=== PATIENT | male | born 1970 | race Caucasian/White ===

== ENCOUNTER → 2019-12-30 | Outpatient (CLI) | payer SELFPAY ==
[2019-12-31 01:21] LABS: African American GFR (CKD) 49.8 (60.0-200.0); Anion Gap 12.9 mmol/L (4.00-12.00); BUN/Creat Ratio 12.78 Ratio (12.00-20.00); Calcium 7.8 mg/dL (8.7-10.3); Carbon Dioxide 26.1 mmol/L (21.6-31.8); Magnesium 1.6 mg/dL (1.5-2.4); Potassium 2.9 mmol/L (3.5-5.5)
[2019-12-31 02:49] LABS: Non-African American GFR(CKD) 42.9 (60.0-200.0)
== END | disposition home or self-care (01) ==
LOC: LABWHC1 14:58
PROVIDERS: ATTEND Internal Medicine
DX: N18.6 End stage renal disease (principal)
CPT/HCPCS: 36415; 80048; 83735

== ENCOUNTER → 2020-01-19 | Outpatient (CLI) | payer OTHER ==
[2020-01-20 03:12] LABS: Anion Gap 16.9 mmol/L (4.00-12.00); Calcium 7.9 mg/dL (8.7-10.3); Carbon Dioxide 19.1 mmol/L (21.6-31.8); Magnesium 1.6 mg/dL (1.5-2.4); Potassium 4.3 mmol/L (3.5-5.5)
[2020-01-20 03:30] LABS: Non-African American GFR(CKD) 53.5 (60.0-200.0)
== END | disposition home or self-care (01) ==
LOC: LABWHC1 14:47
PROVIDERS: ATTEND Internal Medicine Nephrology
DX: E87.6 Hypokalemia (principal)
CPT/HCPCS: 36415; 80048; 83735

== ENCOUNTER 2020-01-24 15:13 | Inpatient (IN) | payer OTHER ==
[2020-01-24] MEDS ORDERED: cefTRIAXone IN SWFI 1,000 MG/10 ML SYRINGE IVP STA (15:31)
[2020-01-24] MEDS ORDERED: VANCOMYCIN IV PER PHARMACY 1 EACH MISC MISCELLANE PRN (15:31)
[2020-01-24] MEDS ORDERED: VANCOMYCIN 2,000 MG in SODIUM CHLORIDE 0.9% 500 ML 500 ML IVPB STA (15:35)
--- NOTE | 2020-01-24 15:44 | ED ---
General Adult HPI - General Chief complaint: Wound/Laceration Stated complaint: diabetic wound rt heel Time Seen by Provider: 01/24/20 15:23 Source: patient, RN notes reviewed, old records reviewed Mode of arrival: ambulatory Limitations: no limitations - History of Present Illness Initial comments: 49-year-old male history of type 2 diabetes presenting with left heel infection. Patient has history of chronic venous stasis, peripheral vascular disease, chronic kidney disease with a period of end-stage renal disease requiring hemodialysis. He has a right chest wall permacath. He is not currently on hemodialysis. He states he has not been monitoring his blood sugar at home. He was recently discharged from a group home and has been staying at home by himself. He denies significant pain. Denies fever or chills. - Related Data Home Medications Medication Instructions Recorded Confirmed Aspirin [[place] Aspirin EC] 81 mg PO DAILY 01/24/20 01/24/20 Multivitamins, Thera [Multivitamin 1 tab PO DAILY 01/24/20 01/24/20 (formulary)] Potassium Chloride ER [K-Dur 20] See Taper PO DAILY 01/24/20 01/24/20 Allergies Allergy/AdvReac Type Severity Reaction Status Date / Time Penicillins Allergy Swelling Verified 01/24/20 17:03 Sulfa (Sulfonamide Allergy Unknown Verified 01/24/20 17:03 Antibiotics) Review of Systems ROS Statement: Those systems with pertinent positive or pertinent negative responses have been documented in the HPI. ROS Other: All systems not noted in ROS Statement are negative. Past Medical History Past Medical History: Diabetes Mellitus History of Any Multi-Drug Resistant Organisms: MRSA Date of last positivie culture/infection: 2004 MDRO Source:: Rt shoulder Past Psychological History: No Psychological Hx Reported Smoking Status: Never smoker Past Alcohol Use History: None Reported, Unable to Obtain General Exam Limitations: no limitations General appearance: alert, in no apparent distress Head exam: Present: atraumatic, normocephalic Eye exam: Present: normal appearance, PERRL ENT exam: Present: normal exam Neck exam: Present: normal inspection. Absent: tenderness Respiratory exam: Present: normal lung sounds bilaterally. Absent: respiratory distress Cardiovascular Exam: Present: regular rate, normal rhythm GI/Abdominal exam: Present: soft. Absent: distended, tenderness, guarding Extremities exam: Present: other (Bilateral edema, chronic skin changes bilaterally, nonhealing wound to the left heel which is foul-smelling.) Neurological exam: Present: alert, oriented X3 Skin exam: Present: warm, dry, intact Course Vital Signs 01/24/20 01/24/20 15:16 17:12 Temperature 99.6 F Pulse Rate 92 96 Respiratory 18 18 Rate Blood Pressure 179/86 150/87 O2 Sat by Pulse 99 95 Oximetry - Reevaluation(s) Reevaluation #1: 01/24/20 16:36 While taking an x-ray, there was several maggots that fell from the left heel. Medical Decision Making - Medical Decision Making 49-year-old presenting with nonhealing wound on the left heel. This is gangrenous, x-ray tech does report that several maggots came from the wound when x-ray was being obtained. X-ray shows osteomyelitis, soft tissue area which is open to the environment. Patient has stable vital signs, hyperpyrexic but afebrile. He has normal white blood cell count, hemoglobin 9.6 with no baseline for comparison. He does have elevated blood sugar of 666, with pseudohyponatremia with sodium 128. His creatinine is normal at 0.08. Has a lactic acid 4.2 which I suspect is predominantly from dehydration secondary to hyperglycemia. He is given 1 L normal saline and placed on 75 mL an hour. He is immediately started on IV antibiotics, cultures have been obtained these results are pending. Patient will be admitted to internal medicine with both nephrology and vascular surgery on consult. - Lab Data Result diagrams: 01/24/20 16:24 01/24/20 16:24 Lab Results 01/24/20 01/24/20 01/24/20 Range/Units 16:24 16:24 16:24 WBC 7.5 (3.8-10.6) k/uL RBC 3.10 L (4.30-5.90) m/uL Hgb 9.6 L (13.0-17.5) gm/dL Hct 32.0 L (39.0-53.0) % MCV 103.4 H (80.0-100.0) fL MCH 31.0 (25.0-35.0) pg MCHC 30.0 L (31.0-37.0) g/dL RDW 14.6 (11.5-15.5) % Plt Count 242 (150-450) k/uL Neutrophils % 78 % Lymphocytes % 13 % Monocytes % 4 % Eosinophils % 1 % Basophils % 1 % Neutrophils # 5.9 (1.3-7.7) k/uL Lymphocytes # 1.0 (1.0-4.8) k/uL Monocytes # 0.3 (0-1.0) k/uL Eosinophils # 0.1 (0-0.7) k/uL Basophils # 0.1 (0-0.2) k/uL Hypochromasia Marked Macrocytosis Slight Sodium 128 L (137-145) mmol/L Potassium 4.7 (3.5-5.1) mmol/L Chloride 94 L (98-107) mmol/L Carbon Dioxide 24 (22-30) mmol/L Anion Gap 10 mmol/L BUN 12 (9-20) mg/dL Creatinine 1.08 (0.66-1.25) mg/dL Est GFR (CKD-EPI)AfAm >90 (>60 ml/min/1.73 sqM) Est GFR (CKD-EPI)NonAf 80 (>60 ml/min/1.73 sqM) Glucose 666 H* (74-99) mg/dL Plasma Lactic Acid Guille 4.2 H* (0.7-2.0) mmol/L Calcium 8.5 (8.4-10.2) mg/dL Magnesium 1.5 L (1.6-2.3) mg/dL Total Bilirubin 0.5 (0.2-1.3) mg/dL AST 29 (17-59) U/L ALT 12 (4-49) U/L Alkaline Phosphatase 315 H (38-126) U/L Total Protein 6.4 (6.3-8.2) g/dL Albumin 2.4 L (3.5-5.0) g/dL Disposition Clinical Impression: Hyperglycemia, Lactic acidosis, Diabetic foot ulcer Disposition: ADMITTED IP TO THIS [facility] Condition: Stable Is patient prescribed a controlled substance at d/c from ED?: No Referrals: Edson Urias MD [Primary Care Provider] - 1-2 days Decision to Admit Reason: Admit from EC Decision Date: 01/24/20 Decision Time: 17:17
[2020-01-24 16:36] LABS: Basophils # (A) 0.1 k/uL (0-0.2); Basophils % (A) 1 %; Eosinophils # (A) 0.1 k/uL (0-0.7); Eosinophils % (A) 1 %; HGB 9.6 gm/dL (13.0-17.5); Hypochromasia Marked; Lymphocytes % (A) 13 %; MCV 103.4 fL (80.0-100.0); Macrocytosis Slight; Mean Platelet Volume 8.9; Monocytes # (A) 0.3 k/uL (0-1.0); Monocytes % (A) 4 %; Neutrophils # (A) 5.9 k/uL (1.3-7.7); Neutrophils % (A) 78 %; Platelet Count 242 k/uL (150-450); RDW 14.6 % (11.5-15.5); WBC 7.5 k/uL (3.8-10.6)
[2020-01-24 16:47] LABS: ALT 12 U/L (4-49); AST 29 U/L (17-59); African American GFR (CKD) >90 (>60 ml/min/1.73 sqM); Albumin 2.4 g/dL (3.5-5.0); Alkaline Phosphatase 315 U/L (38-126); Anion Gap 10 mmol/L; Blood Urea Nitrogen 12 mg/dL (9-20); Calcium 8.5 mg/dL (8.4-10.2); Carbon Dioxide 24 mmol/L (22-30); Chloride 94 mmol/L (98-107); Magnesium 1.5 mg/dL (1.6-2.3); Non-African American GFR(CKD) 80 (>60 ml/min/1.73 sqM); Potassium 4.7 mmol/L (3.5-5.1); Sodium 128 mmol/L (137-145); Total Bilirubin 0.5 mg/dL (0.2-1.3); Total Protein 6.4 g/dL (6.3-8.2)
[2020-01-24] MEDS ORDERED: HYDROmorphone 0.5 MG/0.5 ML SYRINGE IVP PRN (16:57)
[2020-01-24] MEDS ORDERED: ACETAMINOPHEN TAB 325 MG TAB PO PRN (16:57)
[2020-01-24] MEDS ORDERED: NALOXONE 0.4 MG/ML 1 ML VIAL IV PRN (16:57)
[2020-01-24 17:03] LABS: Glucose 666 mg/dL (74-99)
--- NOTE | 2020-01-24 17:04 | XR ---
EXAMINATION TYPE: XR foot complete LT DATE OF EXAM: 01/24/2020 COMPARISON: NONE HISTORY: Infection TECHNIQUE: 3 views FINDINGS: There is plantar and Achilles calcaneal spurring. Plantar spurring is slightly irregular on the cortical surface. There is apparent large ulcer defect with soft tissue air at the plantar aspec t of the calcaneus. There is vascular calcification. There is soft tissue swelling of the forefoot. IMPRESSION: Soft tissue air. Osteomyelitis of the plantar aspect of the posterior calcaneus is possib le. No fracture. Extensive vascular calcification.
[2020-01-24] MEDS ORDERED: SODIUM CHLORIDE 0.9% 500 ML 500 ML IV ONE ×2 (17:09→17:16)
[2020-01-24] MEDS ORDERED: INSULIN REGULAR 100 UNIT in SODIUM CHLORIDE 0.9% 100 ML IV SCH (17:15)
[2020-01-24] MEDS: SODIUM CHLORIDE 0.9% 1,000 ML IV SCH (17:31)
[2020-01-24 18:58] LABS: Glucose,Whole Blood >600 mg/dL (75-99)
[2020-01-24 18:58] LABS: Glucose,Whole Blood >600 mg/dL (75-99)
[2020-01-25] MEDS: INSULIN REGULAR 100 UNIT in SODIUM CHLORIDE 0.9% 100 ML IV SCH ×2 (01:25→03:14)
[2020-01-25 02:01] LABS: Glucose,Whole Blood 450 mg/dL (75-99)
[2020-01-25 02:32] LABS: Glucose,Whole Blood 382 mg/dL (75-99)
[2020-01-25 03:04] LABS: Glucose,Whole Blood 331 mg/dL (75-99)
[2020-01-25 03:39] LABS: Glucose,Whole Blood 255 mg/dL (75-99)
[2020-01-25 04:17] LABS: Glucose,Whole Blood 199 mg/dL (75-99)
[2020-01-25] MEDS: VANCOMYCIN 1,750 MG in SODIUM CHLORIDE 0.9% 500 ML 500 ML IVPB SCH ×2 (04:19→17:44)
[2020-01-25 04:46] LABS: Glucose,Whole Blood 174 mg/dL (75-99)
[2020-01-25] MEDS: SODIUM CHLORIDE 0.9% 1,000 ML IV SCH ×2 (05:48→17:55)
[2020-01-25 06:34] LABS: Glucose,Whole Blood 117 mg/dL (75-99)
[2020-01-25 07:43] LABS: Glucose,Whole Blood 152 mg/dL (75-99)
[2020-01-25 08:37] LABS: African American GFR (CKD) >90 (>60 ml/min/1.73 sqM); Non-African American GFR(CKD) >90 (>60 ml/min/1.73 sqM)
--- NOTE | 2020-01-25 09:27 | P.GSCN ---
History of Present Illness History of present illness: 49-year-old white , male, patient is known to me from the past he has history of coronary failure be placed right IJ catheter in the past he's not on dialysis anymore he has a wound on his left heel 7 x 8 cm with foul-smelling necrotic wound with maggots he also has a venous stasis ulcer superficial ulcer on his left lower extremity. Medical history history of diabetes, history of chronic renal failure, history of venous hypertension with the following order wound on his left heel Neck examination neck is supple no bruit appreciated Chest is clear first and second sound normal patient has a right IJ catheter on the chest and right chest wall Abdomen soft and nontender Vascular femorals 1+ PTDP not palpable patient has a follow order wound on his left left heel measurement is 7 x 8 cm with the maggots Plan is debridement of the wound with deep culture and removal of the dialysis catheter patient doesn't want anymore dialysis Past Medical History Past Medical History: Diabetes Mellitus, Sleep Apnea/CPAP/BIPAP Additional Past Medical History / Comment(s): CHF, neuropathy History of Any Multi-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:: 2004 MDRO Source:: Rt shoulder Past Surgical History: Orthopedic Surgery Additional Past Surgical History / Comment(s): carpal tunnel in right wrist, MRSA infection drain in right shoulder Past Anesthesia/Blood Transfusion Reactions: No Reported Reaction Past Psychological History: No Psychological Hx Reported Smoking Status: Never smoker Past Alcohol Use History: None Reported, Unable to Obtain Past Drug Use History: None Reported Medications and Allergies Home Medications Medication Instructions Recorded Confirmed Type Aspirin [[place] Aspirin EC] 81 mg PO DAILY 01/24/20 01/24/20 History Multivitamins, Thera [Multivitamin 1 tab PO DAILY 01/24/20 01/24/20 History (formulary)] Potassium Chloride ER [K-Dur 20] See Taper PO DAILY 01/24/20 01/24/20 History Allergies Allergy/AdvReac Type Severity Reaction Status Date / Time Penicillins Allergy Swelling Verified 01/24/20 17:03 Sulfa (Sulfonamide Allergy Unknown Verified 01/24/20 17:03 Antibiotics) Surgical - Exam Vital Signs Temp Pulse Resp BP Pulse Ox 99.6 F 92 18 179/86 99 01/24/20 15:16 01/24/20 15:16 01/24/20 15:16 01/24/20 15:16 01/24/20 15:16 Results - Labs 01/24/20 16:24 01/25/20 08:02 Abnormal Lab Results - Last 24 Hours (Table) 01/24/20 01/24/20 01/24/20 Range/Units 16:24 16:24 16:24 RBC 3.10 L (4.30-5.90) m/uL Hgb 9.6 L (13.0-17.5) gm/dL Hct 32.0 L (39.0-53.0) % MCV 103.4 H (80.0-100.0) fL MCHC 30.0 L (31.0-37.0) g/dL Sodium 128 L (137-145) mmol/L Chloride 94 L (98-107) mmol/L Glucose 666 H* (74-99) mg/dL POC Glucose (mg/dL) (75-99) mg/dL Plasma Lactic Acid Guille 4.2 H* (0.7-2.0) mmol/L Magnesium 1.5 L (1.6-2.3) mg/dL Alkaline Phosphatase 315 H (38-126) U/L Albumin 2.4 L (3.5-5.0) g/dL 01/24/20 01/24/20 01/24/20 Range/Units 18:49 18:52 19:09 RBC (4.30-5.90) m/uL Hgb (13.0-17.5) gm/dL Hct (39.0-53.0) % MCV (80.0-100.0) fL MCHC (31.0-37.0) g/dL Sodium (137-145) mmol/L Chloride (98-107) mmol/L Glucose 681 H* (74-99) mg/dL POC Glucose (mg/dL) >600 H >600 H (75-99) mg/dL Plasma Lactic Acid Guille (0.7-2.0) mmol/L Magnesium (1.6-2.3) mg/dL Alkaline Phosphatase (38-126) U/L Albumin (3.5-5.0) g/dL 01/24/20 01/25/20 01/25/20 Range/Units 22:35 00:23 01:59 RBC (4.30-5.90) m/uL Hgb (13.0-17.5) gm/dL Hct (39.0-53.0) % MCV (80.0-100.0) fL MCHC (31.0-37.0) g/dL Sodium (137-145) mmol/L Chloride (98-107) mmol/L Glucose 685 H* 590 H* (74-99) mg/dL POC Glucose (mg/dL) 450 H (75-99) mg/dL Plasma Lactic Acid Guille (0.7-2.0) mmol/L Magnesium (1.6-2.3) mg/dL Alkaline Phosphatase (38-126) U/L Albumin (3.5-5.0) g/dL 01/25/20 01/25/20 01/25/20 Range/Units 02:30 03:01 03:37 RBC (4.30-5.90) m/uL Hgb (13.0-17.5) gm/dL Hct (39.0-53.0) % MCV (80.0-100.0) fL MCHC (31.0-37.0) g/dL Sodium (137-145) mmol/L Chloride (98-107) mmol/L Glucose (74-99) mg/dL POC Glucose (mg/dL) 382 H 331 H 255 H (75-99) mg/dL Plasma Lactic Acid Guille (0.7-2.0) mmol/L Magnesium (1.6-2.3) mg/dL Alkaline Phosphatase (38-126) U/L Albumin (3.5-5.0) g/dL 01/25/20 01/25/20 01/25/20 Range/Units 04:16 04:43 06:32 RBC (4.30-5.90) m/uL Hgb (13.0-17.5) gm/dL Hct (39.0-53.0) % MCV (80.0-100.0) fL MCHC (31.0-37.0) g/dL Sodium (137-145) mmol/L Chloride (98-107) mmol/L Glucose (74-99) mg/dL POC Glucose (mg/dL) 199 H 174 H 117 H (75-99) mg/dL Plasma Lactic Acid Guille (0.7-2.0) mmol/L Magnesium (1.6-2.3) mg/dL Alkaline Phosphatase (38-126) U/L Albumin (3.5-5.0) g/dL 01/25/20 Range/Units 07:33 RBC (4.30-5.90) m/uL Hgb (13.0-17.5) gm/dL Hct (39.0-53.0) % MCV (80.0-100.0) fL MCHC (31.0-37.0) g/dL Sodium (137-145) mmol/L Chloride (98-107) mmol/L Glucose (74-99) mg/dL POC Glucose (mg/dL) 152 H (75-99) mg/dL Plasma Lactic Acid Guille (0.7-2.0) mmol/L Magnesium (1.6-2.3) mg/dL Alkaline Phosphatase (38-126) U/L Albumin (3.5-5.0) g/dL Diabetes panel 01/24/20 01/24/20 01/24/20 Range/Units 16:24 19:09 22:35 Sodium 128 L (137-145) mmol/L Potassium 4.7 (3.5-5.1) mmol/L Chloride 94 L (98-107) mmol/L Carbon Dioxide 24 (22-30) mmol/L BUN 12 (9-20) mg/dL Creatinine 1.08 (0.66-1.25) mg/dL Glucose 666 H* 681 H* 685 H* (74-99) mg/dL Calcium 8.5 (8.4-10.2) mg/dL AST 29 (17-59) U/L ALT 12 (4-49) U/L Alkaline Phosphatase 315 H (38-126) U/L Total Protein 6.4 (6.3-8.2) g/dL Albumin 2.4 L (3.5-5.0) g/dL 01/25/20 01/25/20 Range/Units 00:23 08:02 Sodium (137-145) mmol/L Potassium (3.5-5.1) mmol/L Chloride (98-107) mmol/L Carbon Dioxide (22-30) mmol/L BUN (9-20) mg/dL Creatinine 0.98 (0.66-1.25) mg/dL Glucose 590 H* (74-99) mg/dL Calcium (8.4-10.2) mg/dL AST (17-59) U/L ALT (4-49) U/L Alkaline Phosphatase (38-126) U/L Total Protein (6.3-8.2) g/dL Albumin (3.5-5.0) g/dL Calcium panel 01/24/20 Range/Units 16:24 Calcium 8.5 (8.4-10.2) mg/dL Albumin 2.4 L (3.5-5.0) g/dL Pituitary panel 01/24/20 01/24/20 01/24/20 Range/Units 16:24 19:09 22:35 Sodium 128 L (137-145) mmol/L Potassium 4.7 (3.5-5.1) mmol/L Chloride 94 L (98-107) mmol/L Carbon Dioxide 24 (22-30) mmol/L BUN 12 (9-20) mg/dL Creatinine 1.08 (0.66-1.25) mg/dL Glucose 666 H* 681 H* 685 H* (74-99) mg/dL Calcium 8.5 (8.4-10.2) mg/dL 01/25/20 01/25/20 Range/Units 00:23 08:02 Sodium (137-145) mmol/L Potassium (3.5-5.1) mmol/L Chloride (98-107) mmol/L Carbon Dioxide (22-30) mmol/L BUN (9-20) mg/dL Creatinine 0.98 (0.66-1.25) mg/dL Glucose 590 H* (74-99) mg/dL Calcium (8.4-10.2) mg/dL Adrenal panel 01/24/20 01/24/20 01/24/20 Range/Units 16:24 19:09 22:35 Sodium 128 L (137-145) mmol/L Potassium 4.7 (3.5-5.1) mmol/L Chloride 94 L (98-107) mmol/L Carbon Dioxide 24 (22-30) mmol/L BUN 12 (9-20) mg/dL Creatinine 1.08 (0.66-1.25) mg/dL Glucose 666 H* 681 H* 685 H* (74-99) mg/dL Calcium 8.5 (8.4-10.2) mg/dL Total Bilirubin 0.5 (0.2-1.3) mg/dL AST 29 (17-59) U/L ALT 12 (4-49) U/L Alkaline Phosphatase 315 H (38-126) U/L Total Protein 6.4 (6.3-8.2) g/dL Albumin 2.4 L (3.5-5.0) g/dL 01/25/20 01/25/20 Range/Units 00:23 08:02 Sodium (137-145) mmol/L Potassium (3.5-5.1) mmol/L Chloride (98-107) mmol/L Carbon Dioxide (22-30) mmol/L BUN (9-20) mg/dL Creatinine 0.98 (0.66-1.25) mg/dL Glucose 590 H* (74-99) mg/dL Calcium (8.4-10.2) mg/dL Total Bilirubin (0.2-1.3) mg/dL AST (17-59) U/L ALT (4-49) U/L Alkaline Phosphatase (38-126) U/L Total Protein (6.3-8.2) g/dL Albumin (3.5-5.0) g/dL
[2020-01-25 09:42] LABS: Glucose,Whole Blood 184 mg/dL (75-99)
[2020-01-25 11:42] LABS: Glucose,Whole Blood 132 mg/dL (75-99)
[2020-01-25] MEDS: INSULIN ASPART (NovoLOG) 100 UNIT/ML VIAL SQ SCH ×3 (12:42→20:37)
[2020-01-25 13:38] VITALS: BMI 40.3
[2020-01-25 14:02] LABS: Anion Gap 6 mmol/L; Blood Urea Nitrogen 12 mg/dL (9-20); Calcium 8.1 mg/dL (8.4-10.2); Carbon Dioxide 25 mmol/L (22-30); Chloride 104 mmol/L (98-107); Glucose 159 mg/dL (74-99); Potassium 4.1 mmol/L (3.5-5.1); Sodium 135 mmol/L (137-145)
--- NOTE | 2020-01-25 14:21 | P.HPIM ---
History of Present Illness This is a pleasant 49 years old male with past medical history of diabetes mellitus, sleep apnea CPAP/BiPAP, neuropathy, CHF. History of MRSA infection. He presents because of diabetic left foot ulcer which she hasn't for about one month He denies chest pain, no dyspnea, no coughing, no diarrhea, no dysuria, no vomiting. No fever Labs showing sugar is controlled. Creatinine is within normal limits at 0.98 Foot x-ray showing soft tissue air, osteomyelitis of the posterior calcaneus as possible On admission patient was started on vancomycin, and ceftriaxone , also on normal saline at 75 mL/h Dr. Hernández from surgical team was consulted and is planning for debridement. , Patient states that he was taking insulin 70:30 as 110 units twice a day, he was not checking his sugar because he ran out of the supply Review of Systems CONSTITUTIONAL: No fever, no malaise, no fatigue. HEENT: No recent visual problems or hearing problems. Denied any sore throat. CARDIOVASCULAR: No orthopnea, PND, no palpitations, no syncope. PULMONARY: No shortness of breath, no cough, no hemoptysis. GASTROINTESTINAL: No diarrhea, no nausea, no vomiting, no abdominal pain. Normoactive bowel sounds. NEUROLOGICAL: No headaches, no weakness, no numbness. HEMATOLOGICAL: Denies any bleeding or petechiae. GENITOURINARY: Denies any burning micturition, frequency, or urgency. MUSCULOSKELETAL/RHEUMATOLOGICAL: Denies any joint pain, swelling, or any muscle pain. ENDOCRINE: Denies any polyuria or polydipsia. Past Medical History Past Medical History: Diabetes Mellitus, Sleep Apnea/CPAP/BIPAP Additional Past Medical History / Comment(s): CHF, neuropathy History of Any Multi-Drug Resistant Organisms: MRSA Date of last positivie culture/infection: 2004 MDRO Source:: Rt shoulder Past Surgical History: Orthopedic Surgery Additional Past Surgical History / Comment(s): carpal tunnel in right wrist, MRSA infection drain in right shoulder Past Anesthesia/Blood Transfusion Reactions: No Reported Reaction Past Psychological History: No Psychological Hx Reported Smoking Status: Never smoker Past Alcohol Use History: None Reported, Unable to Obtain Past Drug Use History: None Reported Medications and Allergies Home Medications Medication Instructions Recorded Confirmed Type Aspirin [[place] Aspirin EC] 81 mg PO DAILY 01/24/20 01/24/20 History Multivitamins, Thera [Multivitamin 1 tab PO DAILY 01/24/20 01/24/20 History (formulary)] Potassium Chloride ER [K-Dur 20] See Taper PO DAILY 01/24/20 01/24/20 History Allergies Allergy/AdvReac Type Severity Reaction Status Date / Time Penicillins Allergy Swelling Verified 01/24/20 17:03 Sulfa (Sulfonamide Allergy Unknown Verified 01/24/20 17:03 Antibiotics) Physical Exam Vitals: Vital Signs Temp Pulse Pulse Resp BP BP BP 01/25/20 07:45 18 01/25/20 07:00 98.3 F 80 18 123/82 01/25/20 01:00 99.3 F 94 20 137/76 01/24/20 18:50 98.5 F 92 18 131/80 01/24/20 17:12 96 18 150/87 01/24/20 15:16 99.6 F 92 18 179/86 Pulse Ox 01/25/20 07:45 01/25/20 07:00 100 01/25/20 01:00 98 01/24/20 18:50 95 01/24/20 17:12 95 01/24/20 15:16 99 Intake and Output 01/24/20 01/25/20 01/25/20 22:59 06:59 14:59 Intake Total 200 124.066 17.117 Balance 200 124.066 17.117 Intake: Intake, IV Titration 74.066 17.117 Amount Insulin Regular 100 unit 74.066 17.117 In Sodium Chloride 0.9% 100 ml @ Titrate IV .Q0M [facility] Rx#:[id number] Oral 200 Blood Product 50 Other: Voiding Method Toilet Toilet Diaper Diaper Incontinent Incontinent # Voids 2 2 # Bowel Movements 1 Weight 113.398 kg 113.398 kg GENERAL: The patient is alert and oriented x3, not in any acute distress. Well developed, well nourished. HEENT: Pupils are round and equally reacting to light. EOMI. No scleral icterus. No conjunctival pallor. Normocephalic, atraumatic. No pharyngeal erythema. No thyromegaly. CARDIOVASCULAR: S1 and S2 present. No murmurs, rubs, or gallops. PULMONARY: Chest is clear to auscultation, no wheezing or crackles. ABDOMEN: Soft, nontender, nondistended, normoactive bowel sounds. No palpable organomegaly. MUSCULOSKELETAL: No joint swelling or deformity. -EXTREMITIES: No cyanosis, clubbing, or pedal edema. Left foot ulcer, with dressing NEUROLOGICAL: Gross neurological examination did not reveal any focal deficits. SKIN: No rashes. No petechiae Results CBC & Chem 7: 01/24/20 16:24 01/25/20 08:02 Labs: Abnormal Lab Results - Last 24 Hours (Table) 01/24/20 01/24/20 01/24/20 Range/Units 16:24 16:24 16:24 RBC 3.10 L (4.30-5.90) m/uL Hgb 9.6 L (13.0-17.5) gm/dL Hct 32.0 L (39.0-53.0) % MCV 103.4 H (80.0-100.0) fL MCHC 30.0 L (31.0-37.0) g/dL Sodium 128 L (137-145) mmol/L Chloride 94 L (98-107) mmol/L Glucose 666 H* (74-99) mg/dL POC Glucose (mg/dL) (75-99) mg/dL Plasma Lactic Acid Guille 4.2 H* (0.7-2.0) mmol/L Calcium (8.4-10.2) mg/dL Magnesium 1.5 L (1.6-2.3) mg/dL Alkaline Phosphatase 315 H (38-126) U/L Albumin 2.4 L (3.5-5.0) g/dL 01/24/20 01/24/20 01/24/20 Range/Units 18:49 18:52 19:09 RBC (4.30-5.90) m/uL Hgb (13.0-17.5) gm/dL Hct (39.0-53.0) % MCV (80.0-100.0) fL MCHC (31.0-37.0) g/dL Sodium (137-145) mmol/L Chloride (98-107) mmol/L Glucose 681 H* (74-99) mg/dL POC Glucose (mg/dL) >600 H >600 H (75-99) mg/dL Plasma Lactic Acid Guille (0.7-2.0) mmol/L Calcium (8.4-10.2) mg/dL Magnesium (1.6-2.3) mg/dL Alkaline Phosphatase (38-126) U/L Albumin (3.5-5.0) g/dL 01/24/20 01/25/20 01/25/20 Range/Units 22:35 00:23 01:59 RBC (4.30-5.90) m/uL Hgb (13.0-17.5) gm/dL Hct (39.0-53.0) % MCV (80.0-100.0) fL MCHC (31.0-37.0) g/dL Sodium (137-145) mmol/L Chloride (98-107) mmol/L Glucose 685 H* 590 H* (74-99) mg/dL POC Glucose (mg/dL) 450 H (75-99) mg/dL Plasma Lactic Acid Guille (0.7-2.0) mmol/L Calcium (8.4-10.2) mg/dL Magnesium (1.6-2.3) mg/dL Alkaline Phosphatase (38-126) U/L Albumin (3.5-5.0) g/dL 01/25/20 01/25/20 01/25/20 Range/Units 02:30 03:01 03:37 RBC (4.30-5.90) m/uL Hgb (13.0-17.5) gm/dL Hct (39.0-53.0) % MCV (80.0-100.0) fL MCHC (31.0-37.0) g/dL Sodium (137-145) mmol/L Chloride (98-107) mmol/L Glucose (74-99) mg/dL POC Glucose (mg/dL) 382 H 331 H 255 H (75-99) mg/dL Plasma Lactic Acid Guille (0.7-2.0) mmol/L Calcium (8.4-10.2) mg/dL Magnesium (1.6-2.3) mg/dL Alkaline Phosphatase (38-126) U/L Albumin (3.5-5.0) g/dL 01/25/20 01/25/20 01/25/20 Range/Units 04:16 04:43 06:32 RBC (4.30-5.90) m/uL Hgb (13.0-17.5) gm/dL Hct (39.0-53.0) % MCV (80.0-100.0) fL MCHC (31.0-37.0) g/dL Sodium (137-145) mmol/L Chloride (98-107) mmol/L Glucose (74-99) mg/dL POC Glucose (mg/dL) 199 H 174 H 117 H (75-99) mg/dL Plasma Lactic Acid Guille (0.7-2.0) mmol/L Calcium (8.4-10.2) mg/dL Magnesium (1.6-2.3) mg/dL Alkaline Phosphatase (38-126) U/L Albumin (3.5-5.0) g/dL 01/25/20 01/25/20 01/25/20 Range/Units 07:33 08:02 09:40 RBC (4.30-5.90) m/uL Hgb (13.0-17.5) gm/dL Hct (39.0-53.0) % MCV (80.0-100.0) fL MCHC (31.0-37.0) g/dL Sodium 135 L (137-145) mmol/L Chloride (98-107) mmol/L Glucose 159 H (74-99) mg/dL POC Glucose (mg/dL) 152 H 184 H (75-99) mg/dL Plasma Lactic Acid Guille (0.7-2.0) mmol/L Calcium 8.1 L (8.4-10.2) mg/dL Magnesium (1.6-2.3) mg/dL Alkaline Phosphatase (38-126) U/L Albumin (3.5-5.0) g/dL 01/25/20 Range/Units 11:39 RBC (4.30-5.90) m/uL Hgb (13.0-17.5) gm/dL Hct (39.0-53.0) % MCV (80.0-100.0) fL MCHC (31.0-37.0) g/dL Sodium (137-145) mmol/L Chloride (98-107) mmol/L Glucose (74-99) mg/dL POC Glucose (mg/dL) 132 H (75-99) mg/dL Plasma Lactic Acid Guille (0.7-2.0) mmol/L Calcium (8.4-10.2) mg/dL Magnesium (1.6-2.3) mg/dL Alkaline Phosphatase (38-126) U/L Albumin (3.5-5.0) g/dL Thrombosis Risk Factor Assmnt - Choose All That Apply Each Factor Represents 1 point: Age 41-60 years, Obesity (BMI >25) Thrombosis Risk Factor Assessment Total Risk Factor Score: 2 Thrombosis Risk Factor Assessment Level: Low Risk Assessment and Plan Assessment: Diabetic left foot ulcer with possible osteomyelitis Diabetes mellitus Morbid obesity with BMI of 40 Sleep apnea on CPAP/BiPAP Chronic heart failure Diabetic neuropathy Plan: This is a pleasant 49 years old male who presents with diabetic left foot ulcer. Continue with antibiotic. Surgical team are planning to do debridement. Continue with vancomycin pharmacy to dose, continue ceftriaxone. Order insulin 70:30 as 70 units twice a day instead of home dose of 110 twice a day, continue with insulin sliding scale. Check hemoglobin A1c Labs and medication were reviewed.. Continue same treatment. Continue with symptomatic treatment. Resume home medication. Monitor lytes and vitals. DVT and GI prophylaxis. Further recommendations of the clinical course of the patient DVT prophylaxis: Subcutaneous heparin GI Prophylaxis: Pepcid PT/OT: Pending Prognosis is guarded
--- NOTE | 2020-01-25 15:27 | CONS ---
CONSULTATION REASON FOR CONSULT: History of renal failure and dialysis. HISTORY OF PRESENT ILLNESS: The patient is a 49-year-old male with history of acute kidney injury requiring hemodialysis. The patient was on dialysis for about 2 months. He states that he has been off dialysis for almost 3 weeks now. He continues to have the right IJ PermCath. Patient was admitted to the hospital with severe pain in his left leg. He has had a chronic wound on his left heel and patient noticed increased redness and there was drainage. Maggots were seen from the wound when patient was down in the x-ray department. He denies any fever. Patient's serum creatinine was 1.08. He states he has good urine output. Blood sugar was elevated at more than 600. Currently improved. The patient did receive a dose of vancomycin. PAST MEDICAL HISTORY: History of acute kidney injury, severe ATN requiring dialysis, type 2 diabetes, prolonged hospitalization with pneumonia and sepsis at [facility], peripheral neuropathy, chronic ulcer, left heel. PAST SURGICAL HISTORY: Right shoulder surgery, dialysis catheter placement. SOCIAL HISTORY: Negative for smoking, drug abuse or alcohol abuse. MEDICATIONS: Medications at home prior to admission included aspirin, multivitamins, potassium. REVIEW OF SYSTEMS: As per HPI. Other systems negative. PHYSICAL EXAMINATION: Patient is comfortable, awake, alert, oriented x3, not in any acute distress. Blood pressure is 123/82, heart rate 80 per minute, he is afebrile. Examination of the heart S1, S2. Examination of the lungs, bilateral breath sounds are heard. Abdomen is soft. Morbidly obese. Examination of lower extremities shows chronic skin changes. Left heel wound is currently dressed. No significant edema is seen. BLOOD BANK SPECIALIST exam shows patient is moving all 4 extremities. LABS: Show sodium 128, potassium 4.7, chloride 94, BUN 12, serum creatinine 1.08, blood sugar was 685. ASSESSMENT: 1. Acute kidney injury, hemodialysis dependent, currently off dialysis. We will remove the dialysis catheter. The patient has good urine output. His creatinine is 1.08. He is maintained on IV fluids which I will continue for now. 2. Left heel ulcer with osteomyelitis, status post evaluation by vascular surgery, currently being taken to OR for debridement. 3. Type 2 diabetes with severe hyperglycemia. The patient may need to be started on an insulin drip. 4. Morbid obesity. PLAN: Check labs today. DC PermCath while patient is in OR for wound debridement. Continue IV fluids. Avoid nephrotoxic medications and repeat labs in a.m. as well. Thank you for this consultation. We will continue to follow the patient with you during his hospitalization. ESTEVAN / FLOYD: [id number] /
[2020-01-25 15:35] LABS: Glucose,Whole Blood 180 mg/dL (75-99)
[2020-01-25 15:48] LABS: Glucose,Whole Blood 183 mg/dL (75-99)
[2020-01-25] MEDS ORDERED: fentaNYL (PF) 50 MCG/ML 2 ML AMP ONE (15:50)
[2020-01-25] MEDS ORDERED: MIDAZOLAM 2 MG/2 ML VIAL ONE (15:50)
[2020-01-25] MEDS ORDERED: PROPOFOL 10 MG/ML 20 ML VIAL IV ONE (15:50)
[2020-01-25] MEDS ORDERED: IV FLUID CONTINUATION 300 ML IV ONE (15:50)
[2020-01-25] MEDS ORDERED: LIDOCAINE 1% INJ 10MG/ML (20 ML MDV) SQ ONE (16:08)
[2020-01-25 16:49] LABS: Glucose,Whole Blood 177 mg/dL (75-99)
--- NOTE | 2020-01-25 17:39 | OP ---
OPERATIVE REPORT PREOP DIAGNOSIS: Chronic wound, left heel with maggots and followed wound measurement was 7.8 cm. OPERATION PERFORMED: Debridement and excision of the necrotic tissue down to the calcaneus most likely necrotizing fasciitis. OPERATION DETAILS: Patient was brought to the operating room. Left foot was prepped and drapes applied in the usual sterile manner. This patient came with the wound on his left heel with maggots and foul odor smell. Left foot was prepped and drapes applied in a sterile manner. 1% lidocaine was infiltrated with IV sedation. Using sharp knife, we made an incision on the heel side, deepened through skin fat and fascia down to the bone. Fascia was very infected and necrotizing fasciitis was noted and all the devitalized tissue was excised with a sharp knife down to the calcaneus bone. After excision of all the devitalized tissue, we irrigated the wound with hydrogen peroxide and saline and Betadine. Hemostasis was controlled and post wound debridement is 8 x 8 x 2 cm. Pressure dressing was applied. The patient tolerated the procedure well. Then attention was paid to the right side of the chest. This patient had a dialysis catheter placed in the past. The patient does not need dialysis. Right chest was prepped and drapes applied in a sterile manner 1% lidocaine infiltrated. Small incision was made at the exit site of the catheter. The catheter was removed. Incision was closed with 3-0 nylon. Dressing applied. The patient tolerated the procedure well. YOHANAL / NIMESHN: [id number] /
[2020-01-25 17:40] LABS: Glucose,Whole Blood 196 mg/dL (75-99)
[2020-01-25 20:14] LABS: Glucose,Whole Blood 227 mg/dL (75-99)
[2020-01-25] MEDS: FAMOTIDINE 20 MG/2 ML VIAL IV SCH (20:37)
[2020-01-25] MEDS: HEPARIN SODIUM,PORCINE 5,000 UNIT/ML 1 ML VIAL SQ SCH (20:37)
[2020-01-26] MEDS: VANCOMYCIN 1,750 MG in SODIUM CHLORIDE 0.9% 500 ML 500 ML IVPB SCH (04:12)
[2020-01-26 07:31] LABS: Glucose,Whole Blood 259 mg/dL (75-99)
[2020-01-26] MEDS: FAMOTIDINE 20 MG/2 ML VIAL IV SCH ×2 (07:52→19:35)
--- NOTE | 2020-01-26 08:18 | P.CONS ---
History of Present Illness - Reason for Consult Consult date: 01/25/20 Left diabetic foot wound with underlying Osteomyelitis Requesting physician: Caleb Hernández - Chief Complaint Left heel wound pain and worsening x few days - History of Present Illness Patient is a 49-year-old male with a past medical history taken for insulin-dependent diabetes mellitus patient did have a history of bilateral heel wound for a couple of months now and was recently in a longterm subsequently discharged home and is now presenting to the hospital with worsening of his left heel wound. Been getting worse for the last few days, patient did complain of pain to the left heel more of a throbbing 6-7 out of 10 and no radiation with associated swelling and redness . The symptom the patient presented to hospital on arrival to the ER the patient has been afebrile he did have x-rays of the left heel we did shows evidence of posterior calcaneus osteomyelitis patient was noticed to have a maggot infestation of his wound patient has been taken to the OR and status post surgical debridement of his wound which was noticed to be extending down to the calcaneum culture has been obtained patient has been empirically started on Rocephin and vancomycin because of his penicillin ALLERGY infectious disease was consulted for further management of antibiotic Review of Systems Positive point has been mentioned in the HPI rest of the systems are negative Past Medical History Past Medical History: Diabetes Mellitus, Sleep Apnea/CPAP/BIPAP Additional Past Medical History / Comment(s): CHF, neuropathy History of Any Multi-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:: 2004 MDRO Source:: Rt shoulder Past Surgical History: Orthopedic Surgery Additional Past Surgical History / Comment(s): carpal tunnel in right wrist, MRSA infection drain in right shoulder Past Anesthesia/Blood Transfusion Reactions: No Reported Reaction Past Psychological History: No Psychological Hx Reported Smoking Status: Never smoker Past Alcohol Use History: None Reported, Unable to Obtain Past Drug Use History: None Reported Medications and Allergies Home Medications Medication Instructions Recorded Confirmed Type Aspirin [[place] Aspirin EC] 81 mg PO DAILY 01/24/20 01/24/20 History Multivitamins, Thera [Multivitamin 1 tab PO DAILY 01/24/20 01/24/20 History (formulary)] Potassium Chloride ER [K-Dur 20] See Taper PO DAILY 01/24/20 01/24/20 History Allergies Allergy/AdvReac Type Severity Reaction Status Date / Time Penicillins Allergy Swelling Verified 01/24/20 17:03 Sulfa (Sulfonamide Allergy Unknown Verified 01/24/20 17:03 Antibiotics) Physical Exam Vitals: Vital Signs Temp Pulse Pulse Resp BP BP Pulse Ox 01/25/20 18:00 18 01/25/20 17:08 78 18 106/61 98 01/25/20 16:55 78 16 104/59 98 01/25/20 16:41 97.4 F L 79 18 103/57 98 01/25/20 14:30 97.6 F 80 16 136/80 99 01/25/20 07:45 18 01/25/20 07:00 98.3 F 80 18 123/82 100 01/25/20 01:00 99.3 F 94 20 137/76 98 01/24/20 18:50 98.5 F 92 18 131/80 95 Intake and Output 01/25/20 01/25/20 01/25/20 06:59 14:59 22:59 Intake Total 124.066 17.117 225 Output Total 10 Balance 124.066 17.117 215 Intake: IV 225 Intake, IV Titration 74.066 17.117 Amount Insulin Regular 100 unit 74.066 17.117 In Sodium Chloride 0.9% 100 ml @ Titrate IV .Q0M [facility] Rx#:[id number] Blood Product 50 Output: Estimated Blood Loss 10 Other: Voiding Method Toilet Toilet Diaper Diaper Incontinent Incontinent # Voids 2 2 # Bowel Movements 1 1 Weight 113.398 kg 113.398 kg GENERAL DESCRIPTION: Middle-aged male lying in bed, no distress. No tachypnea or accessory muscle of respiration use. HEENT: Shows Pallor , no scleral icterus. Oral mucous membrane is dry. No pharyngeal erythema or thrush NECK: Trachea central, no thyromegaly. LUNGS: Unlabored breathing. Clear to auscultation anteriorly. No wheeze or crackle. HEART: S1, S2, regular rate and rhythm. No loud murmur ABDOMEN: Soft, no tenderness , guarding or rigidity, no organomegaly EXTREMITIES: Left inguinal wound is currently dressed in OR dressing no drainage of the dressing, right heel stage III pressure ulcer with no significant cellulitis SKIN: No rash, no masses palpable. NEUROLOGICAL: The patient is awake, alert, oriented x3, mood and affect normal. Results CBC & Chem 7: 01/24/20 16:24 01/25/20 08:02 Labs: Abnormal Lab Results - Last 24 Hours (Table) 01/24/20 01/24/20 01/24/20 Range/Units 18:49 18:52 19:09 Sodium (137-145) mmol/L Glucose 681 H* (74-99) mg/dL POC Glucose (mg/dL) >600 H >600 H (75-99) mg/dL Calcium (8.4-10.2) mg/dL 01/24/20 01/25/20 01/25/20 Range/Units 22:35 00:23 01:59 Sodium (137-145) mmol/L Glucose 685 H* 590 H* (74-99) mg/dL POC Glucose (mg/dL) 450 H (75-99) mg/dL Calcium (8.4-10.2) mg/dL 01/25/20 01/25/20 01/25/20 Range/Units 02:30 03:01 03:37 Sodium (137-145) mmol/L Glucose (74-99) mg/dL POC Glucose (mg/dL) 382 H 331 H 255 H (75-99) mg/dL Calcium (8.4-10.2) mg/dL 01/25/20 01/25/20 01/25/20 Range/Units 04:16 04:43 06:32 Sodium (137-145) mmol/L Glucose (74-99) mg/dL POC Glucose (mg/dL) 199 H 174 H 117 H (75-99) mg/dL Calcium (8.4-10.2) mg/dL 01/25/20 01/25/20 01/25/20 Range/Units 07:33 08:02 09:40 Sodium 135 L (137-145) mmol/L Glucose 159 H (74-99) mg/dL POC Glucose (mg/dL) 152 H 184 H (75-99) mg/dL Calcium 8.1 L (8.4-10.2) mg/dL 01/25/20 01/25/20 01/25/20 Range/Units 11:39 15:15 15:44 Sodium (137-145) mmol/L Glucose (74-99) mg/dL POC Glucose (mg/dL) 132 H 180 H 183 H (75-99) mg/dL Calcium (8.4-10.2) mg/dL 01/25/20 01/25/20 Range/Units 16:47 17:37 Sodium (137-145) mmol/L Glucose (74-99) mg/dL POC Glucose (mg/dL) 177 H 196 H (75-99) mg/dL Calcium (8.4-10.2) mg/dL Microbiology - Last 24 Hours (Table) 01/24/20 16:24 Blood Culture - Preliminary Blood No Growth after 24 hours Assessment and Plan Assessment: 1- patient with stage IV left heel pressure ulcer with underlying osteomyelitis in patient with insulin-dependent diabetes mellitus and maggott infestation we will need to cover for both gram-positive as well as gram-negative pathogens 2- left heel stage III pressure ulcer with no slough like this 3- Patient with multiple antibiotic ALLERGIES that would limit the number of antibiotic safe to use (1) Acute osteomyelitis of left calcaneus Current Visit: Yes Status: Acute Code(s): M86.172 - OTHER ACUTE OSTEOMYELITIS, LEFT ANKLE AND FOOT SNOMED Code(s): 023649044 (2) Diabetic foot ulcer Current Visit: Yes Status: Acute Code(s): E11.621 - TYPE 2 DIABETES MELLITUS WITH FOOT ULCER; L97.509 - NON-PRESSURE CHRONIC ULCER OTH PRT UNSP FOOT W UNSP SEVERITY SNOMED Code(s): 554340721 Plan: 1- Vancomycin pharmacy to dose target trough of 15 while watching his kidney function and Vanco trough closely 2- Rocephin 2 g daily We will follow on clinical condition and cultures to further adjust medication if needed Thank you for this consultation will follow this patient with you
[2020-01-26 08:26] LABS: African American GFR (CKD) >90 (>60 ml/min/1.73 sqM); Anion Gap 3 mmol/L; Blood Urea Nitrogen 15 mg/dL (9-20); Calcium 7.4 mg/dL (8.4-10.2); Carbon Dioxide 27 mmol/L (22-30); Chloride 104 mmol/L (98-107); Glucose 245 mg/dL (74-99); Non-African American GFR(CKD) 80 (>60 ml/min/1.73 sqM); Potassium 4.7 mmol/L (3.5-5.1); Sodium 134 mmol/L (137-145)
[2020-01-26 08:43] LABS: Basophils % (A) 1 %; Eosinophils # (A) 0.2 k/uL (0-0.7); Eosinophils % (A) 3 %; HCT 27.4 % (39.0-53.0); HGB 8.6 gm/dL (13.0-17.5); Hypochromasia Marked; Lymphocytes # (A) 1.2 k/uL (1.0-4.8); Lymphocytes % (A) 21 %; MCH 31.6 pg (25.0-35.0); MCHC 31.5 g/dL (31.0-37.0); MCV 100.5 fL (80.0-100.0); Macrocytosis Slight; Mean Platelet Volume 9.1; Monocytes # (A) 0.4 k/uL (0-1.0); Monocytes % (A) 6 %; Neutrophils # (A) 3.8 k/uL (1.3-7.7); Neutrophils % (A) 66 %; Platelet Count 232 k/uL (150-450); RBC 2.72 m/uL (4.30-5.90); WBC 5.7 k/uL (3.8-10.6)
[2020-01-26] MEDS: INSULIN ASPART (NovoLOG) 100 UNIT/ML VIAL SQ SCH ×4 (09:04→21:22)
[2020-01-26] MEDS: INSULN ASP PRT/INSULIN ASPART 100 UNIT/ML 10 ML VIAL SQ SCH ×2 (09:06→17:24)
[2020-01-26] MEDS: HEPARIN SODIUM,PORCINE 5,000 UNIT/ML 1 ML VIAL SQ SCH ×2 (09:08→19:35)
[2020-01-26] MEDS: ASPIRIN 81 MG PO SCH (09:12)
[2020-01-26 09:44] LABS: Polychromasia Present
[2020-01-26] MEDS: SODIUM CHLORIDE 0.9% 1,000 ML IV SCH (10:49)
[2020-01-26 11:53] LABS: Glucose,Whole Blood 161 mg/dL (75-99)
[2020-01-26 15:21] LABS: Hemoglobin A1C 14.1 % (4.0-6.0)
--- NOTE | 2020-01-26 16:13 | P.PN ---
Subjective Progress Note Date: 01/26/20 Principal diagnosis: This is a pleasant 49 years old male with past medical history of diabetes mellitus, sleep apnea CPAP/BiPAP, neuropathy, CHF. History of MRSA infection. He presents because of diabetic left foot ulcer which she hasn't for about one month He denies chest pain, no dyspnea, no coughing, no diarrhea, no dysuria, no vomiting. No fever Labs showing sugar is controlled. Creatinine is within normal limits at 0.98 Foot x-ray showing soft tissue air, osteomyelitis of the posterior calcaneus as possible On admission patient was started on vancomycin, and ceftriaxone , also on normal saline at 75 mL/h Dr. Hernández from surgical team was consulted and is planning for debridement. , Patient states that he was taking insulin 70:30 as 110 units twice a day, he was not checking his sugar because he ran out of the supply 01/26/2020 Patient is seen and evaluated and follow-up status post debridement of the left foot ulcer with Dr. Hernández yesterday. Patient also had dialysis catheter discontinued of the right chest wall. Patient is currently maintained on IV antibiotics in the form of vancomycin and ceftriaxone and will continue at this time. Infectious disease is following. Currently patient has no reports of chest pain, shortness of breath, or palpitations. Patient is afebrile. No reports of nausea or vomiting and patient is tolerating diet. Case management and transition social worker following this patient may need placement at an ECF for continued IV antibiotic therapy and wound care or may continue with home care. Objective - Vital Signs Vital signs: Vital Signs Temp 98.6 F 01/26/20 15:01 Pulse 79 01/26/20 15:01 Resp 22 01/26/20 15:01 BP 137/84 01/26/20 15:01 Pulse Ox 97 01/26/20 15:01 Intake & Output 01/25/20 01/26/20 01/26/20 18:59 06:59 18:59 Intake Total 242.117 500 Output Total 10 Balance 232.117 500 Weight 113.398 kg Intake: IV 225 Intake, IV Titration 17.117 100 Amount Insulin Regular 100 unit 17.117 In Sodium Chloride 0.9% 100 ml @ Titrate IV .Q0M [facility] Rx#:[id number] cefTRIAXone 1 gm In 100 Sodium Chloride 0.9% 50 ml @ 100 mls/hr IVPB Q24HR [facility] Rx#:[id number] Oral 400 Output: Estimated Blood Loss 10 Other: Voiding Method Toilet Toilet Diaper Diaper Incontinent Incontinent # Voids 2 3 # Bowel Movements 1 - Exam GENERAL: The patient is alert and oriented x3, not in any acute distress. Well developed, well nourished. HEENT: Pupils are round and equally reacting to light. EOMI. No scleral icterus. No conjunctival pallor. Normocephalic, atraumatic. No pharyngeal erythema. No thyromegaly. CARDIOVASCULAR: S1 and S2 present. No murmurs, rubs, or gallops. PULMONARY: Chest is clear to auscultation, no wheezing or crackles. ABDOMEN: Soft, nontender, nondistended, normoactive bowel sounds. No palpable organomegaly. MUSCULOSKELETAL: No joint swelling or deformity. -EXTREMITIES: No cyanosis, clubbing, or pedal edema. Left foot ulcer, with dressing NEUROLOGICAL: Gross neurological examination did not reveal any focal deficits. Diffusely weak SKIN: No rashes. No petechiae - Labs CBC & Chem 7: 01/26/20 07:32 01/26/20 07:32 Labs: Abnormal Lab Results - Last 24 Hours (Table) 01/25/20 01/25/20 01/25/20 Range/Units 16:47 17:37 20:13 RBC (4.30-5.90) m/uL Hgb (13.0-17.5) gm/dL Hct (39.0-53.0) % MCV (80.0-100.0) fL Sodium (137-145) mmol/L Glucose (74-99) mg/dL POC Glucose (mg/dL) 177 H 196 H 227 H (75-99) mg/dL Hemoglobin A1c (4.0-6.0) % Calcium (8.4-10.2) mg/dL 01/26/20 01/26/20 01/26/20 Range/Units 07:22 07:32 07:32 RBC (4.30-5.90) m/uL Hgb (13.0-17.5) gm/dL Hct (39.0-53.0) % MCV (80.0-100.0) fL Sodium 134 L (137-145) mmol/L Glucose 245 H (74-99) mg/dL POC Glucose (mg/dL) 259 H (75-99) mg/dL Hemoglobin A1c 14.1 H (4.0-6.0) % Calcium 7.4 L (8.4-10.2) mg/dL 01/26/20 01/26/20 Range/Units 07:32 11:43 RBC 2.72 L (4.30-5.90) m/uL Hgb 8.6 L (13.0-17.5) gm/dL Hct 27.4 L (39.0-53.0) % MCV 100.5 H (80.0-100.0) fL Sodium (137-145) mmol/L Glucose (74-99) mg/dL POC Glucose (mg/dL) 161 H (75-99) mg/dL Hemoglobin A1c (4.0-6.0) % Calcium (8.4-10.2) mg/dL Microbiology - Last 24 Hours (Table) 01/25/20 16:15 Gram Stain - Preliminary Heel - Left Tissue Culture - Preliminary 01/25/20 16:15 Anaerobic Culture - Preliminary Heel - Left 01/24/20 16:24 Blood Culture - Preliminary Blood No Growth after 24 hours Assessment and Plan Assessment: Diabetic left foot ulcer with possible osteomyelitis, status post debridement Diabetes mellitus Morbid obesity with BMI of 40 Sleep apnea on CPAP/BiPAP Chronic heart failure Diabetic neuropathy DVT prophylaxis: Subcu heparin GI prophylaxis Pepcid Plan: Continue current medications, management, and symptomatic treatment. Patient recently underwent debridement yesterday with Dr. Hernández of the left foot ulcer with dressing that is dry and intact. Infectious disease is following and patient is maintained on IV antibiotics in the form of ankle and ceftriaxone and will continue at this time. Awaiting culture finalization. Continue monitoring blood sugars and continue sliding scale and long-acting. Will repeat a.m. labs. Case management and social work following and working on possible discharge planning needs or possible ECF placement if IV antibiotic therapy is required. Will continue to monitor patient closely. Further recommendations to follow based on clinical course. PT/OT to evaluate the patient.
[2020-01-26] MEDS ORDERED: VANCOMYCIN IV PER PHARMACY 1 EACH MISC MISCELLANE PRN (16:30)
[2020-01-26 17:02] LABS: Glucose,Whole Blood 128 mg/dL (75-99)
--- NOTE | 2020-01-26 18:22 | PN ---
PROGRESS NOTE Mr. Lopez has necrotizing fasciitis of the left foot heel with maggot formation and foul odor wound. Patient went for extensive debridement of the left foot down to the calcaneus bone. The patient has history of chronic renal failure and diabetes. Today we have changed the dressing. Patient still has some slough. The patient has less odor. We changed the dressing and used Medihoney gel for the wound, which we will use daily. We will be doing angiogram of the left leg to evaluate further circulation. Prognosis is guarded. MMODL / IJN: [id number] /
[2020-01-26 20:37] LABS: Glucose,Whole Blood 74 mg/dL (75-99)
--- NOTE | 2020-01-26 20:58 | PN ---
PROGRESS NOTE DATE OF SERVICE: 01/26/2020 REASON FOR FOLLOWUP: Left heel wound with underlying osteomyelitis. INTERVAL HISTORY: The patient is currently afebrile. The patient is breathing comfortably. The patient denies having any chest pain or shortness of breath or cough. No nausea, vomiting, abdominal pain or diarrhea. PHYSICAL EXAMINATION: Blood pressure 137/84 with a pulse of 79, temperature 98.6. He is 97% on room air. General description is a middle-aged male lying in bed in no distress. RESPIRATORY SYSTEM: Unlabored breathing. Clear to auscultation anteriorly. HEART: S1, S2. Regular rate and rhythm. ABDOMEN: Soft. No tenderness. Left heel is currently dressed up. No obvious drainage on the dressing. LABS: White count 5.7, creatinine 1.09. Vancomycin trough is elevated at 35.5. DIAGNOSTIC IMPRESSION AND PLAN: Patient with left heel wound with concern for underlying osteomyelitis in this patient with a significantly elevated vancomycin trough. Vancomycin will be discontinued to decrease the risk of nephrotoxicity. Daptomycin will be added and continue the Rocephin, adjusting antibiotics further based on the culture report. Continue supportive care. MMODL / IJN: [id number] /
[2020-01-27] MEDS: SODIUM CHLORIDE 0.9% 1,000 ML IV SCH ×2 (02:17→12:44)
[2020-01-27 07:23] LABS: Glucose,Whole Blood 87 mg/dL (75-99)
[2020-01-27 08:37] LABS: Vancomycin,Random 25.7 ug/mL
[2020-01-27] MEDS: INSULIN ASPART (NovoLOG) 100 UNIT/ML VIAL SQ SCH ×4 (08:52→21:12)
[2020-01-27] MEDS: HEPARIN SODIUM,PORCINE 5,000 UNIT/ML 1 ML VIAL SQ SCH ×2 (08:53→19:53)
[2020-01-27] MEDS: FAMOTIDINE 20 MG/2 ML VIAL IV SCH ×2 (08:53→19:53)
[2020-01-27] MEDS: ASPIRIN 81 MG PO SCH (08:54)
[2020-01-27] MEDS: INSULN ASP PRT/INSULIN ASPART 100 UNIT/ML 10 ML VIAL SQ SCH ×2 (09:52→21:07)
[2020-01-27 12:03] LABS: Glucose,Whole Blood 107 mg/dL (75-99)
[2020-01-27] MEDS ORDERED: CEFEPIME 2 GM in SODIUM CHLORIDE 0.9% 100 ML IVPB ONE (14:30)
--- NOTE | 2020-01-27 15:03 | P.PN ---
Subjective Progress Note Date: 01/27/20 Principal diagnosis: This is a pleasant 49 years old male with past medical history of diabetes mellitus, sleep apnea CPAP/BiPAP, neuropathy, CHF. History of MRSA infection. He presents because of diabetic left foot ulcer which she hasn't for about one month He denies chest pain, no dyspnea, no coughing, no diarrhea, no dysuria, no vomiting. No fever Labs showing sugar is controlled. Creatinine is within normal limits at 0.98 Foot x-ray showing soft tissue air, osteomyelitis of the posterior calcaneus as possible On admission patient was started on vancomycin, and ceftriaxone , also on normal saline at 75 mL/h Dr. Hernández from surgical team was consulted and is planning for debridement. , Patient states that he was taking insulin 70:30 as 110 units twice a day, he was not checking his sugar because he ran out of the supply 01/26/2020 Patient is seen and evaluated and follow-up status post debridement of the left foot ulcer with Dr. Hernández yesterday. Patient also had dialysis catheter discontinued of the right chest wall. Patient is currently maintained on IV antibiotics in the form of vancomycin and ceftriaxone and will continue at this time. Infectious disease is following. Currently patient has no reports of chest pain, shortness of breath, or palpitations. Patient is afebrile. No reports of nausea or vomiting and patient is tolerating diet. Case management and social work coordinator following this patient may need placement at an ECF for continued IV antibiotic therapy and wound care or may continue with home care. 01/27/2020 Patient is seen and evaluated in follow-up today with no acute overnight issues. Patient's IV vancomycin has been discontinued and antibiotics have been transitioned to IV daptomycin along with ceftriaxone and will continue while waiting for cultures to finalized. Tissue culture preliminary showing gram- negative bacilli and will await finalization to determine IV antibiotic therapy. Infectious disease is following. Patient will likely need IV antibiotic therapy in the outpatient setting. PT/OT to evaluate the patient as patient may also need some form of rehab for continued physical therapy due to gait dysf unction and weakness. Patient to continue with wound care. Patient's blood sugars were low this morning and normally takes 70/30 70 units which was held today and patient will be continued on sliding scale and will continue to monitor closely. Consult was also placed for the certified adapted physical educator as patient has had some variations in medications and poor blood glucose management. No reports of chest pain, shortness of breath, or palpitations. Patient is afebrile. No reports of nausea or vomiting and patient is tolerating diet. Objective - Vital Signs Vital signs: Vital Signs Temp 97.5 F L 01/27/20 07:00 Pulse 78 01/27/20 07:00 Resp 20 01/27/20 07:00 BP 136/86 01/27/20 07:00 Pulse Ox 97 01/27/20 07:00 Intake & Output 01/26/20 01/27/20 01/27/20 18:59 06:59 18:59 Intake Total 500 200 Balance 500 200 Intake: Intake, IV Titration 100 Amount cefTRIAXone 1 gm In 100 Sodium Chloride 0.9% 50 ml @ 100 mls/hr IVPB Q24HR [facility] Rx#:[id number] Oral 400 200 Other: Voiding Method Toilet Diaper Incontinent # Voids 1 1 # Bowel Movements 2 - Exam GENERAL: The patient is alert and oriented x3, not in any acute distress. Well developed, well nourished. HEENT: Pupils are round and equally reacting to light. EOMI. No scleral icterus. No conjunctival pallor. Normocephalic, atraumatic. No pharyngeal erythema. No thyromegaly. CARDIOVASCULAR: S1 and S2 present. No murmurs, rubs, or gallops. PULMONARY: Chest is clear to auscultation, no wheezing or crackles. ABDOMEN: Soft, nontender, nondistended, normoactive bowel sounds. No palpable organomegaly. MUSCULOSKELETAL: No joint swelling or deformity. -EXTREMITIES: No cyanosis, clubbing, or pedal edema. Left foot ulcer, with d ressing NEUROLOGICAL: Gross neurological examination did not reveal any focal deficits. Diffusely weak SKIN: No rashes. No petechiae - Labs CBC & Chem 7: 01/26/20 07:32 01/27/20 07:29 Labs: Abnormal Lab Results - Last 24 Hours (Table) 01/26/20 01/26/20 01/26/20 Range/Units 07:32 15:48 17:00 POC Glucose (mg/dL) 128 H (75-99) mg/dL Hemoglobin A1c 14.1 H (4.0-6.0) % Vancomycin Trough 35.5 H* ug/mL 01/26/20 01/27/20 Range/Units 20:36 11:42 POC Glucose (mg/dL) 74 L 107 H (75-99) mg/dL Hemoglobin A1c (4.0-6.0) % Vancomycin Trough ug/mL Microbiology - Last 24 Hours (Table) 01/25/20 16:15 Gram Stain - Preliminary Heel - Left Tissue Culture - Preliminary Gram Neg Bacilli 01/24/20 16:24 Blood Culture - Preliminary Blood No Growth after 48 hours Assessment and Plan Assessment: Diabetic left foot ulcer with possible osteomyelitis, status post debridement Diabetes mellitus Morbid obesity with BMI of 40 Sleep apnea on CPAP/BiPAP Chronic heart failure Diabetic neuropathy DVT prophylaxis: Subcu heparin GI prophylaxis Pepcid Plan: Continue current medications, management, and symptomatic treatment. Patient recently underwent debridement with Dr. Hernández of the left foot ulcer with dressing that is dry and intact. Infectious disease is following and patient is maintained on IV antibiotics in the form of daptomycin and ceftriaxone and will continue at this time. Vancomycin discontinued at this time. Tissue cultures preliminary showing gram-negative bacilli and Awaiting culture finalization. Continue monitoring blood sugars and continue sliding scale and long-acting. certified adapted physical educator consulted as patient is noncompliant due to running out of supplies and has been having variations in blood sugar readings. Will repeat a.m. labs. Case management and social work following and working on possible discharge planning needs or possible ECF placement if IV antibiotic therapy is required. Patient would like to go home with rehab and Homecare with IV antibiotic therapy. Will have PT/OT evaluate the patient. Will continue to monitor patient closely. Further recommendations to follow based on clinical course.
--- NOTE | 2020-01-27 15:31 | PN ---
PROGRESS NOTE DATE OF SERVICE: 01/27/2020. REASON FOR FOLLOWUP: Left heel osteomyelitis. INTERVAL HISTORY: Patient is currently afebrile. The patient is breathing comfortably. Denies having any chest pain or shortness of breath or cough. No nausea, vomiting, abdominal pain or pain to the left heel wound area. PHYSICAL EXAMINATION: Blood pressure 136/86, pulse of 73, temperature is 98.5, he is 97% on room air. General description is a middle-aged male, lying in bed in no distress. RESPIRATORY SYSTEM: Unlabored breathing, clear to auscultation anteriorly. HEART: S1, S2, regular rate and rhythm. ABDOMEN: Soft, no tenderness. Left heel did have a wound extending down to the bone. DIAGNOSTIC IMPRESSION AND PLAN: Patient with left heel osteomyelitis. Wound culture now showing a Gram-negative. Patient did have a PENICILLIN allergy, will adjust antibiotic to cefepime 2 g q.12 adjusting med for this with the culture report. May need a PICC line for outpatient antibiotics. Continue supportive care. MMODL / IJN: [id number] /
[2020-01-27 17:19] LABS: Glucose,Whole Blood 123 mg/dL (75-99)
[2020-01-27] MEDS: CEFEPIME 2 GM in SODIUM CHLORIDE 0.9% 100 ML IVPB SCH (19:53)
[2020-01-27 20:42] LABS: Glucose,Whole Blood 152 mg/dL (75-99)
[2020-01-28] MEDS: SODIUM CHLORIDE 0.9% 1,000 ML IV SCH ×2 (03:41→16:55)
[2020-01-28 07:59] LABS: Glucose,Whole Blood 219 mg/dL (75-99)
[2020-01-28] MEDS: CEFEPIME 2 GM in SODIUM CHLORIDE 0.9% 100 ML IVPB SCH ×2 (08:09→21:06)
[2020-01-28] MEDS: INSULIN ASPART (NovoLOG) 100 UNIT/ML VIAL SQ SCH ×4 (08:09→20:21)
[2020-01-28] MEDS: HEPARIN SODIUM,PORCINE 5,000 UNIT/ML 1 ML VIAL SQ SCH ×2 (08:09→20:26)
[2020-01-28] MEDS: FAMOTIDINE 20 MG/2 ML VIAL IV SCH (08:09)
[2020-01-28] MEDS: ASPIRIN 81 MG PO SCH (08:09)
[2020-01-28] MEDS: INSULN ASP PRT/INSULIN ASPART 100 UNIT/ML 10 ML VIAL SQ SCH ×2 (08:09→16:56)
[2020-01-28 08:17] LABS: Calcium 7.4 mg/dL (8.4-10.2); Potassium 5.1 mmol/L (3.5-5.1)
[2020-01-28 08:22] LABS: Basophils % (A) 1 %; Eosinophils # (A) 0.2 k/uL (0-0.7); Eosinophils % (A) 4 %; HCT 28.6 % (39.0-53.0); HGB 8.8 gm/dL (13.0-17.5); Hypochromasia Marked; Lymphocytes # (A) 0.9 k/uL (1.0-4.8); Lymphocytes % (A) 20 %; MCH 31.7 pg (25.0-35.0); MCHC 30.7 g/dL (31.0-37.0); Macrocytosis Slight; Mean Platelet Volume 8.7; Monocytes # (A) 0.3 k/uL (0-1.0); Monocytes % (A) 6 %; Neutrophils % (A) 67 %; Platelet Count 193 k/uL (150-450); RBC 2.78 m/uL (4.30-5.90); RDW 14.9 % (11.5-15.5); WBC 4.4 k/uL (3.8-10.6)
[2020-01-28 11:31] LABS: Glucose,Whole Blood 176 mg/dL (75-99)
--- NOTE | 2020-01-28 11:36 | CDI ---
Documentation Clarification Form Date: 01/28/2020 11:17:59 AM From: Arabella Petesron RN, CCDS Admit Date: 01/24/2020 04:58:00 PM Patient Name: Brown Lopez Visit Number: [id number] ATTENTION: The Clinical Documentation Specialists (CDI) and [facility] Coding Staff appreciate your assistance in clarifying documentation. Please respond to the clarification below the line at the bottom and electronically sign. The CDI & [facility] Coding staff will review the response and follow-up if needed. Please note: Queries are made part of the Legal Health Record. If you have any questions, please contact the author of this message via ITS. Dr. Purcell Sheet Please render your opinion on the clinical significance of the patients hemoglobin/hematocrit levels. History/Risk Factors: DM, DM left foot ulcer with osteo and gangrene, CHF Clinical indicators: 01/23-01/26 Hgb: 9.6/8.6/8.8 01/23-01/26 Hct: 32/27.4/28.6 01/24 Or rep: "Debridement and excision of the necrotic tissue down to the calcaneus most likely Necrotizing fasciitis." Treatment: 01/23 1L 0.9% NS IVF Bolus In order to capture the severity of condition, please clarify if the labs/clinical indicators signify: Acute blood loss anemia Acute on chronic blood loss anemia Chronic blood loss anemia Iron deficiency anemia Nutritional anemia Anemia of chronic kidney disease Unable to determine Other, please specify (Last Form Revision: August 2019) Unable to determine MTDD
--- NOTE | 2020-01-28 16:01 | P.PN ---
Subjective Progress Note Date: 01/28/20 Principal diagnosis: This is a pleasant 49 years old male with past medical history of diabetes mellitus, sleep apnea CPAP/BiPAP, neuropathy, CHF. History of MRSA infection. He presents because of diabetic left foot ulcer which she hasn't for about one month He denies chest pain, no dyspnea, no coughing, no diarrhea, no dysuria, no vomiting. No fever Labs showing sugar is controlled. Creatinine is within normal limits at 0.98 Foot x-ray showing soft tissue air, osteomyelitis of the posterior calcaneus as possible On admission patient was started on vancomycin, and ceftriaxone , also on normal saline at 75 mL/h Dr. Hernández from surgical team was consulted and is planning for debridement. , Patient states that he was taking insulin 70:30 as 110 units twice a day, he was not checking his sugar because he ran out of the supply 01/26/2020 Patient is seen and evaluated and follow-up status post debridement of the left foot ulcer with Dr. Hernández yesterday. Patient also had dialysis catheter discontinued of the right chest wall. Patient is currently maintained on IV antibiotics in the form of vancomycin and ceftriaxone and will continue at this time. Infectious disease is following. Currently patient has no reports of chest pain, shortness of breath, or palpitations. Patient is afebrile. No reports of nausea or vomiting and patient is tolerating diet. Case management and forensic social worker following this patient may need placement at an ECF for continued IV antibiotic therapy and wound care or may continue with home care. 01/27/2020 Patient is seen and evaluated in follow-up today with no acute overnight issues. Patient's IV vancomycin has been discontinued and antibiotics have been transitioned to IV daptomycin along with ceftriaxone and will continue while waiting for cultures to finalized. Tissue culture preliminary showing gram- negative bacilli and will await finalization to determine IV antibiotic therapy. Infectious disease is following. Patient will likely need IV antibiotic therapy in the outpatient setting. PT/OT to evaluate the patient as patient may also need some form of rehab for continued physical therapy due to gait dysf unction and weakness. Patient to continue with wound care. Patient's blood sugars were low this morning and normally takes 70/30 70 units which was held today and patient will be continued on sliding scale and will continue to monitor closely. Consult was also placed for the life skills educator as patient has had some variations in medications and poor blood glucose management. No reports of chest pain, shortness of breath, or palpitations. Patient is afebrile. No reports of nausea or vomiting and patient is tolerating diet. 01/28/2020 Patient is seen in follow-up currently nothing by mouth as patient will be undergoing an angiogram of the left lower extremity with Dr. Hernández today. Patient currently on IV antibiotics in the form of cefepime and daptomycin and will continue at this time. Infectious disease is following. Wound cultures are limited nares still showing gram-negative bacilli and awaiting for finalization. Patient may possibly need a PICC line for continued IV antibiotic therapy in the outpatient setting. Patient continues to request home care with rehab in the home setting and continued IV antibiotic therapy with [facility] although continues to be weak requiring assistance with gait and transfers and PT/OT evaluated the patient recommending subacute rehab. Case management and social following working on discharge planning needs. Patient denies any chest pain, shortness of breath, or palpitations. Patient is afebrile. No reports of nausea or vomiting. Patient's creatinine slightly elevated at 1.34. Blood sugars continue to be variable and elevated and is currently maintained on sliding scale along with long-acting. Adjustments to medications being made. Objective - Vital Signs Vital signs: Vital Signs Temp 97.6 F 01/28/20 14:33 Pulse 86 01/28/20 14:33 Resp 19 01/28/20 14:33 BP 116/80 01/28/20 14:33 Pulse Ox 92 L 01/28/20 14:33 Intake & Output 01/27/20 01/28/20 01/28/20 18:59 06:59 18:59 Intake Total 570 Balance 570 Weight 113.398 kg Intake: Intake, IV Titration 50 Amount cefTRIAXone 1 gm In 50 Sodium Chloride 0.9% 50 ml @ 100 mls/hr IVPB Q24HR [facility] Rx#:[id number] Oral 520 Other: Voiding Method Toilet Diaper Incontinent # Voids 1 1 3 # Bowel Movements 2 1 4 - Exam GENERAL: The patient is alert and oriented x3, not in any acute distress. Well developed, well nourished. HEENT: Pupils are round and equally reacting to light. EOMI. No scleral icterus. No conjunctival pallor. Normocephalic, atraumatic. No pharyngeal erythema. No thyromegaly. CARDIOVASCULAR: S1 and S2 present. No murmurs, rubs, or gallops. PULMONARY: Chest is clear to auscultation, no wheezing or crackles. ABDOMEN: Soft, nontender, nondistended, normoactive bowel sounds. No palpable organomegaly. MUSCULOSKELETAL: No joint swelling or deformity. -EXTREMITIES: No cyanosis, clubbing, or pedal edema. Left foot ulcer, with dressing NEUROLOGICAL: Gross neurological examination did not reveal any focal deficits. Diffusely weak SKIN: No rashes. No petechiae - Labs CBC & Chem 7: 01/28/20 06:58 01/28/20 06:58 Labs: Abnormal Lab Results - Last 24 Hours (Table) 01/27/20 01/27/20 01/28/20 Range/Units 17:13 20:39 06:58 RBC 2.78 L (4.30-5.90) m/uL Hgb 8.8 L (13.0-17.5) gm/dL Hct 28.6 L (39.0-53.0) % MCV 103.0 H (80.0-100.0) fL MCHC 30.7 L (31.0-37.0) g/dL Lymphocytes # 0.9 L (1.0-4.8) k/uL Chloride (98-107) mmol/L Creatinine (0.66-1.25) mg/dL Glucose (74-99) mg/dL POC Glucose (mg/dL) 123 H 152 H (75-99) mg/dL Calcium (8.4-10.2) mg/dL 01/28/20 01/28/20 01/28/20 Range/Units 06:58 07:58 11:30 RBC (4.30-5.90) m/uL Hgb (13.0-17.5) gm/dL Hct (39.0-53.0) % MCV (80.0-100.0) fL MCHC (31.0-37.0) g/dL Lymphocytes # (1.0-4.8) k/uL Chloride 109 H (98-107) mmol/L Creatinine 1.34 H (0.66-1.25) mg/dL Glucose 206 H (74-99) mg/dL POC Glucose (mg/dL) 219 H 176 H (75-99) mg/dL Calcium 7.4 L (8.4-10.2) mg/dL Microbiology - Last 24 Hours (Table) 01/24/20 16:24 Blood Culture - Preliminary Blood No Growth after 72 hours Assessment and Plan Assessment: Diabetic left foot ulcer with possible osteomyelitis, status post debridement Diabetes mellitus Anemia, most likely of chronic disease Morbid obesity with BMI of 40 Sleep apnea on CPAP/BiPAP Chronic heart failure Diabetic neuropathy DVT prophylaxis: Subcu heparin GI prophylaxis Pepcid Plan: Continue current medications, management, and symptomatic treatment. Patient recently underwent debridement with Dr. Hernández of the left foot ulcer with dressing that is dry and intact. Patient scheduled to undergo angiogram of the left lower extremity with Dr. Hernández today. Infectious disease is following and patient is maintained on IV antibiotics in the form of daptomycin and ceftriaxone and will continue at this time. Tissue cultures preliminary showing gram-negative bacilli and Awaiting culture finalization. Continue monitoring blood sugars and continue sliding scale and long-acting. inclusion paraeducator consulted as patient is noncompliant due to running out of supplies and has been having variations in blood sugar readings. Will repeat a.m. labs. Case management and social work following and working on possible discharge planning needs or possible ECF placement if IV antibiotic therapy is required. Patient would like to go home with rehab and Homecare with IV antibiotic therapy. PT/OT following. Will continue to monitor patient closely. Further recommendations to follow based on clinical course.
[2020-01-28 16:26] LABS: Glucose,Whole Blood 127 mg/dL (75-99)
[2020-01-28] MEDS ORDERED: IV FLUID CONTINUATION 250 ML IV ONE (17:00)
[2020-01-28] MEDS ORDERED: MIDAZOLAM 2 MG/2 ML VIAL IVP ONE (17:17)
[2020-01-28] MEDS ORDERED: LIDOCAINE 1% INJ 10MG/ML (20 ML MDV) SQ ONE (17:22)
[2020-01-28] MEDS ORDERED: IOPAMIDOL-250 100ML BTL INTRAARTER ONE (17:30)
--- NOTE | 2020-01-28 18:20 | IR ---
Fluoroscopy HISTORY: Pain in left foot 1.3 minutes fluoroscopy time supplied to the referring clinician. 173 intraoperative C-arm images do cument the procedure. See dictated report from vascular surgery.
--- NOTE | 2020-01-28 19:38 | OP ---
OPERATIVE REPORT PREOPERATIVE DIAGNOSIS: Infected wound, left heel. PROCEDURE: Left leg angiogram. PROCEDURE IN DETAIL: This patient was brought to the [facility] laborer. This gentleman had an infected wound on the left heel with maggots. We did the debridement down to the bone. The patient has a history of diabetes and obesity. Left groin was prepped and draped in sterile manner. Lidocaine 1% was infiltrated. Micropuncture was introduced into left common femoral artery. Micropuncture guidewire was passed and 4-Greek sheath was advanced on the top of the guidewire. Left upper leg angiogram was performed. Left iliac and common iliac were found to be patent. External was patent. Left common femoral and profunda were visualized. Left SFA was patent. Popliteal artery was visualized below the knee. Anterior tibial was open. Peroneal was open. Posterior tibial is occluded at the lower one third of the leg. 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 Peroneal is patent. PLAN: Continue with local wound care. MMODL / IJN: [id number] /
[2020-01-28 20:20] LABS: Glucose,Whole Blood 119 mg/dL (75-99)
[2020-01-28] MEDS: FAMOTIDINE 20 MG TAB PO SCH (20:26)
[2020-01-29] MEDS: SODIUM CHLORIDE 0.9% 1,000 ML IV SCH ×2 (03:05→18:53)
[2020-01-29] MEDS: INSULIN ASPART (NovoLOG) 100 UNIT/ML VIAL SQ SCH ×4 (10:39→20:34)
[2020-01-29] MEDS: INSULN ASP PRT/INSULIN ASPART 100 UNIT/ML 10 ML VIAL SQ SCH ×2 (10:47→20:30)
[2020-01-29] MEDS: metroNIDAZOLE 500 MG TAB PO SCH ×3 (10:48→22:01)
[2020-01-29] MEDS: FAMOTIDINE 20 MG TAB PO SCH ×2 (10:48→20:02)
[2020-01-29] MEDS: HEPARIN SODIUM,PORCINE 5,000 UNIT/ML 1 ML VIAL SQ SCH ×2 (10:48→20:02)
[2020-01-29] MEDS: ASPIRIN 81 MG PO SCH (10:48)
[2020-01-29] MEDS: CEFEPIME 2 GM in SODIUM CHLORIDE 0.9% 100 ML IVPB SCH ×2 (10:50→20:02)
[2020-01-29 11:16] LABS: Calcium 8.1 mg/dL (8.4-10.2); Potassium 4.8 mmol/L (3.5-5.1)
[2020-01-29 11:23] LABS: HCT 29.8 % (39.0-53.0); HGB 8.8 gm/dL (13.0-17.5); Hypochromasia Marked; MCH 30.3 pg (25.0-35.0); MCHC 29.5 g/dL (31.0-37.0); MCV 102.8 fL (80.0-100.0); Macrocytosis Slight; Mean Platelet Volume 8.7; Platelet Count 242 k/uL (150-450); RBC 2.89 m/uL (4.30-5.90); RDW 14.8 % (11.5-15.5)
[2020-01-29 12:07] LABS: Lymphocytes # (M) 0.75 k/uL (1.0-4.8); Myelocytes % 2 %; Neutrophils # (M) 3.65 k/uL (1.3-7.7); Neutrophils % (M) 73 %; Nucleated Red Blood Cells 0 /100 WBC (0-0); Total Cells Counted 200
[2020-01-29 12:34] LABS: Glucose,Whole Blood 177 mg/dL (75-99)
--- NOTE | 2020-01-29 15:09 | P.PN ---
Subjective Progress Note Date: 01/29/20 Principal diagnosis: This is a pleasant 49 years old male with past medical history of diabetes mellitus, sleep apnea CPAP/BiPAP, neuropathy, CHF. History of MRSA infection. He presents because of diabetic left foot ulcer which she hasn't for about one month He denies chest pain, no dyspnea, no coughing, no diarrhea, no dysuria, no vomiting. No fever Labs showing sugar is controlled. Creatinine is within normal limits at 0.98 Foot x-ray showing soft tissue air, osteomyelitis of the posterior calcaneus as possible On admission patient was started on vancomycin, and ceftriaxone , also on normal saline at 75 mL/h Dr. Hernández from surgical team was consulted and is planning for debridement. , Patient states that he was taking insulin 70:30 as 110 units twice a day, he was not checking his sugar because he ran out of the supply 01/26/2020 Patient is seen and evaluated and follow-up status post debridement of the left foot ulcer with Dr. Hernández yesterday. Patient also had dialysis catheter discontinued of the right chest wall. Patient is currently maintained on IV antibiotics in the form of vancomycin and ceftriaxone and will continue at this time. Infectious disease is following. Currently patient has no reports of chest pain, shortness of breath, or palpitations. Patient is afebrile. No reports of nausea or vomiting and patient is tolerating diet. Case management and social insurance analyst following this patient may need placement at an ECF for continued IV antibiotic therapy and wound care or may continue with home care. 01/27/2020 Patient is seen and evaluated in follow-up today with no acute overnight issues. Patient's IV vancomycin has been discontinued and antibiotics have been transitioned to IV daptomycin along with ceftriaxone and will continue while waiting for cultures to finalized. Tissue culture preliminary showing gram- negative bacilli and will await finalization to determine IV antibiotic therapy. Infectious disease is following. Patient will likely need IV antibiotic therapy in the outpatient setting. PT/OT to evaluate the patient as patient may also need some form of rehab for continued physical therapy due to gait dysf unction and weakness. Patient to continue with wound care. Patient's blood sugars were low this morning and normally takes 70/30 70 units which was held today and patient will be continued on sliding scale and will continue to monitor closely. Consult was also placed for the field merchandiser as patient has had some variations in medications and poor blood glucose management. No reports of chest pain, shortness of breath, or palpitations. Patient is afebrile. No reports of nausea or vomiting and patient is tolerating diet. 01/28/2020 Patient is seen in follow-up currently nothing by mouth as patient will be undergoing an angiogram of the left lower extremity with Dr. Hernández today. Patient currently on IV antibiotics in the form of cefepime and daptomycin and will continue at this time. Infectious disease is following. Wound cultures are limited nares still showing gram-negative bacilli and awaiting for finalization. Patient may possibly need a PICC line for continued IV antibiotic therapy in the outpatient setting. Patient continues to request home care with rehab in the home setting and continued IV antibiotic therapy with [facility] although continues to be weak requiring assistance with gait and transfers and PT/OT evaluated the patient recommending subacute rehab. Case management and social following working on discharge planning needs. Patient denies any chest pain, shortness of breath, or palpitations. Patient is afebrile. No reports of nausea or vomiting. Patient's creatinine slightly elevated at 1.34. Blood sugars continue to be variable and elevated and is currently maintained on sliding scale along with long-acting. Adjustments to medications being made. 01/29/2020 Patient is seen and evaluated in follow-up status post left lower extremity martin ogram with Dr. Hernández yesterday. Angiogram showed an occlusive left posterior tibial artery area wound cultures showing Morganella morganii, beta-hemolytic streptococcus F, Diptheroid species, and alphahemolytic Streptococcus. Anaerobic cultures preliminary showing gram-negative bacilli. Infectious disease is following. He shouldn't is maintained on IV antibiotics in the form of cefepime and oral Flagyl and will continue at this time. Patient was seen and evaluated again by physical therapy requiring mod to max assist and continues to recommend subacute rehab. Case management following and a referral was placed for rehab although if patient goes to an F he possibly has no coverage for continued PT/OT therapy but does with home care and physical therapy in the outpatient setting. Patient continues to want to return home with home care and states he does have help in the home. Patient is to continue remaining nonweightbearing on that left lower extremity. Dressing is dry and intact with Nils wraps noted to be dry as well. Long-acting 70/30 was held again today as patient blood sugar was in the low 100s. Patient is scheduled to receive a PICC line today and will continue with IV antibiotic therapy in the outpatient setting. Currently no reports of chest pain, shortness of breath, or palpitations. Patient is afebrile. No reports of nausea or vomiting and patient is tolerating diet. Objective - Vital Signs Vital signs: Vital Signs Temp 98 F 01/29/20 03:45 Pulse 77 01/29/20 03:45 Resp 18 01/29/20 03:45 BP 125/86 01/29/20 03:45 Pulse Ox 93 L 01/29/20 03:45 Intake & Output 01/28/20 01/29/20 01/29/20 18:59 06:59 18:59 Intake Total 50 540 Balance 50 540 Weight 128 kg Intake: IV 50 Oral 540 Other: Voiding Method Toilet Toilet Diaper Diaper Incontinent Incontinent # Voids 3 1 # Bowel Movements 4 - Exam GENERAL: The patient is alert and oriented x3, not in any acute distress. Well developed, well nourished. HEENT: Pupils are round and equally reacting to light. EOMI. No scleral icterus. No conjunctival pallor. Normocephalic, atraumatic. No pharyngeal erythema. No thyromegaly. CARDIOVASCULAR: S1 and S2 present. No murmurs, rubs, or gallops. PULMONARY: Chest is clear to auscultation, no wheezing or crackles. ABDOMEN: Soft, nontender, nondistended, normoactive bowel sounds. No palpable organomegaly. MUSCULOSKELETAL: No joint swelling or deformity. -EXTREMITIES: No cyanosis, clubbing, or pedal edema. Left foot ulcer, with dressing and Nils wrap noted to be dry and intact NEUROLOGICAL: Gross neurological examination did not reveal any focal deficits. Diffusely weak SKIN: No rashes. No petechiae - Labs CBC & Chem 7: 01/29/20 10:44 01/29/20 10:44 Labs: Abnormal Lab Results - Last 24 Hours (Table) 01/28/20 01/28/20 01/28/20 Range/Units 11:30 16:25 20:18 POC Glucose (mg/dL) 176 H 127 H 119 H (75-99) mg/dL Microbiology - Last 24 Hours (Table) 01/25/20 16:15 Gram Stain - Final Heel - Left Tissue Culture - Final Morganella morganii Beta Hemolytic Streptococcus F Diphtheroid species Alpha Hemolytic Streptococcus 01/25/20 16:15 Anaerobic Culture - Final Heel - Left Anaerobic Gm Negative Bacilli 01/24/20 16:24 Blood Culture - Preliminary Blood No Growth after 96 hours Assessment and Plan Assessment: Diabetic left foot ulcer with possible osteomyelitis, status post debridement Diabetes mellitus Anemia, most likely of chronic disease Morbid obesity with BMI of 40 Sleep apnea on CPAP/BiPAP Chronic heart failure Diabetic neuropathy DVT prophylaxis: Subcu heparin GI prophylaxis Pepcid Plan: Continue current medications, management, and symptomatic treatment. Patient recently underwent debridement with Dr. Hernández of the left foot ulcer with dressing that is dry and intact. Patient underwent angiogram of the left lower extremity with Dr. Hernández as mentioned previously. Patient is to receive a PICC line today. Infectious disease is following and patient is maintained on IV antibiotics in the form of cefepime and oral Flagyl and will continue at this time. Anaerobic cultures preliminary showing gram-negative bacilli and Awaiting culture finalization. Tissue culture showing Morganella morganii, beta- hemolytic streptococcus F, Diptheroid species, and alphahemolytic Streptococcus. Continue monitoring blood sugars and continue sliding scale and long-acting. poured pipe maker consulted as patient is noncompliant due to running out of supplies and has been having variations in blood sugar readings. Will repeat a.m. labs. Case management and social work following and working on possible discharge planning needs as Patient would like to go home with rehab and Homecare with IV antibiotic therapy. PT/OT following. Will continue to monitor patient closely. Further recommendations to follow based on clinical course. Possible discharge in 24-48 hours.
--- NOTE | 2020-01-29 15:18 | PN ---
PROGRESS NOTE DATE OF SERVICE: 01/29/2020 REASON FOR FOLLOWUP: Left heel osteomyelitis. INTERVAL HISTORY: Patient is currently afebrile, has been breathing comfortably. The patient denies having any chest pain, no shortness of breath or cough. No nausea, vomiting, abdominal pain or pain to the left heel area. PHYSICAL EXAMINATION: Blood pressure is 125/86, pulse of 77, temperature 98, he is 93% on room air. General description is a middle-aged male, lying in bed in no distress. RESPIRATORY SYSTEM: Unlabored breathing, clear to auscultation anteriorly. HEART: S1, S2. Regular rate and rhythm. ABDOMEN: Soft, no tenderness. The left heel is currently dressed up. LABS: Hemoglobin 8.8, white count 5.0, creatinine 1.44. Wound culture with Morganella Streptococcus anaerobes. DIAGNOSTIC IMPRESSION AND PLAN: Patient with left heel wound stage 4 pressure ulcer with underlying osteomyelitis, culture multiple pathogen. Patient with Morganella strep anaerobes. We will discontinue the daptomycin. Continue cefepime 2 g q.12 and add oral Flagyl 500 mg p.o. q.8 hours. He will need a PICC line which has been ordered and 6 weeks of IV antibiotics. Local wound care per Surgery. Continue supportive care. MMODL / IJN: [id number] /
[2020-01-29 17:04] LABS: Glucose,Whole Blood 204 mg/dL (75-99)
[2020-01-29 19:54] VITALS: RESP 17
[2020-01-29 20:26] LABS: Glucose,Whole Blood 224 mg/dL (75-99)
[2020-01-30] MEDS: SODIUM CHLORIDE 0.9% 1,000 ML IV SCH (06:37)
[2020-01-30 07:23] LABS: Glucose,Whole Blood 196 mg/dL (75-99)
[2020-01-30 07:36] LABS: Calcium 7.9 mg/dL (8.4-10.2); Potassium 4.8 mmol/L (3.5-5.1)
[2020-01-30 07:43] LABS: INR 1.2 (<1.2); Prothrombin Time 12.1 sec (9.0-12.0)
[2020-01-30 07:44] LABS: Basophils # (A) 0.1 k/uL (0-0.2); Basophils % (A) 1 %; Eosinophils # (A) 0.2 k/uL (0-0.7); Eosinophils % (A) 4 %; HCT 29.6 % (39.0-53.0); HGB 8.7 gm/dL (13.0-17.5); Hypochromasia Marked; Lymphocytes # (A) 0.9 k/uL (1.0-4.8); Lymphocytes % (A) 19 %; MCH 30.2 pg (25.0-35.0); MCHC 29.2 g/dL (31.0-37.0); MCV 103.4 fL (80.0-100.0); Macrocytosis Slight; Mean Platelet Volume 9.4; Monocytes # (A) 0.2 k/uL (0-1.0); Monocytes % (A) 5 %; Neutrophils # (A) 3.1 k/uL (1.3-7.7); Neutrophils % (A) 69 %; Platelet Count 241 k/uL (150-450); RBC 2.87 m/uL (4.30-5.90); RDW 14.6 % (11.5-15.5); WBC 4.6 k/uL (3.8-10.6)
[2020-01-30] MEDS: INSULN ASP PRT/INSULIN ASPART 100 UNIT/ML 10 ML VIAL SQ SCH (09:40)
[2020-01-30 09:41] LABS: Polychromasia Present
[2020-01-30] MEDS: FAMOTIDINE 20 MG TAB PO SCH (09:41)
[2020-01-30] MEDS: metroNIDAZOLE 500 MG TAB PO SCH (09:41)
[2020-01-30] MEDS: INSULIN ASPART (NovoLOG) 100 UNIT/ML VIAL SQ SCH ×2 (09:41→14:43)
[2020-01-30] MEDS: CEFEPIME 2 GM in SODIUM CHLORIDE 0.9% 100 ML IVPB SCH (09:41)
[2020-01-30] MEDS: ASPIRIN 81 MG PO SCH (09:41)
[2020-01-30] MEDS: HEPARIN SODIUM,PORCINE 5,000 UNIT/ML 1 ML VIAL SQ SCH (09:42)
[2020-01-30 10:31] VITALS: BP 137/77; TEMP 98
[2020-01-30 11:45] LABS: Glucose,Whole Blood 182 mg/dL (75-99)
[2020-01-30] MEDS ORDERED: LIDOCAINE 1% INJ 10MG/ML (20 ML MDV) ONE (12:04)
--- NOTE | 2020-01-30 12:35 | P.DS ---
Providers Date of admission: 01/24/20 16:58 Expected date of discharge: 01/30/20 Attending physician: Binh Hoover MD Consults: 01/24/20 16:58 Consult Physician Routine Consulting Provider: Caleb Hernández Consult Reason/Comments: Right chest wall permacath, peripheral vascular disease, nonhealing wound Do you want consulting provider notified?: Yes 01/25/20 16:59 Consult Physician Routine Consulting Provider: Yasemin Ohara Consult Reason/Comments: Wound Do you want consulting provider notified?: Already Contacted Primary care physician: Edson Urias [facility] Course: Final diagnosis Diabetic left foot ulcer with osteomyelitis of the plantar aspect of the posterior calcaneus, status post debridement Diabetes mellitus Anemia, most likely of chronic disease Morbid obesity with BMI of 40 Sleep apnea on CPAP/BiPAP Chronic heart failure Diabetic neuropathy DVT prophylaxis GI prophylaxis Discharge disposition Patient is being discharged in a stable condition with guarded prognosis to home. Patient will continue with home care in the outpatient setting. Patient will follow-up with Dr. Urias upon discharge. Patient also instructed to follow-up at the wound center with Dr. Hernández along with Dr. Ohara in the outpatient setting. Patient will continue IV antibiotics in the form of cefepime along with oral antibiotics in the form of Flagyl per infectious disease recommendations. Total time taken is 35 minutes. History of present illness This is an 49-year-old male who was recently admitted with a left foot diabetic foot ulcer with left posterior calcaneus osteomyelitis and was being closely monitored. Infectious disease was following. Patient underwent debridement with Dr. Hernández and tissue cultures finalized showing Morganella morganii, beta-hemolytic streptococcus F, Diptheroid species, and alphahemolytic Streptococcus. Anaerobic cultures preliminary showing gram-negative bacilli. Patient also underwent left lower extremity angiogram with Dr. Hernández and was found to have an occlusion of the left posterior tibial artery. Patient was treated with antibiotics in the form of IV cefepime along with oral Flagyl and will continue in the outpatient setting. Patient is currently receiving a PICC line for continued IV antibiotic therapy for a minimum of another 6 weeks. Patient will be following up with wound care center Dr. Hernández along with Dr. Ohara and his primary care provider in the outpatient setting. Patient was seen and evaluated by physical therapy recommending subacute rehab and patient is reluctant and would like to return home with home care and receive rehab in the home. Case management and social work following while hospitalized and was told patient would not be authorized for PT/OT therapy in the ECF setting for a minimum of another 45 days. Patient will be able to receive physical therapy in the home setting and arrangements are being made. Patient also has a history of diabetes and adjustments have been made to his insulin. Patient continues with NovoLog 7030 and will continue with 50 units during the day and 35 units at night and was instructed to continue monitoring closely and checking blood sugars at least 3 times a day and keeping a diary for primary care follow-up. Diabetic supplies were filled at the [facility] for patient upon d ischarge. Upon admission patient stated he had run out of supplies and was not testing his sugar although continued to give himself insulin. Patient also states that he has help in the home setting to get around and help him with follow-up appointments. Currently no reports of chest pain, shortness of breath, or palpitations. Patient is afebrile. No reports of nausea or vomiting and patient is tolerating diet. Guarded prognosis. On exam vital signs are stable. Temp is 98.0F, pulse is 83, respirations are 17, blood pressure is 137/77, oxygen saturation is 90-94 % on room air. Cardio S1, S2 are muffled. Respiratory shows diminished breath sounds at the bases with a few scattered rhonchi noted. Abdomen is soft and nontender. Nervous system shows mild diffuse weakness. Please refer to medication reconciliation sheet for a list of medications. Patient Condition at Discharge: Fair Plan - Discharge Summary New Discharge Prescriptions: New Insuln Asp Prt/Insulin Aspart [NovoLOG MIX 70-30 VIAL] 50 unit SQ AC-BRKFST 30 Days #3 vial Insuln Asp Prt/Insulin Aspart [NovoLOG MIX 70-30 VIAL] 35 unit SQ AC-SUPPER 30 Days #3 vial Famotidine [Pepcid] 20 mg PO Q12HR 30 Days #60 tab Continue Multivitamins, Thera [Multivitamin (formulary)] 1 tab PO DAILY Aspirin [Rennert Aspirin EC] 81 mg PO DAILY Discontinued Potassium Chloride ER [K-Dur 20] See Taper PO DAILY Discharge Medication List Aspirin [Rennert Aspirin EC] 81 mg PO DAILY 01/24/20 [History] Multivitamins, Thera [Multivitamin (formulary)] 1 tab PO DAILY 01/24/20 [History] Famotidine [Pepcid] 20 mg PO Q12HR 30 Days #60 tab 01/30/20 [Rx] Insuln Asp Prt/Insulin Aspart [NovoLOG MIX 70-30 VIAL] 35 unit SQ AC-SUPPER 30 Days #3 vial 01/30/20 [Rx] Insuln Asp Prt/Insulin Aspart [NovoLOG MIX 70-30 VIAL] 50 unit SQ AC-BRKFST 30 Days #3 vial 01/30/20 [Rx] Follow up Appointment(s)/Referral(s): Edson Urias MD [Primary Care Provider] - [facility]20 [facility] - As Needed Activity/Diet/Wound Care/Special Instructions: Diabetic supplies filled at [facility]. Please picking supervisor on discharge. Activity as tolerated Follow-up with primary care provider upon discharge Continue with home care and rehab Continue with IV antibiotics and follow-up with infectious disease along with the wound care center as instructed Continue monitoring blood sugars before meals at bedtime and keep a diary for primary care follow-up Repeat labs in 2-3 days Continue with wound care daily by cleansing with normal saline and applying therahoney to the wound done at 4 x 4 and then Kerlex and Nils wrap Discharge Disposition: HOME WITH HOME HEALTH SERVICES
[2020-01-30] MEDS ORDERED: LIDOCAINE 1% INJ 10MG/ML (20 ML MDV) SQ ONE (13:46)
--- NOTE | 2020-01-30 14:03 | PN ---
PROGRESS NOTE DATE OF SERVICE: 01/30/2020 REASON FOR FOLLOWUP: Left heel osteomyelitis. INTERVAL HISTORY: Patient is currently afebrile. The patient is breathing comfortably. The patient denies having any chest pain. No shortness of breath, no cough. No nausea, no vomiting, no abdominal pain or pain to the left heel wound area. PHYSICAL EXAMINATION: Blood pressure 137/77 with a pulse of 83, temperature 98. He is 98% on room air. General description is a middle-aged male, lying in bed in no distress. RESPIRATORY SYSTEM: Unlabored breathing, clear to auscultation anteriorly. HEART: S1, S2. Regular rate and rhythm. ABDOMEN: Soft, no tenderness. The left heel is currently dressed up. No obvious drainage on the dressing. LABS: Hemoglobin 8.1, white count of 4.6, creatinine 1.52. DIAGNOSTIC IMPRESSION AND PLAN: Patient with left heel stage IV pressure ulcer with underlying osteomyelitis. Culture positive for Morganella and Streptococcus anaerobes. Patient is covered with cefepime 2 g IV Flagyl to continue for a total of 6 weeks, local wound care with Hernán, vinayak wound VAC and to follow up in the Wound Care Center next week. MMODL / IJN: [id number] /
--- NOTE | 2020-01-30 14:39 | PN ---
PROGRESS NOTE A 49-year-old diabetic male, patient came with chronic wound to the heel with maggots and devitalized tissue on the heel area. The patient went with extensive debridement down to the calcaneus. All the tissues were removed, infected and we took the deep culture. Patient has been having IV antibiotic under care of Infectious Disease. We did angiogram. Patient has an anterior tibial and peroneal tibial is occluded at lower 1/3 of the leg. The patient is going home today. PLAN: The patient will be treated as an outpatient with home care using Medihoney gel daily and I will follow this patient in the Wound Clinic on Sunday. MMODL / IJN: [id number] /
[2020-01-30 15:30] VITALS: PULSE 80
--- NOTE | 2020-01-30 16:52 | IR ---
EXAMINATION TYPE: IR cvc insert >=5 years DATE OF EXAM: 01/30/2020 COMPARISON: NONE CLINICAL HISTORY: Need for long-term antibiotics MICROSTRATEGY REPORTS DEVELOPER: Dr. Zoe Akbar PROCEDURE: Maximal barrier technique utilized. After informed consent, the skin overlying the left brachial vein was localized with ultrasound and noted to be compressible and patent. An ultrasound image was obta ined and submitted on the patient's chart. Sterile technique utilized with the ultrasound machine. Th e skin overlying was prepped and draped and Lidocaine used for local anesthesia. Access was gained to the vein under ultrasound guidance with a 21 gauge needle and a 0.018 inch wire was advanced. A skin leobardo was made with a scalpel. Access site was dilated with Peel-Away sheath. 4 [place] single lumen c atheter tailored to the appropriate length of 43 cm and advanced such that the distal tip is at the c avoatrial junction. Spot image was obtained verifying PICC placement. Catheter was fixed to the skin and a sterile dressing was placed following hemostasis. Catheter was aspirated and flushed with salin e. Patient was discharged from the radiology department in stable condition without immediate complic ation. Fluoro time: 0.5 minutes Fluoroscopic images obtained: 5 IMPRESSION: Status post ultrasound-guided and fluoroscopic-guided PICC placement, ready for use.
[2020-01-30] MEDS ORDERED: INSULN ASP PRT/INSULIN ASPART 100 UNIT/ML 10 ML VIAL SQ SCH (17:30)
== END 2020-01-30 15:58 | disposition home health service (06) | DRG 628 ==
LOC: EC 15:13 → 4SSUR 16:58 → 3SCARD 01-28 17:14
PROVIDERS: ADMIT Internal Medicine; ATTEND Internal Medicine
PROC: 0QBM0ZZ Excision of Left Tarsal, Open Approach (ICD-10-PCS; principal; 2020-01-25 16:00)
PROC: B41G1ZZ Fluoroscopy of Left Lower Extremity Arteries using Low Osmolar Contrast (ICD-10-PCS; 2020-01-28 13:40)
PROC: 02HV33Z Insertion of Infusion Device into Superior Vena Cava, Percutaneous Approach (ICD-10-PCS; 2020-01-30)
DX: E11.69 Type 2 diabetes mellitus with other specified complication (principal); L89.624 Pressure ulcer of left heel, stage 4; M72.6 Necrotizing fasciitis; M86.172 Other acute osteomyelitis, left ankle and foot; L97.426 Non-pressure chronic ulcer of left heel and midfoot with bone involvement without evidence of necrosis; Z68.41 Body mass index [BMI] 40.0-44.9, adult; E87.2 Acidosis; B95.4 Other streptococcus as the cause of diseases classified elsewhere; B96.89 Other specified bacterial agents as the cause of diseases classified elsewhere; B87.9 Myiasis, unspecified; D63.8 Anemia in other chronic diseases classified elsewhere; E11.51 Type 2 diabetes mellitus with diabetic peripheral angiopathy without gangrene; I70.244 Atherosclerosis of native arteries of left leg with ulceration of heel and midfoot; Z11.59 Encounter for screening for other viral diseases; E11.621 Type 2 diabetes mellitus with foot ulcer; E11.40 Type 2 diabetes mellitus with diabetic neuropathy, unspecified; E11.65 Type 2 diabetes mellitus with hyperglycemia; E66.01 Morbid (severe) obesity due to excess calories; G47.30 Sleep apnea, unspecified; Z99.89 Dependence on other enabling machines and devices; I50.9 Heart failure, unspecified; I87.8 Other specified disorders of veins; Z86.14 Personal history of Methicillin resistant Staphylococcus aureus infection; R32 Unspecified urinary incontinence; Z79.82 Long term (current) use of aspirin; I11.0 Hypertensive heart disease with heart failure; Z79.4 Long term (current) use of insulin; Z88.0 Allergy status to penicillin; Z88.2 Allergy status to sulfonamides; Z88.1 Allergy status to other antibiotic agents; I77.1 Stricture of artery
CPT/HCPCS: 36200; 36415; 36573; 75710; 80048; 80053; 80202; 82565; 82947; 83036; 83605; 83735; 85025; 85610; 87040; 87070; 87075; 87077; 87186; 87205; 88304; 96360; 96365; 96366; 96375; 99285

== ENCOUNTER 2020-02-02 11:21 | Inpatient (IN) | payer OTHER ==
--- NOTE | 2020-02-02 12:08 | ED ---
Lower Extremity Injury HPI - General Chief Complaint: Extremity Injury, Lower Stated Complaint: Leg Wound Time Seen by Provider: 02/02/20 11:35 Source: patient, EMS, RN notes reviewed Mode of arrival: EMS Limitations: no limitations - History of Present Illness Initial Comments: 49-year-old male presents emergency Department with chief complaint of wounds as leg. Patient recently was admitted for 5-6 days in the hospital states his discharge on IV antibiotics. Patient states that his legs are blistering now, popping with increased redness, fevers and chills. Patient was treated for diabetic foot ulcer and currently is on antibiotics he does have wound care coming to his house. Patient states he cannot ambulate because of wounds out. He states there is drainage August. He shouldn't is a known have do diabetic, chronic kidney disease was on dialysis but not currently. Patient denies any difficult breathing, difficulty swallowing. - Related Data Home Medications Medication Instructions Recorded Confirmed Aspirin [[place] Aspirin EC] 81 mg PO DAILY 01/24/20 02/02/20 Multivitamins, Thera [Multivitamin 1 tab PO DAILY 01/24/20 02/02/20 (formulary)] Acetaminophen [Tylenol] 650 mg PO Q8H PRN 02/02/20 02/02/20 Previous Rx's Medication Instructions Recorded Famotidine [Pepcid] 20 mg PO Q12HR 30 Days #60 tab 01/30/20 Insuln Asp Prt/Insulin Aspart 35 unit SQ AC-SUPPER 30 Days #3 01/30/20 [NovoLOG MIX 70-30 VIAL] vial Insuln Asp Prt/Insulin Aspart 50 unit SQ AC-BRKFST 30 Days #3 01/30/20 [NovoLOG MIX 70-30 VIAL] vial metroNIDAZOLE [Flagyl] 500 mg PO Q8HR #90 tab 01/30/20 Allergies Allergy/AdvReac Type Severity Reaction Status Date / Time Penicillins Allergy Swelling Verified 02/02/20 12:35 Sulfa (Sulfonamide Allergy Unknown Verified 02/02/20 12:35 Antibiotics) Review of Systems ROS Statement: Those systems with pertinent positive or pertinent negative responses have been documented in the HPI. ROS Other: All systems not noted in ROS Statement are negative. Past Medical History Past Medical History: Diabetes Mellitus, Sleep Apnea/CPAP/BIPAP Additional Past Medical History / Comment(s): CHF, neuropathy History of Any Multi-Drug Resistant Organisms: MRSA Date of last positivie culture/infection: 2004 MDRO Source:: Rt shoulder Past Surgical History: Orthopedic Surgery Additional Past Surgical History / Comment(s): carpal tunnel in right wrist, MRSA infection drain in right shoulder Past Anesthesia/Blood Transfusion Reactions: No Reported Reaction Past Psychological History: No Psychological Hx Reported Smoking Status: Never smoker Past Alcohol Use History: None Reported, Unable to Obtain Past Drug Use History: None Reported General Exam Limitations: no limitations General appearance: alert, in no apparent distress Head exam: Present: atraumatic, normocephalic, normal inspection Eye exam: Present: normal appearance, PERRL, EOMI. Absent: scleral icterus, conjunctival injection, periorbital swelling ENT exam: Present: normal exam, normal oropharynx, mucous membranes moist Neck exam: Present: normal inspection, full ROM. Absent: tenderness, meningismus, lymphadenopathy Respiratory exam: Present: normal lung sounds bilaterally. Absent: respiratory distress, wheezes, rales, rhonchi, stridor Cardiovascular Exam: Present: regular rate, normal rhythm, normal heart sounds. Absent: systolic murmur, diastolic murmur, rubs, gallop, clicks Extremities exam: Present: other (Bilateral lower extremities there is significant erythema, blistering with serosanguineous and purulent drainage is extensive wound which has been recently debrided and sutures in place to left heel there pulses are palpable there is significant swelling noted) Neurological exam: Present: alert Skin exam: Present: warm, normal color. Absent: dry, rash Course Vital Signs 02/02/20 11:42 Temperature 97.7 F Pulse Rate 91 Respiratory 18 Rate Blood Pressure 139/79 O2 Sat by Pulse 98 Oximetry Procedures - Sepsis Sepsis Focused Exam #1 Time Sepsis Criteria Met: 14:01 Sepsis Focused Exam Date: 02/02/20 Sepsis Focused Exam Time: 14:01 Capillary Refill: < 2 Seconds: Fingers, Toes Peripheral Pulses: Weak: Posterior Tibialis (R), Posterior Tibialis (L), Dorsalis Pedis (R), Dorsalis Pedis (L), Strong: Radial (R), Radial (L) Skin Color: Normal for Patient Respiratory Exam: normal lung sounds Cardiovascular Exam: regular rate Medical Decision Making - Medical Decision Making Patient's lactic is 5.4, fluid bolus was ordered at ideal body weight of 65 kg. patient's case discussed with Dr. De La Torre. Patient be admitted for IV antibiotics. Patient's troponin daptomycin and cefepime. Patient's fluids were ordered. Patient will have ID evaluation. - Lab Data Result diagrams: 02/02/20 12:39 02/02/20 12:39 Lab Results 02/02/20 02/02/20 02/02/20 Range/Units 12:39 12:39 12:39 WBC 6.8 (3.8-10.6) k/uL RBC 2.71 L (4.30-5.90) m/uL Hgb 8.2 L (13.0-17.5) gm/dL Hct 28.3 L (39.0-53.0) % MCV 104.4 H (80.0-100.0) fL MCH 30.3 (25.0-35.0) pg MCHC 29.1 L (31.0-37.0) g/dL RDW 14.7 (11.5-15.5) % Plt Count 247 (150-450) k/uL Neutrophils % 70 % Lymphocytes % 20 % Monocytes % 4 % Eosinophils % 3 % Basophils % 1 % Neutrophils # 4.8 (1.3-7.7) k/uL Lymphocytes # 1.4 (1.0-4.8) k/uL Monocytes # 0.3 (0-1.0) k/uL Eosinophils # 0.2 (0-0.7) k/uL Basophils # 0.1 (0-0.2) k/uL Hypochromasia Marked Macrocytosis Moderate PT 13.2 H (9.0-12.0) sec INR 1.3 H (<1.2) APTT 30.2 H (22.0-30.0) sec Sodium 134 L (137-145) mmol/L Potassium 3.5 (3.5-5.1) mmol/L Chloride 107 (98-107) mmol/L Carbon Dioxide 15 L (22-30) mmol/L Anion Gap 12 mmol/L BUN 31 H (9-20) mg/dL Creatinine 1.90 H (0.66-1.25) mg/dL Est GFR (CKD-EPI)AfAm 47 (>60 ml/min/1.73 sqM) Est GFR (CKD-EPI)NonAf 40 (>60 ml/min/1.73 sqM) Glucose 461 H (74-99) mg/dL Plasma Lactic Acid Guille (0.7-2.0) mmol/L Calcium 8.0 L (8.4-10.2) mg/dL Total Bilirubin 0.9 (0.2-1.3) mg/dL AST 86 H (17-59) U/L ALT 45 (4-49) U/L Alkaline Phosphatase 549 H (38-126) U/L C-Reactive Protein 71.9 H (<10.0) mg/L Total Protein 6.3 (6.3-8.2) g/dL Albumin 2.3 L (3.5-5.0) g/dL 02/02/20 Range/Units 13:01 WBC (3.8-10.6) k/uL RBC (4.30-5.90) m/uL Hgb (13.0-17.5) gm/dL Hct (39.0-53.0) % MCV (80.0-100.0) fL MCH (25.0-35.0) pg MCHC (31.0-37.0) g/dL RDW (11.5-15.5) % Plt Count (150-450) k/uL Neutrophils % % Lymphocytes % % Monocytes % % Eosinophils % % Basophils % % Neutrophils # (1.3-7.7) k/uL Lymphocytes # (1.0-4.8) k/uL Monocytes # (0-1.0) k/uL Eosinophils # (0-0.7) k/uL Basophils # (0-0.2) k/uL Hypochromasia Macrocytosis PT (9.0-12.0) sec INR (<1.2) APTT (22.0-30.0) sec Sodium (137-145) mmol/L Potassium (3.5-5.1) mmol/L Chloride (98-107) mmol/L Carbon Dioxide (22-30) mmol/L Anion Gap mmol/L BUN (9-20) mg/dL Creatinine (0.66-1.25) mg/dL Est GFR (CKD-EPI)AfAm (>60 ml/min/1.73 sqM) Est GFR (CKD-EPI)NonAf (>60 ml/min/1.73 sqM) Glucose (74-99) mg/dL Plasma Lactic Acid Guille 5.4 H* (0.7-2.0) mmol/L Calcium (8.4-10.2) mg/dL Total Bilirubin (0.2-1.3) mg/dL AST (17-59) U/L ALT (4-49) U/L Alkaline Phosphatase (38-126) U/L C-Reactive Protein (<10.0) mg/L Total Protein (6.3-8.2) g/dL Albumin (3.5-5.0) g/dL Critical Care Time Critical Care Time: Yes Total Critical Care Time: 35 Critical Care Time: Total 35 minutes of critical extremitiesevaluation, review past medical history, prior records, ordering of labs x-ray and ordering antibiotics. Case discussed with admitting physician. Patiently admitted for IV antibiotics, infectious disease. Disposition Clinical Impression: Hyperglycemia, Sepsis, Diabetic foot ulcer, Acute osteomyelitis of left calcaneus, Bilateral cellulitis of lower leg Disposition: ADMITTED IP TO THIS [facility] Condition: Serious Referrals: Edson Urias MD [Primary Care Provider] - 1-2 days
--- NOTE | 2020-02-02 13:05 | XR ---
EXAMINATION TYPE: XR foot complete LT DATE OF EXAM: 02/02/2020 CLINICAL HISTORY: Infection with pain and swelling. TECHNIQUE: Frontal, lateral, and oblique images of the left foot are obtained. COMPARISON: Left foot x-ray January 24, 2020. FINDINGS: There is suspected interval progression in soft tissue infection and/or surgical change wi th suspected incision and drainage and removing of infected soft tissue or cellulitis as there is dim inished soft tissue surrounding the posterior inferior calcaneus. Persistent tiny superior and small inferior calcaneal spurs. New bony densities at this level could r eflect bony reaction. No definitive cortical destruction identified. Overlying vascular calcification is present. Moderate diffuse subcutaneous edema and soft tissue swel ling more prominent or progressed from prior study. Underlying demineralization is present. Moderate spurring midfoot joints noted. Flexion in the toes redemonstrated. IMPRESSION: As above. Clinical correlation advised to determine need for further workup by three-phas e bone scan.
[2020-02-02 13:06] LABS: Basophils # (A) 0.1 k/uL (0-0.2); Basophils % (A) 1 %; Eosinophils # (A) 0.2 k/uL (0-0.7); Eosinophils % (A) 3 %; HCT 28.3 % (39.0-53.0); HGB 8.2 gm/dL (13.0-17.5); Hypochromasia Marked; INR 1.3 (<1.2); Lymphocytes # (A) 1.4 k/uL (1.0-4.8); Lymphocytes % (A) 20 %; MCH 30.3 pg (25.0-35.0); MCHC 29.1 g/dL (31.0-37.0); MCV 104.4 fL (80.0-100.0); Macrocytosis Moderate; Monocytes # (A) 0.3 k/uL (0-1.0); Monocytes % (A) 4 %; Neutrophils # (A) 4.8 k/uL (1.3-7.7); Neutrophils % (A) 70 %; Partial Thromboplastin Time 30.2 sec (22.0-30.0); Platelet Count 247 k/uL (150-450); Prothrombin Time 13.2 sec (9.0-12.0); RBC 2.71 m/uL (4.30-5.90); RDW 14.7 % (11.5-15.5); WBC 6.8 k/uL (3.8-10.6)
[2020-02-02 13:14] LABS: Albumin 2.3 g/dL (3.5-5.0); C Reactive Protein 71.9 mg/L (<10.0); Potassium 3.5 mmol/L (3.5-5.1); Total Bilirubin 0.9 mg/dL (0.2-1.3); Total Protein 6.3 g/dL (6.3-8.2)
[2020-02-02] MEDS ORDERED: SODIUM CHLORIDE 0.9% 2,000 ML IV ONE (13:40)
[2020-02-02] MEDS ORDERED: INSULIN REGULAR 100 UNIT/ML VIAL IV ONE (13:41)
[2020-02-02] MEDS ORDERED: CEFEPIME 2 GM in SODIUM CHLORIDE 0.9% 100 ML IVPB STA (13:42)
[2020-02-02] MEDS: SODIUM CHLORIDE 0.9% 1,000 ML IV SCH (13:57)
[2020-02-02] MEDS ORDERED: NALOXONE 0.4 MG/ML 1 ML VIAL IV PRN (14:03)
[2020-02-02 14:04] LABS: Glucose,Whole Blood 472 mg/dL (75-99)
[2020-02-02] MEDS ORDERED: DAPTOmycin 500 MG in SODIUM CHLORIDE 0.9% 50 ML IVPB ONE (14:30)
[2020-02-02 16:42] LABS: Glucose,Whole Blood 384 mg/dL (75-99)
--- NOTE | 2020-02-02 17:06 | P.GSCN ---
History of Present Illness History of present illness: 49-year-old diabetic male patient came last week with history of open wound on his left heel infected with the maggots in the wound patient was taken to surgery had extensive debridement down to the calcaneus bone. Patient also had angiogram done which showed a femoral popliteal is patent anterior tibial and peroneal is patent. And posterior tibial is occluded at the ankle. Patient tejas michel went home he developed extensive cellulitis of the both lower extremity with some blister formation on the right lower extremity. Patient has been admitted with IV antibiotic patient has a large open wound on the left heel we've been treating with local wound care Medical history diabetes chronic renal failure patient is not on dialysis Neck examination neck is supple no bruit appreciated Chest is clear good entry both lungs first and second sound normal Abdomen soft nontender Vascular examination femorals are palpable PT DP by the Doppler patient has a large wound on the left heel which we've been treating for local wound care patient has a bilateral cellulitis and some blister formation right lower extremity Plan is Silvadene cream to the both lower extremity with the Kerlix and Nils wrap and left heel we've been using medihoney gel change dressing daily follow with you Past Medical History Past Medical History: Diabetes Mellitus, Sleep Apnea/CPAP/BIPAP Additional Past Medical History / Comment(s): CHF, neuropathy History of Any Multi-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:: 2004 MDRO Source:: Rt shoulder Past Surgical History: Orthopedic Surgery Additional Past Surgical History / Comment(s): carpal tunnel in right wrist, MRSA infection drain in right shoulder Past Anesthesia/Blood Transfusion Reactions: No Reported Reaction Past Psychological History: No Psychological Hx Reported Smoking Status: Never smoker Past Alcohol Use History: None Reported, Unable to Obtain Past Drug Use History: None Reported Medications and Allergies Home Medications Medication Instructions Recorded Confirmed Type Aspirin [[place] Aspirin EC] 81 mg PO DAILY 01/24/20 02/02/20 History Multivitamins, Thera [Multivitamin 1 tab PO DAILY 01/24/20 02/02/20 History (formulary)] Famotidine [Pepcid] 20 mg PO Q12HR 30 Days #60 tab 01/30/20 02/02/20 Rx Insuln Asp Prt/Insulin Aspart 35 unit SQ AC-SUPPER 30 Days #3 01/30/20 02/02/20 Rx [NovoLOG MIX 70-30 VIAL] vial Insuln Asp Prt/Insulin Aspart 50 unit SQ AC-BRKFST 30 Days #3 01/30/20 02/02/20 Rx [NovoLOG MIX 70-30 VIAL] vial metroNIDAZOLE [Flagyl] 500 mg PO Q8HR #90 tab 01/30/20 02/02/20 Rx Acetaminophen [Tylenol] 650 mg PO Q8H PRN 02/02/20 02/02/20 History Allergies Allergy/AdvReac Type Severity Reaction Status Date / Time Penicillins Allergy Swelling Verified 02/02/20 12:35 Sulfa (Sulfonamide Allergy Unknown Verified 02/02/20 12:35 Antibiotics) Surgical - Exam Vital Signs Temp Pulse Resp BP Pulse Ox 97.7 F 91 18 139/79 98 02/02/20 11:42 02/02/20 11:42 02/02/20 11:42 02/02/20 11:42 02/02/20 11:42 Results - Labs 02/02/20 12:39 02/02/20 12:39 Abnormal Lab Results - Last 24 Hours (Table) 02/02/20 02/02/20 02/02/20 Range/Units 12:39 12:39 12:39 RBC 2.71 L (4.30-5.90) m/uL Hgb 8.2 L (13.0-17.5) gm/dL Hct 28.3 L (39.0-53.0) % MCV 104.4 H (80.0-100.0) fL MCHC 29.1 L (31.0-37.0) g/dL PT 13.2 H (9.0-12.0) sec INR 1.3 H (<1.2) APTT 30.2 H (22.0-30.0) sec Sodium 134 L (137-145) mmol/L Carbon Dioxide 15 L (22-30) mmol/L BUN 31 H (9-20) mg/dL Creatinine 1.90 H (0.66-1.25) mg/dL Glucose 461 H (74-99) mg/dL POC Glucose (mg/dL) (75-99) mg/dL Plasma Lactic Acid Guille (0.7-2.0) mmol/L Calcium 8.0 L (8.4-10.2) mg/dL AST 86 H (17-59) U/L Alkaline Phosphatase 549 H (38-126) U/L C-Reactive Protein 71.9 H (<10.0) mg/L Albumin 2.3 L (3.5-5.0) g/dL 02/02/20 02/02/20 02/02/20 Range/Units 13:01 13:52 15:42 RBC (4.30-5.90) m/uL Hgb (13.0-17.5) gm/dL Hct (39.0-53.0) % MCV (80.0-100.0) fL MCHC (31.0-37.0) g/dL PT (9.0-12.0) sec INR (<1.2) APTT (22.0-30.0) sec Sodium (137-145) mmol/L Carbon Dioxide (22-30) mmol/L BUN (9-20) mg/dL Creatinine (0.66-1.25) mg/dL Glucose (74-99) mg/dL POC Glucose (mg/dL) 472 H (75-99) mg/dL Plasma Lactic Acid Guille 5.4 H* 4.0 H* (0.7-2.0) mmol/L Calcium (8.4-10.2) mg/dL AST (17-59) U/L Alkaline Phosphatase (38-126) U/L C-Reactive Protein (<10.0) mg/L Albumin (3.5-5.0) g/dL 02/02/20 Range/Units 16:41 RBC (4.30-5.90) m/uL Hgb (13.0-17.5) gm/dL Hct (39.0-53.0) % MCV (80.0-100.0) fL MCHC (31.0-37.0) g/dL PT (9.0-12.0) sec INR (<1.2) APTT (22.0-30.0) sec Sodium (137-145) mmol/L Carbon Dioxide (22-30) mmol/L BUN (9-20) mg/dL Creatinine (0.66-1.25) mg/dL Glucose (74-99) mg/dL POC Glucose (mg/dL) 384 H (75-99) mg/dL Plasma Lactic Acid Guille (0.7-2.0) mmol/L Calcium (8.4-10.2) mg/dL AST (17-59) U/L Alkaline Phosphatase (38-126) U/L C-Reactive Protein (<10.0) mg/L Albumin (3.5-5.0) g/dL Diabetes panel 02/02/20 Range/Units 12:39 Sodium 134 L (137-145) mmol/L Potassium 3.5 (3.5-5.1) mmol/L Chloride 107 (98-107) mmol/L Carbon Dioxide 15 L (22-30) mmol/L BUN 31 H (9-20) mg/dL Creatinine 1.90 H (0.66-1.25) mg/dL Glucose 461 H (74-99) mg/dL Calcium 8.0 L (8.4-10.2) mg/dL AST 86 H (17-59) U/L ALT 45 (4-49) U/L Alkaline Phosphatase 549 H (38-126) U/L Total Protein 6.3 (6.3-8.2) g/dL Albumin 2.3 L (3.5-5.0) g/dL Calcium panel 02/02/20 Range/Units 12:39 Calcium 8.0 L (8.4-10.2) mg/dL Albumin 2.3 L (3.5-5.0) g/dL Pituitary panel 02/02/20 Range/Units 12:39 Sodium 134 L (137-145) mmol/L Potassium 3.5 (3.5-5.1) mmol/L Chloride 107 (98-107) mmol/L Carbon Dioxide 15 L (22-30) mmol/L BUN 31 H (9-20) mg/dL Creatinine 1.90 H (0.66-1.25) mg/dL Glucose 461 H (74-99) mg/dL Calcium 8.0 L (8.4-10.2) mg/dL Adrenal panel 02/02/20 Range/Units 12:39 Sodium 134 L (137-145) mmol/L Potassium 3.5 (3.5-5.1) mmol/L Chloride 107 (98-107) mmol/L Carbon Dioxide 15 L (22-30) mmol/L BUN 31 H (9-20) mg/dL Creatinine 1.90 H (0.66-1.25) mg/dL Glucose 461 H (74-99) mg/dL Calcium 8.0 L (8.4-10.2) mg/dL Total Bilirubin 0.9 (0.2-1.3) mg/dL AST 86 H (17-59) U/L ALT 45 (4-49) U/L Alkaline Phosphatase 549 H (38-126) U/L Total Protein 6.3 (6.3-8.2) g/dL Albumin 2.3 L (3.5-5.0) g/dL
[2020-02-02] MEDS: metroNIDAZOLE 500 MG TAB PO SCH ×2 (18:56→23:55)
[2020-02-02] MEDS: INSULN ASP PRT/INSULIN ASPART 100 UNIT/ML 10 ML VIAL SQ SCH (19:04)
[2020-02-02 20:25] LABS: Glucose,Whole Blood 397 mg/dL (75-99)
[2020-02-02] MEDS: HEPARIN SODIUM,PORCINE 5,000 UNIT/ML 1 ML VIAL SQ SCH (20:53)
[2020-02-02] MEDS: FAMOTIDINE 20 MG TAB PO SCH (20:53)
--- NOTE | 2020-02-02 22:08 | HP ---
HISTORY AND PHYSICAL DATE OF SERVICE: 02/02/2020 CHIEF COMPLAINT: Bilateral leg wounds and blisters. HISTORY OF PRESENT ILLNESS: This 49-year-old gentleman with a past medical history of multiple medical problems, including diabetes mellitus, CHF, history of MRSA, being followed by Dr. Edson Urias in the outpatient setting, was recently admitted with bilateral leg cellulitis and heel ulcers. Dr. Hernández performed debridement. Subsequently the patient had a PICC line inserted and was discharged with IV antibiotics. Possible ECF rehab was recommended to the patient at this time but the patient was not willing. The patient went home and apparently he fell and was lying on the floor for 18 hours. The patient developed increasing cellulitis, some blisters and pain and difficulty in walking. The patient was taken back to [facility] and admitted for evaluation. Sugars are more than 500. There is no history of any fever or rigors or chills. No history of headache, loss of consciousness, seizures. The most recent culture showed multiple organisms, including anaerobic organisms, Morganella, beta-hemolytics, diphtheroids, alpha hemolytics and streptococci, also. PAST MEDICAL HISTORY: History of recent left heel ulcer debridement, diabetes mellitus, type 2, CHF, MRSA. HOME MEDICATIONS: 1. Tylenol 650 q.8 p.r.n. 2. Flagyl 500 mg q.8. 3. Multivitamins 1 p.o. daily. 4. NovoLog 35 at supper and 50 with breakfast. 5. Pepcid 20 mg daily. 6. Aspirin 81 mg daily. ALLERGIES: PENICILLIN and SULFA. FAMILY HISTORY: No history of heart disease or strokes in the family. SOCIAL HISTORY: No history of smoking. No history of alcohol intake. REVIEW OF SYSTEMS: ENT: No diminished hearing. No diminished vision. CARDIOVASCULAR SYSTEM: No angina, palpitations. RESPIRATORY SYSTEM: No cough, hemoptysis. GI: No nausea, vomiting. : No dysuria or retention. NERVOUS SYSTEM: As mentioned earlier. ALLERGY/IMMUNOLOGY: No asthma, hayfever. MUSCULOSKELETAL: As mentioned earlier. HEMATOLOGY/ONCOLOGY: No history of anemia. ENDOCRINE: Diabetes. CONSTITUTIONAL: As mentioned earlier. DERMATOLOGY: As mentioned earlier. RHEUMATOLOGY: Negative. PSYCHIATRY: As mentioned earlier. CONSTITUTIONAL: As mentioned earlier. PHYSICAL EXAMINATION: Patient is alert and oriented x3. Pulse is 87, blood pressure 154/84, respiration 18, temperature 97.9, pulse ox 97% on room air. HEENT: Conjunctivae normal. Oral mucosa moist. NECK: No jugular venous distention. No carotid bruit. No lymph node enlargement. CARDIOVASCULAR SYSTEM: S1, S2 muffled. No S3. No S4. RESPIRATORY SYSTEM: Breath sounds diminished at the bases. No rhonchi. No crackles. ABDOMEN: Soft, obese, non-tender. No mass palpable. LEGS: Bilateral leg cellulitis and edema and swelling present. NERVOUS SYSTEM: Higher functions as mentioned earlier. Moves all 4 limbs. No focal motor or sensory deficit. LYMPHATICS: No lymph node palpable in neck, axillae or groin. SKIN: Extensive ulcerations and left heel decubitus ulcer. JOINTS: No active deforming arthropathy. LAB: WBC 6.2, hemoglobin is 8.2, sodium 134, and CO2 is 15. Lactic acid 5.4. ASSESSMENT: 1. Acute bilateral leg cellulitis with sepsis with failure of outpatient treatment. 2. Left heel diabetic ulcer, status post debridement; possible osteomyelitis. 3. Anemia, macrocytic. 4. Diabetes mellitus, type 2, uncontrolled with hyperglycemia. 5. Increased creatinine with chronic kidney disease, stage 3. 6. Hyponatremia. 7. Elevated alkaline phosphatase. 8. Elevated CRP. 9. Hypoalbuminemia with mild protein-calorie malnutrition. 10.History of diabetes mellitus, type 2. 11.Sleep apnea. 12.History of congestive heart failure; ejection fraction unknown. 13.History of peripheral neuropathy. 14.History of methicillin-resistant Staphylococcus aeruginosa. 15.History of degenerative joint disease. 16.FULL CODE. RECOMMENDATIONS AND DISCUSSION: In this 49-year-old gentleman who presented with multiple complex medical issues, we will monitor the patient closely, continue the current medications, continue with symptomatic treatment. I would recommend monitoring blood sugars closely. I recommend serum ketones, and if they are positive, follow the DKA protocol. Otherwise, broad- spectrum IV antibiotics. Resume the home medications. Infectious disease evaluation. PT/OT evaluation. Possible ECF rehab. PICC line care. Daptomycin has been initiated. Repeat cultures. Infectious disease and vascular surgery consultations. Prognosis guarded because of multiple complex medical issues. Further recommendations to follow. A copy of this dictation is being forwarded to Dr. Urias, who is the primary physician. Importance of compliance was also stressed with the patient. MMODL / IJN: [id number] /
--- NOTE | 2020-02-02 22:40 | P.CONS ---
History of Present Illness - Reason for Consult Consult date: 02/02/20 Bilateral lower extremity cellulitis and left heel osteomyelitis Requesting physician: Juan Diego De La Torre - Chief Complaint Bilateral leg swelling and redness x days - History of Present Illness Patient is a 49-year-old male who was recently admitted at [facility] with left heel nonhealing wound with maggot infestation , patient did have extensive surgical debridement with a wound extending down to the base of the calcaneus patient local wound culture positive for Morganella ,strep and anaerobes patient did get a PICC line and was advised 2 g every 24 hours with oral Flagyl patient was advised to go to a long-term however he refused an and going home patient mentioned her while at home he did have a follow-up and was unable to get up and light on the floor for a while, patient is also complaining of increased swelling to bilateral lower extremity with blisters and some superficial ulceration and unable to take care of himself with these symptoms the patient was brought back to the hospital are elderly and the patient was if did have a normal white count and crit was up to 1.90 and have elevated lactic acid patient did received a dose of cefepime in the subsequent has been able to the hospital and started on daptomycin and Flagyl infectious disease was consulted for the management of anybody therapy, patient is complaining of increasing swelling of both lower extremity along with some tissue is still aching pain at time shows 5-6 out of 10 and has coming up into the left heel areadid have significant slough tissue the base of the left heel but no foul-smelling drainage Review of Systems Positive point has been mentioned in the HPI rest of the systems are negative Past Medical History Past Medical History: Diabetes Mellitus, Sleep Apnea/CPAP/BIPAP Additional Past Medical History / Comment(s): CHF, neuropathy History of Any Multi-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:: 2004 MDRO Source:: Rt shoulder Past Surgical History: Orthopedic Surgery Additional Past Surgical History / Comment(s): carpal tunnel in right wrist, MRSA infection drain in right shoulder Past Anesthesia/Blood Transfusion Reactions: No Reported Reaction Past Psychological History: No Psychological Hx Reported Smoking Status: Never smoker Past Alcohol Use History: None Reported, Unable to Obtain Past Drug Use History: None Reported - Past Family History Father Family Medical History: Cancer Sister(s) Family Medical History: Cancer Additional Family Medical History / Comment(s): cervical cancer Brother(s) Family Medical History: Liver Disease Additional Family Medical History / Comment(s): from liver cirrhos is. another brother has throat cancer Medications and Allergies Home Medications Medication Instructions Recorded Confirmed Type Aspirin [Ch[place]fee Aspirin EC] 81 mg PO DAILY 01/24/20 02/02/20 History Multivitamins, Thera [Multivitamin 1 tab PO DAILY 01/24/20 02/02/20 History (formulary)] Famotidine [Pepcid] 20 mg PO Q12HR 30 Days #60 tab 01/30/20 02/02/20 Rx Insuln Asp Prt/Insulin Aspart 35 unit SQ AC-SUPPER 30 Days #3 01/30/20 02/02/20 Rx [NovoLOG MIX 70-30 VIAL] vial Insuln Asp Prt/Insulin Aspart 50 unit SQ AC-BRKFST 30 Days #3 01/30/20 02/02/20 Rx [NovoLOG MIX 70-30 VIAL] vial metroNIDAZOLE [Flagyl] 500 mg PO Q8HR #90 tab 01/30/20 02/02/20 Rx Acetaminophen [Tylenol] 650 mg PO Q8H PRN 02/02/20 02/02/20 History Allergies Allergy/AdvReac Type Severity Reaction Status Date / Time Penicillins Allergy Swelling Verified 02/02/20 12:35 Sulfa (Sulfonamide Allergy Unknown Verified 02/02/20 12:35 Antibiotics) Physical Exam Vitals: Vital Signs Temp Pulse Pulse Resp BP BP Pulse Ox 02/02/20 15:00 98.3 F 91 19 135/83 98 02/02/20 14:46 97.9 F 87 18 154/84 97 02/02/20 14:04 88 18 152/93 97 02/02/20 11:42 97.7 F 91 18 139/79 98 Intake and Output 02/02/20 02/02/20 02/02/20 06:59 14:59 22:59 Other: # Voids 1 # Bowel Movements 1 Weight 117.934 kg 117.934 kg GENERAL DESCRIPTION: Middle-aged male lying in bed, no distress. No tachypnea or accessory muscle of respiration use. HEENT: Shows Pallor , no scleral icterus. Oral mucous membrane is dry. No pharyngeal erythema or thrush NECK: Trachea central, no thyromegaly. LUNGS: Unlabored breathing. Decreased breath sound at the base. No wheeze or crackle. HEART: S1, S2, regular rate and rhythm. No loud murmur ABDOMEN: Soft, no tenderness , guarding or rigidity, no organomegaly EXTREMITIES: Diffuse swelling of bilateral lower extremity with redness and blister formation deep wound to the left heel stage IV with significant slough tissue no foul-smelling drainage SKIN: No rash, no masses palpable. NEUROLOGICAL: The patient is awake, alert, oriented x3, mood and affect normal. Results CBC & Chem 7: 02/02/20 12:39 02/02/20 12:39 Labs: Abnormal Lab Results - Last 24 Hours (Table) 02/02/20 02/02/20 02/02/20 Range/Units 12:39 12:39 12:39 RBC 2.71 L (4.30-5.90) m/uL Hgb 8.2 L (13.0-17.5) gm/dL Hct 28.3 L (39.0-53.0) % MCV 104.4 H (80.0-100.0) fL MCHC 29.1 L (31.0-37.0) g/dL PT 13.2 H (9.0-12.0) sec INR 1.3 H (<1.2) APTT 30.2 H (22.0-30.0) sec Sodium 134 L (137-145) mmol/L Carbon Dioxide 15 L (22-30) mmol/L BUN 31 H (9-20) mg/dL Creatinine 1.90 H (0.66-1.25) mg/dL Glucose 461 H (74-99) mg/dL POC Glucose (mg/dL) (75-99) mg/dL Plasma Lactic Acid Guille (0.7-2.0) mmol/L Calcium 8.0 L (8.4-10.2) mg/dL AST 86 H (17-59) U/L Alkaline Phosphatase 549 H (38-126) U/L C-Reactive Protein 71.9 H (<10.0) mg/L Albumin 2.3 L (3.5-5.0) g/dL 02/02/20 02/02/20 02/02/20 Range/Units 13:01 13:52 15:42 RBC (4.30-5.90) m/uL Hgb (13.0-17.5) gm/dL Hct (39.0-53.0) % MCV (80.0-100.0) fL MCHC (31.0-37.0) g/dL PT (9.0-12.0) sec INR (<1.2) APTT (22.0-30.0) sec Sodium (137-145) mmol/L Carbon Dioxide (22-30) mmol/L BUN (9-20) mg/dL Creatinine (0.66-1.25) mg/dL Glucose (74-99) mg/dL POC Glucose (mg/dL) 472 H (75-99) mg/dL Plasma Lactic Acid Guille 5.4 H* 4.0 H* (0.7-2.0) mmol/L Calcium (8.4-10.2) mg/dL AST (17-59) U/L Alkaline Phosphatase (38-126) U/L C-Reactive Protein (<10.0) mg/L Albumin (3.5-5.0) g/dL 02/02/20 02/02/20 02/02/20 Range/Units 16:41 18:12 20:19 RBC (4.30-5.90) m/uL Hgb (13.0-17.5) gm/dL Hct (39.0-53.0) % MCV (80.0-100.0) fL MCHC (31.0-37.0) g/dL PT (9.0-12.0) sec INR (<1.2) APTT (22.0-30.0) sec Sodium (137-145) mmol/L Carbon Dioxide (22-30) mmol/L BUN (9-20) mg/dL Creatinine (0.66-1.25) mg/dL Glucose (74-99) mg/dL POC Glucose (mg/dL) 384 H 397 H (75-99) mg/dL Plasma Lactic Acid Guille 2.6 H* (0.7-2.0) mmol/L Calcium (8.4-10.2) mg/dL AST (17-59) U/L Alkaline Phosphatase (38-126) U/L C-Reactive Protein (<10.0) mg/L Albumin (3.5-5.0) g/dL Assessment and Plan Assessment: 1- patient with a recent admission to this hospital with left heel wound and maggot infestation in this patient is status post Extensive debridement with a day for the left heel culture were positive for Morganella and strep and anaerobes now presented to hospital with significant worsening of his lower extremity with swelling this information and evidence of lower extremity cellulitis. Need to cover for both gram-positive as well as gram-negative pathogen with worsening dorsum cellulitis left leg osteomyelitis 2- Patient with multiple antibiotic ALLERGIES that would limit the number of antibiotic safe to use (1) Allergy to multiple antibiotics Current Visit: Yes Status: Acute Code(s): Z88.1 - ALLERGY STATUS TO OTHER ANTIBIOTIC AGENTS STATUS SNOMED Code(s): 308207384 (2) Acute osteomyelitis of left calcaneus Current Visit: Yes Status: Acute Code(s): M86.172 - OTHER ACUTE OSTEOMYELITIS, LEFT ANKLE AND FOOT SNOMED Code(s): 235707949 (3) Bilateral cellulitis of lower leg Current Visit: Yes Status: Acute Code(s): L03.116 - CELLULITIS OF LEFT LOWER LIMB; L03.115 - CELLULITIS OF RIGHT LOWER LIMB SNOMED Code(s): 213435846 Plan: 1- cefepime 2 g every 12 hours and oral Flagyl 500 by mouth every 8 hours 2- daptomycin at 4 mg per KG daily 3- dry Aquacel silver dressing to the wound bilateral legs followed by Nils wrap from just above the toe to below the knee 4- vascular surgery evaluation for further debridement of the left heel wound We will follow on clinical condition and cultures to further adjust medication i f needed Thank you for this consultation will follow this patient with you Time with Patient: Greater than 30
[2020-02-03 06:06] LABS: Glucose,Whole Blood 176 mg/dL (75-99)
[2020-02-03 06:12] LABS: Basophils # (A) 0.1 k/uL (0-0.2); Basophils % (A) 1 %; Eosinophils # (A) 0.3 k/uL (0-0.7); Eosinophils % (A) 5 %; HCT 27.3 % (39.0-53.0); HGB 7.8 gm/dL (13.0-17.5); Hypochromasia Marked; Lymphocytes # (A) 1.2 k/uL (1.0-4.8); Lymphocytes % (A) 18 %; MCH 29.5 pg (25.0-35.0); MCHC 28.7 g/dL (31.0-37.0); Macrocytosis Slight; Monocytes # (A) 0.3 k/uL (0-1.0); Monocytes % (A) 4 %; Neutrophils # (A) 4.8 k/uL (1.3-7.7); Neutrophils % (A) 70 %; Platelet Count 221 k/uL (150-450); RBC 2.65 m/uL (4.30-5.90); RDW 15.1 % (11.5-15.5); WBC 6.8 k/uL (3.8-10.6)
[2020-02-03 06:19] LABS: Calcium 7.4 mg/dL (8.4-10.2); Potassium 3.6 mmol/L (3.5-5.1)
[2020-02-03] MEDS: SODIUM CHLORIDE 0.9% 1,000 ML IV SCH ×3 (06:21→19:55)
[2020-02-03] MEDS: PANTOPRAZOLE 40 MG TABLET PO SCH (07:01)
[2020-02-03 08:17] LABS: Glucose,Whole Blood 178 mg/dL (75-99)
[2020-02-03] MEDS: metroNIDAZOLE 500 MG TAB PO SCH ×2 (08:17→17:34)
[2020-02-03] MEDS: CEFEPIME 2 GM in SODIUM CHLORIDE 0.9% 100 ML IVPB SCH ×2 (08:17→19:54)
[2020-02-03] MEDS: HEPARIN SODIUM,PORCINE 5,000 UNIT/ML 1 ML VIAL SQ SCH ×2 (08:18→08:19)
[2020-02-03] MEDS: FAMOTIDINE 20 MG TAB PO SCH (08:18)
[2020-02-03] MEDS: THIAMINE 100 MG TAB PO SCH (08:18)
[2020-02-03] MEDS: INSULIN ASPART (NovoLOG) 100 UNIT/ML VIAL SQ SCH ×4 (08:18→20:38)
[2020-02-03] MEDS: MULTIVITAMINS, THERA 1 EACH TAB PO SCH (08:18)
[2020-02-03] MEDS: FOLIC ACID 1 MG TAB PO SCH (08:18)
[2020-02-03] MEDS: ASPIRIN 81 MG PO SCH (08:18)
[2020-02-03] MEDS: INSULN ASP PRT/INSULIN ASPART 100 UNIT/ML 10 ML VIAL SQ SCH ×2 (08:19→17:34)
--- NOTE | 2020-02-03 09:38 | CDI ---
Documentation Clarification Form Date: 02/03/2020 08:46:00 AM From: Kathy Durbin RN CCDS Admit Date: 02/02/2020 01:56:00 PM Patient Name: Brown Lopez Visit Number: [id number] Discharge Date: ATTENTION: The Clinical Documentation Specialists (CDI) and [facility] Coding Staff appreciate your assistance in clarifying documentation. Please respond to the clarification below the line at the bottom and electronically sign. The CDI & [facility] Coding staff will review the response and follow-up if needed. Please note: Queries are made part of the Legal Health Record. If you have any questions, please contact the author of this message via ITS. Dr. Juan Diego De La Torre The patient has type 2 diabetes, as indicated on HP 02/01. History/Risk Factors: 49-year-old gentleman who presents to the ED with worsening wounds to bilateral legs. Recent discharge from hospital on home IV antibiotics and wound care. The patient presents with blistering and increased redness to bilateral legs, fevers and chills. Medical Hx: recent left heel ulcer debridement, DM type 2, CHF, CKD 3 and MRSA Clinical Indicators: 02/01 VSS: B/P: 139/79; HR: 91; Temp: 97.7 Oral; RR: 18; SpO2: 98% room air 02/01 H&P Physical Assessment: Leg assessment: Bilateral leg cellulitis and edema and swelling present. Skin assessment: Extensive ulcerations and left heel decubitus ulcer. Treatment: 02/01 Novolog Mix 70/30 35-unit AC supper; 02/02 Novolog Mix 70/30 50-unit AC Breakfast; Novolog ACHS; Cefepime Ivpb Q 12 H; Daptomycin IVPB Q 24 H; Please document any body system complications or specific manifestations related to the diabetes: Bilateral Leg Cellulitis Associated with Diabetes Bilateral Leg Cellulitis Not Associated with Diabetes Other Condition Unable to Determine (Last Revision: April 2017) Bilateral Leg Cellulitis Associated with Diabetes MTDD
--- NOTE | 2020-02-03 11:17 | P.CONS ---
History of Present Illness - Chief Complaint Medical debility - History of Present Illness I had the opportunity to see patient for inpatient rehab consultation with regard to medical debility. He was admitted to [facility] February 01 with left heel wound, cellulitis, osteomyelitis. Left foot x-ray done. Seen in consultation by Dr. De La Torre for medical, Dr. Ohara for infectious disease and Dr. Hernández for the cellulitis and vascular. PT reports two-person maximal assistance for bed mobility and poor endurance. OT prescribed. Previous functional history as elicited from patient: 49-year-old right-handed white male is single lives and one for home with mom and younger sister. Younger sister does the cooking and driving. Patient unemployed. Describes independent with own laundry, sitdown shower and gait with 4 wheeled walker which she has been using since December. PMD Dr. Shannon Urias. Denies tobacco or alcohol. Family history father with cancer. Review of Systems Review of systems: ENT: Denies sneezes or discharge. Eyes: Denies discharge or photophobia. Cardiac: Denies chest pain or palpitation. Pulmonary: Denies cough or shortness of breath. Gastrointestinal: Denies nausea, emesis, constipation, diarrhea. Genitourinary: Denies discharge or frequency. Musculoskeletal: Lower extremity cellulitis and pain. Neurologic: Weakness especially lowers. Endocrine: Denies shakes or sweats. Oncology: Denies cancers. Dermatologic: Denies rash, itching, pruritus. ALLERGY/immunology: Denies sneezes, rashes. Past Medical History Past Medical History: Diabetes Mellitus, Sleep Apnea/CPAP/BIPAP Additional Past Medical History / Comment(s): CHF, neuropathy History of Any Multi-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:: 2004 MDRO Source:: Rt shoulder Past Surgical History: Orthopedic Surgery Additional Past Surgical History / Comment(s): carpal tunnel in right wrist, MRSA infection drain in right shoulder Past Anesthesia/Blood Transfusion Reactions: No Reported Reaction Past Psychological History: No Psychological Hx Reported Smoking Status: Never smoker Past Alcohol Use History: None Reported, Unable to Obtain Past Drug Use History: None Reported - Past Family History Father Family Medical History: Cancer Sister(s) Family Medical History: Cancer Additional Family Medical History / Comment(s): cervical cancer Brother(s) Family Medical History: Liver Disease Additional Family Medical History / Comment(s): from liver cirrhosis. another brother has throat cancer Medications and Allergies Home Medications Medication Instructions Recorded Confirmed Type Aspirin [Hart Aspirin EC] 81 mg PO DAILY 01/24/20 02/02/20 History Multivitamins, Thera [Multivitamin 1 tab PO DAILY 01/24/20 02/02/20 History (formulary)] Famotidine [Pepcid] 20 mg PO Q12HR 30 Days #60 tab 01/30/20 02/02/20 Rx Insuln Asp Prt/Insulin Aspart 35 unit SQ AC-SUPPER 30 Days #3 01/30/20 02/02/20 Rx [NovoLOG MIX 70-30 VIAL] vial Insuln Asp Prt/Insulin Aspart 50 unit SQ AC-BRKFST 30 Days #3 01/30/20 02/02/20 Rx [NovoLOG MIX 70-30 VIAL] vial metroNIDAZOLE [Flagyl] 500 mg PO Q8HR #90 tab 01/30/20 02/02/20 Rx Acetaminophen [Tylenol] 650 mg PO Q8H PRN 02/02/20 02/02/20 History Allergies Allergy/AdvReac Type Severity Reaction Status Date / Time Penicillins Allergy Swelling Verified 02/02/20 12:35 Sulfa (Sulfonamide Allergy Unknown Verified 02/02/20 12:35 Antibiotics) Physical Exam Vitals: Vital Signs Temp Pulse Pulse Resp BP BP Pulse Ox 02/03/20 08:00 97.7 F 86 18 131/78 98 02/03/20 03:47 98.1 F 87 18 121/76 95 02/03/20 00:17 98.2 F 90 15 120/67 94 L 02/02/20 20:35 97.9 F 79 17 133/66 98 02/02/20 15:00 98.3 F 91 19 135/83 98 02/02/20 14:46 97.9 F 87 18 154/84 97 02/02/20 14:04 88 18 152/93 97 02/02/20 11:42 97.7 F 91 18 139/79 98 Intake and Output 02/02/20 02/03/20 02/03/20 22:59 06:59 14:59 Intake Total 240 Balance 240 Intake: Oral 240 Other: Voiding Method Diaper # Voids 1 1 1 # Bowel Movements 1 1 1 Weight 117.934 kg 134 kg Skin: Dressings lower legs and feet. General: Obese build and comfortable appearance. Head: Normocephalic, atraumatic. Eyes: Symmetric. Pupils equal round. Ears: Symmetric. Hearing within normal limits. Mouth: Clear. Neck: Supple. Carotid without bruit. Cardiac: Regular rate and rhythm. Lungs: Clear anteriorly and posteriorly. Abdomen: Soft active nontender. Extremities: Normal tone. Neurological: Mental status: Alert, cooperative, pleasant. Cranial nerves: Symmetric facial tone and trapezius. Motor: Can actively elevate arms off of bed. Legs are poor. Sensation: Intact. DTRs: Symmetric and equal throughout. Mobility: Requires physical assist for bed mobility. Results CBC & Chem 7: 02/03/20 05:36 02/03/20 05:36 Labs: Abnormal Lab Results - Last 24 Hours (Table) 02/02/20 02/02/20 02/02/20 Range/Units 12:39 12:39 12:39 RBC 2.71 L (4.30-5.90) m/uL Hgb 8.2 L (13.0-17.5) gm/dL Hct 28.3 L (39.0-53.0) % MCV 104.4 H (80.0-100.0) fL MCHC 29.1 L (31.0-37.0) g/dL PT 13.2 H (9.0-12.0) sec INR 1.3 H (<1.2) APTT 30.2 H (22.0-30.0) sec Sodium 134 L (137-145) mmol/L Chloride (98-107) mmol/L Carbon Dioxide 15 L (22-30) mmol/L BUN 31 H (9-20) mg/dL Creatinine 1.90 H (0.66-1.25) mg/dL Glucose 461 H (74-99) mg/dL POC Glucose (mg/dL) (75-99) mg/dL Plasma Lactic Acid Guille (0.7-2.0) mmol/L Calcium 8.0 L (8.4-10.2) mg/dL AST 86 H (17-59) U/L Alkaline Phosphatase 549 H (38-126) U/L C-Reactive Protein 71.9 H (<10.0) mg/L Albumin 2.3 L (3.5-5.0) g/dL 02/02/20 02/02/20 02/02/20 Range/Units 13:01 13:52 15:42 RBC (4.30-5.90) m/uL Hgb (13.0-17.5) gm/dL Hct (39.0-53.0) % MCV (80.0-100.0) fL MCHC (31.0-37.0) g/dL PT (9.0-12.0) sec INR (<1.2) APTT (22.0-30.0) sec Sodium (137-145) mmol/L Chloride (98-107) mmol/L Carbon Dioxide (22-30) mmol/L BUN (9-20) mg/dL Creatinine (0.66-1.25) mg/dL Glucose (74-99) mg/dL POC Glucose (mg/dL) 472 H (75-99) mg/dL Plasma Lactic Acid Guille 5.4 H* 4.0 H* (0.7-2.0) mmol/L Calcium (8.4-10.2) mg/dL AST (17-59) U/L Alkaline Phosphatase (38-126) U/L C-Reactive Protein (<10.0) mg/L Albumin (3.5-5.0) g/dL 02/02/20 02/02/20 02/02/20 Range/Units 16:41 18:12 20:19 RBC (4.30-5.90) m/uL Hgb (13.0-17.5) gm/dL Hct (39.0-53.0) % MCV (80.0-100.0) fL MCHC (31.0-37.0) g/dL PT (9.0-12.0) sec INR (<1.2) APTT (22.0-30.0) sec Sodium (137-145) mmol/L Chloride (98-107) mmol/L Carbon Dioxide (22-30) mmol/L BUN (9-20) mg/dL Creatinine (0.66-1.25) mg/dL Glucose (74-99) mg/dL POC Glucose (mg/dL) 384 H 397 H (75-99) mg/dL Plasma Lactic Acid Guille 2.6 H* (0.7-2.0) mmol/L Calcium (8.4-10.2) mg/dL AST (17-59) U/L Alkaline Phosphatase (38-126) U/L C-Reactive Protein (<10.0) mg/L Albumin (3.5-5.0) g/dL 02/02/20 02/03/20 02/03/20 Range/Units 21:04 05:36 05:36 RBC 2.65 L (4.30-5.90) m/uL Hgb 7.8 L (13.0-17.5) gm/dL Hct 27.3 L (39.0-53.0) % MCV 103.0 H (80.0-100.0) fL MCHC 28.7 L (31.0-37.0) g/dL PT (9.0-12.0) sec INR (<1.2) APTT (22.0-30.0) sec Sodium (137-145) mmol/L Chloride 112 H (98-107) mmol/L Carbon Dioxide 19 L (22-30) mmol/L BUN 30 H (9-20) mg/dL Creatinine 1.79 H (0.66-1.25) mg/dL Glucose 160 H (74-99) mg/dL POC Glucose (mg/dL) (75-99) mg/dL Plasma Lactic Acid Guille 3.2 H* (0.7-2.0) mmol/L Calcium 7.4 L (8.4-10.2) mg/dL AST (17-59) U/L Alkaline Phosphatase (38-126) U/L C-Reactive Protein (<10.0) mg/L Albumin (3.5-5.0) g/dL 02/03/20 02/03/20 Range/Units 06:04 08:15 RBC (4.30-5.90) m/uL Hgb (13.0-17.5) gm/dL Hct (39.0-53.0) % MCV (80.0-100.0) fL MCHC (31.0-37.0) g/dL PT (9.0-12.0) sec INR (<1.2) APTT (22.0-30.0) sec Sodium (137-145) mmol/L Chloride (98-107) mmol/L Carbon Dioxide (22-30) mmol/L BUN (9-20) mg/dL Creatinine (0.66-1.25) mg/dL Glucose (74-99) mg/dL POC Glucose (mg/dL) 176 H 178 H (75-99) mg/dL Plasma Lactic Acid Guille (0.7-2.0) mmol/L Calcium (8.4-10.2) mg/dL AST (17-59) U/L Alkaline Phosphatase (38-126) U/L C-Reactive Protein (<10.0) mg/L Albumin (3.5-5.0) g/dL Microbiology - Last 24 Hours (Table) 02/02/20 16:45 Gram Stain - Preliminary Leg - Left Wound Culture - Preliminary 02/02/20 20:53 Anaerobic Culture - Preliminary Leg - Left 02/02/20 16:35 Wound Culture - Preliminary Leg - Right Assessment and Plan (1) Acute osteomyelitis of left calcaneus Current Visit: Yes Status: Acute Code(s): M86.172 - OTHER ACUTE OSTEOMYELITIS, LEFT ANKLE AND FOOT SNOMED Code(s): 760761347 (2) Bilateral cellulitis of lower leg Current Visit: Yes Status: Acute Code(s): L03.116 - CELLULITIS OF LEFT LOWER LIMB; L03.115 - CELLULITIS OF RIGHT LOWER LIMB SNOMED Code(s): 286170645 (3) Sepsis Current Visit: Yes Status: Acute Code(s): A41.9 - SEPSIS, UNSPECIFIED ORGANISM SNOMED Code(s): 60292866 Plan: Impression: 1. Medical debility. 2. Lower extremity cellulitis bilateral as well as left heel ulcer with osteomyelitis and sepsis. 3. Hyperglycemia with diabetes. 4. Sleep apnea. Comments and plan: At this time PT is initiated and patient capable really only of bedside activity. Not currently up to fall inpatient rehab. Will require 24/7 care multiple persons.
[2020-02-03 11:41] LABS: Glucose,Whole Blood 150 mg/dL (75-99)
--- NOTE | 2020-02-03 13:28 | NM ---
EXAMINATION TYPE: NM bone 3 phase DATE OF EXAM: 02/03/2020 COMPARISON: NONE HISTORY: lt heel osteo Triple phase bone scintigraphy was performed following the injection of 26.3 mCi Tc 99m MDP. Immedia te images and 5 hours post injection images acquired. FINDINGS: All 3 phases of the study demonstrate increased radiotracer accumulation about the left os calcis fel t to reflect underlying osteomyelitis. Mild degenerative uptake is seen about the mid feet. IMPRESSION: Findings are highly suspicious for osteomyelitis of the left os calcis.
[2020-02-03] MEDS: DAPTOmycin 500 MG in SODIUM CHLORIDE 0.9% 50 ML IVPB SCH (13:36)
--- NOTE | 2020-02-03 16:19 | PN ---
PROGRESS NOTE DATE OF SERVICE: 02/03/2020 REASON FOR FOLLOWUP: Left heel osteomyelitis with bilateral lower extremity cellulitis. INTERVAL HISTORY: The patient is currently afebrile. The patient is breathing comfortably. Denies having any chest pain or shortness of breath or cough. No nausea, no vomiting. Overall pain and discomfort to the leg has slightly decreased. PHYSICAL EXAMINATION: Blood pressure 127/68 with a pulse of 81, temperature 98. He is 97% on room air. General description is a middle-aged male lying in bed in no distress. RESPIRATORY SYSTEM: Unlabored breathing. Clear to auscultation anteriorly. HEART: S1, S2. Regular rate and rhythm. ABDOMEN: Soft. No tenderness. Legs are currently wrapped up. No obvious drainage on the dressing. LABS: Hemoglobin is 7.1, white count 6.8. BUN of 30, creatinine 1.09. Blood and urine cultures still pending. Blood culture negative. DIAGNOSTIC IMPRESSION AND PLAN: Patient admitted to hospital with bilateral lower extremity cellulitis in this patient who has been diagnosed with left heel osteomyelitis with diabetic foot infection. Patient is currently covered with cefepime and Flagyl; to continue while waiting for the culture to finalize. Continue with supportive care. MMODL / IJN: [id number] /
[2020-02-03 16:38] LABS: Glucose,Whole Blood 126 mg/dL (75-99)
--- NOTE | 2020-02-03 16:40 | PN ---
PROGRESS NOTE DATE OF SERVICE: 02/03/2020 This 49-year-old gentleman who was admitted with acute bilateral leg cellulitis and failure of outpatient treatment is being closely monitored at this time. The patient has features of acute osteomyelitis in the left calcaneal area on the bone scan. Creatinine is elevated at 1.79. The patient has significant history of noncompliance. PT/OT evaluating the patient as well and inpatient rehab is also being considered. Plasma lactic acid indicating sepsis, which 1.9 at this time. Acetone was negative. Past medical history reviewed. REVIEW OF SYSTEMS: CARDIOVASCULAR SYSTEM: No angina, palpitations. RESPIRATORY SYSTEM: As mentioned earlier. GI: As mentioned earlier. :mentioned NERVOUS SYSTEM: No numbness, weakness. CURRENT MEDICATIONS: Reviewed. They include: 1. Tylenol. 2. [place] 5 mg. 3. Xanax. 4. Aspirin. 5. Cefepime 2 grams IV b.i.d. 6. Daptomycin. 7. Pepcid. 8. Folic acid. 9. Heparin. 10.NovoLog. 11.Flagyl. 12.Vitamin B1. PHYSICAL EXAMINATION: Patient is alert, oriented x3. The pulse is 81, blood pressure 127/68, respiration 20, temperature 98 degrees, pulse ox 97% on room air. HEENT: Conjunctivae normal. NECK: No jugular venous distention. CARDIOVASCULAR SYSTEM: S1, S2 muffled. RESPIRATORY SYSTEM: Breath sounds diminished at the bases. A few scattered rhonchi and crackles. ABDOMEN: Soft, obese, non-tender. LEGS: Bilateral leg cellulitis and calcaneal ulcer also present. NERVOUS SYSTEM: No focal deficit. LABS: WBC 6.2, hemoglobin 7.8. Creatinine is 1.79. Lactic acid 1.9, alkaline phosphatase 549. C-reactive protein is 71. ASSESSMENT: 1. Acute bilateral leg cellulitis with sepsis with failure of outpatient treatment. 2. Left heel diabetic ulcer, status post debridement, nonhealing, with failure of outpatient treatment and possible osteomyelitis of the left calcaneal bone. 3. Anemia, macrocytic. 4. Diabetes mellitus, type 2, uncontrolled with hyperglycemia. 5. Peripheral neuropathy secondary to diabetes mellitus, type 2. 6. Increased creatinine with chronic kidney disease, stage 3. 7. Hyponatremia. 8. Elevated alkaline phosphatase. 9. Increased CRP. 10.Hypoalbuminemia with mild protein-calorie malnutrition. 11.History of diabetes mellitus, type 2. 12.Sleep apnea. 13.History of congestive heart failure; ejection unknown. 14.History of peripheral neuropathy. 15.History of methicillin-resistant Staphylococcus aeruginosa. 16.History of degenerative joint disease. 17.Obesity with body mass index of 47.7. 18.FULL CODE. RECOMMENDATIONS AND DISCUSSION: In this 49-year-old gentleman who presented with multiple complex medical issues, we will monitor the patient closely, continue the antibiotics. Cefepime has been added. Will await the blood culture reports as well as local culture report. Continue with the wound dressing. Infectious disease and vascular surgery consultations. PT/OT evaluation. Dr. Rodney has talked to the patient. Possible inpatient rehab or ECF rehab. Guarded prognosis because of multiple complex medical issues. Further recommendations to follow. MMODL / IJN: [id number] / MTDD
[2020-02-03 17:40] LABS: Glucose,Whole Blood 130 mg/dL (75-99)
[2020-02-03 20:25] LABS: Glucose,Whole Blood 128 mg/dL (75-99)
[2020-02-04] MEDS: metroNIDAZOLE 500 MG TAB PO SCH ×4 (00:37→23:51)
[2020-02-04 06:11] LABS: Glucose,Whole Blood 104 mg/dL (75-99)
[2020-02-04] MEDS: SODIUM CHLORIDE 0.9% 1,000 ML IV SCH ×3 (06:12→16:57)
[2020-02-04] MEDS: PANTOPRAZOLE 40 MG TABLET PO SCH (06:12)
[2020-02-04] MEDS: INSULIN ASPART (NovoLOG) 100 UNIT/ML VIAL SQ SCH ×4 (06:13→20:41)
[2020-02-04 06:43] LABS: Calcium 7.5 mg/dL (8.4-10.2); HCT 28.5 % (39.0-53.0); HGB 8.3 gm/dL (13.0-17.5); Hypochromasia Marked; MCH 30.2 pg (25.0-35.0); MCV 104.1 fL (80.0-100.0); Macrocytosis Moderate; Mean Platelet Volume 8.9; Platelet Count 228 k/uL (150-450); Potassium 3.8 mmol/L (3.5-5.1); RBC 2.74 m/uL (4.30-5.90); WBC 7.4 k/uL (3.8-10.6)
[2020-02-04 06:58] LABS: Anisocytosis (M) Present; Band Neutrophils % 1 %; Eosinophils # (M) 0.37 k/uL (0-0.7); Hypochromasia (M) Present; Lymphocytes # (M) 1.26 k/uL (1.0-4.8); Monocytes # (M) 0.44 k/uL (0-1.0); Neutrophils % (M) 71 %; Nucleated Red Blood Cells 0 /100 WBC (0-0); Polychromasia Present; Stomatocytes Present; Total Cells Counted 100
[2020-02-04 08:47] LABS: Glucose,Whole Blood 130 mg/dL (75-99)
[2020-02-04] MEDS ORDERED: FAMOTIDINE 20 MG TAB PO SCH (09:00)
[2020-02-04] MEDS: MULTIVITAMINS, THERA 1 EACH TAB PO SCH (09:08)
[2020-02-04] MEDS: ASPIRIN 81 MG PO SCH (09:08)
[2020-02-04] MEDS: INSULN ASP PRT/INSULIN ASPART 100 UNIT/ML 10 ML VIAL SQ SCH ×2 (09:08→17:34)
[2020-02-04] MEDS: THIAMINE 100 MG TAB PO SCH (09:08)
[2020-02-04] MEDS: FOLIC ACID 1 MG TAB PO SCH (09:08)
[2020-02-04] MEDS: CEFEPIME 2 GM in SODIUM CHLORIDE 0.9% 100 ML IVPB SCH ×2 (09:08→20:41)
[2020-02-04] MEDS: HEPARIN SODIUM,PORCINE 5,000 UNIT/ML 1 ML VIAL SQ SCH ×2 (09:11→20:41)
--- NOTE | 2020-02-04 09:44 | CDI ---
Documentation Clarification Form Date: 02/04/2020 09:08:21 AM From: Kathy Durbin RN CCDS Admit Date: 02/02/2020 01:56:00 PM Patient Name: Brown Lopez Visit Number: [id number] Discharge Date: ATTENTION: The Clinical Documentation Specialists (CDI) and [facility] Coding Staff appreciate your assistance in clarifying documentation. Please respond to the clarification below the line at the bottom and electronically sign. The CDI & [facility] Coding staff will review the response and follow-up if needed. Please note: Queries are made part of the Legal Health Record. If you have any questions, please contact the author of this message via ITS. Dr. Juan Diego De La Torre A stage II perineum pressure ulcer POA is documented in the Nursing Wound Assessment 02/01 History/Risk Factors: 49-year-old male was recently discharged on home IV antibiotics for left heel ulcer debridement and cellulitis. The patient fell at home laying on floor for 18 hours has worsening bilateral leg cellulitis. Medical History CHF, DM, MRSA and left heel ulcer. Clinical Indicators: Noted in Nursing assessment 02/01 Integumentary comment redness in mary area Location: Perineum Wound description: Erythema Treatment: None documented Elements for accurate and compliant documentation of an ulcer: *The location/laterality of the ulcer *Etiology (decubitus/pressure, diabetic, PVD) *Stage I-IV, Unstageable, Suspected Deep Tissue Injury (To the deepest stage) *If the ulcer was present at admission (POA) or occurred after admission In your professional opinion, can you please clarify the diagnosis, location, laterality and whether present on admission (POA): Stage 1 Pressure/Decubitus Ulcer (intact skin, non-blanching redness of local area) Stage 2 Pressure/Decubitus Ulcer (Partial thickness, loss of dermis, pink wound bed) Other condition, please specify Unable to determine Please indicate etiology of pressure ulcer (if known). (Last Revision: April 2017) Stage 2 Pressure/Decubitus Ulcer (Partial thickness, loss of dermis, pink wound bed) MTDD
[2020-02-04 11:40] LABS: Glucose,Whole Blood 199 mg/dL (75-99)
[2020-02-04] MEDS: DAPTOmycin 500 MG in SODIUM CHLORIDE 0.9% 50 ML IVPB SCH (12:29)
--- NOTE | 2020-02-04 15:57 | PN ---
PROGRESS NOTE DATE OF SERVICE: 02/04/2020. REASON FOR FOLLOWUP: Left heel osteomyelitis with bilateral lower extremity cellulitis. INTERVAL HISTORY: The patient is currently afebrile. The patient is breathing comfortable. Patient denies having any chest pain, no shortness of breath. No cough. No abdominal pain or nausea. General description is a middle-aged woman in no distress. RESPIRATORY SYSTEM: Clear to auscultation anteriorly. HEART: S1, S2. Regular rate and rhythm. ABDOMEN: Soft, no tenderness. No nausea, no abdominal pain. Left heel is dressed up, no obvious drainage on the dressing. LABS: Hemoglobin 8, white count of 7.4, BUN of 31, creatinine 1.498. IMPRESSION: Wound cultures with culture positive for MRSA and strep. Monitor clinical course closely. MMODL / IJN: [id number] /
[2020-02-04 17:05] LABS: Glucose,Whole Blood 185 mg/dL (75-99)
--- NOTE | 2020-02-04 17:18 | PN ---
PROGRESS NOTE This 49-year-old gentleman with a history of diabetes came last week with an infected wound on the left heel with maggot formation. The patient had extensive debridement of the wound. The patient was seen by Infectious Disease, on IV antibiotic. The patient developed cellulitis of the both lower extremities. The patient has been readmitted. We have been treating with local wound care and Silvadene cream, compression wraps and leg elevation. The patient has osteomyelitis of the calcaneus, under care of Dr. Ohara for IV antibiotic. We will continue with local wound care. MMODL / IJN: [id number] /
[2020-02-04] MEDS: FLUCONAZOLE IN NACL,ISO-OSM 200 MG in SALINE 1 100ML.BAG IVPB SCH (18:44)
[2020-02-04 20:10] LABS: Glucose,Whole Blood 161 mg/dL (75-99)
--- NOTE | 2020-02-04 20:54 | PN ---
PROGRESS NOTE DATE OF SERVICE: 02/04/2020 This 49-year-old gentleman who was admitted with acute bilateral leg cellulitis also had possible osteomyelitis. Patient is being closely monitored. Patient is on broad- spectrum antibiotics. No chest pain. No palpitations. No fever. Past medical history reviewed. REVIEW OF SYSTEMS: CARDIOVASCULAR SYSTEM: No angina, palpitations. RESPIRATORY SYSTEM: As mentioned earlier. GI: As mentioned earlier. : No dysuria or retention. NERVOUS SYSTEM: No numbness, weakness. CURRENT MEDICATIONS: Reviewed. They include Tylenol, [place], Xanax, aspirin, cefepime 2 grams, folic acid, heparin, Flagyl, multivitamins, Narcan, Protonix, Silvadene, vitamin B1. Doses are reviewed. PHYSICAL EXAMINATION: Patient alert and oriented x3. Pulse 87, blood pressure 140/87, respiration 20, temperature 98 degrees, pulse ox 94% on room air. HEENT: Conjunctivae normal. NECK: No jugular venous distention. CARDIOVASCULAR SYSTEM: S1, S2 muffled. RESPIRATORY SYSTEM: Breath sounds diminished at the bases. A few scattered rhonchi and crackles. ABDOMEN: Soft, obese, non-tender. LEGS: Bilateral leg cellulitis and left heel calcaneus osteomyelitis also present. LABS: Creatinine 1.9. Accu-Cheks noted. ASSESSMENT: 1. Acute bilateral leg cellulitis with sepsis with failure of outpatient treatment. 2. Left heel diabetic ulcer, status post debridement, nonhealing, with failure of outpatient treatment with possible osteomyelitis of the left calcaneal bone. 3. Anemia, macrocytic. 4. Diabetes mellitus, type 2, uncontrolled with hyperglycemia. 5. Peripheral neuropathy secondary to diabetes mellitus, type 2. 6. Increased creatinine with chronic kidney disease, stage 3. 7. Hyponatremia. 8. Increased alkaline phosphatase. 9. Increased CRP. 10.Hypoalbuminemia with mild protein-calorie malnutrition. 11.History of diabetes mellitus, type 2. 12.Sleep apnea. 13.History of congestive heart failure, ejection fraction unknown. 14.History of peripheral neuropathy. 15.History of methicillin-resistant Staphylococcus aeruginosa. 16.History of degenerative joint disease. 17.Obesity with body mass index of 47.7. 18.FULL CODE. RECOMMENDATIONS AND DISCUSSION: I recommend to continue current medications, continue with the monitoring, symptomatic treatment. Repeat labs. Continue with the antibiotics. The cultures are showing yeast species. I would add Diflucan to the current regimen. Await final ID of the organisms. Otherwise, monitor creatinine closely. Today's creatinine is 1.98, which is slightly worsened compared to yesterday. We will continue to monitor. Prognosis guarded. Further recommendations to follow. PT/OT evaluation. Possible ECF rehab. MMMARGARITA / NIMESHN: [id number] /
[2020-02-04] MEDS: ACETAMINOPHEN TAB 325 MG TAB PO PRN (23:51)
[2020-02-05] MEDS: SODIUM CHLORIDE 0.9% 1,000 ML IV SCH ×2 (04:50→19:38)
[2020-02-05 07:37] LABS: Glucose,Whole Blood 124 mg/dL (75-99)
[2020-02-05] MEDS: INSULIN ASPART (NovoLOG) 100 UNIT/ML VIAL SQ SCH ×4 (07:39→19:53)
[2020-02-05 08:19] LABS: Calcium 7.6 mg/dL (8.4-10.2); Potassium 4.3 mmol/L (3.5-5.1)
[2020-02-05 08:29] LABS: Basophils # (A) 0.1 k/uL (0-0.2); Basophils % (A) 1 %; Eosinophils # (A) 0.3 k/uL (0-0.7); Eosinophils % (A) 3 %; HCT 29.8 % (39.0-53.0); HGB 8.5 gm/dL (13.0-17.5); Hypochromasia Marked; Lymphocytes # (A) 1.6 k/uL (1.0-4.8); Lymphocytes % (A) 20 %; MCH 30.4 pg (25.0-35.0); MCHC 28.7 g/dL (31.0-37.0); Macrocytosis Moderate; Mean Platelet Volume 9.2; Monocytes # (A) 0.4 k/uL (0-1.0); Monocytes % (A) 5 %; Neutrophils # (A) 5.7 k/uL (1.3-7.7); Neutrophils % (A) 69 %; Platelet Count 238 k/uL (150-450); RBC 2.81 m/uL (4.30-5.90); RDW 15.6 % (11.5-15.5); WBC 8.3 k/uL (3.8-10.6)
[2020-02-05] MEDS: PANTOPRAZOLE 40 MG TABLET PO SCH (08:30)
[2020-02-05] MEDS: INSULN ASP PRT/INSULIN ASPART 100 UNIT/ML 10 ML VIAL SQ SCH ×2 (08:47→17:36)
[2020-02-05] MEDS: metroNIDAZOLE 500 MG TAB PO SCH ×3 (08:50→23:13)
[2020-02-05 08:54] LABS: Anisocytosis (M) Present; Poikilocytosis (M) Present
[2020-02-05 08:55] LABS: Polychromasia Present
[2020-02-05] MEDS: FLUCONAZOLE IN NACL,ISO-OSM 200 MG in SALINE 1 100ML.BAG IVPB SCH (09:29)
[2020-02-05] MEDS: HEPARIN SODIUM,PORCINE 5,000 UNIT/ML 1 ML VIAL SQ SCH ×2 (10:25→19:49)
[2020-02-05] MEDS: MULTIVITAMINS, THERA 1 EACH TAB PO SCH (10:26)
[2020-02-05] MEDS: ASPIRIN 81 MG PO SCH (10:27)
[2020-02-05] MEDS: CEFEPIME 2 GM in SODIUM CHLORIDE 0.9% 100 ML IVPB SCH ×2 (10:41→19:49)
[2020-02-05] MEDS: ACETAMINOPHEN TAB 325 MG TAB PO PRN (11:32)
[2020-02-05 11:49] LABS: Glucose,Whole Blood 125 mg/dL (75-99)
[2020-02-05] MEDS: FOLIC ACID 1 MG TAB PO SCH (12:42)
[2020-02-05] MEDS: THIAMINE 100 MG TAB PO SCH (12:42)
[2020-02-05] MEDS: HYDROcodone/APAP 5-325MG 1 EACH TAB PO PRN (15:57)
[2020-02-05 17:14] LABS: Glucose,Whole Blood 134 mg/dL (75-99)
--- NOTE | 2020-02-05 17:23 | PN ---
PROGRESS NOTE DATE OF SERVICE: 02/05/2020 This is a 49-year-old gentleman who was admitted with acute bilateral leg cellulitis and sepsis and failure of outpatient treatment is being closely monitored. Patient also had osteomyelitis. No chest pain. No palpitations. No fever. Vascular Surgery and Infectious disease are monitoring the patient closely. Vascular Surgery recommended continue the antibiotic and local treatment. No chest pain. No palpitations. No fever. PHYSICAL EXAMINATION: Alert and oriented x3. Pulse is 80, blood pressure 147/92, respirations 16, temperature 97.1, pulse ox 95% on room air. HEENT: Conjunctivae normal. Oral mucosa moist. NECK: No jugular venous distension. CARDIOVASCULAR SYSTEM: S1, S2, muffled. RESPIRATORY: Breath sounds diminished at the bases, a few scattered rhonchi, no crackles. ABDOMEN: Soft, nontender. LEGS: Right leg cellulitis and as well as left heel ulcers. NERVOUS SYSTEM: No focal deficits. LABS: WBC 8.2, hemoglobin is 8.5, sodium 130, potassium 4.1, creatinine is 2.13. ASSESSMENT: 1. Acute bilateral leg cellulitis with sepsis with failure of outpatient treatment. 2. Left heel diabetic ulcer, status post debridement, nonhealing with failure of outpatient treatment with possible osteomyelitis of the left calcaneal bone. 3. Anemia macrocytic. 4. Diann albicans grown from the culture. 5. Diabetes mellitus type 2, uncontrolled with hyperglycemia. 6. Peripheral neuropathy secondary to diabetes mellitus type 2. 7. Increased creatinine with chronic kidney stage 3. 8. Hyponatremia. 9. Increased alkaline phosphatase. 10.Increased CRP. 11.Hypoalbuminemia with mild protein calorie malnutrition. 12.History of diabetes mellitus type 2. 13.Sleep apnea. 14.History of congestive heart failure with ejection fraction unknown. 15.History of peripheral neuropathy. 16.History of MRSA. 17.History of degenerative joint disease. 18.Obesity with body mass index of 47.1. 19.FULL CODE. RECOMMENDATION: Recommend to continue current medications, current management and symptomatic treatment. Otherwise, at this time I recommend continue with current management, currently Diann albicans grown from the culture. Otherwise, closely follow with Infectious Disease, PT, OT evaluation, possible ECF rehab. Guarded prognosis. Further recommendations to follow. MMODL / IJN: [id number] /
[2020-02-05 19:51] LABS: Glucose,Whole Blood 179 mg/dL (75-99)
--- NOTE | 2020-02-05 22:41 | PN ---
PROGRESS NOTE DATE OF SERVICE: 02/05/2020 REASON FOR FOLLOWUP: Left heel osteomyelitis and bilateral lower extremity cellulitis. INTERVAL HISTORY: The patient is currently afebrile, has been breathing comfortably. Denies having any chest pain or shortness of breath or cough. No abdominal pain or worsening pain to the left heel area. PHYSICAL EXAMINATION: Blood pressure 155/89 with a pulse of 81, temperature 98.1. He is 96% on room air. General description is a middle-aged male lying in bed in no distress. RESPIRATORY SYSTEM: Unlabored breathing. Clear to auscultation anteriorly. HEART: S1, S2. Regular rate and rhythm. ABDOMEN: Soft. No tenderness. Legs are currently wrapped up. No obvious drainage on the dressing. LABS: Hemoglobin 8.5, white count 8.3, BUN of 40, creatinine is 2.13. DIAGNOSTIC IMPRESSION AND PLAN: Patient with a left heel stage IV pressure ulcer with underlying osteomyelitis, admitted to hospital with bilateral lower extremity cellulitis. Unable to give penicillin. Patient is covered with cefepime and Flagyl; to continue for a total of 6 weeks and close outpatient followup. MMODL / IJN: [id number] /
[2020-02-06 07:23] LABS: Glucose,Whole Blood 95 mg/dL (75-99)
[2020-02-06] MEDS: PANTOPRAZOLE 40 MG TABLET PO SCH (07:59)
[2020-02-06] MEDS: INSULN ASP PRT/INSULIN ASPART 100 UNIT/ML 10 ML VIAL SQ SCH ×3 (07:59→18:04)
[2020-02-06] MEDS: metroNIDAZOLE 500 MG TAB PO SCH ×3 (07:59→23:50)
[2020-02-06] MEDS: INSULIN ASPART (NovoLOG) 100 UNIT/ML VIAL SQ SCH ×4 (08:01→20:34)
[2020-02-06] MEDS: FLUCONAZOLE IN NACL,ISO-OSM 200 MG in SALINE 1 100ML.BAG IVPB SCH (08:09)
[2020-02-06] MEDS: SODIUM CHLORIDE 0.9% 1,000 ML IV SCH ×2 (08:10→20:42)
[2020-02-06] MEDS: CEFEPIME 2 GM in SODIUM CHLORIDE 0.9% 100 ML IVPB SCH ×2 (09:08→20:41)
[2020-02-06] MEDS: ASPIRIN 81 MG PO SCH (09:39)
[2020-02-06] MEDS: MULTIVITAMINS, THERA 1 EACH TAB PO SCH (09:39)
[2020-02-06] MEDS: HEPARIN SODIUM,PORCINE 5,000 UNIT/ML 1 ML VIAL SQ SCH ×2 (09:41→20:40)
[2020-02-06 11:42] LABS: Glucose,Whole Blood 73 mg/dL (75-99)
[2020-02-06] MEDS: THIAMINE 100 MG TAB PO SCH (13:12)
[2020-02-06] MEDS: FOLIC ACID 1 MG TAB PO SCH (13:12)
[2020-02-06 16:45] LABS: Glucose,Whole Blood 112 mg/dL (75-99)
--- NOTE | 2020-02-06 17:11 | PN ---
PROGRESS NOTE DATE OF SERVICE: 02/06/2020 This is a 49-year-old gentleman who was admitted with acute bilateral leg cellulitis with sepsis and failure of outpatient treatment, is being closely monitored. No chest pain. No palpitations. No fever. PHYSICAL EXAMINATION: Alert and oriented x3. Pulse 78, blood pressure 140/80, respiration 18, temperature 97.2, pulse ox 98% on room air. HEENT: Normal. NECK: No jugular venous distension. CARDIOVASCULAR SYSTEM: S1, S2, muffled. RESPIRATORY: Breath sounds diminished at the bases, a few scattered rhonchi, no crackles. ABDOMEN: Soft, nontender. LEGS: Bilateral ulcers present. NERVOUS SYSTEM: No focal deficits. LABS: Accu-Cheks noted. Cultures are Diann albicans. ASSESSMENT: 1. Acute bilateral leg cellulitis, sepsis with failure of outpatient treatment. 2. Left heel diabetic ulcer, status post debridement, nonhealing ulcer with failure of outpatient treatment, possible osteomyelitis of the left calcaneal bone. 3. Diann albicans from the cultures. 4. Anemia, macrocytic. 5. Diabetes mellitus type 2, uncontrolled with hyperglycemia. 6. Peripheral neuropathy secondary to diabetes mellitus type 2. 7. Increased creatinine with chronic kidney stage 3. 8. Hyponatremia. 9. Increased alkaline phosphatase. .. 10.Increased CRP. 11.Hypoalbuminemia with mild protein calorie malnutrition. 12.History of diabetes mellitus type 2. 13.History of sleep apnea. 14.History of congestive heart failure with ejection fraction unknown. 15.History of peripheral neuropathy. 16.History of MRSA. 17.History of degenerative joint disease. 18.Obesity with body mass index of 47.1. 19.FULL CODE: RECOMMENDATION: Recommend to continue with the current medications, continue with the monitoring and symptomatic treatment, otherwise continue with the antibiotics and antifungals. PT, OT evaluation, possible ECF rehab. Guarded prognosis. Further recommendations to follow. MMODL / IJN: [id number] /
[2020-02-06 20:22] LABS: Glucose,Whole Blood 131 mg/dL (75-99)
[2020-02-06] MEDS: HYDROcodone/APAP 5-325MG 1 EACH TAB PO PRN (20:40)
--- NOTE | 2020-02-07 01:09 | PN ---
PROGRESS NOTE DATE OF SERVICE: 02/06/2020 REASON FOR FOLLOWUP: Left heel osteomyelitis, bilateral lower extremity cellulitis. INTERVAL HISTORY: Patient is currently afebrile, has been breathing comfortably. Denies having any chest pain or shortness of breath or cough. No nausea. No abdominal pain or pain to the lower extremity. PHYSICAL EXAMINATION: Blood pressure 125/73 with a pulse of 81, temperature 97.5. He is 92% on room air. General description is a middle-aged male lying in bed in no distress. Respiratory system: Unlabored breathing, clear to auscultation anteriorly. Heart S1, S2. Regular rate and rhythm. Abdomen soft, no tenderness. Lower extremities currently wrapped up. LAB: Wound culture showing Diann albicans. DIAGNOSTIC IMPRESSION AND PLAN: Patient with left heel osteomyelitis with recent culture positive for Morganella strep, diphtheroids and anaerobes for which the patient is continued on cefepime and Flagyl. Local care to continue as ordered and monitor clinical course closely. MMODL / IJN: [id number] /
[2020-02-07] MEDS: HYDROcodone/APAP 5-325MG 1 EACH TAB PO PRN ×2 (02:08→21:30)
[2020-02-07] MEDS: ALPRAZolam 0.25 MG TAB PO PRN (02:09)
[2020-02-07 06:50] LABS: Glucose,Whole Blood 109 mg/dL (75-99)
[2020-02-07] MEDS: INSULIN ASPART (NovoLOG) 100 UNIT/ML VIAL SQ SCH ×4 (07:10→20:31)
[2020-02-07] MEDS: INSULN ASP PRT/INSULIN ASPART 100 UNIT/ML 10 ML VIAL SQ SCH ×2 (07:52→17:41)
[2020-02-07] MEDS: CEFEPIME 2 GM in SODIUM CHLORIDE 0.9% 100 ML IVPB SCH ×2 (07:54→21:30)
[2020-02-07] MEDS: HEPARIN SODIUM,PORCINE 5,000 UNIT/ML 1 ML VIAL SQ SCH ×2 (07:54→21:30)
[2020-02-07] MEDS: ASPIRIN 81 MG PO SCH (07:56)
[2020-02-07] MEDS: PANTOPRAZOLE 40 MG TABLET PO SCH (07:56)
[2020-02-07] MEDS: MULTIVITAMINS, THERA 1 EACH TAB PO SCH (07:56)
[2020-02-07] MEDS: metroNIDAZOLE 500 MG TAB PO SCH ×2 (07:56→17:40)
--- NOTE | 2020-02-07 09:31 | PN ---
PROGRESS NOTE This is a 49-year-old gentleman, well known to me from the past. Patient has history of chronic renal failure, diabetes, patient came with infected right heel with maggot formation. The patient went for extensive debridement. The patient came back with cellulitis both lower extremities and under care of Infectious Disease. Bone scan did show patient has osteomyelitis of the calcaneus. The patient is under care of Infectious Disease and on long-term antibiotic. The patient also went for angiogram. At this point patient needs medical management and patient discharged. Will follow in the wound clinic for the left heel. We continue with local wound care. MMODL / IJN: [id number] /
[2020-02-07 11:17] LABS: Glucose,Whole Blood 54 mg/dL (75-99)
[2020-02-07 11:30] LABS: Glucose,Whole Blood 55 mg/dL (75-99)
[2020-02-07] MEDS: THIAMINE 100 MG TAB PO SCH (11:32)
[2020-02-07] MEDS: FOLIC ACID 1 MG TAB PO SCH (11:32)
[2020-02-07 11:41] LABS: Glucose,Whole Blood 50 mg/dL (75-99)
[2020-02-07 11:47] LABS: Glucose,Whole Blood 61 mg/dL (75-99)
[2020-02-07] MEDS: FLUCONAZOLE IN NACL,ISO-OSM 200 MG in SALINE 1 100ML.BAG IVPB SCH (11:56)
[2020-02-07 12:03] LABS: Glucose,Whole Blood 70 mg/dL (75-99)
[2020-02-07 16:22] LABS: Glucose,Whole Blood 90 mg/dL (75-99)
[2020-02-07] MEDS: SODIUM CHLORIDE 0.9% 1,000 ML IV SCH (17:40)
--- NOTE | 2020-02-07 19:56 | US ---
EXAMINATION TYPE: US venous doppler duplex UE LT DATE OF EXAM: 02/07/2020 COMPARISON: NONE CLINICAL HISTORY: edema/rule out dvt. Edema, on heparin and aspirin per patient. PICC line. SIDE PERFORMED: Left Left Arm: Negative for DVT. Brachial vein compression pictures deferred due to PICC line. Edema vis ualized. Cephalic vein not visualized due to edema. IMPRESSION: No evidence of deep vein thrombosis in the left arm. There is patency of the subclavian and axillary and brachial veins.
[2020-02-07 20:19] LABS: Glucose,Whole Blood 75 mg/dL (75-99)
--- NOTE | 2020-02-07 23:29 | P.PN ---
Subjective Progress Note Date: 02/07/20 Principal diagnosis: Bilateral LE cellulitis Mr. Lopez is a 49-year-old male with a past medical history of type 2 diabetes mellitus, sleep apnea, CHF, MRSA infection of the right shoulder coming in for worsening bilateral lower extremity cellulitis and heel ulcers. Patient was recently discharged from the hospital to extended care facility rehab but patient went home. Apparently he fell and was lying on the floor for almost 18 hours before he could get help. So the patient follow-up increasing cellulitis and blisters and was admitted to [facility] again. Patient was found to have hyperglycemia and a recent blood culture showed multiple organisms including anaerobic, Morganella, beta-hemolytic's, diphtheroids, alphahemolytic's and streptococci. Patient is currently on antibiotics in the form of cefepime and Flagyl. As the patient's culture was positive for Diann albicans he is also on fluconazole. The patient's vitals have been stable his temperature 97.4 blood pressure 154/79 saturating at 95% on room air. On reviewing his labs from 8 6 hemoglobin stable around 8.5. As per the nursing staff report there is increased swelling of his left upper extremity where he has a PICC line in place. Patient denied having any pain but thinks that his left hand is more swollen than the right hand. Active Medications Acetaminophen (Tylenol Tab) 650 mg PO Q8H PRN PRN Reason: Pain Last Admin: 02/05/20 11:32 Dose: 650 mg Documented by: Hydrocodone Bitart/Acetaminophen ([place] 5-325) 1 each PO Q6HR PRN PRN Reason: Pain Last Admin: 02/07/20 21:30 Dose: 1 each Documented by: Alprazolam (Xanax) 0.25 mg PO TID PRN PRN Reason: Anxiety Last Admin: 02/07/20 02:09 Dose: 0.25 mg Documented by: Aspirin (Aspirin) 81 mg PO DAILY [facility] Last Admin: 02/07/20 07:56 Dose: 81 mg Documented by: Folic Acid (Folic Acid) 1 mg PO DAILY@1200 [facility] Last Admin: 02/07/20 11:32 Dose: 1 mg Documented by: Heparin Sodium (Porcine) (Heparin) 5,000 unit SQ Q12HR [facility] Last Admin: 02/07/20 21:30 Dose: 5,000 unit Documented by: Cefepime HCl 2 gm/ Sodium (Chloride) 100 mls @ 25 mls/hr IVPB Q12H [facility] Last Admin: 02/07/20 21:30 Dose: 25 mls/hr Documented by: Sodium Chloride (Saline 0.9%) 1,000 mls @ 75 mls/hr IV .[id number] [facility] Last Admin: 02/07/20 17:40 Dose: 75 mls/hr Documented by: Fluconazole/Sodium Chloride (200 mg/ IV Solution) 100 mls @ 100 mls/hr IVPB DAILY [facility] Last Admin: 02/07/20 11:56 Dose: 100 mls/hr Documented by: Insulin Aspart (Novolog) 0 unit SQ ACHS [facility]; Protocol Last Admin: 02/07/20 20:31 Dose: Not Given Documented by: Insulin Aspart (Novolog Mix 70-30 Vial) 30 unit SQ AC-SUPPER [facility] Last Admin: 02/07/20 17:41 Dose: Not Given Documented by: Insulin Aspart (Novolog Mix 70-30 Vial) 40 unit SQ -BRKFST [facility] Last Admin: 02/07/20 07:52 Dose: 40 unit Documented by: Metronidazole (Flagyl) 500 mg PO Q8HR [facility] Last Admin: 02/07/20 17:40 Dose: 500 mg Documented by: Multivitamins (Theragran) 1 each PO DAILY [facility] Last Admin: 02/07/20 07:56 Dose: 1 each Documented by: Naloxone HCl (Narcan) 0.2 mg IV Q2M PRN PRN Reason: Opioid Reversal Pantoprazole Sodium (Protonix) 40 mg PO AC-BRKFST [facility] Last Admin: 02/07/20 07:56 Dose: 40 mg Documented by: Silver Sulfadiazine (Silvadene Cream) 1 applic TOPICAL DAILY [facility] Last Admin: 02/07/20 10:54 Dose: Not Given Documented by: Thiamine HCl (Vitamin B-1) 100 mg PO DAILY@1200 [facility] Last Admin: 02/07/20 11:32 Dose: 100 mg Documented by: Objective - Vital Signs Vital signs: Vital Signs Temp 98.4 F 02/07/20 14:27 Pulse 75 02/07/20 14:27 Resp 15 02/07/20 14:27 BP 134/88 02/07/20 14:27 Pulse Ox 95 02/07/20 14:27 Intake & Output 02/06/20 02/07/20 02/07/20 18:59 06:59 18:59 Other: Voiding Method Incontinent Incontinent # Voids 1 1 1 # Bowel Movements 1 1 1 - Exam General appearance: alert, in no apparent distress Head exam: atraumatic, normocephalic, normal inspection Eye exam: normal appearance, EOMI. No scleral icterus, no conjunctival injection Neck exam: short webbed neck Respiratory exam: decreased breath sounds on bilateral lower lung hameed Cardiovascular Exam:regular rate, normal rhythm, normal heart sounds. Extremities exam: bilateral LE wrapped in PEDRO banadage, I did not open them. Left Upper extremity - fingers are swollen and pitting edema noted. He was in pain on touching his lower extremities Neurological exam: alert, awake , oriented X2-3 - Labs CBC & Chem 7: 02/12/20 07:33 02/12/20 12:30 Labs: Abnormal Lab Results - Last 24 Hours (Table) 02/06/20 02/07/20 02/07/20 Range/Units 20:20 06:48 11:15 POC Glucose (mg/dL) 131 H 109 H 54 L (75-99) mg/dL 02/07/20 02/07/20 02/07/20 Range/Units 11:28 11:30 11:43 POC Glucose (mg/dL) 55 L 50 L 61 L (75-99) mg/dL 02/07/20 Range/Units 12:00 POC Glucose (mg/dL) 70 L (75-99) mg/dL Microbiology - Last 24 Hours (Table) 02/02/20 12:14 Blood Culture - Preliminary Blood No Growth after 120 hours 02/02/20 20:53 Anaerobic Culture - Final Leg - Left Assessment and Plan Assessment: ASSESSMENT Acute bilateral lower extremity cellulitis failed outpatient therapy Left heel diabetic ulcer, status post debridement Possible osteomyelitis of the left calcaneal bone Diann albicans from the wound culture Microcytic anemia Type 2 diabetes mellitus poorly controlled with hyperglycemia Peripheral neuropathy CKD stage III Hyponatremia Hypoalbuminemia with mild protein calorie malnutrition Obstructive sleep apnea Possible obesity hypoventilation syndrome History of congestive heart failure with unknown ejection fraction History of MRSA of the right shoulder Degenerative joint disease Morbid obesity with BMI 47.1 PLAN: Continue the patient on IV antibiotics in the form of cefepime and Flagyl. Has a cultures are growing Diann albicans he was started on fluconazole which will be continued. Vascular surgery Dr. Hernández and ID Dr. Ohara on board and following the patient closely. Patient desaturating slightly in the morning could be because of his obesity hypoventilation syndrome, so the patient has been started on BiPAP of 10/5 that could be started from tonight. Continue with current medication regimen. Further recommendations to follow depending on the progress of the patient. Overall prognosis is guarded.
--- NOTE | 2020-02-07 23:40 | PN ---
PROGRESS NOTE DATE OF SERVICE: 02/07/2020 REASON FOR FOLLOWUP: Left heel osteomyelitis and bilateral lower extremity cellulitis. INTERVAL HISTORY: Patient is currently afebrile, has been breathing comfortably. Denies having any chest pain or shortness of breath or cough. No nausea, abdominal pain. Overall pain and discomfort to the left heel has improved. PHYSICAL EXAMINATION: Blood pressure 154/79 with a pulse of 75, temperature 97.4. He is 97% on room air. General description: The patient is a middle-aged male lying in bed in no distress. Respiratory system: Unlabored breathing. Clear to auscultation anteriorly. Heart S1, S2. Regular rate and rhythm. Legs are currently wrapped up. No obvious drainage on the dressing. LABS: No new labs have been obtained today. DIAGNOSTIC IMPRESSION AND PLAN: Patient with bilateral lower extremity cellulitis with left heel osteomyelitis. The patient is currently covered with cefepime and Flagyl to continue on the basis of his previous culture, waiting placement. Continue supportive care. MMODL / IJN: [id number] /
[2020-02-08] MEDS: ALPRAZolam 0.25 MG TAB PO PRN (01:02)
[2020-02-08] MEDS: metroNIDAZOLE 500 MG TAB PO SCH ×4 (01:02→23:58)
[2020-02-08] MEDS: SODIUM CHLORIDE 0.9% 1,000 ML IV SCH ×2 (04:42→08:46)
[2020-02-08 06:46] LABS: Glucose,Whole Blood 129 mg/dL (75-99)
[2020-02-08] MEDS: INSULIN ASPART (NovoLOG) 100 UNIT/ML VIAL SQ SCH ×4 (06:59→21:06)
[2020-02-08] MEDS: FLUCONAZOLE IN NACL,ISO-OSM 200 MG in SALINE 1 100ML.BAG IVPB SCH (07:30)
[2020-02-08 07:35] LABS: Anisocytosis Slight; HCT 29.1 % (39.0-53.0); Hypochromasia Marked; MCH 29.6 pg (25.0-35.0); MCHC 27.5 g/dL (31.0-37.0); MCV 107.9 fL (80.0-100.0); Macrocytosis Marked; Mean Platelet Volume 9.4; Platelet Count 212 k/uL (150-450); RBC 2.69 m/uL (4.30-5.90); RDW 17.2 % (11.5-15.5)
[2020-02-08 07:49] LABS: Albumin 2.2 g/dL (3.5-5.0); Calcium 7.5 mg/dL (8.4-10.2); Potassium 5.1 mmol/L (3.5-5.1); Total Bilirubin 0.6 mg/dL (0.2-1.3); Total Protein 6.3 g/dL (6.3-8.2)
[2020-02-08] MEDS: PANTOPRAZOLE 40 MG TABLET PO SCH (08:22)
[2020-02-08] MEDS: MULTIVITAMINS, THERA 1 EACH TAB PO SCH (08:22)
[2020-02-08] MEDS: ASPIRIN 81 MG PO SCH (08:23)
[2020-02-08] MEDS: HEPARIN SODIUM,PORCINE 5,000 UNIT/ML 1 ML VIAL SQ SCH ×2 (08:23→14:36)
[2020-02-08] MEDS: CEFEPIME 2 GM in SODIUM CHLORIDE 0.9% 100 ML IVPB SCH ×2 (08:47→21:06)
[2020-02-08 09:24] LABS: Band Neutrophils % 2 %; Metamyelocytes % 1 %; Monocytes # (M) 0.26 k/uL (0-1.0); Myelocytes % 1 %; Neutrophils % (M) 74 %; Nucleated Red Blood Cells 1 /100 WBC (0-0); Total Cells Counted 200
[2020-02-08 09:25] LABS: Eosinophils # (M) 0.38 k/uL (0-0.7); Lymphocytes # (M) 0.83 k/uL (1.0-4.8); Metamyelocytes # (M) 0.06 k/uL (0); Myelocytes # (M) 0.06 k/uL (0); WBC 6.4 k/uL (3.8-10.6)
[2020-02-08] MEDS: INSULN ASP PRT/INSULIN ASPART 100 UNIT/ML 10 ML VIAL SQ SCH ×2 (10:10→18:09)
[2020-02-08] MEDS: HYDROcodone/APAP 5-325MG 1 EACH TAB PO PRN (11:08)
[2020-02-08 11:15] LABS: Glucose,Whole Blood 151 mg/dL (75-99)
[2020-02-08] MEDS: FOLIC ACID 1 MG TAB PO SCH (13:14)
[2020-02-08] MEDS: THIAMINE 100 MG TAB PO SCH (13:14)
--- NOTE | 2020-02-08 14:38 | P.PN ---
Subjective Progress Note Date: 02/08/20 Principal diagnosis: Bilateral LE cellulitis Mr. Lopez is a 49-year-old male with a past medical history of type 2 diabetes mellitus, sleep apnea, CHF, MRSA infection of the right shoulder coming in for worsening bilateral lower extremity cellulitis and heel ulcers. Patient was recently discharged from the hospital to extended care facility rehab but patient went home. Apparently he fell and was lying on the floor for almost 18 hours before he could get help. So the patient follow-up increasing cellulitis and blisters and was admitted to [facility] again. Patient was found to have hyperglycemia and a recent blood culture showed multiple organisms including anaerobic, Morganella, beta-hemolytic's, diphtheroids, alphahemolytic's and streptococci. Patient is currently on antibiotics in the form of cefepime and Flagyl. As the patient's culture was positive for Diann albicans he is also on fluconazole. The patient's vitals have been stable his temperature 97.4 blood pressure 154/79 saturating at 95% on room air. On reviewing his labs from 8 6 hemoglobin stable around 8.5. As per the nursing staff report there is increased swelling of his left upper extremity where he has a PICC line in place. Patient denied having any pain but thinks that his left hand is more swollen than the right hand. On 02/08/2020 - patient is sitting up in a chair by the bedside. As per the nursing staff report patient had a bloody bowel movement this morning. Initially it was few drops but later on there was a clot in the common by the be dside. Patient denied having any abdominal pain. He states that he didn't even notice that he had blood in his stool. Patient denied having any nausea or vomiting. No diarrhea. He denies having any fever, chills or rigors. Patient is not on any anticoagulation except for home dose of aspirin 81 mg and subcu heparin for DVT prophylaxis that was started in the hospital.patient denies having any shortness of breath or palpitations. He denies having any dizziness. He states that his tailbone hurts from sitting for too long on the chair. On reviewing his vitals patient'sT-max is 97.6, blood pressure 132/80, saturating at 95% on room air.on reviewing the labs from this morning his hemoglobin is 8. electrolytes from this morning showing sodium of 136, chloride of 113, bicarb of 16, B and 57 and creatinine trending up to 2.91. Patient also had a left upper extremity Doppler that was negative for DVT yesterday evening. Active Medications Acetaminophen (Tylenol Tab) 650 mg PO Q8H PRN PRN Reason: Pain Last Admin: 02/05/20 11:32 Dose: 650 mg Documented by: Hydrocodone Bitart/Acetaminophen ([place] 5-325) 1 each PO Q6HR PRN PRN Reason: Pain Last Admin: 02/08/20 11:08 Dose: 1 each Documented by: Alprazolam (Xanax) 0.25 mg PO TID PRN PRN Reason: Anxiety Last Admin: 02/08/20 01:02 Dose: 0.25 mg Documented by: Aspirin (Aspirin) 81 mg PO DAILY REPLACED BY [facility] Last Admin: 02/08/20 08:23 Dose: 81 mg Documented by: Folic Acid (Folic Acid) 1 mg PO DAILY@1200 REPLACED BY [facility] Last Admin: 02/08/20 13:14 Dose: 1 mg Documented by: Heparin Sodium (Porcine) (Heparin) 5,000 unit SQ Q12HR REPLACED BY [facility] Last Admin: 02/08/20 08:23 Dose: 5,000 unit Documented by: Cefepime HCl 2 gm/ Sodium (Chloride) 100 mls @ 25 mls/hr IVPB Q12H REPLACED BY [facility] Last Admin: 02/08/20 08:47 Dose: 25 mls/hr Documented by: Sodium Chloride (Saline 0.9%) 1,000 mls @ 75 mls/hr IV .[id number] REPLACED BY [facility] Last Admin: 02/08/20 08:46 Dose: 75 mls/hr Documented by: Fluconazole/Sodium Chloride (200 mg/ IV Solution) 100 mls @ 100 mls/hr IVPB DAILY REPLACED BY [facility] Last Admin: 02/08/20 07:30 Dose: 100 mls/hr Documented by: Insulin Aspart (Novolog) 0 unit SQ ACHS REPLACED BY [facility]; Protocol Last Admin: 02/08/20 13:14 Dose: 2 unit Documented by: Insulin Aspart (Novolog Mix 70-30 Vial) 30 unit SQ AC-SUPPER REPLACED BY [facility] Last Admin: 02/07/20 17:41 Dose: Not Given Documented by: Insulin Aspart (Novolog Mix 70-30 Vial) 40 unit SQ AC-BRKFST REPLACED BY [facility] Last Admin: 02/08/20 10:10 Dose: 40 unit Documented by: Metronidazole (Flagyl) 500 mg PO Q8HR REPLACED BY [facility] Last Admin: 02/08/20 08:22 Dose: 500 mg Documented by: Multivitamins (Theragran) 1 each PO DAILY REPLACED BY [facility] Last Admin: 02/08/20 08:22 Dose: 1 each Documented by: Naloxone HCl (Narcan) 0.2 mg IV Q2M PRN PRN Reason: Opioid Reversal Pantoprazole Sodium (Protonix) 40 mg PO AC-BRKFST REPLACED BY [facility] Last Admin: 02/08/20 08:22 Dose: 40 mg Documented by: Silver Sulfadiazine (Silvadene Cream) 1 applic TOPICAL DAILY REPLACED BY [facility] Last Admin: 02/07/20 10:54 Dose: Not Given Documented by: Thiamine HCl (Vitamin B-1) 100 mg PO DAILY@1200 REPLACED BY [facility] Last Admin: 02/08/20 13:14 Dose: 100 mg Documented by: Objective - Vital Signs Vital signs: Vital Signs Temp 97.6 F 02/08/20 07:00 Pulse 72 02/08/20 07:00 Resp 17 02/08/20 07:00 BP 132/80 02/08/20 07:00 Pulse Ox 95 02/08/20 07:00 Intake & Output 02/07/20 02/08/20 02/08/20 18:59 06:59 18:59 Intake Total 360 Balance 360 Weight 136.5 kg Intake: Oral 360 Other: Voiding Method Incontinent Incontinent Bedside Commode Incontinent # Voids 1 3 1 # Bowel Movements 1 3 1 - Exam PHYSICAL EXAM General appearance: alert, in no apparent distress Head exam: atraumatic, normocephalic, normal inspection Eye exam: normal appearance, PERRL, EOMI. no scleral icterus, no conjunctival injection Neck exam: short webbed neck Respiratory exam: decreased breath sounds on bilateral lower lung hameed Cardiovascular Exam:regular rate, normal rhythm, normal heart sounds. Extremities exam: bilateral LE wrapped in PEDRO banadage, I did not open them. Left Upper extremity - fingers are swollen and pitting edema noted Neurological exam: alert, awake , oriented X3 , no focal deficits - Labs CBC & Chem 7: 02/08/20 06:53 02/08/20 06:53 Labs: Abnormal Lab Results - Last 24 Hours (Table) 02/08/20 02/08/20 02/08/20 Range/Units 06:44 06:53 06:53 RBC 2.69 L (4.30-5.90) m/uL Hgb 8.0 L (13.0-17.5) gm/dL Hct 29.1 L (39.0-53.0) % MCV 107.9 H (80.0-100.0) fL MCHC 27.5 L (31.0-37.0) g/dL RDW 17.2 H (11.5-15.5) % Lymphocytes # (Manual) 0.83 L (1.0-4.8) k/uL Metamyelocytes # (Man) 0.06 H (0) k/uL Myelocytes # (Manual) 0.06 H (0) k/uL Nucleated RBCs 1 H (0-0) /100 WBC Macrocytosis Marked A Sodium 136 L (137-145) mmol/L Chloride 113 H (98-107) mmol/L Carbon Dioxide 16 L (22-30) mmol/L BUN 57 H (9-20) mg/dL Creatinine 2.91 H (0.66-1.25) mg/dL POC Glucose (mg/dL) 129 H (75-99) mg/dL Calcium 7.5 L (8.4-10.2) mg/dL Alkaline Phosphatase 296 H (38-126) U/L Albumin 2.2 L (3.5-5.0) g/dL 02/08/20 Range/Units 11:13 RBC (4.30-5.90) m/uL Hgb (13.0-17.5) gm/dL Hct (39.0-53.0) % MCV (80.0-100.0) fL MCHC (31.0-37.0) g/dL RDW (11.5-15.5) % Lymphocytes # (Manual) (1.0-4.8) k/uL Metamyelocytes # (Man) (0) k/uL Myelocytes # (Manual) (0) k/uL Nucleated RBCs (0-0) /100 WBC Macrocytosis Sodium (137-145) mmol/L Chloride (98-107) mmol/L Carbon Dioxide (22-30) mmol/L BUN (9-20) mg/dL Creatinine (0.66-1.25) mg/dL POC Glucose (mg/dL) 151 H (75-99) mg/dL Calcium (8.4-10.2) mg/dL Alkaline Phosphatase (38-126) U/L Albumin (3.5-5.0) g/dL Microbiology - Last 24 Hours (Table) 02/02/20 12:14 Blood Culture - Preliminary Blood No Growth after 120 hours Assessment and Plan Assessment: ASSESSMENT Acute bilateral lower extremity cellulitis failed outpatient therapy Left heel diabetic ulcer, status post debridement Possible osteomyelitis of the left calcaneal bone Diann albicans from the wound culture Blood in the stool Microcytic anemia Type 2 diabetes mellitus poorly controlled with hyperglycemia Peripheral neuropathy CKD stage III Hyponatremia Hypoalbuminemia with mild protein calorie malnutrition Obstructive sleep apnea Possible obesity hypoventilation syndrome History of congestive heart failure with unknown ejection fraction History of MRSA of the right shoulder Degenerative joint disease Morbid obesity with BMI 47.1 PLAN: patient had one episode of blood clot in the stool this morning. We will hold off on aspirin and heparin for now. We will continue to monitor his H&H, will consult GI for possible colonoscopy, if he continues to bleed. As the patient's creatinine is trending up, will consult nephrology.Continue the patient on IV antibiotics in the form of cefepime and Flagyl. Has a cultures are growing Diann albicans he was started on fluconazole which will be continued. Vascular surgery Dr. Hernández and ID Dr. Ohara on board and following the patient closely. Patient has been started on BiPAP last night due to concerns of obesity hypoventilation syndrome. his left upper extremity Doppler has been negative for DVT. Continue with current medication regimen. Further recommendations to follow depending on the progress of the patient. Overall prognosis is guarded.
[2020-02-08 16:54] LABS: Glucose,Whole Blood 169 mg/dL (75-99)
[2020-02-08 18:14] LABS: Anisocytosis Slight; HCT 27.5 % (39.0-53.0); HGB 7.9 gm/dL (13.0-17.5); Hypochromasia Marked; MCH 30.7 pg (25.0-35.0); MCHC 28.8 g/dL (31.0-37.0); MCV 106.4 fL (80.0-100.0); Macrocytosis Marked; Mean Platelet Volume 9.2; Platelet Count 216 k/uL (150-450); RBC 2.59 m/uL (4.30-5.90); RDW 17.3 % (11.5-15.5); WBC 8.7 k/uL (3.8-10.6)
[2020-02-08 20:40] LABS: Glucose,Whole Blood 131 mg/dL (75-99)
[2020-02-08 23:56] LABS: Glucose,Whole Blood 87 mg/dL (75-99)
--- NOTE | 2020-02-09 00:41 | PN ---
PROGRESS NOTE DATE OF SERVICE: 02/08/2020 REASON FOR FOLLOWUP: Left heel osteomyelitis and lower extremity cellulitis. INTERVAL HISTORY: The patient is currently afebrile, has been breathing comfortably. Denies having any chest pain or shortness of breath or cough. No nausea or vomiting. No abdominal pain or any worsening of pain to the left leg. PHYSICAL EXAMINATION: Blood pressure is 143/83 with a pulse of 76, temperature 97.6. He is 96% on room air. General description is a middle-aged male lying in bed in no distress. RESPIRATORY SYSTEM: Unlabored breathing, clear to auscultation anteriorly. HEART: S1, S2. Regular rate and rhythm. ABDOMEN: Soft, no tenderness. Left heel still has significant amount of slough tissue and the leg redness has improved. LABS: Hemoglobin 8, white count 6.4, BUN of 57, creatinine is 2.91. DIAGNOSTIC IMPRESSION AND PLAN: Patient with left heel osteomyelitis, acute with negative infiltration with recent culture positive for gram-negative and strep while the patient is currently covered with cefepime and Flagyl to continue. He will need further surgical debridement were discussed with Vascular Surgery. Continue supportive care. MMODL / IJN: [id number] /
[2020-02-09] MEDS: SODIUM CHLORIDE 0.9% 1,000 ML IV SCH ×2 (05:42→17:52)
[2020-02-09 07:18] LABS: Glucose,Whole Blood 101 mg/dL (75-99)
--- NOTE | 2020-02-09 07:28 | P.CONS ---
History of Present Illness - Reason for Consult Consult date: 02/08/20 Blood per rectum Requesting physician: Edson Urias - Chief Complaint Bilateral cellulitis - History of Present Illness 49-year-old male with a medical history significant for diabetes mellitus, congestive heart failure, obstructive sleep apnea who presented to the hospital with complaints of lower extremity redness and pain. Patient being treated for bilateral lower extremity cellulitis and ulcerations of the heels. Patient is currently being treated with broad-spectrum antibiotic therapy. The patient did have a bowel movement with blood per rectum noted and GI was consult for further evaluation. He denies any prior history of GI bleeding. No prior endoscopic evaluation with either EGD or colonoscopy. At baseline he reports daily regular bowel movements. No melena reported. No further blood since he 1 episode. Laboratory evaluation significant for WBC 6.4, hemoglobin 8, platelet count 212,000 with baseline hemoglobin of 8-9 and macrocytic indices. Review of Systems REVIEW OF SYSTEMS: CONSTITUTIONAL: Denies any fevers, chills, weight change or fatigue. CARDIOVASCULAR: Denies any chest pain, palpitations high or low blood pressures RESPIRATORY: Denies any shortness of breath, hemoptysis or cough. GENITOURINARY: No dysuria or hematuria. MUSCULOSKELETAL: No weakness reported. SKIN: Denies any jaundice or pallor, but has bilateral lower extremity cellulitis. PSYCHIATRIC: Denies any depression or anxiety. NEUROLOGY: Denies headache, denies any new focal deficits. EARS/NOSE/THROAT: No recent hearing change, congestion, nasal discharge or sore throat. EYES: No pain in eyes, discharge or change in vision. GASTROINTESTINAL: As per HPI. Past Medical History Past Medical History: Diabetes Mellitus, Sleep Apnea/CPAP/BIPAP Additional Past Medical History / Comment(s): CHF, neuropathy History of Any Multi-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:: 2004 MDRO Source:: Rt shoulder Past Surgical History: Orthopedic Surgery Additional Past Surgical History / Comment(s): carpal tunnel in right wrist, MRSA infection drain in right shoulder Past Anesthesia/Blood Transfusion Reactions: No Reported Reaction Past Psychological History: No Psychological Hx Reported Smoking Status: Never smoker Past Alcohol Use History: None Reported, Unable to Obtain Past Drug Use History: None Reported - Past Family History Father Family Medical History: Cancer Sister(s) Family Medical History: Cancer Additional Family Medical History / Comment(s): cervical cancer Brother(s) Family Medical History: Liver Disease Additional Family Medical History / Comment(s): from liver cirrhosis. another brother has throat cancer Medications and Allergies Home Medications Medication Instructions Recorded Confirmed Type Aspirin [[place] Aspirin EC] 81 mg PO DAILY 01/24/20 02/02/20 History Multivitamins, Thera [Multivitamin 1 tab PO DAILY 01/24/20 02/02/20 History (formulary)] Famotidine [Pepcid] 20 mg PO Q12HR 30 Days #60 tab 01/30/20 02/02/20 Rx Insuln Asp Prt/Insulin Aspart 35 unit SQ AC-SUPPER 30 Days #3 01/30/20 02/02/20 Rx [NovoLOG MIX 70-30 VIAL] vial Insuln Asp Prt/Insulin Aspart 50 unit SQ AC-BRKFST 30 Days #3 01/30/20 02/02/20 Rx [NovoLOG MIX 70-30 VIAL] vial metroNIDAZOLE [Flagyl] 500 mg PO Q8HR #90 tab 01/30/20 02/02/20 Rx Acetaminophen [Tylenol] 650 mg PO Q8H PRN 02/02/20 02/02/20 History Allergies Allergy/AdvReac Type Severity Reaction Status Date / Time Penicillins Allergy Swelling Verified 02/02/20 12:35 Sulfa (Sulfonamide Allergy Unknown Verified 02/02/20 12:35 Antibiotics) Physical Exam Vitals: Vital Signs Temp Pulse Resp BP Pulse Ox 02/08/20 07:00 97.6 F 72 17 132/80 95 02/08/20 04:00 76 18 02/08/20 02:36 97.6 F 76 18 136/79 94 L 02/08/20 00:00 20 02/07/20 20:11 97.4 F L 75 20 154/79 97 02/07/20 20:05 20 02/07/20 14:27 98.4 F 75 15 134/88 95 Intake and Output 02/07/20 02/08/20 02/08/20 22:59 06:59 14:59 Intake Total 360 Balance 360 Intake: Oral 360 Other: Voiding Method Incontinent Incontinent # Voids 1 3 1 # Bowel Movements 1 3 1 On physical examination, patient appears comfortable in no apparent distress. HEAD: Normocephalic, atraumatic. EYES: No scleral icterus. No conjunctival injection. MOUTH: No lesions, tongue midline. NECK: Trachea midline, no gross abnormalities. CHEST: Clear to auscultation with no wheezing or rhonchi appreciated. HEART: Regular rate and rhythm. ABDOMEN: Soft, obese. Bowel sounds are positive. No organomegaly. No guarding or rigidity. EXTREMITIES: Bilateral lower extremity cellulitis. SKIN: No rashes, no jaundice, bilateral lower extremity cellulitis. NEUROLOGIC: Alert and oriented. No focal deficits. Results CBC & Chem 7: 02/08/20 17:43 02/08/20 06:53 Labs: Abnormal Lab Results - Last 24 Hours (Table) 02/07/20 02/07/20 02/07/20 Range/Units 11:15 11:28 11:30 RBC (4.30-5.90) m/uL Hgb (13.0-17.5) gm/dL Hct (39.0-53.0) % MCV (80.0-100.0) fL MCHC (31.0-37.0) g/dL RDW (11.5-15.5) % Lymphocytes # (Manual) (1.0-4.8) k/uL Metamyelocytes # (Man) (0) k/uL Myelocytes # (Manual) (0) k/uL Nucleated RBCs (0-0) /100 WBC Macrocytosis Sodium (137-145) mmol/L Chloride (98-107) mmol/L Carbon Dioxide (22-30) mmol/L BUN (9-20) mg/dL Creatinine (0.66-1.25) mg/dL POC Glucose (mg/dL) 54 L 55 L 50 L (75-99) mg/dL Calcium (8.4-10.2) mg/dL Alkaline Phosphatase (38-126) U/L Albumin (3.5-5.0) g/dL 02/07/20 02/07/20 02/08/20 Range/Units 11:43 12:00 06:44 RBC (4.30-5.90) m/uL Hgb (13.0-17.5) gm/dL Hct (39.0-53.0) % MCV (80.0-100.0) fL MCHC (31.0-37.0) g/dL RDW (11.5-15.5) % Lymphocytes # (Manual) (1.0-4.8) k/uL Metamyelocytes # (Man) (0) k/uL Myelocytes # (Manual) (0) k/uL Nucleated RBCs (0-0) /100 WBC Macrocytosis Sodium (137-145) mmol/L Chloride (98-107) mmol/L Carbon Dioxide (22-30) mmol/L BUN (9-20) mg/dL Creatinine (0.66-1.25) mg/dL POC Glucose (mg/dL) 61 L 70 L 129 H (75-99) mg/dL Calcium (8.4-10.2) mg/dL Alkaline Phosphatase (38-126) U/L Albumin (3.5-5.0) g/dL 02/08/20 02/08/20 Range/Units 06:53 06:53 RBC 2.69 L (4.30-5.90) m/uL Hgb 8.0 L (13.0-17.5) gm/dL Hct 29.1 L (39.0-53.0) % MCV 107.9 H (80.0-100.0) fL MCHC 27.5 L (31.0-37.0) g/dL RDW 17.2 H (11.5-15.5) % Lymphocytes # (Manual) 0.83 L (1.0-4.8) k/uL Metamyelocytes # (Man) 0.06 H (0) k/uL Myelocytes # (Manual) 0.06 H (0) k/uL Nucleated RBCs 1 H (0-0) /100 WBC Macrocytosis Marked A Sodium 136 L (137-145) mmol/L Chloride 113 H (98-107) mmol/L Carbon Dioxide 16 L (22-30) mmol/L BUN 57 H (9-20) mg/dL Creatinine 2.91 H (0.66-1.25) mg/dL POC Glucose (mg/dL) (75-99) mg/dL Calcium 7.5 L (8.4-10.2) mg/dL Alkaline Phosphatase 296 H (38-126) U/L Albumin 2.2 L (3.5-5.0) g/dL Microbiology - Last 24 Hours (Table) 02/02/20 12:14 Blood Culture - Preliminary Blood No Growth after 120 hours Assessment and Plan (1) Blood per rectum Narrative/Plan: 49-year-old male presenting with lower extremity cellulitis currently on antibiotic therapy. GI was consulted for one episode of painless bright red blood per rectum. No prior colonoscopy reported. No prior history of GI bleed. The patient is anemic with a macrocytic anemia however this is likely anemia of chronic disease and has been stable since presentation. No further bleeding since that time. Suspicion is for hemorrhoidal disease, differential also includes diverticular disease, AVM, or other etiology. Current Visit: Yes Status: Acute Code(s): K62.5 - HEMORRHAGE OF ANUS AND RECTUM SNOMED Code(s): 11806574 (2) Macrocytic anemia Current Visit: Yes Status: Acute Code(s): D53.9 - NUTRITIONAL ANEMIA, UNSPECIFIED SNOMED Code(s): 51859781 Plan: Supportive care Okay for diet Continue other medical management Continue monitor CBC, BMP, LFTs Hemorrhoidal care with hydrocortisone cream ordered Extensive discussion with the patient can follow up after discharge for outpatient colonoscopy, no prior screening colonoscopy reported Thank you for allowing us to participate in the care of the patient
[2020-02-09 08:22] LABS: Calcium 7.6 mg/dL (8.4-10.2); Potassium 4.6 mmol/L (3.5-5.1)
[2020-02-09 08:48] LABS: Anisocytosis Slight; Basophils # (A) 0.1 k/uL (0-0.2); Basophils % (A) 1 %; Eosinophils # (A) 0.3 k/uL (0-0.7); Eosinophils % (A) 4 %; HCT 28.2 % (39.0-53.0); HGB 8.2 gm/dL (13.0-17.5); Hypochromasia Marked; Lymphocytes # (A) 1.5 k/uL (1.0-4.8); Lymphocytes % (A) 17 %; MCH 30.9 pg (25.0-35.0); MCHC 29.2 g/dL (31.0-37.0); MCV 105.8 fL (80.0-100.0); Macrocytosis Marked; Mean Platelet Volume 9.7; Monocytes # (A) 0.5 k/uL (0-1.0); Monocytes % (A) 6 %; Neutrophils # (A) 6.1 k/uL (1.3-7.7); Neutrophils % (A) 71 %; Platelet Count 224 k/uL (150-450); RBC 2.66 m/uL (4.30-5.90); RDW 17.4 % (11.5-15.5); WBC 8.6 k/uL (3.8-10.6)
[2020-02-09] MEDS: INSULIN ASPART (NovoLOG) 100 UNIT/ML VIAL SQ SCH ×4 (08:56→20:41)
[2020-02-09] MEDS: CEFEPIME 2 GM in SODIUM CHLORIDE 0.9% 100 ML IVPB SCH ×2 (09:40→20:44)
[2020-02-09] MEDS: HEPARIN SODIUM,PORCINE 5,000 UNIT/ML 1 ML VIAL SQ SCH ×2 (09:41→20:44)
[2020-02-09] MEDS: MULTIVITAMINS, THERA 1 EACH TAB PO SCH (09:42)
[2020-02-09] MEDS: metroNIDAZOLE 500 MG TAB PO SCH ×2 (09:42→17:52)
[2020-02-09] MEDS: ASPIRIN 81 MG PO SCH (09:42)
[2020-02-09] MEDS: FOLIC ACID 1 MG TAB PO SCH (09:42)
[2020-02-09] MEDS: PANTOPRAZOLE 40 MG TABLET PO SCH (09:42)
[2020-02-09] MEDS: THIAMINE 100 MG TAB PO SCH (09:42)
[2020-02-09] MEDS: INSULN ASP PRT/INSULIN ASPART 100 UNIT/ML 10 ML VIAL SQ SCH ×2 (09:42→17:47)
[2020-02-09] MEDS: HYDROcodone/APAP 5-325MG 1 EACH TAB PO PRN (10:45)
[2020-02-09] MEDS: FLUCONAZOLE IN NACL,ISO-OSM 200 MG in SALINE 1 100ML.BAG IVPB SCH (10:47)
[2020-02-09] MEDS: HYDROCORTISONE 2.5% RECTAL CREAM 30 GM TUBE RECTAL SCH ×2 (10:48→20:44)
[2020-02-09 11:29] LABS: Glucose,Whole Blood 92 mg/dL (75-99)
[2020-02-09] MEDS ORDERED: FUROSEMIDE 10 MG/ML 10 ML VIAL IV STA (11:55)
--- NOTE | 2020-02-09 12:35 | P.NPCON ---
History of Present Illness - Reason for Consult acute renal failure - History of Present Illness Reason for consultation: Acute kidney injury History of present illness: Patient is a 49-year-old male seen in consultation for acute kidney injury. Patient had developed acute kidney injury about 2 months ago due to septic ATN and was hemodialysis dependent for short period of time. Subsequently his kidne y function improved with creatinine down to near 1.1 and the permacath was removed. Patient presented to the hospital this admission with lower extremity wounds. Patient states he was discharged on IV antibiotics but noticed blistering with worsening of erythema fever and chills and came back to the hospital. Patient has long-standing history of diabetes mellitus. He has not been compliant with his medications outpatient. He was noted to have left heel nonhealing wound with maggot infestation in the past. He has undergone debridement in the past but needs more debridement in the future. He is currently on IV antibiotics. He's being followed by infectious disease. Patient's creatinine was 1.9 on admission and is up to 3.32 today. He is receiving IV fluids. Has significant edema in the lower extremities. Blood pressure stable. Afebrile. He has an external catheter and has been voiding. Vital signs are stable. General: The patient appeared well nourished and normally developed. HEENT: Head exam is unremarkable. Neck is without jugular venous distension. LUNGS: Lungs are clear to auscultation and percussion. Breath sounds decreased. HEART: Rate and Rhythm are regular. ABDOMEN: Soft, nontender. Obese. EXTREMITITES: 3+ edema. Lower extremities wrapped. No drainage noted. Past Medical History Past Medical History: Diabetes Mellitus, Sleep Apnea/CPAP/BIPAP Additional Past Medical History / Comment(s): CHF, neuropathy History of Any Multi-Drug Resistant Organisms: MRSA Date of last positivie culture/infection: 2004 MDRO Source:: Rt shoulder Past Surgical History: Orthopedic Surgery Additional Past Surgical History / Comment(s): carpal tunnel in right wrist, MRSA infection drain in right shoulder Past Anesthesia/Blood Transfusion Reactions: No Reported Reaction Past Psychological History: No Psychological Hx Reported Smoking Status: Never smoker Past Alcohol Use History: None Reported, Unable to Obtain Past Drug Use History: None Reported - Past Family History Father Family Medical History: Cancer Sister(s) Family Medical History: Cancer Additional Family Medical History / Comment(s): cervical cancer Brother(s) Family Medical History: Liver Disease Additional Family Medical History / Comment(s): from liver cirrhosis. another brother has throat cancer Medications and Allergies Home Medications Medication Instructions Recorded Confirmed Type Aspirin [[place] Aspirin EC] 81 mg PO DAILY 01/24/20 02/02/20 History Multivitamins, Thera [Multivitamin 1 tab PO DAILY 01/24/20 02/02/20 History (formulary)] Famotidine [Pepcid] 20 mg PO Q12HR 30 Days #60 tab 01/30/20 02/02/20 Rx Insuln Asp Prt/Insulin Aspart 35 unit SQ AC-SUPPER 30 Days #3 01/30/20 02/02/20 Rx [NovoLOG MIX 70-30 VIAL] vial Insuln Asp Prt/Insulin Aspart 50 unit SQ AC-BRKFST 30 Days #3 01/30/20 02/02/20 Rx [NovoLOG MIX 70-30 VIAL] vial metroNIDAZOLE [Flagyl] 500 mg PO Q8HR #90 tab 01/30/20 02/02/20 Rx Acetaminophen [Tylenol] 650 mg PO Q8H PRN 02/02/20 02/02/20 History Allergies Allergy/AdvReac Type Severity Reaction Status Date / Time Penicillins Allergy Swelling Verified 02/02/20 12:35 Sulfa (Sulfonamide Allergy Unknown Verified 02/02/20 12:35 Antibiotics) Physical Exam Vitals: Vital Signs Temp Pulse Resp BP Pulse Ox 02/09/20 07:00 97.4 F L 74 19 142/85 97 02/09/20 02:05 97.5 F L 71 18 177/85 96 02/08/20 15:00 97.6 F 76 17 143/83 96 Intake and Output 02/08/20 02/09/20 02/09/20 22:59 06:59 14:59 Intake Total 220 550 120 Output Total 1 Balance 220 549 120 Intake: Intake, IV Titration 100 550 Amount Cefepime 2 gm In Sodium 100 Chloride 0.9% 100 ml @ 25 mls/hr IVPB Q12H [facility] Rx# :[id number] Sodium Chloride 0.9% 1, 550 000 ml @ 75 mls/hr IV . [id number] [facility] Rx#:[id number] Oral 120 120 Output: Urine/Stool Mix 1 Other: Voiding Method Bedside Commode Bedside Commode Bedside Commode Diaper Diaper Diaper Incontinent Incontinent Incontinent # Voids 1 Results - Lab Results Most recent lab results Calcium 7.6 mg/dL (8.4-10.2) L 02/09/20 07:46 02/09/20 07:46 02/09/20 07:46 Assessment and Plan Plan: Assessment: 1. Acute kidney injury secondary to ATN secondary to infection. Creatinine 3.32 today. Rule out urinary retention. Baseline creatinine near 1. Patient was on hemodialysis in the past but the permacath was removed due to recovered renal function. 2. Left heel osteomyelitis maintained on antibiotics per infectious disease. Will need further debridement. 3. Insulin-dependent diabetes mellitus. 4. Volume overload. 5. History of MRSA pneumonia. 6. Metabolic acidosis secondary to acute kidney injury. 7. Anemia. Rule out iron deficiency. Plan: Decrease rate of normal saline to 50 mL an hour. Lasix 60 mg IV once today. Check bladder scan to rule out urinary retention. Check renal ultrasound. Strict I's and O's. Continue to monitor renal function and urine output. Avoid nephrotoxins. Add oral sodium bicarbonate. Check iron studies. Add Aranesp. Thank for the consultation. I will continue to follow the patient with you during his hospital stay.
[2020-02-09] MEDS ORDERED: DARBEPOETIN ALFA 40 MCG/0.4 ML SYRINGE SQ SCH (13:00)
--- NOTE | 2020-02-09 14:00 | PN ---
PROGRESS NOTE This is a 49-year-old gentleman known to me from the past. Patient came with wound of the foot on the heel area with maggots and foul odor smell wound. Patient went for deep debridement down to the calcaneus. The patient also has been diagnosed with the osteo of the calcaneus. The patient is under care of Infectious Disease. The patient also had a cellulitis of the both lower extremities. Cellulitis is improving. I have discussed with the Dr. Ohara, Infectious Disease to continue the antibiotic Will follow with the [facility]. MMODL / IJN: [id number] /
--- NOTE | 2020-02-09 14:07 | US ---
EXAMINATION TYPE: US kidneys/renal and bladder DATE OF EXAM: 02/09/2020 COMPARISON: NONE CLINICAL HISTORY: morgan. Very difficult and limited visualization due to patient body habitus and anasa rca . Patient cannot roll onto his side or take a deep breath and hold it EXAM MEASUREMENTS: Right Kidney: 9.0 x 6.3 x 5.5 cm Left Kidney: Not visualized Right Kidney: No hydronephrosis or masses seen Left Kidney: Not visualized Bladder: Very limited visualization There is no evidence for hydronephrosis at this point in time in the right kidney. No suboptimal isabella dy due to predominantly patient's large body habitus. Also patient has difficulty moving and holding breath. Visualized liver is markedly heterogeneously hyperechoic. No gross hydronephrosis in the righ t kidney. Suboptimal evaluation of bladder due to poor distention and left kidney on last images save d. IMPRESSION: Suboptimal study without right-sided hydronephrosis. Left kidney not successfully visuali zed.
[2020-02-09] MEDS: SODIUM BICARBONATE TAB 650 MG TAB PO SCH ×3 (14:49→20:44)
[2020-02-09] MEDS ORDERED: DEXTROSE 50% SYRINGE 50 ML IVP ONE (15:40)
--- NOTE | 2020-02-09 15:40 | CT ---
EXAMINATION TYPE: CODE STROKE: CT brain wo contr DATE OF EXAM: 02/09/2020 HISTORY: Altered mental status, difficulty with speech. CT DLP: 1141.4 mGycm. Automated Exposure Control for Dose Reduction was Utilized. TECHNIQUE: CT scan of the head is performed without contrast. COMPARISON: None. FINDINGS: There is no acute intracranial hemorrhage or midline shift identified. There is diffuse v entricular and sulcal prominence consistent with diffuse age-related cerebral atrophy. There is low- attenuation in the periventricular white matter consistent with chronic small vessel ischemic change. Some prominence of CSF in the posterior fossa could reflect maegan cisterna magna. Patchy opacificatio n of the inferior mastoid air cells, left greater than right The globes are intact and the visualized sinuses are clear. IMPRESSION: No acute intracranial hemorrhage or midline shift. There is mild diffuse cerebral atrop hy and moderate chronic small vessel ischemic change noted. Possible left greater than right mastoidi tis, correlate clinically.
[2020-02-09 15:49] LABS: Glucose,Whole Blood 38 mg/dL (75-99)
[2020-02-09 15:49] LABS: Glucose,Whole Blood 39 mg/dL (75-99)
[2020-02-09 16:19] LABS: Glucose,Whole Blood 44 mg/dL (75-99)
[2020-02-09 16:29] LABS: Glucose,Whole Blood 40 mg/dL (75-99)
[2020-02-09 17:05] LABS: Glucose,Whole Blood 43 mg/dL (75-99)
[2020-02-09] MEDS ORDERED: DEXTROSE 4 GM CHEWABLE PO STA (17:08)
[2020-02-09] MEDS ORDERED: ALTEPLASE 2 MG VIAL (CATHFLO) IV STA (17:13)
[2020-02-09 17:27] LABS: Glucose,Whole Blood 106 mg/dL (75-99)
--- NOTE | 2020-02-09 18:33 | PN ---
PROGRESS NOTE DATE OF SERVICE: 02/09/2020 REASON FOR FOLLOWUP: Bilateral lower extremity cellulitis and left heel osteomyelitis. INTERVAL HISTORY: Patient is currently afebrile. Patient is breathing comfortably. The patient denies having any chest pain or shortness of breath or cough. No abdominal pain. No diarrhea or pain to the lower extremities. PHYSICAL EXAMINATION: Blood pressure 142/87 with a pulse of 69, temperature is 97.6. He is 98% on room air. General description is a middle-aged male lying in bed in no distress. Respiratory system: Unlabored breathing, clear to auscultation anteriorly. Heart S1, S2. Regular rate and rhythm. Abdomen is soft, no tenderness. Legs are currently wrapped up. No obvious drainage on the dressing. DIAGNOSTIC IMPRESSION AND PLAN: Patient with left heel osteomyelitis. This patient was admitted to the hospital with bilateral extremity cellulitis. Overall cellulitis has improved. Recommend keeping the patient on cefepime and Flagyl for a total of 6 weeks. Local wound care with Medihoney to the left heel and Aquacel dressing to the legs. [facility]. Plan of care discussed with the surgeon. MMODL / IJN: [id number] /
[2020-02-09 19:51] LABS: % Iron Saturation 34.98 (15.00-50.00)
[2020-02-09 20:11] LABS: Ferritin 710.9 ng/mL (22.0-322.0)
[2020-02-09 20:27] LABS: Glucose,Whole Blood 49 mg/dL (75-99)
[2020-02-09 20:57] LABS: Glucose,Whole Blood 63 mg/dL (75-99)
[2020-02-09 21:07] LABS: Glucose,Whole Blood 66 mg/dL (75-99)
[2020-02-09 21:43] LABS: Glucose,Whole Blood 81 mg/dL (75-99)
[2020-02-09 22:35] LABS: Glucose,Whole Blood 94 mg/dL (75-99)
[2020-02-10 02:19] LABS: Glucose,Whole Blood 91 mg/dL (75-99)
[2020-02-10 07:16] LABS: Glucose,Whole Blood 76 mg/dL (75-99)
--- NOTE | 2020-02-10 07:26 | P.PN ---
Subjective Progress Note Date: 02/09/20 Principal diagnosis: Blood per rectum Patient is seen sitting in bed today with food tray in front. No complaints of abdominal pain. Somewhat confused. No reports of GI bleeding. Objective - Vital Signs Vital signs: Vital Signs Temp 97.6 F 02/09/20 14:04 Pulse 69 02/09/20 14:04 Resp 19 02/09/20 14:04 BP 142/87 02/09/20 14:04 Pulse Ox 98 02/09/20 14:04 Intake & Output 02/08/20 02/09/20 02/09/20 18:59 06:59 18:59 Intake Total 960 770 120 Output Total 1 Balance 960 769 120 Weight 136.5 kg Intake: IV 600 Sodium Chloride 0.9% 1, 600 000 ml @ 50 mls/hr IV . Q20H [facility] Rx#:[id number] Intake, IV Titration 650 Amount Cefepime 2 gm In Sodium 100 Chloride 0.9% 100 ml @ 25 mls/hr IVPB Q12H [facility] Rx# :[id number] Sodium Chloride 0.9% 1, 550 000 ml @ 50 mls/hr IV . Q20H [facility] Rx#:[id number] Oral 360 120 120 Output: Urine/Stool Mix 1 Other: Voiding Method Bedside Commode Bedside Commode Bedside Commode Incontinent Diaper Diaper Incontinent Incontinent # Voids 1 1 3 # Bowel Movements 1 - Exam On physical examination, patient appears comfortable in no apparent distress. HEAD: Normocephalic, atraumatic. EYES: No scleral icterus. No conjunctival injection. MOUTH: No lesions, tongue midline. NECK: Trachea midline, no gross abnormalities. ABDOMEN: Soft, obese, nontender to palpation. Bowel sounds are positive. No organomegaly. No guarding or rigidity. EXTREMITIES: No pedal edema. SKIN: No rashes, no jaundice. NEUROLOGIC: Alert and oriented to person. - Labs CBC & Chem 7: 02/09/20 07:46 02/09/20 07:46 Labs: Abnormal Lab Results - Last 24 Hours (Table) 02/08/20 02/08/20 02/08/20 Range/Units 16:52 17:43 20:37 RBC 2.59 L (4.30-5.90) m/uL Hgb 7.9 L (13.0-17.5) gm/dL Hct 27.5 L (39.0-53.0) % MCV 106.4 H (80.0-100.0) fL MCHC 28.8 L (31.0-37.0) g/dL RDW 17.3 H (11.5-15.5) % Macrocytosis Marked A Sodium (137-145) mmol/L Chloride (98-107) mmol/L Carbon Dioxide (22-30) mmol/L BUN (9-20) mg/dL Creatinine (0.66-1.25) mg/dL POC Glucose (mg/dL) 169 H 131 H (75-99) mg/dL Calcium (8.4-10.2) mg/dL 02/09/20 02/09/20 02/09/20 Range/Units 07:17 07:46 07:46 RBC 2.66 L (4.30-5.90) m/uL Hgb 8.2 L (13.0-17.5) gm/dL Hct 28.2 L (39.0-53.0) % MCV 105.8 H (80.0-100.0) fL MCHC 29.2 L (31.0-37.0) g/dL RDW 17.4 H (11.5-15.5) % Macrocytosis Marked A Sodium 136 L (137-145) mmol/L Chloride 114 H (98-107) mmol/L Carbon Dioxide 16 L (22-30) mmol/L BUN 64 H (9-20) mg/dL Creatinine 3.32 H (0.66-1.25) mg/dL POC Glucose (mg/dL) 101 H (75-99) mg/dL Calcium 7.6 L (8.4-10.2) mg/dL Microbiology - Last 24 Hours (Table) 02/02/20 12:14 Blood Culture - Final Blood No Growth after 144 hours Assessment and Plan (1) Blood per rectum Narrative/Plan: 49-year-old male presenting with lower extremity cellulitis currently on antibiotic therapy. GI was consulted for one episode of painless bright red blood per rectum. No prior colonoscopy reported. No prior history of GI bleed. The patient is anemic with a macrocytic anemia however this is likely anemia of chronic disease and has been stable since presentation. No further bleeding since that time. Suspicion is for hemorrhoidal disease, differential also includes diverticular disease, AVM, or other etiology. No further bleeding reported. Current Visit: Yes Status: Acute Code(s): K62.5 - HEMORRHAGE OF ANUS AND RECTUM SNOMED Code(s): 90989922 (2) Macrocytic anemia Current Visit: Yes Status: Acute Code(s): D53.9 - NUTRITIONAL ANEMIA, UNSPECIFIED SNOMED Code(s): 68525180 Plan: Supportive care Okay for diet Continue other medical management Continue monitor CBC, BMP, LFTs Hemorrhoidal care with hydrocortisone cream ordered Extensive discussion with the patient can follow up after discharge for outpatient colonoscopy, no prior screening colonoscopy reported Thank you for allowing us to participate in the care of the patient, the GI service will stand by, please call us back with any questions or concerns
[2020-02-10] MEDS: INSULIN ASPART (NovoLOG) 100 UNIT/ML VIAL SQ SCH ×4 (07:29→20:16)
[2020-02-10] MEDS: INSULN ASP PRT/INSULIN ASPART 100 UNIT/ML 10 ML VIAL SQ SCH ×2 (07:30→17:30)
[2020-02-10] MEDS: CEFEPIME 2 GM in SODIUM CHLORIDE 0.9% 100 ML IVPB SCH (09:36)
[2020-02-10] MEDS: FLUCONAZOLE IN NACL,ISO-OSM 200 MG in SALINE 1 100ML.BAG IVPB SCH (09:36)
[2020-02-10] MEDS: SODIUM BICARBONATE TAB 650 MG TAB PO SCH ×2 (09:36→20:26)
[2020-02-10] MEDS: PANTOPRAZOLE 40 MG TABLET PO SCH (09:36)
[2020-02-10] MEDS: HEPARIN SODIUM,PORCINE 5,000 UNIT/ML 1 ML VIAL SQ SCH ×2 (09:36→20:19)
[2020-02-10] MEDS: ASPIRIN 81 MG PO SCH (09:36)
[2020-02-10] MEDS: MULTIVITAMINS, THERA 1 EACH TAB PO SCH (09:36)
[2020-02-10] MEDS: HYDROcodone/APAP 5-325MG 1 EACH TAB PO PRN (09:42)
[2020-02-10 10:06] LABS: Glucose,Whole Blood 113 mg/dL (75-99)
[2020-02-10] MEDS ORDERED: IPRATROPIUM-ALBUTEROL 3 ML NEB INHALATION PRN (10:22)
--- NOTE | 2020-02-10 10:53 | XR ---
EXAMINATION TYPE: XR chest 1V portable DATE OF EXAM: 02/10/2020 COMPARISON: NONE HISTORY: Shortness of breath TECHNIQUE: Single frontal view of the chest is obtained. FINDINGS: Exam limited by poor inspiration and overlying soft tissue artifact. Subsegmental changes at both lung bases. There is a left-sided PICC line with the tip near the SVC. Heart is enlarged. Tin y bilateral effusion suspected. No pneumothorax. Correlate for mild interstitial pneumonitis or venou s congestion. IMPRESSION: 1. Bilateral tiny pleural effusions and basilar atelectasis or infiltrate. Correlate for mild interst itial pneumonitis or venous congestion.
--- NOTE | 2020-02-10 11:02 | P.PN ---
Subjective Patient is seen in follow-up for acute kidney injury. Creatinine 3.3 to as of yesterday. Remains edematous. Status post IV Lasix 60 mg yesterday. Currently on BiPAP. Has a Josue catheter. Nonoliguric. Vital signs are stable. General: The patient appeared well nourished and normally developed. HEENT: Head exam is unremarkable. Neck is without jugular venous distension. On BiPAP. LUNGS: Breath sounds decreased. HEART: Rate and Rhythm are regular. ABDOMEN: Soft, nontender. Obese. EXTREMITITES: Wrapped. 2+ edema. Objective - Vital Signs Vital signs: Vital Signs Temp 97.9 F 02/10/20 07:00 Pulse 78 02/10/20 07:10 Resp 18 02/10/20 07:10 BP 139/92 02/10/20 07:00 Pulse Ox 100 02/10/20 07:00 Intake & Output 02/09/20 02/10/20 02/10/20 18:59 06:59 18:59 Intake Total 120 550 Output Total 800 Balance 120 -250 Intake: Oral 120 550 Output: Urine 800 Other: Voiding Method Bedside Commode Indwelling Catheter Indwelling Catheter Diaper Incontinent # Voids 3 - Labs CBC & Chem 7: 02/09/20 07:46 02/09/20 07:46 Labs: Abnormal Lab Results - Last 24 Hours (Table) 02/09/20 02/09/20 02/09/20 Range/Units 07:46 15:36 15:38 POC Glucose (mg/dL) 38 L 39 L (75-99) mg/dL TIBC 203 L (228-460) ug/dL Ferritin 710.9 H (22.0-322.0) ng/mL 02/09/20 02/09/20 02/09/20 Range/Units 15:59 16:28 17:03 POC Glucose (mg/dL) 44 L 40 L 43 L (75-99) mg/dL TIBC (228-460) ug/dL Ferritin (22.0-322.0) ng/mL 02/09/20 02/09/20 02/09/20 Range/Units 17:26 20:19 20:50 POC Glucose (mg/dL) 106 H 49 L 63 L (75-99) mg/dL TIBC (228-460) ug/dL Ferritin (22.0-322.0) ng/mL 02/09/20 02/10/20 Range/Units 21:04 10:04 POC Glucose (mg/dL) 66 L 113 H (75-99) mg/dL TIBC (228-460) ug/dL Ferritin (22.0-322.0) ng/mL Assessment and Plan Plan: Assessment: 1. Acute kidney injury secondary to ATN secondary to infection. Creatinine 3.32 as of yesterday. Currently has Josue catheter. Baseline creatinine near 1. Patient was on hemodialysis in the past but the permacath was removed due to recovered renal function. No hydronephrosis noted on kidney ultrasound. 2. Left heel osteomyelitis maintained on antibiotics per infectious disease. Will need further debridement. 3. Insulin-dependent diabetes mellitus. 4. Volume overload. 5. History of MRSA pneumonia. 6. Metabolic acidosis secondary to acute kidney injury. Maintained on oral sodium bicarbonate. 7. Anemia. Iron replete. Maintained on Aranesp. Plan: Add Lasix 40 mg IV twice daily. Strict I's and O's. Continue to monitor renal function and urine output. Avoid nephrotoxins. Morning labs pending.
[2020-02-10 11:26] LABS: Glucose,Whole Blood 129 mg/dL (75-99)
[2020-02-10 11:33] LABS: Calcium 7.6 mg/dL (8.4-10.2); Magnesium 1.7 mg/dL (1.6-2.3)
[2020-02-10 11:38] LABS: Potassium 4.7 mmol/L (3.5-5.1)
[2020-02-10] MEDS: FUROSEMIDE 10 MG/ML 4 ML VIAL IV SCH ×2 (12:28→20:19)
[2020-02-10] MEDS: HYDROCORTISONE 2.5% RECTAL CREAM 30 GM TUBE RECTAL SCH ×2 (12:28→20:19)
[2020-02-10] MEDS: FOLIC ACID 1 MG TAB PO SCH (12:29)
[2020-02-10] MEDS: THIAMINE 100 MG TAB PO SCH (12:29)
[2020-02-10] MEDS: IPRATROPIUM-ALBUTEROL 3 ML NEB INHALATION SCH ×3 (13:43→19:51)
[2020-02-10 16:35] LABS: Glucose,Whole Blood 112 mg/dL (75-99)
--- NOTE | 2020-02-10 16:57 | PN ---
PROGRESS NOTE DATE OF SERVICE: 02/10/2020 REASON FOR FOLLOWUP: Left heel osteomyelitis, bilateral lower extremity cellulitis. INTERVAL HISTORY: The patient is currently afebrile. He did have slight respiratory status is currently on BiPAP. He is slightly sleepy, lethargic; was unable to provide a history. No vomiting or diarrhea reported by the nursing staff. PHYSICAL EXAMINATION: Blood pressure 139/92 with a pulse of 78, temperature 97.9. He is BiPAP. General description is a middle-aged male lying in bed in no distress. RESPIRATORY SYSTEM: Unlabored breathing with decreased breath sounds at the base. No wheeze. HEART: S1, S2. Regular rate and rhythm. ABDOMEN: Soft. No tenderness. LABS: BUN 70, creatinine 3.62. DIAGNOSTIC IMPRESSION AND PLAN: Patient with bilateral lower extremity cellulitis, also with left heel osteomyelitis, currently covered with cefepime and Flagyl. The patient did have worsening of his kidney function and is being monitored closely by Nephrology and admitting team. Local care to continue as ordered. Continue with supportive care. MMODL / IJN: [id number] /
--- NOTE | 2020-02-10 17:23 | P.PN ---
Subjective Progress Note Date: 02/09/20 Principal diagnosis: Bilateral LE cellulitis Mr. Lopez is a 49-year-old male with a past medical history of type 2 diabetes mellitus, sleep apnea, CHF, MRSA infection of the right shoulder coming in for worsening bilateral lower extremity cellulitis and heel ulcers. Patient was recently discharged from the hospital to extended care facility rehab but patient went home. Apparently he fell and was lying on the floor for almost 18 hours before he could get help. So the patient follow-up increasing cellulitis and blisters and was admitted to [facility] again. Patient was found to have hyperglycemia and a recent blood culture showed multiple organisms including anaerobic, Morganella, beta-hemolytic's, diphtheroids, alphahemolytic's and streptococci. Patient is currently on antibiotics in the form of cefepime and Flagyl. As the patient's culture was positive for Diann albicans he is also on fluconazole. The patient's vitals have been stable his temperature 97.4 blood pressure 154/79 saturating at 95% on room air. On reviewing his labs from 8 6 hemoglobin stable around 8.5. As per the nursing staff report there is increased swelling of his left upper extremity where he has a PICC line in place. Patient denied having any pain but thinks that his left hand is more swollen than the right hand. On 02/08/2020 - patient is sitting up in a chair by the bedside. As per the nursing staff report patient had a bloody bowel movement this morning. Initially it was few drops but later on there was a clot in the common by the be dside. Patient denied having any abdominal pain. He states that he didn't even notice that he had blood in his stool. Patient denied having any nausea or vomiting. No diarrhea. He denies having any fever, chills or rigors. Patient is not on any anticoagulation except for home dose of aspirin 81 mg and subcu heparin for DVT prophylaxis that was started in the hospital.patient denies having any shortness of breath or palpitations. He denies having any dizziness. He states that his tailbone hurts from sitting for too long on the chair. On reviewing his vitals patient'sT-max is 97.6, blood pressure 132/80, saturating at 95% on room air.on reviewing the labs from this morning his hemoglobin is 8. electrolytes from this morning showing sodium of 136, chloride of 113, bicarb of 16, B and 57 and creatinine trending up to 2.91. Patient also had a left upper extremity Doppler that was negative for DVT yesterday evening. On 02/08- Patient was lying in bed and the in flight technician is up at the bedside getting a renal ultrasound. Patient denied having any active c omplaints. On reviewing the patient's vitals his temperature 97.2, heart rate 79, respiratory rate 20, blood pressure 125/98, saturating at 96% on room air. Patient's labs have been reviewed, creatinine still trending up to 3.32 today. Nephrology on board. Active Medications Acetaminophen (Tylenol Tab) 650 mg PO Q8H PRN Hydrocodone Bitart/Acetaminophen ([place] 5-325) 1 each PO Q6HR PRN Alprazolam (Xanax) 0.25 mg PO TID PRN Aspirin (Aspirin) 81 mg PO DAILY [facility] Folic Acid (Folic Acid) 1 mg PO DAILY@1200 [facility] Heparin Sodium (Porcine) (Heparin) 5,000 unit SQ Q12HR [facility] Cefepime HCl 2 gm/ Sodium (Chloride) 100 mls @ 25 mls/hr IVPB Q12H [facility] Sodium Chloride (Saline 0.9%) 1,000 mls @ 75 mls/hr IV .[id number] [facility] Fluconazole/Sodium Chloride (200 mg/ IV Solution) 100 mls @ 100 mls/hr IVPB DAILY [facility] Insulin Aspart (Novolog) 0 unit SQ ACHS ANNEMARIE; Protocol Insulin Aspart (Novolog Mix 70-30 Vial) 30 unit SQ AC-SUPPER [facility] Insulin Aspart (Novolog Mix 70-30 Vial) 40 unit SQ AC-BRKFST [facility] Metronidazole (Flagyl) 500 mg PO Q8HR [facility] Multivitamins (Theragran) 1 each PO DAILY [facility] Naloxone HCl (Narcan) 0.2 mg IV Q2M PRN Pantoprazole Sodium (Protonix) 40 mg PO AC-BRKFST [facility] Silver Sulfadiazine (Silvadene Cream) 1 applic TOPICAL DAILY [facility] Thiamine HCl (Vitamin B-1) 100 mg PO DAILY@1200 [facility] Objective - Vital Signs Vital signs: Vital Signs Temp 97.4 F L 02/09/20 07:00 Pulse 74 02/09/20 07:00 Resp 19 02/09/20 07:00 BP 142/85 02/09/20 07:00 Pulse Ox 97 02/09/20 07:00 Intake & Output 02/08/20 02/09/20 02/09/20 18:59 06:59 18:59 Intake Total 960 770 120 Output Total 1 Balance 960 769 120 Weight 136.5 kg Intake: IV 600 Sodium Chloride 0.9% 1, 600 000 ml @ 75 mls/hr IV . [id number] [facility]IE Rx#:[id number] Intake, IV Titration 650 Amount Cefepime 2 gm In Sodium 100 Chloride 0.9% 100 ml @ 25 mls/hr IVPB Q12H ANN[facility]ARIE Rx# :[id number] Sodium Chloride 0.9% 1, 550 000 ml @ 75 mls/hr IV . [id number] [facility]IE Rx#:[id number] Oral 360 120 120 Output: Urine/Stool Mix 1 Other: Voiding Method Bedside Commode Bedside Commode Bedside Commode Incontinent Diaper Diaper Incontinent Incontinent # Voids 1 1 # Bowel Movements 1 - Exam PHYSICAL EXAM General appearance: alert, in no apparent distress Head exam: atraumatic, normocephalic, normal inspection Neck exam: short webbed neck Respiratory exam: decreased breath sounds on bilateral lower lung hameed Cardiovascular Exam:regular rate, normal rhythm, normal heart sounds. Extremities exam: bilateral LE wrapped in PEDRO banadage, I did not open them. Left Upper extremity - fingers are swollen and pitting edema note GENETIC ENGINEER: awake and alert - Labs CBC & Chem 7: 02/09/20 07:46 02/10/20 10:43 Labs: Abnormal Lab Results - Last 24 Hours (Table) 02/08/20 02/08/20 02/08/20 Range/Units 16:52 17:43 20:37 RBC 2.59 L (4.30-5.90) m/uL Hgb 7.9 L (13.0-17.5) gm/dL Hct 27.5 L (39.0-53.0) % MCV 106.4 H (80.0-100.0) fL MCHC 28.8 L (31.0-37.0) g/dL RDW 17.3 H (11.5-15.5) % Macrocytosis Marked A Sodium (137-145) mmol/L Chloride (98-107) mmol/L Carbon Dioxide (22-30) mmol/L BUN (9-20) mg/dL Creatinine (0.66-1.25) mg/dL POC Glucose (mg/dL) 169 H 131 H (75-99) mg/dL Calcium (8.4-10.2) mg/dL 02/09/20 02/09/20 02/09/20 Range/Units 07:17 07:46 07:46 RBC 2.66 L (4.30-5.90) m/uL Hgb 8.2 L (13.0-17.5) gm/dL Hct 28.2 L (39.0-53.0) % MCV 105.8 H (80.0-100.0) fL MCHC 29.2 L (31.0-37.0) g/dL RDW 17.4 H (11.5-15.5) % Macrocytosis Marked A Sodium 136 L (137-145) mmol/L Chloride 114 H (98-107) mmol/L Carbon Dioxide 16 L (22-30) mmol/L BUN 64 H (9-20) mg/dL Creatinine 3.32 H (0.66-1.25) mg/dL POC Glucose (mg/dL) 101 H (75-99) mg/dL Calcium 7.6 L (8.4-10.2) mg/dL Microbiology - Last 24 Hours (Table) 02/02/20 12:14 Blood Culture - Final Blood No Growth after 144 hours Assessment and Plan Assessment: ASSESSMENT Acute bilateral lower extremity cellulitis failed outpatient therapy Left heel diabetic ulcer, status post debridement Possible osteomyelitis of the left calcaneal bone Diann albicans from the wound culture Blood in the stool Microcytic anemia Type 2 diabetes mellitus poorly controlled with hyperglycemia Peripheral neuropathy CKD stage III Hyponatremia Hypoalbuminemia with mild protein calorie malnutrition Obstructive sleep apnea Possible obesity hypoventilation syndrome History of congestive heart failure with unknown ejection fraction History of MRSA of the right shoulder Degenerative joint disease Morbid obesity with BMI 47.1 PLAN: patient had one episode of blood clot in the stool yesterday . GI, Dr. Hills has seen him and said no avute intervention needed now. Nephrology on board and he is getting a renal US now. Continue the patient on IV antibiotics in the form of cefepime and Flagyl. Has a cultures are growing Diann albicans he was started on fluconazole which will be continued. Vascular surgery Dr. Hernández and FRANCINE Ohara on board and following the patient closely. Patient has been started on BiPAP last night due to concerns of obesity hypoventilation syndrome. His left upper extremity Doppler has been negative for DVT. Continue with current medication regimen. Further recommendations to follow depending on the progress of the patient. Overall prognosis is guarded.
--- NOTE | 2020-02-10 17:32 | P.CNNES ---
History of Present Illness Consult date: 02/10/20 Requesting physician: Viola Montez History of Present Illness: This is a 49-year-old gentleman with a medical history of diabetes, congestive heart failure, sleep apnea, acute kidney injury about 2 months ago due to septic acute tubular necrosis, cellulitis of bilater lower extremities s/p debridement of left heel on 01/26/20 who was admitted to the hospital on 02/02/2020 for complaints of lower extremity redness and pain patient is being treated for bilateral lower extremity cellulitis and also ulceration of the heels. Patient the he was discharged on IV antibiotics but noticed blistering with worsening of erythema fever chills and came back to the hospital. He has a history of long-standing diabetes. He has not been compliant with his medication as outpatient. Per nursing staff they are not sure when patient was last normal but possibly on 02/08/20 and not sure what time. On 02/09/20 the day time nurse received a sign out that patient was only oriented X1 otherwise not responding verbally. Upon medical team seeing the patient they stated the patient is not himself and is more talkative and they felt last normal was on 02/09/20 in morning and by afternoon he was different. Stroke code was activated. Patient had CT of the head for a code stroke for altered mental status and difficulty with speech on the 02/09/2020 and was reported as no acute intracranial hemorrhage or midline shift. There is a mild diffuse cerebral atrophy and moderate chronic small vessel ischemic changes noted. Possible left greater than right mastoiditis, correlate clinically. Upon seeing the patient he was in pain but the only verbal words he was saying was "Oh my God". Otherwise not verbalizing. Most recent labs is the sodium was 137 area and the BUN/creatinine is 70 over 3.62. On presentation patient's creatinine on 02/02/2020 was 1.90. Calcium of 7.6 White blood cell the latest one is 8.6 Initial AST was 86 and the last AST was 27 (02/08/2020). ALT 16. Latest chest x-ray on 02/10/2020 was reported as bilateral tiny pleural effusion and basilar atelectasis or infiltrate. Correlate for mild interstitial pneumonitis or venous congestion. Patient is currently on aspirin 81 mg, thiamine 100 mg daily and folic acid 1mg daily. Patient is currently on cefepime 1 g every 12 hours. Review of Systems Review of system: The 12 point system was reviewed and apparent positive and negative per HPI. Past Medical History Past Medical History: Diabetes Mellitus, Sleep Apnea/CPAP/BIPAP Additional Past Medical History / Comment(s): CHF, neuropathy History of Any Multi-Drug Resistant Organisms: MRSA Date of last positivie culture/infection: 2004 MDRO Source:: Rt shoulder Past Surgical History: Orthopedic Surgery Additional Past Surgical History / Comment(s): carpal tunnel in right wrist, MRSA infection drain in right shoulder Past Anesthesia/Blood Transfusion Reactions: No Reported Reaction Past Psychological History: No Psychological Hx Reported Smoking Status: Never smoker Past Alcohol Use History: None Reported, Unable to Obtain Past Drug Use History: None Reported - Past Family History Father Family Medical History: Cancer Sister(s) Family Medical History: Cancer Additional Family Medical History / Comment(s): cervical cancer Brother(s) Family Medical History: Liver Disease Additional Family Medical History / Comment(s): from liver cirrhosis. another brother has throat cancer Medications and Allergies Home Medications Medication Instructions Recorded Confirmed Type Aspirin [[place] Aspirin EC] 81 mg PO DAILY 01/24/20 02/02/20 History Multivitamins, Thera [Multivitamin 1 tab PO DAILY 01/24/20 02/02/20 History (formulary)] Famotidine [Pepcid] 20 mg PO Q12HR 30 Days #60 tab 01/30/20 02/02/20 Rx Insuln Asp Prt/Insulin Aspart 35 unit SQ AC-SUPPER 30 Days #3 01/30/20 02/02/20 Rx [NovoLOG MIX 70-30 VIAL] vial Insuln Asp Prt/Insulin Aspart 50 unit SQ AC-BRKFST 30 Days #3 01/30/20 02/02/20 Rx [NovoLOG MIX 70-30 VIAL] vial metroNIDAZOLE [Flagyl] 500 mg PO Q8HR #90 tab 01/30/20 02/02/20 Rx Acetaminophen [Tylenol] 650 mg PO Q8H PRN 02/02/20 02/02/20 History Allergies Allergy/AdvReac Type Severity Reaction Status Date / Time Penicillins Allergy Swelling Verified 02/02/20 12:35 Sulfa (Sulfonamide Allergy Unknown Verified 02/02/20 12:35 Antibiotics) Physical Examination - Vital Signs Vital Signs: Vital Signs Temp Pulse Pulse Resp BP Pulse Ox 02/10/20 16:10 82 02/10/20 16:03 80 02/10/20 14:24 97.2 F L 79 20 125/90 96 02/10/20 07:10 78 18 02/10/20 07:00 97.9 F 78 18 139/92 100 02/10/20 03:17 97.5 F L 78 18 137/84 99 02/09/20 19:35 97.5 F L 71 18 126/87 98 Intake and Output 02/10/20 02/10/20 02/10/20 06:59 14:59 22:59 Intake Total 700 Output Total 800 Balance -800 700 Intake: Intake, IV Titration 450 Amount Cefepime 1 gm In Sodium 50 Chloride 0.9% 50 ml @ 12. 5 mls/hr IVPB Q12HR [facility]IE Rx#:[id number] Dextrose 5% in Water 1, 300 000 ml @ 50 mls/hr IV . Q23H ANNEMARIE with Sodium Bicarb (1 Meq/ml) 150 ml Rx#:[id number] Fluconazole in NaCl,Iso- 100 Osm 200 mg In Saline 1 100ml.bag @ 100 mls/hr IVPB DAILY ANNEMARIE Rx#: [id number] Oral 250 Output: Urine 800 Other: Voiding Method Indwelling Catheter Indwelling Catheter GENERAL: The patient is lying in bed and is in moderate to severe distress. CHEST: The heart rate is regular rate rhythm. No murmurs to auscultation. LUNG: Clear to auscultation bilaterally no wheezing noted throughout. Not labored breathing. ABDOMEN/GI: Bowel sounds present in all 4 quadrants. No tenderness to palpation throughout. NEUROLOGICAL: Limited because of patient condition. Higher mental function: The patient is awake and not responding to any questions or following command. Global aphasia. Cranial nerves: The pupils are round, equal (3mm) and reactive to light Visual hameed are full to threat. Extraocular movement he is tracting throughout room. Faical sensation could not assess. No facial weakness noted on either side. Motor: Gait is defered. The strength could not assess because of his pain. He raised right upper extremity spontaneously and touch nose. Mild movement of left upper extremity 1-2. No movement of bilateral lower extremity and with painful stimuli no movement seen. Normal bulk. Sensation: Could not assess because of condition but seems to have intact painful stimuli throughout. Reflexes (right/left): 2+ throughout bilateral upper extremities. Could not assess lower because of patient pain and had wrapping around from his underlying infection. Plantar: Unable to assess. NIH Stroke Scale Score: Level of consciousness: 0 LOC questions: 2 LOC commands:2 Best gaze:0 Visual hameed:0 Facial palsy:0 Left motor arm:3 Right motor arm:0 Left motor le (cellulitis) Right motor le (cellulitis) Limb ataxia: Undetermined Sensory:0 Best language:3 Dysarthria:0 Extinction and inattention:0 Total NIHSS score: 18 Results CRP of 71.9 on 02/02/2020. Albumin 2.2 (02/08/20). Wound culture showed darcie albicans on 02/02/20. Blood culture no growth. - Laboratory Findings CBC and BMP: 02/09/20 07:46 02/10/20 10:43 Abnormal Lab Findings: Abnormal Labs 02/02/20 02/02/20 02/02/20 12:39 12:39 12:39 RBC 2.71 L Hgb 8.2 L Hct 28.3 L MCV 104.4 H MCHC 29.1 L RDW Lymphocytes # (Manual) Metamyelocytes # (Man) Myelocytes # (Manual) Nucleated RBCs Macrocytosis PT 13.2 H INR 1.3 H APTT 30.2 H Sodium 134 L Chloride Carbon Dioxide 15 L BUN 31 H Creatinine 1.90 H Glucose 461 H POC Glucose (mg/dL) Plasma Lactic Acid Guille Calcium 8.0 L TIBC Ferritin AST 86 H Alkaline Phosphatase 549 H C-Reactive Protein 71.9 H Albumin 2.3 L 02/02/20 02/02/20 02/02/20 13:01 13:52 15:42 RBC Hgb Hct MCV MCHC RDW Lymphocytes # (Manual) Metamyelocytes # (Man) Myelocytes # (Manual) Nucleated RBCs Macrocytosis PT INR APTT Sodium Chloride Carbon Dioxide BUN Creatinine Glucose POC Glucose (mg/dL) 472 H Plasma Lactic Acid Guille 5.4 H* 4.0 H* Calcium TIBC Ferritin AST Alkaline Phosphatase C-Reactive Protein Albumin 02/02/20 02/02/20 02/02/20 16:41 18:12 20:19 RBC Hgb Hct MCV MCHC RDW Lymphocytes # (Manual) Metamyelocytes # (Man) Myelocytes # (Manual) Nucleated RBCs Macrocytosis PT INR APTT Sodium Chloride Carbon Dioxide BUN Creatinine Glucose POC Glucose (mg/dL) 384 H 397 H Plasma Lactic Acid Guille 2.6 H* Calcium TIBC Ferritin AST Alkaline Phosphatase C-Reactive Protein Albumin 02/02/20 02/03/20 02/03/20 21:04 05:36 05:36 RBC 2.65 L Hgb 7.8 L Hct 27.3 L MCV 103.0 H MCHC 28.7 L RDW Lymphocytes # (Manual) Metamyelocytes # (Man) Myelocytes # (Manual) Nucleated RBCs Macrocytosis PT INR APTT Sodium Chloride 112 H Carbon Dioxide 19 L BUN 30 H Creatinine 1.79 H Glucose 160 H POC Glucose (mg/dL) Plasma Lactic Acid Guille 3.2 H* Calcium 7.4 L TIBC Ferritin AST Alkaline Phosphatase C-Reactive Protein Albumin 02/03/20 02/03/20 02/03/20 06:04 08:15 11:40 RBC Hgb Hct MCV MCHC RDW Lymphocytes # (Manual) Metamyelocytes # (Man) Myelocytes # (Manual) Nucleated RBCs Macrocytosis PT INR APTT Sodium Chloride Carbon Dioxide BUN Creatinine Glucose POC Glucose (mg/dL) 176 H 178 H 150 H Plasma Lactic Acid Guille Calcium TIBC Ferritin AST Alkaline Phosphatase C-Reactive Protein Albumin 02/03/20 02/03/20 02/03/20 16:37 17:33 20:23 RBC Hgb Hct MCV MCHC RDW Lymphocytes # (Manual) Metamyelocytes # (Man) Myelocytes # (Manual) Nucleated RBCs Macrocytosis PT INR APTT Sodium Chloride Carbon Dioxide BUN Creatinine Glucose POC Glucose (mg/dL) 126 H 130 H 128 H Plasma Lactic Acid Guille Calcium TIBC Ferritin AST Alkaline Phosphatase C-Reactive Protein Albumin 02/04/20 02/04/20 02/04/20 05:57 05:57 06:08 RBC 2.74 L Hgb 8.3 L Hct 28.5 L MCV 104.1 H MCHC 29.0 L RDW Lymphocytes # (Manual) Metamyelocytes # (Man) Myelocytes # (Manual) Nucleated RBCs Macrocytosis PT INR APTT Sodium Chloride 114 H Carbon Dioxide 19 L BUN 31 H Creatinine 1.98 H Glucose 105 H POC Glucose (mg/dL) 104 H Plasma Lactic Acid Guille Calcium 7.5 L TIBC Ferritin AST Alkaline Phosphatase C-Reactive Protein Albumin 02/04/20 02/04/20 02/04/20 08:35 11:30 16:58 RBC Hgb Hct MCV MCHC RDW Lymphocytes # (Manual) Metamyelocytes # (Man) Myelocytes # (Manual) Nucleated RBCs Macrocytosis PT INR APTT Sodium Chloride Carbon Dioxide BUN Creatinine Glucose POC Glucose (mg/dL) 130 H 199 H 185 H Plasma Lactic Acid Guille Calcium TIBC Ferritin AST Alkaline Phosphatase C-Reactive Protein Albumin 02/04/20 02/05/20 02/05/20 20:08 07:28 07:37 RBC 2.81 L Hgb 8.5 L Hct 29.8 L MCV 106.0 H MCHC 28.7 L RDW 15.6 H Lymphocytes # (Manual) Metamyelocytes # (Man) Myelocytes # (Manual) Nucleated RBCs Macrocytosis PT INR APTT Sodium Chloride Carbon Dioxide BUN Creatinine Glucose POC Glucose (mg/dL) 161 H 124 H Plasma Lactic Acid Guille Calcium TIBC Ferritin AST Alkaline Phosphatase C-Reactive Protein Albumin 02/05/20 02/05/20 02/05/20 07:37 11:48 17:02 RBC Hgb Hct MCV MCHC RDW Lymphocytes # (Manual) Metamyelocytes # (Man) Myelocytes # (Manual) Nucleated RBCs Macrocytosis PT INR APTT Sodium Chloride 113 H Carbon Dioxide 18 L BUN 40 H Creatinine 2.13 H Glucose 116 H POC Glucose (mg/dL) 125 H 134 H Plasma Lactic Acid Guille Calcium 7.6 L TIBC Ferritin AST Alkaline Phosphatase C-Reactive Protein Albumin 02/05/20 02/06/20 02/06/20 19:50 11:39 16:41 RBC Hgb Hct MCV MCHC RDW Lymphocytes # (Manual) Metamyelocytes # (Man) Myelocytes # (Manual) Nucleated RBCs Macrocytosis PT INR APTT Sodium Chloride Carbon Dioxide BUN Creatinine Glucose POC Glucose (mg/dL) 179 H 73 L 112 H Plasma Lactic Acid Guille Calcium TIBC Ferritin AST Alkaline Phosphatase C-Reactive Protein Albumin 02/06/20 02/07/20 02/07/20 20:20 06:48 11:15 RBC Hgb Hct MCV MCHC RDW Lymphocytes # (Manual) Metamyelocytes # (Man) Myelocytes # (Manual) Nucleated RBCs Macrocytosis PT INR APTT Sodium Chloride Carbon Dioxide BUN Creatinine Glucose POC Glucose (mg/dL) 131 H 109 H 54 L Plasma Lactic Acid Guille Calcium TIBC Ferritin AST Alkaline Phosphatase C-Reactive Protein Albumin 02/07/20 02/07/20 02/07/20 11:28 11:30 11:43 RBC Hgb Hct MCV MCHC RDW Lymphocytes # (Manual) Metamyelocytes # (Man) Myelocytes # (Manual) Nucleated RBCs Macrocytosis PT INR APTT Sodium Chloride Carbon Dioxide BUN Creatinine Glucose POC Glucose (mg/dL) 55 L 50 L 61 L Plasma Lactic Acid Guille Calcium TIBC Ferritin AST Alkaline Phosphatase C-Reactive Protein Albumin 02/07/20 02/08/20 02/08/20 12:00 06:44 06:53 RBC 2.69 L Hgb 8.0 L Hct 29.1 L MCV 107.9 H MCHC 27.5 L RDW 17.2 H Lymphocytes # (Manual) 0.83 L Metamyelocytes # (Man) 0.06 H Myelocytes # (Manual) 0.06 H Nucleated RBCs 1 H Macrocytosis Marked A PT INR APTT Sodium Chloride Carbon Dioxide BUN Creatinine Glucose POC Glucose (mg/dL) 70 L 129 H Plasma Lactic Acid Guille Calcium TIBC Ferritin AST Alkaline Phosphatase C-Reactive Protein Albumin 02/08/20 02/08/20 02/08/20 06:53 11:13 16:52 RBC Hgb Hct MCV MCHC RDW Lymphocytes # (Manual) Metamyelocytes # (Man) Myelocytes # (Manual) Nucleated RBCs Macrocytosis PT INR APTT Sodium 136 L Chloride 113 H Carbon Dioxide 16 L BUN 57 H Creatinine 2.91 H Glucose POC Glucose (mg/dL) 151 H 169 H Plasma Lactic Acid Guille Calcium 7.5 L TIBC Ferritin AST Alkaline Phosphatase 296 H C-Reactive Protein Albumin 2.2 L 02/08/20 02/08/20 02/09/20 17:43 20:37 07:17 RBC 2.59 L Hgb 7.9 L Hct 27.5 L MCV 106.4 H MCHC 28.8 L RDW 17.3 H Lymphocytes # (Manual) Metamyelocytes # (Man) Myelocytes # (Manual) Nucleated RBCs Macrocytosis Marked A PT INR APTT Sodium Chloride Carbon Dioxide BUN Creatinine Glucose POC Glucose (mg/dL) 131 H 101 H Plasma Lactic Acid Guille Calcium TIBC Ferritin AST Alkaline Phosphatase C-Reactive Protein Albumin 02/09/20 02/09/20 02/09/20 07:46 07:46 07:46 RBC 2.66 L Hgb 8.2 L Hct 28.2 L MCV 105.8 H MCHC 29.2 L RDW 17.4 H Lymphocytes # (Manual) Metamyelocytes # (Man) Myelocytes # (Manual) Nucleated RBCs Macrocytosis Marked A PT INR APTT Sodium 136 L Chloride 114 H Carbon Dioxide 16 L BUN 64 H Creatinine 3.32 H Glucose POC Glucose (mg/dL) Plasma Lactic Acid Guille Calcium 7.6 L TIBC 203 L Ferritin 710.9 H AST Alkaline Phosphatase C-Reactive Protein Albumin 02/09/20 02/09/20 02/09/20 15:36 15:38 15:59 RBC Hgb Hct MCV MCHC RDW Lymphocytes # (Manual) Metamyelocytes # (Man) Myelocytes # (Manual) Nucleated RBCs Macrocytosis PT INR APTT Sodium Chloride Carbon Dioxide BUN Creatinine Glucose POC Glucose (mg/dL) 38 L 39 L 44 L Plasma Lactic Acid Guille Calcium TIBC Ferritin AST Alkaline Phosphatase C-Reactive Protein Albumin 02/09/20 02/09/20 02/09/20 16:28 17:03 17:26 RBC Hgb Hct MCV MCHC RDW Lymphocytes # (Manual) Metamyelocytes # (Man) Myelocytes # (Manual) Nucleated RBCs Macrocytosis PT INR APTT Sodium Chloride Carbon Dioxide BUN Creatinine Glucose POC Glucose (mg/dL) 40 L 43 L 106 H Plasma Lactic Acid Guille Calcium TIBC Ferritin AST Alkaline Phosphatase C-Reactive Protein Albumin 02/09/20 02/09/20 02/09/20 20:19 20:50 21:04 RBC Hgb Hct MCV MCHC RDW Lymphocytes # (Manual) Metamyelocytes # (Man) Myelocytes # (Manual) Nucleated RBCs Macrocytosis PT INR APTT Sodium Chloride Carbon Dioxide BUN Creatinine Glucose POC Glucose (mg/dL) 49 L 63 L 66 L Plasma Lactic Acid Guille Calcium TIBC Ferritin AST Alkaline Phosphatase C-Reactive Protein Albumin 02/10/20 02/10/20 02/10/20 10:04 10:43 11:25 RBC Hgb Hct MCV MCHC RDW Lymphocytes # (Manual) Metamyelocytes # (Man) Myelocytes # (Manual) Nucleated RBCs Macrocytosis PT INR APTT Sodium Chloride 116 H Carbon Dioxide 13 L BUN 70 H Creatinine 3.62 H Glucose POC Glucose (mg/dL) 113 H 129 H Plasma Lactic Acid Guille Calcium 7.6 L TIBC Ferritin AST Alkaline Phosphatase C-Reactive Protein Albumin Assessment and Plan Assessment: Global Aphasia and not moving the left upper extremity compared to right upper extremity seems possibly like a stroke. 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 Patient cannot get MRI Brain because of body habitus. Order Carotid duplex Ordered 2Decho, lipid profile, TSH. Recommend PT/OT consultation, cardiac monitoring. Patient is currently on ASA 81mg and started him on Lipitor 40mg daily. If possible recommend switching the from ceftriaxone or cephalosporin to an alternate antibiotic since it causes encephalopathy. We'll defer the antibiotic management to the ID team. Ordered ammonia level and TSH level. Thanks for the consultation Cristian Brown MD Neuro-hospitalist. Time with Patient: Greater than 30
--- NOTE | 2020-02-10 18:11 | CT ---
EXAMINATION TYPE: CT brain wo con DATE OF EXAM: 02/10/2020 COMPARISON: CT dated 02/09/2020 HISTORY: Altered mental status. CT DLP: 2064.2 mGycm Automated exposure control for dose reduction was used. Helical acquisition through the brain. FINDINGS: There is some motion on exam. Periventricular white matter shows patchy low attenuation, low-attenuat ion present along the insular cortex on the right, there is loss of insular ribbon as on prior exam. No hemorrhage or hydrocephalus. Posterior fossa shows a stable appearance. Calvarium is intact. Orbit s show symmetric appearance. IMPRESSION: NONSPECIFIC LOW-ATTENUATION MAY BE DUE TO CHRONIC SMALL VESSEL ISCHEMIC CHANGE ESPECIALLY ALONG THE R IGHT INSULAR CORTEX. MRI MAY BE OF BENEFIT. NO NEW FINDINGS COMPARED TO PRIOR EXAM.
--- NOTE | 2020-02-10 18:47 | US ---
EXAMINATION TYPE: US carotid duplex BILAT DATE OF EXAM: 02/10/2020 COMPARISON: CT CLINICAL HISTORY: stroke. Patient unable to respond to technologist's questions as appeared sedated a nd on oxygen. US exam is technically limited by thick neck and unable to respond to commands to turn neck. EXAM MEASUREMENTS: RIGHT: Peak Systolic Velocity (PSV) cm/sec ----- Right CCA: 67.7 ----- Right ICA: 91.2 ----- Right ECA: 52.0 ICA/CCA ratio: 1.3 RIGHT: End Diastole cm/sec ----- Right CCA: 28.6 ----- Right ICA: 26.0 ----- Right ECA: 0.0 LEFT: Peak Systolic Velocity (PSV) cm/sec ----- Left CCA: 78.1 ----- Left ICA: 67.7 ----- Left ECA: 66.4 ICA/CCA ratio: 0.9 LEFT: End Diastole cm/sec ----- Left CCA: 29.9 ----- Left ICA: 29.9 ----- Left ECA: 12.9 VERTEBRALS (direction of flow): Right Vertebral: Antegrade Left Vertebral: Antegrade Rhythm: Normal Moderate mixed wall plaque in Right CCA distally, and Right ICA and ECA proximally; mild wall changes noted Left carotid system, but PSV is wnl bilaterally. Grayscale, color Doppler, spectral Doppler im aging performed of the carotid arteries. Waveform analysis does not show significant stenosis of the internal carotid arteries. IMPRESSION: No hemodynamic significant stenosis of the proximal internal carotid arteries by Doppler criteria, an indirect measurement of carotid stenosis
[2020-02-10 18:53] LABS: T4, Free (Free Thyroxine) 0.29 ng/dL (0.78-2.19)
[2020-02-10] MEDS: SODIUM CHLORIDE 0.9% 1,000 ML IV SCH (19:22)
[2020-02-10] MEDS: ATORVASTATIN 40 MG TAB PO SCH (19:23)
[2020-02-10] MEDS: DEXTROSE 5% IN WATER 1,000 ML with SODIUM BICARB (1 MEQ/ML) 150 ML IV SCH (19:23)
[2020-02-10 20:14] LABS: Glucose,Whole Blood 108 mg/dL (75-99)
[2020-02-10] MEDS: CEFEPIME 1 GM in SODIUM CHLORIDE 0.9% 50 ML IVPB SCH (20:19)
[2020-02-11] MEDS: IPRATROPIUM-ALBUTEROL 3 ML NEB INHALATION SCH ×4 (07:36→19:26)
[2020-02-11 07:50] LABS: Glucose,Whole Blood 169 mg/dL (75-99)
[2020-02-11 09:46] LABS: Calcium 7.8 mg/dL (8.4-10.2); Magnesium 1.7 mg/dL (1.6-2.3)
[2020-02-11 09:53] LABS: Potassium 5.2 mmol/L (3.5-5.1)
[2020-02-11] MEDS: CEFEPIME 1 GM in SODIUM CHLORIDE 0.9% 50 ML IVPB SCH ×2 (10:36→20:59)
[2020-02-11] MEDS: SODIUM BICARBONATE TAB 650 MG TAB PO SCH (10:37)
[2020-02-11] MEDS: ATORVASTATIN 40 MG TAB PO SCH (10:37)
[2020-02-11] MEDS: PANTOPRAZOLE 40 MG TABLET PO SCH (10:37)
[2020-02-11] MEDS: ASPIRIN 81 MG PO SCH (10:37)
[2020-02-11] MEDS: FLUCONAZOLE IN NACL,ISO-OSM 200 MG in SALINE 1 100ML.BAG IVPB SCH (10:37)
[2020-02-11] MEDS: FUROSEMIDE 10 MG/ML 4 ML VIAL IV SCH ×2 (10:37→20:23)
[2020-02-11] MEDS: MULTIVITAMINS, THERA 1 EACH TAB PO SCH (10:37)
[2020-02-11] MEDS: INSULIN ASPART (NovoLOG) 100 UNIT/ML VIAL SQ SCH ×4 (10:38→20:19)
[2020-02-11] MEDS: INSULN ASP PRT/INSULIN ASPART 100 UNIT/ML 10 ML VIAL SQ SCH ×2 (10:38→19:55)
[2020-02-11] MEDS: HEPARIN SODIUM,PORCINE 5,000 UNIT/ML 1 ML VIAL SQ SCH ×2 (10:38→20:23)
[2020-02-11] MEDS: HYDROCORTISONE 2.5% RECTAL CREAM 30 GM TUBE RECTAL SCH ×2 (10:39→20:24)
[2020-02-11 11:06] LABS: ABG Base Excess -14.5 mmol/L; ABG HCO3 14 mmol/L (21-25); ABG Oxygen Saturation 80.3 % (94-97); ABG PCO2 36 mmHg (35-45); ABG TCO2 15 mmol/L (19-24); Allen Test Performed? Yes
[2020-02-11 11:07] LABS: ABG PH 7.19 (7.35-7.45); ABG PO2 53 mmHg (83-108)
--- NOTE | 2020-02-11 11:16 | P.PN ---
Subjective Patient is seen in follow-up for acute kidney injury. Renal function continues to worsen. Creatinine 3.99 today. Remains edematous. Maintained on IV Lasix. Currently on BiPAP. Has a Josue catheter. Nonoliguric. Blood in the catheter tube was noted this morning. Patient somewhat lethargic. Vital signs are stable. General: The patient appeared well nourished and normally developed. HEENT: Head exam is unremarkable. Neck is without jugular venous distension. On BiPAP. LUNGS: Breath sounds decreased. HEART: Rate and Rhythm are regular. ABDOMEN: Soft, nontender. Obese. EXTREMITITES: Wrapped. 2+ edema. Objective - Vital Signs Vital signs: Vital Signs Temp 98.7 F 02/11/20 07:00 Pulse 82 02/11/20 07:49 Resp 18 02/11/20 07:49 BP 141/83 02/11/20 07:00 Pulse Ox 94 L 02/11/20 07:00 Intake & Output 02/10/20 02/11/20 02/11/20 18:59 06:59 18:59 Intake Total 700 450 Output Total 1525 Balance 700 -1075 Intake: Intake, IV Titration 450 450 Amount Cefepime 1 gm In Sodium 50 50 Chloride 0.9% 50 ml @ 12. 5 mls/hr IVPB Q12HR ANN[facility]IE Rx#:[id number] Dextrose 5% in Water 1, 300 400 000 ml @ 50 mls/hr IV . Q23H ANNEMARIE with Sodium Bicarb (1 Meq/ml) 150 ml Rx#:[id number] Fluconazole in NaCl,Iso- 100 Osm 200 mg In Saline 1 100ml.bag @ 100 mls/hr IVPB DAILY ANNEMARIE Rx#: [id number] Oral 250 Output: Urine 1525 Other: Voiding Method Indwelling Catheter Indwelling Catheter - Labs CBC & Chem 7: 02/09/20 07:46 02/11/20 08:37 Labs: Abnormal Lab Results - Last 24 Hours (Table) 02/10/20 02/10/20 02/10/20 Range/Units 10:43 11:25 16:35 ABG pH (7.35-7.45) ABG pO2 (83-108) mmHg ABG HCO3 (21-25) mmol/L ABG Total CO2 (19-24) mmol/L ABG O2 Saturation (94-97) % Potassium (3.5-5.1) mmol/L Chloride 116 H (98-107) mmol/L Carbon Dioxide 13 L (22-30) mmol/L BUN 70 H (9-20) mg/dL Creatinine 3.62 H (0.66-1.25) mg/dL Glucose (74-99) mg/dL POC Glucose (mg/dL) 129 H 112 H (75-99) mg/dL Calcium 7.6 L (8.4-10.2) mg/dL LDL Cholesterol, Calc (0-99) mg/dL HDL Cholesterol (40-60) mg/dL TSH (0.465-4.680) mIU/L Free T4 (0.78-2.19) ng/dL 02/10/20 02/10/20 02/11/20 Range/Units 16:51 20:12 07:11 ABG pH (7.35-7.45) ABG pO2 (83-108) mmHg ABG HCO3 (21-25) mmol/L ABG Total CO2 (19-24) mmol/L ABG O2 Saturation (94-97) % Potassium (3.5-5.1) mmol/L Chloride (98-107) mmol/L Carbon Dioxide (22-30) mmol/L BUN (9-20) mg/dL Creatinine (0.66-1.25) mg/dL Glucose (74-99) mg/dL POC Glucose (mg/dL) 108 H 169 H (75-99) mg/dL Calcium (8.4-10.2) mg/dL LDL Cholesterol, Calc (0-99) mg/dL HDL Cholesterol (40-60) mg/dL TSH 83.600 H (0.465-4.680) mIU/L Free T4 0.29 L (0.78-2.19) ng/dL 02/11/20 02/11/20 Range/Units 08:37 11:01 ABG pH 7.19 L* (7.35-7.45) ABG pO2 53 L* (83-108) mmHg ABG HCO3 14 L (21-25) mmol/L ABG Total CO2 15 L (19-24) mmol/L ABG O2 Saturation 80.3 L (94-97) % Potassium 5.2 H (3.5-5.1) mmol/L Chloride 116 H (98-107) mmol/L Carbon Dioxide 12 L (22-30) mmol/L BUN 73 H (9-20) mg/dL Creatinine 3.99 H (0.66-1.25) mg/dL Glucose 140 H (74-99) mg/dL POC Glucose (mg/dL) (75-99) mg/dL Calcium 7.8 L (8.4-10.2) mg/dL LDL Cholesterol, Calc 107 H (0-99) mg/dL HDL Cholesterol 16 L (40-60) mg/dL TSH (0.465-4.680) mIU/L Free T4 (0.78-2.19) ng/dL Assessment and Plan Plan: Assessment: 1. Acute kidney injury secondary to ATN secondary to infection. Creatinine 3.99 today. Currently has Josue catheter. Baseline creatinine near 1. Patient was on hemodialysis in the past but the permacath was removed due to recovered renal function. No hydronephrosis noted on kidney ultrasound. 2. Left heel osteomyelitis maintained on antibiotics per infectious disease. Will need further debridement. 3. Insulin-dependent diabetes mellitus. 4. Volume overload. 5. History of MRSA pneumonia. 6. Metabolic acidosis secondary to acute kidney injury. Maintained on oral sodium bicarbonate. 7. Anemia. Iron replete. Maintained on Aranesp. 8. Hematuria. Likely traumatic from Josue catheter placement. If persistent, will consult urology. 9. Acute hypoxic respiratory failure. Patient will be transferred to the intensive care unit. Plan: Maintain Lasix 40 mg IV twice daily. Increase bicarb drip to be run at 70 mL an hour. Increase dose of oral sodium bicarbonate dose. Strict I's and O's. Continue to monitor renal function and urine output. Avoid nephrotoxins. Follow-up chest x-ray and echocardiogram. Check urinalysis.
[2020-02-11] MEDS ORDERED: SODIUM BICARB 8.4% 50 ML SYR (1 MEQ/ML) IV STA ×2 (11:18→11:19)
--- NOTE | 2020-02-11 11:26 | XR ---
EXAMINATION TYPE: XR chest 1V portable DATE OF EXAM: 02/11/2020 COMPARISON: Prior chest x-ray 02/10/2020 HISTORY: Shortness of breath TECHNIQUE: Single frontal view of the chest is obtained. FINDINGS: Perihilar airspace disease is present. The heart is enlarged. No evident pneumothorax or p leural effusion. There is a left-sided PICC line in place. Distal tip is overlying the innominate vei n. Central vascularity appears prominently. IMPRESSION: Correlate for congestive heart failure, pneumonia not excluded.
[2020-02-11] MEDS ORDERED: LEVOTHYROXINE IVP 100 MCG/5 ML VIAL IV ONE (11:30)
--- NOTE | 2020-02-11 12:01 | ECHOF ---
Referral Reason:stroke MEASUREMENTS -------- HEIGHT: 167.6 cm WEIGHT: 136.1 kg BP: 167/92 RVIDd: 3.8 cm (< 3.3) IVSd: 1.4 cm (0.6 - 1.1) LVIDd: 4.7 cm (3.9 - 5.3) LVPWd: 1.5 cm (0.6 - 1.1) IVSs: 1.7 cm LVIDs: 3.6 cm LVPWs: 2.0 cm LAESV Index (A-L): 41.44 ml/m Ao Diam: 2.8 cm (2.0 - 3.7) AV Cusp: 1.8 cm (1.5 - 2.6) MV EXCURSION: 14.270 mm (> 18.000) MV EF SLOPE: 73 mm/s (70 - 150) EPSS: 1.5 cm MV E Domingo: 1.08 m/s MV DecT: 205 ms MV A Domingo: 0.84 m/s MV E/A Ratio: 1.28 RAP: 5.00 mmHg RVSP: 76.08 mmHg FINDINGS -------- This was a technically difficult study with suboptimal apical views. The left ventricular size is normal. There is moderate concentric left ventricular hypertrophy. T here is mild global hypokinesis of LV . Overall left ventricular systolic function is mildly impair ed with, an EF between 45 - 50 %. The right ventricle is mild to moderately enlarged. LA is moderately dilated 34-39 ml/m2 The right atrium was not well visualized. 5.0mg of Lumason was utilized for enhancement of images Interatrial and interventricular septum intact. The aortic valve is trileaflet and appears structurally normal. There is no evidence of aortic regu rgitation. There is no evidence of aortic stenosis. Mild mitral regurgitation is present. Severe tricuspid regurgitation present. There is severe pulmonary hypertension. The right ventric ular systolic pressure, as measured by Doppler, is 76.08mmHg. There is no pulmonic regurgitation present. The aortic root size is normal. IVC Not well visulized. There is no pericardial effusion. CONCLUSIONS -------- 1. The left ventricular size is normal. 2. There is moderate concentric left ventricular hypertrophy. 3. There is mild global hypokinesis of LV . 4. Overall left ventricular systolic function is mildly impaired with, an EF between 45 - 50 %. 5. The right ventricle is mild to moderately enlarged. 6. LA is moderately dilated 34-39 ml/m2 7. Severe tricuspid regurgitation present. 8. There is severe pulmonary hypertension. 9. The right ventricular systolic pressure, as measured by Doppler, is 76.08mmHg. MILLING MACHINE SET UP OPERATOR: Yue Martinez RDCS
[2020-02-11 12:07] LABS: Glucose,Whole Blood 172 mg/dL (75-99)
[2020-02-11] MEDS: DEXTROSE 5% IN WATER 1,000 ML with SODIUM BICARB (1 MEQ/ML) 150 ML IV SCH ×3 (13:10→19:54)
[2020-02-11 13:20] LABS: Glucose,Whole Blood 170 mg/dL (75-99)
[2020-02-11] MEDS: FOLIC ACID 1 MG TAB PO SCH (14:09)
[2020-02-11] MEDS: THIAMINE 100 MG TAB PO SCH (14:09)
--- NOTE | 2020-02-11 14:35 | CDI ---
Documentation Clarification Form Date: 02/11/2020 02:04:04 PM From: Kathy Durbin RN CCDS Admit Date: 02/02/2020 01:56:00 PM Patient Name: Brown Lopez Visit Number: [id number] Discharge Date: ATTENTION: The Clinical Documentation Specialists (CDI) and [facility] Coding Staff appreciate your assistance in clarifying documentation. Please respond to the clarification below the line at the bottom and electronically sign. The CDI & [facility] Coding staff will review the response and follow-up if needed. Please note: Queries are made part of the Legal Health Record. If you have any questions, please contact the author of this message via ITS. Dr. Viola Montez The diagnosis Sepsis was documented in the H&P and Internal Medicine progress notes 02/02 through 02/05 but is not noted in subsequent documentation. History/Risk Factors: 58-year-old male presents to the ED with bilateral leg cellulitis and heel ulcers. The patient had a recent debridement went home with PICC instead of ECF and fell was down approximately 18 hours. Medical history of DM2, CHF and MRSA infection. Admitting diagnosis Acute bilateral leg cellulitis with sepsis with failure of outpatient treatment. Clinical Indicators: 02/01 VSS on admission: B/P: 139/79; HR: 91; Temp: 97.7; RR: 18; SpO2 98% Room air 02/01 LABS: Wbc 6.8, Lactic acid 4.0; 2.6; 3.2; AST 86; Alk Phos: 549; CRP: 71.9; 02/01 Left Foot Xray: Vascular calcification is present. Moderate diffuse subcutaneous edema and soft tissue swelling more prominent or progressed from prior study. 02/01 Bone scan left heel: left os calcis felt to reflect underlying osteomyelitis. Treatment: 02/01 0.9 NS 2L bolus followed by 130cc/hr; 02/01 Daptomycin Ivpb, d/c 02/03; 02/01 Flagyl Ivpb d/c 02/08; 02/02 Cefepime Ivpb Please clarify if the Sepsis was: Present/active this admission Treated and resolved this admission Ruled out Other, please specify Clinically unable to determine (Last Query Form Revision: March 2019) Sepsis was: Present/active this admission MTDD
--- NOTE | 2020-02-11 14:54 | PN ---
PROGRESS NOTE DATE OF SERVICE: 02/11/2020 REASON FOR FOLLOWUP: Left heel osteomyelitis and bilateral lower extremity cellulitis. INTERVAL HISTORY: The patient seemed to have slight worsening of his condition. This morning he was noticed to be hypothermic, not keeping his BiPAP on, hemodynamically stable, not on pressor support, though. No vomiting or diarrhea has been reported by the nursing staff. PHYSICAL EXAMINATION: Blood pressure 129/72 with a pulse of 82, temperature 95.6, he is 100% on 40% oxygen. General description is a middle-aged male, lying in bed in no distress. RESPIRATORY SYSTEM: Unlabored breathing, decreased breath sounds at the base. No wheeze. HEART: S1, S2. Regular rate and rhythm. ABDOMEN: Soft, no guarding or rigidity. No drainage on the dressing, continue with the dressing. LABS: Creatinine is worse at 3.99. White count normal at 8.6 last. DIAGNOSTIC IMPRESSION AND PLAN: Patient has bilateral lower extremity cellulitis in this patient who did have a left heel osteomyelitis, now with worsening of his kidney function and respiratory status. Will be transferred to the ICU. Chest x-ray mostly CHF pattern. Keep the patient on cefepime and Flagyl to cover for the organism that has grown since his last visit. Local care to continue as ordered and monitor clinical course closely. MMODL / IJN: [id number] /
--- NOTE | 2020-02-11 15:16 | P.CNPUL ---
History of Present Illness Consult date: 02/11/20 Requesting physician: Viola Montez Reason for consult: dyspnea, hypoxemia Chief complaint: acute hypoxic respiratory failure, altered mental status History of present illness: This is a 49-year-old white male patient with history of diabetes mellitus type 2, obstructive sleep apnea on CPAP, chronic CHF, previous history of MRSA infection, chronic anemia, who presented to the hospital on 02/02/2020 per EMS for evaluation of worsening cellulitis involving his left heel wound that was recently treated with antibiotics during his recent hospitalization. His both legs were blistering, popping with increased redness, patient was having fever, chills. Patient was receiving IV antibiotics at home, and home care was doing wound care for his bilateral lower extremity wounds. Patient has not been able to ambulate. patient had previously had surgical debridement of his left heel that was infected with maggots. Nuclear bone scan on 2019 showed findings highly suspicious for osteomyelitis of the left os calcis. patient was being treated with antibiotics, ID service was following, patient was on a combination of cefepime, and Flagyl. Wound cultures from his left and right leg wounds showed Diann. Patient developed acute kidney injury, he previously was on hemodialysis for short period of time a few months ago. Nephrology was consulted for worsening renal function and worsening peripheral edema. In the past few days since 02/08/2020, patient was noted to be less responsive, not responding verbally, only oriented to person. On 02/09/2020 COde Stroke was activated, brain CT showed no acute intracranial hemorrhage or midline shift, there was a mild diffuse cerebral atrophy and moderate chronic small vessel ischemic changes. carotid Doppler showed no hemodynamically significant stenosis. echocardiogram showed moderate concentric LVH, EF of 45-50%, anterior atrial an intraventricular septum intact, no evidence of aortic stenosis, mild MR, severe pulmonary hypertension with severe tricuspid regurgitation with right-sided pressures of 76 mmHg. Patient's mentation continued to deteriorate, today patient is not speaking at all, he appears to have left-sided anisocoria, he is lethargic, x-ray shows perihilar airspace disease, small lung volumes. Patient was placed on BiPAP support although he was very agitated, and Taken off the BiPAP and desaturating into the low 80s. His consult was initiated with regards to worsening respiratory status. Blood gas has been obtained and reviewed showing pO2 of 53, pCO2 of 36, and pH of 7.19 and this was done on FiO2 of 28% per nasal cannula. Review of Systems All systems: negative Constitutional: Reports lethargy, Denies chills, Denies fever Eyes: denies blurred vision, denies pain Ears, nose, mouth and throat: Denies headache, Denies sore throat Cardiovascular: Denies chest pain, Denies shortness of breath Respiratory: Denies cough Gastrointestinal: Denies abdominal pain, Denies diarrhea, Denies nausea, Denies vomiting Musculoskeletal: Denies myalgias Integumentary: Denies pruritus, Denies rash Neurological: Reports change in mentation, Reports change in speech, Denies numbness, Denies weakness Psychiatric: Denies anxiety, Denies depression Endocrine: Denies fatigue, Denies weight change Past Medical History Past Medical History: Diabetes Mellitus, Sleep Apnea/CPAP/BIPAP Additional Past Medical History / Comment(s): CHF, neuropathy History of Any Multi-Drug Resistant Organisms: MRSA Date of last positivie culture/infection: 2004 MDRO Source:: Rt shoulder Past Surgical History: Orthopedic Surgery Additional Past Surgical History / Comment(s): carpal tunnel in right wrist, MRSA infection drain in right shoulder Past Anesthesia/Blood Transfusion Reactions: No Reported Reaction Past Psychological History: No Psychological Hx Reported Smoking Status: Never smoker Past Alcohol Use History: None Reported, Unable to Obtain Past Drug Use History: None Reported - Past Family History Father Family Medical History: Cancer Sister(s) Family Medical History: Cancer Additional Family Medical History / Comment(s): cervical cancer Brother(s) Family Medical History: Liver Disease Additional Family Medical History / Comment(s): from liver cirrhosis. another brother has throat cancer Medications and Allergies Home Medications Medication Instructions Recorded Confirmed Type Aspirin [[place] Aspirin EC] 81 mg PO DAILY 01/24/20 02/02/20 History Multivitamins, Thera [Multivitamin 1 tab PO DAILY 01/24/20 02/02/20 History (formulary)] Famotidine [Pepcid] 20 mg PO Q12HR 30 Days #60 tab 01/30/20 02/02/20 Rx Insuln Asp Prt/Insulin Aspart 35 unit SQ AC-SUPPER 30 Days #3 01/30/20 02/02/20 Rx [NovoLOG MIX 70-30 VIAL] vial Insuln Asp Prt/Insulin Aspart 50 unit SQ AC-BRKFST 30 Days #3 01/30/20 02/02/20 Rx [NovoLOG MIX 70-30 VIAL] vial metroNIDAZOLE [Flagyl] 500 mg PO Q8HR #90 tab 01/30/20 02/02/20 Rx Acetaminophen [Tylenol] 650 mg PO Q8H PRN 02/02/20 02/02/20 History Allergies Allergy/AdvReac Type Severity Reaction Status Date / Time Penicillins Allergy Swelling Verified 02/02/20 12:35 Sulfa (Sulfonamide Allergy Unknown Verified 02/02/20 12:35 Antibiotics) Physical Exam Vitals: Vital Signs Temp Pulse Pulse Resp BP BP Pulse Ox 02/11/20 14:00 80 8 L 93/74 100 02/11/20 13:30 82 8 L 120/72 100 02/11/20 13:16 95.6 F L 82 14 100 02/11/20 11:36 88 18 02/11/20 11:26 88 17 02/11/20 08:20 88 22 02/11/20 07:49 82 18 02/11/20 07:36 80 02/11/20 07:00 98.7 F 88 22 141/83 94 L 02/11/20 02:03 97.6 F 79 16 167/92 97 02/10/20 20:07 78 02/10/20 20:00 78 02/10/20 19:11 77 16 122/77 98 02/10/20 16:10 82 02/10/20 16:05 79 20 02/10/20 16:03 80 Intake and Output 02/10/20 02/11/20 02/11/20 22:59 06:59 14:59 Intake Total 450 600 Output Total 500 1025 240 Balance -500 -575 360 Intake: IV 400 Sodium Chloride 0.9% 1, 400 000 ml @ 50 mls/hr IV . Q20H ANNEMARIE Rx#:[id number] Intake, IV Titration 450 150 Amount Cefepime 1 gm In Sodium 50 50 Chloride 0.9% 50 ml @ 12. 5 mls/hr IVPB Q12HR ANNEMARIE Rx#:[id number] Dextrose 5% in Water 1, 400 000 ml @ 50 mls/hr IV . Q23H ANNEMARIE with Sodium Bicarb (1 Meq/ml) 150 ml Rx#:[id number] Fluconazole in NaCl,Iso- 100 Osm 200 mg In Saline 1 100ml.bag @ 100 mls/hr IVPB DAILY FOR[facility]LY [facility], 1928–1983 Rx#: [id number] Oral 50 Output: Urine 500 1025 240 Other: Voiding Method Indwelling Catheter Indwelling Catheter Indwelling Catheter GENERAL EXAM: lethargic, 49-year-old obese white male, on 2 L of oxygen, patient opens eyes, however he is not answering verbally, and not following commands comfortable in no apparent distress. HEAD: Normocephalic/atraumatic. EYES: Normal reaction of pupils, left pupil measuring 5 mm, mildly reactive to light, right pupil is 2 mm in diameter reactive. Conjunctiva pink, sclera white. NOSE: Clear with pink turbinates. THROAT: No erythema or exudates. NECK: No masses, no JVD, no thyroid enlargement, no adenopathy. CHEST: No chest wall deformity. Symmetrical expansion. LUNGS: Equal air entry with no crackles, wheeze, rhonchi or dullness. CVS: Regular rate and rhythm, normal S1 and S2, no gallops, no murmurs, no rubs ABDOMEN: Soft, nontender. No hepatosplenomegaly, normal bowel sounds, no guarding or rigidity. EXTREMITIES: No clubbing, significant edema involving upper and lower extremities, no cyanosis, 2+ pulses and upper and lower extremities. bilateral lower extremities covered with dressings MUSCULOSKELETAL: Muscle strength and tone normal. SPINE: No scoliosis or deformity SKIN: No rashes CENTRAL NERVOUS SYSTEM: obtunded, stuporous, obese, 49-year-old white male, 2 L of oxygen, no facial asymmetry, however patient is not verbally responding to questions or following commands PSYCHIATRIC: stuporous Results - Laboratory Findings CBC and BMP: 02/09/20 07:46 02/11/20 08:37 ABG ABG pH 7.19 (7.35-7.45) L* 02/11/20 11:01 ABG pCO2 36 mmHg (35-45) 02/11/20 11:01 ABG pO2 53 mmHg (83-108) L* 02/11/20 11:01 ABG O2 Saturation 80.3 % (94-97) L 02/11/20 11:01 PT/INR, D-dimer PT 13.2 sec (9.0-12.0) H 02/02/20 12:39 INR 1.3 (<1.2) H 02/02/20 12:39 Abnormal lab findings: Abnormal Labs 02/02/20 02/02/20 02/02/20 12:39 12:39 12:39 RBC 2.71 L Hgb 8.2 L Hct 28.3 L MCV 104.4 H MCHC 29.1 L RDW Lymphocytes # (Manual) Metamyelocytes # (Man) Myelocytes # (Manual) Nucleated RBCs Macrocytosis PT 13.2 H INR 1.3 H APTT 30.2 H ABG pH ABG pO2 ABG HCO3 ABG Total CO2 ABG O2 Saturation Sodium 134 L Potassium Chloride Carbon Dioxide 15 L BUN 31 H Creatinine 1.90 H Glucose 461 H POC Glucose (mg/dL) Plasma Lactic Acid Guille Calcium 8.0 L TIBC Ferritin AST 86 H Alkaline Phosphatase 549 H C-Reactive Protein 71.9 H Albumin 2.3 L LDL Cholesterol, Calc HDL Cholesterol TSH Free T4 02/02/20 02/02/20 02/02/20 13:01 13:52 15:42 RBC Hgb Hct MCV MCHC RDW Lymphocytes # (Manual) Metamyelocytes # (Man) Myelocytes # (Manual) Nucleated RBCs Macrocytosis PT INR APTT ABG pH ABG pO2 ABG HCO3 ABG Total CO2 ABG O2 Saturation Sodium Potassium Chloride Carbon Dioxide BUN Creatinine Glucose POC Glucose (mg/dL) 472 H Plasma Lactic Acid Guille 5.4 H* 4.0 H* Calcium TIBC Ferritin AST Alkaline Phosphatase C-Reactive Protein Albumin LDL Cholesterol, Calc HDL Cholesterol TSH Free T4 02/02/20 02/02/20 02/02/20 16:41 18:12 20:19 RBC Hgb Hct MCV MCHC RDW Lymphocytes # (Manual) Metamyelocytes # (Man) Myelocytes # (Manual) Nucleated RBCs Macrocytosis PT INR APTT ABG pH ABG pO2 ABG HCO3 ABG Total CO2 ABG O2 Saturation Sodium Potassium Chloride Carbon Dioxide BUN Creatinine Glucose POC Glucose (mg/dL) 384 H 397 H Plasma Lactic Acid Guille 2.6 H* Calcium TIBC Ferritin AST Alkaline Phosphatase C-Reactive Protein Albumin LDL Cholesterol, Calc HDL Cholesterol TSH Free T4 02/02/20 02/03/20 02/03/20 21:04 05:36 05:36 RBC 2.65 L Hgb 7.8 L Hct 27.3 L MCV 103.0 H MCHC 28.7 L RDW Lymphocytes # (Manual) Metamyelocytes # (Man) Myelocytes # (Manual) Nucleated RBCs Macrocytosis PT INR APTT ABG pH ABG pO2 ABG HCO3 ABG Total CO2 ABG O2 Saturation Sodium Potassium Chloride 112 H Carbon Dioxide 19 L BUN 30 H Creatinine 1.79 H Glucose 160 H POC Glucose (mg/dL) Plasma Lactic Acid Guille 3.2 H* Calcium 7.4 L TIBC Ferritin AST Alkaline Phosphatase C-Reactive Protein Albumin LDL Cholesterol, Calc HDL Cholesterol TSH Free T4 02/03/20 02/03/20 02/03/20 06:04 08:15 11:40 RBC Hgb Hct MCV MCHC RDW Lymphocytes # (Manual) Metamyelocytes # (Man) Myelocytes # (Manual) Nucleated RBCs Macrocytosis PT INR APTT ABG pH ABG pO2 ABG HCO3 ABG Total CO2 ABG O2 Saturation Sodium Potassium Chloride Carbon Dioxide BUN Creatinine Glucose POC Glucose (mg/dL) 176 H 178 H 150 H Plasma Lactic Acid Guille Calcium TIBC Ferritin AST Alkaline Phosphatase C-Reactive Protein Albumin LDL Cholesterol, Calc HDL Cholesterol TSH Free T4 02/03/20 02/03/20 02/03/20 16:37 17:33 20:23 RBC Hgb Hct MCV MCHC RDW Lymphocytes # (Manual) Metamyelocytes # (Man) Myelocytes # (Manual) Nucleated RBCs Macrocytosis PT INR APTT ABG pH ABG pO2 ABG HCO3 ABG Total CO2 ABG O2 Saturation Sodium Potassium Chloride Carbon Dioxide BUN Creatinine Glucose POC Glucose (mg/dL) 126 H 130 H 128 H Plasma Lactic Acid Guille Calcium TIBC Ferritin AST Alkaline Phosphatase C-Reactive Protein Albumin LDL Cholesterol, Calc HDL Cholesterol TSH Free T4 02/04/20 02/04/20 02/04/20 05:57 05:57 06:08 RBC 2.74 L Hgb 8.3 L Hct 28.5 L MCV 104.1 H MCHC 29.0 L RDW Lymphocytes # (Manual) Metamyelocytes # (Man) Myelocytes # (Manual) Nucleated RBCs Macrocytosis PT INR APTT ABG pH ABG pO2 ABG HCO3 ABG Total CO2 ABG O2 Saturation Sodium Potassium Chloride 114 H Carbon Dioxide 19 L BUN 31 H Creatinine 1.98 H Glucose 105 H POC Glucose (mg/dL) 104 H Plasma Lactic Acid Guille Calcium 7.5 L TIBC Ferritin AST Alkaline Phosphatase C-Reactive Protein Albumin LDL Cholesterol, Calc HDL Cholesterol TSH Free T4 02/04/20 02/04/20 02/04/20 08:35 11:30 16:58 RBC Hgb Hct MCV MCHC RDW Lymphocytes # (Manual) Metamyelocytes # (Man) Myelocytes # (Manual) Nucleated RBCs Macrocytosis PT INR APTT ABG pH ABG pO2 ABG HCO3 ABG Total CO2 ABG O2 Saturation Sodium Potassium Chloride Carbon Dioxide BUN Creatinine Glucose POC Glucose (mg/dL) 130 H 199 H 185 H Plasma Lactic Acid Guille Calcium TIBC Ferritin AST Alkaline Phosphatase C-Reactive Protein Albumin LDL Cholesterol, Calc HDL Cholesterol TSH Free T4 02/04/20 02/05/20 02/05/20 20:08 07:28 07:37 RBC 2.81 L Hgb 8.5 L Hct 29.8 L MCV 106.0 H MCHC 28.7 L RDW 15.6 H Lymphocytes # (Manual) Metamyelocytes # (Man) Myelocytes # (Manual) Nucleated RBCs Macrocytosis PT INR APTT ABG pH ABG pO2 ABG HCO3 ABG Total CO2 ABG O2 Saturation Sodium Potassium Chloride Carbon Dioxide BUN Creatinine Glucose POC Glucose (mg/dL) 161 H 124 H Plasma Lactic Acid Guille Calcium TIBC Ferritin AST Alkaline Phosphatase C-Reactive Protein Albumin LDL Cholesterol, Calc HDL Cholesterol TSH Free T4 02/05/20 02/05/20 02/05/20 07:37 11:48 17:02 RBC Hgb Hct MCV MCHC RDW Lymphocytes # (Manual) Metamyelocytes # (Man) Myelocytes # (Manual) Nucleated RBCs Macrocytosis PT INR APTT ABG pH ABG pO2 ABG HCO3 ABG Total CO2 ABG O2 Saturation Sodium Potassium Chloride 113 H Carbon Dioxide 18 L BUN 40 H Creatinine 2.13 H Glucose 116 H POC Glucose (mg/dL) 125 H 134 H Plasma Lactic Acid Guille Calcium 7.6 L TIBC Ferritin AST Alkaline Phosphatase C-Reactive Protein Albumin LDL Cholesterol, Calc HDL Cholesterol TSH Free T4 02/05/20 02/06/20 02/06/20 19:50 11:39 16:41 RBC Hgb Hct MCV MCHC RDW Lymphocytes # (Manual) Metamyelocytes # (Man) Myelocytes # (Manual) Nucleated RBCs Macrocytosis PT INR APTT ABG pH ABG pO2 ABG HCO3 ABG Total CO2 ABG O2 Saturation Sodium Potassium Chloride Carbon Dioxide BUN Creatinine Glucose POC Glucose (mg/dL) 179 H 73 L 112 H Plasma Lactic Acid Guille Calcium TIBC Ferritin AST Alkaline Phosphatase C-Reactive Protein Albumin LDL Cholesterol, Calc HDL Cholesterol TSH Free T4 02/06/20 02/07/20 02/07/20 20:20 06:48 11:15 RBC Hgb Hct MCV MCHC RDW Lymphocytes # (Manual) Metamyelocytes # (Man) Myelocytes # (Manual) Nucleated RBCs Macrocytosis PT INR APTT ABG pH ABG pO2 ABG HCO3 ABG Total CO2 ABG O2 Saturation Sodium Potassium Chloride Carbon Dioxide BUN Creatinine Glucose POC Glucose (mg/dL) 131 H 109 H 54 L Plasma Lactic Acid Guille Calcium TIBC Ferritin AST Alkaline Phosphatase C-Reactive Protein Albumin LDL Cholesterol, Calc HDL Cholesterol TSH Free T4 02/07/20 02/07/20 02/07/20 11:28 11:30 11:43 RBC Hgb Hct MCV MCHC RDW Lymphocytes # (Manual) Metamyelocytes # (Man) Myelocytes # (Manual) Nucleated RBCs Macrocytosis PT INR APTT ABG pH ABG pO2 ABG HCO3 ABG Total CO2 ABG O2 Saturation Sodium Potassium Chloride Carbon Dioxide BUN Creatinine Glucose POC Glucose (mg/dL) 55 L 50 L 61 L Plasma Lactic Acid Guille Calcium TIBC Ferritin AST Alkaline Phosphatase C-Reactive Protein Albumin LDL Cholesterol, Calc HDL Cholesterol TSH Free T4 02/07/20 02/08/20 02/08/20 12:00 06:44 06:53 RBC 2.69 L Hgb 8.0 L Hct 29.1 L MCV 107.9 H MCHC 27.5 L RDW 17.2 H Lymphocytes # (Manual) 0.83 L Metamyelocytes # (Man) 0.06 H Myelocytes # (Manual) 0.06 H Nucleated RBCs 1 H Macrocytosis Marked A PT INR APTT ABG pH ABG pO2 ABG HCO3 ABG Total CO2 ABG O2 Saturation Sodium Potassium Chloride Carbon Dioxide BUN Creatinine Glucose POC Glucose (mg/dL) 70 L 129 H Plasma Lactic Acid Guille Calcium TIBC Ferritin AST Alkaline Phosphatase C-Reactive Protein Albumin LDL Cholesterol, Calc HDL Cholesterol TSH Free T4 02/08/20 02/08/20 02/08/20 06:53 11:13 16:52 RBC Hgb Hct MCV MCHC RDW Lymphocytes # (Manual) Metamyelocytes # (Man) Myelocytes # (Manual) Nucleated RBCs Macrocytosis PT INR APTT ABG pH ABG pO2 ABG HCO3 ABG Total CO2 ABG O2 Saturation Sodium 136 L Potassium Chloride 113 H Carbon Dioxide 16 L BUN 57 H Creatinine 2.91 H Glucose POC Glucose (mg/dL) 151 H 169 H Plasma Lactic Acid Guille Calcium 7.5 L TIBC Ferritin AST Alkaline Phosphatase 296 H C-Reactive Protein Albumin 2.2 L LDL Cholesterol, Calc HDL Cholesterol TSH Free T4 02/08/20 02/08/20 02/09/20 17:43 20:37 07:17 RBC 2.59 L Hgb 7.9 L Hct 27.5 L MCV 106.4 H MCHC 28.8 L RDW 17.3 H Lymphocytes # (Manual) Metamyelocytes # (Man) Myelocytes # (Manual) Nucleated RBCs Macrocytosis Marked A PT INR APTT ABG pH ABG pO2 ABG HCO3 ABG Total CO2 ABG O2 Saturation Sodium Potassium Chloride Carbon Dioxide BUN Creatinine Glucose POC Glucose (mg/dL) 131 H 101 H Plasma Lactic Acid Guille Calcium TIBC Ferritin AST Alkaline Phosphatase C-Reactive Protein Albumin LDL Cholesterol, Calc HDL Cholesterol TSH Free T4 02/09/20 02/09/20 02/09/20 07:46 07:46 07:46 RBC 2.66 L Hgb 8.2 L Hct 28.2 L MCV 105.8 H MCHC 29.2 L RDW 17.4 H Lymphocytes # (Manual) Metamyelocytes # (Man) Myelocytes # (Manual) Nucleated RBCs Macrocytosis Marked A PT INR APTT ABG pH ABG pO2 ABG HCO3 ABG Total CO2 ABG O2 Saturation Sodium 136 L Potassium Chloride 114 H Carbon Dioxide 16 L BUN 64 H Creatinine 3.32 H Glucose POC Glucose (mg/dL) Plasma Lactic Acid Guille Calcium 7.6 L TIBC 203 L Ferritin 710.9 H AST Alkaline Phosphatase C-Reactive Protein Albumin LDL Cholesterol, Calc HDL Cholesterol TSH Free T4 02/09/20 02/09/20 02/09/20 15:36 15:38 15:59 RBC Hgb Hct MCV MCHC RDW Lymphocytes # (Manual) Metamyelocytes # (Man) Myelocytes # (Manual) Nucleated RBCs Macrocytosis PT INR APTT ABG pH ABG pO2 ABG HCO3 ABG Total CO2 ABG O2 Saturation Sodium Potassium Chloride Carbon Dioxide BUN Creatinine Glucose POC Glucose (mg/dL) 38 L 39 L 44 L Plasma Lactic Acid Guille Calcium TIBC Ferritin AST Alkaline Phosphatase C-Reactive Protein Albumin LDL Cholesterol, Calc HDL Cholesterol TSH Free T4 02/09/20 02/09/20 02/09/20 16:28 17:03 17:26 RBC Hgb Hct MCV MCHC RDW Lymphocytes # (Manual) Metamyelocytes # (Man) Myelocytes # (Manual) Nucleated RBCs Macrocytosis PT INR APTT ABG pH ABG pO2 ABG HCO3 ABG Total CO2 ABG O2 Saturation Sodium Potassium Chloride Carbon Dioxide BUN Creatinine Glucose POC Glucose (mg/dL) 40 L 43 L 106 H Plasma Lactic Acid Guille Calcium TIBC Ferritin AST Alkaline Phosphatase C-Reactive Protein Albumin LDL Cholesterol, Calc HDL Cholesterol TSH Free T4 02/09/20 02/09/20 02/09/20 20:19 20:50 21:04 RBC Hgb Hct MCV MCHC RDW Lymphocytes # (Manual) Metamyelocytes # (Man) Myelocytes # (Manual) Nucleated RBCs Macrocytosis PT INR APTT ABG pH ABG pO2 ABG HCO3 ABG Total CO2 ABG O2 Saturation Sodium Potassium Chloride Carbon Dioxide BUN Creatinine Glucose POC Glucose (mg/dL) 49 L 63 L 66 L Plasma Lactic Acid Guille Calcium TIBC Ferritin AST Alkaline Phosphatase C-Reactive Protein Albumin LDL Cholesterol, Calc HDL Cholesterol TSH Free T4 02/10/20 02/10/20 02/10/20 10:04 10:43 11:25 RBC Hgb Hct MCV MCHC RDW Lymphocytes # (Manual) Metamyelocytes # (Man) Myelocytes # (Manual) Nucleated RBCs Macrocytosis PT INR APTT ABG pH ABG pO2 ABG HCO3 ABG Total CO2 ABG O2 Saturation Sodium Potassium Chloride 116 H Carbon Dioxide 13 L BUN 70 H Creatinine 3.62 H Glucose POC Glucose (mg/dL) 113 H 129 H Plasma Lactic Acid Guille Calcium 7.6 L TIBC Ferritin AST Alkaline Phosphatase C-Reactive Protein Albumin LDL Cholesterol, Calc HDL Cholesterol TSH Free T4 02/10/20 02/10/20 02/10/20 16:35 16:51 20:12 RBC Hgb Hct MCV MCHC RDW Lymphocytes # (Manual) Metamyelocytes # (Man) Myelocytes # (Manual) Nucleated RBCs Macrocytosis PT INR APTT ABG pH ABG pO2 ABG HCO3 ABG Total CO2 ABG O2 Saturation Sodium Potassium Chloride Carbon Dioxide BUN Creatinine Glucose POC Glucose (mg/dL) 112 H 108 H Plasma Lactic Acid Guille Calcium TIBC Ferritin AST Alkaline Phosphatase C-Reactive Protein Albumin LDL Cholesterol, Calc HDL Cholesterol TSH 83.600 H Free T4 0.29 L 02/11/20 02/11/20 02/11/20 07:11 08:37 11:01 RBC Hgb Hct MCV MCHC RDW Lymphocytes # (Manual) Metamyelocytes # (Man) Myelocytes # (Manual) Nucleated RBCs Macrocytosis PT INR APTT ABG pH 7.19 L* ABG pO2 53 L* ABG HCO3 14 L ABG Total CO2 15 L ABG O2 Saturation 80.3 L Sodium Potassium 5.2 H Chloride 116 H Carbon Dioxide 12 L BUN 73 H Creatinine 3.99 H Glucose 140 H POC Glucose (mg/dL) 169 H Plasma Lactic Acid Guille Calcium 7.8 L TIBC Ferritin AST Alkaline Phosphatase C-Reactive Protein Albumin LDL Cholesterol, Calc 107 H HDL Cholesterol 16 L TSH Free T4 02/11/20 02/11/20 12:06 13:18 RBC Hgb Hct MCV MCHC RDW Lymphocytes # (Manual) Metamyelocytes # (Man) Myelocytes # (Manual) Nucleated RBCs Macrocytosis PT INR APTT ABG pH ABG pO2 ABG HCO3 ABG Total CO2 ABG O2 Saturation Sodium Potassium Chloride Carbon Dioxide BUN Creatinine Glucose POC Glucose (mg/dL) 172 H 170 H Plasma Lactic Acid Guille Calcium TIBC Ferritin AST Alkaline Phosphatase C-Reactive Protein Albumin LDL Cholesterol, Calc HDL Cholesterol TSH Free T4 - Diagnostic Findings Chest x-ray: report reviewed, image reviewed Additional studies: Brain CT, chest x-ray, echocardiogram, carotid Doppler study reviewed Assessment and Plan Plan: Assessment: #1. Acute hypoxic respiratory failure, likely related to underlying sepsis, altered mental status, hypoventilation. chest x-ray shows enlarged heart, p erihilar airspace disease, and prominent Central vascularity, small lung volumes. #2. Global aphasia and left upper extremity weakness, possibly related to acute stroke, neurology is following #3. Acute non-anion gap metabolic acidosis, related to acute kidney injury #4. 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 Hypothyroidism, started on levothyroxin #6. Severe pulmonary hypertension with severe tricuspid regurgitation, likely secondary to underlying obstructive sleep apnea and chronic hypoxic respiratory failure #7. recent hospitalization for bilateral leg cellulitis and heel ulcers, status post surgical debridement, patient had a PICC line placed and discharged home on IV antibiotics #8. Diabetes mellitus type 2 with diabeticneuropathy #9. Chronic congestive heart failure, with diastolic dysfunction #10. Previous history of MRSA infection #11. Chronic kidney disease stage III, previously on hemodialysis for short period of time #12. History of sleep apnea, unclear whether or not patient is compliant with CPAP #13. History o degenerative joint disease #14. Medical debility, gait dysfunction Plan: Blood gas has been reviewed, chest x-ray has been reviewed, patient was seen and evaluated with Dr. Mcgraw. We'll give the patient and pelvis sodium bicarbonate, and start D5W with 3 A of bicarbonate at 75 ML per hour. Patient will be placed on BiPAP support, or high flow nasal cannula, he will be transferred to the intensive care unit, discussed the case with attending physician, and neurology on the case, in view of neurological symptoms, CTA brain will be obtained. continue current antibiotics, he service is following, vascular surgery is following in regards to left calcaneus cellulitis and osteomyelitis. Keep the patient nothing by mouth, maintaining aspiration precautions, close hemodynamic monitoring in the unit. GI and DVT prophylaxis. I performed a history & physical examination of the patient and discussed their management with my nurse practitioner, Mere Byrnes. I reviewed the nurse practitioner's note and agree with the documented findings and plan of care. Lung sounds are positive for diminished breath sounds. The findings and the impression was discussed with the patient. I attest to the documentation by the nurse practitioner. Time with Patient: Greater than 30
--- NOTE | 2020-02-11 15:37 | XR ---
EXAMINATION TYPE: XR chest 1V DATE OF EXAM: 02/11/2020 COMPARISON: 02/11/2020, earlier today HISTORY: 49-year-old male increasing oxygen demand TECHNIQUE: Single frontal view of the chest is obtained. FINDINGS: Heart remains mildly enlarged. Some improving perihilar and interstitial densities. Patchy right lowe r lung density remains. Some thickening of the minor fissure also remains. Old right midclavicular sh aft fracture deformity. IMPRESSION: Cardiomegaly with improving perihilar and interstitial densities. Correlate for improving CHF but wit h residual pulmonary vascular congestion. Focal opacity remains at the right base and could represent patchy pulmonary edema, atelectasis, or an infiltrate.
[2020-02-11] MEDS ORDERED: SODIUM BICARBONATE TAB 650 MG TAB PO SCH (16:00)
--- NOTE | 2020-02-11 17:30 | P.PN ---
Subjective Progress Note Date: 02/11/20 Principal diagnosis: Global aphasia and dilated left pupil: possible stroke vs aneurysm Patient was seen at bedside and the per the nurse the patient had a dilated pupil on the left compared to the right. Patient continues to be in pain not responding. He continues to move his right side more than the left. Objective - Vital Signs Vital signs: Vital Signs Temp 98.7 F 02/11/20 07:00 Pulse 88 02/11/20 11:26 Resp 17 02/11/20 11:26 BP 141/83 02/11/20 07:00 Pulse Ox 94 L 02/11/20 07:00 Intake & Output 02/10/20 02/11/20 02/11/20 18:59 06:59 18:59 Intake Total 700 450 Output Total 1525 Balance 700 -1075 Intake: Intake, IV Titration 450 450 Amount Cefepime 1 gm In Sodium 50 50 Chloride 0.9% 50 ml @ 12. 5 mls/hr IVPB Q12HR [facility] Rx#:[id number] Dextrose 5% in Water 1, 300 400 000 ml @ 50 mls/hr IV . Q23H ANN[facility]IE with Sodium Bicarb (1 Meq/ml) 150 ml Rx#:[id number] Fluconazole in NaCl,Iso- 100 Osm 200 mg In Saline 1 100ml.bag @ 100 mls/hr IVPB DAILY [facility] Rx#: [id number] Oral 250 Output: Urine 1525 Other: Voiding Method Indwelling Catheter Indwelling Catheter - Exam GENERAL: The patient is lying in bed and is in moderate to severe distress. LUNG: Clear to auscultation bilaterally no wheezing noted throughout. Not labored breathing. ABDOMEN/GI: Bowel sounds present in all 4 quadrants. No tenderness to palpation throughout. NEUROLOGICAL: Limited because of patient condition. Higher mental function: The patient is awake and not responding to any questions or following command. Global aphasia. Cranial nerves: The pupils are round, right pupil 2-3mm and left is about 5mm a nd neither are reactive to light. Visual field are intact to threat. Extraocular movement: patient not tracking thru the room just looking fowrard. Faical sensation could not assess. No facial weakness appreciated. Motor: Gait is defered. The strength could not assess because of his pain. He raised right upper extremity spontaneously. No spontaneous movement noted in left upper extremity or bilateral lower extremity. Has increase tone on left upper extreimty and mild increased tone on right upper extreimty.Normal bulk. Sensation: Could not assess because of condition but seems to have intact painful stimuli throughout. Reflexes (right/left): Biceps 2+/3+Brachioradialis 3+ bilaterally, triceps could not assess. Could not assess lower because of patient pain and had wrapping a round from his underlying infection. Plantar: Mute bilaterally - Labs CBC & Chem 7: 02/09/20 07:46 02/11/20 08:37 Labs: Abnormal Lab Results - Last 24 Hours (Table) 02/10/20 02/10/20 02/10/20 Range/Units 10:43 16:35 16:51 ABG pH (7.35-7.45) ABG pO2 (83-108) mmHg ABG HCO3 (21-25) mmol/L ABG Total CO2 (19-24) mmol/L ABG O2 Saturation (94-97) % Potassium (3.5-5.1) mmol/L Chloride 116 H (98-107) mmol/L Carbon Dioxide 13 L (22-30) mmol/L BUN 70 H (9-20) mg/dL Creatinine 3.62 H (0.66-1.25) mg/dL Glucose (74-99) mg/dL POC Glucose (mg/dL) 112 H (75-99) mg/dL Calcium 7.6 L (8.4-10.2) mg/dL LDL Cholesterol, Calc (0-99) mg/dL HDL Cholesterol (40-60) mg/dL TSH 83.600 H (0.465-4.680) mIU/L Free T4 0.29 L (0.78-2.19) ng/dL 02/10/20 02/11/20 02/11/20 Range/Units 20:12 07:11 08:37 ABG pH (7.35-7.45) ABG pO2 (83-108) mmHg ABG HCO3 (21-25) mmol/L ABG Total CO2 (19-24) mmol/L ABG O2 Saturation (94-97) % Potassium 5.2 H (3.5-5.1) mmol/L Chloride 116 H (98-107) mmol/L Carbon Dioxide 12 L (22-30) mmol/L BUN 73 H (9-20) mg/dL Creatinine 3.99 H (0.66-1.25) mg/dL Glucose 140 H (74-99) mg/dL POC Glucose (mg/dL) 108 H 169 H (75-99) mg/dL Calcium 7.8 L (8.4-10.2) mg/dL LDL Cholesterol, Calc 107 H (0-99) mg/dL HDL Cholesterol 16 L (40-60) mg/dL TSH (0.465-4.680) mIU/L Free T4 (0.78-2.19) ng/dL 02/11/20 Range/Units 11:01 ABG pH 7.19 L* (7.35-7.45) ABG pO2 53 L* (83-108) mmHg ABG HCO3 14 L (21-25) mmol/L ABG Total CO2 15 L (19-24) mmol/L ABG O2 Saturation 80.3 L (94-97) % Potassium (3.5-5.1) mmol/L Chloride (98-107) mmol/L Carbon Dioxide (22-30) mmol/L BUN (9-20) mg/dL Creatinine (0.66-1.25) mg/dL Glucose (74-99) mg/dL POC Glucose (mg/dL) (75-99) mg/dL Calcium (8.4-10.2) mg/dL LDL Cholesterol, Calc (0-99) mg/dL HDL Cholesterol (40-60) mg/dL TSH (0.465-4.680) mIU/L Free T4 (0.78-2.19) ng/dL Assessment and Plan Assessment: Global Aphasia, moving the right upper extremity > left upper extremity and dilated left pupil that is non-reactive: Concern for Aneurysm because of dilated pupil. Also cannot rule out increased intracranial pressure. Also concern for stroke. 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 Patient cannot get MRI Brain because of body habitus. Carotid duplex: No hemodynamic significant stenosis of the proximal internal carotid arteries. ORDERED STAT CT ANGIOGRAM OF HEAD AND NECK TO RULE OUT ANEURYSM. The primary team spoke with nephrology and they cleared patient for CTA head and neck. The plan was discussed with the nurse. I personally waited for the results for about 2 hours but no images were seen. Spoke with patient's nurse and he said the CTA head and neck could not be performed. I Called hydroelectric plant technician and notified them about patient. Ordered MRI Brain and MRA head STAT (I spoke with patient ICU nurse and notified her that if it cannot be done then CTA head and neck needs to be done STAT). If MRI Braind/MRA head or CTA head/neck does not show aneurysm or answer to his anisocoria that is non-reactive then consider Lumbar puncture. Ordered 2Decho, lipid profile: T, chlestrol 151, LDL 107 and HDL: 16. TSH: 83.60 and Free T4: 0.29. Recommend PT/OT consultation, cardiac monitoring. Patient is currently on ASA 81mg and on Lipitor 40mg daily. If possible recommend switching the from ceftriaxone or cephalosporin to an alternate antibiotic since it causes encephalopathy. We'll defer the antibiotic management to the ID team. Ammonia level: 16 Regarding management of patient of hypothyroidism and respiratory issue will defer it to primary team. Plan was discussed with primary team and ICU team. Cristian Brown MD Neuro-hospitalist. Time with Patient: Greater than 30
--- NOTE | 2020-02-11 19:01 | CT ---
EXAMINATION TYPE: CT angio head neck DATE OF EXAM: 02/11/2020 HISTORY: cva. Acute onset neuro deficit with acute confusion and difficulty with speech. COMPARISON: Carotid ultrasound from yesterday CT DLP: 1037.6 mGycm. Automated Exposure Control for Dose Reduction was Utilized. TECHNIQUE: CTA scan of the neck is performed with IV Contrast, patient injected with 65cc mL of Isov ue 370, axial images are obtained, coronal and sagittal reformatted images are reviewed. Three-D tamie nstructed images are created on an independent workstation and reviewed. FINDINGS: Carotid/Vascular Structures: There is a 4 vessel origin from aortic arch which is normal variant. Rig ht common carotid artery shows normal origin from right brachiocephalic artery. Some motion artifact degradation proximal to mid common carotid artery level axial image 35 makes evaluation at this level suboptimal remainder of the right common carotid artery shows no significant plaque or stenosis bila terally. There is artifact degradation at level of right carotid bulb where there is focal moderate t o severe calcified plaque but no definitive greater than 50% stenosis. There is a patent external car otid artery. There is more mild calcified plaque along the course of the right common carotid artery. No significant plaque at level of left carotid bulb with patent external carotid artery show no sign ificant stenosis. Left internal carotid artery shows no significant plaque or stenosis. There is slightly larger dominant right vertebral artery. Vertebral arteries are patent to basilar ju nction. There are hypoplastic bilateral posterior to indicating arteries. There is no significant foc al stenosis or aneurysmal change in the posterior circulation. Images of the anterior circulation olivia w patent anterior communicating artery. There is no significant focal stenosis or aneurysmal change. Other: Prominence of the CSF in the posterior aspect posterior fossa redemonstrated. Some generalized fat replaced atrophy of bilateral parotid glands redemonstrated. Mild subcutaneous edema anterior cl avicular region incidentally noted. There are at least small bilateral pleural effusions partially im aged and suspected some alveolar and interstitial edema. Findings correlate with same day x-ray. Disp laced right midclavicular fracture noted on localizer also correlates with x-rays. IMPRESSION: 1. No significant stenosis in common or internal carotid arteries bilaterally. 2. No significant focal stenosis or aneurysm at the level of the [place] of [place].
[2020-02-11 19:24] LABS: Glucose,Whole Blood 189 mg/dL (75-99)
[2020-02-11] MEDS ORDERED: SALINE IV ONE (19:35)
[2020-02-11] MEDS ORDERED: MANNITOL 20% IV ONE (19:35)
[2020-02-11] MEDS: SODIUM CHLORIDE 3%(HYPERTONIC) 500 ML IV SCH (20:23)
--- NOTE | 2020-02-11 23:32 | P.PN ---
Subjective Progress Note Date: 02/10/20 Principal diagnosis: Bilateral LE cellulitis Mr. Lopez is a 49-year-old male with a past medical history of type 2 diabetes mellitus, sleep apnea, CHF, MRSA infection of the right shoulder coming in for worsening bilateral lower extremity cellulitis and heel ulcers. Patient was recently discharged from the hospital to extended care facility rehab but patient went home. Apparently he fell and was lying on the floor for almost 18 hours before he could get help. So the patient follow-up increasing cellulitis and blisters and was admitted to [facility] again. Patient was found to have hyperglycemia and a recent blood culture showed multiple organisms including anaerobic, Morganella, beta-hemolytic's, diphtheroids, alphahemolytic's and streptococci. Patient is currently on antibiotics in the form of cefepime and Flagyl. As the patient's culture was positive for Diann albicans he is also on fluconazole. The patient's vitals have been stable his temperature 97.4 blood pressure 154/79 saturating at 95% on room air. On reviewing his labs from 8 6 hemoglobin stable around 8.5. As per the nursing staff report there is increased swelling of his left upper extremity where he has a PICC line in place. Patient denied having any pain but thinks that his left hand is more swollen than the right hand. On 02/08/2020 - patient is sitting up in a chair by the bedside. As per the nursing staff report patient had a bloody bowel movement this morning. Initially it was few drops but later on there was a clot in the common by the be dside. Patient denied having any abdominal pain. He states that he didn't even notice that he had blood in his stool. Patient denied having any nausea or vomiting. No diarrhea. He denies having any fever, chills or rigors. Patient is not on any anticoagulation except for home dose of aspirin 81 mg and subcu heparin for DVT prophylaxis that was started in the hospital.patient denies having any shortness of breath or palpitations. He denies having any dizziness. He states that his tailbone hurts from sitting for too long on the chair. On reviewing his vitals patient'sT-max is 97.6, blood pressure 132/80, saturating at 95% on room air.on reviewing the labs from this morning his hemoglobin is 8. electrolytes from this morning showing sodium of 136, chloride of 113, bicarb of 16, B and 57 and creatinine trending up to 2.91. Patient also had a left upper extremity Doppler that was negative for DVT yesterday evening. On 02/08- Patient was lying in bed and the certified composites technician is up at the bedside getting a renal ultrasound. Patient denied having any active c omplaints. On reviewing the patient's vitals his temperature 97.2, heart rate 79, respiratory rate 20, blood pressure 125/98, saturating at 96% on room air. Patient's labs have been reviewed, creatinine still trending up to 3.32 today. Nephrology on board. On 02/10/2020 -yesterday in the afternoon, the patient was not like himself and so stroke code was activated. Patient had CT of the head and it was reported as no acute intracranial hemorrhage or midline shift. There was mild diffuse cerebral atrophy and moderate chronic vessel ischemic changes. Neurology was consulted. This morning patient was not communicating, he was looking at me but was not responding to any of my questions. He was only responding by grimacing, when I was touching his lower extremities. He was not able to follow my commands. On reviewing the vitals patient's temperature 97.2, heart rate 79, respiratory 20, blood pressure 125/90, saturating at 96% on room air. On reviewing his labs sodium 131, potassium 4.1, chloride 113, bicarb 13, BUN 70, creatinine 3.62. Objective - Vital Signs Vital signs: Vital Signs Temp 97.2 F L 02/10/20 14:24 Pulse 82 02/10/20 16:10 Resp 20 02/10/20 16:05 BP 125/90 02/10/20 14:24 Pulse Ox 96 02/10/20 14:24 Intake & Output 02/09/20 02/10/20 02/10/20 18:59 06:59 18:59 Intake Total 120 550 700 Output Total 800 Balance 120 -250 700 Intake: Intake, IV Titration 450 Amount Cefepime 1 gm In Sodium 50 Chloride 0.9% 50 ml @ 12. 5 mls/hr IVPB Q12HR [facility] Rx#:[id number] Dextrose 5% in Water 1, 300 000 ml @ 50 mls/hr IV . Q23H [facility]IE with Sodium Bicarb (1 Meq/ml) 150 ml Rx#:[id number] Fluconazole in NaCl,Iso- 100 Osm 200 mg In Saline 1 100ml.bag @ 100 mls/hr IVPB DAILY [facility] Rx#: [id number] Oral 120 550 250 Output: Urine 800 Other: Voiding Method Bedside Commode Indwelling Catheter Indwelling Catheter Diaper Incontinent # Voids 3 - Exam PHYSICAL EXAM General appearance: looks blank ,not responding Head exam: atraumatic, normocephalic, normal inspection Neck exam: short webbed neck Respiratory exam: decreased breath sounds on bilateral lower lung hameed Cardiovascular Exam:regular rate, normal rhythm, normal heart sounds. Extremities exam: bilateral LE wrapped in PEDRO banadage, I did not open them. Left Upper extremity - fingers are swollen and pitting edema note HEALTH SERVICES MANAGER: Pt is awake but not oriented, No facial droop, was gazing at me and did not follow commands. - Labs CBC & Chem 7: 02/09/20 07:46 02/10/20 10:43 Labs: Abnormal Lab Results - Last 24 Hours (Table) 02/09/20 02/09/20 02/09/20 Range/Units 07:46 20:19 20:50 Chloride (98-107) mmol/L Carbon Dioxide (22-30) mmol/L BUN (9-20) mg/dL Creatinine (0.66-1.25) mg/dL POC Glucose (mg/dL) 49 L 63 L (75-99) mg/dL Calcium (8.4-10.2) mg/dL TIBC 203 L (228-460) ug/dL Ferritin 710.9 H (22.0-322.0) ng/mL TSH (0.465-4.680) mIU/L 02/09/20 02/10/20 02/10/20 Range/Units 21:04 10:04 10:43 Chloride 116 H (98-107) mmol/L Carbon Dioxide 13 L (22-30) mmol/L BUN 70 H (9-20) mg/dL Creatinine 3.62 H (0.66-1.25) mg/dL POC Glucose (mg/dL) 66 L 113 H (75-99) mg/dL Calcium 7.6 L (8.4-10.2) mg/dL TIBC (228-460) ug/dL Ferritin (22.0-322.0) ng/mL TSH (0.465-4.680) mIU/L 02/10/20 02/10/20 02/10/20 Range/Units 11:25 16:35 16:51 Chloride (98-107) mmol/L Carbon Dioxide (22-30) mmol/L BUN (9-20) mg/dL Creatinine (0.66-1.25) mg/dL POC Glucose (mg/dL) 129 H 112 H (75-99) mg/dL Calcium (8.4-10.2) mg/dL TIBC (228-460) ug/dL Ferritin (22.0-322.0) ng/mL TSH 83.600 H (0.465-4.680) mIU/L Assessment and Plan Assessment: ASSESSMENT Aphasia - most likely due to Stroke Acute Kidney Injury Acute bilateral lower extremity cellulitis failed outpatient therapy Left heel diabetic ulcer, status post debridement Possible osteomyelitis of the left calcaneal bone Diann albicans from the wound culture Blood in the stool Microcytic anemia Type 2 diabetes mellitus poorly controlled with hyperglycemia Peripheral neuropathy CKD stage III Hyponatremia Hypoalbuminemia with mild protein calorie malnutrition Obstructive sleep apnea Possible obesity hypoventilation syndrome History of congestive heart failure with unknown ejection fraction History of MRSA of the right shoulder Degenerative joint disease Morbid obesity with BMI 47.1 PLAN: Neurology evaluated the patient and repeat a CT scan of the head was ordered. Stroke work up in progress. Continue with the rest of his medication regimen. Further recommendations to follow depending on the progress of the patient. Overall prognosis is guarded.
--- NOTE | 2020-02-11 23:52 | P.PN ---
Subjective Progress Note Date: 02/11/20 Principal diagnosis: Bilateral LE cellulitis , Acute Encephalopathy Mr. Lopez is a 49-year-old male with a past medical history of type 2 diabetes mellitus, sleep apnea, CHF, MRSA infection of the right shoulder coming in for worsening bilateral lower extremity cellulitis and heel ulcers. Patient was recently discharged from the hospital to extended care facility rehab but patient went home. Apparently he fell and was lying on the floor for almost 18 hours before he could get help. So the patient follow-up increasing cellulitis and blisters and was admitted to [facility] again. Patient was found to have hyperglycemia and a recent blood culture showed multiple organisms including anaerobic, Morganella, beta-hemolytic's, diphtheroids, alphahemolyt ic's and streptococci. Patient is currently on antibiotics in the form of cefepime and Flagyl. As the patient's culture was positive for Diann albicans he is also on fluconazole. The patient's vitals have been stable his temperature 97.4 blood pressure 154/79 saturating at 95% on room air. On reviewing his labs from 8 6 hemoglobin stable around 8.5. As per the nursing staff report there is increased swelling of his left upper extremity where he has a PICC line in place. Patient denied having any pain but thinks that his left hand is more swollen than the right hand. On 02/08/2020 - patient is sitting up in a chair by the bedside. As per the nursing staff report patient had a bloody bowel movement this morning. Initially it was few drops but later on there was a clot in the common by the bedside. Patient denied having any abdominal pain. He states that he didn't e avila notice that he had blood in his stool. Patient denied having any nausea or vomiting. No diarrhea. He denies having any fever, chills or rigors. Patient is not on any anticoagulation except for home dose of aspirin 81 mg and subcu heparin for DVT prophylaxis that was started in the hospital.patient denies having any shortness of breath or palpitations. He denies having any dizziness. He states that his tailbone hurts from sitting for too long on the chair. On reviewing his vitals patient'sT-max is 97.6, blood pressure 132/80, saturating at 95% on room air.on reviewing the labs from this morning his hemoglobin is 8. electrolytes from this morning showing sodium of 136, chloride of 113, bicarb of 16, B and 57 and creatinine trending up to 2.91. Patient also had a left upper extremity Doppler that was negative for DVT yesterday evening. On 02/08- Patient was lying in bed and the avionics systems technician is up at the bedside getting a renal ultrasound. Patient denied having any active complaints. On reviewing the patient's vitals his temperature 97.2, heart rate 79, respiratory rate 20, blood pressure 125/98, saturating at 96% on room air. Patient's labs have been reviewed, creatinine still trending up to 3.32 today. Nephrology on board. On 02/10/2020 -yesterday in the afternoon, the patient was not like himself and so stroke code was activated. Patient had CT of the head and it was reported as no acute intracranial hemorrhage or midline shift. There was mild diffuse cerebral atrophy and moderate chronic vessel ischemic changes. Neurology was consulted. This morning patient was not communicating, he was looking at me but was not responding to any of my questions. He was only responding by grimacing, when I was touching his lower extremities. He was not able to follow my commands. On reviewing the vitals patient's temperature 97.2, heart rate 79, respiratory 20, blood pressure 125/90, saturating at 96% on room air. On reviewing his labs sodium 131, potassium 4.1, chloride 113, bicarb 13, BUN 70, creatinine 3.62. On 02/11/2020 -in the morning patient was found to be tachypneic and sweating and he had a low temperature of 95.8. His blood pressure was also low at 91 x 52. So the patient was started on BiPAP and pulmonary consult was obtained. As a part of stroke work-up patient had carotid artery Doppler that was negative for significant stenosis and he also had an echocardiogram showing moderate melodie ntric left ventricular hypertrophy with ejection fraction of 45 to 50% with severe pulmonary hypertension and RVSP of 76. Today the patient is not speaking at all, only grimacing on touching his lower extremities. He was lethargic. Patient was also trying to pull his Josue's catheter and the Josue's bag was having pinkish urine. ABGs done showed pH of 7.19, PO2 of 53 and PCO2 of 36. So eventually the patient is transferred to the ICU. Patient's care was coordinated with pulmonary and neurology. Neurology Dr. Brown , suggested getting CT angios of the head. But the patient has worsening creatinine,so I called Dr. Bosch,Nephrology, who cleared him for CT angiogram. Objective - Vital Signs Vital signs: Vital Signs Temp 98.7 F 02/11/20 07:00 Pulse 88 02/11/20 11:36 Resp 18 02/11/20 11:36 BP 141/83 02/11/20 07:00 Pulse Ox 94 L 02/11/20 07:00 Intake & Output 02/10/20 02/11/20 02/11/20 18:59 06:59 18:59 Intake Total 700 450 Output Total 1525 Balance 700 -1075 Intake: Intake, IV Titration 450 450 Amount Cefepime 1 gm In Sodium 50 50 Chloride 0.9% 50 ml @ 12. 5 mls/hr IVPB Q12HR [facility] Rx#:[id number] Dextrose 5% in Water 1, 300 400 000 ml @ 50 mls/hr IV . Q23H [facility] with Sodium Bicarb (1 Meq/ml) 150 ml Rx#:[id number] Fluconazole in NaCl,Iso- 100 Osm 200 mg In Saline 1 100ml.bag @ 100 mls/hr IVPB DAILY [facility] Rx#: [id number] Oral 250 Output: Urine 1525 Other: Voiding Method Indwelling Catheter Indwelling Catheter Indwelling Catheter - Exam PHYSICAL EXAM General appearance: pt is diaphoretic, trying to pull his BiPAP off with both his hands Head exam: atraumatic, normocephalic, normal inspection Neck exam: short webbed neck Respiratory exam: decreased breath sounds on bilateral lower lung hameed Cardiovascular Exam:regular rate, normal rhythm, normal heart sounds. Extremities exam: bilateral LE wrapped in PEDRO banadage, Left Upper extremity - fingers are swollen and pitting edema. DRIFTMAN: As per Neurology - Labs CBC & Chem 7: 02/09/20 07:46 02/11/20 19:53 Labs: Abnormal Lab Results - Last 24 Hours (Table) 02/10/20 02/10/20 02/10/20 Range/Units 16:35 16:51 20:12 ABG pH (7.35-7.45) ABG pO2 (83-108) mmHg ABG HCO3 (21-25) mmol/L ABG Total CO2 (19-24) mmol/L ABG O2 Saturation (94-97) % Potassium (3.5-5.1) mmol/L Chloride (98-107) mmol/L Carbon Dioxide (22-30) mmol/L BUN (9-20) mg/dL Creatinine (0.66-1.25) mg/dL Glucose (74-99) mg/dL POC Glucose (mg/dL) 112 H 108 H (75-99) mg/dL Calcium (8.4-10.2) mg/dL LDL Cholesterol, Calc (0-99) mg/dL HDL Cholesterol (40-60) mg/dL TSH 83.600 H (0.465-4.680) mIU/L Free T4 0.29 L (0.78-2.19) ng/dL 02/11/20 02/11/20 02/11/20 Range/Units 07:11 08:37 11:01 ABG pH 7.19 L* (7.35-7.45) ABG pO2 53 L* (83-108) mmHg ABG HCO3 14 L (21-25) mmol/L ABG Total CO2 15 L (19-24) mmol/L ABG O2 Saturation 80.3 L (94-97) % Potassium 5.2 H (3.5-5.1) mmol/L Chloride 116 H (98-107) mmol/L Carbon Dioxide 12 L (22-30) mmol/L BUN 73 H (9-20) mg/dL Creatinine 3.99 H (0.66-1.25) mg/dL Glucose 140 H (74-99) mg/dL POC Glucose (mg/dL) 169 H (75-99) mg/dL Calcium 7.8 L (8.4-10.2) mg/dL LDL Cholesterol, Calc 107 H (0-99) mg/dL HDL Cholesterol 16 L (40-60) mg/dL TSH (0.465-4.680) mIU/L Free T4 (0.78-2.19) ng/dL Assessment and Plan Assessment: ASSESSMENT Acute hypoxic respiratory failure Acute encephalopathy Global aphasia with left upper extremity weakness - possible acute stroke Anion gap metabolic acidosis Acute kidney injury Hypothyroidism Systolic CHF Severe Pulmonary HTN Acute bilateral lower extremity cellulitis failed outpatient therapy Left heel diabetic ulcer, status post debridement Osteomyelitis of the left calcaneal bone Diann albicans from the wound culture Blood in the stool Hematuria Microcytic anemia Type 2 diabetes mellitus poorly controlled with hyperglycemia Peripheral neuropathy CKD stage III Hyponatremia Hypoalbuminemia with mild protein calorie malnutrition Obstructive sleep apnea Possible obesity hypoventilation syndrome History of MRSA of the right shoulder Degenerative joint disease Morbid obesity with BMI 47.1 Plan: Patient has acute hypoxic respiratory failure, he is placed on BiPAP and being sent to the ICU. There could be multiple etiologies for his encephalopathy including hypothyroidism, uremia, stroke, underlying sepsis, medication induced (cefepime), underlying infection. Neurology on board and r ecommended CT angiogram of the head, nephrology cleared. Multiple consultants including ID, nephrology, vascular, pulmonary, neurology following the patient. Continue with the cuurent medication regimen Overall prognosis is poor. CODE STATUS was discussed with family, sister Elma and mother. They wanted him to be DNR/DNI.
[2020-02-12 00:09] LABS: Glucose,Whole Blood 189 mg/dL (75-99)
[2020-02-12 00:54] LABS: Sodium 140 mmol/L (137-145)
[2020-02-12 06:24] LABS: Glucose,Whole Blood 233 mg/dL (75-99)
[2020-02-12] MEDS: SODIUM CHLORIDE 3%(HYPERTONIC) 500 ML IV SCH ×3 (06:44→17:00)
[2020-02-12] MEDS: INSULIN ASPART (NovoLOG) 100 UNIT/ML VIAL SQ SCH ×4 (07:04→21:09)
[2020-02-12 07:50] LABS: Anisocytosis Slight; Basophils # (A) 0.1 k/uL (0-0.2); Basophils % (A) 1 %; Eosinophils # (A) 0.1 k/uL (0-0.7); Eosinophils % (A) 3 %; HCT 27.6 % (39.0-53.0); Hypochromasia Marked; Lymphocytes # (A) 0.8 k/uL (1.0-4.8); Lymphocytes % (A) 15 %; MCH 30.8 pg (25.0-35.0); MCV 106.4 fL (80.0-100.0); Macrocytosis Marked; Mean Platelet Volume 9.2; Monocytes # (A) 0.3 k/uL (0-1.0); Monocytes % (A) 5 %; Neutrophils % (A) 75 %; Platelet Count 188 k/uL (150-450); Poikilocytosis Slight; RBC 2.59 m/uL (4.30-5.90); RDW 18.7 % (11.5-15.5); WBC 5.3 k/uL (3.8-10.6)
[2020-02-12] MEDS: IPRATROPIUM-ALBUTEROL 3 ML NEB INHALATION SCH ×4 (07:50→19:43)
--- NOTE | 2020-02-12 07:58 | XR ---
EXAMINATION TYPE: XR chest 1V portable DATE OF EXAM: 02/12/2020 COMPARISON: 02/11/2020 HISTORY: Shortness of breath TECHNIQUE: Single frontal view of the chest is obtained. FINDINGS: Persistent interstitial. Bilateral subsegmental areas of consolidation. Some thickening of the minor fissure also remains. Old right midclavicular shaft fracture deformity. Left-sided PICC li ne noted. Bilateral tiny effusions. Mild central interstitial prominence and cardiomegaly. IMPRESSION: 1. Persistent pleural-parenchymal changes correlate for pneumonia versus CHF.
[2020-02-12 08:05] LABS: Calcium 7.3 mg/dL (8.4-10.2); Potassium 4.5 mmol/L (3.5-5.1)
[2020-02-12] MEDS: ATORVASTATIN 40 MG TAB PO SCH (08:31)
[2020-02-12] MEDS: ASPIRIN 81 MG PO SCH (08:31)
[2020-02-12] MEDS: INSULN ASP PRT/INSULIN ASPART 100 UNIT/ML 10 ML VIAL SQ SCH ×2 (08:45→18:32)
[2020-02-12] MEDS: LEVOTHYROXINE IVP 100 MCG/5 ML VIAL IV SCH (08:50)
[2020-02-12] MEDS: PANTOPRAZOLE 40 MG/10 ML VIAL IV SCH (08:50)
[2020-02-12] MEDS: FUROSEMIDE 10 MG/ML 4 ML VIAL IV SCH (08:53)
[2020-02-12] MEDS: HEPARIN SODIUM,PORCINE 5,000 UNIT/ML 1 ML VIAL SQ SCH ×2 (08:53→21:09)
[2020-02-12] MEDS: THIAMINE 100 MG/ML 2 ML VIAL IVP SCH (08:53)
[2020-02-12] MEDS ORDERED: FUROSEMIDE 10 MG/ML 2 ML VIAL IV STA (08:53)
[2020-02-12] MEDS: HYDROCORTISONE 2.5% RECTAL CREAM 30 GM TUBE RECTAL SCH ×2 (09:03→21:11)
[2020-02-12] MEDS: CEFEPIME 1 GM in SODIUM CHLORIDE 0.9% 50 ML IVPB SCH ×2 (09:59→21:09)
[2020-02-12] MEDS: FLUCONAZOLE IN NACL,ISO-OSM 200 MG in SALINE 1 100ML.BAG IVPB SCH (09:59)
[2020-02-12 10:08] LABS: ABG HCO3 17 mmol/L (21-25); ABG Oxygen Saturation 98.5 % (94-97); ABG PCO2 34 mmHg (35-45); ABG PH 7.31 (7.35-7.45); ABG PO2 126 mmHg (83-108); ABG TCO2 18 mmol/L (19-24); Allen Test Performed? Yes
--- NOTE | 2020-02-12 10:33 | P.PN ---
Subjective Progress Note Date: 02/12/20 Principal diagnosis: Global aphasia and dilated left pupil Yesterday the patient was transferred to the ICU because of his condition. Patient was not able to get MRI of the brain because of his body habitus. Therefore I notified the nurse to get a CTA of the head and neck stat to rule out any aneurysm which he received yesterday and the was reported as no significant stenosis in the common internal carotid artery bilaterally. No significant focal stenosis or aneurysm at the level [place]. The nurse page me yesterday after the reports I notified her that to start the patient on the 3% saline at 50 mL an hour and to give that the patient 1 dose stat of mannitol for concern of elevated ICP. Around 1:00 at a.m. on 02/12/2020 was paged the patient's left pupil was the sluggishly reactive to light so I notified them to increase the 3% to 60 mL an hour. Upon seeing the patient he was on BiPAP today. Per the patient's nurse she states that the patient was not moving or following commands. She did feel like he said just one-word. She felt like He was moving the bilateral upper extremity spontaneously and symmetrically. But did not see any movement of lower extremities. CODE STATUS was addressed with the patient's family and the patient was made DO NOT INTUBATE and DO NOT RESUSCITATE. I spoke with the patient's sister (Elma) via phone who next of kin and she said that that she wants the patient to be just medically managed and no intervention and no procedures. She only wants medication involved. Objective - Vital Signs Vital signs: Vital Signs Temp 97.8 F 02/12/20 04:00 Pulse 82 02/12/20 07:50 Resp 19 02/12/20 06:30 BP 129/90 02/12/20 06:30 Pulse Ox 99 02/12/20 06:30 Intake & Output 02/11/20 02/12/20 02/12/20 18:59 06:59 18:59 Intake Total 900 685 Output Total 340 360 Balance 560 325 Weight 141.6 kg Intake: IV 400 610 3% 610 Sodium Chloride 0.9% 1, 400 000 ml @ 50 mls/hr IV . Q20H [facility] Rx#:[id number] Intake, IV Titration 450 75 Amount Cefepime 1 gm In Sodium 50 Chloride 0.9% 50 ml @ 12. 5 mls/hr IVPB Q12HR [facility] Rx#:[id number] Dextrose 5% in Water 1, 300 75 000 ml @ 75 mls/hr IV . [id number] [facility] with Sodium Bicarb (1 Meq/ml) 150 ml Rx#:[id number] Fluconazole in NaCl,Iso- 100 Osm 200 mg In Saline 1 100ml.bag @ 100 mls/hr IVPB DAILY [facility] Rx#: [id number] Oral 50 Output: Urine 340 360 Other: Voiding Method Indwelling Catheter Indwelling Catheter - Exam GENERAL: The patient is lying in bed and is in moderate distress. LUNG: Clear to auscultation bilaterally no wheezing noted throughout. Not l abored breathing. ABDOMEN/GI: Bowel sounds present in all 4 quadrants. No tenderness to palpation throughout. NEUROLOGICAL: Limited because of patient condition. Higher mental function: The patient is awake and not responding to any questions or following command. Global aphasia. Cranial nerves: The pupils are round, right pupil 2-3mm and left is about 5-6mm and are sluggishly reactive to light bilaterally. Visual field are intact to threat. Extraocular movement: patient not tracking thru the room just looking fowrard. Faical sensation could not assess. No facial weakness appreciated. Motor: Gait is defered. The strength could not assess because of his pain. No spontaneous movement noted in bilateral upper and lower extremities. Has increase tone on left upper >right upper extremities. Normal bulk. Sensation: Could not assess because of condition but seems to have intact p ainful stimuli throughout. Reflexes (right/left): Biceps 2+/3+, Brachioradialis 3+ bilaterally, triceps could not assess. Could not assess lower because of patient pain and had wrapping around from his underlying infection. Plantar: Mute bilaterally - Labs CBC & Chem 7: 02/12/20 07:33 02/12/20 12:30 Labs: Abnormal Lab Results - Last 24 Hours (Table) 02/11/20 02/11/20 02/11/20 Range/Units 08:37 11:01 12:06 RBC (4.30-5.90) m/uL Hgb (13.0-17.5) gm/dL Hct (39.0-53.0) % MCV (80.0-100.0) fL MCHC (31.0-37.0) g/dL RDW (11.5-15.5) % Lymphocytes # (1.0-4.8) k/uL Macrocytosis ABG pH 7.19 L* (7.35-7.45) ABG pO2 53 L* (83-108) mmHg ABG HCO3 14 L (21-25) mmol/L ABG Total CO2 15 L (19-24) mmol/L ABG O2 Saturation 80.3 L (94-97) % Potassium 5.2 H (3.5-5.1) mmol/L Chloride 116 H (98-107) mmol/L Carbon Dioxide 12 L (22-30) mmol/L BUN 73 H (9-20) mg/dL Creatinine 3.99 H (0.66-1.25) mg/dL Glucose 140 H (74-99) mg/dL POC Glucose (mg/dL) 172 H (75-99) mg/dL Osmolality (280-301) mosm/kg Calcium 7.8 L (8.4-10.2) mg/dL LDL Cholesterol, Calc 107 H (0-99) mg/dL HDL Cholesterol 16 L (40-60) mg/dL 02/11/20 02/11/20 02/12/20 Range/Units 13:18 19:22 00:06 RBC (4.30-5.90) m/uL Hgb (13.0-17.5) gm/dL Hct (39.0-53.0) % MCV (80.0-100.0) fL MCHC (31.0-37.0) g/dL RDW (11.5-15.5) % Lymphocytes # (1.0-4.8) k/uL Macrocytosis ABG pH (7.35-7.45) ABG pO2 (83-108) mmHg ABG HCO3 (21-25) mmol/L ABG Total CO2 (19-24) mmol/L ABG O2 Saturation (94-97) % Potassium (3.5-5.1) mmol/L Chloride (98-107) mmol/L Carbon Dioxide (22-30) mmol/L BUN (9-20) mg/dL Creatinine (0.66-1.25) mg/dL Glucose (74-99) mg/dL POC Glucose (mg/dL) 170 H 189 H 189 H (75-99) mg/dL Osmolality (280-301) mosm/kg Calcium (8.4-10.2) mg/dL LDL Cholesterol, Calc (0-99) mg/dL HDL Cholesterol (40-60) mg/dL 02/12/20 02/12/20 02/12/20 Range/Units 00:22 06:21 07:33 RBC 2.59 L (4.30-5.90) m/uL Hgb 8.0 L (13.0-17.5) gm/dL Hct 27.6 L (39.0-53.0) % MCV 106.4 H (80.0-100.0) fL MCHC 29.0 L (31.0-37.0) g/dL RDW 18.7 H (11.5-15.5) % Lymphocytes # 0.8 L (1.0-4.8) k/uL Macrocytosis Marked A ABG pH (7.35-7.45) ABG pO2 (83-108) mmHg ABG HCO3 (21-25) mmol/L ABG Total CO2 (19-24) mmol/L ABG O2 Saturation (94-97) % Potassium (3.5-5.1) mmol/L Chloride (98-107) mmol/L Carbon Dioxide (22-30) mmol/L BUN (9-20) mg/dL Creatinine (0.66-1.25) mg/dL Glucose (74-99) mg/dL POC Glucose (mg/dL) 233 H (75-99) mg/dL Osmolality 344 H* (280-301) mosm/kg Calcium (8.4-10.2) mg/dL LDL Cholesterol, Calc (0-99) mg/dL HDL Cholesterol (40-60) mg/dL Assessment and Plan Assessment: Global Aphasia, moving the right upper extremity > left upper extremity and dilated left pupil that is non-reactive: Concern for elevated ICP. No aneurysm and no acute ischemia seen on CT head. Acute kidney injury Osteomyelitis of the calcaneus status post debridement Cellulitis of both lower extremities Long-standing history of diabetes mellitus Plan: CT of the head on 02/09/2020 was reported as no acute intracranial hemorrhage or midline shift. There is midline diffuse cerebral atrophy and moderate chronic small vessel ischemic change noted. Possible left greater than the right mastoiditis correlate clinically CT head on 02/10/2020: Did not reveal any acute ischemia, intraparechymal bleed or mass effect. Patient cannot get MRI Brain because of body habitus. Carotid duplex: No hemodynamic significant stenosis of the proximal internal carotid arteries. CT angiogram of the head and neck on 02/11/20 was reported as CTA of the head and neck stat to rule out any aneurysm which he received yesterday and the was reported as O significant stenosis in the common internal carotid artery bilaterally. Unable to get MRI because of the patient body habitus. Patient received a stat dose of mannitol dose on 02/11/20 and was started on 3% saline. Currently at 60cc hour with goal sodium of 145-155. Last sodium is 143. And osmolality 344. Upon reviewing the CT of the head on both 08 at 2019 and 02/09/2020 I felt there was a slight loss of padilla and white matter differentiation there was enl argement of ventricles ventricles lateral third and fourth ventricle. There is no other images of the brain that I can compared to prior to this admission. I contacted the the CT reading radiologist today (02/12/20) and I notified him to review the images and my concerns for enlargement of the ventricles as well as the loss of padilla and white matter differentiation as well as the CTA. Reading radiologist felt like the there is no loss of padilla and white matter differentiation and said the ventricles were not dilated in proportion to the patient's atrophy. He did feel like maybe the patient had some encephalomalacia on the right frontal or near the frontal area. He did not feel the patient was herniating. 2Decho: Ejection fraction of 45-50%. Left atrium is moderately dilated. Modera te concentric left ventricular hypertrophy. Mild global hypokinesis of left ventricle. lipid profile: T, cholestrol 151, LDL 107 and HDL: 16. TSH: 83.60 and Free T4: 0.29. Recommend PT/OT , cardiac monitoring. Ammonia level: 16 Her white blood cells 5.3. Sodium is 143 Patient is currently on ASA 81mg and on Lipitor 40mg daily. Currently on Cefepime. We'll defer the antibiotic management to the ID team. Regarding management of osteomyelitis will defer to Infection disease team and Primary team. Regarding management of patient of hypothyroidism and respiratory issue will defer it to primary team. I notified the patient's sister was the next of kin via phone regarding the patient's condition: She said that she did not want the patient to have any intervention or procedure. She only wants medical management. Code status: DO NOT INTUBATE and DO NOT RESUSCITATE. Plan was discussed with primary team and ICU team. Cristian Brown MD Neuro-hospitalist. Time with Patient: Greater than 30
--- NOTE | 2020-02-12 10:42 | P.PN ---
Subjective Patient is seen in follow-up for acute kidney injury. Renal function continues to worsen. Creatinine 4.3 today. Remains edematous. Maintained on IV Lasix. Currently on BiPAP. Minimally responsive to verbal commands. Has a Josue catheter. Nonoliguric. There is concern for increased intracranial pressure and is currently receiving 3% saline per neurology. Also received mannitol on February 10. Vital signs are stable. General: The patient appeared well nourished and normally developed. HEENT: Head exam is unremarkable. Neck is without jugular venous distension. On BiPAP. LUNGS: Breath sounds decreased. HEART: Rate and Rhythm are regular. ABDOMEN: Soft, nontender. Obese. EXTREMITITES: Wrapped. 2+ edema. Objective - Vital Signs Vital signs: Vital Signs Temp 96.1 F L 02/12/20 08:00 Pulse 75 02/12/20 09:00 Resp 15 02/12/20 09:00 BP 127/81 02/12/20 09:00 Pulse Ox 100 02/12/20 09:00 Intake & Output 02/11/20 02/12/20 02/12/20 18:59 06:59 18:59 Intake Total 900 685 405 Output Total 340 360 150 Balance 560 325 255 Weight 141.6 kg Intake: IV 400 610 405 3% 610 180 Dextrose 5% in Water 1, 225 000 ml @ 75 mls/hr IV . [id number] ANNEMARIE with Sodium Bicarb (1 Meq/ml) 150 ml Rx#:[id number] Sodium Chloride 0.9% 1, 400 000 ml @ 50 mls/hr IV . Q20H ANNEMARIE Rx#:[id number] Intake, IV Titration 450 75 Amount Cefepime 1 gm In Sodium 50 Chloride 0.9% 50 ml @ 12. 5 mls/hr IVPB Q12HR ANNEMARIE Rx#:[id number] Dextrose 5% in Water 1, 300 75 000 ml @ 75 mls/hr IV . [id number] ANNEMARIE with Sodium Bicarb (1 Meq/ml) 150 ml Rx#:[id number] Fluconazole in NaCl,Iso- 100 Osm 200 mg In Saline 1 100ml.bag @ 100 mls/hr IVPB DAILY ANNEMARIE Rx#: [id number] Oral 50 Output: Urine 340 360 150 Other: Voiding Method Indwelling Catheter Indwelling Catheter Indwelling Catheter - Labs CBC & Chem 7: 02/12/20 07:33 02/12/20 07:33 Labs: Abnormal Lab Results - Last 24 Hours (Table) 02/11/20 02/11/20 02/11/20 Range/Units 11:01 12:06 13:18 RBC (4.30-5.90) m/uL Hgb (13.0-17.5) gm/dL Hct (39.0-53.0) % MCV (80.0-100.0) fL MCHC (31.0-37.0) g/dL RDW (11.5-15.5) % Lymphocytes # (1.0-4.8) k/uL Macrocytosis ABG pH 7.19 L* (7.35-7.45) ABG pCO2 (35-45) mmHg ABG pO2 53 L* (83-108) mmHg ABG HCO3 14 L (21-25) mmol/L ABG Total CO2 15 L (19-24) mmol/L ABG O2 Saturation 80.3 L (94-97) % Chloride (98-107) mmol/L Carbon Dioxide (22-30) mmol/L BUN (9-20) mg/dL Creatinine (0.66-1.25) mg/dL Glucose (74-99) mg/dL POC Glucose (mg/dL) 172 H 170 H (75-99) mg/dL Osmolality (280-301) mosm/kg Calcium (8.4-10.2) mg/dL 02/11/20 02/12/20 02/12/20 Range/Units 19:22 00:06 00:22 RBC (4.30-5.90) m/uL Hgb (13.0-17.5) gm/dL Hct (39.0-53.0) % MCV (80.0-100.0) fL MCHC (31.0-37.0) g/dL RDW (11.5-15.5) % Lymphocytes # (1.0-4.8) k/uL Macrocytosis ABG pH (7.35-7.45) ABG pCO2 (35-45) mmHg ABG pO2 (83-108) mmHg ABG HCO3 (21-25) mmol/L ABG Total CO2 (19-24) mmol/L ABG O2 Saturation (94-97) % Chloride (98-107) mmol/L Carbon Dioxide (22-30) mmol/L BUN (9-20) mg/dL Creatinine (0.66-1.25) mg/dL Glucose (74-99) mg/dL POC Glucose (mg/dL) 189 H 189 H (75-99) mg/dL Osmolality 344 H* (280-301) mosm/kg Calcium (8.4-10.2) mg/dL 02/12/20 02/12/20 02/12/20 Range/Units 06:21 07:33 07:33 RBC 2.59 L (4.30-5.90) m/uL Hgb 8.0 L (13.0-17.5) gm/dL Hct 27.6 L (39.0-53.0) % MCV 106.4 H (80.0-100.0) fL MCHC 29.0 L (31.0-37.0) g/dL RDW 18.7 H (11.5-15.5) % Lymphocytes # 0.8 L (1.0-4.8) k/uL Macrocytosis Marked A ABG pH (7.35-7.45) ABG pCO2 (35-45) mmHg ABG pO2 (83-108) mmHg ABG HCO3 (21-25) mmol/L ABG Total CO2 (19-24) mmol/L ABG O2 Saturation (94-97) % Chloride 117 H (98-107) mmol/L Carbon Dioxide 16 L (22-30) mmol/L BUN 78 H (9-20) mg/dL Creatinine 4.30 H (0.66-1.25) mg/dL Glucose 184 H (74-99) mg/dL POC Glucose (mg/dL) 233 H (75-99) mg/dL Osmolality (280-301) mosm/kg Calcium 7.3 L (8.4-10.2) mg/dL 02/12/20 Range/Units 10:08 RBC (4.30-5.90) m/uL Hgb (13.0-17.5) gm/dL Hct (39.0-53.0) % MCV (80.0-100.0) fL MCHC (31.0-37.0) g/dL RDW (11.5-15.5) % Lymphocytes # (1.0-4.8) k/uL Macrocytosis ABG pH 7.31 L (7.35-7.45) ABG pCO2 34 L (35-45) mmHg ABG pO2 126 H (83-108) mmHg ABG HCO3 17 L (21-25) mmol/L ABG Total CO2 18 L (19-24) mmol/L ABG O2 Saturation 98.5 H (94-97) % Chloride (98-107) mmol/L Carbon Dioxide (22-30) mmol/L BUN (9-20) mg/dL Creatinine (0.66-1.25) mg/dL Glucose (74-99) mg/dL POC Glucose (mg/dL) (75-99) mg/dL Osmolality (280-301) mosm/kg Calcium (8.4-10.2) mg/dL Assessment and Plan Plan: Assessment: 1. Acute kidney injury secondary to ATN secondary to infection. Also received IV contrast on February 10. Creatinine 4.3 today. Currently has Josue catheter. Baseline creatinine near 1. Patient was on hemodialysis in the past and the permacath was removed due to recovered renal function. No hydronephrosis noted on kidney ultrasound. 2. Left heel osteomyelitis maintained on antibiotics per infectious disease. Will need further debridement. 3. Insulin-dependent diabetes mellitus. 4. Volume overload. 5. History of MRSA pneumonia. 6. Metabolic acidosis secondary to acute kidney injury. Maintained on bicarb drip. 7. Anemia. Iron replete. Maintained on Aranesp. 8. Concern for increased intracranial pressure. Currently maintained on 3% drip and also received mannitol per neurology. 9. Acute hypoxic respiratory failure. Currently on BiPAP. 10. Acute on chronic systolic CHF with ejection fraction of 45-50% with severe tricuspid regurgitation and pulmonary hypertension. Plan: Increase Lasix to 60 mg IV twice daily. Maintain bicarb drip for now for metabolic acidosis. Strict I's and O's. Continue to monitor renal function and urine output. Avoid nephrotoxins. Follow-up urinalysis.
[2020-02-12] MEDS: DEXTROSE 5% IN WATER 1,000 ML with SODIUM BICARB (1 MEQ/ML) 150 ML IV SCH ×2 (12:03→17:00)
[2020-02-12] MEDS: FOLIC ACID 1 MG TAB PO SCH (12:04)
[2020-02-12 12:21] LABS: Glucose,Whole Blood 153 mg/dL (75-99)
[2020-02-12 12:52] LABS: Amorphous Sediment,Urine Rare /hpf; Appearance,Urine Cloudy (Clear); Bacteria,Urine Rare /hpf; Bilirubin,Urine Negative (Negative); Blood,Urine Moderate (Negative); Color,Urine Yellow; Glucose,Urine (UA) Negative (Negative); Ketones,Urine Negative (Negative); Leukocyte Esterase,Urine Moderate (Negative); Mucus,Urine Rare /hpf; Nitrite,Urine Negative (Negative); PH, Urine 5.5 (5.0-8.0); Protein,Urine 1+ (Negative); RBC,Urine 63 /hpf (0-5); Urobilinogen,Urine <2.0 mg/dL (<2.0); WBC,Urine 11 /hpf (0-5)
[2020-02-12 12:56] LABS: Sodium 142 mmol/L (137-145)
--- NOTE | 2020-02-12 13:15 | P.PN ---
Subjective Progress Note Date: 02/12/20 Principal diagnosis: Acute hypoxic respiratory failure Global aphasia, cellulitis, and sepsis This is a 49-year-old white male patient with history of diabetes mellitus type 2, obstructive sleep apnea on CPAP, chronic CHF, previous history of MRSA infection, chronic anemia, who presented to the hospital on 02/02/2020 per EMS for evaluation of worsening cellulitis involving his left heel wound that was recently treated with antibiotics during his recent hospitalization. His both legs were blistering, popping with increased redness, patient was having fever, chills. Patient was receiving IV antibiotics at home, and home care was doing wound care for his bilateral lower extremity wounds. Patient has not been able to ambulate. patient had previously had surgical debridement of his left heel that was infected with maggots. Nuclear bone scan on 2019 showed fi ndings highly suspicious for osteomyelitis of the left os calcis. patient was being treated with antibiotics, ID service was following, patient was on a combination of cefepime, and Flagyl. Wound cultures from his left and right leg wounds showed Diann. Patient developed acute kidney injury, he previously was on hemodialysis for short period of time a few months ago. Nephrology was consulted for worsening renal function and worsening peripheral edema. In the past few days since 02/08/2020, patient was noted to be less responsive, not responding verbally, only oriented to person. On 02/09/2020 COde Stroke was activated, brain CT showed no acute intracranial hemorrhage or midline shift, there was a mild diffuse cerebral atrophy and moderate chronic small vessel ischemic changes. carotid Doppler showed no hemodynamically significant stenosis. echocardiogram showed moderate concentric LVH, EF of 45-50%, anterior atrial an intraventricular septum intact, no evidence of aortic stenosis, mild MR, severe pulmonary hypertension with severe tricuspid regurgitation with right-sided pressures of 76 mmHg. Patient's mentation continued to deteriorate, today patient is not speaking at all, he appears to have left-sided anisocoria, he is lethargic, x-ray shows perihilar airspace disease, small lung volumes. Patient was placed on BiPAP support although he was very agitated, and Taken off the BiPAP and desaturating into the low 80s. His consult was initiated with regards to worsening respiratory status. Blood gas has been obtained and reviewed showing pO2 of 53, pCO2 of 36, and pH of 7.19 and this was done on FiO2 of 28% per nasal cannula. Patient was reevaluated today on 02/12/20, patient was transferred yesterday to the ICU, could not get MRI because of his body habitus. Patient had CT angiogram of the head and neck, and was basically nondiagnostic. The neurologist was concerned about his anisocoria, still concerned about the possibility of stroke, and he recommended 3% saline and gave him 1 dose of mannitol. Patient was placed on BiPAP overnight, remains on BiPAP, remains globally aphasic. Does not seem to be in any form of respiratory distress. Noted to move upper extremities bilaterally spontaneously and symmetrically. Did not seem to move lower extremities. CODE STATUS has been changed by family to DO NOT RESUSCITATE CODE STATUS. And today I had a chance to discuss his condition with the neurologist and with the supervisor molding on the case. Remains on sodium bicarb drip, and that is being addressed by nephrology on the case. ABG this morning showed a pO2 of 126 pCO2 of 34 pH of 7.31. WBC count is 5.3 hemoglobin is 8. Objective - Vital Signs Vital signs: Vital Signs Temp 96.1 F L 02/12/20 08:00 Pulse 68 02/12/20 12:21 Resp 15 02/12/20 12:00 BP 118/90 02/12/20 12:00 Pulse Ox 98 02/12/20 12:00 Intake & Output 02/11/20 02/12/20 02/12/20 18:59 06:59 18:59 Intake Total 900 685 675 Output Total 340 360 300 Balance 560 325 375 Weight 141.6 kg Intake: IV 400 610 675 3% 610 300 Dextrose 5% in Water 1, 375 000 ml @ 75 mls/hr IV . [id number] ANNEMARIE with Sodium Bicarb (1 Meq/ml) 150 ml Rx#:[id number] Sodium Chloride 0.9% 1, 400 000 ml @ 50 mls/hr IV . Q20H ANNEMARIE Rx#:[id number] Intake, IV Titration 450 75 Amount Cefepime 1 gm In Sodium 50 Chloride 0.9% 50 ml @ 12. 5 mls/hr IVPB Q12HR ANNEMARIE Rx#:[id number] Dextrose 5% in Water 1, 300 75 000 ml @ 75 mls/hr IV . [id number] ANNEMARIE with Sodium Bicarb (1 Meq/ml) 150 ml Rx#:[id number] Fluconazole in NaCl,Iso- 100 Osm 200 mg In Saline 1 100ml.bag @ 100 mls/hr IVPB DAILY ANNEMARIE Rx#: [id number] Oral 50 Output: Urine 340 360 300 Other: Voiding Method Indwelling Catheter Indwelling Catheter Indwelling Catheter - Exam GENERAL EXAM: Revealed 49-year-old white male aphasic, does not follow any instructions, on BiPAP. IPAP of 10 and EPAP of 5 and FiO2 is 30%. HEAD: Normocephalic/atraumatic. EYES: Normal reaction of pupils, left pupil measuring 5 mm, mildly reactive to light, right pupil is 2 mm in diameter reactive. Conjunctiva pink, sclera white. NOSE: Clear with pink turbinates. THROAT: No erythema or exudates. NECK: No masses, no JVD, no thyroid enlargement, no adenopathy. CHEST: No chest wall deformity. Symmetrical expansion. LUNGS: Equal air entry with no crackles, wheeze, rhonchi or dullness. Diminished breath sounds at the bases. CVS: Regular rate and rhythm, normal S1 and S2, no gallops, no murmurs, no rubs ABDOMEN: Soft, nontender. No hepatosplenomegaly, normal bowel sounds, no guarding or rigidity. EXTREMITIES: No clubbing, significant edema involving upper and lower extremities, no cyanosis, 2+ pulses and upper and lower extremities. bilateral lower extremities covered with dressings MUSCULOSKELETAL: Muscle strength and tone normal. SPINE: No scoliosis or deformity SKIN: No rashes CENTRAL NERVOUS SYSTEM: obtunded, stuporous, obese, 49-year-old white male, on BiPAP, does not follow any instructions. Psychiatric: Could not be assessed. Patient is almost catatonic. - Labs CBC & Chem 7: 02/12/20 07:33 02/12/20 12:30 Labs: Abnormal Lab Results - Last 24 Hours (Table) 02/11/20 02/11/20 02/12/20 Range/Units 13:18 19:22 00:06 RBC (4.30-5.90) m/uL Hgb (13.0-17.5) gm/dL Hct (39.0-53.0) % MCV (80.0-100.0) fL MCHC (31.0-37.0) g/dL RDW (11.5-15.5) % Lymphocytes # (1.0-4.8) k/uL Macrocytosis ABG pH (7.35-7.45) ABG pCO2 (35-45) mmHg ABG pO2 (83-108) mmHg ABG HCO3 (21-25) mmol/L ABG Total CO2 (19-24) mmol/L ABG O2 Saturation (94-97) % Chloride (98-107) mmol/L Carbon Dioxide (22-30) mmol/L BUN (9-20) mg/dL Creatinine (0.66-1.25) mg/dL Glucose (74-99) mg/dL POC Glucose (mg/dL) 170 H 189 H 189 H (75-99) mg/dL Osmolality (280-301) mosm/kg Calcium (8.4-10.2) mg/dL Urine Protein (Negative) Urine Blood (Negative) Ur Leukocyte Esterase (Negative) Urine RBC (0-5) /hpf Urine WBC (0-5) /hpf Amorphous Sediment (None) /hpf Urine Bacteria (None) /hpf Urine Mucus (None) /hpf 02/12/20 02/12/20 02/12/20 Range/Units 00:22 06:21 07:33 RBC 2.59 L (4.30-5.90) m/uL Hgb 8.0 L (13.0-17.5) gm/dL Hct 27.6 L (39.0-53.0) % MCV 106.4 H (80.0-100.0) fL MCHC 29.0 L (31.0-37.0) g/dL RDW 18.7 H (11.5-15.5) % Lymphocytes # 0.8 L (1.0-4.8) k/uL Macrocytosis Marked A ABG pH (7.35-7.45) ABG pCO2 (35-45) mmHg ABG pO2 (83-108) mmHg ABG HCO3 (21-25) mmol/L ABG Total CO2 (19-24) mmol/L ABG O2 Saturation (94-97) % Chloride (98-107) mmol/L Carbon Dioxide (22-30) mmol/L BUN (9-20) mg/dL Creatinine (0.66-1.25) mg/dL Glucose (74-99) mg/dL POC Glucose (mg/dL) 233 H (75-99) mg/dL Osmolality 344 H* (280-301) mosm/kg Calcium (8.4-10.2) mg/dL Urine Protein (Negative) Urine Blood (Negative) Ur Leukocyte Esterase (Negative) Urine RBC (0-5) /hpf Urine WBC (0-5) /hpf Amorphous Sediment (None) /hpf Urine Bacteria (None) /hpf Urine Mucus (None) /hpf 02/12/20 02/12/20 02/12/20 Range/Units 07:33 10:08 12:15 RBC (4.30-5.90) m/uL Hgb (13.0-17.5) gm/dL Hct (39.0-53.0) % MCV (80.0-100.0) fL MCHC (31.0-37.0) g/dL RDW (11.5-15.5) % Lymphocytes # (1.0-4.8) k/uL Macrocytosis ABG pH 7.31 L (7.35-7.45) ABG pCO2 34 L (35-45) mmHg ABG pO2 126 H (83-108) mmHg ABG HCO3 17 L (21-25) mmol/L ABG Total CO2 18 L (19-24) mmol/L ABG O2 Saturation 98.5 H (94-97) % Chloride 117 H (98-107) mmol/L Carbon Dioxide 16 L (22-30) mmol/L BUN 78 H (9-20) mg/dL Creatinine 4.30 H (0.66-1.25) mg/dL Glucose 184 H (74-99) mg/dL POC Glucose (mg/dL) (75-99) mg/dL Osmolality 335 H* (280-301) mosm/kg Calcium 7.3 L (8.4-10.2) mg/dL Urine Protein 1+ H (Negative) Urine Blood Moderate H (Negative) Ur Leukocyte Esterase Moderate H (Negative) Urine RBC 63 H (0-5) /hpf Urine WBC 11 H (0-5) /hpf Amorphous Sediment Rare H (None) /hpf Urine Bacteria Rare H (None) /hpf Urine Mucus Rare H (None) /hpf 02/12/20 Range/Units 12:19 RBC (4.30-5.90) m/uL Hgb (13.0-17.5) gm/dL Hct (39.0-53.0) % MCV (80.0-100.0) fL MCHC (31.0-37.0) g/dL RDW (11.5-15.5) % Lymphocytes # (1.0-4.8) k/uL Macrocytosis ABG pH (7.35-7.45) ABG pCO2 (35-45) mmHg ABG pO2 (83-108) mmHg ABG HCO3 (21-25) mmol/L ABG Total CO2 (19-24) mmol/L ABG O2 Saturation (94-97) % Chloride (98-107) mmol/L Carbon Dioxide (22-30) mmol/L BUN (9-20) mg/dL Creatinine (0.66-1.25) mg/dL Glucose (74-99) mg/dL POC Glucose (mg/dL) 153 H (75-99) mg/dL Osmolality (280-301) mosm/kg Calcium (8.4-10.2) mg/dL Urine Protein (Negative) Urine Blood (Negative) Ur Leukocyte Esterase (Negative) Urine RBC (0-5) /hpf Urine WBC (0-5) /hpf Amorphous Sediment (None) /hpf Urine Bacteria (None) /hpf Urine Mucus (None) /hpf Assessment and Plan Assessment: #1. Acute hypoxic respiratory failure, possible sepsis, likely source is his cellulitis and osteomyelitis. obesity hypoventilation syndrome, doubt pneumonia based on chest x-ray. #2. Global aphasia and left upper extremity weakness, possibly related to acute stroke, neurology is following, presently on 3% saline, patient was given mannitol by urology. #3. Acute non-anion gap metabolic acidosis, related to acute kidney injury #4. 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 Hypothyroidism, started on levothyroxin, remains on levothyroxine at 100 g IV push daily #6. Severe pulmonary hypertension with severe tricuspid regurgitation, likely secondary to underlying obstructive sleep apnea and chronic hypoxic respiratory failure #7. recent hospitalization for bilateral leg cellulitis and heel ulcers, status post surgical debridement, patient had a PICC line placed and discharged home on IV antibiotics #8. Diabetes mellitus type 2 with diabeticneuropathy #9. Chronic congestive heart failure, with diastolic dysfunction #10. Previous history of MRSA infection #11. Chronic kidney disease stage III, previously on hemodialysis for short period of time #12. History of sleep apnea, unclear whether or not patient is compliant with CPAP #13. History o degenerative joint disease #14. Medical debility, gait dysfunction Recommendation: Continue BiPAP. Continue antibiotics as per infectious disease on the case. Patient is now on cefepime Continue to monitor neurologically, discussed his neurological status with the neurologist, not certain whether the patient had a CVA but the patient continues to have global aphasia. Continue supportive care measures. Overall prognosis seems to be relatively guarded, we'll continue to follow while in the ICU Continue GI and DVT prophylaxis. Time with Patient: Less than 30
--- NOTE | 2020-02-12 16:52 | P.PN ---
Subjective Progress Note Date: 02/12/20 Principal diagnosis: Bilateral LE cellulitis , Acute Encephalopathy Mr. Lopez is a 49-year-old male with a past medical history of type 2 diabetes mellitus, sleep apnea, CHF, MRSA infection of the right shoulder coming in for worsening bilateral lower extremity cellulitis and heel ulcers. Patient was recently discharged from the hospital to extended care facility rehab but patient went home. Apparently he fell and was lying on the floor for almost 18 hours before he could get help. So the patient follow-up increasing cellulitis and blisters and was admitted to [facility] again. Patient was found to have hyperglycemia and a recent blood culture showed multiple organisms including anaerobic, Morganella, beta-hemolytic's, diphtheroids, alphahemolyt ic's and streptococci. Patient is currently on antibiotics in the form of cefepime and Flagyl. As the patient's culture was positive for Diann albicans he is also on fluconazole. The patient's vitals have been stable his temperature 97.4 blood pressure 154/79 saturating at 95% on room air. On reviewing his labs from 8 6 hemoglobin stable around 8.5. As per the nursing staff report there is increased swelling of his left upper extremity where he has a PICC line in place. Patient denied having any pain but thinks that his left hand is more swollen than the right hand. On 02/08/2020 - patient is sitting up in a chair by the bedside. As per the nursing staff report patient had a bloody bowel movement this morning. Initially it was few drops but later on there was a clot in the common by the bedside. Patient denied having any abdominal pain. He states that he didn't e avila notice that he had blood in his stool. Patient denied having any nausea or vomiting. No diarrhea. He denies having any fever, chills or rigors. Patient is not on any anticoagulation except for home dose of aspirin 81 mg and subcu heparin for DVT prophylaxis that was started in the hospital.patient denies having any shortness of breath or palpitations. He denies having any dizziness. He states that his tailbone hurts from sitting for too long on the chair. On reviewing his vitals patient'sT-max is 97.6, blood pressure 132/80, saturating at 95% on room air.on reviewing the labs from this morning his hemoglobin is 8. electrolytes from this morning showing sodium of 136, chloride of 113, bicarb of 16, B and 57 and creatinine trending up to 2.91. Patient also had a left upper extremity Doppler that was negative for DVT yesterday evening. On 02/08- Patient was lying in bed and the blending technician is up at the bedside getting a renal ultrasound. Patient denied having any active complaints. On reviewing the patient's vitals his temperature 97.2, heart rate 79, respiratory rate 20, blood pressure 125/98, saturating at 96% on room air. Patient's labs have been reviewed, creatinine still trending up to 3.32 today. Nephrology on board. On 02/10/2020 -yesterday in the afternoon, the patient was not like himself and so stroke code was activated. Patient had CT of the head and it was reported as no acute intracranial hemorrhage or midline shift. There was mild diffuse cerebral atrophy and moderate chronic vessel ischemic changes. Neurology was consulted. This morning patient was not communicating, he was looking at me but was not responding to any of my questions. He was only responding by grimacing, when I was touching his lower extremities. He was not able to follow my commands. On reviewing the vitals patient's temperature 97.2, heart rate 79, respiratory 20, blood pressure 125/90, saturating at 96% on room air. On reviewing his labs sodium 131, potassium 4.1, chloride 113, bicarb 13, BUN 70, creatinine 3.62. On 02/11/2020 -in the morning patient was found to be tachypneic and sweating and he had a low temperature of 95.8. His blood pressure was also low at 91 x 52. So the patient was started on BiPAP and pulmonary consult was obtained. As a part of stroke work-up patient had carotid artery Doppler that was negative for significant stenosis and he also had an echocardiogram showing moderate melodie ntric left ventricular hypertrophy with ejection fraction of 45 to 50% with severe pulmonary hypertension and RVSP of 76. Today the patient is not speaking at all, only grimacing on touching his lower extremities. He was lethargic. Patient was also trying to pull his Josue's catheter and the Josue's bag was having pinkish urine. ABGs done showed pH of 7.19, PO2 of 53 and PCO2 of 36. So eventually the patient is transferred to the ICU. Patient's care was coordinated with pulmonary and neurology. Neurology Dr. Brown , suggested getting CT angios of the head. But the patient has worsening creatinine,so I called Dr. Bosch,Nephrology, who cleared him for CT angiogram. On 02/12/2020-patient is currently in the ICU. Last night they attempted to get an MRI, but the patient did not fit into the machine. So CT angiogram of the head was done which was showing no significant stenosis in, and her internal carotid arteries bilaterally, no significant focal stenosis or aneurysm at the level of tanana of [place]. As per neurology as there was concern for increased intracranial pressure due to dilated left pupil and left extremity weakness with global aphasia, the patient was started given a dose of mannitol on 02/11/2020 and was started on 3% saline. This afternoon patient is more awake compared to yesterday. He has spontaneous eye movements but does not follow commands. On r eviewing the vitals patient's temperature is 96.4, heart rate 74, respiratory rate 17, blood pressure 126/87, saturating at 96% on BiPAP. ABGs done this morning show 7.31, pCO2 34, pO2 126. Electrolytes sodium 140, potassium 4.5, chloride 117, bicarbonate 16, BUN 78, creatinine 4.30. Objective - Vital Signs Vital signs: Vital Signs Temp 96.4 F L 02/12/20 16:00 Pulse 74 02/12/20 16:00 Resp 17 02/12/20 16:00 BP 126/87 02/12/20 16:00 Pulse Ox 96 02/12/20 16:00 Intake & Output 02/11/20 02/12/20 02/12/20 18:59 06:59 18:59 Intake Total 007 598 9232 Output Total 340 360 605 Balance 560 325 725 Weight 141.6 kg Intake: IV 420 756 5662 3% 610 580 Dextrose 5% in Water 1, 750 000 ml @ 75 mls/hr IV . [id number] [facility]IE with Sodium Bicarb (1 Meq/ml) 150 ml Rx#:[id number] Sodium Chloride 0.9% 1, 400 000 ml @ 50 mls/hr IV . Q20H ANN[facility]IE Rx#:[id number] Intake, IV Titration 450 75 Amount Cefepime 1 gm In Sodium 50 Chloride 0.9% 50 ml @ 12. 5 mls/hr IVPB Q12HR [facility]IE Rx#:[id number] Dextrose 5% in Water 1, 300 75 000 ml @ 75 mls/hr IV . [id number] ANNEMARIE with Sodium Bicarb (1 Meq/ml) 150 ml Rx#:[id number] Fluconazole in NaCl,Iso- 100 Osm 200 mg In Saline 1 100ml.bag @ 100 mls/hr IVPB DAILY [facility] Rx#: [id number] Oral 50 Output: Urine 340 360 605 Other: Voiding Method Indwelling Catheter Indwelling Catheter Indwelling Catheter - Exam PHYSICAL EXAM General appearance: Patient is on BiPAP with his to be no acute distress. Head exam: atraumatic, normocephalic, normal inspection. Left pupil is dilated and nonreactive. Right pupil reactive to light. Neck exam: short webbed neck Respiratory exam: decreased breath sounds on bilateral lower lung hameed, few basilar crackles. Cardiovascular Exam:regular rate, normal rhythm, normal heart sounds. GI: Obese abdominal wall, there is edema. Extremities exam: bilateral LE wrapped in PEDRO banadage, Left Upper extremity - fingers are swollen and pitting edema. CHRISTIAN SCIENCE NURSE: There are spontaneous eye movements. He is little more awake compared to yesterday. He could not trace me or follow my commands. He was grimacing with pain on touching his lower extremities, but was not able to move them. - Labs CBC & Chem 7: 02/12/20 07:33 02/12/20 12:30 Labs: Abnormal Lab Results - Last 24 Hours (Table) 02/11/20 02/12/20 02/12/20 Range/Units 19:22 00:06 00:22 RBC (4.30-5.90) m/uL Hgb (13.0-17.5) gm/dL Hct (39.0-53.0) % MCV (80.0-100.0) fL MCHC (31.0-37.0) g/dL RDW (11.5-15.5) % Lymphocytes # (1.0-4.8) k/uL Macrocytosis ABG pH (7.35-7.45) ABG pCO2 (35-45) mmHg ABG pO2 (83-108) mmHg ABG HCO3 (21-25) mmol/L ABG Total CO2 (19-24) mmol/L ABG O2 Saturation (94-97) % Chloride (98-107) mmol/L Carbon Dioxide (22-30) mmol/L BUN (9-20) mg/dL Creatinine (0.66-1.25) mg/dL Glucose (74-99) mg/dL POC Glucose (mg/dL) 189 H 189 H (75-99) mg/dL Osmolality 344 H* (280-301) mosm/kg Calcium (8.4-10.2) mg/dL Urine Protein (Negative) Urine Blood (Negative) Ur Leukocyte Esterase (Negative) Urine RBC (0-5) /hpf Urine WBC (0-5) /hpf Amorphous Sediment (None) /hpf Urine Bacteria (None) /hpf Urine Mucus (None) /hpf 02/12/20 02/12/20 02/12/20 Range/Units 06:21 07:33 07:33 RBC 2.59 L (4.30-5.90) m/uL Hgb 8.0 L (13.0-17.5) gm/dL Hct 27.6 L (39.0-53.0) % MCV 106.4 H (80.0-100.0) fL MCHC 29.0 L (31.0-37.0) g/dL RDW 18.7 H (11.5-15.5) % Lymphocytes # 0.8 L (1.0-4.8) k/uL Macrocytosis Marked A ABG pH (7.35-7.45) ABG pCO2 (35-45) mmHg ABG pO2 (83-108) mmHg ABG HCO3 (21-25) mmol/L ABG Total CO2 (19-24) mmol/L ABG O2 Saturation (94-97) % Chloride 117 H (98-107) mmol/L Carbon Dioxide 16 L (22-30) mmol/L BUN 78 H (9-20) mg/dL Creatinine 4.30 H (0.66-1.25) mg/dL Glucose 184 H (74-99) mg/dL POC Glucose (mg/dL) 233 H (75-99) mg/dL Osmolality 335 H* (280-301) mosm/kg Calcium 7.3 L (8.4-10.2) mg/dL Urine Protein (Negative) Urine Blood (Negative) Ur Leukocyte Esterase (Negative) Urine RBC (0-5) /hpf Urine WBC (0-5) /hpf Amorphous Sediment (None) /hpf Urine Bacteria (None) /hpf Urine Mucus (None) /hpf 02/12/20 02/12/20 02/12/20 Range/Units 10:08 12:15 12:19 RBC (4.30-5.90) m/uL Hgb (13.0-17.5) gm/dL Hct (39.0-53.0) % MCV (80.0-100.0) fL MCHC (31.0-37.0) g/dL RDW (11.5-15.5) % Lymphocytes # (1.0-4.8) k/uL Macrocytosis ABG pH 7.31 L (7.35-7.45) ABG pCO2 34 L (35-45) mmHg ABG pO2 126 H (83-108) mmHg ABG HCO3 17 L (21-25) mmol/L ABG Total CO2 18 L (19-24) mmol/L ABG O2 Saturation 98.5 H (94-97) % Chloride (98-107) mmol/L Carbon Dioxide (22-30) mmol/L BUN (9-20) mg/dL Creatinine (0.66-1.25) mg/dL Glucose (74-99) mg/dL POC Glucose (mg/dL) 153 H (75-99) mg/dL Osmolality (280-301) mosm/kg Calcium (8.4-10.2) mg/dL Urine Protein 1+ H (Negative) Urine Blood Moderate H (Negative) Ur Leukocyte Esterase Moderate H (Negative) Urine RBC 63 H (0-5) /hpf Urine WBC 11 H (0-5) /hpf Amorphous Sediment Rare H (None) /hpf Urine Bacteria Rare H (None) /hpf Urine Mucus Rare H (None) /hpf 02/12/20 Range/Units 12:30 RBC (4.30-5.90) m/uL Hgb (13.0-17.5) gm/dL Hct (39.0-53.0) % MCV (80.0-100.0) fL MCHC (31.0-37.0) g/dL RDW (11.5-15.5) % Lymphocytes # (1.0-4.8) k/uL Macrocytosis ABG pH (7.35-7.45) ABG pCO2 (35-45) mmHg ABG pO2 (83-108) mmHg ABG HCO3 (21-25) mmol/L ABG Total CO2 (19-24) mmol/L ABG O2 Saturation (94-97) % Chloride (98-107) mmol/L Carbon Dioxide (22-30) mmol/L BUN (9-20) mg/dL Creatinine (0.66-1.25) mg/dL Glucose (74-99) mg/dL POC Glucose (mg/dL) (75-99) mg/dL Osmolality 342 H* (280-301) mosm/kg Calcium (8.4-10.2) mg/dL Urine Protein (Negative) Urine Blood (Negative) Ur Leukocyte Esterase (Negative) Urine RBC (0-5) /hpf Urine WBC (0-5) /hpf Amorphous Sediment (None) /hpf Urine Bacteria (None) /hpf Urine Mucus (None) /hpf Assessment and Plan Assessment: ASSESSMENT Acute hypoxic respiratory failure Acute encephalopathy Global aphasia with left upper extremity weakness - possible acute stroke Anion gap metabolic acidosis Acute kidney injury Hypothyroidism Systolic CHF Severe Pulmonary HTN Acute bilateral lower extremity cellulitis failed outpatient therapy Left heel diabetic ulcer, status post debridement Osteomyelitis of the left calcaneal bone Diann albicans from the wound culture Blood in the stool Hematuria Microcytic anemia Type 2 diabetes mellitus poorly controlled with hyperglycemia Peripheral neuropathy CKD stage III Hyponatremia Hypoalbuminemia with mild protein calorie malnutrition Obstructive sleep apnea Possible obesity hypoventilation syndrome History of MRSA of the right shoulder Degenerative joint disease Morbid obesity with BMI 47.1 Plan: Patient is currently in the ICU. There could be multiple etiologies for his encephalopathy including hypothyroidism, uremia, stroke, underlying sepsis, medication induced (cefepime), underlying infection, increased intracranial pressure , hypoxic respiratory failure. Multiple consultants including ID, nephrology, vascular, pulmonary, neurology following the patient. As there was concern for increased intracranial pressure, as per neurology, patient was given a dose of mannitol on 02/11/2020 and started on 3% hypertonic saline. Continue with the curent medication regimen Overall prognosis is poor. CODE STATUS was discussed with family, sister Elma and mother. They wanted him to be DNR/DNI. As per discussion with Neurology, the family does not want any kind of procedures done and only agreeable to medications. Further recommendations to follow depending on the progress of the patient.
[2020-02-12 18:34] LABS: Glucose,Whole Blood 138 mg/dL (75-99)
[2020-02-12 20:52] LABS: Glucose,Whole Blood 146 mg/dL (75-99)
[2020-02-12] MEDS ORDERED: VANCOMYCIN IV PER PHARMACY 1 EACH MISC MISCELLANE PRN (20:54)
[2020-02-12] MEDS ORDERED: FUROSEMIDE 10 MG/ML 10 ML VIAL IV SCH (21:00)
[2020-02-12] MEDS ORDERED: DEXAMETHASONE SOD PHOSPHATE 20 MG in DEXTROSE 5% IN WATER 50 ML IV ONE ×2 (22:00)
[2020-02-12] MEDS ORDERED: VANCOMYCIN 2,250 MG in SODIUM CHLORIDE 0.9% 500 ML 500 ML IVPB ONE (22:00)
[2020-02-12 23:05] LABS: INR 1.8 (<1.2); Partial Thromboplastin Time 23.9 sec (22.0-30.0); Prothrombin Time 17.2 sec (9.0-12.0)
--- NOTE | 2020-02-12 23:34 | PN ---
PROGRESS NOTE DATE OF SERVICE: 02/12/2020 REASON FOR FOLLOWUP: Left heel osteomyelitis and lower extremity cellulitis. INTERVAL HISTORY: Patient is currently in the ICU, has been transferred because of his mental status changes and worsening respiratory status as well as kidney function. The patient is hemodynamically stable on pressor support. He was on BiPAP and he has answered some simple questions. No vomiting or diarrhea has been reported by nursing staff. The patient denies any headache or abdominal pain. PHYSICAL EXAMINATION: Blood pressure 105/56, pulse of 79, temperature 96.5. He is 98% on 30% BiPAP. General description is a middle-aged male lying in bed in no distress. RESPIRATORY SYSTEM: Unlabored breathing with decreased breath sounds in the bases. No wheeze. HEART: S1, S2. Regular rate and rhythm. ABDOMEN: Soft, no tenderness. Legs are currently wrapped up. No obvious drainage on the dressing. LABS: Hemoglobin 8, white count 5.3. BUN of 78, creatinine 4.30. DIAGNOSTIC IMPRESSION AND PLAN: 1. Patient with left heel osteomyelitis. Culture obtained on last admission was positive for Morganella, Streptococcus and anaerobes for which the patient is currently covered with cefepime and Flagyl will be continued. cellulitis that has resolved. 2. Now patient with worsening encephalopathy, more likely related to his worsening renal failure. Clinically doubt herpes encephalitis and acyclovir being added will lead to worsening of his kidney function and should be discontinued. Overall prognosis remains to be guarded. Continue with supportive care. MMODL / IJN: [id number] /
[2020-02-13] MEDS ORDERED: ACYCLOVIR SODIUM IVPB SCH ×2
[2020-02-13] MEDS ORDERED: SODIUM CHLORIDE 0.9% IVPB SCH ×2
[2020-02-13 02:09] LABS: Glucose,Whole Blood 203 mg/dL (75-99)
[2020-02-13 02:25] LABS: ABG HCO3 19 mmol/L (21-25); ABG Oxygen Saturation 94.7 % (94-97); ABG PCO2 53 mmHg (35-45); ABG PO2 92 mmHg (83-108); ABG TCO2 20 mmol/L (19-24); Allen Test Performed? Yes
[2020-02-13 02:28] LABS: ABG PH 7.16 (7.35-7.45)
[2020-02-13 03:33] LABS: Anisocytosis Slight; Basophils % (A) 1 %; Eosinophils # (A) 0.1 k/uL (0-0.7); Eosinophils % (A) 1 %; HCT 28.8 % (39.0-53.0); HGB 8.1 gm/dL (13.0-17.5); Hypochromasia Marked; Lymphocytes # (A) 0.6 k/uL (1.0-4.8); Lymphocytes % (A) 9 %; MCH 30.2 pg (25.0-35.0); MCHC 28.1 g/dL (31.0-37.0); MCV 107.4 fL (80.0-100.0); Mean Platelet Volume 9.6; Monocytes # (A) 0.1 k/uL (0-1.0); Monocytes % (A) 2 %; Neutrophils # (A) 5.4 k/uL (1.3-7.7); Neutrophils % (A) 87 %; Platelet Count 160 k/uL (150-450); Poikilocytosis Slight; RBC 2.68 m/uL (4.30-5.90); RDW 19.3 % (11.5-15.5); WBC 6.2 k/uL (3.8-10.6)
[2020-02-13 03:43] LABS: Macrocytosis Marked
[2020-02-13 03:54] LABS: Albumin 2.3 g/dL (3.5-5.0); Calcium 6.9 mg/dL (8.4-10.2); Potassium 4.6 mmol/L (3.5-5.1); Total Bilirubin 0.5 mg/dL (0.2-1.3); Total Protein 6.3 g/dL (6.3-8.2)
[2020-02-13 05:48] LABS: Glucose,Whole Blood 212 mg/dL (75-99)
[2020-02-13] MEDS: INSULIN ASPART (NovoLOG) 100 UNIT/ML VIAL SQ SCH ×3 (05:57→18:25)
[2020-02-13] MEDS: INSULN ASP PRT/INSULIN ASPART 100 UNIT/ML 10 ML VIAL SQ SCH ×2 (06:48→18:25)
[2020-02-13] MEDS: IPRATROPIUM-ALBUTEROL 3 ML NEB INHALATION SCH ×4 (07:00→19:35)
--- NOTE | 2020-02-13 07:49 | XR ---
EXAMINATION TYPE: XR chest 1V DATE OF EXAM: 02/13/2020 COMPARISON: 02/12/2020 HISTORY: 49-year-old male with hypoxic respiratory failure, difficulty breathing TECHNIQUE: Single frontal view of the chest is obtained. FINDINGS: Heart mildly moderately enlarged. Perihilar incomplete mid and lower lung airspace opacity, right gre ater than left The interval. Suspect underlying small effusions as well. IMPRESSION: Cardiomegaly with progression to pulmonary edema. Suspect underlying small effusions.
[2020-02-13] MEDS: CEFEPIME 1 GM in SODIUM CHLORIDE 0.9% 50 ML IVPB SCH (08:46)
[2020-02-13] MEDS: FLUCONAZOLE IN NACL,ISO-OSM 200 MG in SALINE 1 100ML.BAG IVPB SCH (08:47)
[2020-02-13] MEDS: THIAMINE 100 MG/ML 2 ML VIAL IVP SCH (08:47)
[2020-02-13] MEDS: PANTOPRAZOLE 40 MG/10 ML VIAL IV SCH (08:47)
[2020-02-13] MEDS: LEVOTHYROXINE IVP 100 MCG/5 ML VIAL IV SCH (08:48)
[2020-02-13] MEDS: ATORVASTATIN 40 MG TAB PO SCH (08:48)
[2020-02-13] MEDS: HEPARIN SODIUM,PORCINE 5,000 UNIT/ML 1 ML VIAL SQ SCH (08:48)
[2020-02-13] MEDS: HYDROCORTISONE 2.5% RECTAL CREAM 30 GM TUBE RECTAL SCH (08:49)
[2020-02-13] MEDS: FUROSEMIDE 100 MG in SODIUM CHLORIDE 0.9% 90 ML IV SCH ×2 (09:44→18:37)
[2020-02-13 10:24] VITALS: BMI 50.3
--- NOTE | 2020-02-13 10:55 | P.PN ---
Subjective Patient is seen in follow-up for acute kidney injury. Renal function fairly stable. Creatinine 4.4 today. Remains edematous. Maintained on IV Lasix. Currently on BiPAP. Minimally responsive to verbal commands. Has a Josue catheter. Nonoliguric. There is concern for increased intracranial pressure and is status post 3% and mannitol per neurology. Scheduled for EEG and possibly lumbar puncture today. Vital signs are stable. General: The patient appeared well nourished and normally developed. HEENT: Head exam is unremarkable. Neck is without jugular venous distension. On BiPAP. LUNGS: Breath sounds decreased. HEART: Rate and Rhythm are regular. ABDOMEN: Soft, nontender. Obese. EXTREMITITES: Wrapped. 2+ edema. Objective - Vital Signs Vital signs: Vital Signs Temp 97.8 F 02/13/20 08:00 Pulse 79 02/13/20 09:00 Resp 14 02/13/20 09:00 BP 116/69 02/13/20 09:00 Pulse Ox 99 02/13/20 09:00 Intake & Output 02/12/20 02/13/20 02/13/20 18:59 06:59 18:59 Intake Total 1580 1900 262.5 Output Total 710 625 55 Balance 870 1275 207.5 Weight 141.6 kg Intake: IV 1580 1900 262.5 3% 680 100 Acyclovir Sodium 1,400 mg 250 In Sodium Chloride 0.9% 250 ml @ 100 mls/hr IVPB Q24H [facility] Rx#:[id number] Cefepime 1 gm In Sodium 50 12.5 Chloride 0.9% 50 ml @ 12. 5 mls/hr IVPB Q12HR [facility] Rx#:[id number] Dexamethasone Sod 50 Phosphate 20 mg In Dextrose 5% in Water 50 ml @ 100 mls/hr IV ONCE ONE Rx#:[id number] Dextrose 5% in Water 1, 900 950 150 000 ml @ 75 mls/hr IV . [id number] ANNEMARIE with Sodium Bicarb (1 Meq/ml) 150 ml Rx#:[id number] Fluconazole in NaCl,Iso- 100 Osm 200 mg In Saline 1 100ml.bag @ 100 mls/hr IVPB DAILY [facility] Rx#: [id number] Vancomycin 2,250 mg In 500 Sodium Chloride 0.9% 500 ml 500 ml @ 167 mls/hr IVPB ONCE ONE Rx#: [id number] Output: Urine 710 625 55 Other: Voiding Method Indwelling Catheter Indwelling Catheter Indwelling Catheter - Labs CBC & Chem 7: 02/13/20 02:54 02/13/20 02:54 Labs: Abnormal Lab Results - Last 24 Hours (Table) 02/12/20 02/12/20 02/12/20 Range/Units 07:33 12:15 12:19 RBC (4.30-5.90) m/uL Hgb (13.0-17.5) gm/dL Hct (39.0-53.0) % MCV (80.0-100.0) fL MCHC (31.0-37.0) g/dL RDW (11.5-15.5) % Lymphocytes # (1.0-4.8) k/uL Macrocytosis PT (9.0-12.0) sec INR (<1.2) ABG pH (7.35-7.45) ABG pCO2 (35-45) mmHg ABG HCO3 (21-25) mmol/L Sodium (137-145) mmol/L Chloride (98-107) mmol/L Carbon Dioxide (22-30) mmol/L BUN (9-20) mg/dL Creatinine (0.66-1.25) mg/dL Glucose (74-99) mg/dL POC Glucose (mg/dL) 153 H (75-99) mg/dL Osmolality 335 H* (280-301) mosm/kg Calcium (8.4-10.2) mg/dL Alkaline Phosphatase (38-126) U/L Albumin (3.5-5.0) g/dL Urine Protein 1+ H (Negative) Urine Blood Moderate H (Negative) Ur Leukocyte Esterase Moderate H (Negative) Urine RBC 63 H (0-5) /hpf Urine WBC 11 H (0-5) /hpf Amorphous Sediment Rare H (None) /hpf Urine Bacteria Rare H (None) /hpf Urine Mucus Rare H (None) /hpf 02/12/20 02/12/20 02/12/20 Range/Units 12:30 18:05 18:32 RBC (4.30-5.90) m/uL Hgb (13.0-17.5) gm/dL Hct (39.0-53.0) % MCV (80.0-100.0) fL MCHC (31.0-37.0) g/dL RDW (11.5-15.5) % Lymphocytes # (1.0-4.8) k/uL Macrocytosis PT (9.0-12.0) sec INR (<1.2) ABG pH (7.35-7.45) ABG pCO2 (35-45) mmHg ABG HCO3 (21-25) mmol/L Sodium (137-145) mmol/L Chloride (98-107) mmol/L Carbon Dioxide (22-30) mmol/L BUN (9-20) mg/dL Creatinine (0.66-1.25) mg/dL Glucose (74-99) mg/dL POC Glucose (mg/dL) 138 H (75-99) mg/dL Osmolality 342 H* 336 H* (280-301) mosm/kg Calcium (8.4-10.2) mg/dL Alkaline Phosphatase (38-126) U/L Albumin (3.5-5.0) g/dL Urine Protein (Negative) Urine Blood (Negative) Ur Leukocyte Esterase (Negative) Urine RBC (0-5) /hpf Urine WBC (0-5) /hpf Amorphous Sediment (None) /hpf Urine Bacteria (None) /hpf Urine Mucus (None) /hpf 02/12/20 02/12/20 02/13/20 Range/Units 20:50 22:40 02:08 RBC (4.30-5.90) m/uL Hgb (13.0-17.5) gm/dL Hct (39.0-53.0) % MCV (80.0-100.0) fL MCHC (31.0-37.0) g/dL RDW (11.5-15.5) % Lymphocytes # (1.0-4.8) k/uL Macrocytosis PT 17.2 H (9.0-12.0) sec INR 1.8 H (<1.2) ABG pH (7.35-7.45) ABG pCO2 (35-45) mmHg ABG HCO3 (21-25) mmol/L Sodium (137-145) mmol/L Chloride (98-107) mmol/L Carbon Dioxide (22-30) mmol/L BUN (9-20) mg/dL Creatinine (0.66-1.25) mg/dL Glucose (74-99) mg/dL POC Glucose (mg/dL) 146 H 203 H (75-99) mg/dL Osmolality (280-301) mosm/kg Calcium (8.4-10.2) mg/dL Alkaline Phosphatase (38-126) U/L Albumin (3.5-5.0) g/dL Urine Protein (Negative) Urine Blood (Negative) Ur Leukocyte Esterase (Negative) Urine RBC (0-5) /hpf Urine WBC (0-5) /hpf Amorphous Sediment (None) /hpf Urine Bacteria (None) /hpf Urine Mucus (None) /hpf 02/13/20 02/13/20 02/13/20 Range/Units 02:19 02:54 02:54 RBC 2.68 L (4.30-5.90) m/uL Hgb 8.1 L (13.0-17.5) gm/dL Hct 28.8 L (39.0-53.0) % MCV 107.4 H (80.0-100.0) fL MCHC 28.1 L (31.0-37.0) g/dL RDW 19.3 H (11.5-15.5) % Lymphocytes # 0.6 L (1.0-4.8) k/uL Macrocytosis Marked A PT (9.0-12.0) sec INR (<1.2) ABG pH 7.16 L* (7.35-7.45) ABG pCO2 53 H (35-45) mmHg ABG HCO3 19 L (21-25) mmol/L Sodium 146 H (137-145) mmol/L Chloride 118 H (98-107) mmol/L Carbon Dioxide 19 L (22-30) mmol/L BUN 75 H (9-20) mg/dL Creatinine 4.44 H (0.66-1.25) mg/dL Glucose 179 H (74-99) mg/dL POC Glucose (mg/dL) (75-99) mg/dL Osmolality (280-301) mosm/kg Calcium 6.9 L (8.4-10.2) mg/dL Alkaline Phosphatase 289 H (38-126) U/L Albumin 2.3 L (3.5-5.0) g/dL Urine Protein (Negative) Urine Blood (Negative) Ur Leukocyte Esterase (Negative) Urine RBC (0-5) /hpf Urine WBC (0-5) /hpf Amorphous Sediment (None) /hpf Urine Bacteria (None) /hpf Urine Mucus (None) /hpf 02/13/20 Range/Units 05:46 RBC (4.30-5.90) m/uL Hgb (13.0-17.5) gm/dL Hct (39.0-53.0) % MCV (80.0-100.0) fL MCHC (31.0-37.0) g/dL RDW (11.5-15.5) % Lymphocytes # (1.0-4.8) k/uL Macrocytosis PT (9.0-12.0) sec INR (<1.2) ABG pH (7.35-7.45) ABG pCO2 (35-45) mmHg ABG HCO3 (21-25) mmol/L Sodium (137-145) mmol/L Chloride (98-107) mmol/L Carbon Dioxide (22-30) mmol/L BUN (9-20) mg/dL Creatinine (0.66-1.25) mg/dL Glucose (74-99) mg/dL POC Glucose (mg/dL) 212 H (75-99) mg/dL Osmolality (280-301) mosm/kg Calcium (8.4-10.2) mg/dL Alkaline Phosphatase (38-126) U/L Albumin (3.5-5.0) g/dL Urine Protein (Negative) Urine Blood (Negative) Ur Leukocyte Esterase (Negative) Urine RBC (0-5) /hpf Urine WBC (0-5) /hpf Amorphous Sediment (None) /hpf Urine Bacteria (None) /hpf Urine Mucus (None) /hpf Assessment and Plan Plan: Assessment: 1. Acute kidney injury secondary to ATN secondary to infection. Also received IV contrast on February 10. Creatinine 4.4 today. Currently has Josue catheter. Baseline creatinine near 1. Patient has been on hemodialysis in the past and the permacath was removed due to recovered renal function. No hydronephrosis noted on kidney ultrasound. 2. Left heel osteomyelitis maintained on antibiotics per infectious disease. Will need further debridement. 3. Insulin-dependent diabetes mellitus. 4. Volume overload. 5. History of MRSA pneumonia. 6. Metabolic acidosis secondary to acute kidney injury. Maintained on bicarb drip. Better. 7. Anemia. Iron replete. Maintained on Aranesp. 8. Concern for increased intracranial pressure. Currently maintained on 3% drip and also received mannitol per neurology. 9. Acute hypoxic respiratory failure. Currently on BiPAP. 10. Acute on chronic systolic CHF with ejection fraction of 45-50% with severe tricuspid regurgitation and pulmonary hypertension. Plan: Start Lasix drip at 10 mL an hour. Decrease bicarb drip to 50 mL an hour. Strict I's and O's. Continue to monitor renal function and urine output. Avoid nephrotoxins.
[2020-02-13] MEDS: DEXTROSE 5% IN WATER 1,000 ML with SODIUM BICARB (1 MEQ/ML) 150 ML IV SCH (11:15)
[2020-02-13 11:51] LABS: Glucose,Whole Blood 218 mg/dL (75-99)
[2020-02-13] MEDS: FOLIC ACID 1 MG TAB PO SCH (12:06)
[2020-02-13] MEDS ORDERED: VANCOMYCIN 2,250 MG in SODIUM CHLORIDE 0.9% 500 ML 500 ML IVPB ONE (14:00)
--- NOTE | 2020-02-13 14:56 | P.PN ---
Subjective Progress Note Date: 02/13/20 Principal diagnosis: Acute hypoxic respiratory failure Global aphasia, cellulitis, and sepsis This is a 49-year-old white male patient with history of diabetes mellitus type 2, obstructive sleep apnea on CPAP, chronic CHF, previous history of MRSA infection, chronic anemia, who presented to the hospital on 02/02/2020 per EMS for evaluation of worsening cellulitis involving his left heel wound that was recently treated with antibiotics during his recent hospitalization. His both legs were blistering, popping with increased redness, patient was having fever, chills. Patient was receiving IV antibiotics at home, and home care was doing wound care for his bilateral lower extremity wounds. Patient has not been able to ambulate. patient had previously had surgical debridement of his left heel that was infected with maggots. Nuclear bone scan on 2019 showed fi ndings highly suspicious for osteomyelitis of the left os calcis. patient was being treated with antibiotics, ID service was following, patient was on a combination of cefepime, and Flagyl. Wound cultures from his left and right leg wounds showed Diann. Patient developed acute kidney injury, he previously was on hemodialysis for short period of time a few months ago. Nephrology was consulted for worsening renal function and worsening peripheral edema. In the past few days since 02/08/2020, patient was noted to be less responsive, not responding verbally, only oriented to person. On 02/09/2020 COde Stroke was activated, brain CT showed no acute intracranial hemorrhage or midline shift, there was a mild diffuse cerebral atrophy and moderate chronic small vessel ischemic changes. carotid Doppler showed no hemodynamically significant stenosis. echocardiogram showed moderate concentric LVH, EF of 45-50%, anterior atrial an intraventricular septum intact, no evidence of aortic stenosis, mild MR, severe pulmonary hypertension with severe tricuspid regurgitation with right-sided pressures of 76 mmHg. Patient's mentation continued to deteriorate, today patient is not speaking at all, he appears to have left-sided anisocoria, he is lethargic, x-ray shows perihilar airspace disease, small lung volumes. Patient was placed on BiPAP support although he was very agitated, and Taken off the BiPAP and desaturating into the low 80s. His consult was initiated with regards to worsening respiratory status. Blood gas has been obtained and reviewed showing pO2 of 53, pCO2 of 36, and pH of 7.19 and this was done on FiO2 of 28% per nasal cannula. Patient was reevaluated today on 02/12/20, patient was transferred yesterday to the ICU, could not get MRI because of his body habitus. Patient had CT angiogram of the head and neck, and was basically nondiagnostic. The neurologist was concerned about his anisocoria, still concerned about the possibility of stroke, and he recommended 3% saline and gave him 1 dose of mannitol. Patient was placed on BiPAP overnight, remains on BiPAP, remains globally aphasic. Does not seem to be in any form of respiratory distress. Noted to move upper extremities bilaterally spontaneously and symmetrically. Did not seem to move lower extremities. CODE STATUS has been changed by family to DO NOT RESUSCITATE CODE STATUS. And today I had a chance to discuss his condition with the neurologist and with the prosthetic assistant on the case. Remains on sodium bicarb drip, and that is being addressed by nephrology on the case. ABG this morning showed a pO2 of 126 pCO2 of 34 pH of 7.31. WBC count is 5.3 hemoglobin is 8. Patient was reevaluated today on 02/13/20, patient remains the same, he is aphasic, opens eyes, does not follow any instructions and does not verbalize. Remains edematous, and he was placed on Lasix drip today. Remains on BiPAP. Neurology is concerned about increased intracranial pressure, and he was given mannitol and 3% saline yesterday. Discussed with the neurologist, he is considering EEG, and he is discussing the option of lumbar puncture. However his guardian may or may not approve the lumbar puncture. In the meantime the patient remains on broad-spectrum antibiotics, and not much of a change noted since yesterday. WBC count is 6.2 hemoglobin is 8.1 ABG showed a pO2 of 92 pCO2 of 53 pH of 7.16, and I have recommended that the patient goes on CPAP of also recommended a Lasix drip. Patient was placed on a last night. However I changed this to CPAP at 16 cm water pressure. Objective - Vital Signs Vital signs: Vital Signs Temp 97.4 F L 02/13/20 12:00 Pulse 82 02/13/20 14:00 Resp 12 02/13/20 14:00 BP 132/90 02/13/20 14:00 Pulse Ox 98 02/13/20 14:00 Intake & Output 02/12/20 02/13/20 02/13/20 18:59 06:59 18:59 Intake Total 1580 1900 612.5 Output Total 710 625 360 Balance 870 1275 252.5 Weight 141.6 kg Intake: IV 1580 1900 612.5 3% 680 100 Acyclovir Sodium 1,400 mg 250 In Sodium Chloride 0.9% 250 ml @ 100 mls/hr IVPB Q24H [facility] Rx#:[id number] Cefepime 1 gm In Sodium 50 62.5 Chloride 0.9% 50 ml @ 12. 5 mls/hr IVPB Q12HR [facility] Rx#:[id number] Dexamethasone Sod 50 Phosphate 20 mg In Dextrose 5% in Water 50 ml @ 100 mls/hr IV ONCE ONE Rx#:[id number] Dextrose 5% in Water 1, 900 950 400 000 ml @ 50 mls/hr IV . Q23H [facility] with Sodium Bicarb (1 Meq/ml) 150 ml Rx#:[id number] Fluconazole in NaCl,Iso- 100 Osm 200 mg In Saline 1 100ml.bag @ 100 mls/hr IVPB DAILY [facility] Rx#: [id number] Furosemide 100 mg In 50 Sodium Chloride 0.9% 90 ml @ 10 MG/HR 10 mls/hr IV .Q10H [facility] Rx#: [id number] Vancomycin 2,250 mg In 500 Sodium Chloride 0.9% 500 ml 500 ml @ 167 mls/hr IVPB ONCE ONE Rx#: [id number] Output: Urine 710 625 360 Other: Voiding Method Indwelling Catheter Indwelling Catheter Indwelling Catheter - Exam GENERAL EXAM: Revealed 49-year-old white male aphasic, does not follow any instructions, on avaps changed to CPAP HEAD: Normocephalic/atraumatic. EYES: Normal reaction of pupils, left pupil measuring 5 mm, mildly reactive to light, right pupil is 2 mm in diameter reactive. Conjunctiva pink, sclera white. NOSE: Clear with pink turbinates. THROAT: No erythema or exudates. NECK: No masses, no JVD, no thyroid enlargement, no adenopathy. CHEST: No chest wall deformity. Symmetrical expansion. LUNGS: Equal air entry with no crackles, wheeze, rhonchi or dullness. Diminishe d breath sounds at the bases. CVS: Regular rate and rhythm, normal S1 and S2, no gallops, no murmurs, no rubs ABDOMEN: Soft, nontender. No hepatosplenomegaly, normal bowel sounds, no guarding or rigidity. EXTREMITIES: No clubbing, significant edema involving upper and lower extremities, no cyanosis, 2+ pulses and upper and lower extremities. bilateral lower extremities covered with dressings MUSCULOSKELETAL: Muscle strength and tone normal. SPINE: No scoliosis or deformity SKIN: No rashes CENTRAL NERVOUS SYSTEM: obtunded, stuporous, obese, 49-year-old white male does not follow any instructions. Globally aphasic, and nonverbal. Psychiatric: Could not be assessed. Patient is almost catatonic. - Labs CBC & Chem 7: 02/13/20 02:54 02/13/20 02:54 Labs: Abnormal Lab Results - Last 24 Hours (Table) 02/12/20 02/12/20 02/12/20 Range/Units 18:05 18:32 20:50 RBC (4.30-5.90) m/uL Hgb (13.0-17.5) gm/dL Hct (39.0-53.0) % MCV (80.0-100.0) fL MCHC (31.0-37.0) g/dL RDW (11.5-15.5) % Lymphocytes # (1.0-4.8) k/uL Macrocytosis PT (9.0-12.0) sec INR (<1.2) ABG pH (7.35-7.45) ABG pCO2 (35-45) mmHg ABG HCO3 (21-25) mmol/L Sodium (137-145) mmol/L Chloride (98-107) mmol/L Carbon Dioxide (22-30) mmol/L BUN (9-20) mg/dL Creatinine (0.66-1.25) mg/dL Glucose (74-99) mg/dL POC Glucose (mg/dL) 138 H 146 H (75-99) mg/dL Osmolality 336 H* (280-301) mosm/kg Calcium (8.4-10.2) mg/dL Alkaline Phosphatase (38-126) U/L Albumin (3.5-5.0) g/dL 02/12/20 02/13/20 02/13/20 Range/Units 22:40 02:08 02:19 RBC (4.30-5.90) m/uL Hgb (13.0-17.5) gm/dL Hct (39.0-53.0) % MCV (80.0-100.0) fL MCHC (31.0-37.0) g/dL RDW (11.5-15.5) % Lymphocytes # (1.0-4.8) k/uL Macrocytosis PT 17.2 H (9.0-12.0) sec INR 1.8 H (<1.2) ABG pH 7.16 L* (7.35-7.45) ABG pCO2 53 H (35-45) mmHg ABG HCO3 19 L (21-25) mmol/L Sodium (137-145) mmol/L Chloride (98-107) mmol/L Carbon Dioxide (22-30) mmol/L BUN (9-20) mg/dL Creatinine (0.66-1.25) mg/dL Glucose (74-99) mg/dL POC Glucose (mg/dL) 203 H (75-99) mg/dL Osmolality (280-301) mosm/kg Calcium (8.4-10.2) mg/dL Alkaline Phosphatase (38-126) U/L Albumin (3.5-5.0) g/dL 02/13/20 02/13/20 02/13/20 Range/Units 02:54 02:54 05:46 RBC 2.68 L (4.30-5.90) m/uL Hgb 8.1 L (13.0-17.5) gm/dL Hct 28.8 L (39.0-53.0) % MCV 107.4 H (80.0-100.0) fL MCHC 28.1 L (31.0-37.0) g/dL RDW 19.3 H (11.5-15.5) % Lymphocytes # 0.6 L (1.0-4.8) k/uL Macrocytosis Marked A PT (9.0-12.0) sec INR (<1.2) ABG pH (7.35-7.45) ABG pCO2 (35-45) mmHg ABG HCO3 (21-25) mmol/L Sodium 146 H (137-145) mmol/L Chloride 118 H (98-107) mmol/L Carbon Dioxide 19 L (22-30) mmol/L BUN 75 H (9-20) mg/dL Creatinine 4.44 H (0.66-1.25) mg/dL Glucose 179 H (74-99) mg/dL POC Glucose (mg/dL) 212 H (75-99) mg/dL Osmolality (280-301) mosm/kg Calcium 6.9 L (8.4-10.2) mg/dL Alkaline Phosphatase 289 H (38-126) U/L Albumin 2.3 L (3.5-5.0) g/dL 02/13/20 Range/Units 11:49 RBC (4.30-5.90) m/uL Hgb (13.0-17.5) gm/dL Hct (39.0-53.0) % MCV (80.0-100.0) fL MCHC (31.0-37.0) g/dL RDW (11.5-15.5) % Lymphocytes # (1.0-4.8) k/uL Macrocytosis PT (9.0-12.0) sec INR (<1.2) ABG pH (7.35-7.45) ABG pCO2 (35-45) mmHg ABG HCO3 (21-25) mmol/L Sodium (137-145) mmol/L Chloride (98-107) mmol/L Carbon Dioxide (22-30) mmol/L BUN (9-20) mg/dL Creatinine (0.66-1.25) mg/dL Glucose (74-99) mg/dL POC Glucose (mg/dL) 218 H (75-99) mg/dL Osmolality (280-301) mosm/kg Calcium (8.4-10.2) mg/dL Alkaline Phosphatase (38-126) U/L Albumin (3.5-5.0) g/dL Assessment and Plan Assessment: #1. Acute hypoxic respiratory failure, possible sepsis, likely source is his cellulitis and osteomyelitis. obesity hypoventilation syndrome, doubt pneumonia based on chest x-ray. #2. Global aphasia and left upper extremity weakness, possibly related to acute stroke, neurology is following, concerned about increase in intracranial pressure. #3. Acute non-anion gap metabolic acidosis, related to acute kidney injury #4. 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 Hypothyroidism, started on levothyroxin, remains on levothyroxine at 100 g IV push daily #6. Severe pulmonary hypertension with severe tricuspid regurgitation, likely secondary to underlying obstructive sleep apnea and chronic hypoxic respiratory failure #7. recent hospitalization for bilateral leg cellulitis and heel ulcers, status post surgical debridement, patient had a PICC line placed and discharged home on IV antibiotics #8. Diabetes mellitus type 2 with diabeticneuropathy #9. Chronic congestive heart failure, with diastolic dysfunction #10. Previous history of MRSA infection #11. Chronic kidney disease stage III, previously on hemodialysis for short period of time #12. History of sleep apnea, unclear whether or not patient is compliant with CPAP #13. History o degenerative joint disease #14. Medical debility, gait dysfunction Recommendation: Placed on CPAP. Continue antibiotics as per infectious disease on the case. Continue to monitor neurologically, discussed his neurological status with the neurologist, considering lumbar puncture. Continue supportive care measures. Consider comfort care measures if family is agreeable. Overall prognosis seems to be relatively guarded, we'll continue to follow while in the ICU Continue GI and DVT prophylaxis. Time with Patient: Less than 30
--- NOTE | 2020-02-13 17:06 | EEG ---
ELECTROENCEPHALOGRAM REPORT DATE OF SERVICE: 02/13/2020. CLINICAL HISTORY: This is a 49-year-old gentleman with history of diabetes, cellulitis, osteomyelitis that is admitted to the hospital on 02/02/2020 for uncontrolled lower extremity infection who has altered mental status change. This EEG was obtained to evaluate for seizure and epileptiform activity. RELEVANT MEDICATION: The patient is not on any antihypertensive medication. EEG TYPE: A routine 21 channel EEG was performed with video using the 10-20 electrode placement. DESCRIPTION: Awake is only obtained. During stimulated state, the background consists of diffuse moderate voltage 2 to 2.5 delta activity, occasionally times intermixed with theta activity that is semi-rhythmic to arrhythmic. Also during stimulated state, the patient had anterior to posterior lag with triphasic morphology which was not seen during unstimulated state. There is no stage 2 sleep architecture seen. There is significant myogenic artifact obscuring the bilateral frontal lead. Interictal and ictal none. Activation procedure was not performed. The photic stimulation and hyperventilation was not performed since the patient is on BiPAP. EEG diagnosis is this is an abnormal EEG during the awake state due to: 1. Triphasic morphology. 2. Diffuse 2 to 2.5 hertz delta activity that is semi-rhythmic to arrhythmic. 3. Myogenic artifact. CLINICAL INTERPRETATION: This is an abnormal routine EEG study suggestive of moderate to severe encephalopathy of unspecified etiology. The triphasic morphology is likely due to toxic metabolic encephalopathy. There is no epileptiform discharges. No focal slowing. There is no clear seizure activity seen. Clinical correlation is recommended. RECOMMENDATION: If there is suspicion for seizure, recommend repeating the EEG. ESTEVAN / NIMESHN: [id number] / ROSY
--- NOTE | 2020-02-13 17:21 | PN ---
PROGRESS NOTE DATE OF SERVICE: 02/13/2020 REASON FOR FOLLOWUP: Left heel osteomyelitis and bilateral lower extremity cellulitis. INTERVAL HISTORY: The patient is currently afebrile. The patient is hemodynamically stable, not on pressor support. The patient is currently on a BiPAP. He is lethargic but arousable. Was unable to provide any history. No vomiting or diarrhea or any other changes reported by nursing staff. PHYSICAL EXAMINATION: Blood pressure 130/84 with a pulse of 80, temperature 97.4. He is 97% on BiPAP. General description is a middle-aged male lying in bed in no distress. Respiratory system: Unlabored breathing, clear to auscultation with no wheeze. Heart S1, S2. Regular rate and rhythm. Abdomen soft, no tenderness. Legs are currently wrapped up. No obvious drainage on the dressing. LABS: Hemoglobin 8.1, white count 6.2, BUN of 75, creatinine 4.44. DIAGNOSTIC IMPRESSION AND PLAN: Patient with left heel osteomyelitis with cultures positive for Morganella, strep and anaerobes and patient is covered with cefepime and vancomycin has been added. However, in view of his overall clinical picture, not suggestive of sepsis or herpes encephalitis. We will discontinue the vancomycin as well as acyclovir. Local care to continue as ordered. Continue supportive care. MMODL / IJN: [id number] /
[2020-02-13 17:32] LABS: Folate, Serum 16.3 ng/mL
[2020-02-13 17:46] LABS: Glucose,Whole Blood 239 mg/dL (75-99)
[2020-02-13 19:06] VITALS: BP 126/86
[2020-02-13 19:53] VITALS: PULSE 87
[2020-02-13 20:28] VITALS: RESP 19; TEMP 97.8
--- NOTE | 2020-02-13 21:24 | P.PN ---
Subjective Progress Note Date: 02/13/20 Principal diagnosis: Global aphasia and dilated left pupil The patient was seen at bedside and he continues to be on BiPAP. Per the patient's ICU nurse, there is no difference the today compared to yesterday. I stopped that 3% hypertonic saline yesterday and I started the patient on vancomycin acyclovir and ampicillin to treat the him for empiric Meningitis. Objective - Vital Signs Vital signs: Vital Signs Temp 97.8 F 02/13/20 20:00 Pulse 87 02/13/20 20:00 Resp 19 02/13/20 20:00 BP 126/86 02/13/20 20:00 Pulse Ox 98 02/13/20 20:00 Intake & Output 02/13/20 02/13/20 02/14/20 06:59 18:59 06:59 Intake Total 1900 931.333 110 Output Total 625 615 170 Balance 1275 316.333 -60 Weight 141.6 kg Intake: IV 1900 842.5 110 3% 100 Acyclovir Sodium 1,400 mg 250 In Sodium Chloride 0.9% 250 ml @ 100 mls/hr IVPB Q24H [facility] Rx#:[id number] Cefepime 1 gm In Sodium 50 62.5 Chloride 0.9% 50 ml @ 12. 5 mls/hr IVPB Q12HR [facility] Rx#:[id number] Dexamethasone Sod 50 Phosphate 20 mg In Dextrose 5% in Water 50 ml @ 100 mls/hr IV ONCE ONE Rx#:[id number] Dextrose 5% in Water 1, 950 600 100 000 ml @ 50 mls/hr IV . Q23H [facility] with Sodium Bicarb (1 Meq/ml) 150 ml Rx#:[id number] Fluconazole in NaCl,Iso- 100 Osm 200 mg In Saline 1 100ml.bag @ 100 mls/hr IVPB DAILY [facility] Rx#: [id number] Furosemide 100 mg In 80 10 Sodium Chloride 0.9% 90 ml @ 10 MG/HR 10 mls/hr IV .Q10H [facility] Rx#: [id number] Vancomycin 2,250 mg In 500 Sodium Chloride 0.9% 500 ml 500 ml @ 167 mls/hr IVPB ONCE ONE Rx#: [id number] Intake, IV Titration 88.833 Amount Furosemide 100 mg In 88.833 Sodium Chloride 0.9% 90 ml @ 10 MG/HR 10 mls/hr IV .Q10H [facility] Rx#: [id number] Output: Urine 625 615 170 Other: Voiding Method Indwelling Catheter Indwelling Catheter Indwelling Catheter - Exam GENERAL: The patient is lying in bed and is in moderate distress. HENT: +stiffness of neck. LUNG: Clear to auscultation bilaterally no wheezing noted throughout. Not labored breathing. ABDOMEN/GI: Bowel sounds present in all 4 quadrants. NEUROLOGICAL: Limited because of patient condition. Higher mental function: The patient is awake and not responding to any questions or following command. Global aphasia. Cranial nerves: The pupils are round, right pupil 2-3mm and left is about 4-5-mm and are sluggishly reactive to light bilaterally. Visual field are intact to threat. Extraocular movement: patient not tracking thru the room just looking fowrard. Faical sensation could not assess. No facial weakness appreciated. Motor: Gait is defered. The strength could not assess because of his pain. No spontaneous movement noted in bilateral upper and lower extremities. Has increase tone on left upper >right upper extremities but seemed improved compare d to yesterday. Normal bulk. Sensation: Could not assess because of condition but seems to have intact painful stimuli throughout. Reflexes (right/left): Biceps 2+, Brachioradialis 3+ bilaterally, triceps could not assess. Could not assess lower because of patient pain and had wrapping around from his underlying infection. Plantar: Mute bilaterally - Labs CBC & Chem 7: 02/13/20 02:54 02/13/20 02:54 Labs: Abnormal Lab Results - Last 24 Hours (Table) 02/12/20 02/13/20 02/13/20 Range/Units 22:40 02:08 02:19 RBC (4.30-5.90) m/uL Hgb (13.0-17.5) gm/dL Hct (39.0-53.0) % MCV (80.0-100.0) fL MCHC (31.0-37.0) g/dL RDW (11.5-15.5) % Lymphocytes # (1.0-4.8) k/uL Macrocytosis PT 17.2 H (9.0-12.0) sec INR 1.8 H (<1.2) ABG pH 7.16 L* (7.35-7.45) ABG pCO2 53 H (35-45) mmHg ABG HCO3 19 L (21-25) mmol/L Sodium (137-145) mmol/L Chloride (98-107) mmol/L Carbon Dioxide (22-30) mmol/L BUN (9-20) mg/dL Creatinine (0.66-1.25) mg/dL Glucose (74-99) mg/dL POC Glucose (mg/dL) 203 H (75-99) mg/dL Calcium (8.4-10.2) mg/dL Alkaline Phosphatase (38-126) U/L Albumin (3.5-5.0) g/dL Vitamin B12 (200.0-944.0) pg/mL 02/13/20 02/13/20 02/13/20 Range/Units 02:54 02:54 02:54 RBC 2.68 L (4.30-5.90) m/uL Hgb 8.1 L (13.0-17.5) gm/dL Hct 28.8 L (39.0-53.0) % MCV 107.4 H (80.0-100.0) fL MCHC 28.1 L (31.0-37.0) g/dL RDW 19.3 H (11.5-15.5) % Lymphocytes # 0.6 L (1.0-4.8) k/uL Macrocytosis Marked A PT (9.0-12.0) sec INR (<1.2) ABG pH (7.35-7.45) ABG pCO2 (35-45) mmHg ABG HCO3 (21-25) mmol/L Sodium 146 H (137-145) mmol/L Chloride 118 H (98-107) mmol/L Carbon Dioxide 19 L (22-30) mmol/L BUN 75 H (9-20) mg/dL Creatinine 4.44 H (0.66-1.25) mg/dL Glucose 179 H (74-99) mg/dL POC Glucose (mg/dL) (75-99) mg/dL Calcium 6.9 L (8.4-10.2) mg/dL Alkaline Phosphatase 289 H (38-126) U/L Albumin 2.3 L (3.5-5.0) g/dL Vitamin B12 1662.0 H (200.0-944.0) pg/mL 02/13/20 02/13/20 02/13/20 Range/Units 05:46 11:49 17:44 RBC (4.30-5.90) m/uL Hgb (13.0-17.5) gm/dL Hct (39.0-53.0) % MCV (80.0-100.0) fL MCHC (31.0-37.0) g/dL RDW (11.5-15.5) % Lymphocytes # (1.0-4.8) k/uL Macrocytosis PT (9.0-12.0) sec INR (<1.2) ABG pH (7.35-7.45) ABG pCO2 (35-45) mmHg ABG HCO3 (21-25) mmol/L Sodium (137-145) mmol/L Chloride (98-107) mmol/L Carbon Dioxide (22-30) mmol/L BUN (9-20) mg/dL Creatinine (0.66-1.25) mg/dL Glucose (74-99) mg/dL POC Glucose (mg/dL) 212 H 218 H 239 H (75-99) mg/dL Calcium (8.4-10.2) mg/dL Alkaline Phosphatase (38-126) U/L Albumin (3.5-5.0) g/dL Vitamin B12 (200.0-944.0) pg/mL Assessment and Plan Assessment: Global Aphasia, moving the right upper extremity > left upper extremity and dilated left pupil that is non-reactive: 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 No aneurysm and no acute ischemia seen on CT head. Acute kidney injury Osteomyelitis of the calcaneus status post debridement Cellulitis of both lower extremities Long-standing history of diabetes mellitus Plan: CT of the head on 02/09/2020 was reported as no acute intracranial hemorrhage or midline shift. There is midline diffuse cerebral atrophy and moderate chronic small vessel ischemic change noted. Possible left greater than the right mastoiditis correlate clinically CT head on 02/10/2020: Did not reveal any acute ischemia, intraparechymal bleed or mass effect. Patient cannot get MRI Brain because of body habitus. Carotid duplex: No hemodynamic significant stenosis of the proximal internal carotid arteries. CT angiogram of the head and neck on 02/11/20 was reported as CTA of the head and neck stat to rule out any aneurysm which he received yesterday and the was reported as O significant stenosis in the common internal carotid artery bila terally. Unable to get MRI because of the patient body habitus. Patient received a stat dose of mannitol dose on 02/11/20 and was started on 3% saline. Currently at 60cc hour with goal sodium of 145-155. Last sodium is 143. And osmolality 344. Upon reviewing the CT of the head on both 08 at 2019 and 02/09/2020 I felt there was a slight loss of padilla and white matter differentiation there was enlargement of ventricles ventricles lateral third and fourth ventricle. There is no other images of the brain that I can compared to prior to this admission. I contacted the the CT reading radiologist today (02/12/20) and I notified him to review the images and my concerns for enlargement of the ventricles as well as the loss of padilla and white matter differentiation as well as the CTA. Read ing radiologist felt like the there is no loss of padilla and white matter differentiation and said the ventricles were not dilated in proportion to the patient's atrophy. He did feel like maybe the patient had some encephalomalacia on the right frontal or near the frontal area. He did not feel the patient was herniating. 2Decho: Ejection fraction of 45-50%. Left atrium is moderately dilated. Mo derate concentric left ventricular hypertrophy. Mild global hypokinesis of left ventricle. lipid profile: T, cholestrol 151, LDL 107 and HDL: 16. TSH: 83.60 and Free T4: 0.29. Recommend PT/OT , cardiac monitoring. Ammonia level: 16 Her white blood cells 5.3. Sodium is 143 Patient is currently on ASA 81mg and on Lipitor 40mg daily. Because of the patient history of cellulitis of lower extremities, osteomyelitis and history of diabetes and the stiff neck was cleansed concerned that the patient has meningeal encephalitis. Therefore I started the patient on empiric antibiotic as well as acyclovir on 02/12/2020. I also gave the patient stat steroids on 02/12/2020. Consider covering for fungal infection such as amphotericin because of the patient history of diabetes, but will defer to the ID team I placed a consult for intervention radiology for lumbar puncture on 02/12/2020 at night. The nurse contacted the patient's sister and that she declined for the patient to have the lumbar puncture. I also spoke with the patient's sister on 02/12/2020 and she said that she want any interventional procedures performed on the the patient. I ordered EEG to rule out any seizure. Infection disease is on board Regarding management of osteomyelitis will defer to Infection disease team and Primary team. Regarding management of patient of hypothyroidism and respiratory issue will defer it to primary team. Code status: DO NOT INTUBATE and DO NOT RESUSCITATE. Plan was discussed with primary team and ICU team. Cristian Brown MD Neuro-hospitalist. Time with Patient: Greater than 30
--- NOTE | 2020-02-27 01:19 | P.DS ---
Providers Date of admission: 02/02/20 13:56 Expected date of discharge: 02/13/20 Attending physician: Juan Diego De La Torre Consults: 02/02/20 14:04 Consult Physician Urgent Consulting Provider: Caleb Hernández Consult Reason/Comments: Left calcaneus osteomyelitis Do you want consulting provider notified?: Yes 02/02/20 17:11 Consult Physician Urgent Consulting Provider: Yasemin Ohara Consult Reason/Comments: osteomyelitis Do you want consulting provider notified?: Already Contacted 02/03/20 09:02 Consult Physician Routine Consulting Provider: Jasbir Rodney Consult Reason/Comments: eval for inpatient rehab Do you want consulting provider notified?: Yes 02/08/20 14:02 Consult Physician Routine Consulting Provider: Darnell Bosch Consult Reason/Comments: elevated BUN and creatinine Do you want consulting provider notified?: Yes 02/10/20 00:48 Consult Physician Routine Consulting Provider: Sofi Candelario Consult Reason/Comments: TIA/Stroke Do you want consulting provider notified?: Yes 02/10/20 13:42 Consult Physician Urgent Consulting Provider: Cristian Brown Consult Reason/Comments: neuro changes Do you want consulting provider notified?: Yes 02/11/20 10:22 Consult Physician Stat Consulting Provider: Maxim Samson Consult Reason/Comments: low O2 sats Do you want consulting provider notified?: Yes Primary care physician: Edson Urias Patient Condition at Discharge: Serious Plan - Discharge Summary Discharge Rx Participant: No New Discharge Prescriptions: No Action Multivitamins, Thera [Multivitamin (formulary)] 1 tab PO DAILY Aspirin [[place] Aspirin EC] 81 mg PO DAILY Famotidine [Pepcid] 20 mg PO Q12HR 30 Days #60 tab metroNIDAZOLE [Flagyl] 500 mg PO Q8HR #90 tab Acetaminophen [Tylenol] 650 mg PO Q8H PRN PRN Reason: Pain Spironolactone [Aldactone] 25 mg PO DAILY Lisinopril [Zestril] 10 mg PO DAILY Furosemide [Lasix] 20 mg PO DAILY Levothyroxine Sodium [Synthroid] 150 mcg PO DAILY Carvedilol [Coreg] 12.5 mg PO BID Insulin Regular, Human [humulin R U-500 Kwikpen] 110 unit SQ BID Cefepime [Maxipime] 2 gm IVPB Q12HR Discharge Medication List Aspirin [[place] Aspirin EC] 81 mg PO DAILY 01/24/20 [History] Multivitamins, Thera [Multivitamin (formulary)] 1 tab PO DAILY 01/24/20 [History] Famotidine [Pepcid] 20 mg PO Q12HR 30 Days #60 tab 01/30/20 [Rx] metroNIDAZOLE [Flagyl] 500 mg PO Q8HR #90 tab 01/30/20 [Rx] Acetaminophen [Tylenol] 650 mg PO Q8H PRN 02/02/20 [History] Carvedilol [Coreg] 12.5 mg PO BID 02/13/20 [History] Cefepime [Maxipime] 2 gm IVPB Q12HR 02/13/20 [History] Furosemide [Lasix] 20 mg PO DAILY 02/13/20 [History] Insulin Regular, Human [humulin R U-500 Kwikpen] 110 unit SQ BID 02/13/20 [History] Levothyroxine Sodium [Synthroid] 150 mcg PO DAILY 02/13/20 [History] Lisinopril [Zestril] 10 mg PO DAILY 02/13/20 [History] Spironolactone [Aldactone] 25 mg PO DAILY 02/13/20 [History] Follow up Appointment(s)/Referral(s): Edson Urias MD [Primary Care Provider] - 1-2 days Activity/Diet/Wound Care/Special Instructions: Follow in wound care clinic with Dr. Hernández for left heel. Daily dressing change- therahoney to left heel wound. Aquacel Ag,4x4, krilex ari to morena leg over areas Discharge Disposition: HOME WITH HOSPICE
== END 2020-02-13 21:18 | disposition hospice, inpatient (51) | DRG 871 ==
LOC: EC 11:21 → 3SCARD 13:56 → 4SSUR 02-04 19:17 → 2SICU 02-11 12:37
PROVIDERS: ADMIT Hospitalist; ATTEND Hospitalist
PROC: 5A09457 Assistance with Respiratory Ventilation, 24-96 Consecutive Hours, Continuous Positive Airway Pressure (ICD-10-PCS; principal; 2020-02-11)
DX: A41.9 Sepsis, unspecified organism (principal); L89.624 Pressure ulcer of left heel, stage 4; G03.9 Meningitis, unspecified; I50.43 Acute on chronic combined systolic (congestive) and diastolic (congestive) heart failure; I63.9 Cerebral infarction, unspecified; J96.21 Acute and chronic respiratory failure with hypoxia; N17.0 Acute kidney failure with tubular necrosis; R40.2344 Coma scale, best motor response, flexion withdrawal, 24 hours or more after hospital admission; R40.2124 Coma scale, eyes open, to pain, 24 hours or more after hospital admission; R40.2214 Coma scale, best verbal response, none, 24 hours or more after hospital admission; E44.1 Mild protein-calorie malnutrition; E66.2 Morbid (severe) obesity with alveolar hypoventilation; E87.1 Hypo-osmolality and hyponatremia; E87.2 Acidosis; G93.40 Encephalopathy, unspecified; L03.115 Cellulitis of right lower limb; L03.116 Cellulitis of left lower limb; M86.172 Other acute osteomyelitis, left ankle and foot; B37.89 Other sites of candidiasis; R47.01 Aphasia; Z68.42 Body mass index [BMI] 45.0-49.9, adult; Z20.828 Contact with and (suspected) exposure to other viral communicable diseases; Z51.5 Encounter for palliative care; Z66 Do not resuscitate; E11.42 Type 2 diabetes mellitus with diabetic polyneuropathy; E11.628 Type 2 diabetes mellitus with other skin complications; E11.621 Type 2 diabetes mellitus with foot ulcer; E11.22 Type 2 diabetes mellitus with diabetic chronic kidney disease; D50.9 Iron deficiency anemia, unspecified; D53.9 Nutritional anemia, unspecified; E03.9 Hypothyroidism, unspecified; L97.509 Non-pressure chronic ulcer of other part of unspecified foot with unspecified severity; E11.65 Type 2 diabetes mellitus with hyperglycemia; E11.69 Type 2 diabetes mellitus with other specified complication; D63.1 Anemia in chronic kidney disease; F41.9 Anxiety disorder, unspecified; I27.20 Pulmonary hypertension, unspecified; G31.9 Degenerative disease of nervous system, unspecified; H57.02 Anisocoria; H57.04 Mydriasis; I07.1 Rheumatic tricuspid insufficiency; M19.90 Unspecified osteoarthritis, unspecified site; N18.3 Chronic kidney disease, stage 3 (moderate); Z79.2 Long term (current) use of antibiotics; Z79.4 Long term (current) use of insulin; Z79.82 Long term (current) use of aspirin; L89.892 Pressure ulcer of other site, stage 2; Z80.8 Family history of malignant neoplasm of other organs or systems; Z86.14 Personal history of Methicillin resistant Staphylococcus aureus infection; Z87.01 Personal history of pneumonia (recurrent); Z88.1 Allergy status to other antibiotic agents; Z91.14 Patient's other noncompliance with medication regimen; Z91.19 Patient's noncompliance with other medical treatment and regimen; Z56.0 Unemployment, unspecified; R29.714 NIHSS score 14; R40.2363 Coma scale, best motor response, obeys commands, at hospital admission; R40.2143 Coma scale, eyes open, spontaneous, at hospital admission; R40.2253 Coma scale, best verbal response, oriented, at hospital admission; Z99.89 Dependence on other enabling machines and devices; Z88.0 Allergy status to penicillin; Z88.2 Allergy status to sulfonamides; R31.9 Hematuria, unspecified; K64.9 Unspecified hemorrhoids
CPT/HCPCS: 36415; 36600; 70450; 70496; 70498; 71045; 76770; 78315; 80048; 80053; 80061; 81001; 82009; 82140; 82550; 82607; 82728; 82746; 82747; 82805; 83540; 83550; 83605; 83735; 83930; 84295; 84439; 84443; 85025; 85027; 85610; 85730; 86140; 87040; 87070; 87075; 87205; 87798; 93005; 93306; 93880; 94640; 94660; 95816; 96361; 96365; 96375; 99285

== ENCOUNTER 2020-02-13 21:39 | Inpatient (IN) | payer MEDICAID ==
[2020-02-13] MEDS ORDERED: ATROPINE OPHTH SOLN 1% 5ML BTL SUBLINGUAL PRN (21:41)
[2020-02-13] MEDS ORDERED: ACETAMINOPHEN SUPPOSITORY 650 MG SUPP RECTAL PRN (21:41)
[2020-02-13] MEDS ORDERED: ONDANSETRON 4 MG/2 ML VIAL IVP PRN (21:41)
[2020-02-13] MEDS ORDERED: GLYCOPYRROLATE 0.2 MG/ML 2 ML VIAL IVP PRN (21:41)
[2020-02-13] MEDS ORDERED: SCOPOLAMINE 1.5MG/72HR PATCH TRANSDERM SCH (21:45)
[2020-02-13] MEDS ORDERED: IPRATROPIUM-ALBUTEROL 3 ML NEB INHALATION PRN (23:18)
[2020-02-14] MEDS ORDERED: IPRATROPIUM-ALBUTEROL 3 ML NEB INHALATION SCH
[2020-02-14] MEDS: MORPHINE SULFATE 2 MG/ML SYRINGE IV PRN ×4 (00:09→18:33)
[2020-02-14] MEDS: LORazepam 2 MG/ML INJ IV PRN ×2 (01:58→05:56)
--- NOTE | 2020-02-14 19:03 | P.HPIM ---
History of Present Illness Diagnoses: Acute hypoxic respiratory failure Acute encephalopathy Global aphasia with left upper extremity weakness - possible acute stroke Anion gap metabolic acidosis Acute kidney injury Hypothyroidism Systolic CHF Severe Pulmonary HTN Acute bilateral lower extremity cellulitis failed outpatient therapy Left heel diabetic ulcer, status post debridement Osteomyelitis of the left calcaneal bone Diann albicans from the wound culture Blood in the stool Hematuria Microcytic anemia Type 2 diabetes mellitus poorly controlled with hyperglycemia Peripheral neuropathy CKD stage III Hyponatremia Hypoalbuminemia with mild protein calorie malnutrition Obstructive sleep apnea Possible obesity hypoventilation syndrome History of MRSA of the right shoulder Degenerative joint disease Morbid obesity with BMI 47.1 Hospital course: This 49 years old male with multiple medical problems who was admitted on for bilateral leg cellulitis and sepsis, patient history of wound and debridement of the heel and possible osteomyelitis. Bone scan. Patient hospital course was complicated by "stroke which was called on , patient had global aphasia with negative CT of the brain and CT of the brain which were nondiagnostic. No MRI couldn't be done because of his body habitus. Patient also found to have severe tricuspid regurgitation and severe pulmonary hypertension. Patient developed acute hypoxic respiratory failure and he was in the ICU treated with BiPAP. Increase intercranial pressure was suspected but the guardian did not approve lumbar puncture to be done, eventually patient was made DO NOT RESUSCITATE and guardian and family opted for no procedure, eventually patient was already accepted by [facility] hospice team yesterday today is he is under hospice care/comfort care. He was weaned off BiPAP per family request and hysterectomy in oxygen 3 L/m via nasal cannula. Patient looks comfortable and not in distress Review of system: N/a Physical exam -GENERAL: The patient is noncommunicative. Awake but looks confused. Obese HEENT: Pupils are round and equally reacting to light. EOMI. No scleral icterus. No conjunctival pallor. Normocephalic, atraumatic. No pharyngeal erythema. No thyromegaly. CARDIOVASCULAR: S1 and S2 present. No murmurs, rubs, or gallops. PULMONARY: Chest is clear to auscultation, no wheezing or crackles. ABDOMEN: Soft, nontender, nondistended, normoactive bowel sounds. No palpable organomegaly. EXTREMITIES: No cyanosis, clubbing, or pedal edema. NEUROLOGICAL: Gross neurological examination did not reveal any focal deficits. Past Medical History Past Medical History: Diabetes Mellitus, Sleep Apnea/CPAP/BIPAP Additional Past Medical History / Comment(s): CHF, neuropathy History of Any Multi-Drug Resistant Organisms: MRSA Date of last positivie culture/infection: 2004 MDRO Source:: Rt shoulder Past Surgical History: Orthopedic Surgery Additional Past Surgical History / Comment(s): carpal tunnel in right wrist, MRSA infection drain in right shoulder Past Anesthesia/Blood Transfusion Reactions: No Reported Reaction Past Psychological History: No Psychological Hx Reported Smoking Status: Never smoker Past Alcohol Use History: None Reported, Unable to Obtain Past Drug Use History: None Reported - Past Family History Father Family Medical History: Cancer Sister(s) Family Medical History: Cancer Additional Family Medical History / Comment(s): cervical cancer Brother(s) Family Medical History: Liver Disease Additional Family Medical History / Comment(s): from liver cirrhosis. another brother has throat cancer Medications and Allergies Home Medications Medication Instructions Recorded Confirmed Type Aspirin [[place] Aspirin EC] 81 mg PO DAILY 01/24/20 02/13/20 History Multivitamins, Thera [Multivitamin 1 tab PO DAILY 01/24/20 02/13/20 History (formulary)] Famotidine [Pepcid] 20 mg PO Q12HR 30 Days #60 tab 01/30/20 02/13/20 Rx metroNIDAZOLE [Flagyl] 500 mg PO Q8HR #90 tab 01/30/20 02/13/20 Rx Acetaminophen [Tylenol] 650 mg PO Q8H PRN 02/02/20 02/13/20 History Carvedilol [Coreg] 12.5 mg PO BID 02/13/20 02/13/20 History Cefepime [Maxipime] 2 gm IVPB Q12HR 02/13/20 02/13/20 History Furosemide [Lasix] 20 mg PO DAILY 02/13/20 02/13/20 History Insulin Regular, Human [humulin R 110 unit SQ BID 02/13/20 02/13/20 History U-500 Kwikpen] Levothyroxine Sodium [Synthroid] 150 mcg PO DAILY 02/13/20 02/13/20 History Lisinopril [Zestril] 10 mg PO DAILY 02/13/20 02/13/20 History Spironolactone [Aldactone] 25 mg PO DAILY 02/13/20 02/13/20 History Allergies Allergy/AdvReac Type Severity Reaction Status Date / Time Penicillins Allergy Swelling Verified 02/02/20 12:35 Sulfa (Sulfonamide Allergy Unknown Verified 02/02/20 12:35 Antibiotics) Physical Exam Vitals: Vital Signs Pulse Resp BP Pulse Ox 02/14/20 07:00 68 14 103/66 98 02/13/20 23:00 70 20 100/70 Intake and Output 02/13/20 02/14/20 02/14/20 22:59 06:59 14:59 Intake Total 80 Output Total 200 Balance -120 Intake: IV 80 0.9 Normal Saline 80 Output: Urine 200 Other: Voiding Method Indwelling Catheter Indwelling Catheter Weight 141.6 kg
[2020-02-15 08:30] VITALS: BMI 50.3
--- NOTE | 2020-02-15 10:38 | P.PN ---
Subjective This 49 years old male with multiple medical problems who was admitted on for bilateral leg cellulitis and sepsis, patient history of wound and debridement of the heel and possible osteomyelitis. Bone scan. Patient hospital course was complicated by "stroke which was called on , patient had global aphasia with negative CT of the brain and CT of the brain which were nondiagnostic. No MRI couldn't be done because of his body habitus. Patient also found to have severe tricuspid regurgitation and severe pulmonary hypertension. Patient developed acute hypoxic respiratory failure and he was in the ICU treated with BiPAP. Increase intercranial pressure was suspected but the guardian did not approve lumbar puncture to be done, eventually patient was made DO NOT RESUSCITATE and guardian and family opted for no procedure, eventually patient was already accepted by [facility] hospice team yesterday today is he is under hospice care/comfort care. He was weaned off BiPAP per family request and hysterectomy in oxygen 3 L/m via nasal cannula. Patient looks comfortable and not in distress 02/15/2020 Patient today is more awake and alert, is telling me he isn't [facility], when asking about a year he said 3030, he knew the name of the president Naveed. Patient has some slurred speech but is able to talk today and he has good attention is been and showed interest of the surrounding for example he has me upon my name. Patient was limited and aware why he was in the hospital and he was updated. He is still kind of short of breath and he saturates 90s and 2-4 L via nasal cannula. Objective - Vital Signs Vital signs: Vital Signs Temp 97.7 F 02/15/20 05:26 Pulse 80 02/15/20 05:26 Resp 18 02/15/20 05:26 BP 123/85 02/15/20 05:26 Pulse Ox 97 02/15/20 05:26 Intake & Output 02/14/20 02/15/20 02/15/20 18:59 06:59 18:59 Intake Total 30 Output Total 600 Balance -600 30 Weight 141.6 kg Intake: Oral 30 Output: Urine 600 Other: Voiding Method Indwelling Catheter Indwelling Catheter # Bowel Movements 2 0 - Exam -GENERAL: The patient i awake and alert and oriented 2. Somewhat dyspneic. Obese HEENT: Pupils are round and equally reacting to light. EOMI. No scleral icterus. No conjunctival pallor. Normocephalic, atraumatic. No pharyngeal erythema. No thyromegaly. CARDIOVASCULAR: S1 and S2 present. No murmurs, rubs, or gallops. -PULMONARY: Chest is clear to auscultation, no wheezing or crackles. Tachypnea ABDOMEN: Soft, nontender, nondistended, normoactive bowel sounds. No palpable organomegaly. -EXTREMITIES: No cyanosis, clubbing, or pedal edema. Bilateral heel wounds and especially with black eschar on the left heel, dressing is in place -NEUROLOGICAL Patient is awake and oriented 2, slurred speech. Weakness of the left upper extremity Assessment and Plan Assessment: Acute hypoxic respiratory failure, mostly secondary to sepsis from his bilateral leg cellulitis and osteomyelitis Acute encephalopathy, improving Global aphasia with left upper extremity weakness - possible acute stroke Bilateral lower extremity cellulitis and possible osteomyelitis of the left calcaneal bone Anion gap metabolic acidosis Acute kidney injury Hypothyroidism Systolic CHF Severe Pulmonary HTN Left heel diabetic ulcer, status post debridement Diann albicans from the wound culture Blood in the stool Hematuria Microcytic anemia Type 2 diabetes mellitus poorly controlled with hyperglycemia Peripheral neuropathy CKD stage III Hyponatremia Hypoalbuminemia with mild protein calorie malnutrition Obstructive sleep apnea Possible obesity hypoventilation syndrome History of MRSA of the right shoulder Degenerative joint disease Morbid obesity with BMI 47.1 Plan: This pleasant 49 years old male who is currently under hospice/Comfort Care per his guardian and family. He was comfortable however his been more awake, we will touch base with the family and guardian if they still wanted patient to be comfort care and hospice or they want to resume treatment given his improvement in his mental status. In the meantime continue with pain management Discussed with staff However prognosis is generally remains poor
[2020-02-15 11:29] LABS: Anisocytosis Slight; Basophils % (A) 0 %; Eosinophils # (A) 0.1 k/uL (0-0.7); Eosinophils % (A) 2 %; Hypochromasia Marked; Lymphocytes % (A) 18 %; MCH 30.5 pg (25.0-35.0); MCHC 28.5 g/dL (31.0-37.0); Macrocytosis Marked; Mean Platelet Volume 10.2; Monocytes # (A) 0.3 k/uL (0-1.0); Monocytes % (A) 5 %; Neutrophils # (A) 3.9 k/uL (1.3-7.7); Neutrophils % (A) 73 %; Platelet Count 150 k/uL (150-450); Poikilocytosis Slight; RBC 2.62 m/uL (4.30-5.90); WBC 5.4 k/uL (3.8-10.6)
[2020-02-15 11:38] LABS: Albumin 2.5 g/dL (3.5-5.0); Calcium 6.8 mg/dL (8.4-10.2); MCV 107.1 fL (80.0-100.0); Potassium 4.5 mmol/L (3.5-5.1); Total Bilirubin 0.5 mg/dL (0.2-1.3); Total Protein 6.2 g/dL (6.3-8.2)
[2020-02-15] MEDS: MORPHINE SULFATE (100 MG/2 ML) 100 MG in SODIUM CHLORIDE 0.9% 100 ML IV SCH (20:34)
--- NOTE | 2020-02-16 09:49 | CDI ---
Documentation Clarification Form Date: 02/16/2020 09:40:37 AM From: Arabella Peterson RN, CCDS Admit Date: 02/13/2020 10:08:00 PM Patient Name: Brown Lopez Visit Number: [id number] ATTENTION: The Clinical Documentation Specialists (CDI) and [facility] Coding Staff appreciate your assistance in clarifying documentation. Please respond to the clarification below the line at the bottom and electronically sign. The CDI & [facility] Coding staff will review the response and follow-up if needed. Please note: Queries are made part of the Legal Health Record. If you have any questions, please contact the author of this message via ITS. Dr. Purcell E Sheet Acute Encephalopathy is documented in the H&P and Progress note and requires further specificity. History/Risk Factors: Acute hypoxic respiratory failure, global aphasia with left upper extremity weakness, possible CVA, JAZMIN on CKD stage 3, Hypothyroidism, bilateral lower extremity cellulitis, left heel DM ulcer, Osteomyelitis of left calcaneal bone, microcytic anemia, DM2 with hyperglycemia, hyponatremia, mild PCM Clinical Indicators: 02/14 Labs: Hgb 8, BUN 94, Cr 5.37, Alk Phos 359 EEG: &CT/MRI Brain: re not done as patient was Hospice Treatment: Consults: none ordered Tx: iv Ativan 1 mg Q 2 hrs PRN anxiety, Morphine 2 mg IVP Q 15 min breakthrough pain, Scopolamine Patch In your professional opinion, can you please clarify the specific type of Encephalopathy, if known? Metabolic Encephalopathy Septic Encephalopathy Toxic Encephalopathy Other, please specify Unable to determine (Last Revision: September 2017) multifactorial , septic and Metabolic Encephalopathy MTDD
--- NOTE | 2020-02-16 09:56 | CDI ---
Documentation Clarification Form Date: 02/16/2020 09:49:49 AM From: Arabella Peterson RN, CCDS Admit Date: 02/13/2020 10:08:00 PM Patient Name: Brown Lopez Visit Number: [id number] ATTENTION: The Clinical Documentation Specialists (CDI) and [facility] Coding Staff appreciate your assistance in clarifying documentation. Please respond to the clarification below the line at the bottom and electronically sign. The CDI & [facility] Coding staff will review the response and follow-up if needed. Please note: Queries are made part of the Legal Health Record. If you have any questions, please contact the author of this message via ITS. Dr. Purcell E Sheet Systolic CHF is documented in the H&P and Progress Notes and requires acuity. History/Risk Factors: Severe pulmonary HTN, Systolic CHF, DM, Anemia, JAZMIN on CKD stage 3, [facility], [place], Acute hypoxic respiratory failure Clinical Indicators: 02/14 VS/Pulse OX: Temp 98.5, HR 71, RR 16, B/P 145/88, Spo2 99% 2L NC BNP: not checked 02/10 1004 Echocardiogram Results: EF 45-50% Chest X Ray: not done on this admission Treatment: No cardiac meds ordered In your professional opinion, can you please clarify the acuity and type of CHF if known? Systolic Heart Failure: Acute Chronic Acute on Chronic Unable to Determine Other, please specify (Last Revision: September 2017) acute systolic CHF MTDD
[2020-02-16 13:44] VITALS: BP 168/84; PULSE 74; RESP 18; TEMP 98.3
--- NOTE | 2020-02-16 20:53 | P.DS ---
Providers Date of admission: 02/13/20 22:08 Attending physician: Juan Diego De La Torre Primary care physician: Juancho De La Torre Hospital Course: Diagnoses Global aphasia suspected due to stroke, significantly improved Altered mental status, also significantly improved patient is awake and oriented End of life care, hospice/Comfort Care. Patient and family opted to resume treatment Acute hypoxic respiratory failure, mostly secondary to sepsis from his bilateral leg cellulitis and osteomyelitis Acute encephalopathy, improving Global aphasia with left upper extremity weakness - possible acute stroke Bilateral lower extremity cellulitis and possible osteomyelitis of the left calcaneal bone Anion gap metabolic acidosis Acute kidney injury Hypothyroidism Systolic CHF Severe Pulmonary HTN Left heel diabetic ulcer, status post debridement Diann albicans from the wound culture Blood in the stool Hematuria Microcytic anemia Type 2 diabetes mellitus poorly controlled with hyperglycemia Peripheral neuropathy CKD stage III Hyponatremia Hypoalbuminemia with mild protein calorie malnutrition Obstructive sleep apnea Possible obesity hypoventilation syndrome History of MRSA of the right shoulder Degenerative joint disease Morbid obesity with BMI 47.1 Hospital course: This 49 years old male with multiple medical problems who was admitted on for bilateral leg cellulitis and sepsis, patient history of wound and debridement of the heel and possible osteomyelitis. Bone scan. Patient hospital course was complicated by "stroke which was called on , patient had global aphasia with negative CT of the brain and CT of the brain which were nondiagnostic. No MRI couldn't be done because of his body habitus. Patient also found to have severe tricuspid regurgitation and severe pulmonary hypertension. Patient developed acute hypoxic respiratory failure and he was in the ICU treated with BiPAP. Increase intercranial pressure was suspected but the guardian did not approve lumbar puncture to be done, eventually patient was made DO NOT RESUSCITATE and guardian and family opted for no procedure, eventually patient was already accepted by [facility] hospice team , however the last 2 days patient started waking up and he was alert awake and oriented to time place and person, he was short of breath and complaining from pain in his left leg, after discussion with the family and the patient they wanted to report hospice care and they want patient to be treated therefore patient will be discharged from hospice care and will be admitted under medicine Physical exam -GENERAL: The patient i awake and alert and oriented [address] and person[address] Somewhat dyspneic. Obese HEENT: Pupils are round and equally reacting to light. EOMI. No scleral icterus. No conjunctival pallor. Normocephalic, atraumatic. No pharyngeal erythema. No thyromegaly. CARDIOVASCULAR: S1 and S2 present. No murmurs, rubs, or gallops. -PULMONARY: Chest is clear to auscultation, no wheezing or crackles. Tachypnea ABDOMEN: Soft, nontender, nondistended, normoactive bowel sounds. No palpable organomegaly. -EXTREMITIES: No cyanosis, clubbing, or pedal edema. Bilateral heel wounds and especially with black eschar on the left heel, dressing is in place -NEUROLOGICAL Patient is awake and oriented 3, slurred speech. Weakness of the left upper extremity Time spent more than 35 minutes Plan - Discharge Summary New Discharge Prescriptions: No Action RX: Multivitamins, Thera [Multivitamin (formulary)] 1 tab PO DAILY RX: Aspirin [[place] Aspirin EC] 81 mg PO DAILY RX: Famotidine [Pepcid] 20 mg PO Q12HR 30 Days #60 tab metroNIDAZOLE [Flagyl] 500 mg PO Q8HR #90 tab Acetaminophen [Tylenol] 650 mg PO Q8H PRN PRN Reason: Pain Spironolactone [Aldactone] 25 mg PO DAILY Lisinopril [Zestril] 10 mg PO DAILY Furosemide [Lasix] 20 mg PO DAILY Levothyroxine Sodium [Synthroid] 150 mcg PO DAILY Carvedilol [Coreg] 12.5 mg PO BID Insulin Regular, Human [humulin R U-500 Kwikpen] 110 unit SQ BID Cefepime [Maxipime] 2 gm IVPB Q12HR Discharge Medication List RX: Aspirin [[place] Aspirin EC] 81 mg PO DAILY 01/24/20 [History] RX: Multivitamins, Thera [Multivitamin (formulary)] 1 tab PO DAILY 01/24/20 [History] RX: Famotidine [Pepcid] 20 mg PO Q12HR 30 Days #60 tab 01/30/20 [Rx] metroNIDAZOLE [Flagyl] 500 mg PO Q8HR #90 tab 01/30/20 [Rx] Acetaminophen [Tylenol] 650 mg PO Q8H PRN 02/02/20 [History] Carvedilol [Coreg] 12.5 mg PO BID 02/13/20 [History] Cefepime [Maxipime] 2 gm IVPB Q12HR 02/13/20 [History] Furosemide [Lasix] 20 mg PO DAILY 02/13/20 [History] Insulin Regular, Human [humulin R U-500 Kwikpen] 110 unit SQ BID 02/13/20 [History] Levothyroxine Sodium [Synthroid] 150 mcg PO DAILY 02/13/20 [History] Lisinopril [Zestril] 10 mg PO DAILY 02/13/20 [History] Spironolactone [Aldactone] 25 mg PO DAILY 02/13/20 [History] Discharge Disposition: OTHER INSTITUTION NOT DEFINED
--- NOTE | 2020-02-17 09:59 | P.PN ---
Subjective Progress Note Date: 02/17/20 Principal diagnosis: Shortness of breath This is a 49-year-old white male patient that we saw in consultation on 02/11/2020 last week for hypoxic respiratory failure related to sepsis, secondary to left calcaneal osteomyelitis, acute kidney injury, and patient was having neurological abnormalities that included global aphasia, and left upper extremity weakness, with a concern of meningoencephalitis, however LP was not performed because the patient's sister declined any aggressive medical treatment. CT of the brain did not show evidence of aneurysm or acute ischemia. Patient's was treated medically, his breathing was supported with BiPAP, he was receiving broad-spectrum antibiotics for osteomyelitis of the left calcaneus status post debridement. Patient codes status was DO NOT RESUSCITATE, per his next of kin, who is his sister, clinically patient was not improving, and she decided to place the patient in hospice comfort and initiate comfort care protocol. He was discharged into hospice care on 02/16/2020. Today we're asked to see the patient again on 02/17/2020. In the last 24 hours his mentation has significantly improved, is awake and alert, he remembered Dr. Brown from previously seen him in the pulmonary clinic on an outpatient basis where Dr. Brown treats him for history of COPD obstructive sleep apnea. Appears to be in no acute distress, resting comfortably in bed, we seen the patient on the general medical oncology floor. He is currently on 2 L of oxygen the pulse ox of 99%, hemodynamically stable, breathing is comfortable, nonlabored, he is afebrile. Today's labs have been reviewed, his white count is 5.0, hemoglobin is 8.0, sodium is 139, potassium is 4.7, chloride is 112, CO2 is 21, BUN of 97, creatinine is 5.24. His right leg and culture was positive for Diann, and left leg wound culture was Diann albicans. His blood culture from previous admission was negative. His antibiotics have been restarted with cefepime and Flagyl. Patient is edematous, and he has been started on IV Lasix at 40 mg every 12 hours. Appears stable right now, he is tolerating oral diet. Objective - Vital Signs Vital signs: Vital Signs Temp 98.3 F 02/16/20 13:43 Pulse 74 02/16/20 13:43 Resp 18 08/17/20 13:43 BP 168/84 02/16/20 13:43 Pulse Ox 99 02/16/20 13:43 Intake & Output 02/16/20 02/17/20 02/17/20 18:59 06:59 18:59 Other: Voiding Method Indwelling Catheter - Exam GENERAL EXAM: awake and alert, oriented 3, 49-year-old obese white male, on 2 L of oxygen pulse ox of 99%, resting comfortable in bed, answering questions improperly, HEAD: Normocephalic/atraumatic. EYES: Normal reaction of pupils, left pupil measuring 5 mm, mildly reactive to light, right pupil is 2 mm in diameter reactive. Conjunctiva pink, sclera white. NOSE: Clear with pink turbinates. THROAT: No erythema or exudates. NECK: No masses, no JVD, no thyroid enlargement, no adenopathy. CHEST: No chest wall deformity. Symmetrical expansion. LUNGS: Equal air entry with no crackles, wheeze, rhonchi or dullness. CVS: Regular rate and rhythm, normal S1 and S2, no gallops, no murmurs, no rubs ABDOMEN: Soft, nontender. No hepatosplenomegaly, normal bowel sounds, no guarding or rigidity. EXTREMITIES: No clubbing, significant edema involving upper and lower extremities, no cyanosis, 2+ pulses and upper and lower extremities. bilateral lower extremities covered with dressings MUSCULOSKELETAL: Muscle strength and tone normal. SPINE: No scoliosis or deformity SKIN: No rashes CENTRAL NERVOUS SYSTEM: Awake and alert, oriented 3 obese, 49-year-old white male, 2 L of oxygen, no facial asymmetry, however patient is not verbally responding to questions or following commands PSYCHIATRIC: stuporous - Labs CBC & Chem 7: 02/15/20 11:07 02/15/20 11:07 Assessment and Plan Plan: Assessment: #1. Acute hypoxic respiratory failure, related to sepsis initially, actually improved, his chest x-ray shows congestive heart failure with pulmonary edema and pleural fluid. #2. Global aphasia and left upper extremity weakness, improved, and patient is verbally responding, and moving both upper extremities #3. Acute encephalopathy, due to sepsis, acute kidney injury, significantly improved #3. Acute non-anion gap metabolic acidosis, related to acute kidney injury #4. 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 Hypothyroidism, started on levothyroxin #6. Severe pulmonary hypertension with severe tricuspid regurgitation, likely secondary to underlying obstructive sleep apnea and chronic hypoxic respiratory failure #7. recent hospitalization for bilateral leg cellulitis and heel ulcers, status post surgical debridement, patient had a PICC line placed and discharged home on IV antibiotics #8. Diabetes mellitus type 2 with diabeticneuropathy #9. Chronic congestive heart failure, with diastolic dysfunction #10. Previous history of MRSA infection #11. Chronic kidney disease stage III, previously on hemodialysis for short period of time #12. History of sleep apnea, unclear whether or not patient is compliant with CPAP #13. History o degenerative joint disease #14. Medical debility, gait dysfunction Plan: Chest x-ray has been reviewed showing changes consistent with pulmonary edema, and small pleural effusions, continue with IV Lasix, antibiotics have been restarted, vital signs are stable, patient is clinically looking much better, he is awake and alert, responding appropriately, denies any acute distress, hemodynamically he is stable, his CODE STATUS has been reversed and patient's hospice status was discontinued. Will continue with current medical treatment, will follow I performed a history & physical examination of the patient and discussed their management with my nurse practitioner, Mere Byrnes. I reviewed the nurse practitioner's note and agree with the documented findings and plan of care. Lung sounds are positive for diminished breath sounds. The findings and the impression was discussed with the patient. I attest to the documentation by the nurse practitioner. Time with Patient: Less than 30
== END 2020-02-16 15:34 | disposition short-term general hospital (02) | DRG 64 ==
LOC: 2SICU 22:08 → 5NMEDONC 02-14 12:32
PROVIDERS: ADMIT Hospitalist; ATTEND Hospitalist
PROC: 5A09357 Assistance with Respiratory Ventilation, Less than 24 Consecutive Hours, Continuous Positive Airway Pressure (ICD-10-PCS; principal; 2020-02-14)
DX: I63.9 Cerebral infarction, unspecified (principal); G93.41 Metabolic encephalopathy; I50.21 Acute systolic (congestive) heart failure; J96.21 Acute and chronic respiratory failure with hypoxia; A41.9 Sepsis, unspecified organism; R65.20 Severe sepsis without septic shock; E44.1 Mild protein-calorie malnutrition; N17.9 Acute kidney failure, unspecified; L03.115 Cellulitis of right lower limb; L03.116 Cellulitis of left lower limb; L97.429 Non-pressure chronic ulcer of left heel and midfoot with unspecified severity; K92.1 Melena; E87.1 Hypo-osmolality and hyponatremia; Z68.42 Body mass index [BMI] 45.0-49.9, adult; E87.2 Acidosis; E66.2 Morbid (severe) obesity with alveolar hypoventilation; M86.9 Osteomyelitis, unspecified; R47.01 Aphasia; E03.9 Hypothyroidism, unspecified; I27.20 Pulmonary hypertension, unspecified; E11.621 Type 2 diabetes mellitus with foot ulcer; Z66 Do not resuscitate; E11.22 Type 2 diabetes mellitus with diabetic chronic kidney disease; Z51.5 Encounter for palliative care; E11.69 Type 2 diabetes mellitus with other specified complication; D50.9 Iron deficiency anemia, unspecified; R31.9 Hematuria, unspecified; E11.65 Type 2 diabetes mellitus with hyperglycemia; Z86.14 Personal history of Methicillin resistant Staphylococcus aureus infection; M19.90 Unspecified osteoarthritis, unspecified site; Z79.82 Long term (current) use of aspirin; Z79.899 Other long term (current) drug therapy; Z79.4 Long term (current) use of insulin; Z79.890 Hormone replacement therapy; Z71.3 Dietary counseling and surveillance; I07.1 Rheumatic tricuspid insufficiency; J44.9 Chronic obstructive pulmonary disease, unspecified; N18.3 Chronic kidney disease, stage 3 (moderate); Z80.8 Family history of malignant neoplasm of other organs or systems
CPT/HCPCS: 80053; 85025; 94660

== ENCOUNTER 2020-02-16 15:38 | Inpatient (IN) | payer MEDICAID, OTHER ==
--- NOTE | 2020-02-16 19:29 | XR ---
EXAMINATION TYPE: XR chest 1V portable DATE OF EXAM: 02/16/2020 COMPARISON: 02/13/2020 HISTORY: Short of breath TECHNIQUE: Single view FINDINGS: Heart is enlarged. There is only vascular congestion. There is some blunting of the costoph renic angles. IMPRESSION: Congestive heart failure with pulmonary edema and pleural fluid. Pleural fluid is probabl y improved compared to recent exam.
[2020-02-16] MEDS: carvediloL 12.5 MG TAB PO SCH (20:15)
[2020-02-16] MEDS: FAMOTIDINE 20 MG TAB PO SCH (20:15)
[2020-02-16] MEDS: HEPARIN SODIUM,PORCINE 5,000 UNIT/ML 1 ML VIAL SQ SCH (20:15)
[2020-02-16] MEDS: CEFEPIME 1 GM in SODIUM CHLORIDE 0.9% 50 ML IVPB SCH ×2 (20:15→21:01)
[2020-02-16 20:21] LABS: Anisocytosis Slight; Basophils % (A) 0 %; Eosinophils # (A) 0.3 k/uL (0-0.7); Eosinophils % (A) 5 %; HCT 28.6 % (39.0-53.0); HGB 8.3 gm/dL (13.0-17.5); Hypochromasia Marked; Lymphocytes % (A) 16 %; MCH 30.9 pg (25.0-35.0); MCHC 28.9 g/dL (31.0-37.0); Macrocytosis Marked; Mean Platelet Volume 11.2; Monocytes # (A) 0.4 k/uL (0-1.0); Monocytes % (A) 6 %; Neutrophils # (A) 4.1 k/uL (1.3-7.7); Neutrophils % (A) 70 %; Platelet Count 143 k/uL (150-450); Poikilocytosis Slight; RBC 2.68 m/uL (4.30-5.90); RDW 18.6 % (11.5-15.5); WBC 5.9 k/uL (3.8-10.6)
[2020-02-16 20:25] LABS: MCV 106.7 fL (80.0-100.0)
[2020-02-16 20:32] LABS: Calcium 6.7 mg/dL (8.4-10.2); Potassium 4.9 mmol/L (3.5-5.1)
[2020-02-16] MEDS ORDERED: CEFEPIME 2 GM in SODIUM CHLORIDE 0.9% 100 ML IVPB SCH (21:00)
[2020-02-16] MEDS ORDERED: FUROSEMIDE 10 MG/ML 4 ML VIAL IV STA (22:32)
[2020-02-17] MEDS: metroNIDAZOLE 500 MG TAB PO SCH ×4 (00:13→23:09)
[2020-02-17] MEDS: LEVOTHYROXINE 75 MCG TAB PO SCH (05:34)
[2020-02-17] MEDS: FAMOTIDINE 20 MG TAB PO SCH (08:07)
[2020-02-17] MEDS: CEFEPIME 1 GM in SODIUM CHLORIDE 0.9% 50 ML IVPB SCH ×2 (08:07→20:19)
[2020-02-17] MEDS: carvediloL 12.5 MG TAB PO SCH ×2 (08:07→17:38)
[2020-02-17] MEDS: MULTIVITAMINS, THERA 1 EACH TAB PO SCH (08:07)
[2020-02-17] MEDS: ASPIRIN 81 MG PO SCH (08:07)
[2020-02-17] MEDS: HEPARIN SODIUM,PORCINE 5,000 UNIT/ML 1 ML VIAL SQ SCH ×2 (08:07→20:20)
[2020-02-17 08:27] LABS: Anisocytosis Slight; Basophils % (A) 1 %; Eosinophils # (A) 0.3 k/uL (0-0.7); Eosinophils % (A) 6 %; HCT 27.8 % (39.0-53.0); Hypochromasia Marked; Lymphocytes % (A) 20 %; MCH 30.9 pg (25.0-35.0); MCHC 28.9 g/dL (31.0-37.0); Macrocytosis Marked; Mean Platelet Volume 9.9; Monocytes # (A) 0.4 k/uL (0-1.0); Monocytes % (A) 8 %; Neutrophils # (A) 3.1 k/uL (1.3-7.7); Neutrophils % (A) 63 %; Platelet Count 124 k/uL (150-450); RDW 18.4 % (11.5-15.5)
[2020-02-17 08:31] LABS: Magnesium 1.7 mg/dL (1.6-2.3); Potassium 4.7 mmol/L (3.5-5.1)
[2020-02-17 08:51] LABS: Calcium 6.4 mg/dL (8.4-10.2)
[2020-02-17] MEDS: FUROSEMIDE 10 MG/ML 4 ML VIAL IV SCH ×2 (10:17→20:19)
[2020-02-17 17:07] LABS: Glucose,Whole Blood 278 mg/dL (75-99)
[2020-02-17] MEDS: INSULIN ASPART (NovoLOG) 100 UNIT/ML VIAL SQ SCH ×2 (17:38→20:20)
[2020-02-17 18:37] LABS: Hepatitis B Surface AB- Quant 3.5 mIU/mL; Hepatitis B Surface Antibody Non-Reactive (Non-Reactive); Hepatitis B Surface Antigen Non-Reactive (Non-Reactive)
[2020-02-17 20:14] LABS: Glucose,Whole Blood 242 mg/dL (75-99)
--- NOTE | 2020-02-17 22:41 | P.CONS ---
History of Present Illness - Reason for Consult Consult date: 02/17/20 Left heel osteomyelitis patient known to you Requesting physician: Juan Diego De La Torre - Chief Complaint Left he nonhealing wound x weeks - History of Present Illness Patient is a 49-year-old male who was recently admitted to this facility with significant worsening of his left heel wound with maggots infestation patient did have extensive surgical debridement by Dr. Hernández with a wound extending down to the bone, patient local wound culture positive for Morganella and strep and anaerobes patient did get a PICC line subsequently discharged home on cefepime 2 g every 12 along with oral Flagyl, patient subsequently readmitted to the hospital very quickly with significant worsening of bilateral lower extremity cellulitis, patient has been treated locally with compression dressing and IV antibiotic therapy, subsequently did have worsening of his kidney function and developed metabolic encephalopathy and was transferred out of the ICU patient was treated with the BiPAP and subsequently was made hospice, for the last few days patient was noticed to have significant improvement in his mentation is more awake and alert and is breathing comfortably on room air patient and mother review of the hospice last evening and wanted patient to be treated, patient was restarted on cefepime and Flagyl infectious disease was consulted for further management of antibiotic therapy local wound care. At the time of my evaluation the patient is afebrile he patient breathing comfortably denies having any chest pain or shortness of breath and minimal cough did have an episode of vomiting. No abdominal pain or diarrhea and denies any worsening pain to the left heel Review of Systems Positive point has been mentioned in the HPI rest of the systems are negative Past Medical History Past Medical History: Heart Failure, CVA/TIA, Diabetes Mellitus, Dialysis, Renal Disease, Sleep Apnea/CPAP/BIPAP Additional Past Medical History / Comment(s): Patient had one month of hemodial ysis in the past, pt. states that in August of 2019 he had a stroke and was admitted to [facility] during that time, Obesity, sepsis History of Any Multi-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:: 2004 MDRO Source:: Rt shoulder Past Surgical History: Orthopedic Surgery Additional Past Surgical History / Comment(s): carpal tunnel in right wrist, MRSA infection with drain in right shoulder 2004, Debridement of left foot ulcer 01/30/2020 Past Anesthesia/Blood Transfusion Reactions: No Reported Reaction Past Psychological History: No Psychological Hx Reported Smoking Status: Never smoker Past Alcohol Use History: None Reported Past Drug Use History: None Reported - Past Family History Father Family Medical History: Cancer Sister(s) Family Medical History: Cancer Additional Family Medical History / Comment(s): cervical cancer Brother(s) Family Medical History: Liver Disease Additional Family Medical History / Comment(s): from liver cirrhosis. another brother has throat cancer Medications and Allergies Home Medications Medication Instructions Recorded Confirmed Type Aspirin [Gerald Aspirin EC] 81 mg PO DAILY 01/24/20 02/16/20 History Multivitamins, Thera [Multivitamin 1 tab PO DAILY 01/24/20 02/16/20 History (formulary)] Famotidine [Pepcid] 20 mg PO Q12HR 30 Days #60 tab 01/30/20 02/16/20 Rx metroNIDAZOLE [Flagyl] 500 mg PO Q8HR #90 tab 01/30/20 02/16/20 Rx Acetaminophen [Tylenol] 650 mg PO Q8H PRN 02/02/20 02/16/20 History Carvedilol [Coreg] 12.5 mg PO BID 02/13/20 02/16/20 History Cefepime [Maxipime] 2 gm IVPB Q12HR 02/13/20 02/16/20 History Furosemide [Lasix] 20 mg PO DAILY 02/13/20 02/16/20 History Insulin Regular, Human [humulin R 110 unit SQ BID 02/13/20 02/16/20 History U-500 Kwikpen] Levothyroxine Sodium [Synthroid] 150 mcg PO DAILY 02/13/20 02/16/20 History Lisinopril [Zestril] 10 mg PO DAILY 02/13/20 02/16/20 History Spironolactone [Aldactone] 25 mg PO DAILY 02/13/20 02/16/20 History Allergies Allergy/AdvReac Type Severity Reaction Status Date / Time Penicillins Allergy Swelling Verified 02/02/20 12:35 Sulfa (Sulfonamide Allergy Unknown Verified 02/02/20 12:35 Antibiotics) Physical Exam Vitals: Vital Signs Temp Pulse Resp BP Pulse Ox 02/17/20 20:41 98.4 F 58 L 16 123/77 100 02/17/20 13:00 98.3 F 57 L 12 111/75 99 02/17/20 04:30 97.4 F L 58 L 16 116/71 99 Intake and Output 02/17/20 02/17/20 02/17/20 06:59 14:59 22:59 Intake Total 290 0 Output Total 650 400 Balance -650 -110 0 Intake: Intake, IV Titration 50 Amount Cefepime 1 gm In Sodium 50 Chloride 0.9% 50 ml @ 12. 5 mls/hr IVPB Q12HR [facility] Rx#:[id number] Oral 240 0 Output: Urine 650 400 Other: Voiding Method Indwelling Catheter Indwelling Catheter # Emeses 1 Weight 148 kg 146.5 kg GENERAL DESCRIPTION: Middle-aged male lying in bed, no distress. No tachypnea or accessory muscle of respiration use. HEENT: Shows Pallor , no scleral icterus. Oral mucous membrane is dry. No pharyngeal erythema or thrush NECK: Trachea central, no thyromegaly. LUNGS: Unlabored breathing. Clear to auscultation anteriorly. No wheeze or crackle. HEART: S1, S2, regular rate and rhythm. No loud murmur ABDOMEN: Soft, no tenderness , guarding or rigidity, no organomegaly EXTREMITIES: Bilateral lower extremities are currently wrapped up in Nils wrap Left heel wound with no drainage SKIN: No rash, no masses palpable. NEUROLOGICAL: The patient is awake, alert, oriented x3, mood and affect normal. Results CBC & Chem 7: 02/17/20 07:22 02/17/20 07:22 Labs: Abnormal Lab Results - Last 24 Hours (Table) 02/17/20 02/17/20 02/17/20 Range/Units 07:22 07:22 17:04 RBC 2.60 L (4.30-5.90) m/uL Hgb 8.0 L (13.0-17.5) gm/dL Hct 27.8 L (39.0-53.0) % MCV 107.0 H (80.0-100.0) fL MCHC 28.9 L (31.0-37.0) g/dL RDW 18.4 H (11.5-15.5) % Plt Count 124 L (150-450) k/uL Macrocytosis Marked A Chloride 112 H (98-107) mmol/L Carbon Dioxide 21 L (22-30) mmol/L BUN 97 H (9-20) mg/dL Creatinine 5.24 H (0.66-1.25) mg/dL Glucose 217 H (74-99) mg/dL POC Glucose (mg/dL) 278 H (75-99) mg/dL Calcium 6.4 L* (8.4-10.2) mg/dL 02/17/20 Range/Units 20:11 RBC (4.30-5.90) m/uL Hgb (13.0-17.5) gm/dL Hct (39.0-53.0) % MCV (80.0-100.0) fL MCHC (31.0-37.0) g/dL RDW (11.5-15.5) % Plt Count (150-450) k/uL Macrocytosis Chloride (98-107) mmol/L Carbon Dioxide (22-30) mmol/L BUN (9-20) mg/dL Creatinine (0.66-1.25) mg/dL Glucose (74-99) mg/dL POC Glucose (mg/dL) 242 H (75-99) mg/dL Calcium (8.4-10.2) mg/dL Assessment and Plan Assessment: 1- patient with her left heel stage IV pressure ulcer with underlying osteomyelitis, with the local wound culture were positive for Morganella sharp and anaerobes, likely the same pathogen subsequently admitted to the hospital with dorsum cellulitis and local culture were positive for Diann more likely colonizer 2-Patient with multiple antibiotic ALLERGIES that would limit the number of antibiotic safe to use 3-renal failure and high risk of nephrotoxicity (1) Acute osteomyelitis of left calcaneus Current Visit: No Status: Acute Code(s): M86.172 - OTHER ACUTE OSTEOMYELITIS, LEFT ANKLE AND FOOT SNOMED Code(s): 130250786 Plan: 1- cefepime 1 g daily dose and adjusted to kidney function 2-Flagyl 500 mg by mouth every 8 hours 3- local wound care with the fadi followed by moist dressing to be changed daily We will follow on clinical condition and cultures to further adjust medication if needed Thank you for this consultation will follow this patient with you Time with Patient: Greater than 30
--- NOTE | 2020-02-17 22:45 | CONS ---
CONSULTATION REASON FOR CONSULT: Renal failure. HISTORY OF PRESENT ILLNESS: The patient is a 49-year-old male who has a history of acute kidney injury and was on dialysis for about a month and then came off of dialysis. He was admitted to the hospital on 02/02/2020 and subsequently changed to hospice care and patient was discharged to hospice yesterday. However, it appears that his mentation has improved now and family wants him back as FULL CODE. Review of labs shows serum creatinine staying at about 5 mg/dL now. It has been increasing since 02/03/2020, with creatinine going up from 1.4 to 4.4 and now at about 5.3 mg/dL. Patient has an indwelling Josue catheter and urine output is not accurately charted. However, it appears that he has 1.4 L. The patient's blood pressure has been slightly on the lower side, although not significantly low. The patient is currently not on any nephrotoxic medications. He is maintained on IV Lasix, as chest x-ray showed significant pulmonary vascular congestion. The patient did have CT angiogram on 02/11/2020 with IV contrast. I do not have a recent urinalysis. Last UA was done on 02/12/2020 and showed 1+ protein, moderate blood and WBCs 11. PAST MEDICAL HISTORY: History of acute kidney injury requiring dialysis currently improved. History of type 2 diabetes, obstructive sleep apnea, obesity, CHF, neuropathy, history of MRSA infection. PAST SURGICAL HISTORY: Dialysis catheter placement. I&D of infection in the right shoulder. SOCIAL HISTORY: Negative for smoking, drug abuse or alcohol abuse. MEDICATIONS: Currently patient is on Coreg, aspirin, cefepime, Pepcid, Lasix, insulin, Flagyl, Synthroid, multivitamins. PHYSICAL EXAMINATION: On examination, patient is lying in bed. He is awake. He is not in any acute distress. He is not able to answer questions at this time but does communicate. Blood pressure was 116/71, heart rate 58 per minute. Patient is afebrile. EXAMINATION OF THE HEART: S1 and S2. EXAMINATION OF LUNGS: Bilateral breath sounds are heard. ABDOMEN: Soft, obese, non-tender. Examination of lower extremities shows edema 1+ bilaterally. [employer] O[employer]ATOR exam shows patient is moving all 4 extremities. LABS: Labs show sodium 139, potassium 4.7, chloride 112. CO2 is 21, BUN 97, serum creatinine 5.24, calcium 6.4, hemoglobin 8.0 g/dL. ASSESSMENT: 1. Acute kidney injury, most likely acute tubular necrosis. Patient did receive IV contrast for CT angiogram on 02/11/2020. Serum creatinine has been progressively increasing, although stable for the last 2-3 days. I will continue with IV Lasix since the patient does have evidence of volume overload. If his renal function does not improve, he may need to start dialysis again. Serum creatinine was all the way down to 1.0 mg/dL on 01/26/2020. 2. Anemia. No active bleeding noted at this time. Will maintain patient on Aranesp. Check iron profile. 3. Left heel wound with wound culture growing Diann. 4. History of chronic obstructive pulmonary disease, obstructive sleep apnea. 5. Encephalopathy. 6. Severe pulmonary hypertension. PLAN: Continue with IV Lasix. Repeat labs in a.m. Avoid any nephrotoxic agents. Continue with Josue catheter. Avoid hypotension. Thank you for this consultation. Will continue to follow the patient with you during his hospitalization. MMODL / IJN: [id number] /
--- NOTE | 2020-02-17 22:57 | P.HPIM ---
History of Present Illness History of present illness This 49 years old male with multiple medical problems who was admitted on 02/01 for bilateral leg cellulitis and sepsis, patient history of wound and debridement of the heel and possible osteomyelitis per Bone scan. Patient hospital course was complicated by "stroke which was called on 02/08, patient had global aphasia with negative CT of the brain and CTA of the brain which were nondiagnostic. No MRI could be done because of his body habitus. Patient also found to have severe tricuspid regurgitation and severe pulmonary hypertension. Patient developed acute hypoxic respiratory failure and he was in the ICU treated with BiPAP. Increase intercranial pressure was suspected but the guardian did not approve lumbar puncture to be done, eventually patient was made DO NOT RESUSCITATE and guardian and family opted for no procedure, eventually patient was already accepted by [facility] hospice team , however the last 2 days patient started waking up and he was alert awake and oriented to time place and person, he was short of breath and complaining from pain in his left leg, after discussion with the family and the patient they wanted to revoke hospice care and they want patient to be treated therefore patient will be discharged from hospice care and will be admitted under medicine Currently patient is awake and alert to time, place and person, he no at least [facility] in [place] and it is January 2020, and he noted name of the president troponin Patient is short of breath and he has difficulty finishing his sentences, however he is on 2 L oxygen via nasal cannula with oxygen saturation in 90s. Chest x-ray showing bilateral pulmonary congestion and patient is provided with Lasix 40 mg twice daily. His antibiotics including cefepime and Flagyl resumed and infectious disease were consulted for further recommendation. His creatinine has trended up to 5.24, compared to 1.9 on 02/01, [employer] team consulted. Also pulmonary team were consulted as they have evaluated him before. Consult has been placed for murray Gr as he is known to the service and has been evaluated by Dr. Mcgraw. Patient was on insulin at home, we'll start him on Levemir 5 units at bedtime plus insulin sliding scale Patient is with Josue catheter Review of Systems CONSTITUTIONAL: No fever, no malaise, no fatigue. HEENT: No recent visual problems or hearing problems. Denied any sore throat. CARDIOVASCULAR: No orthopnea, PND, no palpitations, no syncope. PULMONARY: no cough, no hemoptysis. GASTROINTESTINAL: No diarrhea, no nausea, no vomiting, no abdominal pain. Normoactive bowel sounds. NEUROLOGICAL: No headaches, no weakness, no numbness. HEMATOLOGICAL: Denies any bleeding or petechiae. GENITOURINARY: Denies any burning micturition, frequency, or urgency. MUSCULOSKELETAL/RHEUMATOLOGICAL: Denies any joint pain, swelling, or any muscle pain. ENDOCRINE: Denies any polyuria or polydipsia. Past Medical History Past Medical History: Heart Failure, CVA/TIA, Diabetes Mellitus, Dialysis, Renal Disease, Sleep Apnea/CPAP/BIPAP Additional Past Medical History / Comment(s): Patient had one month of hemodialysis in the past, pt. states that in August of 2019 he had a stroke and was admitted to [facility] during that time, Obesity, sepsis History of Any Multi-Drug Resistant Organisms: MRSA Date of last positivie culture/infection: 2004 MDRO Source:: Rt shoulder Past Surgical History: Orthopedic Surgery Additional Past Surgical History / Comment(s): carpal tunnel in right wrist, MRSA infection with drain in right shoulder 2004, Debridement of left foot ulcer 01/30/2020 Past Anesthesia/Blood Transfusion Reactions: No Reported Reaction Past Psychological History: No Psychological Hx Reported Smoking Status: Never smoker Past Alcohol Use History: None Reported Past Drug Use History: None Reported - Past Family History Father Family Medical History: Cancer Sister(s) Family Medical History: Cancer Additional Family Medical History / Comment(s): cervical cancer Brother(s) Family Medical History: Liver Disease Additional Family Medical History / Comment(s): from liver cirrhosis. another brother has throat cancer Medications and Allergies Home Medications Medication Instructions Recorded Confirmed Type Aspirin [Antrim Aspirin EC] 81 mg PO DAILY 01/24/20 02/16/20 History Multivitamins, Thera [Multivitamin 1 tab PO DAILY 01/24/20 02/16/20 History (formulary)] Famotidine [Pepcid] 20 mg PO Q12HR 30 Days #60 tab 01/30/20 02/16/20 Rx metroNIDAZOLE [Flagyl] 500 mg PO Q8HR #90 tab 01/30/20 02/16/20 Rx Acetaminophen [Tylenol] 650 mg PO Q8H PRN 02/02/20 02/16/20 History Carvedilol [Coreg] 12.5 mg PO BID 02/13/20 02/16/20 History Cefepime [Maxipime] 2 gm IVPB Q12HR 02/13/20 02/16/20 History Furosemide [Lasix] 20 mg PO DAILY 02/13/20 02/16/20 History Insulin Regular, Human [humulin R 110 unit SQ BID 02/13/20 02/16/20 History U-500 Kwikpen] Levothyroxine Sodium [Synthroid] 150 mcg PO DAILY 02/13/20 02/16/20 History Lisinopril [Zestril] 10 mg PO DAILY 02/13/20 02/16/20 History Spironolactone [Aldactone] 25 mg PO DAILY 02/13/20 02/16/20 History Allergies Allergy/AdvReac Type Severity Reaction Status Date / Time Penicillins Allergy Swelling Verified 02/02/20 12:35 Sulfa (Sulfonamide Allergy Unknown Verified 02/02/20 12:35 Antibiotics) Physical Exam Vitals: Vital Signs Temp Pulse Resp BP Pulse Ox 02/17/20 13:00 98.3 F 57 L 12 111/75 99 02/17/20 04:30 97.4 F L 58 L 16 116/71 99 02/16/20 20:13 97.6 F 75 20 126/88 98 Intake and Output 02/17/20 02/17/20 02/17/20 06:59 14:59 22:59 Intake Total 290 Output Total 650 400 Balance -650 -110 Intake: Intake, IV Titration 50 Amount Cefepime 1 gm In Sodium 50 Chloride 0.9% 50 ml @ 12. 5 mls/hr IVPB Q12HR [facility] Rx#:[id number] Oral 240 Output: Urine 650 400 Other: Voiding Method Indwelling Catheter Indwelling Catheter # Emeses 1 Weight 148 kg 146.5 kg -GENERAL: The patient is alert and oriented x3 to time place and person , not in any acute distress. Morbidly obese HEENT: Pupils are round and equally reacting to light. EOMI. No scleral icterus. No conjunctival pallor. Normocephalic, atraumatic. No pharyngeal erythema. No thyromegaly. CARDIOVASCULAR: S1 and S2 present. No murmurs, rubs, or gallops. -PULMONARY: Chest is clear to auscultation, no wheezin. Bilateral crepitation ABDOMEN: Soft, nontender, nondistended, normoactive bowel sounds. No palpable organomegaly. MUSCULOSKELETAL: No joint swelling or deformity. -EXTREMITIES: No cyanosis, clubbing, or pedal edema. Bilateral heel wounds and especially with black eschar on the left heel, dressing is in place -NEUROLOGICAL Patient is awake and oriented 3, slurred speech. No weakness is noted in the upper extremities. SKIN: No rashes. No petechiae Results CBC & Chem 7: 02/17/20 07:22 02/17/20 07:22 Labs: Abnormal Lab Results - Last 24 Hours (Table) 02/16/20 02/16/20 02/17/20 Range/Units 19:16 19:16 07:22 RBC 2.68 L 2.60 L (4.30-5.90) m/uL Hgb 8.3 L 8.0 L (13.0-17.5) gm/dL Hct 28.6 L 27.8 L (39.0-53.0) % MCV 106.7 H 107.0 H (80.0-100.0) fL MCHC 28.9 L 28.9 L (31.0-37.0) g/dL RDW 18.6 H 18.4 H (11.5-15.5) % Plt Count 143 L 124 L (150-450) k/uL Macrocytosis Marked A Marked A Chloride 112 H (98-107) mmol/L Carbon Dioxide 18 L (22-30) mmol/L BUN 99 H (9-20) mg/dL Creatinine 5.31 H (0.66-1.25) mg/dL Glucose 241 H (74-99) mg/dL POC Glucose (mg/dL) (75-99) mg/dL Calcium 6.7 L (8.4-10.2) mg/dL 02/17/20 02/17/20 Range/Units 07:22 17:04 RBC (4.30-5.90) m/uL Hgb (13.0-17.5) gm/dL Hct (39.0-53.0) % MCV (80.0-100.0) fL MCHC (31.0-37.0) g/dL RDW (11.5-15.5) % Plt Count (150-450) k/uL Macrocytosis Chloride 112 H (98-107) mmol/L Carbon Dioxide 21 L (22-30) mmol/L BUN 97 H (9-20) mg/dL Creatinine 5.24 H (0.66-1.25) mg/dL Glucose 217 H (74-99) mg/dL POC Glucose (mg/dL) 278 H (75-99) mg/dL Calcium 6.4 L* (8.4-10.2) mg/dL Thrombosis Risk Factor Assmnt - Choose All That Apply Any of the Below Risk Factors Present?: Yes Each Factor Represents 1 point: Medical pt on bed rest, Obesity (BMI >25), Sepsis (< 1month), Swollen legs (current) Other Risk Factors: No Other congenital or acquired thrombophilia - If yes, enter type in comment: No Thrombosis Risk Factor Assessment Total Risk Factor Score: 4 Thrombosis Risk Factor Assessment Level: Moderate Risk Assessment and Plan Assessment: Bilateral lower extremity cellulitis and osteomyelitis of the left calcaneal bone, with Left heel diabetic ulcer, status post debridement Acute hypoxic respiratory failure, secondary to pulmonary congestion as well as sepsis from his bilateral leg cellulitis and osteomyelitis, and severe pulmonary hypertension Acute kidney injury Altered mental status, secondary to metabolic encephalopathy with suspected stroke, also significantly improved patient is awake and oriented Anion gap metabolic acidosis Hypothyroidism Acute on chronic Systolic CHF , ejection fraction 45-50% Severe Pulmonary HTN History of Blood in the stool Type 2 diabetes mellitus poorly controlled with hyperglycemia Peripheral neuropathy CKD stage III Obstructive sleep apnea Possible obesity hypoventilation syndrome History of MRSA of the right shoulder Degenerative joint disease Morbid obesity with BMI 47.1 Plan: This is a pleasant 49 years old male who presents with left heel diabetic ulcer and osteomyelitis, occasionally and pulmonary congestion. Continue with antibiotics per ID team. Continue with IV Lasix. Nephrology and pulmonary consult. Continue with oxygen as needed, BiPAP as needed. Labs and medication were reviewed.. Continue same treatment. Continue with symptomatic treatment. Resume home medication. Monitor lytes and vitals. DVT and GI prophylaxis. Further recommendations of the clinical course of the patient DVT prophylaxis: Subcutaneous heparin GI Prophylaxis: Pepcid Prognosis is guarded
[2020-02-17] MEDS: INSULIN DETEMIR (LEVEMIR) 100 UNIT/ML SYR SQ SCH (23:09)
[2020-02-18 02:11] LABS: Glucose,Whole Blood 242 mg/dL (75-99)
[2020-02-18] MEDS: LEVOTHYROXINE 75 MCG TAB PO SCH (05:52)
[2020-02-18 07:02] LABS: Glucose,Whole Blood 186 mg/dL (75-99)
[2020-02-18] MEDS: carvediloL 12.5 MG TAB PO SCH ×2 (08:07→17:32)
[2020-02-18] MEDS: INSULIN ASPART (NovoLOG) 100 UNIT/ML VIAL SQ SCH ×4 (08:07→20:43)
[2020-02-18] MEDS: metroNIDAZOLE 500 MG TAB PO SCH ×3 (08:08→23:17)
[2020-02-18] MEDS: FAMOTIDINE 20 MG TAB PO SCH (08:08)
[2020-02-18] MEDS: HEPARIN SODIUM,PORCINE 5,000 UNIT/ML 1 ML VIAL SQ SCH ×2 (08:08→20:43)
[2020-02-18] MEDS: ASPIRIN 81 MG PO SCH (08:08)
[2020-02-18] MEDS: FUROSEMIDE 10 MG/ML 4 ML VIAL IV SCH ×2 (08:08→20:43)
[2020-02-18] MEDS: MULTIVITAMINS, THERA 1 EACH TAB PO SCH (08:09)
[2020-02-18 08:11] LABS: Calcium 6.6 mg/dL (8.4-10.2); Magnesium 1.7 mg/dL (1.6-2.3); Potassium 4.7 mmol/L (3.5-5.1)
[2020-02-18 08:38] LABS: Anisocytosis Slight; Basophils % (A) 0 %; Eosinophils # (A) 0.2 k/uL (0-0.7); Eosinophils % (A) 5 %; HCT 28.6 % (39.0-53.0); HGB 8.2 gm/dL (13.0-17.5); Hypochromasia Marked; Lymphocytes # (A) 0.9 k/uL (1.0-4.8); Lymphocytes % (A) 19 %; MCH 30.7 pg (25.0-35.0); MCHC 28.8 g/dL (31.0-37.0); MCV 106.7 fL (80.0-100.0); Macrocytosis Marked; Mean Platelet Volume 10.8; Monocytes # (A) 0.3 k/uL (0-1.0); Monocytes % (A) 6 %; Neutrophils # (A) 3.3 k/uL (1.3-7.7); Neutrophils % (A) 69 %; Platelet Count 102 k/uL (150-450); RBC 2.68 m/uL (4.30-5.90); RDW 17.9 % (11.5-15.5); WBC 4.8 k/uL (3.8-10.6)
[2020-02-18] MEDS: CEFEPIME 1 GM in SODIUM CHLORIDE 0.9% 50 ML IVPB SCH ×2 (09:08→20:43)
--- NOTE | 2020-02-18 11:03 | P.PN ---
Subjective Progress Note Date: 02/18/20 Principal diagnosis: Hypoxic respiratory failure secondary to sepsis This is a 49-year-old white male patient that we saw in consultation on 02/11/2020 last week for hypoxic respiratory failure related to sepsis, secondary to left calcaneal osteomyelitis, acute kidney injury, and patient was having neurological abnormalities that included global aphasia, and left upper extremity weakness, with a concern of meningoencephalitis, however LP was not performed because the patient's sister declined any aggressive medical treatment. CT of the brain did not show evidence of aneurysm or acute ischemia. Patient's was treated medically, his breathing was supported with BiPAP, he was receiving broad-spectrum antibiotics for osteomyelitis of the left calcaneus status post debridement. Patient codes status was DO NOT RESUSCITATE, per his next of kin, who is his sister, clinically patient was not improving, and she decided to place the patient in hospice comfort and initiate comfort care protocol. He was discharged into hospice care on 02/16/2020. Today we're asked to see the patient again on 02/17/2020. In the last 24 hours his mentation has significantly improved, is awake and alert, he remembered Dr. Brown from previously seen him in the pulmonary clinic on an outpatient basis where Dr. Brown treats him for history of COPD obstructive sleep apnea. Appears to be in no acute distress, resting comfortably in bed, we seen the patient on the general medical oncology floor. He is currently on 2 L of oxygen the pulse ox of 99%, hemodynamically stable, breathing is comfortable, nonlabored, he is afebrile. Today's labs have been reviewed, his white count is 5.0, hemoglobin is 8.0, sodium is 139, potassium is 4.7, chloride is 112, CO2 is 21, BUN of 97, creatinine is 5.24. His right leg and culture was positive for Diann, and left leg wound culture was Diann albicans. His blood culture from previous admission was negative. His antibiotics have been restarted with cefepime and Flagyl. Patient is edematous, and he has been started on IV Lasix at 40 mg every 12 hours. Appears stable right now, he is tolerating oral diet. The patient is seen today 02/18/2020 in follow-up on the oncology unit. He is awake and alert in no acute distress. He is maintaining good O2 saturations in the upper 90s on 2 L/m per nasal cannula. He is afebrile. White count 4.8. Hemoglobin 8.2. Platelets 102,000. Sodium 139. Potassium 4.7. Creatinine 5.13. He remains on IV diuretics. Cefepime. Flagyl. Objective - Vital Signs Vital signs: Vital Signs Temp 97.5 F L 02/18/20 04:53 Pulse 58 L 02/18/20 04:53 Resp 14 02/18/20 04:53 BP 114/75 02/18/20 04:53 Pulse Ox 99 02/18/20 04:53 Intake & Output 02/17/20 02/18/20 02/18/20 18:59 06:59 18:59 Intake Total 290 0 Output Total 400 550 Balance -110 -550 Weight 146.5 kg 147 kg Intake: Intake, IV Titration 50 Amount Cefepime 1 gm In Sodium 50 Chloride 0.9% 50 ml @ 12. 5 mls/hr IVPB Q12HR [facility] Rx#:[id number] Oral 240 0 Output: Urine 400 550 Other: Voiding Method Indwelling Catheter Indwelling Catheter Indwelling Catheter # Bowel Movements 0 # Emeses 1 - Exam GENERAL EXAM: Awake and alert, oriented 3, 49-year-old obese male patient, on 2 L of oxygen pulse ox of 99%, resting comfortable in bed, answering questions appropriately HEAD: Normocephalic/atraumatic. EYES: Normal reaction of pupils, left pupil measuring 5 mm, mildly reactive to light, right pupil is 2 mm in diameter reactive. Conjunctiva pink, sclera white. NOSE: Clear with pink turbinates. THROAT: No erythema or exudates. NECK: No masses, no JVD, no thyroid enlargement, no adenopathy. CHEST: No chest wall deformity. Symmetrical expansion. LUNGS: Equal air entry with crackles in the bilateral posterior bases. CVS: Regular rate and rhythm, normal S1 and S2, no gallops, no murmurs, no rubs ABDOMEN: Soft, nontender. No hepatosplenomegaly, normal bowel sounds, no guarding or rigidity. EXTREMITIES: No clubbing, significant edema involving upper and lower extremities, no cyanosis, 2+ pulses and upper and lower extremities. bilateral lower extremities covered with dressings MUSCULOSKELETAL: Muscle strength and tone normal. SPINE: No scoliosis or deformity SKIN: No rashes CENTRAL NERVOUS SYSTEM: Awake and alert, oriented 3 obese, 49-year-old white male, 2 L of oxygen, no facial asymmetry PSYCHIATRIC: Slow to respond - Labs CBC & Chem 7: 02/18/20 07:26 02/18/20 07:26 Labs: Abnormal Lab Results - Last 24 Hours (Table) 02/17/20 02/17/20 02/18/20 Range/Units 17:04 20:11 02:10 RBC (4.30-5.90) m/uL Hgb (13.0-17.5) gm/dL Hct (39.0-53.0) % MCV (80.0-100.0) fL MCHC (31.0-37.0) g/dL RDW (11.5-15.5) % Plt Count (150-450) k/uL Lymphocytes # (1.0-4.8) k/uL Macrocytosis Chloride (98-107) mmol/L Carbon Dioxide (22-30) mmol/L BUN (9-20) mg/dL Creatinine (0.66-1.25) mg/dL Glucose (74-99) mg/dL POC Glucose (mg/dL) 278 H 242 H 242 H (75-99) mg/dL Calcium (8.4-10.2) mg/dL 02/18/20 02/18/20 02/18/20 Range/Units 07:01 07:26 07:26 RBC 2.68 L (4.30-5.90) m/uL Hgb 8.2 L (13.0-17.5) gm/dL Hct 28.6 L (39.0-53.0) % MCV 106.7 H (80.0-100.0) fL MCHC 28.8 L (31.0-37.0) g/dL RDW 17.9 H (11.5-15.5) % Plt Count 102 L (150-450) k/uL Lymphocytes # 0.9 L (1.0-4.8) k/uL Macrocytosis Marked A Chloride 110 H (98-107) mmol/L Carbon Dioxide 19 L (22-30) mmol/L BUN 99 H (9-20) mg/dL Creatinine 5.13 H (0.66-1.25) mg/dL Glucose 153 H (74-99) mg/dL POC Glucose (mg/dL) 186 H (75-99) mg/dL Calcium 6.6 L (8.4-10.2) mg/dL Assessment and Plan Assessment: #1. Acute hypoxic respiratory failure, related to sepsis initially, actually improved, his chest x-ray shows congestive heart failure with pulmonary edema and pleural fluid. #2. Global aphasia and left upper extremity weakness, improved, and patient is verbally responding, and moving both upper extremities #3. Acute encephalopathy, due to sepsis, acute kidney injury, significantly improved #3. Acute non-anion gap metabolic acidosis, related to acute kidney injury #4. 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 Hypothyroidism, started on levothyroxin #6. Severe pulmonary hypertension with severe tricuspid regurgitation, likely secondary to underlying obstructive sleep apnea and chronic hypoxic respiratory failure #7. recent hospitalization for bilateral leg cellulitis and heel ulcers, status post surgical debridement, patient had a PICC line placed and discharged home on IV antibiotics #8. Diabetes mellitus type 2 with diabeticneuropathy #9. Chronic congestive heart failure, with diastolic dysfunction #10. Previous history of MRSA infection #11. Chronic kidney disease stage III, previously on hemodialysis for short p eriod of time #12. History of sleep apnea, unclear whether or not patient is compliant with CPAP #13. History o degenerative joint disease #14. Medical debility, gait dysfunction Plan: The patient was seen and evaluated by Dr. Brown He is currently stable from the pulmonary and critical care standpoint We'll continue the current treatment plan We'll continue to follow I, the cosigning physician, performed a history & physical examination of the patient. Lungs sounds with crackles in the bilateral posterior bases. Maintaining good O2 saturations in the 90s on 2 L/m per nasal cannula. I discussed the assessment and plan of care with my nurse practitioner, Elayne Arshad. I attest to the above note as dictated by her.
[2020-02-18 11:09] LABS: Glucose,Whole Blood 338 mg/dL (75-99)
--- NOTE | 2020-02-18 16:03 | PN ---
PROGRESS NOTE DATE OF SERVICE: 02/18/2020 REASON FOR FOLLOWUP: Left heel osteomyelitis. INTERVAL HISTORY: The patient is currently afebrile. The patient is awake, alert, breathing comfortably. Denies having any chest pain or shortness of breath or cough. No nausea. No vomiting. No abdominal pain or pain to the left heel. PHYSICAL EXAMINATION: Blood pressure 129/73 with a pulse of 57. Temperature is 97.4. He is 99% on 2 L nasal cannula. General description is a middle-aged male lying in bed in no distress. RESPIRATORY SYSTEM: Unlabored breathing. Clear to auscultation anteriorly. HEART: S1, S2. Regular rate and rhythm. ABDOMEN: Soft. No tenderness. Left heel is currently dressed up. No obvious drainage on the dressing. LABS: Hemoglobin 8.8, white count 4.8, BUN of 99, creatinine 5.13. DIAGNOSTIC IMPRESSION AND PLAN: Patient with left heel osteomyelitis. Previous culture positive for Morganella, strep, anaerobes. Patient is covered with cefepime and Flagyl; to continue. Local wound care with Medihoney followed by moist dressing. Keep the area off pressure. MMODL / IJN: [id number] /
[2020-02-18 17:26] LABS: Glucose,Whole Blood 159 mg/dL (75-99)
[2020-02-18 20:08] LABS: Glucose,Whole Blood 186 mg/dL (75-99)
[2020-02-18] MEDS: INSULIN DETEMIR (LEVEMIR) 100 UNIT/ML SYR SQ SCH (20:43)
--- NOTE | 2020-02-18 21:43 | PN ---
PROGRESS NOTE Patient is seen for followup for acute kidney injury on top of chronic kidney disease. This morning patient is comfortable, awake. He is alert and oriented x3. He states overall he is feeling better. The patient has an indwelling Josue catheter with urine output noted to be at about 1450 mL for the last 24 hours. PHYSICAL EXAMINATION: On examination today, blood pressure was 114/75, heart rate of 57 per minute. Patient is afebrile. EXAMINATION OF THE HEART: S1 and S2. EXAMINATION OF LUNGS: Bilateral breath sounds are heard. ABDOMEN: Soft, obese, non-tender. Examination of lower extremities shows edema 1+ bilaterally. Chronic skin changes noted. OPERATIONS SECTION MANAGER exam is grossly intact. LABS: Labs show sodium 139, potassium 4.7, chloride 110. CO2 is 19, BUN 99, creatinine 5.13, hemoglobin 8.2 g/dL, calcium 6.6. ASSESSMENT: 1. Acute kidney injury, most likely acute tubular necrosis, associated with some degree of hypotension, hypoperfusion. Patient also received IV contrast for CT angiogram on 02/11/2020. He currently has an indwelling Josue catheter. Renal function is fairly stable and at this time I will hold off on dialysis. 2. Volume overload, maintained on IV Lasix. Continue with the current dose of Lasix. 3. Left heel wound infection, maintained on antibiotics. 4. Encephalopathy, mostly metabolic, currently improved. 5. Lower extremity cellulitis with osteomyelitis, maintained on antibiotics, being followed by Infectious Disease. 6. Pulmonary hypertension, severe. 7. History of acute kidney injury, dependent on dialysis for about a month. 8. Congestive heart failure, systolic, acute on top of chronic. 9. Cardiomyopathy, ejection fraction 45% to 50%. PLAN: Continue with current dose of Lasix. Repeat labs in a.m. Continue to avoid nephrotoxic agents. No indication for dialysis at this point. Maintain Josue catheter for now. MMODL / IJN: [id number] /
--- NOTE | 2020-02-18 21:51 | P.PN ---
Subjective This 49 years old male with multiple medical problems who was admitted on 02/01 for bilateral leg cellulitis and sepsis, patient history of wound and debridement of the heel and possible osteomyelitis per Bone scan. Patient hospital course was complicated by "stroke which was called on 02/08, patient had global aphasia with negative CT of the brain and CTA of the brain which were nondiagnostic. No MRI could be done because of his body habitus. Patient also found to have severe tricuspid regurgitation and severe pulmonary hypertension. Patient developed acute hypoxic respiratory failure and he was in the ICU treated with BiPAP. Increase intercranial pressure was suspected but the guardian did not approve lumbar puncture to be done, eventually patient was made DO NOT RESUSCITATE and guardian and family opted for no procedure, eventually patient was already accepted by [facility] hospice team , however the last 2 days patient started waking up and he was alert awake and oriented to time place and person, he was short of breath and complaining from pain in his left leg, after discussion with the family and the patient they wanted to revoke hospice care and they want patient to be treated therefore patient will be discharged from hospice care and will be admitted under medicine Currently patient is awake and alert to time, place and person, he no at least [facility] in [place] and it is January 2020, and he noted name of the president troponin Patient is short of breath and he has difficulty finishing his sentences, how ever he is on 2 L oxygen via nasal cannula with oxygen saturation in 90s. Chest x-ray showing bilateral pulmonary congestion and patient is provided with Lasix 40 mg twice daily. His antibiotics including cefepime and Flagyl resumed and infectious disease were consulted for further recommendation. His creatinine has trended up to 5.24, compared to 1.9 on 02/01, Order Expediter team consulted. Also pulmonary team were consulted as they have evaluated him before. Consult has been placed for murray Gr as he is known to the service and has been evaluated by Dr. Mcgraw. Patient was on insulin at home, we'll start him on Levemir 5 units at bedtime plus insulin sliding scale Patient is with Josue catheter 02/18/2020 Patient was sitting in the chair today, he feels gradually improving. He is breathing quietly and he is saturating high 90s ambulatory oxygen via nasal cannula. He denies any specific complaint "chest pain or dyspnea on abdominal pain or nausea vomiting, he has some loose stool but C. diff was negative. He still have pain in his left lower leg secondary to cellulitis and also myelitis of the left heel. His creatinine still on the high side but this is stable, patient continue on antibiotics and IV Lasix Objective - Vital Signs Vital signs: Vital Signs Temp 98.1 F 02/18/20 20:51 Pulse 60 02/18/20 20:51 Resp 16 02/18/20 20:51 BP 122/77 02/18/20 20:51 Pulse Ox 98 02/18/20 20:51 Intake & Output 02/18/20 02/18/20 02/19/20 06:59 18:59 06:59 Intake Total 0 405 Output Total 550 500 Balance -550 -95 Weight 147 kg Intake: Intake, IV Titration 50 Amount Cefepime 1 gm In Sodium 50 Chloride 0.9% 50 ml @ 12. 5 mls/hr IVPB Q12HR [facility] Rx#:[id number] Oral 0 355 Output: Urine 550 500 Uretheral (Josue) 500 Other: Voiding Method Indwelling Catheter Indwelling Catheter # Bowel Movements 0 - Exam GENERAL: The patient is alert and oriented x3, not in any acute distress. Morbidly obese HEENT: Pupils are round and equally reacting to light. EOMI. No scleral icterus. No conjunctival pallor. Normocephalic, atraumatic. No pharyngeal erythema. No t hyromegaly. CARDIOVASCULAR: S1 and S2 present. No murmurs, rubs, or gallops. PULMONARY: Chest is clear to auscultation, no wheezing or crackles. ABDOMEN: Soft, nontender, nondistended, normoactive bowel sounds. No palpable organomegaly. MUSCULOSKELETAL: No joint swelling or deformity. -EXTREMITIES: No cyanosis, clubbing, or pedal edema. Bilateral heel wounds and especially with black eschar on the left heel, dressing is in place NEUROLOGICAL: Gross neurological examination did not reveal any focal deficits. SKIN: No rashes. no petechiae. - Labs CBC & Chem 7: 02/18/20 07:26 02/18/20 07:26 Labs: Abnormal Lab Results - Last 24 Hours (Table) 02/18/20 02/18/20 02/18/20 Range/Units 02:10 07:01 07:26 RBC 2.68 L (4.30-5.90) m/uL Hgb 8.2 L (13.0-17.5) gm/dL Hct 28.6 L (39.0-53.0) % MCV 106.7 H (80.0-100.0) fL MCHC 28.8 L (31.0-37.0) g/dL RDW 17.9 H (11.5-15.5) % Plt Count 102 L (150-450) k/uL Lymphocytes # 0.9 L (1.0-4.8) k/uL Macrocytosis Marked A Chloride (98-107) mmol/L Carbon Dioxide (22-30) mmol/L BUN (9-20) mg/dL Creatinine (0.66-1.25) mg/dL Glucose (74-99) mg/dL POC Glucose (mg/dL) 242 H 186 H (75-99) mg/dL Calcium (8.4-10.2) mg/dL 02/18/20 02/18/20 02/18/20 Range/Units 07:26 11:07 17:24 RBC (4.30-5.90) m/uL Hgb (13.0-17.5) gm/dL Hct (39.0-53.0) % MCV (80.0-100.0) fL MCHC (31.0-37.0) g/dL RDW (11.5-15.5) % Plt Count (150-450) k/uL Lymphocytes # (1.0-4.8) k/uL Macrocytosis Chloride 110 H (98-107) mmol/L Carbon Dioxide 19 L (22-30) mmol/L BUN 99 H (9-20) mg/dL Creatinine 5.13 H (0.66-1.25) mg/dL Glucose 153 H (74-99) mg/dL POC Glucose (mg/dL) 338 H 159 H (75-99) mg/dL Calcium 6.6 L (8.4-10.2) mg/dL 02/18/20 Range/Units 20:06 RBC (4.30-5.90) m/uL Hgb (13.0-17.5) gm/dL Hct (39.0-53.0) % MCV (80.0-100.0) fL MCHC (31.0-37.0) g/dL RDW (11.5-15.5) % Plt Count (150-450) k/uL Lymphocytes # (1.0-4.8) k/uL Macrocytosis Chloride (98-107) mmol/L Carbon Dioxide (22-30) mmol/L BUN (9-20) mg/dL Creatinine (0.66-1.25) mg/dL Glucose (74-99) mg/dL POC Glucose (mg/dL) 186 H (75-99) mg/dL Calcium (8.4-10.2) mg/dL Assessment and Plan Assessment: Bilateral lower extremity cellulitis and osteomyelitis of the left calcaneal bone, with Left heel diabetic ulcer, status post debridement Acute hypoxic respiratory failure, secondary to pulmonary congestion as well as sepsis from his bilateral leg cellulitis and osteomyelitis, and severe pulmonary hypertension Acute kidney injury Altered mental status, secondary to metabolic encephalopathy with suspected stroke, also significantly improved patient is awake and oriented Anion gap metabolic acidosis Hypothyroidism Acute on chronic Systolic CHF , ejection fraction 45-50% Severe Pulmonary HTN History of Blood in the stool Type 2 diabetes mellitus poorly controlled with hyperglycemia Peripheral neuropathy CKD stage III Obstructive sleep apnea Possible obesity hypoventilation syndrome History of MRSA of the right shoulder Degenerative joint disease Morbid obesity with BMI 47.1 Plan: This is a pleasant 49 years old male who presents with left heel diabetic ulcer and osteomyelitis, occasionally and pulmonary congestion. Continue with antibiotics per ID team. Continue with IV Lasix. Nephrology and pulmonary consult. Continue with oxygen as needed, BiPAP as needed. Patient may need hemodialysis if no improvement. Labs and medication were reviewed.. Continue same treatment. Continue with symptomatic treatment. Resume home medication. Monitor lytes and vitals. DVT and GI prophylaxis. Further recommendations of the clinical course of the patient DVT prophylaxis: Subcutaneous heparin GI Prophylaxis: Pepcid Prognosis is guarded
[2020-02-19] MEDS: LEVOTHYROXINE 75 MCG TAB PO SCH (05:49)
[2020-02-19 06:59] LABS: Glucose,Whole Blood 159 mg/dL (75-99)
[2020-02-19 07:34] LABS: Anisocytosis Slight; Basophils % (A) 0 %; Eosinophils # (A) 0.2 k/uL (0-0.7); Eosinophils % (A) 5 %; HCT 28.5 % (39.0-53.0); HGB 8.1 gm/dL (13.0-17.5); Hypochromasia Marked; Lymphocytes # (A) 0.9 k/uL (1.0-4.8); Lymphocytes % (A) 17 %; MCH 30.1 pg (25.0-35.0); MCHC 28.2 g/dL (31.0-37.0); MCV 106.4 fL (80.0-100.0); Macrocytosis Marked; Mean Platelet Volume 10.6; Monocytes # (A) 0.3 k/uL (0-1.0); Monocytes % (A) 6 %; Neutrophils # (A) 3.4 k/uL (1.3-7.7); Neutrophils % (A) 70 %; Platelet Count 112 k/uL (150-450); Poikilocytosis Slight; RBC 2.68 m/uL (4.30-5.90); RDW 18.7 % (11.5-15.5); WBC 4.9 k/uL (3.8-10.6)
[2020-02-19] MEDS: CEFEPIME 1 GM in SODIUM CHLORIDE 0.9% 50 ML IVPB SCH ×2 (08:25→21:07)
[2020-02-19] MEDS: MULTIVITAMINS, THERA 1 EACH TAB PO SCH (08:25)
[2020-02-19] MEDS: metroNIDAZOLE 500 MG TAB PO SCH ×2 (08:25→18:16)
[2020-02-19] MEDS: carvediloL 12.5 MG TAB PO SCH ×2 (08:25→18:16)
[2020-02-19] MEDS: FAMOTIDINE 20 MG TAB PO SCH (08:25)
[2020-02-19] MEDS: HEPARIN SODIUM,PORCINE 5,000 UNIT/ML 1 ML VIAL SQ SCH ×2 (08:25→21:08)
[2020-02-19] MEDS: FUROSEMIDE 10 MG/ML 4 ML VIAL IV SCH ×2 (08:25→21:08)
[2020-02-19] MEDS: INSULIN ASPART (NovoLOG) 100 UNIT/ML VIAL SQ SCH ×4 (08:25→21:07)
[2020-02-19] MEDS: ASPIRIN 81 MG PO SCH (08:25)
--- NOTE | 2020-02-19 08:32 | P.PN ---
Subjective This 49 years old male with multiple medical problems who was admitted on 02/01 for bilateral leg cellulitis and sepsis, patient history of wound and debridement of the heel and possible osteomyelitis per Bone scan. Patient hospital course was complicated by "stroke which was called on 02/08, patient had global aphasia with negative CT of the brain and CTA of the brain which were nondiagnostic. No MRI could be done because of his body habitus. Patient also found to have severe tricuspid regurgitation and severe pulmonary hypertension. Patient developed acute hypoxic respiratory failure and he was in the ICU treated with BiPAP. Increase intercranial pressure was suspected but the guardian did not approve lumbar puncture to be done, eventually patient was made DO NOT RESUSCITATE and guardian and family opted for no procedure, eventually patient was already accepted by [facility] hospice team , however the last 2 days patient started waking up and he was alert awake and oriented to time place and person, he was short of breath and complaining from pain in his left leg, after discussion with the family and the patient they wanted to revoke hospice care and they want patient to be treated therefore patient will be discharged from hospice care and will be admitted under medicine Currently patient is awake and alert to time, place and person, he no at least [facility] in [place] and it is January 2020, and he noted name of the president troponin Patient is short of breath and he has difficulty finishing his sentences, how ever he is on 2 L oxygen via nasal cannula with oxygen saturation in 90s. Chest x-ray showing bilateral pulmonary congestion and patient is provided with Lasix 40 mg twice daily. His antibiotics including cefepime and Flagyl resumed and infectious disease were consulted for further recommendation. His creatinine has trended up to 5.24, compared to 1.9 on 02/01, Chemical Process [employer] team consulted. Also pulmonary team were consulted as they have evaluated him before. Consult has been placed for murray Gr as he is known to the service and has been evaluated by Dr. Mcgraw. Patient was on insulin at home, we'll start him on Levemir 5 units at bedtime plus insulin sliding scale Patient is with Josue catheter 02/18/2020 Patient was sitting in the chair today, he feels gradually improving. He is breathing quietly and he is saturating high 90s ambulatory oxygen via nasal cannula. He denies any specific complaint "chest pain or dyspnea on abdominal pain or nausea vomiting, he has some loose stool but C. diff was negative. He still have pain in his left lower leg secondary to cellulitis and also myelitis of the left heel. His creatinine still on the high side but this is stable, patient continue on antibiotics and IV Lasix 02/19/2020 Patient clinically looks the same as yesterday, his breathing quietly on 2 L oxygen via nasal cannula, he still have some dyspnea with difficulty to finish her sentences. However no tachypnea no chest pain, no orthopnea. No abdominal pain, he has some loose bowel movement however C. diff came back negative. CBC is stable. She still has a Josue catheter, however his fluid status looks like not improving as supposed to be, patient may need hemodialysis as per nephrology recommendation. In the meantime continue with Lasix, continue with antibiotics and ID team on the case Objective - Vital Signs Vital signs: Vital Signs Temp 97.3 F L 02/19/20 05:00 Pulse 63 02/19/20 05:00 Resp 16 02/19/20 05:00 BP 139/82 02/19/20 05:00 Pulse Ox 97 02/19/20 05:00 Intake & Output 02/18/20 02/19/20 02/19/20 18:59 06:59 18:59 Intake Total 405 640 Output Total 500 700 Balance -95 -60 Weight 151 kg Intake: Intake, IV Titration 50 50 Amount Cefepime 1 gm In Sodium 50 50 Chloride 0.9% 50 ml @ 12. 5 mls/hr IVPB Q12HR [facility], [facility]–1983 Rx#:[id number] Oral 355 590 Output: Urine 500 700 Uretheral (Josue) 500 700 Other: Voiding Method Indwelling Catheter Indwelling Catheter - Exam GENERAL: The patient is alert and oriented x3, not in any acute distress. Morbidly obese HEENT: Pupils are round and equally reacting to light. EOMI. No scleral icterus. No conjunctival pallor. Normocephalic, atraumatic. No pharyngeal erythema. No thyromegaly. CARDIOVASCULAR: S1 and S2 present. No murmurs, rubs, or gallops. PULMONARY: Chest is clear to auscultation, no wheezing or crackles. ABDOMEN: Soft, nontender, nondistended, normoactive bowel sounds. No palpable organomegaly. MUSCULOSKELETAL: No joint swelling or deformity. -EXTREMITIES: No cyanosis, clubbing, or pedal edema. Bilateral heel wounds and especially with black eschar on the left heel, dressing is in place NEUROLOGICAL: Gross neurological examination did not reveal any focal deficits. SKIN: No rashes. no petechiae. - Labs CBC & Chem 7: 02/19/20 06:48 02/18/20 07:26 Labs: Abnormal Lab Results - Last 24 Hours (Table) 02/18/20 02/18/20 02/18/20 Range/Units 07:26 11:07 17:24 RBC 2.68 L (4.30-5.90) m/uL Hgb 8.2 L (13.0-17.5) gm/dL Hct 28.6 L (39.0-53.0) % MCV 106.7 H (80.0-100.0) fL MCHC 28.8 L (31.0-37.0) g/dL RDW 17.9 H (11.5-15.5) % Plt Count 102 L (150-450) k/uL Lymphocytes # 0.9 L (1.0-4.8) k/uL Macrocytosis Marked A POC Glucose (mg/dL) 338 H 159 H (75-99) mg/dL 02/18/20 02/19/20 02/19/20 Range/Units 20:06 06:48 06:58 RBC 2.68 L (4.30-5.90) m/uL Hgb 8.1 L (13.0-17.5) gm/dL Hct 28.5 L (39.0-53.0) % MCV 106.4 H (80.0-100.0) fL MCHC 28.2 L (31.0-37.0) g/dL RDW 18.7 H (11.5-15.5) % Plt Count 112 L (150-450) k/uL Lymphocytes # (1.0-4.8) k/uL Macrocytosis Marked A POC Glucose (mg/dL) 186 H 159 H (75-99) mg/dL Assessment and Plan Assessment: Bilateral lower extremity cellulitis and osteomyelitis of the left calcaneal bone, with Left heel diabetic ulcer, status post debridement Acute hypoxic respiratory failure, secondary to pulmonary congestion as well as sepsis from his bilateral leg cellulitis and osteomyelitis, and severe pulmonary hypertension Acute kidney injury Altered mental status, secondary to metabolic encephalopathy with suspected stroke, also significantly improved patient is awake and oriented Anion gap metabolic acidosis Hypothyroidism Acute on chronic Systolic CHF , ejection fraction 45-50% Severe Pulmonary HTN History of Blood in the stool Type 2 diabetes mellitus poorly controlled with hyperglycemia Peripheral neuropathy CKD stage III Obstructive sleep apnea Possible obesity hypoventilation syndrome History of MRSA of the right shoulder Degenerative joint disease Morbid obesity with BMI 47.1 Plan: This is a pleasant 49 years old male who presents with left heel diabetic ulcer and osteomyelitis, occasionally and pulmonary congestion. Continue with antibiotics per ID team. Continue with IV Lasix. Nephrology and pulmonary consult. Continue with oxygen as needed, BiPAP as needed. Patient may need hemodialysis if no improvement. Labs and medication were reviewed.. Continue same treatment. Continue with symptomatic treatment. Resume home medication. Monitor lytes and vitals. DVT and GI prophylaxis. Further recommendations of the clinical course of the patient DVT prophylaxis: Subcutaneous heparin GI Prophylaxis: Pepcid Prognosis is guarded
[2020-02-19 08:38] LABS: Calcium 6.8 mg/dL (8.4-10.2); Magnesium 1.8 mg/dL (1.6-2.3); Potassium 4.7 mmol/L (3.5-5.1)
--- NOTE | 2020-02-19 11:03 | P.PN ---
Subjective Progress Note Date: 02/19/20 Principal diagnosis: Hypoxic respiratory failure secondary to sepsis This is a 49-year-old white male patient that we saw in consultation on 02/11/2020 last week for hypoxic respiratory failure related to sepsis, secondary to left calcaneal osteomyelitis, acute kidney injury, and patient was having neurological abnormalities that included global aphasia, and left upper extremity weakness, with a concern of meningoencephalitis, however LP was not performed because the patient's sister declined any aggressive medical treatment. CT of the brain did not show evidence of aneurysm or acute ischemia. Patient's was treated medically, his breathing was supported with BiPAP, he was receiving broad-spectrum antibiotics for osteomyelitis of the left calcaneus status post debridement. Patient codes status was DO NOT RESUSCITATE, per his next of kin, who is his sister, clinically patient was not improving, and she decided to place the patient in hospice comfort and initiate comfort care protocol. He was discharged into hospice care on 02/16/2020. Today we're asked to see the patient again on 02/17/2020. In the last 24 hours his mentation has significantly improved, is awake and alert, he remembered Dr. Brown from previously seen him in the pulmonary clinic on an outpatient basis where Dr. Brown treats him for history of COPD obstructive sleep apnea. Appears to be in no acute distress, resting comfortably in bed, we seen the patient on the general medical oncology floor. He is currently on 2 L of oxygen the pulse ox of 99%, hemodynamically stable, breathing is comfortable, nonlabored, he is afebrile. Today's labs have been reviewed, his white count is 5.0, hemoglobin is 8.0, sodium is 139, potassium is 4.7, chloride is 112, CO2 is 21, BUN of 97, creatinine is 5.24. His right leg and culture was positive for Diann, and left leg wound culture was Diann albicans. His blood culture from previous admission was negative. His antibiotics have been restarted with cefepime and Flagyl. Patient is edematous, and he has been started on IV Lasix at 40 mg every 12 hours. Appears stable right now, he is tolerating oral diet. The patient is seen today 02/18/2020 in follow-up on the oncology unit. He is awake and alert in no acute distress. He is maintaining good O2 saturations in the upper 90s on 2 L/m per nasal cannula. He is afebrile. White count 4.8. Hemoglobin 8.2. Platelets 102,000. Sodium 139. Potassium 4.7. Creatinine 5.13. He remains on IV diuretics. Cefepime. Flagyl. The patient is seen today 02/19/2020 in follow-up on the oncology unit. He is currently sitting up in a chair at the bedside. Awake and alert in no acute d istress. Maintaining good O2 saturations in the 90s on 2 L/m per nasal cannula. He is afebrile. Hemodynamically stable. White count 4.9. Hemoglobin 8.1. Sodium 131. Potassium 4.7. Creatinine 5.18. Glucose 159. C. difficile screen negative. He remains on cefepime and Flagyl. Remains on IV diuretics. Objective - Vital Signs Vital signs: Vital Signs Temp 97.3 F L 02/19/20 05:00 Pulse 63 02/19/20 05:00 Resp 16 02/19/20 05:00 BP 139/82 02/19/20 05:00 Pulse Ox 97 02/19/20 05:00 Intake & Output 02/18/20 02/19/20 02/19/20 18:59 06:59 18:59 Intake Total 405 640 480 Output Total 500 700 Balance -95 -60 480 Weight 151 kg Intake: Intake, IV Titration 50 50 Amount Cefepime 1 gm In Sodium 50 50 Chloride 0.9% 50 ml @ 12. 5 mls/hr IVPB Q12HR [facility] Rx#:[id number] Oral 355 590 480 Output: Urine 500 700 Uretheral (Josue) 500 700 Other: Voiding Method Indwelling Catheter Indwelling Catheter Indwelling Catheter - Exam GENERAL EXAM: Awake and alert, oriented 3, 49-year-old morbidly obese male patient, on 2 L of oxygen pulse ox of 97%, resting comfortable in bed, answering questions appropriately HEAD: Normocephalic/atraumatic. EYES: Normal reaction of pupils, left pupil measuring 5 mm, mildly reactive to light, right pupil is 2 mm in diameter reactive. Conjunctiva pink, sclera white. NOSE: Clear with pink turbinates. THROAT: No erythema or exudates. NECK: No masses, no JVD, no thyroid enlargement, no adenopathy. CHEST: No chest wall deformity. Symmetrical expansion. LUNGS: Equal air entry with crackles in the bilateral posterior bases. CVS: Regular rate and rhythm, normal S1 and S2, no gallops, no murmurs, no rubs ABDOMEN: Soft, nontender. No hepatosplenomegaly, normal bowel sounds, no guarding or rigidity. EXTREMITIES: No clubbing, significant edema involving upper and lower extremities, no cyanosis, 2+ pulses and upper and lower extremities. bilateral lower extremities covered with dressings MUSCULOSKELETAL: Muscle strength and tone normal. SPINE: No scoliosis or deformity SKIN: No rashes CENTRAL NERVOUS SYSTEM: Awake and alert, oriented 3, no facial asymmetry PSYCHIATRIC: Slow to respond - Labs CBC & Chem 7: 02/19/20 06:48 02/19/20 06:48 Labs: Abnormal Lab Results - Last 24 Hours (Table) 02/18/20 02/18/20 02/18/20 Range/Units 11:07 17:24 20:06 RBC (4.30-5.90) m/uL Hgb (13.0-17.5) gm/dL Hct (39.0-53.0) % MCV (80.0-100.0) fL MCHC (31.0-37.0) g/dL RDW (11.5-15.5) % Plt Count (150-450) k/uL Lymphocytes # (1.0-4.8) k/uL Macrocytosis Chloride (98-107) mmol/L Carbon Dioxide (22-30) mmol/L BUN (9-20) mg/dL Creatinine (0.66-1.25) mg/dL Glucose (74-99) mg/dL POC Glucose (mg/dL) 338 H 159 H 186 H (75-99) mg/dL Calcium (8.4-10.2) mg/dL 02/19/20 02/19/20 02/19/20 Range/Units 06:48 06:48 06:58 RBC 2.68 L (4.30-5.90) m/uL Hgb 8.1 L (13.0-17.5) gm/dL Hct 28.5 L (39.0-53.0) % MCV 106.4 H (80.0-100.0) fL MCHC 28.2 L (31.0-37.0) g/dL RDW 18.7 H (11.5-15.5) % Plt Count 112 L (150-450) k/uL Lymphocytes # 0.9 L (1.0-4.8) k/uL Macrocytosis Marked A Chloride 110 H (98-107) mmol/L Carbon Dioxide 19 L (22-30) mmol/L BUN 101 H* (9-20) mg/dL Creatinine 5.18 H (0.66-1.25) mg/dL Glucose 138 H (74-99) mg/dL POC Glucose (mg/dL) 159 H (75-99) mg/dL Calcium 6.8 L (8.4-10.2) mg/dL Assessment and Plan Assessment: #1. Acute hypoxic respiratory failure, related to sepsis initially, actually improved, his chest x-ray shows congestive heart failure with pulmonary edema and pleural fluid. #2. Global aphasia and left upper extremity weakness, improved, and patient is verbally responding, and moving both upper extremities #3. Acute encephalopathy, due to sepsis, acute kidney injury, significantly i mproved #3. Acute non-anion gap metabolic acidosis, related to acute kidney injury #4. 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 Hypothyroidism, started on levothyroxin #6. Severe pulmonary hypertension with severe tricuspid regurgitation, likely secondary to underlying obstructive sleep apnea and chronic hypoxic respiratory failure #7. recent hospitalization for bilateral leg cellulitis and heel ulcers, status post surgical debridement, patient had a PICC line placed and discharged home on IV antibiotics #8. Diabetes mellitus type 2 with diabeticneuropathy #9. Chronic congestive heart failure, with diastolic dysfunction #10. Previous history of MRSA infection #11. Chronic kidney disease stage III, previously on hemodialysis for short period of time #12. History of sleep apnea, unclear whether or not patient is compliant with CPAP #13. History o degenerative joint disease #14. Medical debility, gait dysfunction Plan: The patient was seen and evaluated by Dr. Brown He is currently stable from the pulmonary and critical care standpoint We will follow on an as-needed basis I, the cosigning physician, performed a history & physical examination of the patient. Lungs sounds with crackles in the bilateral posterior bases. Maintaining good O2 saturations in the 90s on 2 L/m per nasal cannula. I discussed the assessment and plan of care with my nurse practitioner, Elayne maynard. I attest to the above note as dictated by her.
[2020-02-19 12:01] LABS: Glucose,Whole Blood 174 mg/dL (75-99)
--- NOTE | 2020-02-19 13:27 | CDI ---
Documentation Clarification Form Date: 02/19/2020 01:19:49 PM From: Arabella Peterson RN, CCDS Admit Date: 02/16/2020 03:38:00 PM Patient Name: Brown Lopez Visit Number: [id number] ATTENTION: The Clinical Documentation Specialists (CDI) and [facility] Coding Staff appreciate your assistance in clarifying documentation. Please respond to the clarification below the line at the bottom and electronically sign. The CDI & [facility] Coding staff will review the response and follow-up if needed. Please note: Queries are made part of the Legal Health Record. If you have any questions, please contact the author of this message via ITS. Dr. Purcell E Sheet Anemia is documented in the (insert date/location of documentation/diagnosis (es) 02/16 Nephrology consult with a consistently low Hgb since admission. Please provide clinical significance. History/Risk Factors: CHF, CVA, DM, Deep w/ ATN on CKD stage 3, Stage 4 pressure ulcer with underlying osteomyelitis of left calcanous Clinical indicator Hemoglobin: 8.3/8/8.2/8.1 02/15-02/18 Hematocrit: 28.6/27.8/28.6/28.5 Treatment: Theragran Po QD Lab Monitoring AM Daily In order to capture the severity of condition, please clarify the type of anemia and etiology if known. Chronic blood loss anemia Iron deficiency anemia Nutritional anemia Anemia of chronic kidney disease Anemia of chronic disease Unable to determine Other, please specify (Last Form Revision: August 2019) Unable to determine MTDD
--- NOTE | 2020-02-19 17:23 | PN ---
PROGRESS NOTE Patient is seen for followup for acute kidney injury. He is currently sitting up in a bedside chair. Patient is comfortable. He is complaining of pain all over his body. He has an indwelling Josue catheter and has had good urine output with 24-hour output of 1200 mL. Serum creatinine remains elevated at about 5.1 mg/dL. PHYSICAL EXAMINATION: Patient is comfortable. Blood pressure is 102/71, heart rate 58 per minute. He is afebrile. EXAMINATION OF THE HEART: S1 and S2. EXAMINATION OF LUNGS: Bilateral breath sounds are heard. ABDOMEN: Soft, non-tender. Examination of lower extremities shows edema 1+ bilaterally, upper and lower extremities. [employer] WORKER exam is grossly intact. LABS: Labs show sodium 139, potassium 4.7, chloride 110. CO2 is 19, BUN 101, creatinine 5.18, hemoglobin 8.1 g/dL. ASSESSMENT: 1. Acute kidney injury, mostly acute tubular necrosis, currently nonoliguric, with indwelling Josue catheter. Renal function remains stable for the last 2-3 days. Patient's mentation has improved and he is responding to the IV Lasix. Therefore we will hold off on starting dialysis yet. 2. History of acute kidney injury with dialysis-dependent renal failure for about one month. The patient has been off of dialysis for more than 2-3 months. His lowest creatinine was about 1.0 mg/dL on 01/26/2020, post discontinuation of dialysis. 3. Volume overload, currently maintained on IV Lasix and improving. Echocardiogram showed ejection fraction of 45% to 50%. 4. Cardiomyopathy, ejection fraction 45% to 50%, and a moderately dilated left atrium and severe pulmonary hypertension. 5. History of recent aphasia and encephalopathy, which seems to have significantly improved currently. 6. Left calcaneal osteomyelitis with sepsis, currently maintained on antibiotics. PLAN: Continue with Lasix. Will monitor on a daily basis regarding need to start dialysis. MMODL / IJN: [id number] /
[2020-02-19 17:30] LABS: Glucose,Whole Blood 156 mg/dL (75-99)
[2020-02-19 19:59] LABS: Glucose,Whole Blood 173 mg/dL (75-99)
[2020-02-19] MEDS: INSULIN DETEMIR (LEVEMIR) 100 UNIT/ML SYR SQ SCH (21:08)
[2020-02-20] MEDS: metroNIDAZOLE 500 MG TAB PO SCH ×4 (00:34→23:49)
[2020-02-20 02:14] LABS: Glucose,Whole Blood 165 mg/dL (75-99)
--- NOTE | 2020-02-20 02:24 | PN ---
PROGRESS NOTE DATE OF SERVICE: 02/19/2020 REASON FOR FOLLOWUP: Left heel osteomyelitis. INTERVAL HISTORY: The patient is currently afebrile. The patient is breathing comfortably. Denies having any chest pain or shortness of breath or cough. No nausea, no vomiting. No abdominal pain or pain to the left heel. PHYSICAL EXAMINATION: Blood pressure is 124/77 with pulse of 60, temperature 97.5. He is 98% on 2 L nasal cannula. General description is a middle-aged male lying in bed in no distress. RESPIRATORY SYSTEM: Unlabored breathing, decreased breath sounds in the base, no wheeze HEART: S1, S2. Regular rate and rhythm. ABDOMEN: Soft, no tenderness. LABS: Hemoglobin 8.1, white count 4.9, BUN of 101, creatinine 5.18. DIAGNOSTIC IMPRESSION AND PLAN: Patient with left heel osteomyelitis for which the patient is currently on cefepime and Flagyl to continue. Local care with Medihoney and moist dressing. Continue with supportive care. MMODL / IJN: [id number] /
[2020-02-20] MEDS: LEVOTHYROXINE 75 MCG TAB PO SCH (06:10)
[2020-02-20 07:20] LABS: Glucose,Whole Blood 130 mg/dL (75-99)
[2020-02-20] MEDS: INSULIN ASPART (NovoLOG) 100 UNIT/ML VIAL SQ SCH ×4 (07:43→21:06)
[2020-02-20] MEDS: carvediloL 12.5 MG TAB PO SCH ×2 (07:44→16:28)
[2020-02-20] MEDS: ASPIRIN 81 MG PO SCH (08:07)
[2020-02-20] MEDS: HEPARIN SODIUM,PORCINE 5,000 UNIT/ML 1 ML VIAL SQ SCH ×2 (08:07→21:06)
[2020-02-20] MEDS: FUROSEMIDE 10 MG/ML 4 ML VIAL IV SCH ×2 (08:07→21:06)
[2020-02-20] MEDS: FAMOTIDINE 20 MG TAB PO SCH (08:07)
[2020-02-20] MEDS: CEFEPIME 1 GM in SODIUM CHLORIDE 0.9% 50 ML IVPB SCH ×2 (08:07→21:06)
[2020-02-20] MEDS: MULTIVITAMINS, THERA 1 EACH TAB PO SCH (08:08)
[2020-02-20] MEDS: ACETAMINOPHEN TAB 325 MG TAB PO PRN (10:12)
[2020-02-20 11:23] LABS: Glucose,Whole Blood 147 mg/dL (75-99)
[2020-02-20 12:28] LABS: Calcium 6.9 mg/dL (8.4-10.2); Potassium 4.9 mmol/L (3.5-5.1)
--- NOTE | 2020-02-20 17:06 | PN ---
PROGRESS NOTE Patient is seen for followup for acute kidney injury on top of chronic kidney disease. Patient has a history of hemodialysis-dependent acute kidney injury and he was on hemodialysis for about a month, came off of dialysis about 2 months ago. He was admitted to the hospital with sepsis and had developed significant encephalopathy and CODE STATUS was changed to hospice care. However, over the next few days patient's mentation has improved and his CODE STATUS was changed back to FULL CODE. During this time patient's blood pressure had been on the lower side and his serum creatinine started to increase. It has been staying at about 5 mg/dL for the last 3-4 days. The patient has an indwelling Josue catheter. He is currently being diuresed for volume overload and has had good urine output. There has not been an indication to start dialysis currently. Mentation continues to improve on a daily basis. PHYSICAL EXAMINATION: On examination today, blood pressure was 109/75, heart rate 61 per minute. Patient is afebrile. EXAMINATION OF THE HEART: S1 and S2. EXAMINATION OF LUNGS: Decreased breath sounds at bases. ABDOMEN: Soft, non-tender. Examination of lower extremities shows edema 1+ bilaterally. Both legs are currently wrapped. LABS: Labs show sodium 140, potassium 4.9, chloride 109. CO2 is 18, BUN 104, serum creatinine 5.01. ASSESSMENT: 1. Acute kidney injury, mostly acute tubular necrosis, nonoliguric, currently with indwelling Josue catheter. Good urine output. Renal function stable. No indication to start dialysis yet. 2. Non-gap metabolic acidosis secondary to renal failure. Add low-dose oral sodium bicarb. 3. Volume overload, maintained on IV Lasix 40 mg q.12 hours. Volume status has improved. 4. Hypertension. Blood pressure is currently low. I will hold off on the Coreg. 5. Recent sepsis with left calcaneal osteomyelitis. Currently maintained on antibiotics. 6. Encephalopathy, now continuing to improve. 7. Cardiomyopathy, ejection fraction 45% to 50% with moderately dilated left atrium and severe pulmonary hypertension. PLAN: Continue IV Lasix. Continue to assess on a daily basis for need for renal replacement therapy and encourage increased oral intake. Add oral sodium bicarb and repeat labs in a.m. MMODL / IJN: [id number] /
[2020-02-20 17:10] LABS: Glucose,Whole Blood 177 mg/dL (75-99)
[2020-02-20 19:47] LABS: Glucose,Whole Blood 146 mg/dL (75-99)
--- NOTE | 2020-02-20 21:05 | P.PN ---
Subjective This 49 years old male with multiple medical problems who was admitted on 02/01 for bilateral leg cellulitis and sepsis, patient history of wound and debridement of the heel and possible osteomyelitis per Bone scan. Patient hospital course was complicated by "stroke which was called on 02/08, patient had global aphasia with negative CT of the brain and CTA of the brain which were nondiagnostic. No MRI could be done because of his body habitus. Patient also found to have severe tricuspid regurgitation and severe pulmonary hypertension. Patient developed acute hypoxic respiratory failure and he was in the ICU treated with BiPAP. Increase intercranial pressure was suspected but the guardian did not approve lumbar puncture to be done, eventually patient was made DO NOT RESUSCITATE and guardian and family opted for no procedure, eventually patient was already accepted by [facility] hospice team , however the last 2 days patient started waking up and he was alert awake and oriented to time place and person, he was short of breath and complaining from pain in his left leg, after discussion with the family and the patient they wanted to revoke hospice care and they want patient to be treated therefore patient will be discharged from hospice care and will be admitted under medicine Currently patient is awake and alert to time, place and person, he no at least [facility] in [place] and it is January 2020, and he noted name of the president troponin Patient is short of breath and he has difficulty finishing his sentences, how ever he is on 2 L oxygen via nasal cannula with oxygen saturation in 90s. Chest x-ray showing bilateral pulmonary congestion and patient is provided with Lasix 40 mg twice daily. His antibiotics including cefepime and Flagyl resumed and infectious disease were consulted for further recommendation. His creatinine has trended up to 5.24, compared to 1.9 on 02/01, Neurological Surgeon team consulted. Also pulmonary team were consulted as they have evaluated him before. Consult has been placed for murray Gr as he is known to the service and has been evaluated by Dr. Mcgraw. Patient was on insulin at home, we'll start him on Levemir 5 units at bedtime plus insulin sliding scale Patient is with Josue catheter 02/18/2020 Patient was sitting in the chair today, he feels gradually improving. He is breathing quietly and he is saturating high 90s ambulatory oxygen via nasal cannula. He denies any specific complaint "chest pain or dyspnea on abdominal pain or nausea vomiting, he has some loose stool but C. diff was negative. He still have pain in his left lower leg secondary to cellulitis and also myelitis of the left heel. His creatinine still on the high side but this is stable, patient continue on antibiotics and IV Lasix 02/19/2020 Patient clinically looks the same as yesterday, his breathing quietly on 2 L oxygen via nasal cannula, he still have some dyspnea with difficulty to finish her sentences. However no tachypnea no chest pain, no orthopnea. No abdominal pain, he has some loose bowel movement however C. diff came back negative. CBC is stable. She still has a Josue catheter, however his fluid status looks like not improving as supposed to be, patient may need hemodialysis as per nephrology recommendation. In the meantime continue with Lasix, continue with antibiotics and ID team on the case 02/20/2020 Patient clinically looks the same, he reports less pain in his left heel Nephrology and infectious disease on the case continue with antibiotics, continue with Lasix with possible need for renal replacement therapy Objective - Vital Signs Vital signs: Vital Signs Temp 97.7 F 02/20/20 05:00 Pulse 59 L 02/20/20 05:00 Resp 16 02/20/20 05:00 BP 109/70 02/20/20 05:00 Pulse Ox 96 02/20/20 05:00 Intake & Output 02/19/20 02/20/20 02/20/20 18:59 06:59 18:59 Intake Total 530 930 Output Total 750 500 Balance -220 430 Weight 149 kg Intake: Intake, IV Titration 50 50 Amount Cefepime 1 gm In Sodium 50 50 Chloride 0.9% 50 ml @ 12. 5 mls/hr IVPB Q12HR [facility] Rx#:[id number] Oral 480 880 Output: Urine 750 500 Uretheral (Josue) 500 Other: Voiding Method Indwelling Catheter Indwelling Catheter Indwelling Catheter - Exam GENERAL: The patient is alert and oriented x3, not in any acute distress. Morbidly obese HEENT: Pupils are round and equally reacting to light. EOMI. No scleral icterus. No conjunctival pallor. Normocephalic, atraumatic. No pharyngeal erythema. No thyromegaly. CARDIOVASCULAR: S1 and S2 present. No murmurs, rubs, or gallops. PULMONARY: Chest is clear to auscultation, no wheezing or crackles. ABDOMEN: Soft, nontender, nondistended, normoactive bowel sounds. No palpable organomegaly. MUSCULOSKELETAL: No joint swelling or deformity. -EXTREMITIES: No cyanosis, clubbing, or pedal edema. Bilateral heel wounds and especially with black eschar on the left heel, dressing is in place NEUROLOGICAL: Gross neurological examination did not reveal any focal deficits. SKIN: No rashes. no petechiae. - Labs CBC & Chem 7: 02/19/20 06:48 02/20/20 10:51 Labs: Abnormal Lab Results - Last 24 Hours (Table) 02/19/20 02/19/20 02/20/20 Range/Units 17:28 19:57 02:13 Chloride (98-107) mmol/L Carbon Dioxide (22-30) mmol/L BUN (9-20) mg/dL Creatinine (0.66-1.25) mg/dL Glucose (74-99) mg/dL POC Glucose (mg/dL) 156 H 173 H 165 H (75-99) mg/dL Calcium (8.4-10.2) mg/dL 02/20/20 02/20/20 02/20/20 Range/Units 07:18 10:51 11:21 Chloride 109 H (98-107) mmol/L Carbon Dioxide 18 L (22-30) mmol/L BUN 104 H* (9-20) mg/dL Creatinine 5.01 H (0.66-1.25) mg/dL Glucose 118 H (74-99) mg/dL POC Glucose (mg/dL) 130 H 147 H (75-99) mg/dL Calcium 6.9 L (8.4-10.2) mg/dL Assessment and Plan Assessment: Bilateral lower extremity cellulitis and osteomyelitis of the left calcaneal bone, with Left heel diabetic ulcer, status post debridement Acute hypoxic respiratory failure, secondary to pulmonary congestion as well as sepsis from his bilateral leg cellulitis and osteomyelitis, and severe pulmonary hypertension Acute kidney injury Altered mental status, secondary to metabolic encephalopathy with suspected stroke, also significantly improved patient is awake and oriented Anion gap metabolic acidosis Hypothyroidism Acute on chronic Systolic CHF , ejection fraction 45-50% Severe Pulmonary HTN History of Blood in the stool Type 2 diabetes mellitus poorly controlled with hyperglycemia Peripheral neuropathy CKD stage III Obstructive sleep apnea Possible obesity hypoventilation syndrome History of MRSA of the right shoulder Degenerative joint disease Morbid obesity with BMI 47.1 Plan: This is a pleasant 49 years old male who presents with left heel diabetic ulcer and osteomyelitis, occasionally and pulmonary congestion. Continue with antibiotics per ID team. Continue with IV Lasix. Nephrology and pulmonary consult. Continue with oxygen as needed, BiPAP as needed. Patient may need hemodialysis if no improvement. Labs and medication were reviewed.. Continue same treatment. Continue with symptomatic treatment. Resume home medication. Monitor lytes and vitals. DVT and GI prophylaxis. Further recommendations of the clinical course of the patient DVT prophylaxis: Subcutaneous heparin GI Prophylaxis: Pepcid Prognosis is guarded
[2020-02-20] MEDS: SODIUM BICARBONATE TAB 650 MG TAB PO SCH (21:06)
[2020-02-20] MEDS: INSULIN DETEMIR (LEVEMIR) 100 UNIT/ML SYR SQ SCH (21:06)
--- NOTE | 2020-02-20 22:22 | PN ---
PROGRESS NOTE DATE OF SERVICE: 02/20/2020 REASON FOR FOLLOWUP: Left heel osteomyelitis. INTERVAL HISTORY: Patient is currently afebrile. Patient is breathing comfortably. Denies having any chest pain or cough. No nausea, vomiting. No abdominal pain. No diarrhea. PHYSICAL EXAMINATION: Blood pressure 152/73 with a pulse of 61. Temperature is 97.7. He is 98% on 2 L nasal cannula. General description: The patient is a middle-aged male lying in bed in no distress. Respiratory system: Unlabored breathing, clear to auscultation anteriorly. Heart S1, S2. Regular rate and rhythm. Left knee is currently dressed up. No obvious drainage on the dressing. LABS: BUN of 104, creatinine 5.01. DIAGNOSTIC IMPRESSION AND PLAN: Patient with left heel osteomyelitis. Previous culture positive for on nystatin and IV. The patient is currently covered with cefepime and Flagyl to continue. Local care with Medihoney and moist dressing. Keep the area off the pressure. We will reevaluate tomorrow at the time of dressing changes. MMODL / IJN: [id number] /
[2020-02-21] MEDS: ACETAMINOPHEN TAB 325 MG TAB PO PRN (01:30)
[2020-02-21 02:21] LABS: Glucose,Whole Blood 186 mg/dL (75-99)
[2020-02-21] MEDS: LEVOTHYROXINE 75 MCG TAB PO SCH (06:04)
[2020-02-21 07:18] LABS: Glucose,Whole Blood 163 mg/dL (75-99)
[2020-02-21] MEDS: INSULIN ASPART (NovoLOG) 100 UNIT/ML VIAL SQ SCH ×4 (08:04→21:31)
[2020-02-21] MEDS: CEFEPIME 1 GM in SODIUM CHLORIDE 0.9% 50 ML IVPB SCH ×2 (08:04→21:30)
[2020-02-21] MEDS: ASPIRIN 81 MG PO SCH (08:04)
[2020-02-21] MEDS: metroNIDAZOLE 500 MG TAB PO SCH ×2 (08:04→17:36)
[2020-02-21] MEDS: SODIUM BICARBONATE TAB 650 MG TAB PO SCH ×3 (08:05→21:31)
[2020-02-21] MEDS: MULTIVITAMINS, THERA 1 EACH TAB PO SCH (08:05)
[2020-02-21] MEDS: FAMOTIDINE 20 MG TAB PO SCH (08:05)
[2020-02-21] MEDS: FUROSEMIDE 10 MG/ML 4 ML VIAL IV SCH ×2 (08:05→21:30)
[2020-02-21] MEDS: HEPARIN SODIUM,PORCINE 5,000 UNIT/ML 1 ML VIAL SQ SCH ×2 (08:05→21:31)
[2020-02-21] MEDS: carvediloL 12.5 MG TAB PO SCH ×2 (08:18→15:57)
[2020-02-21 11:37] LABS: Glucose,Whole Blood 210 mg/dL (75-99)
--- NOTE | 2020-02-21 14:10 | P.PN ---
Subjective Progress Note Date: 02/21/20 Principal diagnosis: This is a 49-year-old obese male seen in consultation because of acute kidney injury and chronic kidney disease. Previously was on dialysis for a month and supposedly came off of dialysis to undergo. He is in with sepsis and osteomyelitis of his left heel. Currently he is sleepy but arousable cc he is not very hungry and does not like the food he was given. Spoke to the nursing staff and he is stable and is about the same. Patient denies any fever chills cough shortness of breath nausea vomiting diarrhea abdominal pain Objective - Vital Signs Vital signs: Vital Signs Temp 97.3 F L 02/21/20 13:00 Pulse 59 L 02/21/20 13:00 Resp 17 02/21/20 13:00 BP 118/75 02/21/20 13:00 Pulse Ox 96 02/21/20 13:00 Intake & Output 02/20/20 02/21/20 02/21/20 18:59 06:59 18:59 Intake Total 150 Output Total 350 Balance -200 Weight 149 kg Intake: Oral 150 Output: Urine 350 Uretheral (Josue) 250 Other: Voiding Method Indwelling Catheter Indwelling Catheter On examination is morbidly obese HEENT exam no JVP neck is supple no facial asymmetry Lungs are difficult to examine but normal no crackles in her fair air entry Heart sounds are unremarkable for any murmur rub gallop Abdomen is obese nontender Extremity exam shows mild edema both of his legs are wrapped in Nils wraps Extremity examination otherwise is unremarkable Neurologically awake alert oriented but looks depressed - Labs CBC & Chem 7: 02/19/20 06:48 02/20/20 10:51 Labs: Abnormal Lab Results - Last 24 Hours (Table) 02/20/20 02/20/20 02/21/20 Range/Units 17:09 19:47 02:19 POC Glucose (mg/dL) 177 H 146 H 186 H (75-99) mg/dL 02/21/20 02/21/20 Range/Units 07:16 11:28 POC Glucose (mg/dL) 163 H 210 H (75-99) mg/dL Assessment and Plan Assessment: Impression 1. Combination of acute kidney injury from sepsis and chronic kidney disease. Stable creatinine. No clear-cut evidence of uremia except for appetite is poor and he looks depressed 2. Chronic kidney disease stage V. 3. Ordered obesity 4. Osteomyelitis left leg 5. Cardiomyopathy ejection fraction of 45-50% and severe pulmonary hypertension. 6. Anemia hemoglobin is 8.1 7. Mild degree of non-gap acidosis with bicarb is 18, on sodium bicarb 650 twice a day 8. Iron sufficient, saturation is 34% dated 02/09/2020 Recommendation 1. Increase in bicarb to 650 4 times a day 2 No changes will continue to follow him he may need to be on dialysis soon but is showing some reluctance to accept that
[2020-02-21 17:27] LABS: Glucose,Whole Blood 149 mg/dL (75-99)
--- NOTE | 2020-02-21 19:13 | P.PN ---
Subjective This 49 years old male with multiple medical problems who was admitted on 02/01 for bilateral leg cellulitis and sepsis, patient history of wound and debridement of the heel and possible osteomyelitis per Bone scan. Patient hospital course was complicated by "stroke which was called on 02/08, patient had global aphasia with negative CT of the brain and CTA of the brain which were nondiagnostic. No MRI could be done because of his body habitus. Patient also found to have severe tricuspid regurgitation and severe pulmonary hypertension. Patient developed acute hypoxic respiratory failure and he was in the ICU treated with BiPAP. Increase intercranial pressure was suspected but the guardian did not approve lumbar puncture to be done, eventually patient was made DO NOT RESUSCITATE and guardian and family opted for no procedure, eventually patient was already accepted by [facility] hospice team , however the last 2 days patient started waking up and he was alert awake and oriented to time place and person, he was short of breath and complaining from pain in his left leg, after discussion with the family and the patient they wanted to revoke hospice care and they want patient to be treated therefore patient will be discharged from hospice care and will be admitted under medicine Currently patient is awake and alert to time, place and person, he no at least [facility] in [place] and it is January 2020, and he noted name of the president troponin Patient is short of breath and he has difficulty finishing his sentences, how ever he is on 2 L oxygen via nasal cannula with oxygen saturation in 90s. Chest x-ray showing bilateral pulmonary congestion and patient is provided with Lasix 40 mg twice daily. His antibiotics including cefepime and Flagyl resumed and infectious disease were consulted for further recommendation. His creatinine has trended up to 5.24, compared to 1.9 on 02/01, Report Manager team consulted. Also pulmonary team were consulted as they have evaluated him before. Consult has been placed for murray Gr as he is known to the service and has been evaluated by Dr. Mcgraw. Patient was on insulin at home, we'll start him on Levemir 5 units at bedtime plus insulin sliding scale Patient is with Josue catheter 02/18/2020 Patient was sitting in the chair today, he feels gradually improving. He is breathing quietly and he is saturating high 90s ambulatory oxygen via nasal cannula. He denies any specific complaint "chest pain or dyspnea on abdominal pain or nausea vomiting, he has some loose stool but C. diff was negative. He still have pain in his left lower leg secondary to cellulitis and also myelitis of the left heel. His creatinine still on the high side but this is stable, patient continue on antibiotics and IV Lasix 02/19/2020 Patient clinically looks the same as yesterday, his breathing quietly on 2 L oxygen via nasal cannula, he still have some dyspnea with difficulty to finish her sentences. However no tachypnea no chest pain, no orthopnea. No abdominal pain, he has some loose bowel movement however C. diff came back negative. CBC is stable. She still has a Josue catheter, however his fluid status looks like not improving as supposed to be, patient may need hemodialysis as per nephrology recommendation. In the meantime continue with Lasix, continue with antibiotics and ID team on the case 02/20/2020 Patient clinically looks the same, he reports less pain in his left heel Nephrology and infectious disease on the case continue with antibiotics, continue with Lasix with possible need for renal replacement therapy 02/21/2020 Patient is with known new symptom, is still breathing quietly with some dyspnea and have difficulty in finishing his sentences probably related to his previous stroke. Exam is not changed and he is saturating 96% on 2 L oxygen a few nasal cannula. He is still on cefepime and I Flagyl for his diabetic left foot infection. Pathology on the case and no order for start hemodialysis so far, it looks like the patient is also reluctant to do that Objective - Vital Signs Vital signs: Vital Signs Temp 97.3 F L 02/21/20 13:00 Pulse 59 L 02/21/20 13:00 Resp 17 02/21/20 16:00 BP 118/75 02/21/20 13:00 Pulse Ox 96 02/21/20 13:00 Intake & Output 02/21/20 02/21/20 02/22/20 06:59 18:59 06:59 Intake Total 150 Output Total 350 Balance -200 Weight 150.706 kg Intake: Oral 150 Output: Urine 350 Uretheral (Josue) 250 Other: Voiding Method Indwelling Catheter # Bowel Movements 3 - Exam GENERAL: The patient is alert and oriented x3, not in any acute distress. Morbidly obese HEENT: Pupils are round and equally reacting to light. EOMI. No scleral icterus. No conjunctival pallor. Normocephalic, atraumatic. No pharyngeal erythema. No thyromegaly. CARDIOVASCULAR: S1 and S2 present. No murmurs, rubs, or gallops. PULMONARY: Chest is clear to auscultation, no wheezing or crackles. ABDOMEN: Soft, nontender, nondistended, normoactive bowel sounds. No palpable organomegaly. MUSCULOSKELETAL: No joint swelling or deformity. -EXTREMITIES: No cyanosis, clubbing, or pedal edema. Bilateral heel wounds and especially with black eschar on the left heel, dressing is in place NEUROLOGICAL: Gross neurological examination did not reveal any focal deficits. SKIN: No rashes. no petechiae. - Labs CBC & Chem 7: 02/19/20 06:48 02/20/20 10:51 Labs: Abnormal Lab Results - Last 24 Hours (Table) 02/20/20 02/21/20 02/21/20 Range/Units 19:47 02:19 07:16 POC Glucose (mg/dL) 146 H 186 H 163 H (75-99) mg/dL 02/21/20 02/21/20 Range/Units 11:28 17:17 POC Glucose (mg/dL) 210 H 149 H (75-99) mg/dL Assessment and Plan Assessment: Bilateral lower extremity cellulitis and osteomyelitis of the left calcaneal bone, with Left heel diabetic ulcer, status post debridement Acute hypoxic respiratory failure, secondary to pulmonary congestion as well as sepsis from his bilateral leg cellulitis and osteomyelitis, and severe pulmonary hypertension Acute kidney injury Altered mental status, secondary to metabolic encephalopathy with suspected stroke, also significantly improved patient is awake and oriented Anion gap metabolic acidosis Hypothyroidism Acute on chronic Systolic CHF , ejection fraction 45-50% Severe Pulmonary HTN History of Blood in the stool Type 2 diabetes mellitus poorly controlled with hyperglycemia Peripheral neuropathy CKD stage III Obstructive sleep apnea Possible obesity hypoventilation syndrome History of MRSA of the right shoulder Degenerative joint disease Morbid obesity with BMI 47.1 Plan: This is a pleasant 49 years old male who presents with left heel diabetic ulcer and osteomyelitis, occasionally and pulmonary congestion. Continue with antibiotics per ID team. Continue with IV Lasix. Nephrology and pulmonary consult. Continue with oxygen as needed, BiPAP as needed. Patient may need hemodialysis if no improvement. Labs and medication were reviewed.. Continue same treatment. Continue with symptomatic treatment. Resume home medication. Monitor lytes and vitals. DVT and GI prophylaxis. Further recommendations of the clinical course of the patient DVT prophylaxis: Subcutaneous heparin GI Prophylaxis: Pepcid Prognosis is guarded
[2020-02-21 19:56] LABS: Glucose,Whole Blood 169 mg/dL (75-99)
[2020-02-21] MEDS: INSULIN DETEMIR (LEVEMIR) 100 UNIT/ML SYR SQ SCH (21:31)
[2020-02-22] MEDS: metroNIDAZOLE 500 MG TAB PO SCH ×4 (00:04→23:20)
--- NOTE | 2020-02-22 00:53 | PN ---
PROGRESS NOTE DATE OF SERVICE: 02/21/2020 REASON FOR FOLLOWUP: Left heel osteomyelitis. INTERVAL HISTORY: Patient is currently afebrile. Patient is breathing comfortably. Patient denies having any chest pain or cough. No nausea. No abdominal pain or any worsening pain to the left knee. PHYSICAL EXAMINATION: Blood pressure is 96/59 with a pulse of 61, temperature 97.3. He is 91% on 2 L nasal cannula. General description is a middle-aged male lying in bed in no distress. Respiratory system: Unlabored breathing. Clear to auscultation anteriorly. Heart S1, S2. Regular rate and rhythm. The left knee is currently significant amount of slough tissue. Bone is palpable. No foul smelling drainage. LABS: No new labs have been obtained today. DIAGNOSTIC IMPRESSION AND PLAN: Patient with left heel osteomyelitis in this patient who did have previous debridement and removal of a maggot. Still has significant slough tissue and may benefit from further debridement. This will be discussed further with vascular surgeon. Local care to continue with Medihoney. Continue with cefepime and Flagyl. Continue supportive care. MMODL / IJN: [id number] /
[2020-02-22 02:53] LABS: Glucose,Whole Blood 161 mg/dL (75-99)
[2020-02-22] MEDS: LEVOTHYROXINE 75 MCG TAB PO SCH (06:16)
[2020-02-22 07:17] LABS: Glucose,Whole Blood 182 mg/dL (75-99)
[2020-02-22] MEDS: INSULIN ASPART (NovoLOG) 100 UNIT/ML VIAL SQ SCH ×4 (08:18→21:11)
[2020-02-22] MEDS: CEFEPIME 1 GM in SODIUM CHLORIDE 0.9% 50 ML IVPB SCH ×2 (08:18→21:13)
[2020-02-22] MEDS: carvediloL 12.5 MG TAB PO SCH ×2 (08:19→17:39)
[2020-02-22] MEDS: MULTIVITAMINS, THERA 1 EACH TAB PO SCH (08:19)
[2020-02-22] MEDS: FUROSEMIDE 10 MG/ML 4 ML VIAL IV SCH (08:19)
[2020-02-22] MEDS: SODIUM BICARBONATE TAB 650 MG TAB PO SCH ×4 (08:19→21:11)
[2020-02-22] MEDS: HEPARIN SODIUM,PORCINE 5,000 UNIT/ML 1 ML VIAL SQ SCH ×2 (08:19→21:13)
[2020-02-22] MEDS: ASPIRIN 81 MG PO SCH (08:19)
[2020-02-22] MEDS: FAMOTIDINE 20 MG TAB PO SCH (08:19)
--- NOTE | 2020-02-22 09:10 | P.PN ---
Subjective This 49 years old male with multiple medical problems who was admitted on 02/01 for bilateral leg cellulitis and sepsis, patient history of wound and debridement of the heel and possible osteomyelitis per Bone scan. Patient hospital course was complicated by "stroke which was called on 02/08, patient had global aphasia with negative CT of the brain and CTA of the brain which were nondiagnostic. No MRI could be done because of his body habitus. Patient also found to have severe tricuspid regurgitation and severe pulmonary hypertension. Patient developed acute hypoxic respiratory failure and he was in the ICU treated with BiPAP. Increase intercranial pressure was suspected but the guardian did not approve lumbar puncture to be done, eventually patient was made DO NOT RESUSCITATE and guardian and family opted for no procedure, eventually patient was already accepted by [facility] hospice team , however the last 2 days patient started waking up and he was alert awake and oriented to time place and person, he was short of breath and complaining from pain in his left leg, after discussion with the family and the patient they wanted to revoke hospice care and they want patient to be treated therefore patient will be discharged from hospice care and will be admitted under medicine Currently patient is awake and alert to time, place and person, he no at least [facility] in [place] and it is January 2020, and he noted name of the president troponin Patient is short of breath and he has difficulty finishing his sentences, how ever he is on 2 L oxygen via nasal cannula with oxygen saturation in 90s. Chest x-ray showing bilateral pulmonary congestion and patient is provided with Lasix 40 mg twice daily. His antibiotics including cefepime and Flagyl resumed and infectious disease were consulted for further recommendation. His creatinine has trended up to 5.24, compared to 1.9 on 02/01, [facility] [employer] team consulted. Also pulmonary team were consulted as they have evaluated him before. Consult has been placed for murray Gr as he is known to the service and has been evaluated by Dr. Mcgraw. Patient was on insulin at home, we'll start him on Levemir 5 units at bedtime plus insulin sliding scale Patient is with Josue catheter 02/18/2020 Patient was sitting in the chair today, he feels gradually improving. He is breathing quietly and he is saturating high 90s ambulatory oxygen via nasal cannula. He denies any specific complaint "chest pain or dyspnea on abdominal pain or nausea vomiting, he has some loose stool but C. diff was negative. He still have pain in his left lower leg secondary to cellulitis and also myelitis of the left heel. His creatinine still on the high side but this is stable, patient continue on antibiotics and IV Lasix 02/19/2020 Patient clinically looks the same as yesterday, his breathing quietly on 2 L oxygen via nasal cannula, he still have some dyspnea with difficulty to finish her sentences. However no tachypnea no chest pain, no orthopnea. No abdominal pain, he has some loose bowel movement however C. diff came back negative. CBC is stable. She still has a Josue catheter, however his fluid status looks like not improving as supposed to be, patient may need hemodialysis as per nephrology recommendation. In the meantime continue with Lasix, continue with antibiotics and ID team on the case 02/20/2020 Patient clinically looks the same, he reports less pain in his left heel Nephrology and infectious disease on the case continue with antibiotics, continue with Lasix with possible need for renal replacement therapy 02/21/2020 Patient is with known new symptom, is still breathing quietly with some dyspnea and have difficulty in finishing his sentences probably related to his previous stroke. Exam is not changed and he is saturating 96% on 2 L oxygen a few nasal cannula. He is still on cefepime and I Flagyl for his diabetic left foot infection. Pathology on the case and no order for start hemodialysis so far, it looks like the patient is also reluctant to do that 02/22/2020 Patient is awake, mentally and change. He has low appetite and at times he has some swallowing difficulty. With some cough and sometimes however no worsening in his dyspnea and no chest pain, distal have this slurred or interrupted speech. No abdominal pain, he had some loose bowel movement. His left leg looks improvement and its and dressing currently We'll check his labs today and order chest x-ray for tomorrow. Also we'll ask for swallow evaluation Objective - Vital Signs Vital signs: Vital Signs Temp 94.7 F L 02/22/20 06:00 Pulse 66 02/22/20 04:44 Resp 20 02/22/20 04:44 BP 101/57 02/22/20 04:44 Pulse Ox 95 02/22/20 04:44 Intake & Output 02/21/20 02/22/20 02/22/20 18:59 06:59 18:59 Other: Voiding Method Indwelling Catheter # Bowel Movements 3 1 - Exam GENERAL: The patient is alert and oriented x3, not in any acute distress. Morbidly obese HEENT: Pupils are round and equally reacting to light. EOMI. No scleral icterus. No conjunctival pallor. Normocephalic, atraumatic. No pharyngeal erythema. No thyromegaly. CARDIOVASCULAR: S1 and S2 present. No murmurs, rubs, or gallops. PULMONARY: Chest is clear to auscultation, no wheezing or crackles. ABDOMEN: Soft, nontender, nondistended, normoactive bowel sounds. No palpable organomegaly. MUSCULOSKELETAL: No joint swelling or deformity. -EXTREMITIES: No cyanosis, clubbing, or pedal edema. Bilateral heel wounds and especially with black eschar on the left heel, dressing is in place NEUROLOGICAL: Gross neurological examination did not reveal any focal deficits. SKIN: No rashes. no petechiae. - Labs CBC & Chem 7: 02/19/20 06:48 02/20/20 10:51 Labs: Abnormal Lab Results - Last 24 Hours (Table) 02/21/20 02/21/20 02/21/20 Range/Units 11:28 17:17 19:55 POC Glucose (mg/dL) 210 H 149 H 169 H (75-99) mg/dL 02/22/20 02/22/20 Range/Units 02:51 07:09 POC Glucose (mg/dL) 161 H 182 H (75-99) mg/dL Assessment and Plan Assessment: Bilateral lower extremity cellulitis and osteomyelitis of the left calcaneal b one, with Left heel diabetic ulcer, status post debridement Acute hypoxic respiratory failure, secondary to pulmonary congestion as well as sepsis from his bilateral leg cellulitis and osteomyelitis, and severe pulmonary hypertension Acute kidney injury Altered mental status, secondary to metabolic encephalopathy with suspected stroke, also significantly improved patient is awake and oriented Anion gap metabolic acidosis Hypothyroidism Acute on chronic Systolic CHF , ejection fraction 45-50% Severe Pulmonary HTN History of Blood in the stool Type 2 diabetes mellitus poorly controlled with hyperglycemia Peripheral neuropathy CKD stage III Obstructive sleep apnea Possible obesity hypoventilation syndrome History of MRSA of the right shoulder Degenerative joint disease Morbid obesity with BMI 47.1 Plan: This is a pleasant 49 years old male who presents with left heel diabetic ulcer and osteomyelitis, occasionally and pulmonary congestion. Continue with antibio tics per ID team. Continue with IV Lasix. Nephrology and pulmonary consult. Continue with oxygen as needed, BiPAP as needed. Patient may need hemodialysis if no improvement. Labs and medication were reviewed.. Continue same treatment. Continue with symptomatic treatment. Resume home medication. Monitor lytes and vitals. DVT and GI prophylaxis. Further recommendations of the clinical course of the patient DVT prophylaxis: Subcutaneous heparin GI Prophylaxis: Pepcid Prognosis is guarded
[2020-02-22 10:40] LABS: Calcium 6.9 mg/dL (8.4-10.2); Potassium 5.2 mmol/L (3.5-5.1)
[2020-02-22 10:49] LABS: Anisocytosis Slight; HCT 29.6 % (39.0-53.0); HGB 8.4 gm/dL (13.0-17.5); Hypochromasia Marked; MCH 30.6 pg (25.0-35.0); MCHC 28.2 g/dL (31.0-37.0); MCV 108.5 fL (80.0-100.0); Macrocytosis Marked; Mean Platelet Volume 10.9; Platelet Count 137 k/uL (150-450); Poikilocytosis Slight; RBC 2.73 m/uL (4.30-5.90); RDW 19.1 % (11.5-15.5)
[2020-02-22 11:43] LABS: Band Neutrophils % 1 %; Eosinophils # (M) 0.09 k/uL (0-0.7); Monocytes # (M) 0.26 k/uL (0-1.0); Myelocytes # (M) 0.09 k/uL (0); Myelocytes % 1 %; Neutrophils % (M) 89 %; Nucleated Red Blood Cells 1 /100 WBC (0-0); Total Cells Counted 200; WBC 8.6 k/uL (3.8-10.6)
[2020-02-22 12:07] LABS: Glucose,Whole Blood 177 mg/dL (75-99)
[2020-02-22] MEDS: ACETAMINOPHEN TAB 325 MG TAB PO PRN ×2 (12:36→21:11)
--- NOTE | 2020-02-22 14:44 | P.PN ---
Subjective Progress Note Date: 02/22/20 Principal diagnosis: This is a 49-year-old obese male seen in consultation because of acute kidney injury and chronic kidney disease. He received vancomycin and levels were supratherapeutic and creatinine started to go up from 1.08 on 01/26/2020 to 1.2 and kept going up since then. Vancomycin has been stopped. Further he had CTA on 02/11/2024 carotid artery. Previously supposedly he was was on dialysis for a month and supposedly came off of dialysis He is in with sepsis and osteomyelitis of his left heel. Currently he is sleepy but arousable , he looks depressed but denies any such problems. Says his appetite is slightly better than yesterday Spoke to the nursing staff and he is stable and is about the same. Patient denies any fever chills cough shortness of breath nausea vomiting diarrhea abdominal pain Is known with diabetes mellitus, obstructive sleep apnea and morbid obesity. Objective - Vital Signs Vital signs: Vital Signs Temp 97.2 F L 02/22/20 12:12 Pulse 60 02/22/20 14:08 Resp 20 02/22/20 14:08 BP 135/72 02/22/20 12:12 Pulse Ox 98 02/22/20 12:12 Intake & Output 02/21/20 02/22/20 02/22/20 18:59 06:59 18:59 Intake Total 770 Output Total 100 Balance 670 Intake: Intake, IV Titration 50 Amount Cefepime 1 gm In Sodium 50 Chloride 0.9% 50 ml @ 12. 5 mls/hr IVPB Q12HR [facility] Rx#:[id number] Oral 720 Output: Urine 100 Other: Voiding Method Indwelling Catheter Indwelling Catheter # Voids 1 # Bowel Movements 3 1 1 On examination is morbidly obese HEENT exam no JVP neck is supple no facial asymmetry Lungs are difficult to examine but normal no crackles in her fair air entry Heart sounds are unremarkable for any murmur rub gallop Abdomen is obese nontender Extremity exam shows mod edema both of his legs are wrapped in Nils wraps Extremity examination otherwise is unremarkable Neurologically awake alert oriented but looks depressed - Labs CBC & Chem 7: 02/22/20 10:01 02/22/20 10:01 Labs: Abnormal Lab Results - Last 24 Hours (Table) 02/21/20 02/21/20 02/22/20 Range/Units 17:17 19:55 02:51 RBC (4.30-5.90) m/uL Hgb (13.0-17.5) gm/dL Hct (39.0-53.0) % MCV (80.0-100.0) fL MCHC (31.0-37.0) g/dL RDW (11.5-15.5) % Plt Count (150-450) k/uL Lymphocytes # (Manual) (1.0-4.8) k/uL Myelocytes # (Manual) (0) k/uL Nucleated RBCs (0-0) /100 WBC Macrocytosis Potassium (3.5-5.1) mmol/L Chloride (98-107) mmol/L Carbon Dioxide (22-30) mmol/L BUN (9-20) mg/dL Creatinine (0.66-1.25) mg/dL Glucose (74-99) mg/dL POC Glucose (mg/dL) 149 H 169 H 161 H (75-99) mg/dL Calcium (8.4-10.2) mg/dL 02/22/20 02/22/20 02/22/20 Range/Units 07:09 10:01 10:01 RBC 2.73 L (4.30-5.90) m/uL Hgb 8.4 L (13.0-17.5) gm/dL Hct 29.6 L (39.0-53.0) % MCV 108.5 H (80.0-100.0) fL MCHC 28.2 L (31.0-37.0) g/dL RDW 19.1 H (11.5-15.5) % Plt Count 137 L (150-450) k/uL Lymphocytes # (Manual) 0.60 L (1.0-4.8) k/uL Myelocytes # (Manual) 0.09 H (0) k/uL Nucleated RBCs 1 H (0-0) /100 WBC Macrocytosis Marked A Potassium 5.2 H (3.5-5.1) mmol/L Chloride 109 H (98-107) mmol/L Carbon Dioxide 19 L (22-30) mmol/L BUN 103 H* (9-20) mg/dL Creatinine 5.64 H (0.66-1.25) mg/dL Glucose 166 H (74-99) mg/dL POC Glucose (mg/dL) 182 H (75-99) mg/dL Calcium 6.9 L (8.4-10.2) mg/dL 02/22/20 Range/Units 11:55 RBC (4.30-5.90) m/uL Hgb (13.0-17.5) gm/dL Hct (39.0-53.0) % MCV (80.0-100.0) fL MCHC (31.0-37.0) g/dL RDW (11.5-15.5) % Plt Count (150-450) k/uL Lymphocytes # (Manual) (1.0-4.8) k/uL Myelocytes # (Manual) (0) k/uL Nucleated RBCs (0-0) /100 WBC Macrocytosis Potassium (3.5-5.1) mmol/L Chloride (98-107) mmol/L Carbon Dioxide (22-30) mmol/L BUN (9-20) mg/dL Creatinine (0.66-1.25) mg/dL Glucose (74-99) mg/dL POC Glucose (mg/dL) 177 H (75-99) mg/dL Calcium (8.4-10.2) mg/dL Assessment and Plan Assessment: Impression 1. Combination of acute kidney injury from vancomycin, with high trough levels as of 01/26/2020, contrast on 02/11/[address] of the carotids, sepsis and chronic kidney disease. Slowly worsening creatinine, creatinine was 1.08 on 01/26/2020, 1.2 on 01/26 and has been going up consistently since then to the current level of 5.64 as of this morning. Urine output is 350 mL. 2. Chronic kidney disease stage I-II, GFR was 80 MLS per minute dated 01/26/2020. 3. Ordered obesity 4. Osteomyelitis left leg 5. Cardiomyopathy ejection fraction of 45-50% and severe pulmonary hypertension. 6. Anemia hemoglobin is 8.1.> 8.4 7. Mild degree of non-gap acidosis with bicarb is 18, on sodium bicarb 650 twice a day, covered up to 19 8. Iron sufficient, saturation is 34% dated 02/09/2020 Recommendation 1. Continue bicarb 650 mg 4 times a day. 2. Patient was informed that he may need to being started on dialysis in the next 24-48 hours. 3. Increase Lasix to 80 twice a day and see if his edema improves
[2020-02-22 16:38] LABS: Glucose,Whole Blood 213 mg/dL (75-99)
[2020-02-22 20:07] LABS: Glucose,Whole Blood 216 mg/dL (75-99)
[2020-02-22] MEDS: FUROSEMIDE 10 MG/ML 10 ML VIAL IV SCH (21:11)
[2020-02-22] MEDS: INSULIN DETEMIR (LEVEMIR) 100 UNIT/ML SYR SQ SCH (21:11)
[2020-02-23] MEDS ORDERED: Magnesium Replacement Protocol 1 EACH MISC MISCELLANE PRN (00:36)
[2020-02-23] MEDS ORDERED: Potassium Replacement Protocol 1 EACH MISC MISCELLANE PRN (00:36)
--- NOTE | 2020-02-23 01:10 | PN ---
PROGRESS NOTE DATE OF SERVICE: 02/22/2020 REASON FOR FOLLOWUP: Left heel osteomyelitis. INTERVAL HISTORY: The patient is currently afebrile. The patient is breathing comfortably. The patient denies having any chest pain or shortness of breath or cough. No nausea, vomiting. No abdominal pain or diarrhea. PHYSICAL EXAMINATION: Blood pressure 176/74 with a pulse of 58, temperature 97.4. He is 98% on room air. General description is a middle-aged male lying in bed in no distress. RESPIRATORY SYSTEM: Unlabored breathing, clear to auscultation anteriorly. HEART: S1, S2. Regular rate and rhythm. ABDOMEN: Soft, no tenderness. LABS: Hemoglobin 8.4, white count 8.6, BUN of 103, creatinine 5.64. DIAGNOSTIC IMPRESSION AND PLAN: Patient with left heel osteomyelitis, status post debridement on last admission. Culture positive for Morganella, Strep and anaerobes. Patient is covered cefepime and Flagyl. Local care with [facility]. Keep the area dry and off the pressure. Continue supportive care. MMODL / IJN: [id number] /
[2020-02-23 03:30] LABS: Glucose,Whole Blood 148 mg/dL (75-99)
[2020-02-23] MEDS: LEVOTHYROXINE 75 MCG TAB PO SCH (05:44)
[2020-02-23 06:08] LABS: Calcium 6.8 mg/dL (8.4-10.2); Potassium 5.2 mmol/L (3.5-5.1)
[2020-02-23 07:03] LABS: Glucose,Whole Blood 134 mg/dL (75-99)
[2020-02-23] MEDS: HEPARIN SODIUM,PORCINE 5,000 UNIT/ML 1 ML VIAL SQ SCH ×2 (07:18→21:58)
[2020-02-23] MEDS: SODIUM BICARBONATE TAB 650 MG TAB PO SCH ×4 (07:18→21:59)
[2020-02-23] MEDS: FAMOTIDINE 20 MG TAB PO SCH (07:18)
[2020-02-23] MEDS: ASPIRIN 81 MG PO SCH (07:18)
[2020-02-23] MEDS: CEFEPIME 1 GM in SODIUM CHLORIDE 0.9% 50 ML IVPB SCH ×2 (07:18→21:31)
[2020-02-23] MEDS: INSULIN ASPART (NovoLOG) 100 UNIT/ML VIAL SQ SCH ×4 (07:18→21:42)
[2020-02-23] MEDS: carvediloL 12.5 MG TAB PO SCH ×2 (07:19→21:27)
[2020-02-23] MEDS: metroNIDAZOLE 500 MG TAB PO SCH ×2 (07:19→21:26)
[2020-02-23] MEDS: FUROSEMIDE 10 MG/ML 10 ML VIAL IV SCH ×2 (07:19→21:58)
[2020-02-23] MEDS: MULTIVITAMINS, THERA 1 EACH TAB PO SCH (07:19)
--- NOTE | 2020-02-23 07:47 | XR ---
EXAMINATION TYPE: XR chest 1V DATE OF EXAM: 02/23/2020 COMPARISON: 02/16/2020 HISTORY: 49-year-old male follow-up shortness of breath TECHNIQUE: Single frontal view of the chest is obtained. FINDINGS: Heart remains moderately enlarged. Diffuse interstitial and perihilar opacities. More conf luent opacity at the right base and retrocardiac region. IMPRESSION: 1. Continued cardiomegaly and CHF with interstitial pulmonary edema. 2. Continued more confluent edema at the right base and retrocardiac region. Suspect small effusions.
--- NOTE | 2020-02-23 10:20 | P.PN ---
Subjective Patient is seen in follow-up for acute kidney injury. Renal function worsening. Creatinine 5.99 today. Noted to be quite edematous. He's been working with physical therapy. Remains weak. Vital signs are stable. General: The patient appeared well nourished and normally developed. HEENT: Head exam is unremarkable. Neck is without jugular venous distension. LUNGS: Breath sounds decreased. HEART: Rate and Rhythm are regular. ABDOMEN: Soft, nontender. Obese. EXTREMITITES: 2+ edema. Severe scrotal edema noted. Objective - Vital Signs Vital signs: Vital Signs Temp 97.8 F 02/23/20 05:00 Pulse 53 L 02/23/20 05:00 Resp 16 02/23/20 05:00 BP 123/78 02/23/20 05:00 Pulse Ox 98 02/23/20 05:00 Intake & Output 02/22/20 02/23/20 02/23/20 18:59 06:59 18:59 Intake Total 770 590 240 Output Total 100 400 Balance 670 190 240 Weight 150.252 kg Intake: Intake, IV Titration 50 Amount Cefepime 1 gm In Sodium 50 Chloride 0.9% 50 ml @ 12. 5 mls/hr IVPB Q12HR [facility] Rx#:[id number] Oral 720 590 240 Output: Urine 100 400 Uretheral (Josue) 400 Other: Voiding Method Indwelling Catheter Indwelling Catheter # Voids 1 # Bowel Movements 1 1 - Labs CBC & Chem 7: 02/22/20 10:01 02/23/20 05:27 Labs: Abnormal Lab Results - Last 24 Hours (Table) 02/22/20 02/22/20 02/22/20 Range/Units 10:01 10:01 11:55 RBC 2.73 L (4.30-5.90) m/uL Hgb 8.4 L (13.0-17.5) gm/dL Hct 29.6 L (39.0-53.0) % MCV 108.5 H (80.0-100.0) fL MCHC 28.2 L (31.0-37.0) g/dL RDW 19.1 H (11.5-15.5) % Plt Count 137 L (150-450) k/uL Lymphocytes # (Manual) 0.60 L (1.0-4.8) k/uL Myelocytes # (Manual) 0.09 H (0) k/uL Nucleated RBCs 1 H (0-0) /100 WBC Macrocytosis Marked A Potassium 5.2 H (3.5-5.1) mmol/L Chloride 109 H (98-107) mmol/L Carbon Dioxide 19 L (22-30) mmol/L BUN 103 H* (9-20) mg/dL Creatinine 5.64 H (0.66-1.25) mg/dL Glucose 166 H (74-99) mg/dL POC Glucose (mg/dL) 177 H (75-99) mg/dL Calcium 6.9 L (8.4-10.2) mg/dL 02/22/20 02/22/20 02/23/20 Range/Units 16:34 20:05 03:28 RBC (4.30-5.90) m/uL Hgb (13.0-17.5) gm/dL Hct (39.0-53.0) % MCV (80.0-100.0) fL MCHC (31.0-37.0) g/dL RDW (11.5-15.5) % Plt Count (150-450) k/uL Lymphocytes # (Manual) (1.0-4.8) k/uL Myelocytes # (Manual) (0) k/uL Nucleated RBCs (0-0) /100 WBC Macrocytosis Potassium (3.5-5.1) mmol/L Chloride (98-107) mmol/L Carbon Dioxide (22-30) mmol/L BUN (9-20) mg/dL Creatinine (0.66-1.25) mg/dL Glucose (74-99) mg/dL POC Glucose (mg/dL) 213 H 216 H 148 H (75-99) mg/dL Calcium (8.4-10.2) mg/dL 02/23/20 02/23/20 Range/Units 05:27 06:57 RBC (4.30-5.90) m/uL Hgb (13.0-17.5) gm/dL Hct (39.0-53.0) % MCV (80.0-100.0) fL MCHC (31.0-37.0) g/dL RDW (11.5-15.5) % Plt Count (150-450) k/uL Lymphocytes # (Manual) (1.0-4.8) k/uL Myelocytes # (Manual) (0) k/uL Nucleated RBCs (0-0) /100 WBC Macrocytosis Potassium 5.2 H (3.5-5.1) mmol/L Chloride 110 H (98-107) mmol/L Carbon Dioxide 18 L (22-30) mmol/L BUN 110 H* (9-20) mg/dL Creatinine 5.99 H (0.66-1.25) mg/dL Glucose 111 H (74-99) mg/dL POC Glucose (mg/dL) 134 H (75-99) mg/dL Calcium 6.8 L (8.4-10.2) mg/dL Assessment and Plan Plan: Assessment: 1. Acute kidney injury secondary to ATN secondary to vancomycin toxicity as well as contrast-induced acute kidney injury. Creatinine 5.99 today. 2. Metabolic acidosis secondary to acute kidney injury. 3. Volume overload. 4. Acute on chronic systolic CHF with ejection fraction of 40-45% with severe pulmonary hypertension. 5. Left lower extremity osteomyelitis. Maintained on antibiotics. 6. Chronic kidney disease stage II with baseline creatinine 1-1.1. 7. Diabetes mellitus. Plan: Maintain IV Lasix. With worsening renal function and severe volume overload, start renal replacement therapy. Consults vascular surgery for permacath placement. Plan for first and if hemodialysis treatment today and second treatment tomorrow. Continue to monitor for renal recovery.
[2020-02-23 12:00] LABS: Glucose,Whole Blood 138 mg/dL (75-99)
--- NOTE | 2020-02-23 13:42 | P.PN ---
Subjective Progress Note Date: 02/23/20 Principal diagnosis: Hypoxic rest or a failure secondary to fluid overload This is a 49-year-old white male patient that we saw in consultation on 02/11/2020 last week for hypoxic respiratory failure related to sepsis, secondary to left calcaneal osteomyelitis, acute kidney injury, and patient was having neurological abnormalities that included global aphasia, and left upper e xtremity weakness, with a concern of meningoencephalitis, however LP was not performed because the patient's sister declined any aggressive medical treatment. CT of the brain did not show evidence of aneurysm or acute ischemia. Patient's was treated medically, his breathing was supported with BiPAP, he was receiving broad-spectrum antibiotics for osteomyelitis of the left calcaneus status post debridement. Patient codes status was DO NOT RESUSCITATE, per his next of kin, who is his sister, clinically patient was not improving, and she decided to place the patient in hospice comfort and initiate comfort care protocol. He was discharged into hospice care on 02/16/2020. Today we're asked to see the patient again on 02/17/2020. In the last 24 hours his mentation has significantly improved, is awake and alert, he remembered Dr. Brown from previously seen him in the pulmonary clinic on an outpatient basis where Dr. Brown treats him for history of COPD obstructive sleep apnea. Appears to be in no acute distress, resting comfortably in bed, we seen the patient on the general medical oncology floor. He is currently on 2 L of oxygen the pulse ox of 99%, hemodynamically stable, breathing is comfortable, nonlabored, he is afebrile. Today's labs have been reviewed, his white count is 5.0, hemoglobin is 8.0, sodium is 139, potassium is 4.7, chloride is 112, CO2 is 21, BUN of 97, creatinine is 5.24. His right leg and culture was positive for Diann, and left leg wound culture was Diann albicans. His blood culture from previous admission was negative. His antibiotics have been restarted with cefepime and Flagyl. Patient is edematous, and he has been started on IV Lasix at 40 mg every 12 hours. Appears stable right now, he is tolerating oral diet. The patient is seen today 02/18/2020 in follow-up on the oncology unit. He is awake and alert in no acute distress. He is maintaining good O2 saturations in the upper 90s on 2 L/m per nasal cannula. He is afebrile. White count 4.8. Hemoglobin 8.2. Platelets 102,000. Sodium 139. Potassium 4.7. Creatinine 5.13. He remains on IV diuretics. Cefepime. Flagyl. The patient is seen today 02/19/2020 in follow-up on the oncology unit. He is currently sitting up in a chair at the bedside. Awake and alert in no acute distress. Maintaining good O2 saturations in the 90s on 2 L/m per nasal cannula. He is afebrile. Hemodynamically stable. White count 4.9. Hemoglobin 8.1. Sodium 131. Potassium 4.7. Creatinine 5.18. Glucose 159. C. difficile screen negative. He remains on cefepime and Flagyl. Remains on IV diuretics. On 02/23/2020 patient was seen again at the request of the nursing staff on the regular medical surgical floor. The nursing staff was concerned about patient being hypothermic, and his temperature was only registering at 93.7F axillary, however on physical examination patient feels warm, including his lower extremities, he is sleepy however she is easily arousable to verbal stimuli, and he is able to provide simple answers. We'll obtain rectal temp, blood pressures 124/79, no worsening shortness of breath. He is on 3 L of oxygen his pulse ox is 95%, today's chest x-ray shows cardiomegaly, CHF with interstitial pulmonary edema, suspect small pleural effusions, patient is scheduled for hemodialysis catheter insertion today with Dr. Hernández, and hemodialysis will be initiated. Patient has generalized edema, including upper and lower extremities, Josue catheter is in place and there has been 500 mL of urine in the last 24 hours. No nausea vomiting or diarrhea. Today's labs have been reviewed, showing serum sodium of 140, potassium is 5.2, chloride is 110, CO2 is 18, BUN is 110, and creatinine is 5.9, nephrology is following, anxiety initiate the patient on hem odialysis for severe fluid volume overload the worsening renal function. Patient remains on cefepime for antibiotic coverage, and oral Flagyl. He is on Lasix 80 mg every 12 hours. Objective - Vital Signs Vital signs: Vital Signs Temp 94.3 F L 02/23/20 12:03 Pulse 56 L 02/23/20 12:03 Resp 15 02/23/20 12:03 BP 124/79 02/23/20 12:03 Pulse Ox 95 02/23/20 12:03 Intake & Output 02/22/20 02/23/20 02/23/20 18:59 06:59 18:59 Intake Total 770 590 240 Output Total 100 400 Balance 670 190 240 Weight 150.252 kg Intake: Intake, IV Titration 50 Amount Cefepime 1 gm In Sodium 50 Chloride 0.9% 50 ml @ 12. 5 mls/hr IVPB Q12HR [facility] Rx#:[id number] Oral 720 590 240 Output: Urine 100 400 Uretheral (Josue) 400 Other: Voiding Method Indwelling Catheter Indwelling Catheter # Voids 1 # Bowel Movements 1 1 - Exam GENERAL EXAM: Sleepy, but arousable to voice 49-year-old morbidly obese male patient, on 3 L of oxygen pulse ox of 95%, resting comfortable in bed, answering questions appropriately HEAD: Normocephalic/atraumatic. EYES: Normal reaction of pupils, left pupil measuring 5 mm, mildly reactive to light, right pupil is 2 mm in diameter reactive. Conjunctiva pink, sclera white. NOSE: Clear with pink turbinates. THROAT: No erythema or exudates. NECK: No masses, no JVD, no thyroid enlargement, no adenopathy. CHEST: No chest wall deformity. Symmetrical expansion. LUNGS: Equal air entry with crackles in the bilateral posterior bases. CVS: Regular rate and rhythm, normal S1 and S2, no gallops, no murmurs, no rubs ABDOMEN: Soft, nontender. No hepatosplenomegaly, normal bowel sounds, no guarding or rigidity. EXTREMITIES: No clubbing, significant edema involving upper and lower extremities, no cyanosis, 2+ pulses and upper and lower extremities. bilateral lower extremities covered with dressings MUSCULOSKELETAL: Muscle strength and tone normal. SPINE: No scoliosis or deformity SKIN: No rashes CENTRAL NERVOUS SYSTEM: Slightly sleepy, but easily arousable to voice, oriented 3, no facial asymmetry - Labs CBC & Chem 7: 02/22/20 10:01 02/23/20 05:27 Labs: Abnormal Lab Results - Last 24 Hours (Table) 02/22/20 02/22/20 02/23/20 Range/Units 16:34 20:05 03:28 Potassium (3.5-5.1) mmol/L Chloride (98-107) mmol/L Carbon Dioxide (22-30) mmol/L BUN (9-20) mg/dL Creatinine (0.66-1.25) mg/dL Glucose (74-99) mg/dL POC Glucose (mg/dL) 213 H 216 H 148 H (75-99) mg/dL Calcium (8.4-10.2) mg/dL 02/23/20 02/23/20 02/23/20 Range/Units 05:27 06:57 11:47 Potassium 5.2 H (3.5-5.1) mmol/L Chloride 110 H (98-107) mmol/L Carbon Dioxide 18 L (22-30) mmol/L BUN 110 H* (9-20) mg/dL Creatinine 5.99 H (0.66-1.25) mg/dL Glucose 111 H (74-99) mg/dL POC Glucose (mg/dL) 134 H 138 H (75-99) mg/dL Calcium 6.8 L (8.4-10.2) mg/dL Assessment and Plan Plan: Assessment: #1. Acute hypoxic respiratory failure, related to fluid volume overload, interstitial edema, he will be initiated on hemodialysis today #2. Hypothermia, not sure if this is accurate, we'll check a rectal temp, and physical exam reveals warm extremities, and patient is appropriate [place] to verbal questions, covered with broad-spectrum antibiotics #3. Worsening acute kidney injury, multifactorial limited to sepsis #4. Global aphasia and left upper extremity weakness, improved, and patient is verbally responding, and moving both upper extremities #5. Acute encephalopathy, due to sepsis, acute kidney injury, significantly improved #6. Acute non-anion gap metabolic acidosis, related to acute kidney injury #7. Left calcaneus osteomyelitis with sepsis on broad-spectrum antibiotics, status post recent surgical debridement #8. Hypothyroidism, started on levothyroxin #9. Severe pulmonary hypertension with severe tricuspid regurgitation, likely secondary to underlying obstructive sleep apnea and chronic hypoxic respiratory failure #10. recent hospitalization for bilateral leg cellulitis and heel ulcers, status post surgical debridement, patient had a PICC line placed and discharged home on IV antibiotics #11. Diabetes mellitus type 2 with diabeticneuropathy #12. Chronic congestive heart failure, with diastolic dysfunction #13. Previous history of MRSA infection #14. Chronic kidney disease stage III, previously on hemodialysis for short period of time #15. History of sleep apnea, unclear whether or not patient is compliant with CPAP #16. History o degenerative joint disease #17. Medical debility, gait dysfunction Plan: Continue with antibiotics, will obtain CBC, we'll obtain a lactic acid, repeat blood cultures, recheck rectal temperature. His chest x-ray has been reviewed, showing interstitial edema, small pleural effusions, and patient will be initiated on hemodialysis this afternoon. He is awake, he is answering qu estions appropriately, we asked him about his wishes about her medical care in case of his clinical deterioration and the patient was not sure at this point. We'll continue with supportive treatment, continue close monitoring. Repeat chest x-ray in the morning I performed a history & physical examination of the patient and discussed their management with my nurse practitioner, Mere Byrnes. I reviewed the nurse practitioner's note and agree with the documented findings and plan of care. L travis sounds are positive for diminished breath sounds. The findings and the impression was discussed with the patient. I attest to the documentation by the nurse practitioner. Time with Patient: Less than 30
--- NOTE | 2020-02-23 13:48 | P.GSCN ---
History of Present Illness History of present illness: 49-year-old white male, patient was seen by me last week he came with maggots in his left heel patient went for a wide debridement and also patient was cannulated C osteo-mellitus of t heel. Patient also had a dialysis catheter place a right IJ in the past when he was interested care unit patient was DO NOT RESUSCITATE when he was in the disc care unit now he is been admitted again with the creatinine of 5.99 I was consulted for placement of the dialysis catheter Patient has history of obesity, diabetes, history of 4 left heel wound for local wound care On examination patient was seen in his room patient is some short of breath neck is supple chest has crackles bilateral Abdomen is protuberant no peritoneal sign femorals are 1+ Plan is placement of the dialysis catheter risk and complication discussed Past Medical History Past Medical History: Heart Failure, CVA/TIA, Diabetes Mellitus, Dialysis, Renal Disease, Sleep Apnea/CPAP/BIPAP Additional Past Medical History / Comment(s): Patient had one month of hem odialysis in the past, pt. states that in August of 2019 he had a stroke and was admitted to [facility] during that time, Obesity, sepsis History of Any Multi-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:: 2004 MDRO Source:: Rt shoulder Past Surgical History: Orthopedic Surgery Additional Past Surgical History / Comment(s): carpal tunnel in right wrist, MRS A infection with drain in right shoulder 2004, Debridement of left foot ulcer 01/30/2020 Past Anesthesia/Blood Transfusion Reactions: No Reported Reaction Past Psychological History: No Psychological Hx Reported Smoking Status: Never smoker Past Alcohol Use History: None Reported Past Drug Use History: None Reported - Past Family History Father Family Medical History: Cancer Sister(s) Family Medical History: Cancer Additional Family Medical History / Comment(s): cervical cancer Brother(s) Family Medical History: Liver Disease Additional Family Medical History / Comment(s): from liver cirrh osis. another brother has throat cancer Medications and Allergies Home Medications Medication Instructions Recorded Confirmed Type Aspirin [[place] Aspirin EC] 81 mg PO DAILY 01/24/20 02/16/20 History Multivitamins, Thera [Multivitamin 1 tab PO DAILY 01/24/20 02/16/20 History (formulary)] Famotidine [Pepcid] 20 mg PO Q12HR 30 Days #60 tab 07/31/20 08/17/20 Rx metroNIDAZOLE [Flagyl] 500 mg PO Q8HR #90 tab 01/30/20 02/16/20 Rx Acetaminophen [Tylenol] 650 mg PO Q8H PRN 02/02/20 02/16/20 History Carvedilol [Coreg] 12.5 mg PO BID 02/13/20 02/16/20 History Cefepime [Maxipime] 2 gm IVPB Q12HR 02/13/20 02/16/20 History Furosemide [Lasix] 20 mg PO DAILY 02/13/20 02/16/20 History Insulin Regular, Human [humulin R 110 unit SQ BID 02/13/20 02/16/20 History U-500 Kwikpen] Levothyroxine Sodium [Synthroid] 150 mcg PO DAILY 02/13/20 02/16/20 History Lisinopril [Zestril] 10 mg PO DAILY 02/13/20 02/16/20 History Spironolactone [Aldactone] 25 mg PO DAILY 02/13/20 02/16/20 History Allergies Allergy/AdvReac Type Severity Reaction Status Date / Time Penicillins Allergy Swelling Verified 02/02/20 12:35 Sulfa (Sulfonamide Allergy Unknown Verified 02/02/20 12:35 Antibiotics) Surgical - Exam Vital Signs Temp Pulse Resp BP Pulse Ox 97.6 F 75 20 126/88 98 02/16/20 20:13 02/16/20 20:13 02/16/20 20:13 02/16/20 20:13 02/16/20 20:13 Results - Labs 02/22/20 10:01 02/23/20 05:27 Abnormal Lab Results - Last 24 Hours (Table) 02/22/20 02/22/20 02/23/20 Range/Units 16:34 20:05 03:28 Potassium (3.5-5.1) mmol/L Chloride (98-107) mmol/L Carbon Dioxide (22-30) mmol/L BUN (9-20) mg/dL Creatinine (0.66-1.25) mg/dL Glucose (74-99) mg/dL POC Glucose (mg/dL) 213 H 216 H 148 H (75-99) mg/dL Calcium (8.4-10.2) mg/dL 02/23/20 02/23/20 02/23/20 Range/Units 05:27 06:57 11:47 Potassium 5.2 H (3.5-5.1) mmol/L Chloride 110 H (98-107) mmol/L Carbon Dioxide 18 L (22-30) mmol/L BUN 110 H* (9-20) mg/dL Creatinine 5.99 H (0.66-1.25) mg/dL Glucose 111 H (74-99) mg/dL POC Glucose (mg/dL) 134 H 138 H (75-99) mg/dL Calcium 6.8 L (8.4-10.2) mg/dL Diabetes panel 02/23/20 Range/Units 05:27 Sodium 140 (137-145) mmol/L Potassium 5.2 H (3.5-5.1) mmol/L Chloride 110 H (98-107) mmol/L Carbon Dioxide 18 L (22-30) mmol/L BUN 110 H* (9-20) mg/dL Creatinine 5.99 H (0.66-1.25) mg/dL Glucose 111 H (74-99) mg/dL Calcium 6.8 L (8.4-10.2) mg/dL Calcium panel 02/23/20 Range/Units 05:27 Calcium 6.8 L (8.4-10.2) mg/dL Pituitary panel 02/23/20 Range/Units 05:27 Sodium 140 (137-145) mmol/L Potassium 5.2 H (3.5-5.1) mmol/L Chloride 110 H (98-107) mmol/L Carbon Dioxide 18 L (22-30) mmol/L BUN 110 H* (9-20) mg/dL Creatinine 5.99 H (0.66-1.25) mg/dL Glucose 111 H (74-99) mg/dL Calcium 6.8 L (8.4-10.2) mg/dL Adrenal panel 02/23/20 Range/Units 05:27 Sodium 140 (137-145) mmol/L Potassium 5.2 H (3.5-5.1) mmol/L Chloride 110 H (98-107) mmol/L Carbon Dioxide 18 L (22-30) mmol/L BUN 110 H* (9-20) mg/dL Creatinine 5.99 H (0.66-1.25) mg/dL Glucose 111 H (74-99) mg/dL Calcium 6.8 L (8.4-10.2) mg/dL
[2020-02-23] MEDS ORDERED: LIDOCAINE 1% INJ 10MG/ML (20 ML MDV) SQ ONE ×3 (16:49→18:15)
[2020-02-23] MEDS ORDERED: LIDOCAINE 1% INJ 10MG/ML (20 ML MDV) ONE (18:15)
[2020-02-23] MEDS ORDERED: IOPAMIDOL-370 50ML BTL INJ ONE ×2 (18:44→18:57)
[2020-02-23 19:24] LABS: Glucose,Whole Blood 118 mg/dL (75-99)
[2020-02-23] MEDS: INSULIN DETEMIR (LEVEMIR) 100 UNIT/ML SYR SQ SCH (21:31)
--- NOTE | 2020-02-23 22:29 | PN ---
PROGRESS NOTE DATE OF SERVICE: 02/23/2020 REASON FOR FOLLOWUP: Left heel osteomyelitis. INTERVAL HISTORY: The patient is currently afebrile. He did have slight hypothermia earlier. The patient denies having any chest pain or cough. No nausea, no vomiting. No abdominal pain or any worsening pain to the left heel. PHYSICAL EXAMINATION: Blood pressure 105/72 with a pulse of 84, temperature 96. He is 99% on 3 L nasal cannula. General description is a middle-aged male lying in bed in no distress. RESPIRATORY SYSTEM: Unlabored breathing. Clear to auscultation anteriorly. HEART: S1, S2. Regular rate and rhythm. ABDOMEN: Soft. No tenderness. Left heel is currently dressed up. No obvious drainage on the dressing. LABS: BUN of 110, creatinine 5.99. DIAGNOSTIC IMPRESSION AND PLAN: Patient with left heel osteomyelitis. Previous debridement. Cultures with Morganella, strep and anaerobes. Plan is to continue with cefepime and Flagyl. Local care per Surgery. Continue supportive care. MMODL / IJN: [id number] /
--- NOTE | 2020-02-23 23:19 | P.PN ---
Subjective This 49 years old male with multiple medical problems who was admitted on 02/01 for bilateral leg cellulitis and sepsis, patient history of wound and debridement of the heel and possible osteomyelitis per Bone scan. Patient hospital course was complicated by "stroke which was called on 02/08, patient had global aphasia with negative CT of the brain and CTA of the brain which were nondiagnostic. No MRI could be done because of his body habitus. Patient also found to have severe tricuspid regurgitation and severe pulmonary hypertension. Patient developed acute hypoxic respiratory failure and he was in the ICU treated with BiPAP. Increase intercranial pressure was suspected but the guardian did not approve lumbar puncture to be done, eventually patient was made DO NOT RESUSCITATE and guardian and family opted for no procedure, eventually patient was already accepted by [facility] hospice team , however the last 2 days patient started waking up and he was alert awake and oriented to time place and person, he was short of breath and complaining from pain in his left leg, after discussion with the family and the patient they wanted to revoke hospice care and they want patient to be treated therefore patient will be discharged from hospice care and will be admitted under medicine Currently patient is awake and alert to time, place and person, he no at least [facility] in [place] and it is January 2020, and he noted name of the president troponin Patient is short of breath and he has difficulty finishing his sentences, how ever he is on 2 L oxygen via nasal cannula with oxygen saturation in 90s. Chest x-ray showing bilateral pulmonary congestion and patient is provided with Lasix 40 mg twice daily. His antibiotics including cefepime and Flagyl resumed and infectious disease were consulted for further recommendation. His creatinine has trended up to 5.24, compared to 1.9 on 02/01, Trust Officer team consulted. Also pulmonary team were consulted as they have evaluated him before. Consult has been placed for murray Gr as he is known to the service and has been evaluated by Dr. Mcgraw. Patient was on insulin at home, we'll start him on Levemir 5 units at bedtime plus insulin sliding scale Patient is with Josue catheter 02/18/2020 Patient was sitting in the chair today, he feels gradually improving. He is breathing quietly and he is saturating high 90s ambulatory oxygen via nasal cannula. He denies any specific complaint "chest pain or dyspnea on abdominal pain or nausea vomiting, he has some loose stool but C. diff was negative. He still have pain in his left lower leg secondary to cellulitis and also myelitis of the left heel. His creatinine still on the high side but this is stable, patient continue on antibiotics and IV Lasix 02/19/2020 Patient clinically looks the same as yesterday, his breathing quietly on 2 L oxygen via nasal cannula, he still have some dyspnea with difficulty to finish her sentences. However no tachypnea no chest pain, no orthopnea. No abdominal pain, he has some loose bowel movement however C. diff came back negative. CBC is stable. She still has a Josue catheter, however his fluid status looks like not improving as supposed to be, patient may need hemodialysis as per nephrology recommendation. In the meantime continue with Lasix, continue with antibiotics and ID team on the case 02/20/2020 Patient clinically looks the same, he reports less pain in his left heel Nephrology and infectious disease on the case continue with antibiotics, continue with Lasix with possible need for renal replacement therapy 02/21/2020 Patient is with known new symptom, is still breathing quietly with some dyspnea and have difficulty in finishing his sentences probably related to his previous stroke. Exam is not changed and he is saturating 96% on 2 L oxygen a few nasal cannula. He is still on cefepime and I Flagyl for his diabetic left foot infection. Pathology on the case and no order for start hemodialysis so far, it looks like the patient is also reluctant to do that 02/22/2020 Patient is awake, mentally and change. He has low appetite and at times he has some swallowing difficulty. With some cough and sometimes however no worsening in his dyspnea and no chest pain, distal have this slurred or interrupted speech. No abdominal pain, he had some loose bowel movement. His left leg looks improvement and its and dressing currently We'll check his labs today and order chest x-ray for tomorrow. Also we'll ask for swallow evaluation 02/23/2020 Patient today is more lethargic, with no new weakness or numbness or slurred speech, most likely his lethargy from a his renal disease on the top of his infection, patient will need to undergo dialysis. Dialysis catheter placed by vascular surgery. Patient is going for first hemodialysis today. On the second dialysis tomorrow. Nephrology on the case. Objective - Vital Signs Vital signs: Vital Signs Temp 94.5 F L 02/23/20 16:29 Pulse 56 L 02/23/20 12:03 Resp 15 02/23/20 12:03 BP 124/79 02/23/20 12:03 Pulse Ox 95 02/23/20 12:03 Intake & Output 02/22/20 02/23/20 02/23/20 18:59 06:59 18:59 Intake Total 770 590 290 Output Total 100 400 150 Balance 670 190 140 Weight 150.252 kg Intake: Intake, IV Titration 50 50 Amount Cefepime 1 gm In Sodium 50 50 Chloride 0.9% 50 ml @ 12. 5 mls/hr IVPB Q12HR [facility] Rx#:[id number] Oral 720 590 240 Output: Urine 100 400 150 Uretheral (Josue) 400 Other: Voiding Method Indwelling Catheter Indwelling Catheter # Voids 1 # Bowel Movements 1 1 2 - Exam GENERAL: The patient is alert and oriented x3, not in any acute distress. Morbidly obese HEENT: Pupils are round and equally reacting to light. EOMI. No scleral icterus. No conjunctival pallor. Normocephalic, atraumatic. No pharyngeal erythema. No thyromegaly. CARDIOVASCULAR: S1 and S2 present. No murmurs, rubs, or gallops. PULMONARY: Chest is clear to auscultation, no wheezing or crackles. ABDOMEN: Soft, nontender, nondistended, normoactive bowel sounds. No palpable organomegaly. MUSCULOSKELETAL: No joint swelling or deformity. -EXTREMITIES: No cyanosis, clubbing, or pedal edema. Bilateral heel wounds and especially with black eschar on the left heel, dressing is in place NEUROLOGICAL: Gross neurological examination did not reveal any focal deficits. SKIN: No rashes. no petechiae. - Labs CBC & Chem 7: 02/22/20 10:01 02/23/20 05:27 Labs: Abnormal Lab Results - Last 24 Hours (Table) 02/22/20 02/23/20 02/23/20 Range/Units 20:05 03:28 05:27 Potassium 5.2 H (3.5-5.1) mmol/L Chloride 110 H (98-107) mmol/L Carbon Dioxide 18 L (22-30) mmol/L BUN 110 H* (9-20) mg/dL Creatinine 5.99 H (0.66-1.25) mg/dL Glucose 111 H (74-99) mg/dL POC Glucose (mg/dL) 216 H 148 H (75-99) mg/dL Calcium 6.8 L (8.4-10.2) mg/dL 02/23/20 02/23/20 Range/Units 06:57 11:47 Potassium (3.5-5.1) mmol/L Chloride (98-107) mmol/L Carbon Dioxide (22-30) mmol/L BUN (9-20) mg/dL Creatinine (0.66-1.25) mg/dL Glucose (74-99) mg/dL POC Glucose (mg/dL) 134 H 138 H (75-99) mg/dL Calcium (8.4-10.2) mg/dL Assessment and Plan Assessment: Bilateral lower extremity cellulitis and osteomyelitis of the left calcaneal bone, with Left heel diabetic ulcer, status post debridement Acute hypoxic respiratory failure, secondary to pulmonary congestion as well as sepsis from his bilateral leg cellulitis and osteomyelitis, and severe pulmonary hypertension Acute kidney injury Altered mental status, secondary to metabolic encephalopathy with suspected stroke, also significantly improved patient is awake and oriented Anion gap metabolic acidosis Hypothyroidism Acute on chronic Systolic CHF , ejection fraction 45-50% Severe Pulmonary HTN History of Blood in the stool Type 2 diabetes mellitus poorly controlled with hyperglycemia Peripheral neuropathy CKD stage III Obstructive sleep apnea Possible obesity hypoventilation syndrome History of MRSA of the right shoulder Degenerative joint disease Morbid obesity with BMI 47.1 Plan: This is a pleasant 49 years old male who presents with left heel diabetic ulcer and osteomyelitis, occasionally and pulmonary congestion. Continue with antibiotics per ID team. Continue with IV Lasix. Nephrology and pulmonary consult. Continue with oxygen as needed, Patient is going for hemodialysis Labs and medication were reviewed.. Continue same treatment. Continue with symptomatic treatment. Resume home medication. Monitor lytes and vitals. DVT and GI prophylaxis. Further recommendations of the clinical course of the patient DVT prophylaxis: Subcutaneous heparin GI Prophylaxis: Pepcid Prognosis is guarded
[2020-02-24] MEDS: metroNIDAZOLE 500 MG TAB PO SCH ×4 (00:51→23:34)
[2020-02-24 00:59] LABS: Glucose,Whole Blood 102 mg/dL (75-99)
[2020-02-24 02:15] LABS: Glucose,Whole Blood 103 mg/dL (75-99)
[2020-02-24] MEDS: LEVOTHYROXINE 75 MCG TAB PO SCH (05:55)
[2020-02-24 07:10] LABS: Glucose,Whole Blood 100 mg/dL (75-99)
[2020-02-24] MEDS: INSULIN ASPART (NovoLOG) 100 UNIT/ML VIAL SQ SCH ×4 (07:15→20:20)
[2020-02-24 07:53] LABS: Calcium 6.8 mg/dL (8.4-10.2); Magnesium 1.9 mg/dL (1.6-2.3); Potassium 4.9 mmol/L (3.5-5.1)
--- NOTE | 2020-02-24 07:58 | XR ---
EXAMINATION TYPE: XR chest 1V portable DATE OF EXAM: 02/24/2020 HISTORY: Shortness of breath. COMPARISON: 02/23/2020 TECHNIQUE: Single view of the chest is submitted. FINDINGS: Demonstrated are scattered senescent parenchymal change. There is improving pulmonary venous congestion and perihilar infiltrates with mild residual remaining . The heart is stable. Hilar and mediastinal structures are within normal limits. Degenerative changes are seen of the dorsal spine. IMPRESSION: 1. There is improving pulmonary venous congestion and perihilar infiltrates with mild residual heri jessica
[2020-02-24] MEDS: MULTIVITAMINS, THERA 1 EACH TAB PO SCH (08:04)
[2020-02-24] MEDS: SODIUM BICARBONATE TAB 650 MG TAB PO SCH ×4 (08:04→23:34)
[2020-02-24] MEDS: FUROSEMIDE 10 MG/ML 10 ML VIAL IV SCH ×2 (08:05→19:59)
[2020-02-24] MEDS: HEPARIN SODIUM,PORCINE 5,000 UNIT/ML 1 ML VIAL SQ SCH ×2 (08:05→19:59)
[2020-02-24] MEDS: FAMOTIDINE 20 MG TAB PO SCH (08:05)
[2020-02-24] MEDS: ASPIRIN 81 MG PO SCH (08:05)
[2020-02-24] MEDS: carvediloL 12.5 MG TAB PO SCH ×2 (08:06→16:25)
[2020-02-24] MEDS: CEFEPIME 1 GM in SODIUM CHLORIDE 0.9% 50 ML IVPB SCH ×2 (09:31→19:59)
--- NOTE | 2020-02-24 10:28 | P.PN ---
Subjective Patient is seen in follow-up for acute kidney injury. Due to worsening GFR and severe volume overload, he was started on renal replacement therapy on February 22. Tolerated 2 L ultrafiltration yesterday. No active complaints at this time. Patient doesn't verbalize much. Vital signs are stable. General: The patient appeared well nourished and normally developed. HEENT: Head exam is unremarkable. Neck is without jugular venous distension. LUNGS: Breath sounds decreased. HEART: Rate and Rhythm are regular. ABDOMEN: Soft, nontender. Obese. EXTREMITITES: 2+ edema. Severe scrotal edema noted. Objective - Vital Signs Vital signs: Vital Signs Temp 94 F L 02/24/20 05:00 Pulse 55 L 02/24/20 05:00 Resp 16 02/24/20 05:00 BP 127/72 02/24/20 05:00 Pulse Ox 100 02/24/20 05:00 Intake & Output 02/23/20 02/24/20 02/24/20 18:59 06:59 18:59 Intake Total 290 0 Output Total 150 2150 Balance 140 -2150 Intake: Intake, IV Titration 50 Amount Cefepime 1 gm In Sodium 50 Chloride 0.9% 50 ml @ 12. 5 mls/hr IVPB Q12HR [facility] Rx#:[id number] Oral 240 0 Output: Urine 150 150 Hemodialysis 2000 Other: Voiding Method Indwelling Catheter Indwelling Catheter # Voids 0 # Bowel Movements 2 0 - Labs CBC & Chem 7: 02/22/20 10:01 02/24/20 06:58 Labs: Abnormal Lab Results - Last 24 Hours (Table) 02/23/20 02/23/20 02/24/20 Range/Units 11:47 19:22 00:56 Chloride (98-107) mmol/L Carbon Dioxide (22-30) mmol/L BUN (9-20) mg/dL Creatinine (0.66-1.25) mg/dL POC Glucose (mg/dL) 138 H 118 H 102 H (75-99) mg/dL Calcium (8.4-10.2) mg/dL 02/24/20 02/24/20 02/24/20 Range/Units 02:11 06:58 07:00 Chloride 108 H (98-107) mmol/L Carbon Dioxide 17 L (22-30) mmol/L BUN 90 H (9-20) mg/dL Creatinine 5.36 H (0.66-1.25) mg/dL POC Glucose (mg/dL) 103 H 100 H (75-99) mg/dL Calcium 6.8 L (8.4-10.2) mg/dL Assessment and Plan Plan: Assessment: 1. Acute kidney injury secondary to ATN secondary to vancomycin toxicity as well as contrast-induced acute kidney injury. Creatinine peaked at 5.99 this admission. Started on hemodialysis on February 22 for severe volume overload. 2. Metabolic acidosis secondary to acute kidney injury maintained on oral sodium bicarbonate. Expect further improvement postdialysis. 3. Volume overload. 4. Acute on chronic systolic CHF with ejection fraction of 40-45% with severe pulmonary hypertension. 5. Left lower extremity osteomyelitis. Maintained on antibiotics. 6. Chronic kidney disease stage II with baseline creatinine 1-1.1. 7. Diabetes mellitus. Plan: Hemodialysis today and again tomorrow. Maintain IV Lasix. Continue to monitor for renal recovery.
--- NOTE | 2020-02-24 10:58 | P.PN ---
Subjective Progress Note Date: 02/24/20 Principal diagnosis: Hypoxic rest or a failure secondary to fluid overload This is a 49-year-old white male patient that we saw in consultation on 02/11/2020 last week for hypoxic respiratory failure related to sepsis, secondary to left calcaneal osteomyelitis, acute kidney injury, and patient was having neurological abnormalities that included global aphasia, and left upper e xtremity weakness, with a concern of meningoencephalitis, however LP was not performed because the patient's sister declined any aggressive medical treatment. CT of the brain did not show evidence of aneurysm or acute ischemia. Patient's was treated medically, his breathing was supported with BiPAP, he was receiving broad-spectrum antibiotics for osteomyelitis of the left calcaneus status post debridement. Patient codes status was DO NOT RESUSCITATE, per his next of kin, who is his sister, clinically patient was not improving, and she decided to place the patient in hospice comfort and initiate comfort care protocol. He was discharged into hospice care on 02/16/2020. Today we're asked to see the patient again on 02/17/2020. In the last 24 hours his mentation has significantly improved, is awake and alert, he remembered Dr. Brown from previously seen him in the pulmonary clinic on an outpatient basis where Dr. Brown treats him for history of COPD obstructive sleep apnea. Appears to be in no acute distress, resting comfortably in bed, we seen the patient on the general medical oncology floor. He is currently on 2 L of oxygen the pulse ox of 99%, hemodynamically stable, breathing is comfortable, nonlabored, he is afebrile. Today's labs have been reviewed, his white count is 5.0, hemoglobin is 8.0, sodium is 139, potassium is 4.7, chloride is 112, CO2 is 21, BUN of 97, creatinine is 5.24. His right leg and culture was positive for Diann, and left leg wound culture was Diann albicans. His blood culture from previous admission was negative. His antibiotics have been restarted with cefepime and Flagyl. Patient is edematous, and he has been started on IV Lasix at 40 mg every 12 hours. Appears stable right now, he is tolerating oral diet. The patient is seen today 02/18/2020 in follow-up on the oncology unit. He is awake and alert in no acute distress. He is maintaining good O2 saturations in the upper 90s on 2 L/m per nasal cannula. He is afebrile. White count 4.8. Hemoglobin 8.2. Platelets 102,000. Sodium 139. Potassium 4.7. Creatinine 5.13. He remains on IV diuretics. Cefepime. Flagyl. The patient is seen today 02/19/2020 in follow-up on the oncology unit. He is currently sitting up in a chair at the bedside. Awake and alert in no acute distress. Maintaining good O2 saturations in the 90s on 2 L/m per nasal cannula. He is afebrile. Hemodynamically stable. White count 4.9. Hemoglobin 8.1. Sodium 131. Potassium 4.7. Creatinine 5.18. Glucose 159. C. difficile screen negative. He remains on cefepime and Flagyl. Remains on IV diuretics. On 02/23/2020 patient was seen again at the request of the nursing staff on the regular medical surgical floor. The nursing staff was concerned about patient being hypothermic, and his temperature was only registering at 93.7F axillary, however on physical examination patient feels warm, including his lower extremities, he is sleepy however she is easily arousable to verbal stimuli, and he is able to provide simple answers. We'll obtain rectal temp, blood pressures 124/79, no worsening shortness of breath. He is on 3 L of oxygen his pulse ox is 95%, today's chest x-ray shows cardiomegaly, CHF with interstitial pulmonary edema, suspect small pleural effusions, patient is scheduled for hemodialysis catheter insertion today with Dr. Hernández, and hemodialysis will be initiated. Patient has generalized edema, including upper and lower extremities, Josue catheter is in place and there has been 500 mL of urine in the last 24 hours. No nausea vomiting or diarrhea. Today's labs have been reviewed, showing serum sodium of 140, potassium is 5.2, chloride is 110, CO2 is 18, BUN is 110, and creatinine is 5.9, nephrology is following, anxiety initiate the patient on hem odialysis for severe fluid volume overload the worsening renal function. Patient remains on cefepime for antibiotic coverage, and oral Flagyl. He is on Lasix 80 mg every 12 hours. On 02/24/2020 patient seen in follow-up on general medical surgical floor. Yesterday he had left groin hemodialysis placed, hemodialysis was started and a 2 L of fluid was removed, patient remains on IV Lasix at 80 mg every 12 hours. And he is in -2010 mL over the last 24 hours. Significantly fluid overloaded, a nd upper and lower extremities, abdomen. Mentation seems to be better, patient is awake, he is answering simple questions, he denies any shortness of breath he is on 4 L of oxygen a pulse ox of 100%. Blood pressure is stable 127/72, temperature has improved, with the 96 axillary last night, and this morning oral temperature is 90.4, however this probably inaccurate reading, as the patient is a mouth breather, and physical exam reveals dry and warm skin. Yesterday lactic acid was drawn and sent back normal at 0.8, blood cultures were sent. Lung sounds are clear, diminished at the bases, abdomen is nontender, obese, edematous, no nausea or vomiting. Lower extremities are wrapped, local w ound care is being done per ID service recommendations. Today's labs have been reviewed showing sodium of 140, potassium is 4.9, chloride is 108, CO2 is 17, B1 is 90 and creatinine is 5.36. Objective - Vital Signs Vital signs: Vital Signs Temp 94 F L 02/24/20 05:00 Pulse 55 L 02/24/20 05:00 Resp 16 02/24/20 05:00 BP 127/72 02/24/20 05:00 Pulse Ox 100 02/24/20 05:00 Intake & Output 02/23/20 02/24/20 02/24/20 18:59 06:59 18:59 Intake Total 290 0 Output Total 150 2150 Balance 140 -2150 Intake: Intake, IV Titration 50 Amount Cefepime 1 gm In Sodium 50 Chloride 0.9% 50 ml @ 12. 5 mls/hr IVPB Q12HR [facility] Rx#:[id number] Oral 240 0 Output: Urine 150 150 Hemodialysis 2000 Other: Voiding Method Indwelling Catheter Indwelling Catheter # Voids 0 # Bowel Movements 2 0 - Exam GENERAL EXAM: Awake, oriented to person 49-year-old morbidly obese male patient, on 4 L of oxygen pulse ox of 100%, resting comfortable in bed, answering questions appropriately HEAD: Normocephalic/atraumatic. EYES: Normal reaction of pupils, left pupil measuring 5 mm, mildly reactive to light, right pupil is 2 mm in diameter reactive. Conjunctiva pink, sclera white. NOSE: Clear with pink turbinates. THROAT: No erythema or exudates. NECK: No masses, no JVD, no thyroid enlargement, no adenopathy. CHEST: No chest wall deformity. Symmetrical expansion. LUNGS: Equal air entry with crackles in the bilateral posterior bases. CVS: Regular rate and rhythm, normal S1 and S2, no gallops, no murmurs, no rubs ABDOMEN: Soft, nontender. No hepatosplenomegaly, normal bowel sounds, no guarding or rigidity. EXTREMITIES: No clubbing, significant edema involving upper and lower extremities, no cyanosis, 2+ pulses and upper and lower extremities. bilateral lower extremities covered with dressings MUSCULOSKELETAL: Muscle strength and tone normal. SPINE: No scoliosis or deformity SKIN: No rashes CENTRAL NERVOUS SYSTEM: Awake and alert, oriented times person, no facial asymmetry - Labs CBC & Chem 7: 02/22/20 10:01 02/24/20 06:58 Labs: Abnormal Lab Results - Last 24 Hours (Table) 02/23/20 02/23/20 02/24/20 Range/Units 11:47 19:22 00:56 Chloride (98-107) mmol/L Carbon Dioxide (22-30) mmol/L BUN (9-20) mg/dL Creatinine (0.66-1.25) mg/dL POC Glucose (mg/dL) 138 H 118 H 102 H (75-99) mg/dL Calcium (8.4-10.2) mg/dL 02/24/20 02/24/20 02/24/20 Range/Units 02:11 06:58 07:00 Chloride 108 H (98-107) mmol/L Carbon Dioxide 17 L (22-30) mmol/L BUN 90 H (9-20) mg/dL Creatinine 5.36 H (0.66-1.25) mg/dL POC Glucose (mg/dL) 103 H 100 H (75-99) mg/dL Calcium 6.8 L (8.4-10.2) mg/dL Assessment and Plan Plan: Assessment: #1. Acute hypoxic respiratory failure, related to fluid volume overload, interstitial edema, initiated on hemodialysis on 02/24/2020 #2. Hypothermia, not sure if this is accurate, we'll check a rectal temp, and physical exam reveals warm extremities, and patient is appropriate [place] to verbal questions, covered with broad-spectrum antibiotics #3. Worsening acute kidney injury, multifactorial limited to sepsis #4. Global aphasia and left upper extremity weakness, improved, and patient is verbally responding, and moving both upper extremities #5. Acute encephalopathy, due to sepsis, acute kidney injury, significantly improved #6. Acute non-anion gap metabolic acidosis, related to acute kidney injury #7. Left calcaneus osteomyelitis with sepsis on broad-spectrum antibiotics, status post recent surgical debridement #8. Hypothyroidism, started on levothyroxin #9. Severe pulmonary hypertension with severe tricuspid regurgitation, likely secondary to underlying obstructive sleep apnea and chronic hypoxic respiratory failure #10. recent hospitalization for bilateral leg cellulitis and heel ulcers, status post surgical debridement, patient had a PICC line placed and discharged home on IV antibiotics #11. Diabetes mellitus type 2 with diabeticneuropathy #12. Chronic congestive heart failure, with diastolic dysfunction #13. Previous history of MRSA infection #14. Chronic kidney disease stage III, previously on hemodialysis for short period of time #15. History of sleep apnea, unclear whether or not patient is compliant with CPAP #16. History o degenerative joint disease #17. Medical debility, gait dysfunction Plan: Patient appears to be more awake on today's exam, answering simple questions, denies any respiratory distress, today's chest x-ray has been reviewed showing improving pulmonary venous congestion and is anticipated to have another hemodialysis treatment today, he still quite fluid overloaded, but no resp iratory distress, nephrology is following and managing the diuretics and hemodialysis treatment. he remains on broad-spectrum antibiotics, he denies any shortness of breath, we'll continue to follow I performed a history & physical examination of the patient and discussed their management with my nurse practitioner, Mere Byrnes. I reviewed the nurse practitioner's note and agree with the documented findings and plan of care. Lung sounds are positive for diminished breath sounds. The findings and the impression was discussed with the patient. I attest to the documentation by the nurse practitioner. Time with Patient: Less than 30
[2020-02-24 11:41] LABS: Glucose,Whole Blood 138 mg/dL (75-99)
--- NOTE | 2020-02-24 14:17 | P.PN ---
Subjective Progress Note Date: 02/24/20 Principal diagnosis: This 49 years old male with multiple medical problems who was admitted on 02/01 for bilateral leg cellulitis and sepsis, patient history of wound and debridement of the heel and possible osteomyelitis per Bone scan. Patient hospital course was complicated by "stroke which was called on 02/08, patient had global aphasia with negative CT of the brain and CTA of the brain which were nondiagnostic. No MRI could be done because of his body habitus. Patient also found to have severe tricuspid regurgitation and severe pulmonary hypertension. Patient developed acute hypoxic respiratory failure and he was in the ICU treated with BiPAP. Increase intercranial pressure was suspected but the guardian did not approve lumbar puncture to be done, eventually patient was made DO NOT RESUSCITATE and guardian and family opted for no procedure, eventually patient was already accepted by [facility] hospice team , however the last 2 days patient started waking up and he was alert awake and oriented to time place and person, he was short of breath and complaining from pain in his left leg, after discussion with the family and the patient they wanted to revoke hospice care and they want patient to be treated therefore patient will be discharged from hospice care and will be admitted under medicine Currently patient is awake and alert to time, place and person, he no at least [facility] in [place] and it is January 2020, and he noted name of the president troponin Patient is short of breath and he has difficulty finishing his sentences, however he is on 2 L oxygen via nasal cannula with oxygen saturation in 90s. Chest x-ray showing bilateral pulmonary congestion and patient is provided with Lasix 40 mg twice daily. His antibiotics including cefepime and Flagyl resumed and infectious disease were consulted for further recommendation. His creatinine has trended up to 5.24, compared to 1.9 on 02/01, [employer] team consulted. Also pulmonary team were consulted as they have evaluated him before. Consult has been placed for murray Gr as he is known to the service and has been evaluated by Dr. Mcgraw. Patient was on insulin at home, we'll start him on Levemir 5 units at bedtime plus insulin sliding scale Patient is with Josue catheter 02/18/2020 Patient was sitting in the chair today, he feels gradually improving. He is breathing quietly and he is saturating high 90s ambulatory oxygen via nasal cannula. He denies any specific complaint "chest pain or dyspnea on abdominal pain or nausea vomiting, he has some loose stool but C. diff was negative. He still have pain in his left lower leg secondary to cellulitis and also myelitis of the left heel. His creatinine still on the high side but this is stable, patient continue on a ntibiotics and IV Lasix 02/19/2020 Patient clinically looks the same as yesterday, his breathing quietly on 2 L oxygen via nasal cannula, he still have some dyspnea with difficulty to finish her sentences. However no tachypnea no chest pain, no orthopnea. No abdominal pain, he has some loose bowel movement however C. diff came back negative. CBC is stable. She still has a Josue catheter, however his fluid status looks like not improving as supposed to be, patient may need hemodialysis as per nephrology recommendation. In the meantime continue with Lasix, continue with antibiotics and ID team on the case 02/20/2020 Patient clinically looks the same, he reports less pain in his left heel Nephrology and infectious disease on the case continue with antibiotics, continue with Lasix with possible need for renal replacement therapy 02/21/2020 Patient is with known new symptom, is still breathing quietly with some dyspnea and have difficulty in finishing his sentences probably related to his previous stroke. Exam is not changed and he is saturating 96% on 2 L oxygen a few nasal cannula. He is still on cefepime and I Flagyl for his diabetic left foot infection. Pathology on the case and no order for start hemodialysis so far, it looks like the patient is also reluctant to do that 02/22/2020 Patient is awake, mentally and change. He has low appetite and at times he has some swallowing difficulty. With some cough and sometimes however no worsening in his dyspnea and no chest pain, distal have this slurred or interrupted speech. No abdominal pain, he had some loose bowel movement. His left leg looks improvement and its and dressing currently We'll check his labs today and order chest x-ray for tomorrow. Also we'll ask for swallow evaluation 02/23/2020 Patient today is more lethargic, with no new weakness or numbness or slurred speech, most likely his lethargy from a his renal disease on the top of his infection, patient will need to undergo dialysis. Dialysis catheter placed by vascular surgery. Patient is going for first hemodialysis today. On the second dialysis tomorrow. Nephrology on the case. 02/24/2020 Patient is seen and evaluated in follow-up awake but easily lethargic responding to some simple commands although falls asleep easily. Patient is awaiting to receive hemodialysis as he has been on daily dialysis. Nephrology following closely. Infectious disease also following. Creatinine continues to be elevated and is currently 5.36. Patient is also maintained on IV cefepime along with Flagyl for osteomyelitis of the left foot and will continue at this time. Patient is currently on 4 L of oxygen via nasal cannula and will continue. Chest x-ray today continues to show some pulmonary venous congestion and periHilar infiltrates with mild residual although improving slightly. Patient remains on IV Lasix 80 mg twice daily and will continue at this time. Review of systems: Unable to obtain given patient's current clinical status Objective - Vital Signs Vital signs: Vital Signs Temp 97.2 F L 02/24/20 11:35 Pulse 61 02/24/20 11:35 Resp 18 02/24/20 11:35 BP 110/77 02/24/20 11:35 Pulse Ox 98 02/24/20 11:35 Intake & Output 02/23/20 02/24/20 02/24/20 18:59 06:59 18:59 Intake Total 290 0 Output Total 150 2150 Balance 140 -2150 Weight 150.252 kg Intake: Intake, IV Titration 50 Amount Cefepime 1 gm In Sodium 50 Chloride 0.9% 50 ml @ 12. 5 mls/hr IVPB Q12HR [facility] Rx#:[id number] Oral 240 0 Output: Urine 150 150 Hemodialysis 1999 Other: Voiding Method Indwelling Catheter Indwelling Catheter Indwelling Catheter # Voids 0 # Bowel Movements 2 0 1 - Exam GENERAL: The patient is alert and oriented x1-2, not in any acute distress. Lethargic. Morbidly obese HEENT: Pupils are round and equally reacting to light. EOMI. No scleral icterus. No conjunctival pallor. Normocephalic, atraumatic. No pharyngeal erythema. No thyromegaly. CARDIOVASCULAR: S1 and S2 present. No murmurs, rubs, or gallops. PULMONARY: Diminished breath sounds bilaterally with some scattered rhonchi noted. no wheezing or crackles. ABDOMEN: Soft, nontender, nondistended, normoactive bowel sounds. No palpable organomegaly. MUSCULOSKELETAL: No joint swelling or deformity. -EXTREMITIES: No cyanosis, clubbing, or pedal edema. Bilateral heel wounds noted with black eschar on the left heel, dressing is in place NEUROLOGICAL: Gross neurological examination did not reveal any focal deficits. Diffusely weak. SKIN: No rashes. no petechiae. - Labs CBC & Chem 7: 02/22/20 10:01 02/24/20 06:58 Labs: Abnormal Lab Results - Last 24 Hours (Table) 02/23/20 02/23/20 02/24/20 Range/Units 11:47 19:22 00:56 Chloride (98-107) mmol/L Carbon Dioxide (22-30) mmol/L BUN (9-20) mg/dL Creatinine (0.66-1.25) mg/dL POC Glucose (mg/dL) 138 H 118 H 102 H (75-99) mg/dL Calcium (8.4-10.2) mg/dL 02/24/20 02/24/20 02/24/20 Range/Units 02:11 06:58 07:00 Chloride 108 H (98-107) mmol/L Carbon Dioxide 17 L (22-30) mmol/L BUN 90 H (9-20) mg/dL Creatinine 5.36 H (0.66-1.25) mg/dL POC Glucose (mg/dL) 103 H 100 H (75-99) mg/dL Calcium 6.8 L (8.4-10.2) mg/dL 02/24/20 Range/Units 11:40 Chloride (98-107) mmol/L Carbon Dioxide (22-30) mmol/L BUN (9-20) mg/dL Creatinine (0.66-1.25) mg/dL POC Glucose (mg/dL) 138 H (75-99) mg/dL Calcium (8.4-10.2) mg/dL Assessment and Plan Assessment: Bilateral lower extremity cellulitis and osteomyelitis of the left calcaneal bone, with Left heel diabetic ulcer, status post debridement Acute hypoxic respiratory failure, secondary to pulmonary congestion as well as sepsis from his bilateral leg cellulitis and osteomyelitis, and severe pulmonary hypertension Acute kidney injury Altered mental status, secondary to metabolic encephalopathy with suspected stroke, also significantly improved patient is awake and oriented Anion gap metabolic acidosis Hypothyroidism Acute on chronic Systolic CHF , ejection fraction 45-50% Severe Pulmonary HTN History of Blood in the stool Type 2 diabetes mellitus poorly controlled with hyperglycemia Peripheral neuropathy CKD stage III Obstructive sleep apnea Possible obesity hypoventilation syndrome History of MRSA of the right shoulder Degenerative joint disease Morbid obesity with BMI 47.1 GI prophylaxis: Pepcid DVT prophylaxis: Subcu heparin Plan: Continue current medications, management, and symptomatic treatment. Multiple medical consultations following. Patient is currently maintained on IV antibiotics and will continue at this time. Nephrology also following and patient is currently maintained on daily hemodialysis. Will repeat a.m. labs and continue to monitor closely. Further recommendations to follow. Case management and social work following this patient will need placement at an ECF in case management also working [facility]. Due to multiple complex medical issues, prognosis is guarded.
--- NOTE | 2020-02-24 15:41 | IR ---
EXAMINATION TYPE: IR cvc insert central tunneled DATE OF EXAM: 02/23/2020 CLINICAL HISTORY: Dialysis failure. TECHNIQUE: Fluoroscopy. COMPARISON: None. FINDINGS: Fluoroscopic guidance was provided during dialysis catheter insertion procedure performed by Dr. Hernández. A total of 16.5 minute of fluoroscopic time was utilized during the procedure and mu ltiple images are acquired. Please refer to procedure note for further details. IMPRESSION: As Above.
--- NOTE | 2020-02-24 15:48 | PN ---
PROGRESS NOTE DATE OF SERVICE: 02/24/2020 REASON FOR FOLLOWUP: Left heel osteomyelitis. INTERVAL HISTORY: The patient is currently afebrile. The patient is breathing comfortably. Denies having any chest pain, shortness of breath or cough. No nausea or vomiting or abdominal pain. Pain to the left heel. PHYSICAL EXAMINATION: Blood pressure 110/77 with a pulse of 61, temperature 97.2. He is 98% on 2 L nasal cannula. General description is a middle-aged male lying in bed in no distress. RESPIRATORY SYSTEM: Unlabored breathing. Clear to auscultation anteriorly. HEART: S1, S2. Regular rate and rhythm. ABDOMEN: Soft. No tenderness. Left heel knee is currently dressed up. No obvious drainage on the dressing. LABS: BUN of 90, creatinine 4.66. DIAGNOSTIC IMPRESSION AND PLAN: Patient with left diabetic wound infection with osteomyelitis of the heel. Previous culture positive for Morganella, strep and anaerobes. Patient is covered cefepime and Flagyl. Local care with [facility]. Keep the area dry and off pressure. Continue supportive care. MMODL / IJN: [id number] /
[2020-02-24 17:23] LABS: Glucose,Whole Blood 107 mg/dL (75-99)
[2020-02-24] MEDS: INSULIN DETEMIR (LEVEMIR) 100 UNIT/ML SYR SQ SCH (20:00)
[2020-02-24 20:26] LABS: Glucose,Whole Blood 119 mg/dL (75-99)
[2020-02-25 02:18] LABS: Glucose,Whole Blood 111 mg/dL (75-99)
[2020-02-25] MEDS: LEVOTHYROXINE 75 MCG TAB PO SCH (05:39)
[2020-02-25 07:02] LABS: Glucose,Whole Blood 111 mg/dL (75-99)
[2020-02-25] MEDS: INSULIN ASPART (NovoLOG) 100 UNIT/ML VIAL SQ SCH ×4 (07:22→21:24)
[2020-02-25] MEDS: HEPARIN SODIUM,PORCINE 5,000 UNIT/ML 1 ML VIAL SQ SCH ×2 (08:06→21:32)
[2020-02-25] MEDS: ASPIRIN 81 MG PO SCH (08:06)
[2020-02-25] MEDS: CEFEPIME 1 GM in SODIUM CHLORIDE 0.9% 50 ML IVPB SCH ×2 (08:06→21:31)
[2020-02-25] MEDS: FUROSEMIDE 10 MG/ML 10 ML VIAL IV SCH ×2 (08:06→21:31)
[2020-02-25] MEDS: metroNIDAZOLE 500 MG TAB PO SCH ×2 (08:06→15:56)
[2020-02-25] MEDS: MULTIVITAMINS, THERA 1 EACH TAB PO SCH (08:06)
[2020-02-25] MEDS: FAMOTIDINE 20 MG TAB PO SCH (08:06)
[2020-02-25] MEDS: SODIUM BICARBONATE TAB 650 MG TAB PO SCH ×4 (08:06→21:31)
[2020-02-25] MEDS: carvediloL 12.5 MG TAB PO SCH ×2 (08:07→17:31)
[2020-02-25 08:58] LABS: Calcium 6.8 mg/dL (8.4-10.2); Magnesium 1.9 mg/dL (1.6-2.3); Potassium 4.1 mmol/L (3.5-5.1)
--- NOTE | 2020-02-25 10:26 | P.PN ---
Subjective Patient is seen in follow-up for acute kidney injury. Due to worsening GFR and severe volume overload, he was started on renal replacement therapy on February 22. Tolerated 2 L ultrafiltration yesterday. No active complaints at this time. Patient doesn't verbalize much. No changes overnight. Vital signs are stable. General: The patient appeared well nourished and normally developed. HEENT: Head exam is unremarkable. Neck is without jugular venous distension. LUNGS: Breath sounds decreased. HEART: Rate and Rhythm are regular. ABDOMEN: Soft, nontender. Obese. EXTREMITITES: 2+ edema. Severe scrotal edema noted. Objective - Vital Signs Vital signs: Vital Signs Temp 98.5 F 02/25/20 05:00 Pulse 61 02/25/20 05:00 Resp 20 02/25/20 05:00 BP 93/54 02/25/20 05:00 Pulse Ox 96 02/25/20 05:00 Intake & Output 02/24/20 02/25/20 02/25/20 18:59 06:59 18:59 Intake Total 50 370 Output Total 225 Balance 50 145 Weight 150.252 kg 135 kg Intake: Intake, IV Titration 50 Amount Cefepime 1 gm In Sodium 50 Chloride 0.9% 50 ml @ 12. 5 mls/hr IVPB Q12HR [facility] Rx#:[id number] Oral 50 320 Output: Urine 225 Other: Voiding Method Indwelling Catheter Indwelling Catheter # Bowel Movements 1 - Labs CBC & Chem 7: 02/22/20 10:01 02/25/20 07:50 Labs: Abnormal Lab Results - Last 24 Hours (Table) 02/24/20 02/24/20 02/24/20 Range/Units 11:40 17:21 20:06 Carbon Dioxide (22-30) mmol/L BUN (9-20) mg/dL Creatinine (0.66-1.25) mg/dL POC Glucose (mg/dL) 138 H 107 H 119 H (75-99) mg/dL Calcium (8.4-10.2) mg/dL 02/25/20 02/25/20 02/25/20 Range/Units 02:08 07:01 07:50 Carbon Dioxide 21 L (22-30) mmol/L BUN 66 H (9-20) mg/dL Creatinine 4.28 H (0.66-1.25) mg/dL POC Glucose (mg/dL) 111 H 111 H (75-99) mg/dL Calcium 6.8 L (8.4-10.2) mg/dL Microbiology - Last 24 Hours (Table) 02/23/20 13:57 Blood Culture - Preliminary Blood No Growth after 24 hours 02/23/20 14:11 Blood Culture - Preliminary Blood No Growth after 24 hours Assessment and Plan Plan: Assessment: 1. Acute kidney injury secondary to ATN secondary to vancomycin toxicity as well as contrast-induced acute kidney injury. Creatinine peaked at 5.99 this admission. Started on hemodialysis on February 22 for severe volume overload. 2. Metabolic acidosis secondary to acute kidney injury maintained on oral sodium bicarbonate. Expect further improvement postdialysis. Improving. 3. Volume overload. 4. Acute on chronic systolic CHF with ejection fraction of 40-45% with severe pulmonary hypertension. 5. Left lower extremity osteomyelitis. Maintained on antibiotics. 6. Chronic kidney disease stage II with baseline creatinine 1-1.1. 7. Diabetes mellitus. Plan: Continue with daily dialysis for now. I will change Lasix to 80 mg orally twice daily. Continue to monitor for renal recovery. search engine marketing manager to help set up outpatient dialysis.
--- NOTE | 2020-02-25 10:47 | P.PN ---
Subjective Progress Note Date: 02/25/20 Principal diagnosis: Hypoxic rest or a failure secondary to fluid overload This is a 49-year-old white male patient that we saw in consultation on 02/11/2020 last week for hypoxic respiratory failure related to sepsis, secondary to left calcaneal osteomyelitis, acute kidney injury, and patient was having neurological abnormalities that included global aphasia, and left upper e xtremity weakness, with a concern of meningoencephalitis, however LP was not performed because the patient's sister declined any aggressive medical treatment. CT of the brain did not show evidence of aneurysm or acute ischemia. Patient's was treated medically, his breathing was supported with BiPAP, he was receiving broad-spectrum antibiotics for osteomyelitis of the left calcaneus status post debridement. Patient codes status was DO NOT RESUSCITATE, per his next of kin, who is his sister, clinically patient was not improving, and she decided to place the patient in hospice comfort and initiate comfort care protocol. He was discharged into hospice care on 02/16/2020. Today we're asked to see the patient again on 02/17/2020. In the last 24 hours his mentation has significantly improved, is awake and alert, he remembered Dr. Brown from previously seen him in the pulmonary clinic on an outpatient basis where Dr. Brown treats him for history of COPD obstructive sleep apnea. Appears to be in no acute distress, resting comfortably in bed, we seen the patient on the general medical oncology floor. He is currently on 2 L of oxygen the pulse ox of 99%, hemodynamically stable, breathing is comfortable, nonlabored, he is afebrile. Today's labs have been reviewed, his white count is 5.0, hemoglobin is 8.0, sodium is 139, potassium is 4.7, chloride is 112, CO2 is 21, BUN of 97, creatinine is 5.24. His right leg and culture was positive for Diann, and left leg wound culture was Diann albicans. His blood culture from previous admission was negative. His antibiotics have been restarted with cefepime and Flagyl. Patient is edematous, and he has been started on IV Lasix at 40 mg every 12 hours. Appears stable right now, he is tolerating oral diet. The patient is seen today 02/18/2020 in follow-up on the oncology unit. He is awake and alert in no acute distress. He is maintaining good O2 saturations in the upper 90s on 2 L/m per nasal cannula. He is afebrile. White count 4.8. Hemoglobin 8.2. Platelets 102,000. Sodium 139. Potassium 4.7. Creatinine 5.13. He remains on IV diuretics. Cefepime. Flagyl. The patient is seen today 02/19/2020 in follow-up on the oncology unit. He is currently sitting up in a chair at the bedside. Awake and alert in no acute distress. Maintaining good O2 saturations in the 90s on 2 L/m per nasal cannula. He is afebrile. Hemodynamically stable. White count 4.9. Hemoglobin 8.1. Sodium 131. Potassium 4.7. Creatinine 5.18. Glucose 159. C. difficile screen negative. He remains on cefepime and Flagyl. Remains on IV diuretics. On 02/23/2020 patient was seen again at the request of the nursing staff on the regular medical surgical floor. The nursing staff was concerned about patient being hypothermic, and his temperature was only registering at 93.7F axillary, however on physical examination patient feels warm, including his lower extremities, he is sleepy however she is easily arousable to verbal stimuli, and he is able to provide simple answers. We'll obtain rectal temp, blood pressures 124/79, no worsening shortness of breath. He is on 3 L of oxygen his pulse ox is 95%, today's chest x-ray shows cardiomegaly, CHF with interstitial pulmonary edema, suspect small pleural effusions, patient is scheduled for hemodialysis catheter insertion today with Dr. Hernández, and hemodialysis will be initiated. Patient has generalized edema, including upper and lower extremities, Josue catheter is in place and there has been 500 mL of urine in the last 24 hours. No nausea vomiting or diarrhea. Today's labs have been reviewed, showing serum sodium of 140, potassium is 5.2, chloride is 110, CO2 is 18, BUN is 110, and creatinine is 5.9, nephrology is following, anxiety initiate the patient on hem odialysis for severe fluid volume overload the worsening renal function. Patient remains on cefepime for antibiotic coverage, and oral Flagyl. He is on Lasix 80 mg every 12 hours. On 02/24/2020 patient seen in follow-up on general medical surgical floor. Yesterday he had left groin hemodialysis placed, hemodialysis was started and a 2 L of fluid was removed, patient remains on IV Lasix at 80 mg every 12 hours. And he is in -2010 mL over the last 24 hours. Significantly fluid overloaded, a nd upper and lower extremities, abdomen. Mentation seems to be better, patient is awake, he is answering simple questions, he denies any shortness of breath he is on 4 L of oxygen a pulse ox of 100%. Blood pressure is stable 127/72, temperature has improved, with the 96 axillary last night, and this morning oral temperature is 90.4, however this probably inaccurate reading, as the patient is a mouth breather, and physical exam reveals dry and warm skin. Yesterday lactic acid was drawn and sent back normal at 0.8, blood cultures were sent. Lung sounds are clear, diminished at the bases, abdomen is nontender, obese, edematous, no nausea or vomiting. Lower extremities are wrapped, local w ound care is being done per ID service recommendations. Today's labs have been reviewed showing sodium of 140, potassium is 4.9, chloride is 108, CO2 is 17, B1 is 90 and creatinine is 5.36. On 02/25/2020 patient is seen in follow-up on the regular medical surgical floor, he is awake and alert, somewhat slow to respond, but providing simple answers, denies any acute distress, no shortness of breath, he is on 2 L of oxygen with a pulse ox of 96%, hemodynamically stable, normothermic, with a temp of 98.5F, respirations are nonlabored, lung sounds are clear, diminished at the bases, patient is having a hemodialysis treatment again today, his blood dialyzed every day for last 3 days, yesterday he had 3 L of fluid removed, today the posterior removing on 3 L of fluid. His generalized edema is improving, today's labs have been reviewed, showing improving renal function, with the BUN down to 66 and creatinine of 4.28. Blood cultures have shown no growth, he has had no fever or chills. He is receiving local wound care to his lower extremity wounds, ID service is following, antibiotic coverage is in the form of cefepime and Flagyl. He is on oral Lasix 80 mg every 12 hours, he is in -2000 ML fluid balance over the last 24 hours. Overall patient's weight is down by 15 kg in the last few days. Objective - Vital Signs Vital signs: Vital Signs Temp 98.5 F 02/25/20 05:00 Pulse 61 02/25/20 05:00 Resp 20 02/25/20 05:00 BP 93/54 02/25/20 05:00 Pulse Ox 96 02/25/20 05:00 Intake & Output 02/24/20 02/25/20 02/25/20 18:59 06:59 18:59 Intake Total 50 370 Output Total 225 Balance 50 145 Weight 150.252 kg 135 kg Intake: Intake, IV Titration 50 Amount Cefepime 1 gm In Sodium 50 Chloride 0.9% 50 ml @ 12. 5 mls/hr IVPB Q12HR [facility], [facility]1983 Rx#:[id number] Oral 50 320 Output: Urine 225 Other: Voiding Method Indwelling Catheter Indwelling Catheter # Bowel Movements 1 - Exam GENERAL EXAM: Awake, oriented to person 49-year-old morbidly obese male patient, on 2 L of oxygen pulse ox of 96%, resting comfortable in bed, answering questions appropriately HEAD: Normocephalic/atraumatic. EYES: Normal reaction of pupils, left pupil measuring 5 mm, mildly reactive to light, right pupil is 2 mm in diameter reactive. Conjunctiva pink, sclera white. NOSE: Clear with pink turbinates. THROAT: No erythema or exudates. NECK: No masses, no JVD, no thyroid enlargement, no adenopathy. CHEST: No chest wall deformity. Symmetrical expansion. LUNGS: Equal air entry with crackles in the bilateral posterior bases. CVS: Regular rate and rhythm, normal S1 and S2, no gallops, no murmurs, no rubs ABDOMEN: Soft, nontender. No hepatosplenomegaly, normal bowel sounds, no guarding or rigidity. EXTREMITIES: No clubbing, significant edema involving upper and lower extremities, no cyanosis, 2+ pulses and upper and lower extremities. bilateral lower extremities covered with dressings MUSCULOSKELETAL: Muscle strength and tone normal. SPINE: No scoliosis or deformity SKIN: No rashes CENTRAL NERVOUS SYSTEM: Awake and alert, oriented times person, no facial asymmetry - Labs CBC & Chem 7: 02/22/20 10:01 02/25/20 07:50 Labs: Abnormal Lab Results - Last 24 Hours (Table) 02/24/20 02/24/20 02/24/20 Range/Units 11:40 17:21 20:06 Carbon Dioxide (22-30) mmol/L BUN (9-20) mg/dL Creatinine (0.66-1.25) mg/dL POC Glucose (mg/dL) 138 H 107 H 119 H (75-99) mg/dL Calcium (8.4-10.2) mg/dL 02/25/20 02/25/20 02/25/20 Range/Units 02:08 07:01 07:50 Carbon Dioxide 21 L (22-30) mmol/L BUN 66 H (9-20) mg/dL Creatinine 4.28 H (0.66-1.25) mg/dL POC Glucose (mg/dL) 111 H 111 H (75-99) mg/dL Calcium 6.8 L (8.4-10.2) mg/dL Microbiology - Last 24 Hours (Table) 02/23/20 13:57 Blood Culture - Preliminary Blood No Growth after 24 hours 02/23/20 14:11 Blood Culture - Preliminary Blood No Growth after 24 hours Assessment and Plan Plan: Assessment: #1. Acute hypoxic respiratory failure, related to fluid volume overload, interstitial edema, initiated on hemodialysis on 02/24/2020, improving, and FiO2 is down to 2 L, with a pulse ox of 96% #2. Hypothermia, not sure if this is accurate, we'll check a rectal temp, and physical exam reveals warm extremities, and patient is appropriate [place] to verbal questions, covered with broad-spectrum antibiotics. Improved #3. Worsening acute kidney injury, multifactorial limited to sepsis and ATN, patient was initiated on hemodialysis, renal function is improving #4. Global aphasia and left upper extremity weakness, improved, and patient is verbally responding, and moving both upper extremities #5. Acute encephalopathy, due to sepsis, acute kidney injury, significantly improved #6. Acute non-anion gap metabolic acidosis, related to acute kidney injury #7. Left calcaneus osteomyelitis with sepsis on broad-spectrum antibiotics, status post recent surgical debridement #8. Hypothyroidism, started on levothyroxin #9. Severe pulmonary hypertension with severe tricuspid regurgitation, likely secondary to underlying obstructive sleep apnea and chronic hypoxic respiratory failure #10. recent hospitalization for bilateral leg cellulitis and heel ulcers, status post surgical debridement, patient had a PICC line placed and discharged home on IV antibiotics #11. Diabetes mellitus type 2 with diabeticneuropathy #12. Chronic congestive heart failure, with diastolic dysfunction #13. Previous history of MRSA infection #14. Chronic kidney disease stage III, previously on hemodialysis for short period of time #15. History of sleep apnea, unclear whether or not patient is compliant with C PAP #16. History o degenerative joint disease #17. Medical debility, gait dysfunction Plan: Patient's breathing is comfortable, FiO2 is down to 2 L, fluid balance status is improving, his been afebrile, normothermic, generalized edema is improving, he is being dialyzed again today, with a goal of removal 3 L of fluid. Renal function is improving. Maintain aspiration precautions. I performed a history & physical examination of the patient and discussed their management with my nurse practitioner, Mere Byrnes. I reviewed the nurse practitioner's note and agree with the documented findings and plan of care. Lung sounds are positive for diminished breath sounds. The findings and the impression was discussed with the patient. I attest to the documentation by the nurse practitioner. Time with Patient: Less than 30
[2020-02-25 11:21] LABS: Glucose,Whole Blood 90 mg/dL (75-99)
--- NOTE | 2020-02-25 12:45 | P.PN ---
Subjective Progress Note Date: 02/25/20 Principal diagnosis: This 49 years old male with multiple medical problems who was admitted on 02/01 for bilateral leg cellulitis and sepsis, patient history of wound and debridement of the heel and possible osteomyelitis per Bone scan. Patient hospital course was complicated by "stroke which was called on 02/08, patient had global aphasia with negative CT of the brain and CTA of the brain which were nondiagnostic. No MRI could be done because of his body habitus. Patient also found to have severe tricuspid regurgitation and severe pulmonary hypertension. Patient developed acute hypoxic respiratory failure and he was in the ICU treated with BiPAP. Increase intercranial pressure was suspected but the guardian did not approve lumbar puncture to be done, eventually patient was made DO NOT RESUSCITATE and guardian and family opted for no procedure, eventually patient was already accepted by [facility] hospice team , however the last 2 days patient started waking up and he was alert awake and oriented to time place and person, he was short of breath and complaining from pain in his left leg, after discussion with the family and the patient they wanted to revoke hospice care and they want patient to be treated therefore patient will be discharged from hospice care and will be admitted under medicine Currently patient is awake and alert to time, place and person, he no at least [facility] in [place] and it is January 2020, and he noted name of the president troponin Patient is short of breath and he has difficulty finishing his sentences, however he is on 2 L oxygen via nasal cannula with oxygen saturation in 90s. Chest x-ray showing bilateral pulmonary congestion and patient is provided with Lasix 40 mg twice daily. His antibiotics including cefepime and Flagyl resumed and infectious disease were consulted for further recommendation. His creatinine has trended up to 5.24, compared to 1.9 on 02/01, Re[employer] Service [employer] team consulted. Also pulmonary team were consulted as they have evaluated him before. Consult has been placed for murray Gr as he is known to the service and has been evaluated by Dr. Mcgraw. Patient was on insulin at home, we'll start him on Levemir 5 units at bedtime plus insulin sliding scale Patient is with Josue catheter 02/18/2020 Patient was sitting in the chair today, he feels gradually improving. He is breathing quietly and he is saturating high 90s ambulatory oxygen via nasal cannula. He denies any specific complaint "chest pain or dyspnea on abdominal pain or nausea vomiting, he has some loose stool but C. diff was negative. He still have pain in his left lower leg secondary to cellulitis and also myelitis of the left heel. His creatinine still on the high side but this is stable, patient continue on a ntibiotics and IV Lasix 02/19/2020 Patient clinically looks the same as yesterday, his breathing quietly on 2 L oxygen via nasal cannula, he still have some dyspnea with difficulty to finish her sentences. However no tachypnea no chest pain, no orthopnea. No abdominal pain, he has some loose bowel movement however C. diff came back negative. CBC is stable. She still has a Josue catheter, however his fluid status looks like not improving as supposed to be, patient may need hemodialysis as per nephrology recommendation. In the meantime continue with Lasix, continue with antibiotics and ID team on the case 02/20/2020 Patient clinically looks the same, he reports less pain in his left heel Nephrology and infectious disease on the case continue with antibiotics, continue with Lasix with possible need for renal replacement therapy 02/21/2020 Patient is with known new symptom, is still breathing quietly with some dyspnea and have difficulty in finishing his sentences probably related to his previous stroke. Exam is not changed and he is saturating 96% on 2 L oxygen a few nasal cannula. He is still on cefepime and I Flagyl for his diabetic left foot infection. Pathology on the case and no order for start hemodialysis so far, it looks like the patient is also reluctant to do that 02/22/2020 Patient is awake, mentally and change. He has low appetite and at times he has some swallowing difficulty. With some cough and sometimes however no worsening in his dyspnea and no chest pain, distal have this slurred or interrupted speech. No abdominal pain, he had some loose bowel movement. His left leg looks improvement and its and dressing currently We'll check his labs today and order chest x-ray for tomorrow. Also we'll ask for swallow evaluation 02/23/2020 Patient today is more lethargic, with no new weakness or numbness or slurred speech, most likely his lethargy from a his renal disease on the top of his infection, patient will need to undergo dialysis. Dialysis catheter placed by vascular surgery. Patient is going for first hemodialysis today. On the second dialysis tomorrow. Nephrology on the case. 02/24/2020 Patient is seen and evaluated in follow-up awake but easily lethargic responding to some simple commands although falls asleep easily. Patient is awaiting to receive hemodialysis as he has been on daily dialysis. Nephrology following closely. Infectious disease also following. Creatinine continues to be elevated and is currently 5.36. Patient is also maintained on IV cefepime along with Flagyl for osteomyelitis of the left foot and will continue at this time. Patient is currently on 4 L of oxygen via nasal cannula and will continue. Chest x-ray today continues to show some pulmonary venous congestion and periHilar infiltrates with mild residual although improving slightly. Patient remains on IV Lasix 80 mg twice daily and will continue at this time. Review of systems: Unable to obtain given patient's current clinical status 02/25/2020 Patient is seen and evaluated in follow-up currently receiving hemodialysis. No acute overnight issues. Patient continues to be extremely lethargic and alert and oriented 1-2. Creatinine today slightly improved at 4.28 with a BUN of 66. Potassium is 4.1 sodium is currently 139. Magnesium is 1.9. Multiple medical consultations following including pulmonary, infectious disease, and nephrology. Patient is maintained on daily dialysis and will continue at this time. Case management also following along with social work making arrangements for ECF placement once stabilized and discharged. Patient will need dialysis in the outpatient setting and awaiting for chair [facility] at [facility]. We'll continue to monitor closely. Objective - Vital Signs Vital signs: Vital Signs Temp 98.5 F 02/25/20 05:00 Pulse 61 02/25/20 05:00 Resp 20 02/25/20 05:00 BP 93/54 02/25/20 05:00 Pulse Ox 96 02/25/20 05:00 Intake & Output 02/24/20 02/25/20 02/25/20 18:59 06:59 18:59 Intake Total 50 370 Output Total 225 Balance 50 145 Weight 150.252 kg 135 kg Intake: Intake, IV Titration 50 Amount Cefepime 1 gm In Sodium 50 Chloride 0.9% 50 ml @ 12. 5 mls/hr IVPB Q12HR [facility] Rx#:[id number] Oral 50 320 Output: Urine 225 Other: Voiding Method Indwelling Catheter Indwelling Catheter Indwelling Catheter # Bowel Movements 1 - Exam GENERAL: The patient is alert and oriented x1-2, not in any acute distress. Lethargic. Arousable to name. Morbidly obese HEENT: Pupils are round and equally reacting to light. EOMI. No scleral icterus. No conjunctival pallor. Normocephalic, atraumatic. No pharyngeal erythema. No thyromegaly. CARDIOVASCULAR: S1 and S2 present. No murmurs, rubs, or gallops. PULMONARY: Diminished breath sounds bilaterally with some scattered rhonchi noted. no wheezing or crackles. ABDOMEN: Soft, nontender, nondistended, normoactive bowel sounds. No palpable organomegaly. MUSCULOSKELETAL: No joint swelling or deformity. EXTREMITIES: No cyanosis, clubbing, or pedal edema. Bilateral heel wounds noted with black eschar on the left heel, dressing is in place NEUROLOGICAL: Gross neurological examination did not reveal any focal deficits. Diffusely weak. SKIN: No rashes. no petechiae. - Labs CBC & Chem 7: 02/22/20 10:01 02/25/20 07:50 Labs: Abnormal Lab Results - Last 24 Hours (Table) 02/24/20 02/24/20 02/24/20 Range/Units 11:40 17:21 20:06 Carbon Dioxide (22-30) mmol/L BUN (9-20) mg/dL Creatinine (0.66-1.25) mg/dL POC Glucose (mg/dL) 138 H 107 H 119 H (75-99) mg/dL Calcium (8.4-10.2) mg/dL 02/25/20 02/25/20 02/25/20 Range/Units 02:08 07:01 07:50 Carbon Dioxide 21 L (22-30) mmol/L BUN 66 H (9-20) mg/dL Creatinine 4.28 H (0.66-1.25) mg/dL POC Glucose (mg/dL) 111 H 111 H (75-99) mg/dL Calcium 6.8 L (8.4-10.2) mg/dL Microbiology - Last 24 Hours (Table) 02/23/20 13:57 Blood Culture - Preliminary Blood No Growth after 24 hours 02/23/20 14:11 Blood Culture - Preliminary Blood No Growth after 24 hours Assessment and Plan Assessment: Bilateral lower extremity cellulitis and osteomyelitis of the left calcaneal bone, with Left heel diabetic ulcer, status post debridement Acute hypoxic respiratory failure, secondary to pulmonary congestion as well as sepsis from his bilateral leg cellulitis and osteomyelitis, and severe pulmonary hypertension Acute kidney injury Altered mental status, secondary to metabolic encephalopathy with suspected stroke, also significantly improved patient is awake and oriented Anion gap metabolic acidosis Hypothyroidism Acute on chronic Systolic CHF , ejection fraction 45-50% Severe Pulmonary HTN History of Blood in the stool Type 2 diabetes mellitus poorly controlled with hyperglycemia Peripheral neuropathy CKD stage III Obstructive sleep apnea Possible obesity hypoventilation syndrome History of MRSA of the right shoulder Degenerative joint disease Morbid obesity with BMI 47.1 GI prophylaxis: Pepcid DVT prophylaxis: Subcu heparin Plan: Continue current medications, management, and symptomatic treatment. Multiple medical consultations following. Patient is currently maintained on IV antibiotics and will continue at this time. Nephrology also following and patient is currently maintained on daily hemodialysis. Transitioning IV Lasix to oral. Will repeat a.m. labs and continue to monitor closely. Further recommendations to follow. Case management and social work following this patient will need placement at an ECF in case management also working on chair times for hemodialysis in the outpatient setting. Due to multiple complex medical issues, prognosis is guarded.
[2020-02-25 17:13] LABS: Glucose,Whole Blood 89 mg/dL (75-99)
--- NOTE | 2020-02-25 17:20 | PN ---
PROGRESS NOTE DATE OF SERVICE: 02/25/2020 REASON FOR FOLLOWUP: Left heel osteomyelitis. INTERVAL HISTORY: The patient is currently afebrile, has been breathing comfortably. The patient denies having any chest pain. Occasional cough. No abdominal pain. No worsening pain to the left heel. PHYSICAL EXAMINATION: Blood pressure 121/75, pulse of 80, temperature 96.4. General description is a middle-aged male lying in bed in no distress. RESPIRATORY SYSTEM: Unlabored breathing. Clear to auscultation anteriorly. HEART: S1, S2. Regular rate and rhythm. ABDOMEN: Soft. No tenderness. LABS: BUN of 66, creatinine 4.28. Blood culture has been negative. DIAGNOSTIC IMPRESSION AND PLAN: Patient with left heel osteomyelitis. Previous cultures were positive for Morganella, strep and anaerobes. The patient is covered with cefepime and Flagyl. Continue local wound care with [facility]. Keep the area dry and off pressure. MMODL / IJN: [id number] /
[2020-02-25 20:52] LABS: Glucose,Whole Blood 104 mg/dL (75-99)
[2020-02-25] MEDS: INSULIN DETEMIR (LEVEMIR) 100 UNIT/ML SYR SQ SCH (21:32)
[2020-02-26] MEDS: metroNIDAZOLE 500 MG TAB PO SCH ×3 (00:38→18:49)
[2020-02-26 00:49] LABS: Glucose,Whole Blood 111 mg/dL (75-99)
[2020-02-26 04:02] LABS: Glucose,Whole Blood 115 mg/dL (75-99)
[2020-02-26 05:29] LABS: Glucose,Whole Blood 110 mg/dL (75-99)
[2020-02-26] MEDS: LEVOTHYROXINE 75 MCG TAB PO SCH (05:42)
[2020-02-26 05:56] LABS: ABG Base Excess -3.6 mmol/L; ABG HCO3 24 mmol/L (21-25); ABG Oxygen Saturation 95.9 % (94-97); ABG PCO2 66 mmHg (35-45); ABG PO2 98 mmHg (83-108); Allen Test Performed? Yes
[2020-02-26 05:57] LABS: ABG PH 7.19 (7.35-7.45)
[2020-02-26 07:19] LABS: Glucose,Whole Blood 117 mg/dL (75-99)
[2020-02-26 07:47] LABS: Calcium 7.4 mg/dL (8.4-10.2); Potassium 3.6 mmol/L (3.5-5.1)
[2020-02-26 07:52] LABS: Anisocytosis Slight; HCT 27.5 % (39.0-53.0); HGB 7.8 gm/dL (13.0-17.5); Hypochromasia Marked; MCH 30.7 pg (25.0-35.0); MCHC 28.4 g/dL (31.0-37.0); MCV 108.1 fL (80.0-100.0); Macrocytosis Marked; Mean Platelet Volume 10.4; Platelet Count 140 k/uL (150-450); Poikilocytosis Slight; RBC 2.54 m/uL (4.30-5.90)
[2020-02-26 09:08] LABS: Band Neutrophils % 1 %; Basophils # (M) 0.06 k/uL (0-0.2); Eosinophils # (M) 0.24 k/uL (0-0.7); Lymphocytes # (M) 0.66 k/uL (1.0-4.8); Monocytes # (M) 0.54 k/uL (0-1.0); Myelocytes # (M) 0.18 k/uL (0); Myelocytes % 3 %; Neutrophils % (M) 73 %; Nucleated Red Blood Cells 1 /100 WBC (0-0); Total Cells Counted 200
[2020-02-26 09:09] LABS: Rouleaux Present
[2020-02-26] MEDS: INSULIN ASPART (NovoLOG) 100 UNIT/ML VIAL SQ SCH ×3 (09:31→23:47)
[2020-02-26] MEDS: FAMOTIDINE 20 MG TAB PO SCH (10:48)
[2020-02-26] MEDS: ASPIRIN 81 MG PO SCH (10:48)
[2020-02-26] MEDS: carvediloL 12.5 MG TAB PO SCH ×2 (10:48→18:49)
[2020-02-26] MEDS: MULTIVITAMINS, THERA 1 EACH TAB PO SCH (10:49)
[2020-02-26] MEDS: SODIUM BICARBONATE TAB 650 MG TAB PO SCH ×4 (10:49→23:14)
[2020-02-26 10:55] LABS: ABG Base Excess -3.4 mmol/L; ABG HCO3 23 mmol/L (21-25); ABG Oxygen Saturation 97.4 % (94-97); ABG PCO2 48 mmHg (35-45); ABG PH 7.29 (7.35-7.45); ABG PO2 103 mmHg (83-108); ABG TCO2 25 mmol/L (19-24); Allen Test Performed? Yes
[2020-02-26] MEDS: FUROSEMIDE 10 MG/ML 10 ML VIAL IV SCH ×2 (11:02→22:58)
[2020-02-26] MEDS: HEPARIN SODIUM,PORCINE 5,000 UNIT/ML 1 ML VIAL SQ SCH ×2 (11:03→22:59)
[2020-02-26] MEDS: CEFEPIME 1 GM in SODIUM CHLORIDE 0.9% 50 ML IVPB SCH ×2 (11:03→23:41)
--- NOTE | 2020-02-26 11:24 | XR ---
EXAMINATION TYPE: XR chest 1V portable DATE OF EXAM: 02/26/2020 Comparison: 02/24/2020 Clinical History: 49 year-old male shortness of breath Findings: Large patient body habitus limits the exam along with semiupright AP portable technique. Old healed r ight midclavicular shaft fracture deformity. Heart remains enlarged. Continued perihilar and intersti tial opacities. Small effusions are suspected. Impression: Limited portable exam with large patient body habitus and underpenetration. Correlate for continued C HF with pulmonary vascular congestion. Suspect small effusions.
--- NOTE | 2020-02-26 11:35 | P.PN ---
Subjective Progress Note Date: 02/26/20 Principal diagnosis: Hypoxic rest or a failure secondary to fluid overload This is a 49-year-old white male patient that we saw in consultation on 02/11/2020 last week for hypoxic respiratory failure related to sepsis, secondary to left calcaneal osteomyelitis, acute kidney injury, and patient was having neurological abnormalities that included global aphasia, and left upper e xtremity weakness, with a concern of meningoencephalitis, however LP was not performed because the patient's sister declined any aggressive medical treatment. CT of the brain did not show evidence of aneurysm or acute ischemia. Patient's was treated medically, his breathing was supported with BiPAP, he was receiving broad-spectrum antibiotics for osteomyelitis of the left calcaneus status post debridement. Patient codes status was DO NOT RESUSCITATE, per his next of kin, who is his sister, clinically patient was not improving, and she decided to place the patient in hospice comfort and initiate comfort care protocol. He was discharged into hospice care on 02/16/2020. Today we're asked to see the patient again on 02/17/2020. In the last 24 hours his mentation has significantly improved, is awake and alert, he remembered Dr. Brown from previously seen him in the pulmonary clinic on an outpatient basis where Dr. Brown treats him for history of COPD obstructive sleep apnea. Appears to be in no acute distress, resting comfortably in bed, we seen the patient on the general medical oncology floor. He is currently on 2 L of oxygen the pulse ox of 99%, hemodynamically stable, breathing is comfortable, nonlabored, he is afebrile. Today's labs have been reviewed, his white count is 5.0, hemoglobin is 8.0, sodium is 139, potassium is 4.7, chloride is 112, CO2 is 21, BUN of 97, creatinine is 5.24. His right leg and culture was positive for Diann, and left leg wound culture was Diann albicans. His blood culture from previous admission was negative. His antibiotics have been restarted with cefepime and Flagyl. Patient is edematous, and he has been started on IV Lasix at 40 mg every 12 hours. Appears stable right now, he is tolerating oral diet. The patient is seen today 02/18/2020 in follow-up on the oncology unit. He is awake and alert in no acute distress. He is maintaining good O2 saturations in the upper 90s on 2 L/m per nasal cannula. He is afebrile. White count 4.8. Hemoglobin 8.2. Platelets 102,000. Sodium 139. Potassium 4.7. Creatinine 5.13. He remains on IV diuretics. Cefepime. Flagyl. The patient is seen today 02/19/2020 in follow-up on the oncology unit. He is currently sitting up in a chair at the bedside. Awake and alert in no acute distress. Maintaining good O2 saturations in the 90s on 2 L/m per nasal cannula. He is afebrile. Hemodynamically stable. White count 4.9. Hemoglobin 8.1. Sodium 131. Potassium 4.7. Creatinine 5.18. Glucose 159. C. difficile screen negative. He remains on cefepime and Flagyl. Remains on IV diuretics. On 02/23/2020 patient was seen again at the request of the nursing staff on the regular medical surgical floor. The nursing staff was concerned about patient being hypothermic, and his temperature was only registering at 93.7F axillary, however on physical examination patient feels warm, including his lower extremities, he is sleepy however she is easily arousable to verbal stimuli, and he is able to provide simple answers. We'll obtain rectal temp, blood pressures 124/79, no worsening shortness of breath. He is on 3 L of oxygen his pulse ox is 95%, today's chest x-ray shows cardiomegaly, CHF with interstitial pulmonary edema, suspect small pleural effusions, patient is scheduled for hemodialysis catheter insertion today with Dr. Hernández, and hemodialysis will be initiated. Patient has generalized edema, including upper and lower extremities, Josue catheter is in place and there has been 500 mL of urine in the last 24 hours. No nausea vomiting or diarrhea. Today's labs have been reviewed, showing serum sodium of 140, potassium is 5.2, chloride is 110, CO2 is 18, BUN is 110, and creatinine is 5.9, nephrology is following, anxiety initiate the patient on hem odialysis for severe fluid volume overload the worsening renal function. Patient remains on cefepime for antibiotic coverage, and oral Flagyl. He is on Lasix 80 mg every 12 hours. On 02/24/2020 patient seen in follow-up on general medical surgical floor. Yesterday he had left groin hemodialysis placed, hemodialysis was started and a 2 L of fluid was removed, patient remains on IV Lasix at 80 mg every 12 hours. And he is in -2010 mL over the last 24 hours. Significantly fluid overloaded, a nd upper and lower extremities, abdomen. Mentation seems to be better, patient is awake, he is answering simple questions, he denies any shortness of breath he is on 4 L of oxygen a pulse ox of 100%. Blood pressure is stable 127/72, temperature has improved, with the 96 axillary last night, and this morning oral temperature is 90.4, however this probably inaccurate reading, as the patient is a mouth breather, and physical exam reveals dry and warm skin. Yesterday lactic acid was drawn and sent back normal at 0.8, blood cultures were sent. Lung sounds are clear, diminished at the bases, abdomen is nontender, obese, edematous, no nausea or vomiting. Lower extremities are wrapped, local w ound care is being done per ID service recommendations. Today's labs have been reviewed showing sodium of 140, potassium is 4.9, chloride is 108, CO2 is 17, B1 is 90 and creatinine is 5.36. On 02/25/2020 patient is seen in follow-up on the regular medical surgical floor, he is awake and alert, somewhat slow to respond, but providing simple answers, denies any acute distress, no shortness of breath, he is on 2 L of oxygen with a pulse ox of 96%, hemodynamically stable, normothermic, with a temp of 98.5F, respirations are nonlabored, lung sounds are clear, diminished at the bases, patient is having a hemodialysis treatment again today, his blood dialyzed every day for last 3 days, yesterday he had 3 L of fluid removed, today the posterior removing on 3 L of fluid. His generalized edema is improving, today's labs have been reviewed, showing improving renal function, with the BUN down to 66 and creatinine of 4.28. Blood cultures have shown no growth, he has had no fever or chills. He is receiving local wound care to his lower extremity wounds, ID service is following, antibiotic coverage is in the form of cefepime and Flagyl. He is on oral Lasix 80 mg every 12 hours, he is in -2000 ML fluid balance over the last 24 hours. Overall patient's weight is down by 15 kg in the last few days. On 02/26/2020 patient seen in follow-up on the regular medical surgical floor. Early this morning patient was found to be less responsive, rapid response team was called, blood gas was obtained showing pO2 of 98, pCO2 of 66, and pH of 7.19, consistent with acute respiratory acidosis, patient was placed on beta BiPAP with pressures of 14/7, and FiO2 of 30%. On today's exam patient more arousable, he opens eyes to voice, he is nodding his head yes or no appropriately to verbal questioning, he denies any acute distress, lung sounds reveal a few scattered rhonchi bilaterally, repeat blood gas has been ordered, and it showed pO2 of 103, pCO2 48 and pH of 7.29 improving respiratory acidosis. Patient has been dialyzed every day for last 3 days, he is scheduled for a hemodialysis treatment today, overall fluid balance status is improving, yesterday 3. liters of fluid was removed with dialysis. Generalized edema has improved significantly. Patient has been afebrile, hemodynamically patient is stable, he remains on antibiotics for cefepime and Flagyl for antibiotic coverage for left lower extremity osteomyelitis, ID service is following. Nephrology is following, patient is also receiving IV Lasix at 80 mg every 12 hours, Josue catheter is in place and patient has produced 600 mL and urine output in the last 24 hours. Objective - Vital Signs Vital signs: Vital Signs Temp 97.4 F L 02/26/20 05:00 Pulse 60 02/26/20 05:00 Resp 18 02/26/20 05:00 BP 108/66 02/26/20 05:00 Pulse Ox 96 02/26/20 05:00 Intake & Output 02/25/20 02/26/20 02/26/20 18:59 06:59 18:59 Intake Total 50 Output Total 3950 50 Balance -3950 0 Intake: Intake, IV Titration 50 Amount Cefepime 1 gm In Sodium 50 Chloride 0.9% 50 ml @ 12. 5 mls/hr IVPB Q12HR [facility] Rx#:[id number] Output: Urine 550 50 Hemodialysis 3400 Other: Voiding Method Indwelling Catheter Indwelling Catheter # Bowel Movements 1 - Exam GENERAL EXAM: Drowsy, but arousable to verbal stimuli, 49-year-old morbidly ob alona male patient, on BiPAP support, with pressures of 14 and 7, and FiO2 of 30% resting comfortable in bed, answering questions appropriately HEAD: Normocephalic/atraumatic. EYES: Normal reaction of pupils, left pupil measuring 5 mm, mildly reactive to light, right pupil is 2 mm in diameter reactive. Conjunctiva pink, sclera white. NOSE: Clear with pink turbinates. THROAT: No erythema or exudates. NECK: No masses, no JVD, no thyroid enlargement, no adenopathy. CHEST: No chest wall deformity. Symmetrical expansion. LUNGS: Equal air entry with crackles in the bilateral posterior bases. CVS: Regular rate and rhythm, normal S1 and S2, no gallops, no murmurs, no rubs ABDOMEN: Soft, nontender. No hepatosplenomegaly, normal bowel sounds, no guarding or rigidity. EXTREMITIES: No clubbing, significant edema involving upper and lower extremities, no cyanosis, 2+ pulses and upper and lower extremities. bilateral lower extremities covered with dressings MUSCULOSKELETAL: Muscle strength and tone normal. SPINE: No scoliosis or deformity SKIN: No rashes CENTRAL NERVOUS SYSTEM: Awake and alert, oriented times person, no facial asymmetry - Labs CBC & Chem 7: 02/26/20 06:58 02/26/20 06:58 Labs: Abnormal Lab Results - Last 24 Hours (Table) 02/25/20 02/26/20 02/26/20 Range/Units 20:50 00:45 03:50 RBC (4.30-5.90) m/uL Hgb (13.0-17.5) gm/dL Hct (39.0-53.0) % MCV (80.0-100.0) fL MCHC (31.0-37.0) g/dL RDW (11.5-15.5) % Plt Count (150-450) k/uL Lymphocytes # (Manual) (1.0-4.8) k/uL Myelocytes # (Manual) (0) k/uL Nucleated RBCs (0-0) /100 WBC Macrocytosis ABG pH (7.35-7.45) ABG pCO2 (35-45) mmHg ABG Total CO2 (19-24) mmol/L ABG O2 Saturation (94-97) % Chloride (98-107) mmol/L BUN (9-20) mg/dL Creatinine (0.66-1.25) mg/dL Glucose (74-99) mg/dL POC Glucose (mg/dL) 104 H 111 H 115 H (75-99) mg/dL Calcium (8.4-10.2) mg/dL 02/26/20 02/26/20 02/26/20 Range/Units 05:19 05:45 06:58 RBC 2.54 L (4.30-5.90) m/uL Hgb 7.8 L (13.0-17.5) gm/dL Hct 27.5 L (39.0-53.0) % MCV 108.1 H (80.0-100.0) fL MCHC 28.4 L (31.0-37.0) g/dL RDW 19.0 H (11.5-15.5) % Plt Count 140 L (150-450) k/uL Lymphocytes # (Manual) 0.66 L (1.0-4.8) k/uL Myelocytes # (Manual) 0.18 H (0) k/uL Nucleated RBCs 1 H (0-0) /100 WBC Macrocytosis Marked A ABG pH 7.19 L* (7.35-7.45) ABG pCO2 66 H (35-45) mmHg ABG Total CO2 (19-24) mmol/L ABG O2 Saturation (94-97) % Chloride (98-107) mmol/L BUN (9-20) mg/dL Creatinine (0.66-1.25) mg/dL Glucose (74-99) mg/dL POC Glucose (mg/dL) 110 H (75-99) mg/dL Calcium (8.4-10.2) mg/dL 02/26/20 02/26/20 02/26/20 Range/Units 06:58 07:17 10:43 RBC (4.30-5.90) m/uL Hgb (13.0-17.5) gm/dL Hct (39.0-53.0) % MCV (80.0-100.0) fL MCHC (31.0-37.0) g/dL RDW (11.5-15.5) % Plt Count (150-450) k/uL Lymphocytes # (Manual) (1.0-4.8) k/uL Myelocytes # (Manual) (0) k/uL Nucleated RBCs (0-0) /100 WBC Macrocytosis ABG pH 7.29 L (7.35-7.45) ABG pCO2 48 H (35-45) mmHg ABG Total CO2 25 H (19-24) mmol/L ABG O2 Saturation 97.4 H (94-97) % Chloride 108 H (98-107) mmol/L BUN 41 H (9-20) mg/dL Creatinine 3.58 H (0.66-1.25) mg/dL Glucose 106 H (74-99) mg/dL POC Glucose (mg/dL) 117 H (75-99) mg/dL Calcium 7.4 L (8.4-10.2) mg/dL Microbiology - Last 24 Hours (Table) 02/23/20 13:57 Blood Culture - Preliminary Blood No Growth after 48 hours 02/23/20 14:11 Blood Culture - Preliminary Blood No Growth after 48 hours Assessment and Plan Plan: Assessment: #1. Acute hypoxic and hypercapnic respiratory failure, related to fluid volume overload, interstitial edema, initiated on hemodialysis on 02/24/2020, improving, and FiO2 is down to 2 L, with a pulse ox of 96%. Patient was placed on BiPAP support on 02/26/2020 for decreased responsiveness, and blood gas showed acute hypercapnic respiratory failure, improved on the successive blood gas with BiPAP support, patient will be transferred to the intensive care unit #2. Hypothermia, improved, no hypothermia and the last 24 hours. #3. Worsening acute kidney injury, multifactorial limited to sepsis and ATN, patient was initiated on hemodialysis, renal function is improving #4. Global aphasia and left upper extremity weakness, improved, and patient is verbally responding, and moving both upper extremities #5. Acute encephalopathy, due to sepsis, acute kidney injury, significantly improved #6. Acute non-anion gap metabolic acidosis, related to acute kidney injury #7. Left calcaneus osteomyelitis with sepsis on broad-spectrum antibiotics, status post recent surgical debridement #8. Hypothyroidism, started on levothyroxin #9. Severe pulmonary hypertension with severe tricuspid regurgitation, likely secondary to underlying obstructive sleep apnea and chronic hypoxic respiratory failure #10. recent hospitalization for bilateral leg cellulitis and heel ulcers, status post surgical debridement, patient had a PICC line placed and discharged home on IV antibiotics #11. Diabetes mellitus type 2 with diabeticneuropathy #12. Chronic congestive heart failure, with diastolic dysfunction #13. Previous history of MRSA infection #14. Chronic kidney disease stage III, previously on hemodialysis for short period of time #15. History of sleep apnea, unclear whether or not patient is compliant with CPAP #16. History o degenerative joint disease #17. Medical debility, gait dysfunction Plan: Repeat blood gas has been reviewed, though it has improved patient will probably be better served transferred to the intensive care unit in view of multiple complex issues. The plan is to have a repeat dialysis today, continue with antibiotic per ID service recommendations, close hemodynamic monitoring, CODE ST ATUS again needs to be revisited with the patient's next of kin to get a direction in terms of treatment. Maintain aspiration precautions, monitor level of consciousness. GI and DVT prophylaxis. I performed a history & physical examination of the patient and discussed their management with my nurse practitioner, Mere Byrnes. I reviewed the nurse practitioner's note and agree with the documented findings and plan of care. Lung sounds are positive for diminished breath sounds. The findings and the impression was discussed with the patient. I attest to the documentation by the nurse practitioner. Time with Patient: Less than 30
[2020-02-26 11:59] LABS: Glucose,Whole Blood 102 mg/dL (75-99)
--- NOTE | 2020-02-26 14:36 | P.PN ---
Subjective Patient is seen in follow-up for acute kidney injury. Due to worsening GFR and severe volume overload, he was started on renal replacement therapy on February 22. Tolerated 3.4 L ultrafiltration yesterday. He was transferred to the intensive care unit this morning for close monitoring of respiratory status. Currently on BiPAP. Vital signs are stable. General: The patient appeared well nourished and normally developed. HEENT: Head exam is unremarkable. Neck is without jugular venous distension. LUNGS: Breath sounds decreased. HEART: Rate and Rhythm are regular. ABDOMEN: Soft, nontender. Obese. EXTREMITITES: 2+ edema. Severe scrotal edema noted. Objective - Vital Signs Vital signs: Vital Signs Temp 97.4 F L 02/26/20 05:00 Pulse 60 02/26/20 05:00 Resp 18 02/26/20 05:00 BP 108/66 02/26/20 05:00 Pulse Ox 96 02/26/20 05:00 Intake & Output 02/25/20 02/26/20 02/26/20 18:59 06:59 18:59 Intake Total 50 Output Total 3950 50 50 Balance -3950 0 -50 Intake: Intake, IV Titration 50 Amount Cefepime 1 gm In Sodium 50 Chloride 0.9% 50 ml @ 12. 5 mls/hr IVPB Q12HR [facility] Rx#:[id number] Output: Urine 550 50 50 Uretheral (Josue) 50 Hemodialysis 3400 Other: Voiding Method Indwelling Catheter Indwelling Catheter Indwelling Catheter # Bowel Movements 1 - Labs CBC & Chem 7: 02/26/20 06:58 02/26/20 06:58 Labs: Abnormal Lab Results - Last 24 Hours (Table) 02/25/20 02/26/20 02/26/20 Range/Units 20:50 00:45 03:50 RBC (4.30-5.90) m/uL Hgb (13.0-17.5) gm/dL Hct (39.0-53.0) % MCV (80.0-100.0) fL MCHC (31.0-37.0) g/dL RDW (11.5-15.5) % Plt Count (150-450) k/uL Lymphocytes # (Manual) (1.0-4.8) k/uL Myelocytes # (Manual) (0) k/uL Nucleated RBCs (0-0) /100 WBC Macrocytosis ABG pH (7.35-7.45) ABG pCO2 (35-45) mmHg ABG Total CO2 (19-24) mmol/L ABG O2 Saturation (94-97) % Chloride (98-107) mmol/L BUN (9-20) mg/dL Creatinine (0.66-1.25) mg/dL Glucose (74-99) mg/dL POC Glucose (mg/dL) 104 H 111 H 115 H (75-99) mg/dL Calcium (8.4-10.2) mg/dL 02/26/20 02/26/20 02/26/20 Range/Units 05:19 05:45 06:58 RBC 2.54 L (4.30-5.90) m/uL Hgb 7.8 L (13.0-17.5) gm/dL Hct 27.5 L (39.0-53.0) % MCV 108.1 H (80.0-100.0) fL MCHC 28.4 L (31.0-37.0) g/dL RDW 19.0 H (11.5-15.5) % Plt Count 140 L (150-450) k/uL Lymphocytes # (Manual) 0.66 L (1.0-4.8) k/uL Myelocytes # (Manual) 0.18 H (0) k/uL Nucleated RBCs 1 H (0-0) /100 WBC Macrocytosis Marked A ABG pH 7.19 L* (7.35-7.45) ABG pCO2 66 H (35-45) mmHg ABG Total CO2 (19-24) mmol/L ABG O2 Saturation (94-97) % Chloride (98-107) mmol/L BUN (9-20) mg/dL Creatinine (0.66-1.25) mg/dL Glucose (74-99) mg/dL POC Glucose (mg/dL) 110 H (75-99) mg/dL Calcium (8.4-10.2) mg/dL 02/26/20 02/26/20 02/26/20 Range/Units 06:58 07:17 10:43 RBC (4.30-5.90) m/uL Hgb (13.0-17.5) gm/dL Hct (39.0-53.0) % MCV (80.0-100.0) fL MCHC (31.0-37.0) g/dL RDW (11.5-15.5) % Plt Count (150-450) k/uL Lymphocytes # (Manual) (1.0-4.8) k/uL Myelocytes # (Manual) (0) k/uL Nucleated RBCs (0-0) /100 WBC Macrocytosis ABG pH 7.29 L (7.35-7.45) ABG pCO2 48 H (35-45) mmHg ABG Total CO2 25 H (19-24) mmol/L ABG O2 Saturation 97.4 H (94-97) % Chloride 108 H (98-107) mmol/L BUN 41 H (9-20) mg/dL Creatinine 3.58 H (0.66-1.25) mg/dL Glucose 106 H (74-99) mg/dL POC Glucose (mg/dL) 117 H (75-99) mg/dL Calcium 7.4 L (8.4-10.2) mg/dL 02/26/20 Range/Units 11:58 RBC (4.30-5.90) m/uL Hgb (13.0-17.5) gm/dL Hct (39.0-53.0) % MCV (80.0-100.0) fL MCHC (31.0-37.0) g/dL RDW (11.5-15.5) % Plt Count (150-450) k/uL Lymphocytes # (Manual) (1.0-4.8) k/uL Myelocytes # (Manual) (0) k/uL Nucleated RBCs (0-0) /100 WBC Macrocytosis ABG pH (7.35-7.45) ABG pCO2 (35-45) mmHg ABG Total CO2 (19-24) mmol/L ABG O2 Saturation (94-97) % Chloride (98-107) mmol/L BUN (9-20) mg/dL Creatinine (0.66-1.25) mg/dL Glucose (74-99) mg/dL POC Glucose (mg/dL) 102 H (75-99) mg/dL Calcium (8.4-10.2) mg/dL Microbiology - Last 24 Hours (Table) 02/23/20 13:57 Blood Culture - Preliminary Blood No Growth after 48 hours 02/23/20 14:11 Blood Culture - Preliminary Blood No Growth after 48 hours Assessment and Plan Plan: Assessment: 1. Acute kidney injury secondary to ATN secondary to vancomycin toxicity as well as contrast-induced acute kidney injury. Creatinine peaked at 5.99 this admission. Started on hemodialysis on February 22 for severe volume overload. 2. Metabolic acidosis secondary to acute kidney injury maintained on oral sod ium bicarbonate. Expect further improvement postdialysis. Improving. 3. Volume overload. Improving with daily ultrafiltration. 4. Acute on chronic systolic CHF with ejection fraction of 40-45% with severe pulmonary hypertension. 5. Left lower extremity osteomyelitis. Maintained on antibiotics. 6. Chronic kidney disease stage II with baseline creatinine 1-1.1. 7. Diabetes mellitus. 8. Acute hypercapnic respiratory failure. Plan: Continue with daily dialysis for now. Maintain Lasix 80 mg orally twice daily. Continue to monitor for renal recovery. wellness program manager to help set up outpatient dialysis.
--- NOTE | 2020-02-26 15:41 | PN ---
PROGRESS NOTE DATE OF SERVICE: 02/26/2020 REASON FOR FOLLOWUP: Left heel osteomyelitis. INTERVAL HISTORY: Patient is seen on rounds this morning. The patient was afebrile. He was on a BiPAP and slightly lethargic, was not able to provide any history. No vomiting or diarrhea reported by the nursing staff or change in clinical condition. On examination blood pressure 108/66, pulse of 50, temperature 97.4. General description is a middle-aged male, lying in bed in no distress. RESPIRATORY SYSTEM: Unlabored breathing, decreased breath sounds at bases. HEART: S1, S2. Regular rate and rhythm. ABDOMEN: Soft, no tenderness. Legs with swelling, left heel no drainage. LABS: Hemoglobin is 7, white count is 6.0. BUN of 4, creatinine 3.58. DIAGNOSTIC IMPRESSION AND PLAN: Patient with left heel osteomyelitis with previous culture positive for more than a strep and and cefepime to continue. respiratory status possible fluid overload, underlying breathing insufficiency. Continue supportive care. MMODL / IJN: [id number] /
--- NOTE | 2020-02-26 16:06 | P.PN ---
Subjective Progress Note Date: 02/26/20 Principal diagnosis: This 49 years old male with multiple medical problems who was admitted on 02/01 for bilateral leg cellulitis and sepsis, patient history of wound and debridement of the heel and possible osteomyelitis per Bone scan. Patient hospital course was complicated by "stroke which was called on 02/08, patient had global aphasia with negative CT of the brain and CTA of the brain which were nondiagnostic. No MRI could be done because of his body habitus. Patient also found to have severe tricuspid regurgitation and severe pulmonary hypertension. Patient developed acute hypoxic respiratory failure and he was in the ICU treated with BiPAP. Increase intercranial pressure was suspected but the guardian did not approve lumbar puncture to be done, eventually patient was made DO NOT RESUSCITATE and guardian and family opted for no procedure, eventually patient was already accepted by [facility] hospice team , however the last 2 days patient started waking up and he was alert awake and oriented to time place and person, he was short of breath and complaining from pain in his left leg, after discussion with the family and the patient they wanted to revoke hospice care and they want patient to be treated therefore patient will be discharged from hospice care and will be admitted under medicine Currently patient is awake and alert to time, place and person, he no at least [facility] in [place] and it is January 2020, and he noted name of the president troponin Patient is short of breath and he has difficulty finishing his sentences, however he is on 2 L oxygen via nasal cannula with oxygen saturation in 90s. Chest x-ray showing bilateral pulmonary congestion and patient is provided with Lasix 40 mg twice daily. His antibiotics including cefepime and Flagyl resumed and infectious disease were consulted for further recommendation. His creatinine has trended up to 5.24, compared to 1.9 on 02/01, Narcotics Detective team consulted. Also pulmonary team were consulted as they have evaluated him before. Consult has been placed for murray Gr as he is known to the service and has been evaluated by Dr. Mcgraw. Patient was on insulin at home, we'll start him on Levemir 5 units at bedtime plus insulin sliding scale Patient is with Josue catheter 02/18/2020 Patient was sitting in the chair today, he feels gradually improving. He is breathing quietly and he is saturating high 90s ambulatory oxygen via nasal cannula. He denies any specific complaint "chest pain or dyspnea on abdominal pain or nausea vomiting, he has some loose stool but C. diff was negative. He still have pain in his left lower leg secondary to cellulitis and also myelitis of the left heel. His creatinine still on the high side but this is stable, patient continue on a ntibiotics and IV Lasix 02/19/2020 Patient clinically looks the same as yesterday, his breathing quietly on 2 L oxygen via nasal cannula, he still have some dyspnea with difficulty to finish her sentences. However no tachypnea no chest pain, no orthopnea. No abdominal pain, he has some loose bowel movement however C. diff came back negative. CBC is stable. She still has a Josue catheter, however his fluid status looks like not improving as supposed to be, patient may need hemodialysis as per nephrology recommendation. In the meantime continue with Lasix, continue with antibiotics and ID team on the case 02/20/2020 Patient clinically looks the same, he reports less pain in his left heel Nephrology and infectious disease on the case continue with antibiotics, continue with Lasix with possible need for renal replacement therapy 02/21/2020 Patient is with known new symptom, is still breathing quietly with some dyspnea and have difficulty in finishing his sentences probably related to his previous stroke. Exam is not changed and he is saturating 96% on 2 L oxygen a few nasal cannula. He is still on cefepime and I Flagyl for his diabetic left foot infection. Pathology on the case and no order for start hemodialysis so far, it looks like the patient is also reluctant to do that 02/22/2020 Patient is awake, mentally and change. He has low appetite and at times he has some swallowing difficulty. With some cough and sometimes however no worsening in his dyspnea and no chest pain, distal have this slurred or interrupted speech. No abdominal pain, he had some loose bowel movement. His left leg looks improvement and its and dressing currently We'll check his labs today and order chest x-ray for tomorrow. Also we'll ask for swallow evaluation 02/23/2020 Patient today is more lethargic, with no new weakness or numbness or slurred speech, most likely his lethargy from a his renal disease on the top of his infection, patient will need to undergo dialysis. Dialysis catheter placed by vascular surgery. Patient is going for first hemodialysis today. On the second dialysis tomorrow. Nephrology on the case. 02/24/2020 Patient is seen and evaluated in follow-up awake but easily lethargic responding to some simple commands although falls asleep easily. Patient is awaiting to receive hemodialysis as he has been on daily dialysis. Nephrology following closely. Infectious disease also following. Creatinine continues to be elevated and is currently 5.36. Patient is also maintained on IV cefepime along with Flagyl for osteomyelitis of the left foot and will continue at this time. Patient is currently on 4 L of oxygen via nasal cannula and will continue. Chest x-ray today continues to show some pulmonary venous congestion and periHilar infiltrates with mild residual although improving slightly. Patient remains on IV Lasix 80 mg twice daily and will continue at this time. Review of systems: Unable to obtain given patient's current clinical status 02/25/2020 Patient is seen and evaluated in follow-up currently receiving hemodialysis. No acute overnight issues. Patient continues to be extremely lethargic and alert and oriented 1-2. Creatinine today slightly improved at 4.28 with a BUN of 66. Potassium is 4.1 sodium is currently 139. Magnesium is 1.9. Multiple medical consultations following including pulmonary, infectious disease, and nephrology. Patient is maintained on daily dialysis and will continue at this time. Case management also following along with social work making arrangements for ECF placement once stabilized and discharged. Patient will need dialysis in the outpatient setting and awaiting for chair time at [facility]. We'll continue to monitor closely. 02/26/2020 Patient is seen and evaluated in follow-up and patient per nursing staff was difficult to arouse and continues to be extremely lethargic and an A team was called on him and patient was ultimately placed on a BiPAP. Pulmonary following closely and making arrangements and transferring to ICU for close monitoring. Patient is maintained on daily hemodialysis and nephrology following closely. ABGs were done showing pH critically low at 7.19 with a pCO2 of 66 and bicarb of 24. Current potassium today is 3.6 and creatinine is 3.58 with a BUN of 41. Patient will be receiving dialysis again today. Patient is maintained on IV antibiotics and infectious disease is following for left heel osteomyelitis and will continue at this time. Attempted to call mother Tata and left a message to discuss clinical status along with CODE STATUS and awaiting a call back. Case management and social work following as the patient was potentially to be discharged to ECF once stabilized although clinical condition continues to deteriorate. Will attempt to reach mother again. We'll continue monitor closely in the ICU. Objective - Vital Signs Vital signs: Vital Signs Temp 97.4 F L 02/26/20 05:00 Pulse 60 02/26/20 05:00 Resp 18 02/26/20 05:00 BP 108/66 02/26/20 05:00 Pulse Ox 96 02/26/20 05:00 Intake & Output 02/25/20 02/26/20 02/26/20 18:59 06:59 18:59 Intake Total 50 Output Total 3950 50 50 Balance -3950 0 -50 Intake: Intake, IV Titration 50 Amount Cefepime 1 gm In Sodium 50 Chloride 0.9% 50 ml @ 12. 5 mls/hr IVPB Q12HR [facility] Rx#:[id number] Output: Urine 550 50 50 Uretheral (Josue) 50 Hemodialysis 3400 Other: Voiding Method Indwelling Catheter Indwelling Catheter Indwelling Catheter # Bowel Movements 1 - Exam GENERAL: The patient is alert and oriented x0-1, currently maintained on a BiPAP extremely lethargic Morbidly obese HEENT: Pupils are round and equally reacting to light. EOMI. No scleral icterus. No conjunctival pallor. Normocephalic, atraumatic. No pharyngeal erythema. No thyromegaly. CARDIOVASCULAR: S1 and S2 present. No murmurs, rubs, or gallops. PULMONARY: Diminished breath sounds bilaterally with some scattered rhonchi noted. no wheezing or crackles. ABDOMEN: Soft, nontender, nondistended, normoactive bowel sounds. No palpable organomegaly. MUSCULOSKELETAL: No joint swelling or deformity. EXTREMITIES: No cyanosis, clubbing, or pedal edema. Bilateral heel wounds noted with black eschar on the left heel, dressing is in place and overlies edema noted to bilateral lower extremities with Nils wraps applied NEUROLOGICAL: Alert and oriented 0-1, only responding to sternal rub at this time Gross neurological examination did not reveal any focal deficits. Diffusely weak. SKIN: No rashes. no petechiae. - Labs CBC & Chem 7: 02/26/20 06:58 02/26/20 06:58 Labs: Abnormal Lab Results - Last 24 Hours (Table) 02/25/20 02/26/20 02/26/20 Range/Units 20:50 00:45 03:50 RBC (4.30-5.90) m/uL Hgb (13.0-17.5) gm/dL Hct (39.0-53.0) % MCV (80.0-100.0) fL MCHC (31.0-37.0) g/dL RDW (11.5-15.5) % Plt Count (150-450) k/uL Lymphocytes # (Manual) (1.0-4.8) k/uL Myelocytes # (Manual) (0) k/uL Nucleated RBCs (0-0) /100 WBC Macrocytosis ABG pH (7.35-7.45) ABG pCO2 (35-45) mmHg ABG Total CO2 (19-24) mmol/L ABG O2 Saturation (94-97) % Chloride (98-107) mmol/L BUN (9-20) mg/dL Creatinine (0.66-1.25) mg/dL Glucose (74-99) mg/dL POC Glucose (mg/dL) 104 H 111 H 115 H (75-99) mg/dL Calcium (8.4-10.2) mg/dL 02/26/20 02/26/20 02/26/20 Range/Units 05:19 05:45 06:58 RBC 2.54 L (4.30-5.90) m/uL Hgb 7.8 L (13.0-17.5) gm/dL Hct 27.5 L (39.0-53.0) % MCV 108.1 H (80.0-100.0) fL MCHC 28.4 L (31.0-37.0) g/dL RDW 19.0 H (11.5-15.5) % Plt Count 140 L (150-450) k/uL Lymphocytes # (Manual) 0.66 L (1.0-4.8) k/uL Myelocytes # (Manual) 0.18 H (0) k/uL Nucleated RBCs 1 H (0-0) /100 WBC Macrocytosis Marked A ABG pH 7.19 L* (7.35-7.45) ABG pCO2 66 H (35-45) mmHg ABG Total CO2 (19-24) mmol/L ABG O2 Saturation (94-97) % Chloride (98-107) mmol/L BUN (9-20) mg/dL Creatinine (0.66-1.25) mg/dL Glucose (74-99) mg/dL POC Glucose (mg/dL) 110 H (75-99) mg/dL Calcium (8.4-10.2) mg/dL 02/26/20 02/26/20 02/26/20 Range/Units 06:58 07:17 10:43 RBC (4.30-5.90) m/uL Hgb (13.0-17.5) gm/dL Hct (39.0-53.0) % MCV (80.0-100.0) fL MCHC (31.0-37.0) g/dL RDW (11.5-15.5) % Plt Count (150-450) k/uL Lymphocytes # (Manual) (1.0-4.8) k/uL Myelocytes # (Manual) (0) k/uL Nucleated RBCs (0-0) /100 WBC Macrocytosis ABG pH 7.29 L (7.35-7.45) ABG pCO2 48 H (35-45) mmHg ABG Total CO2 25 H (19-24) mmol/L ABG O2 Saturation 97.4 H (94-97) % Chloride 108 H (98-107) mmol/L BUN 41 H (9-20) mg/dL Creatinine 3.58 H (0.66-1.25) mg/dL Glucose 106 H (74-99) mg/dL POC Glucose (mg/dL) 117 H (75-99) mg/dL Calcium 7.4 L (8.4-10.2) mg/dL 02/26/20 Range/Units 11:58 RBC (4.30-5.90) m/uL Hgb (13.0-17.5) gm/dL Hct (39.0-53.0) % MCV (80.0-100.0) fL MCHC (31.0-37.0) g/dL RDW (11.5-15.5) % Plt Count (150-450) k/uL Lymphocytes # (Manual) (1.0-4.8) k/uL Myelocytes # (Manual) (0) k/uL Nucleated RBCs (0-0) /100 WBC Macrocytosis ABG pH (7.35-7.45) ABG pCO2 (35-45) mmHg ABG Total CO2 (19-24) mmol/L ABG O2 Saturation (94-97) % Chloride (98-107) mmol/L BUN (9-20) mg/dL Creatinine (0.66-1.25) mg/dL Glucose (74-99) mg/dL POC Glucose (mg/dL) 102 H (75-99) mg/dL Calcium (8.4-10.2) mg/dL Microbiology - Last 24 Hours (Table) 02/23/20 13:57 Blood Culture - Preliminary Blood No Growth after 48 hours 02/23/20 14:11 Blood Culture - Preliminary Blood No Growth after 48 hours Assessment and Plan Assessment: Bilateral lower extremity cellulitis and osteomyelitis of the left calcaneal bone, with Left heel diabetic ulcer, status post debridement Acute hypoxic respiratory failure, secondary to pulmonary congestion as well as sepsis from his bilateral leg cellulitis and osteomyelitis, and severe pulmonary hypertension, patient placed on a BiPAP this morning Acute kidney injury, currently receiving daily hemodialysis, nephrology following Altered mental status, secondary to metabolic encephalopathy with suspected stroke Anion gap metabolic acidosis Hypothyroidism Acute on chronic Systolic CHF , ejection fraction 45-50% Severe Pulmonary HTN History of Blood in the stool Type 2 diabetes mellitus poorly controlled with hyperglycemia Peripheral neuropathy CKD stage III Obstructive sleep apnea Possible obesity hypoventilation syndrome History of MRSA of the right shoulder Degenerative joint disease Morbid obesity with BMI 47.1 GI prophylaxis: Pepcid DVT prophylaxis: Subcu heparin Plan: Continue current medications, management, and symptomatic treatment. Multiple medical consultations following. Patient currently being transferred to ICU for close monitoring as patient had become more lethargic and in respiratory distress requiring BiPAP. Patient is currently maintained on IV antibiotics and will continue at this time. Nephrology also following and patient is currently maintained on daily hemodialysis. Will repeat a.m. labs and continue to monitor closely. Further recommendations to follow. Case management and social work following this patient will need placement at an ECF in case management also working on chair times for hemodialysis in the outpatient setting. Due to multiple complex medical issues, prognosis is guarded. Attempted to call mother to discuss CODE STATUS and left a message awaiting a phone call back. We'll continue to monitor closely.
[2020-02-26 18:51] LABS: Glucose,Whole Blood 78 mg/dL (75-99)
[2020-02-26] MEDS: INSULIN DETEMIR (LEVEMIR) 100 UNIT/ML SYR SQ SCH (23:42)
[2020-02-26 23:48] LABS: Glucose,Whole Blood 79 mg/dL (75-99)
[2020-02-27] MEDS: metroNIDAZOLE 500 MG TAB PO SCH ×3 (03:55→16:00)
[2020-02-27 05:01] LABS: Anisocytosis Slight; Basophils # (A) 0.1 k/uL (0-0.2); Basophils % (A) 2 %; Eosinophils # (A) 0.3 k/uL (0-0.7); Eosinophils % (A) 6 %; HCT 25.8 % (39.0-53.0); HGB 7.4 gm/dL (13.0-17.5); Hypochromasia Marked; Lymphocytes % (A) 19 %; MCHC 28.6 g/dL (31.0-37.0); MCV 104.8 fL (80.0-100.0); Mean Platelet Volume 10.1; Monocytes # (A) 0.4 k/uL (0-1.0); Monocytes % (A) 8 %; Neutrophils # (A) 3.1 k/uL (1.3-7.7); Neutrophils % (A) 62 %; Platelet Count 128 k/uL (150-450); Poikilocytosis Slight; RBC 2.46 m/uL (4.30-5.90); RDW 18.9 % (11.5-15.5)
[2020-02-27 05:11] LABS: Macrocytosis Marked
[2020-02-27 05:15] LABS: Calcium 7.7 mg/dL (8.4-10.2); Potassium 2.8 mmol/L (3.5-5.1)
[2020-02-27 06:10] LABS: Glucose,Whole Blood 66 mg/dL (75-99)
[2020-02-27] MEDS ORDERED: DEXTROSE 50% SYRINGE 50 ML IVP ONE (06:12)
[2020-02-27] MEDS: INSULIN ASPART (NovoLOG) 100 UNIT/ML VIAL SQ SCH ×4 (06:15→22:34)
[2020-02-27 06:34] LABS: Glucose,Whole Blood 136 mg/dL (75-99)
[2020-02-27] MEDS: POTASSIUM CHLORIDE 20 MEQ in WATER FOR INJECTION 1 100ML.BAG IVPB SCH ×3 (08:17→12:29)
[2020-02-27] MEDS: FUROSEMIDE 10 MG/ML 10 ML VIAL IV SCH ×2 (08:26→22:33)
[2020-02-27] MEDS: HEPARIN SODIUM,PORCINE 5,000 UNIT/ML 1 ML VIAL SQ SCH ×2 (08:27→22:33)
[2020-02-27] MEDS: MULTIVITAMINS, THERA 1 EACH TAB PO SCH (09:27)
[2020-02-27] MEDS: ASPIRIN 81 MG PO SCH (09:27)
[2020-02-27] MEDS: SODIUM BICARBONATE TAB 650 MG TAB PO SCH ×4 (09:27→22:36)
[2020-02-27] MEDS: LEVOTHYROXINE 75 MCG TAB PO SCH (09:28)
[2020-02-27] MEDS: FAMOTIDINE 20 MG TAB PO SCH (09:28)
[2020-02-27] MEDS: carvediloL 12.5 MG TAB PO SCH ×2 (09:28→17:03)
--- NOTE | 2020-02-27 11:01 | P.PN ---
Subjective Patient is seen in follow-up for acute kidney injury. Due to worsening GFR and severe volume overload, he was started on renal replacement therapy on February 22. Tolerated 3.4 L ultrafiltration yesterday. Mentation is better. Oral intake is just fair. Vital signs are stable. General: The patient appeared well nourished and normally developed. HEENT: Head exam is unremarkable. Neck is without jugular venous distension. LUNGS: Breath sounds decreased. HEART: Rate and Rhythm are regular. ABDOMEN: Soft, nontender. Obese. EXTREMITITES: 2+ edema. Scrotal edema noted. Objective - Vital Signs Vital signs: Vital Signs Temp 97.7 F 02/27/20 08:00 Pulse 64 02/27/20 10:00 Resp 24 02/27/20 10:00 BP 131/76 02/27/20 10:00 Pulse Ox 98 02/27/20 10:00 Intake & Output 02/26/20 02/27/20 02/27/20 18:59 06:59 18:59 Intake Total 100 170 140 Output Total 90 3777 135 Balance 10 -3607 5 Weight 122 kg Intake: IV 100 170 40 0.9 100 120 40 Cefepime 1 gm In Sodium 50 Chloride 0.9% 50 ml @ 12. 5 mls/hr IVPB Q12HR [facility] Rx#:[id number] Intake, IV Titration 100 Amount Potassium Chloride 20 meq 100 In Water For Injection 1 100ml.bag @ 50 mls/hr IVPB Q2H [facility] Rx#: [id number] Output: Urine 90 377 135 Uretheral (Josue) 50 Hemodialysis 3400 Other: Voiding Method Indwelling Catheter Indwelling Catheter Indwelling Catheter # Voids 0 # Bowel Movements 2 - Labs CBC & Chem 7: 02/27/20 04:30 02/27/20 04:30 Labs: Abnormal Lab Results - Last 24 Hours (Table) 02/26/20 02/26/20 02/27/20 Range/Units 10:43 11:58 04:30 RBC 2.46 L (4.30-5.90) m/uL Hgb 7.4 L (13.0-17.5) gm/dL Hct 25.8 L (39.0-53.0) % MCV 104.8 H (80.0-100.0) fL MCHC 28.6 L (31.0-37.0) g/dL RDW 18.9 H (11.5-15.5) % Plt Count 128 L (150-450) k/uL Macrocytosis Marked A ABG pH 7.29 L (7.35-7.45) ABG pCO2 48 H (35-45) mmHg ABG Total CO2 25 H (19-24) mmol/L ABG O2 Saturation 97.4 H (94-97) % Sodium (137-145) mmol/L Potassium (3.5-5.1) mmol/L BUN (9-20) mg/dL Creatinine (0.66-1.25) mg/dL Glucose (74-99) mg/dL POC Glucose (mg/dL) 102 H (75-99) mg/dL Calcium (8.4-10.2) mg/dL 02/27/20 02/27/20 02/27/20 Range/Units 04:30 06:07 06:32 RBC (4.30-5.90) m/uL Hgb (13.0-17.5) gm/dL Hct (39.0-53.0) % MCV (80.0-100.0) fL MCHC (31.0-37.0) g/dL RDW (11.5-15.5) % Plt Count (150-450) k/uL Macrocytosis ABG pH (7.35-7.45) ABG pCO2 (35-45) mmHg ABG Total CO2 (19-24) mmol/L ABG O2 Saturation (94-97) % Sodium 136 L (137-145) mmol/L Potassium 2.8 L (3.5-5.1) mmol/L BUN 27 H (9-20) mg/dL Creatinine 2.90 H (0.66-1.25) mg/dL Glucose 61 L (74-99) mg/dL POC Glucose (mg/dL) 66 L 136 H (75-99) mg/dL Calcium 7.7 L (8.4-10.2) mg/dL Microbiology - Last 24 Hours (Table) 02/23/20 13:57 Blood Culture - Preliminary Blood No Growth after 72 hours 02/23/20 14:11 Blood Culture - Preliminary Blood No Growth after 72 hours Assessment and Plan Plan: Assessment: 1. Acute kidney injury secondary to ATN secondary to vancomycin toxicity as well as contrast-induced acute kidney injury. Creatinine peaked at 5.99 this admission. Started on hemodialysis on February 22 for severe volume overload. 2. Metabolic acidosis secondary to acute kidney injury maintained on oral sodium bicarbonate. Expect further improvement postdialysis. Improving. 3. Volume overload. Improving with daily ultrafiltration. 4. Acute on chronic systolic CHF with ejection fraction of 40-45% with severe pulmonary hypertension. 5. Left lower extremity osteomyelitis. Maintained on antibiotics. 6. Chronic kidney disease stage II with baseline creatinine 1-1.1. 7. Diabetes mellitus. 8. Acute hypercapnic respiratory failure. 9. Hypokalemia secondary to diuresis. 10. Anemia of chronic kidney disease. Plan: Continue with daily dialysis for now. Maintain Lasix 80 mg orally twice daily. Continue to monitor for renal recovery. Potassium being replaced. Add Aranesp. Check iron studies.
[2020-02-27 11:32] LABS: Glucose,Whole Blood 80 mg/dL (75-99)
[2020-02-27] MEDS: CEFEPIME 1 GM in SODIUM CHLORIDE 0.9% 50 ML IVPB SCH ×2 (11:44→22:30)
[2020-02-27] MEDS: DARBEPOETIN ALFA 40 MCG/0.4 ML SYRINGE SQ SCH (12:30)
--- NOTE | 2020-02-27 13:01 | P.PN ---
Subjective Progress Note Date: 02/27/20 This is a 49-year-old white male patient that we saw in consultation on 02/11/2020 last week for hypoxic respiratory failure related to sepsis, secondary to left calcaneal osteomyelitis, acute kidney injury, and patient was having neurological abnormalities that included global aphasia, and left upper extremity weakness, with a concern of meningoencephalitis, however LP was not performed because the patient's sister declined any aggressive medical treatment. CT of the brain did not show evidence of aneurysm or acute ischemia. Patient's was treated medically, his breathing was supported with BiPAP, he was receiving broad-spectrum antibiotics for osteomyelitis of the left calcaneus status post debridement. Patient codes status was DO NOT RESUSCITATE, per his next of kin, who is his sister, clinically patient was not improving, and she decided to place the patient in hospice comfort and initiate comfort care protocol. He was discharged into hospice care on 02/16/2020. Today we're asked to see the patient again on 02/17/2020. In the last 24 hours his mentation has significantly improved, is awake and alert, he remembered Dr. Brown from previously seen him in the pulmonary clinic on an outpatient basis where Dr. Brown treats him for history of COPD obstructive sleep apnea. Appears to be in no acute distress, resting comfortably in bed, we seen the patient on the general medical oncology floor. He is currently on 2 L of oxygen the pulse ox of 99%, hemodynamically stable, breathing is comfortable, nonlabored, he is afebrile. Today's labs have been reviewed, his white count is 5.0, hemoglobin is 8.0, sodium is 139, potassium is 4.7, chloride is 112, CO2 is 21, BUN of 97, creatinine is 5.24. His right leg and culture was positive for Diann, and left leg wound culture was Diann albicans. His blood culture from previous admission was negative. His antibiotics have been restarted with cefepime and Flagyl. Patient is edematous, and he has been started on IV Lasix at 40 mg every 12 hours. Appears stable right now, he is tolerating oral diet. The patient is seen today 02/18/2020 in follow-up on the oncology unit. He is awake and alert in no acute distress. He is maintaining good O2 saturations in the upper 90s on 2 L/m per nasal cannula. He is afebrile. White count 4.8. Hemoglobin 8.2. Platelets 102,000. Sodium 139. Potassium 4.7. Creatinine 5.13. He remains on IV diuretics. Cefepime. Flagyl. The patient is seen today 02/19/2020 in follow-up on the oncology unit. He is currently sitting up in a chair at the bedside. Awake and alert in no acute distress. Maintaining good O2 saturations in the 90s on 2 L/m per nasal cannula. He is afebrile. Hemodynamically stable. White count 4.9. Hemoglobin 8.1. Sodium 131. Potassium 4.7. Creatinine 5.18. Glucose 159. C. difficile screen negative. He remains on cefepime and Flagyl. Remains on IV diuretics. On 02/23/2020 patient was seen again at the request of the nursing staff on the regular medical surgical floor. The nursing staff was concerned about patient being hypothermic, and his temperature was only registering at 93.7F axillary, however on physical examination patient feels warm, including his lower extremities, he is sleepy however she is easily arousable to verbal stimuli, and he is able to provide simple answers. We'll obtain rectal temp, blood pressures 124/79, no worsening shortness of breath. He is on 3 L of oxygen his pulse ox is 95%, today's chest x-ray shows cardiomegaly, CHF with interstitial pulmonary edema, suspect small pleural effusions, patient is scheduled for hemodialysis catheter insertion today with Dr. Hernández, and hemodialysis will be initiated. Patient has generalized edema, including upper and lower extremities, Josue catheter is in place and there has been 500 mL of urine in the last 24 hours. No nausea vomiting or diarrhea. Today's labs have been reviewed, showing serum sodium of 140, potassium is 5.2, chloride is 110, CO2 is 18, BUN is 110, and creatinine is 5.9, nephrology is following, anxiety initiate the patient on hemo dialysis for severe fluid volume overload the worsening renal function. Patient remains on cefepime for antibiotic coverage, and oral Flagyl. He is on Lasix 80 mg every 12 hours. On 02/24/2020 patient seen in follow-up on general medical surgical floor. Yesterday he had left groin hemodialysis placed, hemodialysis was started and a 2 L of fluid was removed, patient remains on IV Lasix at 80 mg every 12 hours. And he is in -2010 mL over the last 24 hours. Significantly fluid overloaded, and upper and lower extremities, abdomen. Mentation seems to be better, patient is awake, he is answering simple questions, he denies any shortness of breath he is on 4 L of oxygen a pulse ox of 100%. Blood pressure is stable 127/72, temperature has improved, with the 96 axillary last night, and this morning oral temperature is 90.4, however this probably inaccurate reading, as the patient is a mouth breather, and physical exam reveals dry and warm skin. Yesterday lactic acid was drawn and sent back normal at 0.8, blood cultures were sent. Lung sounds are clear, diminished at the bases, abdomen is nontender, obese, edematous, no nausea or vomiting. Lower extremities are wrapped, local wound care is being done per ID service recommendations. Today's labs have been reviewed showing sodium of 140, potassium is 4.9, chloride is 108, CO2 is 17, B1 is 90 and creatinine is 5.36. On 02/25/2020 patient is seen in follow-up on the regular medical surgical floor, he is awake and alert, somewhat slow to respond, but providing simple answers, denies any acute distress, no shortness of breath, he is on 2 L of oxygen with a pulse ox of 96%, hemodynamically stable, normothermic, with a temp of 98.5F, respirations are nonlabored, lung sounds are clear, diminished at the bases, patient is having a hemodialysis treatment again today, his blood dialyzed every day for last 3 days, yesterday he had 3 L of fluid removed, today the posterior removing on 3 L of fluid. His generalized edema is improving, today's labs have been reviewed, showing improving renal function, with the BUN down to 66 and creatinine of 4.28. Blood cultures have shown no growth, he has had no fever or chills. He is receiving local wound care to his lower extremity wounds, ID service is following, antibiotic coverage is in the form of cefepime and Flagyl. He is on oral Lasix 80 mg every 12 hours, he is in -2000 ML fluid balance over the last 24 hours. Overall patient's weight is down by 15 kg in the last few days. On 02/26/2020 patient seen in follow-up on the regular medical surgical floor. Early this morning patient was found to be less responsive, rapid response team was called, blood gas was obtained showing pO2 of 98, pCO2 of 66, and pH of 7.19, consistent with acute respiratory acidosis, patient was placed on beta BiPAP with pressures of 14/7, and FiO2 of 30%. On today's exam patient more arousable, he opens eyes to voice, he is nodding his head yes or no appropriately to verbal questioning, he denies any acute distress, lung sounds reveal a few scattered rhonchi bilaterally, repeat blood gas has been ordered, and it showed pO2 of 103, pCO2 48 and pH of 7.29 improving respiratory acidosis. Patient has been dialyzed every day for last 3 days, he is scheduled for a hemodialysis treatment today, overall fluid balance status is improving, yesterday 3. liters of fluid was removed with dialysis. Generalized edema has improved significantly. Patient has been afebrile, hemodynamically patient is stable, he remains on antibiotics for cefepime and Flagyl for antibiotic coverage for left lower extremity osteomyelitis, ID service is following. Nephrology is following, patient is also receiving IV Lasix at 80 mg every 12 hours, Josue catheter is in place and patient has produced 600 mL and urine output in the last 24 hours. A 28 2019, the patient is being seen for a follow-up. He is lethargic but she is awake and alert and responsive. He is having hemodialysis this morning. Overnight, he was placed on BiPAP therapy at a pressure of 14/7 cm of water with an FiO2 of 30%. He did quite well in the setting he did not have any major respiratory difficulties. We'll generating tidal volume which was above 800 mL and the patient's ventilation was at 12.3 L. He was taken off the BiPAP this morning and was placed on 3 L of oxygen by nasal cannula. The goal is to do an other ultrafiltration of 3.5 L on today's hemodialysis session. His blood work shows a potassium level of 2.[address] Creatinine is down to 2.9. His body weight is down as the patient is having ultrafiltration. Hemoglobin remains stable at 7.4. He has generalized weakness which is global and there is no focal neurological deficit. The patient remains on IV cefepime and Flagyl.. The patient remains on oral bicarb. The most recent chest x-ray shows small lung volumes. There was a component of pulmonary vessel congestion. This was a limited portable examination an examination somewhat limited due to his morbidly obese body habitus. Objective - Vital Signs Vital signs: Vital Signs Temp 97.9 F 02/27/20 12:00 Pulse 63 02/27/20 12:00 Resp 18 02/27/20 12:00 BP 111/69 02/27/20 12:00 Pulse Ox 99 02/27/20 12:00 Intake & Output 02/26/20 02/27/20 02/27/20 18:59 06:59 18:59 Intake Total 100 170 410 Output Total 90 3777 140 Balance 10 -3607 270 Weight 122 kg 122 kg Intake: IV 100 170 110 0.9 100 120 60 Cefepime 1 gm In Sodium 50 50 Chloride 0.9% 50 ml @ 12. 5 mls/hr IVPB Q12HR [facility] Rx#:[id number] Intake, IV Titration 300 Amount Potassium Chloride 20 meq 300 In Water For Injection 1 100ml.bag @ 50 mls/hr IVPB Q2H [facility] Rx#: [id number] Output: Urine 90 377 140 Uretheral (Josue) 50 Hemodialysis 3400 Other: Voiding Method Indwelling Catheter Indwelling Catheter Indwelling Catheter # Bowel Movements 2 - Exam GENERAL EXAM: Drowsy, but arousable to verbal stimuli, 49-year-old morbidly obese male patient, on BiPAP support, with pressures of 14 and 7, and FiO2 of 30% resting comfortable in bed, answering questions appropriately HEAD: Normocephalic/atraumatic. EYES: Normal reaction of pupils, left pupil measuring 5 mm, mildly reactive to light, right pupil is 2 mm in diameter reactive. Conjunctiva pink, sclera white. NOSE: Clear with pink turbinates. THROAT: No erythema or exudates. NECK: No masses, no JVD, no thyroid enlargement, no adenopathy. CHEST: No chest wall deformity. Symmetrical expansion. LUNGS: Equal air entry with crackles in the bilateral posterior bases. CVS: Regular rate and rhythm, normal S1 and S2, no gallops, no murmurs, no rubs ABDOMEN: Soft, nontender. No hepatosplenomegaly, normal bowel sounds, no guarding or rigidity. EXTREMITIES: No clubbing, significant edema involving upper and lower extremities, no cyanosis, 2+ pulses and upper and lower extremities. bilateral lower extremities covered with dressings MUSCULOSKELETAL: Muscle strength and tone normal. SPINE: No scoliosis or deformity SKIN: No rashes CENTRAL NERVOUS SYSTEM: Awake and alert, oriented times person, no facial asymmetry - Labs CBC & Chem 7: 02/27/20 04:30 02/27/20 04:30 Labs: Abnormal Lab Results - Last 24 Hours (Table) 02/27/20 02/27/20 02/27/20 Range/Units 04:30 04:30 06:07 RBC 2.46 L (4.30-5.90) m/uL Hgb 7.4 L (13.0-17.5) gm/dL Hct 25.8 L (39.0-53.0) % MCV 104.8 H (80.0-100.0) fL MCHC 28.6 L (31.0-37.0) g/dL RDW 18.9 H (11.5-15.5) % Plt Count 128 L (150-450) k/uL Macrocytosis Marked A Sodium 136 L (137-145) mmol/L Potassium 2.8 L (3.5-5.1) mmol/L BUN 27 H (9-20) mg/dL Creatinine 2.90 H (0.66-1.25) mg/dL Glucose 61 L (74-99) mg/dL POC Glucose (mg/dL) 66 L (75-99) mg/dL Calcium 7.7 L (8.4-10.2) mg/dL 02/27/20 Range/Units 06:32 RBC (4.30-5.90) m/uL Hgb (13.0-17.5) gm/dL Hct (39.0-53.0) % MCV (80.0-100.0) fL MCHC (31.0-37.0) g/dL RDW (11.5-15.5) % Plt Count (150-450) k/uL Macrocytosis Sodium (137-145) mmol/L Potassium (3.5-5.1) mmol/L BUN (9-20) mg/dL Creatinine (0.66-1.25) mg/dL Glucose (74-99) mg/dL POC Glucose (mg/dL) 136 H (75-99) mg/dL Calcium (8.4-10.2) mg/dL Microbiology - Last 24 Hours (Table) 02/23/20 13:57 Blood Culture - Preliminary Blood No Growth after 72 hours 02/23/20 14:11 Blood Culture - Preliminary Blood No Growth after 72 hours Assessment and Plan Plan: #1. Acute hypoxic and hypercapnic respiratory failure, related to fluid volume overload, interstitial edema, initiated on hemodialysis on 02/24/2020, and the patient is being supported with BiPAP at a pressure of 14/7 cm of water. The combination of BiPAP and hemodialysis ultrafiltration has optimize his resp iratory status. Chest x-ray shows smaller lung volumes with mild pulmonary vascular congestion. The patient is currently off liters of oxygen by nasal cannula. #2. Hypothermia, improved, no hypothermia and the last 24 hours. #3. Worsening acute kidney injury, multifactorial limited to sepsis and ATN, patient was initiated on hemodialysis, renal function is improving with hemodialysis #4. Global aphasia and left upper extremity weakness, improved, and patient is verbally responding, and moving both upper extremities #5. Acute encephalopathy, due to sepsis, acute kidney injury, significantly improved #6. Acute non-anion gap metabolic acidosis, related to acute kidney injury #7. Left calcaneus osteomyelitis with sepsis on broad-spectrum antibiotics, status post recent surgical debridement #8. Hypothyroidism, started on levothyroxin #9. Severe pulmonary hypertension with severe tricuspid regurgitation, likely secondary to underlying obstructive sleep apnea and chronic hypoxic respiratory failure #10. recent hospitalization for bilateral leg cellulitis and heel ulcers, status post surgical debridement, patient had a PICC line placed and discharged home on IV antibiotics #11. Diabetes mellitus type 2 with diabetic neuropathy #12. Chronic congestive heart failure, with diastolic dysfunction #13. Previous history of MRSA infection #14. Chronic kidney disease stage III, previously on hemodialysis for short period of time #15. History of sleep apnea, unclear whether or not patient is compliant with CPAP #16. History o degenerative joint disease #17. Medical debility, gait dysfunction Plan Continue hemodialysis/ultrafiltration. Continue cefepime and vancomycin and local wound care to the lower extremities. The patient is post surgical debridement and has a PICC line in place BiPAP overnight and the patient can be transient increase of oxygen by nasal cannula Dialysis per nephrology Maintain oxygen above 90% Lasix 80 mg by mouth twice Aranesp for chronic anemia Long-term prognosis poor baseline above-mentioned comorbidities. We'll continue to follow.
--- NOTE | 2020-02-27 14:50 | P.PN ---
Subjective Progress Note Date: 02/27/20 Principal diagnosis: This 49 years old male with multiple medical problems who was admitted on 02/01 for bilateral leg cellulitis and sepsis, patient history of wound and debridement of the heel and possible osteomyelitis per Bone scan. Patient hospital course was complicated by "stroke which was called on 02/08, patient had global aphasia with negative CT of the brain and CTA of the brain which were nondiagnostic. No MRI could be done because of his body habitus. Patient also found to have severe tricuspid regurgitation and severe pulmonary hypertension. Patient developed acute hypoxic respiratory failure and he was in the ICU treated with BiPAP. Increase intercranial pressure was suspected but the guardian did not approve lumbar puncture to be done, eventually patient was made DO NOT RESUSCITATE and guardian and family opted for no procedure, eventually patient was already accepted by [facility] hospice team , however the last 2 days patient started waking up and he was alert awake and oriented to time place and person, he was short of breath and complaining from pain in his left leg, after discussion with the family and the patient they wanted to revoke hospice care and they want patient to be treated therefore patient will be discharged from hospice care and will be admitted under medicine Currently patient is awake and alert to time, place and person, he no at least [facility] in [place] and it is January 2020, and he noted name of the president troponin Patient is short of breath and he has difficulty finishing his sentences, however he is on 2 L oxygen via nasal cannula with oxygen saturation in 90s. Chest x-ray showing bilateral pulmonary congestion and patient is provided with Lasix 40 mg twice daily. His antibiotics including cefepime and Flagyl resumed and infectious disease were consulted for further recommendation. His creatinine has trended up to 5.24, compared to 1.9 on 02/01, [facility] team consulted. Also pulmonary team were consulted as they have evaluated him before. Consult has been placed for murray Gr as he is known to the service and has been evaluated by Dr. Mcgraw. Patient was on insulin at home, we'll start him on Levemir 5 units at bedtime plus insulin sliding scale Patient is with Josue catheter 02/18/2020 Patient was sitting in the chair today, he feels gradually improving. He is breathing quietly and he is saturating high 90s ambulatory oxygen via nasal cannula. He denies any specific complaint "chest pain or dyspnea on abdominal pain or nausea vomiting, he has some loose stool but C. diff was negative. He still have pain in his left lower leg secondary to cellulitis and also myelitis of the left heel. His creatinine still on the high side but this is stable, patient continue on a ntibiotics and IV Lasix 02/19/2020 Patient clinically looks the same as yesterday, his breathing quietly on 2 L oxygen via nasal cannula, he still have some dyspnea with difficulty to finish her sentences. However no tachypnea no chest pain, no orthopnea. No abdominal pain, he has some loose bowel movement however C. diff came back negative. CBC is stable. She still has a Josue catheter, however his fluid status looks like not improving as supposed to be, patient may need hemodialysis as per nephrology recommendation. In the meantime continue with Lasix, continue with antibiotics and ID team on the case 02/20/2020 Patient clinically looks the same, he reports less pain in his left heel Nephrology and infectious disease on the case continue with antibiotics, continue with Lasix with possible need for renal replacement therapy 02/21/2020 Patient is with known new symptom, is still breathing quietly with some dyspnea and have difficulty in finishing his sentences probably related to his previous stroke. Exam is not changed and he is saturating 96% on 2 L oxygen a few nasal cannula. He is still on cefepime and I Flagyl for his diabetic left foot infection. Pathology on the case and no order for start hemodialysis so far, it looks like the patient is also reluctant to do that 02/22/2020 Patient is awake, mentally and change. He has low appetite and at times he has some swallowing difficulty. With some cough and sometimes however no worsening in his dyspnea and no chest pain, distal have this slurred or interrupted speech. No abdominal pain, he had some loose bowel movement. His left leg looks improvement and its and dressing currently We'll check his labs today and order chest x-ray for tomorrow. Also we'll ask for swallow evaluation 02/23/2020 Patient today is more lethargic, with no new weakness or numbness or slurred speech, most likely his lethargy from a his renal disease on the top of his infection, patient will need to undergo dialysis. Dialysis catheter placed by vascular surgery. Patient is going for first hemodialysis today. On the second dialysis tomorrow. Nephrology on the case. 02/24/2020 Patient is seen and evaluated in follow-up awake but easily lethargic responding to some simple commands although falls asleep easily. Patient is awaiting to receive hemodialysis as he has been on daily dialysis. Nephrology following closely. Infectious disease also following. Creatinine continues to be elevated and is currently 5.36. Patient is also maintained on IV cefepime along with Flagyl for osteomyelitis of the left foot and will continue at this time. Patient is currently on 4 L of oxygen via nasal cannula and will continue. Chest x-ray today continues to show some pulmonary venous congestion and periHilar infiltrates with mild residual although improving slightly. Patient remains on IV Lasix 80 mg twice daily and will continue at this time. Review of systems: Unable to obtain given patient's current clinical status 02/25/2020 Patient is seen and evaluated in follow-up currently receiving hemodialysis. No acute overnight issues. Patient continues to be extremely lethargic and alert and oriented 1-2. Creatinine today slightly improved at 4.28 with a BUN of 66. Potassium is 4.1 sodium is currently 139. Magnesium is 1.9. Multiple medical consultations following including pulmonary, infectious disease, and nephrology. Patient is maintained on daily dialysis and will continue at this time. Case management also following along with social work making arrangements for ECF placement once stabilized and discharged. Patient will need dialysis in the outpatient setting and awaiting for chair [facility] at [facility]. We'll continue to monitor closely. 02/26/2020 Patient is seen and evaluated in follow-up and patient per nursing staff was difficult to arouse and continues to be extremely lethargic and an A team was called on him and patient was ultimately placed on a BiPAP. Pulmonary following closely and making arrangements and transferring to ICU for close monitoring. Patient is maintained on daily hemodialysis and nephrology following closely. ABGs were done showing pH critically low at 7.19 with a pCO2 of 66 and bicarb of 24. Current potassium today is 3.6 and creatinine is 3.58 with a BUN of 41. Patient will be receiving dialysis again today. Patient is maintained on IV antibiotics and infectious disease is following for left heel osteomyelitis and will continue at this time. Attempted to call mother Tata and left a message to discuss clinical status along with CODE STATUS and awaiting a call back. Case management and social work following as the patient was potentially to be discharged to ECF once stabilized although clinical condition continues to deteriorate. Will attempt to reach mother again. We'll continue monitor closely in the ICU. 02/27/2020 Patient is currently seen and evaluated in follow-up and currently remains in the ICU for close monitoring. Currently receiving hemodialysis again today and nephrology following closely. Patient is maintained on 80 mg of IV Lasix twice daily and will continue at this time. Patient is also maintained on IV antib iotics in the form of cefepime and oral Flagyl for left foot infection with osteomyelitis. Infectious disease is following. Patient is currently on 3-4 L of nasal cannula and has been taken off of BiPAP. Patient's CODE STATUS has been addressed and is currently a no code. Creatinine today is 2.90 with a BUN of 27, sodium is 136 and potassium was found to be low at 2.8 and currently being replaced. Patient is maintained on sliding scale and will continue at this time as blood sugars have been on the lower side. Hemoglobin is stable at 7.4 with no active bleeding noted. C. diff testing was done and was negative. Patient is slightly more alert today and able to respond to simple commands although continues to be extremely lethargic. Will continue to monitor closely. Objective - Vital Signs Vital signs: Vital Signs Temp 97.7 F 02/27/20 08:00 Pulse 64 02/27/20 10:00 Resp 24 02/27/20 10:00 BP 131/76 02/27/20 10:00 Pulse Ox 98 02/27/20 10:00 Intake & Output 02/26/20 02/27/20 02/27/20 18:59 06:59 18:59 Intake Total 100 170 140 Output Total 90 3777 135 Balance 10 -3607 5 Weight 122 kg Intake: IV 100 170 40 0.9 100 120 40 Cefepime 1 gm In Sodium 50 Chloride 0.9% 50 ml @ 12. 5 mls/hr IVPB Q12HR ANNEMARIE Rx#:[id number] Intake, IV Titration 100 Amount Potassium Chloride 20 meq 100 In Water For Injection 1 100ml.bag @ 50 mls/hr IVPB Q2H ANNEMARIE Rx#: [id number] Output: Urine 90 377 135 Uretheral (Josue) 50 Hemodialysis 3400 Other: Voiding Method Indwelling Catheter Indwelling Catheter Indwelling Catheter # Voids 0 # Bowel Movements 2 - Exam GENERAL: The patient is alert and oriented x1-2, currently off of BiPAP and on 3 L via nasal cannula, extremely lethargic but arousable. Morbidly obese. Temp is 97.7F, pulse is 64, respirations are 10, blood pressures 126/76, oxygen saturation is 98% on 3 L via nasal cannula HEENT: Pupils are round and equally reacting to light. EOMI. No scleral icterus. No conjunctival pallor. Normocephalic, atraumatic. No pharyngeal erythema. No thyromegaly. CARDIOVASCULAR: S1 and S2 present. No murmurs, rubs, or gallops. PULMONARY: Diminished breath sounds bilaterally with some scattered rhonchi noted. no wheezing or crackles. ABDOMEN: Soft, nontender, obese, nondistended, normoactive bowel sounds. No palpable organomegaly. MUSCULOSKELETAL: No joint swelling or deformity. EXTREMITIES: No cyanosis, clubbing, or pedal edema. Bilateral heel wounds noted with dressings in place and overlies edema noted to bilateral lower extremities with Nils wraps applied NEUROLOGICAL: Alert and oriented 1-2, lethargic, Gross neurological examination did not reveal any focal deficits. Diffusely weak. SKIN: No rashes. no petechiae. - Labs CBC & Chem 7: 02/27/20 04:30 02/27/20 04:30 Labs: Abnormal Lab Results - Last 24 Hours (Table) 02/26/20 02/27/20 02/27/20 Range/Units 11:58 04:30 04:30 RBC 2.46 L (4.30-5.90) m/uL Hgb 7.4 L (13.0-17.5) gm/dL Hct 25.8 L (39.0-53.0) % MCV 104.8 H (80.0-100.0) fL MCHC 28.6 L (31.0-37.0) g/dL RDW 18.9 H (11.5-15.5) % Plt Count 128 L (150-450) k/uL Macrocytosis Marked A Sodium 136 L (137-145) mmol/L Potassium 2.8 L (3.5-5.1) mmol/L BUN 27 H (9-20) mg/dL Creatinine 2.90 H (0.66-1.25) mg/dL Glucose 61 L (74-99) mg/dL POC Glucose (mg/dL) 102 H (75-99) mg/dL Calcium 7.7 L (8.4-10.2) mg/dL 02/27/20 02/27/20 Range/Units 06:07 06:32 RBC (4.30-5.90) m/uL Hgb (13.0-17.5) gm/dL Hct (39.0-53.0) % MCV (80.0-100.0) fL MCHC (31.0-37.0) g/dL RDW (11.5-15.5) % Plt Count (150-450) k/uL Macrocytosis Sodium (137-145) mmol/L Potassium (3.5-5.1) mmol/L BUN (9-20) mg/dL Creatinine (0.66-1.25) mg/dL Glucose (74-99) mg/dL POC Glucose (mg/dL) 66 L 136 H (75-99) mg/dL Calcium (8.4-10.2) mg/dL Microbiology - Last 24 Hours (Table) 02/23/20 13:57 Blood Culture - Preliminary Blood No Growth after 72 hours 02/23/20 14:11 Blood Culture - Preliminary Blood No Growth after 72 hours Assessment and Plan Assessment: Bilateral lower extremity cellulitis and osteomyelitis of the left calcaneal bone, with Left heel diabetic ulcer, status post debridement Acute hypoxic respiratory failure, secondary to pulmonary congestion as well as sepsis from his bilateral leg cellulitis and osteomyelitis, and severe pulmonary hypertension Acute kidney injury, currently receiving daily hemodialysis, nephrology following Altered mental status, secondary to metabolic encephalopathy with suspected stroke Anion gap metabolic acidosis Hypothyroidism Acute on chronic Systolic CHF , ejection fraction 45-50% Severe Pulmonary HTN History of Blood in the stool Type 2 diabetes mellitus poorly controlled with hyperglycemia Peripheral neuropathy CKD stage III Obstructive sleep apnea Possible obesity hypoventilation syndrome History of MRSA of the right shoulder Degenerative joint disease Morbid obesity with BMI 47.1 GI prophylaxis: Pepcid DVT prophylaxis: Subcu heparin No code Plan: Continue current medications, management, and symptomatic treatment. Multiple medical consultations following. Patient currently remains in the ICU being closely monitored. Patient is currently maintained on IV antibiotics and will continue at this time. Nephrology also following and patient is currently maintained on daily hemodialysis. Will repeat a.m. labs and continue to monitor closely. Further recommendations to follow. Case management and social work following this patient will need placement at an ECF in case management also working on chair times for hemodialysis in the outpatient setting. Due to multiple complex medical issues, prognosis is poor and extremely guarded.
--- NOTE | 2020-02-27 16:06 | PN ---
PROGRESS NOTE DATE OF SERVICE: 02/27/2020 REASON FOR FOLLOWUP: Left heel osteomyelitis. INTERVAL HISTORY: Patient was transferred to the ICU yesterday as the patient was getting more acidotic and possible CO2 retention has to be on BiPAP as of this morning. The patient is currently off the BiPAP on oxygen. The patient is more awake, alert. He is breathing comfortably. Denies having any chest pain. No shortness of breath. Occasional cough. No abdominal pain or diarrhea. PHYSICAL EXAMINATION: Blood pressure 105/60 with a pulse of 66. Temperature is 97.2. She is 94% on 3 L nasal cannula. General description is a middle-aged male, lying in bed in no distress. RESPIRATORY SYSTEM: Unlabored breathing, decreased breath sounds in the bases. No wheeze. HEART: S1, S2. Regular rate and rhythm. ABDOMEN: Soft, no tenderness. Left knee is currently dressed up. LABS: Hemoglobin is 7.4, white count of 5.0, BUN of 27, creatinine 2.9. Blood culture has been negative. DIAGNOSTIC IMPRESSION AND PLAN: Patient with left heel osteomyelitis. Previous culture positive for organized anaerobes for the patient currently on cefepime and Flagyl to continue. Subsequent transfer history because of CO2 retention requiring BiPAP. Clinical suspicion of underlying pneumonia. Continue supportive care. MMODL / IJN: [id number] /
[2020-02-27 16:41] LABS: % Iron Saturation 23.35 (15.00-50.00); Ferritin 430.5 ng/mL (22.0-322.0)
[2020-02-27 16:58] LABS: Glucose,Whole Blood 89 mg/dL (75-99)
[2020-02-27] MEDS: POTASSIUM CHLORIDE 10 MEQ in WATER FOR INJECTION 1 100ML.BAG IVPB SCH ×2 (17:11→18:11)
[2020-02-27 22:21] LABS: Glucose,Whole Blood 99 mg/dL (75-99)
[2020-02-27] MEDS: ACETAMINOPHEN TAB 325 MG TAB PO PRN (22:30)
[2020-02-27] MEDS: INSULIN DETEMIR (LEVEMIR) 100 UNIT/ML SYR SQ SCH (22:35)
[2020-02-28] MEDS: metroNIDAZOLE 500 MG TAB PO SCH ×3 (01:13→17:26)
[2020-02-28 06:51] LABS: Glucose,Whole Blood 119 mg/dL (75-99)
[2020-02-28] MEDS: LEVOTHYROXINE 75 MCG TAB PO SCH (06:51)
[2020-02-28] MEDS: carvediloL 12.5 MG TAB PO SCH ×2 (06:51→17:27)
[2020-02-28] MEDS: INSULIN ASPART (NovoLOG) 100 UNIT/ML VIAL SQ SCH ×4 (06:53→22:09)
[2020-02-28 07:03] LABS: Anisocytosis Slight; HCT 24.9 % (39.0-53.0); HGB 7.2 gm/dL (13.0-17.5); Hypochromasia Marked; MCH 30.6 pg (25.0-35.0); MCHC 29.1 g/dL (31.0-37.0); MCV 105.2 fL (80.0-100.0); Macrocytosis Marked; Mean Platelet Volume 9.8; Platelet Count 124 k/uL (150-450); Poikilocytosis Slight; RBC 2.36 m/uL (4.30-5.90)
[2020-02-28 07:16] LABS: Albumin 2.3 g/dL (3.5-5.0); Calcium 7.8 mg/dL (8.4-10.2); Potassium 3.5 mmol/L (3.5-5.1); Total Bilirubin 0.6 mg/dL (0.2-1.3); Total Protein 5.6 g/dL (6.3-8.2)
[2020-02-28 07:30] LABS: Eosinophils # (M) 0.22 k/uL (0-0.7); Lymphocytes # (M) 0.73 k/uL (1.0-4.8); Metamyelocytes # (M) 0.06 k/uL (0); Metamyelocytes % 1 %; Neutrophils # (M) 3.75 k/uL (1.3-7.7); Neutrophils % (M) 67 %; Nucleated Red Blood Cells 4 /100 WBC (0-0); Total Cells Counted 200; WBC 5.6 k/uL (3.8-10.6)
[2020-02-28 07:31] LABS: Polychromasia Present
--- NOTE | 2020-02-28 08:14 | XR ---
EXAMINATION TYPE: XR chest 1V portable DATE OF EXAM: 02/28/2020 Comparison: 02/26/2020 Clinical History: 49 year-old male shortness of breath Findings: Heart remains enlarged. Diffuse interstitial density. More patchy right lower lung opacity. No sizabl e effusion seen. Left PICC tip not clearly seen beyond the left brachiocephalic vein. Old right midcl avicular shaft fracture deformity. Impression: Cardiomegaly. Correlate for CHF with pulmonary vascular congestion. Some right basilar opacity, infil trate versus patchy pulmonary edema remains. Aeration is overall slightly improved from 02/26/2020.
[2020-02-28] MEDS: FAMOTIDINE 20 MG TAB PO SCH (10:58)
[2020-02-28] MEDS: MULTIVITAMINS, THERA 1 EACH TAB PO SCH (10:58)
[2020-02-28] MEDS: ASPIRIN 81 MG PO SCH (10:59)
[2020-02-28] MEDS: HEPARIN SODIUM,PORCINE 5,000 UNIT/ML 1 ML VIAL SQ SCH ×2 (11:00→22:07)
[2020-02-28] MEDS: SODIUM BICARBONATE TAB 650 MG TAB PO SCH ×4 (11:00→22:08)
[2020-02-28] MEDS: FUROSEMIDE 10 MG/ML 10 ML VIAL IV SCH ×2 (11:00→22:07)
--- NOTE | 2020-02-28 11:41 | P.PN ---
Subjective Progress Note Date: 02/28/20 This is a 49-year-old white male patient that we saw in consultation on 02/11/2020 last week for hypoxic respiratory failure related to sepsis, secondary to left calcaneal osteomyelitis, acute kidney injury, and patient was having neurological abnormalities that included global aphasia, and left upper extremity weakness, with a concern of meningoencephalitis, however LP was not performed because the patient's sister declined any aggressive medical treatment. CT of the brain did not show evidence of aneurysm or acute ischemia. Patient's was treated medically, his breathing was supported with BiPAP, he was receiving broad-spectrum antibiotics for osteomyelitis of the left calcaneus status post debridement. Patient codes status was DO NOT RESUSCITATE, per his next of kin, who is his sister, clinically patient was not improving, and she decided to place the patient in hospice comfort and initiate comfort care protocol. He was discharged into hospice care on 02/16/2020. Today we're asked to see the patient again on 02/17/2020. In the last 24 hours his mentation has significantly improved, is awake and alert, he remembered Dr. Brown from previously seen him in the pulmonary clinic on an outpatient basis where Dr. Brown treats him for history of COPD obstructive sleep apnea. Appears to be in no acute distress, resting comfortably in bed, we seen the patient on the general medical oncology floor. He is currently on 2 L of oxygen the pulse ox of 99%, hemodynamically stable, breathing is comfortable, nonlabored, he is afebrile. Today's labs have been reviewed, his white count is 5.0, hemoglobin is 8.0, sodium is 139, potassium is 4.7, chloride is 112, CO2 is 21, BUN of 97, creatinine is 5.24. His right leg and culture was positive for Diann, and left leg wound culture was Diann albicans. His blood culture from previous admission was negative. His antibiotics have been restarted with cefepime and Flagyl. Patient is edematous, and he has been started on IV Lasix at 40 mg every 12 hours. Appears stable right now, he is tolerating oral diet. The patient is seen today 02/18/2020 in follow-up on the oncology unit. He is awake and alert in no acute distress. He is maintaining good O2 saturations in the upper 90s on 2 L/m per nasal cannula. He is afebrile. White count 4.8. Hemoglobin 8.2. Platelets 102,000. Sodium 139. Potassium 4.7. Creatinine 5.13. He remains on IV diuretics. Cefepime. Flagyl. The patient is seen today 02/19/2020 in follow-up on the oncology unit. He is currently sitting up in a chair at the bedside. Awake and alert in no acute distress. Maintaining good O2 saturations in the 90s on 2 L/m per nasal cannula. He is afebrile. Hemodynamically stable. White count 4.9. Hemoglobin 8.1. Sodium 131. Potassium 4.7. Creatinine 5.18. Glucose 159. C. difficile screen negative. He remains on cefepime and Flagyl. Remains on IV diuretics. On 02/23/2020 patient was seen again at the request of the nursing staff on the regular medical surgical floor. The nursing staff was concerned about patient being hypothermic, and his temperature was only registering at 93.7F axillary, however on physical examination patient feels warm, including his lower extremities, he is sleepy however she is easily arousable to verbal stimuli, and he is able to provide simple answers. We'll obtain rectal temp, blood pressures 124/79, no worsening shortness of breath. He is on 3 L of oxygen his pulse ox is 95%, today's chest x-ray shows cardiomegaly, CHF with interstitial pulmonary edema, suspect small pleural effusions, patient is scheduled for hemodialysis catheter insertion today with Dr. Hernández, and hemodialysis will be initiated. Patient has generalized edema, including upper and lower extremities, Josue catheter is in place and there has been 500 mL of urine in the last 24 hours. No nausea vomiting or diarrhea. Today's labs have been reviewed, showing serum sodium of 140, potassium is 5.2, chloride is 110, CO2 is 18, BUN is 110, and creatinine is 5.9, nephrology is following, anxiety initiate the patient on hemo dialysis for severe fluid volume overload the worsening renal function. Patient remains on cefepime for antibiotic coverage, and oral Flagyl. He is on Lasix 80 mg every 12 hours. On 02/24/2020 patient seen in follow-up on general medical surgical floor. Yesterday he had left groin hemodialysis placed, hemodialysis was started and a 2 L of fluid was removed, patient remains on IV Lasix at 80 mg every 12 hours. And he is in -2010 mL over the last 24 hours. Significantly fluid overloaded, and upper and lower extremities, abdomen. Mentation seems to be better, patient is awake, he is answering simple questions, he denies any shortness of breath he is on 4 L of oxygen a pulse ox of 100%. Blood pressure is stable 127/72, temperature has improved, with the 96 axillary last night, and this morning oral temperature is 90.4, however this probably inaccurate reading, as the patient is a mouth breather, and physical exam reveals dry and warm skin. Yesterday lactic acid was drawn and sent back normal at 0.8, blood cultures were sent. Lung sounds are clear, diminished at the bases, abdomen is nontender, obese, edematous, no nausea or vomiting. Lower extremities are wrapped, local wound care is being done per ID service recommendations. Today's labs have been reviewed showing sodium of 140, potassium is 4.9, chloride is 108, CO2 is 17, B1 is 90 and creatinine is 5.36. On 02/25/2020 patient is seen in follow-up on the regular medical surgical floor, he is awake and alert, somewhat slow to respond, but providing simple answers, denies any acute distress, no shortness of breath, he is on 2 L of oxygen with a pulse ox of 96%, hemodynamically stable, normothermic, with a temp of 98.5F, respirations are nonlabored, lung sounds are clear, diminished at the bases, patient is having a hemodialysis treatment again today, his blood dialyzed every day for last 3 days, yesterday he had 3 L of fluid removed, today the posterior removing on 3 L of fluid. His generalized edema is improving, today's labs have been reviewed, showing improving renal function, with the BUN down to 66 and creatinine of 4.28. Blood cultures have shown no growth, he has had no fever or chills. He is receiving local wound care to his lower extremity wounds, ID service is following, antibiotic coverage is in the form of cefepime and Flagyl. He is on oral Lasix 80 mg every 12 hours, he is in -2000 ML fluid balance over the last 24 hours. Overall patient's weight is down by 15 kg in the last few days. On 02/26/2020 patient seen in follow-up on the regular medical surgical floor. Early this morning patient was found to be less responsive, rapid response team was called, blood gas was obtained showing pO2 of 98, pCO2 of 66, and pH of 7.19, consistent with acute respiratory acidosis, patient was placed on beta BiPAP with pressures of 14/7, and FiO2 of 30%. On today's exam patient more arousable, he opens eyes to voice, he is nodding his head yes or no appropriately to verbal questioning, he denies any acute distress, lung sounds reveal a few scattered rhonchi bilaterally, repeat blood gas has been ordered, and it showed pO2 of 103, pCO2 48 and pH of 7.29 improving respiratory acidosis. Patient has been dialyzed every day for last 3 days, he is scheduled for a hemodialysis treatment today, overall fluid balance status is improving, yesterday 3. liters of fluid was removed with dialysis. Generalized edema has improved significantly. Patient has been afebrile, hemodynamically patient is stable, he remains on antibiotics for cefepime and Flagyl for antibiotic coverage for left lower extremity osteomyelitis, ID service is following. Nephrology is following, patient is also receiving IV Lasix at 80 mg every 12 hours, Josue catheter is in place and patient has produced 600 mL and urine output in the last 24 hours. A 28 2019, the patient is being seen for a follow-up. He is lethargic but she is awake and alert and responsive. He is having hemodialysis this morning. Overnight, he was placed on BiPAP therapy at a pressure of 14/7 cm of water with an FiO2 of 30%. He did quite well in the setting he did not have any major respiratory difficulties. We'll generating tidal volume which was above 800 mL and the patient's ventilation was at 12.3 L. He was taken off the BiPAP this morning and was placed on 3 L of oxygen by nasal cannula. The goal is to do an other ultrafiltration of 3.5 L on today's hemodialysis session. His blood work shows a potassium level of 2.[address] Creatinine is down to 2.9. His body weight is down as the patient is having ultrafiltration. Hemoglobin remains stable at 7.4. He has generalized weakness which is global and there is no focal neurological deficit. The patient remains on IV cefepime and Flagyl.. The patient remains on oral bicarb. The most recent chest x-ray shows small lung volumes. There was a component of pulmonary vessel congestion. This was a limited portable examination an examination somewhat limited due to his morbidly obese body habitus. 02/28/2020, I'm seeing the patient for a follow-up. Doing well per no new complaints. Undergoing another session of hemodialysis. Has lost significant amount of weight and he remains in a negative fluid balance and there is improvement in the anasarca and diffuse edema that the patient had earlier. The chest x-ray also showing improvement in volume status and the patient is currently on 2 L of oxygen by nasal cannula and his resting comfortably in bed. He is tolerating the dialysis or the major difficulties through a temporary Vas- Cath in his left groin. He remains also on IV Lasix 80 mg IV push every 12 hours. He is receiving a combination of cefepime and Flagyl regarding his lower extremity wounds. He is awake and alert. No specific complaints otherwise for now. I may consider transferring him out of the intensive care unit once dialysis is completed. The WBC count is at 5.6 with a hemoglobin of 7.2. Creatinine is at 2.65. Objective - Vital Signs Vital signs: Vital Signs Temp 97.6 F 02/28/20 08:00 Pulse 61 02/28/20 10:00 Resp 11 L 02/28/20 10:00 BP 95/64 02/28/20 10:00 Pulse Ox 98 02/28/20 10:00 Intake & Output 02/27/20 02/28/20 02/28/20 18:59 06:59 18:59 Intake Total 670 130.0 90 Output Total 3480 227 70 Balance -2810 -97.0 20 Weight 122 kg 118.7 kg Intake: IV 170 130.0 40 0.9 120 80 40 Cefepime 1 gm In Sodium 50 50.0 Chloride 0.9% 50 ml @ 12. 5 mls/hr IVPB Q12HR [facility] Rx#:[id number] Intake, IV Titration 500 Amount Potassium Chloride 10 meq 200 In Water For Injection 1 100ml.bag @ 100 mls/hr IVPB Q1H [facility] Rx#: [id number] Potassium Chloride 20 meq 300 In Water For Injection 1 100ml.bag @ 50 mls/hr IVPB Q2H [facility] Rx#: [id number] Oral 50 Output: Urine 280 227 70 Hemodialysis 3200 Other: Voiding Method Indwelling Catheter Indwelling Catheter Indwelling Catheter # Bowel Movements 1 1 - Exam GENERAL EXAM: Drowsy, but arousable to verbal stimuli, 49-year-old morbidly obese male patient, the patient is utilizing BiPAP overnight and the patient is currently on 2 L of oxygen by nasal cannula and is responding and is calm and comfortable alert and awake without any significant respiratory distress. HEAD: Normocephalic/atraumatic. EYES: Normal reaction of pupils, left pupil measuring 5 mm, mildly reactive to light, right pupil is 2 mm in diameter reactive. Conjunctiva pink, sclera white. NOSE: Clear with pink turbinates. THROAT: No erythema or exudates. NECK: No masses, no JVD, no thyroid enlargement, no adenopathy. CHEST: No chest wall deformity. Symmetrical expansion. LUNGS: Equal air entry with crackles in the bilateral posterior bases. CVS: Regular rate and rhythm, normal S1 and S2, no gallops, no murmurs, no rubs ABDOMEN: Soft, nontender. No hepatosplenomegaly, normal bowel sounds, no guarding or rigidity. EXTREMITIES: No clubbing, significant edema involving upper and lower extremities, no cyanosis, 2+ pulses and upper and lower extremities. bilateral lower extremities covered with dressings MUSCULOSKELETAL: Muscle strength and tone normal. SPINE: No scoliosis or deformity SKIN: No rashes CENTRAL NERVOUS SYSTEM: Awake and alert, oriented times person, no facial asymmetry - Labs CBC & Chem 7: 02/28/20 06:45 02/28/20 06:45 Labs: Abnormal Lab Results - Last 24 Hours (Table) 02/27/20 02/28/20 02/28/20 Range/Units 04:30 06:45 06:45 RBC 2.36 L (4.30-5.90) m/uL Hgb 7.2 L (13.0-17.5) gm/dL Hct 24.9 L (39.0-53.0) % MCV 105.2 H (80.0-100.0) fL MCHC 29.1 L (31.0-37.0) g/dL RDW 19.0 H (11.5-15.5) % Plt Count 124 L (150-450) k/uL Lymphocytes # (Manual) 0.73 L (1.0-4.8) k/uL Metamyelocytes # (Man) 0.06 H (0) k/uL Nucleated RBCs 4 H (0-0) /100 WBC Macrocytosis Marked A BUN 21 H (9-20) mg/dL Creatinine 2.65 H (0.66-1.25) mg/dL Glucose 107 H (74-99) mg/dL POC Glucose (mg/dL) (75-99) mg/dL Calcium 7.8 L (8.4-10.2) mg/dL Iron 46 L (65-175) ug/dL TIBC 197 L (228-460) ug/dL Ferritin 430.5 H (22.0-322.0) ng/mL Alkaline Phosphatase 218 H (38-126) U/L Total Protein 5.6 L (6.3-8.2) g/dL Albumin 2.3 L (3.5-5.0) g/dL 02/28/20 Range/Units 06:50 RBC (4.30-5.90) m/uL Hgb (13.0-17.5) gm/dL Hct (39.0-53.0) % MCV (80.0-100.0) fL MCHC (31.0-37.0) g/dL RDW (11.5-15.5) % Plt Count (150-450) k/uL Lymphocytes # (Manual) (1.0-4.8) k/uL Metamyelocytes # (Man) (0) k/uL Nucleated RBCs (0-0) /100 WBC Macrocytosis BUN (9-20) mg/dL Creatinine (0.66-1.25) mg/dL Glucose (74-99) mg/dL POC Glucose (mg/dL) 119 H (75-99) mg/dL Calcium (8.4-10.2) mg/dL Iron (65-175) ug/dL TIBC (228-460) ug/dL Ferritin (22.0-322.0) ng/mL Alkaline Phosphatase (38-126) U/L Total Protein (6.3-8.2) g/dL Albumin (3.5-5.0) g/dL Microbiology - Last 24 Hours (Table) 02/23/20 13:57 Blood Culture - Preliminary Blood No Growth after 96 hours 02/23/20 14:11 Blood Culture - Preliminary Blood No Growth after 96 hours Assessment and Plan Plan: #1. Acute hypoxic and hypercapnic respiratory failure, related to fluid volume overload, interstitial edema, initiated on hemodialysis on 02/24/2020, and the patient is being supported with BiPAP at a pressure of 14/7 cm of water. The combination of BiPAP and hemodialysis ultrafiltration has optimize his respiratory status. Patient has undergone daily dialysis with significant improvement in the volume status. On the chest x-ray the patient is still has cardiomegaly and pulmonary vessel congestion. Nevertheless the patient is improved compared to earlier chest x-rays. Oxidation is also improved and the patient is currently on 2 L about 2 by nasal cannula. BiPAP is being utilized only overnight. #2. Hypothermia, recovered #3. Worsening acute kidney injury, multifactorial limited to sepsis and ATN, patient was initiated on hemodialysis, renal function is improving with hemodialysis #4. Global aphasia and left upper extremity weakness, improved, and patient is verbally responding, and moving both upper extremities #5. Acute encephalopathy, due to sepsis, acute kidney injury, significantly improved #6. Acute non-anion gap metabolic acidosis, related to acute kidney injury #7. Left calcaneus osteomyelitis with sepsis on broad-spectrum antibiotics, status post recent surgical debridement #8. Hypothyroidism, started on levothyroxin #9. Severe pulmonary hypertension with severe tricuspid regurgitation, likely secondary to underlying obstructive sleep apnea and chronic hypoxic respiratory failure #10. recent hospitalization for bilateral leg cellulitis and heel ulcers, status post surgical debridement, patient had a PICC line placed and discharged home on IV antibiotics #11. Diabetes mellitus type 2 with diabetic neuropathy #12. Chronic congestive heart failure, with diastolic dysfunction #13. Previous history of MRSA infection #14. Chronic kidney disease stage III, previously on hemodialysis for short period of time #15. History of sleep apnea, unclear whether or not patient is compliant with CPAP #16. History o degenerative joint disease #17. Medical debility, gait dysfunction Plan Continue hemodialysis/ultrafiltration per nephrology as the patient has lost considerable amount of weight and there is improvement in the volume status Continue cefepime and Flagyl and local wound care to the lower extremities. The patient is post surgical debridement and has a PICC line in place BiPAP overnight and oxygen by nasal cannula at 2 L during the day Dialysis per nephrology Maintain oxygen above 90% Lasix 80 mg IV twice daily Aranesp for chronic anemia Long-term prognosis poor baseline above-mentioned comorbidities. We'll continue to follow. Overall condition stable and the patient can be transferred back to medical floor with telemetry privileges.
[2020-02-28] MEDS: CEFEPIME 1 GM in SODIUM CHLORIDE 0.9% 50 ML IVPB SCH ×2 (11:44→22:05)
[2020-02-28 11:56] LABS: Glucose,Whole Blood 112 mg/dL (75-99)
--- NOTE | 2020-02-28 12:06 | PN ---
PROGRESS NOTE Patient is seen for followup for acute kidney injury, currently started on hemodialysis. Patient also had significant volume overload, which is now improving. PHYSICAL EXAMINATION: On examination today, blood pressure was 95/64, heart rate 61 per minute. He is afebrile. Examination of the heart S1, S2. Examination of the lungs, bilateral breath sounds are heard. Abdomen is soft, obese. Exam of lower extremities shows bilateral extremities to be wrapped. [employer] exam grossly intact. LAB: Show sodium 137, potassium 3.5, chloride 107, BUN 21, creatinine 2.65, hemoglobin 7.2 g/dL. ASSESSMENT: 1. Acute kidney injury, acute tubular necrosis, currently oliguric and hemodialysis dependent. The patient has a left femoral catheter. We will continue with the dialysis for now. The patient is scheduled for hemodialysis today. He will likely need to maintain outpatient dialysis as well. 2. Volume overload currently improving. 3. Metabolic acidosis secondary to renal failure, maintained on sodium bicarb, improved with dialysis. 4. Volume overload. 5. Left lower extremity osteomyelitis. 6. Acute hypercapnic respiratory failure. 7. Chronic kidney disease stage 2. Baseline creatinine 1-1.1. 8. History of dialysis dependent acute renal failure about 2-3 months ago. PLAN: Hemodialysis today. Continue with Lasix. Repeat labs in a.m. Avoid nephrotoxic agents. MMODL / IJN: [id number] /
--- NOTE | 2020-02-28 16:23 | PN ---
PROGRESS NOTE DATE OF SERVICE: 02/28/2020 REASON FOR FOLLOWUP: Left heel osteomyelitis and pressure ulcer. INTERVAL HISTORY: Patient is currently afebrile, has been breathing comfortably, currently on nasal cannula oxygen. Denies having any chest pain or cough. No nausea, no vomiting. No abdominal pain or any pain to the left heel. PHYSICAL EXAMINATION: Blood pressure 107/64 with a pulse of 82, temperature of 97.4. He is 98% on 2 L nasal cannula. General description is a middle-aged male lying in bed in no distress. Respiratory system: Unlabored breathing, clear to auscultation anteriorly. Heart S1, S2. Regular rate and rhythm. Abdomen soft, no tenderness. Left heel still has slough tissue and some deep tissue injury. No foul smelling drainage. LABS: Hemoglobin 7.8, white count 5.6, BUN of 21, creatinine is 2.65. DIAGNOSTIC IMPRESSION AND PLAN: Patient with left heel osteomyelitis with stage IV pressure ulcer previously debrided by Dr. Hernández. Wound still has significant amount of slough tissue and some deep tissue injury. May benefit from a repeat debridement for which vascular surgery will be consulted. We will keep the patient on cefepime and Flagyl. [facility] and monitor clinical course closely. MMODL / IJN: [id number] /
[2020-02-28 17:02] LABS: Glucose,Whole Blood 169 mg/dL (75-99)
[2020-02-28 20:34] LABS: Glucose,Whole Blood 156 mg/dL (75-99)
[2020-02-28] MEDS: ACETAMINOPHEN TAB 325 MG TAB PO PRN (22:08)
[2020-02-28] MEDS: INSULIN DETEMIR (LEVEMIR) 100 UNIT/ML SYR SQ SCH (22:09)
[2020-02-29] MEDS: metroNIDAZOLE 500 MG TAB PO SCH ×3 (01:06→16:11)
[2020-02-29 05:49] LABS: Anisocytosis Slight; Basophils # (A) 0.1 k/uL (0-0.2); Basophils % (A) 1 %; Eosinophils # (A) 0.3 k/uL (0-0.7); Eosinophils % (A) 4 %; HCT 27.4 % (39.0-53.0); Hypochromasia Marked; Lymphocytes # (A) 0.9 k/uL (1.0-4.8); Lymphocytes % (A) 14 %; MCH 30.6 pg (25.0-35.0); MCV 105.5 fL (80.0-100.0); Mean Platelet Volume 9.7; Monocytes # (A) 0.4 k/uL (0-1.0); Monocytes % (A) 7 %; Neutrophils # (A) 4.4 k/uL (1.3-7.7); Neutrophils % (A) 70 %; Platelet Count 121 k/uL (150-450); Poikilocytosis Slight; RDW 18.7 % (11.5-15.5); WBC 6.3 k/uL (3.8-10.6)
[2020-02-29 05:53] LABS: Macrocytosis Marked
[2020-02-29 05:56] LABS: Albumin 2.3 g/dL (3.5-5.0); Calcium 7.9 mg/dL (8.4-10.2); Potassium 3.7 mmol/L (3.5-5.1); Total Bilirubin 0.6 mg/dL (0.2-1.3); Total Protein 5.9 g/dL (6.3-8.2)
[2020-02-29 07:07] LABS: Glucose,Whole Blood 188 mg/dL (75-99)
[2020-02-29] MEDS: carvediloL 12.5 MG TAB PO SCH ×2 (07:15→17:07)
[2020-02-29] MEDS: LEVOTHYROXINE 75 MCG TAB PO SCH (07:15)
[2020-02-29] MEDS: INSULIN ASPART (NovoLOG) 100 UNIT/ML VIAL SQ SCH ×4 (07:16→21:09)
[2020-02-29] MEDS: POTASSIUM CHLORIDE 10 MEQ in WATER FOR INJECTION 1 100ML.BAG IVPB SCH ×2 (07:18→08:17)
--- NOTE | 2020-02-29 07:37 | P.PN ---
Subjective This 49 years old male with multiple medical problems who was admitted on 02/01 for bilateral leg cellulitis and sepsis, patient history of wound and debridement of the heel and possible osteomyelitis per Bone scan. Patient hospital course was complicated by "stroke which was called on 02/08, patient had global aphasia with negative CT of the brain and CTA of the brain which were nondiagnostic. No MRI could be done because of his body habitus. Patient also found to have severe tricuspid regurgitation and severe pulmonary hypertension. Patient developed acute hypoxic respiratory failure and he was in the ICU treated with BiPAP. Increase intercranial pressure was suspected but the guardian did not approve lumbar puncture to be done, eventually patient was made DO NOT RESUSCITATE and guardian and family opted for no procedure, eventually patient was already accepted by [facility] hospice team , however the last 2 days patient started waking up and he was alert awake and oriented to time place and person, he was short of breath and complaining from pain in his left leg, after discussion with the family and the patient they wanted to revoke hospice care and they want patient to be treated therefore patient will be discharged from hospice care and will be admitted under medicine Currently patient is awake and alert to time, place and person, he no at least [facility] in [place] and it is January 2020, and he noted name of the president troponin Patient is short of breath and he has difficulty finishing his sentences, how ever he is on 2 L oxygen via nasal cannula with oxygen saturation in 90s. Chest x-ray showing bilateral pulmonary congestion and patient is provided with Lasix 40 mg twice daily. His antibiotics including cefepime and Flagyl resumed and infectious disease were consulted for further recommendation. His creatinine has trended up to 5.24, compared to 1.9 on 02/01, [employer] team consulted. Also pulmonary team were consulted as they have evaluated him before. Consult has been placed for murray Gr as he is known to the service and has been evaluated by Dr. Mcgraw. Patient was on insulin at home, we'll start him on Levemir 5 units at bedtime plus insulin sliding scale Patient is with Josue catheter 02/28/2020 patient was started on hemodialysis on 02/22 and his swelling has significantly improved, however his speech is still interrupted and lagging when he talks, most likely related to previous stroke rather than shortness of breath He still have wounds and cellulitis in the left lower extremity which is improving. No abdominal pain or chest pain. Nephrology on the case for his acute kidney injury and he is already started on dialysis. Still has diarrhea. Labs reviewed, Vitals stable Physical on cefepime and Flagyl. His sugars controlled on Levemir 5 units plus insulin sliding scale Objective - Vital Signs Vital signs: Vital Signs Temp 98.0 F 02/28/20 21:00 Pulse 74 02/28/20 21:00 Resp 22 02/28/20 21:00 BP 105/60 02/28/20 21:00 Pulse Ox 99 02/28/20 21:00 Intake & Output 02/28/20 02/28/20 02/29/20 06:59 18:59 06:59 Intake Total 130.0 407 80 Output Total 227 3330 75 Balance -97.0 -2923 5 Weight 118.7 kg Intake: IV 130.0 120 80 0.9 80 70 80 Cefepime 1 gm In Sodium 50.0 50 Chloride 0.9% 50 ml @ 12. 5 mls/hr IVPB Q12HR [facility] Rx#:[id number] Oral 287 Output: Urine 227 130 75 Hemodialysis 3200 Other: Voiding Method Indwelling Catheter Indwelling Catheter # Voids 0 # Bowel Movements 1 2 - Exam GENERAL: The patient is alert and oriented x3, not in any acute distress. Morbidly obese HEENT: Pupils are round and equally reacting to light. EOMI. No scleral icterus. No conjunctival pallor. Normocephalic, atraumatic. No pharyngeal erythema. No thyromegaly. CARDIOVASCULAR: S1 and S2 present. No murmurs, rubs, or gallops. PULMONARY: Chest is clear to auscultation, no wheezing or crackles. ABDOMEN: Soft, nontender, nondistended, normoactive bowel sounds. No palpable organomegaly. MUSCULOSKELETAL: No joint swelling or deformity. -EXTREMITIES: No cyanosis, clubbing, or pedal edema. Bilateral heel wounds and especially with black eschar on the left heel, dressing is in place NEUROLOGICAL: Gross neurological examination did not reveal any focal deficits. SKIN: No rashes. no petechiae. - Labs CBC & Chem 7: 02/29/20 05:05 02/29/20 05:05 Labs: Abnormal Lab Results - Last 24 Hours (Table) 02/28/20 02/28/20 02/28/20 Range/Units 06:45 06:45 06:50 RBC 2.36 L (4.30-5.90) m/uL Hgb 7.2 L (13.0-17.5) gm/dL Hct 24.9 L (39.0-53.0) % MCV 105.2 H (80.0-100.0) fL MCHC 29.1 L (31.0-37.0) g/dL RDW 19.0 H (11.5-15.5) % Plt Count 124 L (150-450) k/uL Lymphocytes # (Manual) 0.73 L (1.0-4.8) k/uL Metamyelocytes # (Man) 0.06 H (0) k/uL Nucleated RBCs 4 H (0-0) /100 WBC Macrocytosis Marked A BUN 21 H (9-20) mg/dL Creatinine 2.65 H (0.66-1.25) mg/dL Glucose 107 H (74-99) mg/dL POC Glucose (mg/dL) 119 H (75-99) mg/dL Calcium 7.8 L (8.4-10.2) mg/dL Alkaline Phosphatase 218 H (38-126) U/L Total Protein 5.6 L (6.3-8.2) g/dL Albumin 2.3 L (3.5-5.0) g/dL 02/28/20 02/28/20 02/28/20 Range/Units 11:53 17:01 20:32 RBC (4.30-5.90) m/uL Hgb (13.0-17.5) gm/dL Hct (39.0-53.0) % MCV (80.0-100.0) fL MCHC (31.0-37.0) g/dL RDW (11.5-15.5) % Plt Count (150-450) k/uL Lymphocytes # (Manual) (1.0-4.8) k/uL Metamyelocytes # (Man) (0) k/uL Nucleated RBCs (0-0) /100 WBC Macrocytosis BUN (9-20) mg/dL Creatinine (0.66-1.25) mg/dL Glucose (74-99) mg/dL POC Glucose (mg/dL) 112 H 169 H 156 H (75-99) mg/dL Calcium (8.4-10.2) mg/dL Alkaline Phosphatase (38-126) U/L Total Protein (6.3-8.2) g/dL Albumin (3.5-5.0) g/dL Microbiology - Last 24 Hours (Table) 02/23/20 14:11 Blood Culture - Preliminary Blood No Growth after 120 hours 02/23/20 13:57 Blood Culture - Preliminary Blood No Growth after 120 hours Assessment and Plan Assessment: Bilateral lower extremity cellulitis and osteomyelitis of the left calcaneal bone, with Left heel diabetic ulcer, status post debridement Acute hypoxic hypercapnic respiratory failure, secondary to pulmonary congestion as well as sepsis from his bilateral leg cellulitis and osteomyelitis, and severe pulmonary hypertension Acute kidney injury Altered mental status, secondary to metabolic encephalopathy with suspected stroke, also significantly improved patient is awake and oriented Anion gap metabolic acidosis Hypothyroidism Acute on chronic Systolic CHF , ejection fraction 45-50% Severe Pulmonary HTN History of Blood in the stool Type 2 diabetes mellitus poorly controlled with hyperglycemia Peripheral neuropathy CKD stage III Obstructive sleep apnea Possible obesity hypoventilation syndrome History of MRSA of the right shoulder Degenerative joint disease Morbid obesity with BMI 47.1 Plan: This is a pleasant 49 years old male who presents with left heel diabetic ulcer and osteomyelitis, renal failure and pulmonary congestion. Continue with antibiotics per ID team. Continue with IV Lasix. Nephrology and pulmonary consult. Continue with oxygen as needed, Patient is going for hemodialysis Labs and medication were reviewed.. Continue same treatment. Continue with symptomatic treatment. Resume home medication. Monitor lytes and vitals. DVT and GI prophylaxis. Further recommendations of the clinical course of the patient DVT prophylaxis: Subcutaneous heparin GI Prophylaxis: Pepcid Prognosis is guarded
[2020-02-29] MEDS: CEFEPIME 1 GM in SODIUM CHLORIDE 0.9% 50 ML IVPB SCH ×2 (08:17→21:10)
[2020-02-29] MEDS: HEPARIN SODIUM,PORCINE 5,000 UNIT/ML 1 ML VIAL SQ SCH ×2 (08:19→21:09)
[2020-02-29] MEDS: FUROSEMIDE 10 MG/ML 10 ML VIAL IV SCH ×2 (08:19→21:09)
[2020-02-29] MEDS: FAMOTIDINE 20 MG TAB PO SCH (08:19)
[2020-02-29] MEDS: ASPIRIN 81 MG PO SCH (08:20)
[2020-02-29] MEDS: SODIUM BICARBONATE TAB 650 MG TAB PO SCH ×4 (08:20→21:10)
[2020-02-29] MEDS: MULTIVITAMINS, THERA 1 EACH TAB PO SCH (08:20)
--- NOTE | 2020-02-29 08:20 | XR ---
EXAMINATION TYPE: XR chest 1V portable DATE OF EXAM: 02/29/2020 COMPARISON: 02/28/2020 INDICATION: Shortness of breath TECHNIQUE: Single frontal view of the chest is obtained. FINDINGS: The heart size is borderline in size. The pulmonary vasculature is somewhat prominent. Bibasilar infiltrates are present. A small right pleural effusion is present. IMPRESSION: 1. Conical correlation recommended for congestive heart failure
--- NOTE | 2020-02-29 11:11 | P.PN ---
Subjective Progress Note Date: 02/29/20 This is a 49-year-old white male patient that we saw in consultation on 02/11/2020 last week for hypoxic respiratory failure related to sepsis, secondary to left calcaneal osteomyelitis, acute kidney injury, and patient was having neurological abnormalities that included global aphasia, and left upper extremity weakness, with a concern of meningoencephalitis, however LP was not performed because the patient's sister declined any aggressive medical treatment. CT of the brain did not show evidence of aneurysm or acute ischemia. Patient's was treated medically, his breathing was supported with BiPAP, he was receiving broad-spectrum antibiotics for osteomyelitis of the left calcaneus status post debridement. Patient codes status was DO NOT RESUSCITATE, per his next of kin, who is his sister, clinically patient was not improving, and she decided to place the patient in hospice comfort and initiate comfort care protocol. He was discharged into hospice care on 02/16/2020. Today we're asked to see the patient again on 02/17/2020. In the last 24 hours his mentation has significantly improved, is awake and alert, he remembered Dr. Brown from previously seen him in the pulmonary clinic on an outpatient basis where Dr. Brown treats him for history of COPD obstructive sleep apnea. Appears to be in no acute distress, resting comfortably in bed, we seen the patient on the general medical oncology floor. He is currently on 2 L of oxygen the pulse ox of 99%, hemodynamically stable, breathing is comfortable, nonlabored, he is afebrile. Today's labs have been reviewed, his white count is 5.0, hemoglobin is 8.0, sodium is 139, potassium is 4.7, chloride is 112, CO2 is 21, BUN of 97, creatinine is 5.24. His right leg and culture was positive for Diann, and left leg wound culture was Diann albicans. His blood culture from previous admission was negative. His antibiotics have been restarted with cefepime and Flagyl. Patient is edematous, and he has been started on IV Lasix at 40 mg every 12 hours. Appears stable right now, he is tolerating oral diet. The patient is seen today 02/18/2020 in follow-up on the oncology unit. He is awake and alert in no acute distress. He is maintaining good O2 saturations in the upper 90s on 2 L/m per nasal cannula. He is afebrile. White count 4.8. Hemoglobin 8.2. Platelets 102,000. Sodium 139. Potassium 4.7. Creatinine 5.13. He remains on IV diuretics. Cefepime. Flagyl. The patient is seen today 02/19/2020 in follow-up on the oncology unit. He is currently sitting up in a chair at the bedside. Awake and alert in no acute distress. Maintaining good O2 saturations in the 90s on 2 L/m per nasal cannula. He is afebrile. Hemodynamically stable. White count 4.9. Hemoglobin 8.1. Sodium 131. Potassium 4.7. Creatinine 5.18. Glucose 159. C. difficile screen negative. He remains on cefepime and Flagyl. Remains on IV diuretics. On 02/23/2020 patient was seen again at the request of the nursing staff on the regular medical surgical floor. The nursing staff was concerned about patient being hypothermic, and his temperature was only registering at 93.7F axillary, however on physical examination patient feels warm, including his lower extremities, he is sleepy however she is easily arousable to verbal stimuli, and he is able to provide simple answers. We'll obtain rectal temp, blood pressures 124/79, no worsening shortness of breath. He is on 3 L of oxygen his pulse ox is 95%, today's chest x-ray shows cardiomegaly, CHF with interstitial pulmonary edema, suspect small pleural effusions, patient is scheduled for hemodialysis catheter insertion today with Dr. Hernández, and hemodialysis will be initiated. Patient has generalized edema, including upper and lower extremities, Josue catheter is in place and there has been 500 mL of urine in the last 24 hours. No nausea vomiting or diarrhea. Today's labs have been reviewed, showing serum sodium of 140, potassium is 5.2, chloride is 110, CO2 is 18, BUN is 110, and creatinine is 5.9, nephrology is following, anxiety initiate the patient on hemo dialysis for severe fluid volume overload the worsening renal function. Patient remains on cefepime for antibiotic coverage, and oral Flagyl. He is on Lasix 80 mg every 12 hours. On 02/24/2020 patient seen in follow-up on general medical surgical floor. Yesterday he had left groin hemodialysis placed, hemodialysis was started and a 2 L of fluid was removed, patient remains on IV Lasix at 80 mg every 12 hours. And he is in -2010 mL over the last 24 hours. Significantly fluid overloaded, and upper and lower extremities, abdomen. Mentation seems to be better, patient is awake, he is answering simple questions, he denies any shortness of breath he is on 4 L of oxygen a pulse ox of 100%. Blood pressure is stable 127/72, temperature has improved, with the 96 axillary last night, and this morning oral temperature is 90.4, however this probably inaccurate reading, as the patient is a mouth breather, and physical exam reveals dry and warm skin. Yesterday lactic acid was drawn and sent back normal at 0.8, blood cultures were sent. Lung sounds are clear, diminished at the bases, abdomen is nontender, obese, edematous, no nausea or vomiting. Lower extremities are wrapped, local wound care is being done per ID service recommendations. Today's labs have been reviewed showing sodium of 140, potassium is 4.9, chloride is 108, CO2 is 17, B1 is 90 and creatinine is 5.36. On 02/25/2020 patient is seen in follow-up on the regular medical surgical floor, he is awake and alert, somewhat slow to respond, but providing simple answers, denies any acute distress, no shortness of breath, he is on 2 L of oxygen with a pulse ox of 96%, hemodynamically stable, normothermic, with a temp of 98.5F, respirations are nonlabored, lung sounds are clear, diminished at the bases, patient is having a hemodialysis treatment again today, his blood dialyzed every day for last 3 days, yesterday he had 3 L of fluid removed, today the posterior removing on 3 L of fluid. His generalized edema is improving, today's labs have been reviewed, showing improving renal function, with the BUN down to 66 and creatinine of 4.28. Blood cultures have shown no growth, he has had no fever or chills. He is receiving local wound care to his lower extremity wounds, ID service is following, antibiotic coverage is in the form of cefepime and Flagyl. He is on oral Lasix 80 mg every 12 hours, he is in -2000 ML fluid balance over the last 24 hours. Overall patient's weight is down by 15 kg in the last few days. On 02/26/2020 patient seen in follow-up on the regular medical surgical floor. Early this morning patient was found to be less responsive, rapid response team was called, blood gas was obtained showing pO2 of 98, pCO2 of 66, and pH of 7.19, consistent with acute respiratory acidosis, patient was placed on beta BiPAP with pressures of 14/7, and FiO2 of 30%. On today's exam patient more arousable, he opens eyes to voice, he is nodding his head yes or no appropriately to verbal questioning, he denies any acute distress, lung sounds reveal a few scattered rhonchi bilaterally, repeat blood gas has been ordered, and it showed pO2 of 103, pCO2 48 and pH of 7.29 improving respiratory acidosis. Patient has been dialyzed every day for last 3 days, he is scheduled for a hemodialysis treatment today, overall fluid balance status is improving, yesterday 3. liters of fluid was removed with dialysis. Generalized edema has improved significantly. Patient has been afebrile, hemodynamically patient is stable, he remains on antibiotics for cefepime and Flagyl for antibiotic coverage for left lower extremity osteomyelitis, ID service is following. Nephrology is following, patient is also receiving IV Lasix at 80 mg every 12 hours, Josue catheter is in place and patient has produced 600 mL and urine output in the last 24 hours. A 28 2019, the patient is being seen for a follow-up. He is lethargic but she is awake and alert and responsive. He is having hemodialysis this morning. Overnight, he was placed on BiPAP therapy at a pressure of 14/7 cm of water with an FiO2 of 30%. He did quite well in the setting he did not have any major respiratory difficulties. We'll generating tidal volume which was above 800 mL and the patient's ventilation was at 12.3 L. He was taken off the BiPAP this morning and was placed on 3 L of oxygen by nasal cannula. The goal is to do an other ultrafiltration of 3.5 L on today's hemodialysis session. His blood work shows a potassium level of 2.[address] Creatinine is down to 2.9. His body weight is down as the patient is having ultrafiltration. Hemoglobin remains stable at 7.4. He has generalized weakness which is global and there is no focal neurological deficit. The patient remains on IV cefepime and Flagyl.. The patient remains on oral bicarb. The most recent chest x-ray shows small lung volumes. There was a component of pulmonary vessel congestion. This was a limited portable examination an examination somewhat limited due to his morbidly obese body habitus. 02/28/2020, I'm seeing the patient for a follow-up. Doing well per no new complaints. Undergoing another session of hemodialysis. Has lost significant amount of weight and he remains in a negative fluid balance and there is improvement in the anasarca and diffuse edema that the patient had earlier. The chest x-ray also showing improvement in volume status and the patient is currently on 2 L of oxygen by nasal cannula and his resting comfortably in bed. He is tolerating the dialysis or the major difficulties through a temporary Vas- Cath in his left groin. He remains also on IV Lasix 80 mg IV push every 12 hours. He is receiving a combination of cefepime and Flagyl regarding his lower extremity wounds. He is awake and alert. No specific complaints otherwise for now. I may consider transferring him out of the intensive care unit once dialysis is completed. The WBC count is at 5.6 with a hemoglobin of 7.2. Creatinine is at 2.65. A 32,020, the patient doing well. No specific complaints. The only issue for nausea and diarrhea that has evolved over the past 24-48 hours and the patient has a fecal management system in place. He remains on IV cefepime. He remains also on Flagyl. ID is on the case. Stool for C. diff was negative 1. No dialysis today. His last dialysis session was yesterday. He is a negative fluid balance. No signs of any respiratory distress. He is awake and alert. Infectious disease even with this patient and asked for another debridement and/or possible amputation of the left lower extremity based on the extensive disease/wound involving the left leg which seems to be nonsalvageable at this point in time. No altered mentation. No chest pain. No shortness of breath. No aspiration. He is resting comfortably in bed at 2 L of oxygen by nasal cannula. Objective - Vital Signs Vital signs: Vital Signs Temp 98.5 F 02/29/20 05:00 Pulse 76 02/29/20 05:00 Resp 17 02/29/20 05:00 BP 112/69 02/29/20 05:00 Pulse Ox 98 02/29/20 05:00 Intake & Output 02/28/20 02/29/2020 18:59 06:59 18:59 Intake Total 407 210 Output Total 3310 425 Balance -2903 -215 Weight 112.7 kg Intake: IV 120 210 0.9 70 160 Cefepime 1 gm In Sodium 50 50 Chloride 0.9% 50 ml @ 12. 5 mls/hr IVPB Q12HR ANNEM[facility]IE Rx#:[id number] Oral 287 Output: Urine 110 425 Hemodialysis 3200 Other: Voiding Method Indwelling Catheter Indwelling Catheter # Bowel Movements 2 - Exam GENERAL EXAM: Drowsy, but arousable to verbal stimuli, 49-year-old morbidly obese male patient, the patient is utilizing BiPAP overnight and the patient is currently on 2 L of oxygen by nasal cannula and is responding and is calm and comfortable alert and awake without any significant respiratory distress. HEAD: Normocephalic/atraumatic. EYES: Normal reaction of pupils, left pupil measuring 5 mm, mildly reactive to light, right pupil is 2 mm in diameter reactive. Conjunctiva pink, sclera white. NOSE: Clear with pink turbinates. THROAT: No erythema or exudates. NECK: No masses, no JVD, no thyroid enlargement, no adenopathy. CHEST: No chest wall deformity. Symmetrical expansion. LUNGS: Equal air entry with crackles in the bilateral posterior bases. CVS: Regular rate and rhythm, normal S1 and S2, no gallops, no murmurs, no rubs ABDOMEN: Soft, nontender. No hepatosplenomegaly, normal bowel sounds, no guarding or rigidity. EXTREMITIES: No clubbing, significant edema involving upper and lower extremities, no cyanosis, 2+ pulses and upper and lower extremities. bilateral lower extremities covered with dressings MUSCULOSKELETAL: Muscle strength and tone normal. SPINE: No scoliosis or deformity SKIN: No rashes CENTRAL NERVOUS SYSTEM: Awake and alert, oriented times person, no facial asymmetry - Labs CBC & Chem 7: 02/29/20 05:05 02/29/20 05:05 Labs: Abnormal Lab Results - Last 24 Hours (Table) 02/28/20 02/28/20 02/28/20 Range/Units 11:53 17:01 20:32 RBC (4.30-5.90) m/uL Hgb (13.0-17.5) gm/dL Hct (39.0-53.0) % MCV (80.0-100.0) fL MCHC (31.0-37.0) g/dL RDW (11.5-15.5) % Plt Count (150-450) k/uL Lymphocytes # (1.0-4.8) k/uL Macrocytosis Chloride (98-107) mmol/L Creatinine (0.66-1.25) mg/dL Glucose (74-99) mg/dL POC Glucose (mg/dL) 112 H 169 H 156 H (75-99) mg/dL Calcium (8.4-10.2) mg/dL Alkaline Phosphatase (38-126) U/L Total Protein (6.3-8.2) g/dL Albumin (3.5-5.0) g/dL 02/29/20 02/29/20 02/29/20 Range/Units 05:05 05:05 07:05 RBC 2.60 L (4.30-5.90) m/uL Hgb 8.0 L (13.0-17.5) gm/dL Hct 27.4 L (39.0-53.0) % MCV 105.5 H (80.0-100.0) fL MCHC 29.0 L (31.0-37.0) g/dL RDW 18.7 H (11.5-15.5) % Plt Count 121 L (150-450) k/uL Lymphocytes # 0.9 L (1.0-4.8) k/uL Macrocytosis Marked A Chloride 110 H (98-107) mmol/L Creatinine 2.50 H (0.66-1.25) mg/dL Glucose 166 H (74-99) mg/dL POC Glucose (mg/dL) 188 H (75-99) mg/dL Calcium 7.9 L (8.4-10.2) mg/dL Alkaline Phosphatase 219 H (38-126) U/L Total Protein 5.9 L (6.3-8.2) g/dL Albumin 2.3 L (3.5-5.0) g/dL Microbiology - Last 24 Hours (Table) 02/23/20 14:11 Blood Culture - Preliminary Blood No Growth after 120 hours 02/23/20 13:57 Blood Culture - Preliminary Blood No Growth after 120 hours Assessment and Plan Plan: #1. Acute hypoxic and hypercapnic respiratory failure, related to fluid volume overload, interstitial edema, initiated on hemodialysis on 02/24/2020, and the patient was supported with BiPAP and he received daily dialysis until his volume status optimized and the patient is currently on 2 L of oxygen by nasal cannula and his, comfortable. #2. Hypothermia, recovered #3. Worsening acute kidney injury, multifactorial limited to sepsis and ATN, patient was initiated on hemodialysis, renal function is improving with hemodialysis, last hemodialysis session was yesterday #4. Global aphasia and left upper extremity weakness, improved, and patient is verbally responding, and moving both upper extremities #5. Acute encephalopathy, due to sepsis, acute kidney injury, improved and the patient is awake and following commands #6. Acute non-anion gap metabolic acidosis, related to acute kidney injury #7. Left calcaneus osteomyelitis with sepsis on broad-spectrum antibiotics, status post recent surgical debridement, may need to be reevaluated by vascular surgery for possible amputation #8. Hypothyroidism, started on levothyroxin #9. Severe pulmonary hypertension with severe tricuspid regurgitation, likely secondary to underlying obstructive sleep apnea and chronic hypoxic respiratory failure #10. recent hospitalization for bilateral leg cellulitis and heel ulcers, status post surgical debridement, patient had a PICC line placed and discharged home on IV antibiotics #11. Diabetes mellitus type 2 with diabetic neuropathy #12. Chronic congestive heart failure, with diastolic dysfunction #13. Previous history of MRSA infection #14. Chronic kidney disease stage III, previously on hemodialysis for short period of time #15. History of sleep apnea, unclear whether or not patient is compliant with CPAP #16. History o degenerative joint disease #17. Medical debility, gait dysfunction #18 diarrhea, likely antibiotic related Plan Continue hemodialysis/ultrafiltration per nephrology as the patient has lost considerable amount of weight and there is improvement in the volume status, the patient's last hemodialysis session was yesterday Continue cefepime and Flagyl and local wound care to the lower extremities. The patient is post surgical debridement and has a PICC line in place Consider amputation of the left lower extremity below the knee BiPAP overnight and oxygen by nasal cannula to be alternating with oxygen by nasal cannula during the day at 2 L Dialysis per nephrology Maintain oxygen above 90% Lasix 80 mg IV twice daily Aranesp for chronic anemia Long-term prognosis poor baseline above-mentioned comorbidities. We'll continue to follow. Overall condition stable and the patient can be transferred back to medical floor with telemetry privileges.
[2020-02-29 13:29] LABS: Glucose,Whole Blood 184 mg/dL (75-99)
--- NOTE | 2020-02-29 15:10 | PN ---
PROGRESS NOTE Patient is seen for followup for acute kidney injury and volume overload. Currently he is maintained on daily dialysis. The patient had an FMS system placed yesterday. He states he is having significant pain from it. However, he does have some decubitus ulcers. The patient was dialyzed yesterday. He tolerated his treatment well. About 3.2 L of fluid was removed. The patient will be dialyzed again tomorrow. PHYSICAL EXAMINATION: On examination, blood pressure was 114/71, heart rate 71 per minute. He is afebrile. Examination of the heart S1, S2. Examination of the lungs, bilateral breath sounds are heard. Decreased breath sounds at bases. Abdomen is soft, nontender. Examination of lower extremities shows edema 2+ bilaterally. BASKET TURNER exam shows patient is moving all 4 extremities. LABS: Show sodium 139, potassium 3.7, chloride 110, BUN 17, serum creatinine 2.5. Hemoglobin about 8.0 g/dL. ASSESSMENT: 1. Acute kidney injury, acute tubular necrosis, nonoliguric, currently maintained on daily dialysis, mostly for volume overload. Patient has had some urine output, although it is on the lower side about 500 mL for 24 hours. We will continue to maintain him on hemodialysis. The patient will be dialyzed again tomorrow. 2. Volume overload currently improving. 3. Diarrhea with FMS system. Patient complaining of pain and wants the FMS system removed. 4. Acute hypoxic and hypercapnic respiratory failure associated with volume overload, currently improving. 5. Metabolic acidosis, now improved. 6. Left calcaneal osteomyelitis with sepsis, maintained on antibiotics. 7. Severe pulmonary hypertension with severe tricuspid regurgitation. 8. Chronic kidney disease stage 3 with previous creatinine as low as 1.0 mg/dL. 9. History of dialysis dependent acute renal failure about 2-3 months ago. PLAN: Hemodialysis in a.m. Continue with Lasix. MMODL / IJN: [id number] /
[2020-02-29 17:06] LABS: Glucose,Whole Blood 171 mg/dL (75-99)
[2020-02-29 20:58] LABS: Glucose,Whole Blood 165 mg/dL (75-99)
[2020-02-29] MEDS: INSULIN DETEMIR (LEVEMIR) 100 UNIT/ML SYR SQ SCH (21:09)
--- NOTE | 2020-02-29 22:06 | P.PN ---
Subjective This 49 years old male with multiple medical problems who was admitted on 02/01 for bilateral leg cellulitis and sepsis, patient history of wound and debridement of the heel and possible osteomyelitis per Bone scan. Patient hospital course was complicated by "stroke which was called on 02/08, patient had global aphasia with negative CT of the brain and CTA of the brain which were nondiagnostic. No MRI could be done because of his body habitus. Patient also found to have severe tricuspid regurgitation and severe pulmonary hypertension. Patient developed acute hypoxic respiratory failure and he was in the ICU treated with BiPAP. Increase intercranial pressure was suspected but the guardian did not approve lumbar puncture to be done, eventually patient was made DO NOT RESUSCITATE and guardian and family opted for no procedure, eventually patient was already accepted by [facility] hospice team , however the last 2 days patient started waking up and he was alert awake and oriented to time place and person, he was short of breath and complaining from pain in his left leg, after discussion with the family and the patient they wanted to revoke hospice care and they want patient to be treated therefore patient will be discharged from hospice care and will be admitted under medicine Currently patient is awake and alert to time, place and person, he no at least [facility] in [place] and it is January 2020, and he noted name of the president troponin Patient is short of breath and he has difficulty finishing his sentences, how ever he is on 2 L oxygen via nasal cannula with oxygen saturation in 90s. Chest x-ray showing bilateral pulmonary congestion and patient is provided with Lasix 40 mg twice daily. His antibiotics including cefepime and Flagyl resumed and infectious disease were consulted for further recommendation. His creatinine has trended up to 5.24, compared to 1.9 on 02/01, Production Specialist team consulted. Also pulmonary team were consulted as they have evaluated him before. Consult has been placed for murray Gr as he is known to the service and has been evaluated by Dr. Mcgraw. Patient was on insulin at home, we'll start him on Levemir 5 units at bedtime plus insulin sliding scale Patient is with Josue catheter 02/28/2020 patient was started on hemodialysis on 02/22 and his swelling has significantly improved, however his speech is still interrupted and lagging when he talks, most likely related to previous stroke rather than shortness of breath He still have wounds and cellulitis in the left lower extremity which is improving. No abdominal pain or chest pain. Nephrology on the case for his acute kidney injury and he is already started on dialysis. Still has diarrhea. Labs reviewed, Vitals stable Physical on cefepime and Flagyl. His sugars controlled on Levemir 5 units plus insulin sliding scale 02/29/2020 Patient remains in the ICU, he is awake and alert with no dyspnea, no cough or phlegm, no chest pain Still has diarrhea with brown stool, he has rectal tube with backfill already in the morning and needs to be changed He denies abdominal pain, no nausea vomiting and he is tolerating diet well. Patient continued to be on hemodialysis CONSTITUTIONAL: No fever, no malaise, no fatigue. HEENT: No recent visual problems or hearing problems. Denied any sore throat. CARDIOVASCULAR: No orthopnea, PND, no palpitations, no syncope. PULMONARY: No shortness of breath, no cough, no hemoptysis. GASTROINTESTINAL: No diarrhea, no nausea, no vomiting, no abdominal pain. Normoactive bowel sounds. NEUROLOGICAL: No headaches, no weakness, no numbness. Generic Name Dose Route Start Last Admin Trade Name Freq PRN Reason Stop Dose Admin Acetaminophen 650 mg 02/16/20 18:59 02/28/20 22:08 Tylenol Tab PO 650 mg Q6HR PRN Administration Fever and/ or Mild Pain Aspirin 81 mg 02/17/20 09:00 02/29/20 08:20 Aspirin PO 81 mg DAILY ANNEMARIE Administration Carvedilol 12.5 mg 02/16/20 20:00 02/29/20 17:07 Coreg PO 12.5 mg AC-BID ANNEMARIE Administration Darbepoetin Terrence 40 mcg 02/27/20 11:00 02/27/20 12:30 Aranesp SQ 40 mcg Q7D ANNEMARIE Administration Famotidine 20 mg 02/18/20 09:00 02/29/20 08:19 Pepcid PO 20 mg DAILY ANNEMARIE Administration Furosemide 80 mg 02/22/20 21:00 02/29/20 21:09 Lasix IV 80 mg Q12HR ANNEMARIE Administration Heparin Sodium (Porcine) 5,000 unit 02/16/20 21:00 02/29/20 21:09 Heparin SQ 5,000 unit Q12HR ANNEMARIE Administration Cefepime HCl 1 gm/ Sodium 50 mls @ 12.5 mls/hr 02/16/20 21:00 02/29/20 21:10 Chloride IVPB 12.5 mls/hr Q12HR ANNEMARIE Administration Insulin Aspart 0 unit 02/27/20 12:30 02/29/20 21:09 Novolog SQ 1 unit ACHS ANNEMARIE Administration Protocol Insulin Detemir 5 unit 02/17/20 23:00 02/29/20 21:09 Levemir SQ 5 unit HS ANNEMARIE Administration Levothyroxine Sodium 150 mcg 02/17/20 06:30 02/29/20 07:15 Synthroid PO 150 mcg DAILY@0630 ANNEMARIE Administration Metronidazole 500 mg 02/17/20 00:00 02/29/20 16:11 Flagyl PO 500 mg Q8HR ANNEMARIE Administration Miscellaneous Information 1 each 02/23/20 00:36 Potassium Per Protocol MISCELLANE DAILY PRN Per Protocol Protocol Miscellaneous Information 1 each 02/23/20 00:36 Magnesium Per Protocol MISCELLANE DAILY PRN Per Protocol Protocol Multivitamins 1 each 02/17/20 09:00 02/29/20 08:20 Theragran PO 1 each DAILY ANNEMARIE Administration Sodium Bicarbonate 650 mg 02/21/20 18:00 02/29/20 21:10 Sodium Bicarbonate Tab PO 650 mg QID ANNEMARIE Administration Objective - Vital Signs Vital signs: Vital Signs Temp 98.5 F 02/29/20 05:00 Pulse 76 02/29/20 05:00 Resp 17 02/29/20 05:00 BP 112/69 02/29/20 05:00 Pulse Ox 98 02/29/20 05:00 Intake & Output 02/28/20 02/29/20 02/29/20 18:59 06:59 18:59 Intake Total 407 210 Output Total 3310 425 Balance -2903 -215 Weight 112.7 kg Intake: IV 120 210 0.9 70 160 Cefepime 1 gm In Sodium 50 50 Chloride 0.9% 50 ml @ 12. 5 mls/hr IVPB Q12HR [facility] Rx#:[id number] Oral 287 Output: Urine 110 425 Hemodialysis 3200 Other: Voiding Method Indwelling Catheter Indwelling Catheter Indwelling Catheter # Bowel Movements 2 - Exam GENERAL: The patient is alert and oriented x3, not in any acute distress. Morbidly obese HEENT: Pupils are round and equally reacting to light. EOMI. No scleral icterus. No conjunctival pallor. Normocephalic, atraumatic. No pharyngeal erythema. No thyromegaly. CARDIOVASCULAR: S1 and S2 present. No murmurs, rubs, or gallops. PULMONARY: Chest is clear to auscultation, no wheezing or crackles. ABDOMEN: Soft, nontender, nondistended, normoactive bowel sounds. No palpable organomegaly. MUSCULOSKELETAL: No joint swelling or deformity. -EXTREMITIES: No cyanosis, clubbing, or pedal edema. Bilateral heel wounds and especially with black eschar on the left heel, dressing is in place NEUROLOGICAL: Gross neurological examination did not reveal any focal deficits. SKIN: No rashes. no petechiae. - Labs CBC & Chem 7: 02/29/20 05:05 02/29/20 05:05 Labs: Abnormal Lab Results - Last 24 Hours (Table) 02/28/20 02/28/20 02/29/20 Range/Units 17:01 20:32 05:05 RBC 2.60 L (4.30-5.90) m/uL Hgb 8.0 L (13.0-17.5) gm/dL Hct 27.4 L (39.0-53.0) % MCV 105.5 H (80.0-100.0) fL MCHC 29.0 L (31.0-37.0) g/dL RDW 18.7 H (11.5-15.5) % Plt Count 121 L (150-450) k/uL Lymphocytes # 0.9 L (1.0-4.8) k/uL Macrocytosis Marked A Chloride (98-107) mmol/L Creatinine (0.66-1.25) mg/dL Glucose (74-99) mg/dL POC Glucose (mg/dL) 169 H 156 H (75-99) mg/dL Calcium (8.4-10.2) mg/dL Alkaline Phosphatase (38-126) U/L Total Protein (6.3-8.2) g/dL Albumin (3.5-5.0) g/dL 02/29/20 02/29/20 Range/Units 05:05 07:05 RBC (4.30-5.90) m/uL Hgb (13.0-17.5) gm/dL Hct (39.0-53.0) % MCV (80.0-100.0) fL MCHC (31.0-37.0) g/dL RDW (11.5-15.5) % Plt Count (150-450) k/uL Lymphocytes # (1.0-4.8) k/uL Macrocytosis Chloride 110 H (98-107) mmol/L Creatinine 2.50 H (0.66-1.25) mg/dL Glucose 166 H (74-99) mg/dL POC Glucose (mg/dL) 188 H (75-99) mg/dL Calcium 7.9 L (8.4-10.2) mg/dL Alkaline Phosphatase 219 H (38-126) U/L Total Protein 5.9 L (6.3-8.2) g/dL Albumin 2.3 L (3.5-5.0) g/dL Microbiology - Last 24 Hours (Table) 02/23/20 14:11 Blood Culture - Preliminary Blood No Growth after 120 hours 02/23/20 13:57 Blood Culture - Preliminary Blood No Growth after 120 hours Assessment and Plan Assessment: Bilateral lower extremity cellulitis and osteomyelitis of the left calcaneal bone, with Left heel diabetic ulcer, status post debridement Acute hypoxic hypercapnic respiratory failure, secondary to pulmonary congestion as well as sepsis from his bilateral leg cellulitis and osteomyelitis, and severe pulmonary hypertension Acute kidney injury Altered mental status, secondary to metabolic encephalopathy with suspected stroke, also significantly improved patient is awake and oriented Anion gap metabolic acidosis Hypothyroidism Acute on chronic Systolic CHF , ejection fraction 45-50% Severe Pulmonary HTN History of Blood in the stool Type 2 diabetes mellitus poorly controlled with hyperglycemia Peripheral neuropathy CKD stage III Obstructive sleep apnea Possible obesity hypoventilation syndrome History of MRSA of the right shoulder Degenerative joint disease Morbid obesity with BMI 47.1 Plan: This is a pleasant 49 years old male who presents with left heel diabetic ulcer and osteomyelitis, renal failure and pulmonary congestion. Continue with antibiotics per ID team. Continue with IV Lasix. Nephrology and pulmonary consult. Continue with oxygen as needed, Patient is going for hemodialysis Labs and medication were reviewed.. Continue same treatment. Continue with symptomatic treatment. Resume home medication. Monitor lytes and vitals. DVT and GI prophylaxis. Further recommendations of the clinical course of the patient DVT prophylaxis: Subcutaneous heparin GI Prophylaxis: Pepcid Prognosis is guarded
--- NOTE | 2020-03-01 00:27 | PN ---
PROGRESS NOTE DATE OF SERVICE: 02/29/2020 REASON FOR FOLLOWUP: Left knee osteomyelitis. INTERVAL HISTORY: Patient is currently afebrile, has been breathing comfortably. Denies having any chest pain, shortness of breath or cough. No abdominal pain. Has been complaining of some pain in the low back area, but no pain to the left heel. PHYSICAL EXAMINATION: Blood pressure 118/77 with a pulse of 75, temperature 97.8. He is 100% on room air. General description is a middle-aged male lying in bed in no distress. RESPIRATORY SYSTEM: Unlabored breathing, clear to auscultation anteriorly. HEART: S1, S2. Regular rate and rhythm. ABDOMEN: Soft, no tenderness. LABS: Hemoglobin 8, white count 6.3, BUN of 17, creatinine 2.50. Blood culture has been negative. DIAGNOSTIC IMPRESSION AND PLAN: Patient with left heel osteomyelitis with stage IV pressure ulcer. Culture with Morganella, strep and anaerobes for which the patient is currently covered with cefepime and Flagyl, will be continued. Local care with [facility]. May need further debridement. Continue with supportive care. MMODL / IJN: [id number] /
[2020-03-01] MEDS: metroNIDAZOLE 500 MG TAB PO SCH ×4 (01:03→23:50)
[2020-03-01 04:48] LABS: Anisocytosis Slight; Basophils # (A) 0.1 k/uL (0-0.2); Basophils % (A) 1 %; Eosinophils # (A) 0.3 k/uL (0-0.7); Eosinophils % (A) 4 %; HCT 28.7 % (39.0-53.0); HGB 8.3 gm/dL (13.0-17.5); Hypochromasia Marked; Lymphocytes # (A) 1.3 k/uL (1.0-4.8); Lymphocytes % (A) 17 %; MCH 30.7 pg (25.0-35.0); MCHC 28.9 g/dL (31.0-37.0); MCV 106.2 fL (80.0-100.0); Macrocytosis Marked; Mean Platelet Volume 9.7; Monocytes # (A) 0.5 k/uL (0-1.0); Monocytes % (A) 7 %; Neutrophils # (A) 4.9 k/uL (1.3-7.7); Neutrophils % (A) 67 %; Platelet Count 109 k/uL (150-450); Poikilocytosis Slight; RDW 18.7 % (11.5-15.5); WBC 7.3 k/uL (3.8-10.6)
[2020-03-01 05:06] LABS: Potassium 3.7 mmol/L (3.5-5.1)
[2020-03-01 05:07] LABS: Albumin 2.4 g/dL (3.5-5.0); Calcium 8.2 mg/dL (8.4-10.2); Total Bilirubin 0.6 mg/dL (0.2-1.3)
[2020-03-01] MEDS: INSULIN ASPART (NovoLOG) 100 UNIT/ML VIAL SQ SCH ×4 (06:14→20:59)
[2020-03-01] MEDS: carvediloL 12.5 MG TAB PO SCH ×2 (06:20→17:23)
[2020-03-01] MEDS: LEVOTHYROXINE 75 MCG TAB PO SCH (06:20)
[2020-03-01] MEDS: CEFEPIME 1 GM in SODIUM CHLORIDE 0.9% 50 ML IVPB SCH ×2 (10:02→20:59)
[2020-03-01] MEDS: ASPIRIN 81 MG PO SCH (10:02)
[2020-03-01] MEDS: FUROSEMIDE 10 MG/ML 10 ML VIAL IV SCH ×2 (10:03→20:59)
[2020-03-01] MEDS: FAMOTIDINE 20 MG TAB PO SCH (10:03)
[2020-03-01] MEDS: HEPARIN SODIUM,PORCINE 5,000 UNIT/ML 1 ML VIAL SQ SCH ×2 (10:04→20:59)
[2020-03-01] MEDS: MULTIVITAMINS, THERA 1 EACH TAB PO SCH (10:04)
[2020-03-01] MEDS: SODIUM BICARBONATE TAB 650 MG TAB PO SCH ×4 (10:04→20:59)
--- NOTE | 2020-03-01 12:12 | P.PN ---
Subjective This 49 years old male with multiple medical problems who was admitted on 02/01 for bilateral leg cellulitis and sepsis, patient history of wound and debridement of the heel and possible osteomyelitis per Bone scan. Patient hospital course was complicated by "stroke which was called on 02/08, patient had global aphasia with negative CT of the brain and CTA of the brain which were nondiagnostic. No MRI could be done because of his body habitus. Patient also found to have severe tricuspid regurgitation and severe pulmonary hypertension. Patient developed acute hypoxic respiratory failure and he was in the ICU treated with BiPAP. Increase intercranial pressure was suspected but the guardian did not approve lumbar puncture to be done, eventually patient was made DO NOT RESUSCITATE and guardian and family opted for no procedure, eventually patient was already accepted by [facility] hospice team , however the last 2 days patient started waking up and he was alert awake and oriented to time place and person, he was short of breath and complaining from pain in his left leg, after discussion with the family and the patient they wanted to revoke hospice care and they want patient to be treated therefore patient will be discharged from hospice care and will be admitted under medicine Currently patient is awake and alert to time, place and person, he no at least [facility] in [place] and it is January 2020, and he noted name of the president troponin Patient is short of breath and he has difficulty finishing his sentences, how ever he is on 2 L oxygen via nasal cannula with oxygen saturation in 90s. Chest x-ray showing bilateral pulmonary congestion and patient is provided with Lasix 40 mg twice daily. His antibiotics including cefepime and Flagyl resumed and infectious disease were consulted for further recommendation. His creatinine has trended up to 5.24, compared to 1.9 on 02/01, Hooker Operator team consulted. Also pulmonary team were consulted as they have evaluated him before. Consult has been placed for murray Gr as he is known to the service and has been evaluated by Dr. Mcgraw. Patient was on insulin at home, we'll start him on Levemir 5 units at bedtime plus insulin sliding scale Patient is with Josue catheter 02/28/2020 patient was started on hemodialysis on 02/22 and his swelling has significantly improved, however his speech is still interrupted and lagging when he talks, most likely related to previous stroke rather than shortness of breath He still have wounds and cellulitis in the left lower extremity which is improving. No abdominal pain or chest pain. Nephrology on the case for his acute kidney injury and he is already started on dialysis. Still has diarrhea. Labs reviewed, Vitals stable Physical on cefepime and Flagyl. His sugars controlled on Levemir 5 units plus insulin sliding scale 02/29/2020 Patient remains in the ICU, he is awake and alert with no dyspnea, no cough or phlegm, no chest pain Still has diarrhea with brown stool, he has rectal tube with backfill already in the morning and needs to be changed He denies abdominal pain, no nausea vomiting and he is tolerating diet well. Patient continued to be on hemodialysis 03/01/2020 Patient in the ICU, awake and alert, no much change clinically from yesterday. He's afebrile and blood pressure is 111/63. He was hypoxic at 89% on room air this morning, was placed back on 2 L oxygen via nasal cannula. Were un remarkable this morning include a CBC and BMP and liver enzymes, his creatinine is stable at 3.1 and his sugars controlled. He is on Lasix 60 mg IV twice daily We are going to re-consult vascular surgery Dr. Hernández for reevaluation of his left lower extremity for any possible surgical intervention CONSTITUTIONAL: No fever, no malaise, no fatigue. HEENT: No recent visual problems or hearing problems. Denied any sore throat. CARDIOVASCULAR: No orthopnea, PND, no palpitations, no syncope. PULMONARY: No shortness of breath, no cough, no hemoptysis. GASTROINTESTINAL: No diarrhea, no nausea, no vomiting, no abdominal pain. Normoactive bowel sounds. NEUROLOGICAL: No headaches, no weakness, no numbness. Active Medications Generic Name Dose Route Start Last Admin Trade Name Freq PRN Reason Stop Dose Admin Acetaminophen 650 mg 02/16/20 18:59 02/28/20 22:08 Tylenol Tab PO 650 mg Q6HR PRN Administration Fever and/ or Mild Pain Aspirin 81 mg 02/17/20 09:00 03/01/20 10:02 Aspirin PO 81 mg DAILY ANNEMARIE Administration Carvedilol 12.5 mg 02/16/20 20:00 03/01/20 06:20 Coreg PO 12.5 mg AC-BID ANNEMARIE Administration Darbepoetin Terrence 40 mcg 02/27/20 11:00 02/27/20 12:30 Aranesp SQ 40 mcg Q7D ANNEMARIE Administration Famotidine 20 mg 02/18/20 09:00 03/01/20 10:03 Pepcid PO 20 mg DAILY ANNEMARIE Administration Furosemide 60 mg 03/01/20 21:00 Lasix IV Q12HR ANNEMARIE Heparin Sodium (Porcine) 5,000 unit 02/16/20 21:00 03/01/20 10:04 Heparin SQ 5,000 unit Q12HR ANNEMARIE Administration Cefepime HCl 1 gm/ Sodium 50 mls @ 12.5 mls/hr 02/16/20 21:00 03/01/20 10:02 Chloride IVPB 12.5 mls/hr Q12HR ANNEMARIE Administration Insulin Aspart 0 unit 02/27/20 12:30 03/01/20 06:14 Novolog SQ Not Given ACHS [facility] Protocol Insulin Detemir 5 unit 02/17/20 23:00 02/29/20 21:09 Levemir SQ 5 unit HS ANNEMARIE Administration Levothyroxine Sodium 150 mcg 02/17/20 06:30 03/01/20 06:20 Synthroid PO 150 mcg DAILY@0630 ANNEMARIE Administration Metronidazole 500 mg 02/17/20 00:00 03/01/20 10:02 Flagyl PO 500 mg Q8HR ANNEMARIE Administration Miscellaneous Information 1 each 02/23/20 00:36 Potassium Per Protocol MISCELLANE DAILY PRN Per Protocol Protocol Miscellaneous Information 1 each 02/23/20 00:36 Magnesium Per Protocol MISCELLANE DAILY PRN Per Protocol Protocol Multivitamins 1 each 02/17/20 09:00 03/01/20 10:04 Theragran PO 1 each DAILY ANNEMARIE Administration Sodium Bicarbonate 650 mg 02/21/20 18:00 03/01/20 10:04 Sodium Bicarbonate Tab PO 650 mg QID ANNEMARIE Administration Objective - Vital Signs Vital signs: Vital Signs Temp 97.9 F 03/01/20 08:47 Pulse 64 03/01/20 08:47 Resp 21 03/01/20 08:47 BP 111/63 03/01/20 08:47 Pulse Ox 89 L 03/01/20 08:47 Intake & Output 02/29/20 03/01/20 03/01/20 18:59 06:59 18:59 Intake Total 130 110 20 Output Total 150 225 20 Balance -20 -115 0 Weight 110.178 kg 110.178 kg Intake: IV 80 110 20 0.9 80 110 20 Oral 50 Output: Urine 150 225 20 Other: Voiding Method Indwelling Catheter Indwelling Catheter Indwelling Catheter - Exam GENERAL: The patient is alert and oriented x3, not in any acute distress. Morbidly obese HEENT: Pupils are round and equally reacting to light. EOMI. No scleral icterus. No conjunctival pallor. Normocephalic, atraumatic. No pharyngeal erythema. No thyromegaly. CARDIOVASCULAR: S1 and S2 present. No murmurs, rubs, or gallops. PULMONARY: Chest is clear to auscultation, no wheezing or crackles. ABDOMEN: Soft, nontender, nondistended, normoactive bowel sounds. No palpable organomegaly. MUSCULOSKELETAL: No joint swelling or deformity. -EXTREMITIES: No cyanosis, clubbing, or pedal edema. Bilateral heel wounds and especially with black eschar on the left heel, dressing is in place NEUROLOGICAL: Gross neurological examination did not reveal any focal deficits. SKIN: No rashes. no petechiae. - Labs CBC & Chem 7: 03/01/20 04:35 03/01/20 04:35 Labs: Abnormal Lab Results - Last 24 Hours (Table) 02/29/20 02/29/20 02/29/20 Range/Units 13:28 17:04 20:56 RBC (4.30-5.90) m/uL Hgb (13.0-17.5) gm/dL Hct (39.0-53.0) % MCV (80.0-100.0) fL MCHC (31.0-37.0) g/dL RDW (11.5-15.5) % Plt Count (150-450) k/uL Macrocytosis Chloride (98-107) mmol/L BUN (9-20) mg/dL Creatinine (0.66-1.25) mg/dL Glucose (74-99) mg/dL POC Glucose (mg/dL) 184 H 171 H 165 H (75-99) mg/dL Calcium (8.4-10.2) mg/dL Alkaline Phosphatase (38-126) U/L Total Protein (6.3-8.2) g/dL Albumin (3.5-5.0) g/dL 03/01/20 03/01/20 Range/Units 04:35 04:35 RBC 2.70 L (4.30-5.90) m/uL Hgb 8.3 L (13.0-17.5) gm/dL Hct 28.7 L (39.0-53.0) % MCV 106.2 H (80.0-100.0) fL MCHC 28.9 L (31.0-37.0) g/dL RDW 18.7 H (11.5-15.5) % Plt Count 109 L (150-450) k/uL Macrocytosis Marked A Chloride 110 H (98-107) mmol/L BUN 21 H (9-20) mg/dL Creatinine 3.10 H (0.66-1.25) mg/dL Glucose 121 H (74-99) mg/dL POC Glucose (mg/dL) (75-99) mg/dL Calcium 8.2 L (8.4-10.2) mg/dL Alkaline Phosphatase 195 H (38-126) U/L Total Protein 6.0 L (6.3-8.2) g/dL Albumin 2.4 L (3.5-5.0) g/dL Microbiology - Last 24 Hours (Table) 02/23/20 14:11 Blood Culture - Final Blood No Growth after 144 hours 02/23/20 13:57 Blood Culture - Final Blood No Growth after 144 hours Assessment and Plan Assessment: Bilateral lower extremity cellulitis and osteomyelitis of the left calcaneal bone, with Left heel diabetic ulcer, status post debridement Acute hypoxic hypercapnic respiratory failure, secondary to pulmonary congestion as well as sepsis from his bilateral leg cellulitis and osteomyelitis, and severe pulmonary hypertension Acute kidney injury Altered mental status, secondary to metabolic encephalopathy with suspected stroke, also significantly improved patient is awake and oriented Anion gap metabolic acidosis Hypothyroidism Acute on chronic Systolic CHF , ejection fraction 45-50% Severe Pulmonary HTN History of Blood in the stool Type 2 diabetes mellitus poorly controlled with hyperglycemia Peripheral neuropathy CKD stage III Obstructive sleep apnea Possible obesity hypoventilation syndrome History of MRSA of the right shoulder Degenerative joint disease Morbid obesity with BMI 47.1 Plan: This is a pleasant 49 years old male who presents with left heel diabetic ulcer and osteomyelitis, renal failure and pulmonary congestion. Continue with antibiotics per ID team. Continue with IV Lasix. Nephrology and pulmonary consult. Continue with oxygen as needed, Patient is undergoing hemodialysis. Also Labs and medication were reviewed.. Continue same treatment. Continue with symptomatic treatment. Resume home medication. Monitor lytes and vitals. DVT and GI prophylaxis. Further recommendations of the clinical course of the patient DVT prophylaxis: Subcutaneous heparin GI Prophylaxis: Pepcid Prognosis is guarded
[2020-03-01 12:23] LABS: Glucose,Whole Blood 178 mg/dL (75-99)
--- NOTE | 2020-03-01 14:21 | P.PN ---
Subjective Progress Note Date: 03/01/20 Principal diagnosis: Acute hypoxic and hypercapnic respiratory failure secondary to fluid overload/interstitial edema secondary to chronic end-stage renal disease requiring hemodialysis. This is a 49-year-old white male patient that we saw in consultation on 02/11/2020 last week for hypoxic respiratory failure related to sepsis, secondary to left calcaneal osteomyelitis, acute kidney injury, and patient was having neurological abnormalities that included global aphasia, and left upper extremity weakness, with a concern of meningoencephalitis, however LP was not performed because the patient's sister declined any aggressive medical treatment. CT of the brain did not show evidence of aneurysm or acute ischemia. Patient's was treated medically, his breathing was supported with BiPAP, he was receiving broad-spectrum antibiotics for osteomyelitis of the left calcaneus s tatus post debridement. Patient codes status was DO NOT RESUSCITATE, per his next of kin, who is his sister, clinically patient was not improving, and she decided to place the patient in hospice comfort and initiate comfort care protocol. He was discharged into hospice care on 02/16/2020. Today we're asked to see the patient again on 02/17/2020. In the last 24 hours his mentation has significantly improved, is awake and alert, he remembered Dr. Brown from previously seen him in the pulmonary clinic on an outpatient basis where Dr. Brown treats him for history of COPD obstructive sleep apnea. Appears to be in no acute distress, resting comfortably in bed, we seen the patient on the [facility] oncology floor. He is currently on 2 L of oxygen the pulse ox of 99%, hemodynamically stable, breathing is comfortable, nonlabored, he is afebrile. Today's labs have been reviewed, his white count is 5.0, hemoglobin is 8.0, sodium is 139, potassium is 4.7, chloride is 112, CO2 is 21, BUN of 97, creatinine is 5.24. His right leg and culture was positive for Diann, and left leg wound culture was Diann albicans. His blood culture from previous admission was negative. His antibiotics have been restarted with cefepime and Flagyl. Patient is edematous, and he has been started on IV Lasix at 40 mg every 12 hours. Appears stable right now, he is tolerating oral diet. The patient is seen today 02/18/2020 in follow-up on the oncology unit. He is awake and alert in no acute distress. He is maintaining good O2 saturations in the upper 90s on 2 L/m per nasal cannula. He is afebrile. White count 4.8. Hemoglobin 8.2. Platelets 102,000. Sodium 139. Potassium 4.7. Creatinine 5.13. He remains on IV diuretics. Cefepime. Flagyl. The patient is seen today 02/19/2020 in follow-up on the oncology unit. He is currently sitting up in a chair at the bedside. Awake and alert in no acute distress. Maintaining good O2 saturations in the 90s on 2 L/m per nasal cannula. He is afebrile. Hemodynamically stable. White count 4.9. Hemoglobin 8.1. Sodium 131. Potassium 4.7. Creatinine 5.18. Glucose 159. C. difficile screen negative. He remains on cefepime and Flagyl. Remains on IV diuretics. On 02/23/2020 patient was seen again at the request of the nursing staff on the regular medical surgical floor. The nursing staff was concerned about patient being hypothermic, and his temperature was only registering at 93.7F axillary, however on physical examination patient feels warm, including his lower extremities, he is sleepy however she is easily arousable to verbal stimuli, and he is able to provide simple answers. We'll obtain rectal temp, blood pressures 124/79, no worsening shortness of breath. He is on 3 L of oxygen his pulse ox is 95%, today's chest x-ray shows cardiomegaly, CHF with interstitial pulmonary edema, suspect small pleural effusions, patient is scheduled for hemodialysis catheter insertion today with Dr. Hernández, and hemodialysis will be initiated. Patient has generalized edema, including upper and lower extremities, Josue cat heter is in place and there has been 500 mL of urine in the last 24 hours. No nausea vomiting or diarrhea. Today's labs have been reviewed, showing serum sodium of 140, potassium is 5.2, chloride is 110, CO2 is 18, BUN is 110, and creatinine is 5.9, nephrology is following, anxiety initiate the patient on hemodialysis for severe fluid volume overload the worsening renal function. Patient remains on cefepime for antibiotic coverage, and oral Flagyl. He is on Lasix 80 mg every 12 hours. On 02/24/2020 patient seen in follow-up on general medical surgical floor. Yesterday he had left groin hemodialysis placed, hemodialysis was started and a 2 L of fluid was removed, patient remains on IV Lasix at 80 mg every 12 hours. And he is in -2010 mL over the last 24 hours. Significantly fluid overloaded, and upper and lower extremities, abdomen. Mentation seems to be better, patient is awake, he is answering simple questions, he denies any shortness of breath he is on 4 L of oxygen a pulse ox of 100%. Blood pressure is stable 127/72, temperature has improved, with the 96 axillary last night, and this morning oral temperature is 90.4, however this probably inaccurate reading, as the p franklin is a mouth breather, and physical exam reveals dry and warm skin. Yesterday lactic acid was drawn and sent back normal at 0.8, blood cultures were sent. Lung sounds are clear, diminished at the bases, abdomen is nontender, obese, edematous, no nausea or vomiting. Lower extremities are wrapped, local wound care is being done per ID service recommendations. Today's labs have been reviewed showing sodium of 140, potassium is 4.9, chloride is 108, CO2 is 17, B1 is 90 and creatinine is 5.36. On 02/25/2020 patient is seen in follow-up on the regular medical surgical floor, he is awake and alert, somewhat slow to respond, but providing simple answers, denies any acute distress, no shortness of breath, he is on 2 L of oxygen with a pulse ox of 96%, hemodynamically stable, normothermic, with a temp of 98.5F, respirations are nonlabored, lung sounds are clear, diminished at the bases, patient is having a hemodialysis treatment again today, his blood dialyzed every day for last 3 days, yesterday he had 3 L of fluid removed, today the posterior removing on 3 L of fluid. His generalized edema is improving, today's labs have been reviewed, showing improving renal function, with the BUN down to 66 and creatinine of 4.28. Blood cultures have shown no growth, he has had no fever or chills. He is receiving local wound care to his lower extremity wounds, ID service is following, antibiotic coverage is in the form of cefepime and Flagyl. He is on oral Lasix 80 mg every 12 hours, he is in -2000 ML fluid balance over the last 24 hours. Overall patient's weight is down by 15 kg in the last few days. On 02/26/2020 patient seen in follow-up on the regular medical surgical floor. Early this morning patient was found to be less responsive, rapid response team was called, blood gas was obtained showing pO2 of 98, pCO2 of 66, and pH of 7.19, consistent with acute respiratory acidosis, patient was placed on beta BiPAP with pressures of 14/7, and FiO2 of 30%. On today's exam patient more arousable, he opens eyes to voice, he is nodding his head yes or no appropriately to verbal questioning, he denies any acute distress, lung sounds reveal a few scattered rhonchi bilaterally, repeat blood gas has been ordered, and it showed pO2 of 103, pCO2 48 and pH of 7.29 improving respiratory acidosis. Patient has been dialyzed every day for last 3 days, he is scheduled for a hem odialysis treatment today, overall fluid balance status is improving, yesterday 3. liters of fluid was removed with dialysis. Generalized edema has improved significantly. Patient has been afebrile, hemodynamically patient is stable, he remains on antibiotics for cefepime and Flagyl for antibiotic coverage for left lower extremity osteomyelitis, ID service is following. Nephrology is following, patient is also receiving IV Lasix at 80 mg every 12 hours, Josue catheter is in place and patient has produced 600 mL and urine output in the last 24 hours. A 2019, the patient is being seen for a follow-up. He is lethargic but she is awake and alert and responsive. He is having hemodialysis this morning. Overnight, he was placed on BiPAP therapy at a pressure of 14/7 cm of water with an FiO2 of 30%. He did quite well in the setting he did not have any major respiratory difficulties. We'll generating tidal volume which was above 800 mL and the patient's ventilation was at 12.3 L. He was taken off the BiPAP this morning and was placed on 3 L of oxygen by nasal cannula. The goal is to do another ultrafiltration of 3.5 L on today's hemodialysis session. His blood work shows a potassium level of 2.[address] Creatinine is down to 2.9. His body weight is down as the patient is having ultrafiltration. Hemoglobin remains stable at 7.4. He has generalized weakness which is global and there is no focal neurological deficit. The patient remains on IV cefepime and Flagyl.. The patient remains on oral bicarb. The most recent chest x-ray shows small lung volumes. There was a component of pulmonary vessel congestion. This was a limited portable examination an examination somewhat limited due to his morbidly obese body habitus. 02/28/2020, I'm seeing the patient for a follow-up. Doing well per no new complaints. Undergoing another session of hemodialysis. Has lost significant amount of weight and he remains in a negative fluid balance and there is i mprovement in the anasarca and diffuse edema that the patient had earlier. The chest x-ray also showing improvement in volume status and the patient is currently on 2 L of oxygen by nasal cannula and his resting comfortably in bed. He is tolerating the dialysis or the major difficulties through a temporary Vas- Cath in his left groin. He remains also on IV Lasix 80 mg IV push every 12 hours. He is receiving a combination of cefepime and Flagyl regarding his lower extremity wounds. He is awake and alert. No specific complaints otherwise for now. I may consider transferring him out of the intensive care unit once dialysis is completed. The WBC count is at 5.6 with a hemoglobin of 7.2. Creatinine is at 2.65. A 32,020, the patient doing well. No specific complaints. The only issue for nausea and diarrhea that has evolved over the past 24-48 hours and the patient has a fecal management system in place. He remains on IV cefepime. He remains also on Flagyl. ID is on the case. Stool for C. diff was negative 1. No dialysis today. His last dialysis session was yesterday. He is a negative fluid balance. No signs of any respiratory distress. He is awake and alert. Infectious disease even with this patient and asked for another debridement and/or possible amputation of the left lower extremity based on the extensive disease/wound involving the left leg which seems to be nonsalvageable at this point in time. No altered mentation. No chest pain. No shortness of breath. No aspiration. He is resting comfortably in bed at 2 L of oxygen by nasal cannula. Patient was reevaluated today on 03/01/20, remains in the ICU. Presently on 2 L nasal cannula, he is receiving hemodialysis. Intermittently on BiPAP with IPAP 14 EPAP of 7 and FiO2 of 30%. Patient is about the same. Remains on IV antibiotics in the form of cefepime and Flagyl. His C. difficile screening was negative. And his antibiotics are managed by infectious disease on the case. Patient is not in any form of respiratory distress. CBC showed a hemoglobin of 8.3 WBC count of 7.3 left lites are normal BUN is 21 creatinine 3.10. Objective - Vital Signs Vital signs: Vital Signs Temp 97.3 F L 03/01/20 12:55 Pulse 71 03/01/20 12:55 Resp 12 03/01/20 12:55 BP 87/61 03/01/20 12:55 Pulse Ox 89 L 03/01/20 08:47 Intake & Output 02/29/20 03/01/20 03/01/20 18:59 06:59 18:59 Intake Total 130 110 360 Output Total 142 189 8584 Balance -20 115 -9895 Weight 110.178 kg 110.178 kg Intake: IV 80 110 110 0.9 80 110 110 Oral 50 250 Output: Urine 150 225 45 Hemodialysis 2500 Other: Voiding Method Indwelling Catheter Indwelling Catheter Indwelling Catheter - Exam GENERAL EXAM: Revealed 49-year-old white male, awake, in no distress. HEENT: PERRLA, EOMI, no icterus, neck masses, no JVD, no stridor. CHEST: No chest wall deformity. Symmetrical expansion. LUNGS: Symmetrical chest expansion minimal crackles at the bases. CVS: Regular rate and rhythm, normal S1 and S2, no gallops, no murmurs, no rubs ABDOMEN: Soft, nontender. No hepatosplenomegaly, normal bowel sounds, no guarding or rigidity. EXTREMITIES: No clubbing, significant edema involving upper and lower extremities, no cyanosis, 2+ pulses and upper and lower extremities. bilateral lower extremities covered with dressings MUSCULOSKELETAL: Muscle strength and tone normal. SPINE: No scoliosis or deformity SKIN: No rashes CENTRAL NERVOUS SYSTEM: Awake and alert, oriented times person, no facial asymmetry - Labs CBC & Chem 7: 03/01/20 04:35 03/01/20 04:35 Labs: Abnormal Lab Results - Last 24 Hours (Table) 02/29/20 02/29/20 03/01/20 Range/Units 17:04 20:56 04:35 RBC 2.70 L (4.30-5.90) m/uL Hgb 8.3 L (13.0-17.5) gm/dL Hct 28.7 L (39.0-53.0) % MCV 106.2 H (80.0-100.0) fL MCHC 28.9 L (31.0-37.0) g/dL RDW 18.7 H (11.5-15.5) % Plt Count 109 L (150-450) k/uL Macrocytosis Marked A Chloride (98-107) mmol/L BUN (9-20) mg/dL Creatinine (0.66-1.25) mg/dL Glucose (74-99) mg/dL POC Glucose (mg/dL) 171 H 165 H (75-99) mg/dL Calcium (8.4-10.2) mg/dL Alkaline Phosphatase (38-126) U/L Total Protein (6.3-8.2) g/dL Albumin (3.5-5.0) g/dL 03/01/20 03/01/20 Range/Units 04:35 12:21 RBC (4.30-5.90) m/uL Hgb (13.0-17.5) gm/dL Hct (39.0-53.0) % MCV (80.0-100.0) fL MCHC (31.0-37.0) g/dL RDW (11.5-15.5) % Plt Count (150-450) k/uL Macrocytosis Chloride 110 H (98-107) mmol/L BUN 21 H (9-20) mg/dL Creatinine 3.10 H (0.66-1.25) mg/dL Glucose 121 H (74-99) mg/dL POC Glucose (mg/dL) 178 H (75-99) mg/dL Calcium 8.2 L (8.4-10.2) mg/dL Alkaline Phosphatase 195 H (38-126) U/L Total Protein 6.0 L (6.3-8.2) g/dL Albumin 2.4 L (3.5-5.0) g/dL Microbiology - Last 24 Hours (Table) 02/23/20 14:11 Blood Culture - Final Blood No Growth after 144 hours 02/23/20 13:57 Blood Culture - Final Blood No Growth after 144 hours Assessment and Plan Assessment: Impression: Acute hypoxic and hypercapnic respiratory failure secondary to interstitial edema secondary to end-stage renal disease and fluid overload from renal failure/chronic. Global aphasia, resolved. Acute metabolic encephalopathy and sepsis, resolved. Acute non-anion gap metabolic acidosis, improving with dialysis. Severe pulmonary hypertension Hypothyroidism Osteomyelitis of the left calcaneus History of chronic cellulitis of both lower extremities. Chronic diastolic congestive heart failure Previous history of MRSA infection Obstructive sleep apnea syndrome Medical debility and gait dysfunction Recommendation: Continue hemodialysis/ultrafiltration. Continue antibiotics. Continue BiPAP as needed Continue dialysis Continue Lasix Transferred to a regular medical floor once a bed becomes available. Will follow on when necessary basis. Time with Patient: Less than 30
--- NOTE | 2020-03-01 16:53 | PN ---
PROGRESS NOTE Patient is seen for followup for acute kidney injury on top of chronic kidney disease. He has been started on dialysis because of worsening renal function and severe volume overload. Volume status has improved significantly with significant decrease in the lower extremity edema. The patient is comfortable. He was having significant diarrhea. An FMS system was placed, but the patient was very uncomfortable. Therefore it was removed yesterday. Diarrhea seems to have decreased as well today. Patient's oral intake is fair. He is encouraged to increase his oral intake. Urine output remains on the lower side with 24 hour urine output documented at 535 mL. He has had about 3.2 L to 3.4 L of fluid removed almost on a daily basis last week and today we are going for about 2.5 L. Blood pressures have been stable. PHYSICAL EXAMINATION: Today blood pressure was 95/62, heart rate 67 per minute, he is afebrile. Examination of the heart S1, S2. Examination of lungs, decreased breath sounds at the bases. Abdomen is soft, nontender. Examination of the lower extremities shows chronic skin changes, much decreased edema. [employer] exam grossly intact. LABS: Show sodium 137, potassium 3.7, BUN 21, creatinine 3.1, hemoglobin 8.3 g/dL. ASSESSMENT: 1. Acute kidney injury ATN, multifactorial, currently oliguric. Patient's urine output was good earlier, however, it has dropped over the last few days. I will continue with the IV Lasix as the chest x-ray from yesterday continues to show some pulmonary vascular hyper cellularity. I will hold dialysis tomorrow and we will reassess the volume status. Creatinine is now around 3 mg/dL. 2. Severe volume overload, currently improved. 3. History of acute kidney injury about 3 months ago with requirement of hemodialysis for about 4-5 weeks and then off dialysis with creatinine about 1 prior to this episode of acute kidney injury. 4. Acute hypoxic and hypercapnic respiratory failure associated with volume overload and obstructive sleep apnea, currently improved. 5. Metabolic acidosis now resolved. 6. Left calcaneal osteomyelitis with sepsis, maintained on antibiotics. 7. Severe pulmonary hypertension with tricuspid regurg. 8. Chronic kidney disease stage 3 previous creatinine as low as 1.0 mg/dL. PLAN: Hold hemodialysis in a.m. Continue Lasix. Decrease dose to 60 q.12 and repeat chest x- ray in a.m. MMODL / IJN: [id number] /
[2020-03-01 17:15] LABS: Glucose,Whole Blood 187 mg/dL (75-99)
[2020-03-01] MEDS: COLLAGENASE 250 UNIT/GM OINTMENT 30 GM TUBE TOPICAL SCH (18:55)
[2020-03-01 20:41] LABS: Glucose,Whole Blood 188 mg/dL (75-99)
[2020-03-01] MEDS: INSULIN DETEMIR (LEVEMIR) 100 UNIT/ML SYR SQ SCH (21:00)
--- NOTE | 2020-03-01 22:07 | PN ---
PROGRESS NOTE DATE OF SERVICE: 03/01/2020 REASON FOR FOLLOWUP: Left heel osteomyelitis. INTERVAL HISTORY: The patient is currently afebrile. The patient is breathing comfortably. Denies having any chest pain or any cough. No nausea, no vomiting. No abdominal pain. No diarrhea. The fecal management has been discontinued. PHYSICAL EXAMINATION: Blood pressure is 95/62 with a pulse of 87, temperature 97.3. He is currently on room air. General description is a middle-aged male lying in bed in no distress. RESPIRATORY SYSTEM: Unlabored breathing with decreased breath sounds at the base. No wheeze. HEART: S1, S2. Regular rate and rhythm. ABDOMEN: Soft. No tenderness. LABS: Hemoglobin 8.3, white count 7.3, BUN of 21, creatinine 3.10. Blood culture has been negative. DIAGNOSTIC IMPRESSION AND PLAN: Patient with left heel osteomyelitis in this patient who did have surgical debridement. However, the wound base still has a significant amount of slough tissue and will benefit from re-debridement, for which vascular surgeon has been consulted. Will keep the patient on cefepime and Flagyl. Local care with [facility]. Continue with supportive care. MMODL / IJN: [id number] /
[2020-03-02] MEDS: ACETAMINOPHEN TAB 325 MG TAB PO PRN ×2 (00:05→21:57)
[2020-03-02 06:49] LABS: Glucose,Whole Blood 189 mg/dL (75-99)
[2020-03-02] MEDS: INSULIN ASPART (NovoLOG) 100 UNIT/ML VIAL SQ SCH ×5 (07:15→20:47)
[2020-03-02] MEDS: carvediloL 12.5 MG TAB PO SCH ×2 (07:16→17:02)
[2020-03-02] MEDS: LEVOTHYROXINE 75 MCG TAB PO SCH (07:16)
[2020-03-02] MEDS: MULTIVITAMINS, THERA 1 EACH TAB PO SCH (08:29)
[2020-03-02] MEDS: HEPARIN SODIUM,PORCINE 5,000 UNIT/ML 1 ML VIAL SQ SCH ×2 (08:29→20:47)
[2020-03-02] MEDS: ASPIRIN 81 MG PO SCH (08:29)
[2020-03-02] MEDS: SODIUM BICARBONATE TAB 650 MG TAB PO SCH ×4 (08:29→22:03)
[2020-03-02] MEDS: metroNIDAZOLE 500 MG TAB PO SCH ×3 (08:29→23:45)
[2020-03-02] MEDS: FAMOTIDINE 20 MG TAB PO SCH (08:30)
[2020-03-02] MEDS: CEFEPIME 1 GM in SODIUM CHLORIDE 0.9% 50 ML IVPB SCH ×2 (08:30→20:46)
[2020-03-02] MEDS: FUROSEMIDE 10 MG/ML 10 ML VIAL IV SCH ×2 (08:30→20:47)
[2020-03-02] MEDS: COLLAGENASE 250 UNIT/GM OINTMENT 30 GM TUBE TOPICAL SCH (08:31)
--- NOTE | 2020-03-02 10:30 | P.PN ---
Subjective Patient is seen in follow-up for acute kidney injury. Due to worsening GFR and severe volume overload, he was started on renal replacement therapy on February 22. Tolerated 2.5 L ultrafiltration yesterday. Remains oliguric. Urine output 20 mL since 7 AM. Oral intake is just fair. Currently awake and alert and responding to verbal commands. Vital signs are stable. General: The patient appeared well nourished and normally developed. HEENT: Head exam is unremarkable. Neck is without jugular venous distension. LUNGS: Breath sounds decreased. HEART: Rate and Rhythm are regular. ABDOMEN: Soft, nontender. Obese. EXTREMITITES: 2+ edema. Chronic changes noted. Scrotal edema noted. Objective - Vital Signs Vital signs: Vital Signs Temp 98.5 F 03/02/20 05:00 Pulse 71 03/02/20 05:00 Resp 18 03/02/20 05:00 BP 112/76 03/02/20 05:00 Pulse Ox 98 03/02/20 05:00 Intake & Output 03/01/20 03/02/20 03/02/20 18:59 06:59 18:59 Intake Total 360 760 Output Total 2545 80 Balance -2185 680 Weight 110.178 kg 109.55 kg Intake: IV 110 240 0.9 110 190 Cefepime 1 gm In Sodium 50 Chloride 0.9% 50 ml @ 12. 5 mls/hr IVPB Q12HR [facility] Rx#:[id number] Oral 250 520 Output: Urine 45 80 Hemodialysis 2500 Other: Voiding Method Indwelling Catheter Indwelling Catheter Indwelling Catheter # Bowel Movements 1 1 - Labs CBC & Chem 7: 03/01/20 04:35 03/01/20 04:35 Labs: Abnormal Lab Results - Last 24 Hours (Table) 03/01/20 03/01/20 03/01/20 Range/Units 12:21 17:13 20:39 POC Glucose (mg/dL) 178 H 187 H 188 H (75-99) mg/dL 03/02/20 Range/Units 06:46 POC Glucose (mg/dL) 189 H (75-99) mg/dL Assessment and Plan Plan: Assessment: 1. Acute kidney injury secondary to ATN secondary to vancomycin toxicity as well as contrast-induced acute kidney injury. Creatinine peaked at 5.99 this admission. Started on hemodialysis on February 22 for severe volume overload. 2. Metabolic acidosis secondary to acute kidney injury maintained on oral sodium bicarbonate. Improved postdialysis. 3. Volume overload. Improving withvultrafiltration. 4. Acute on chronic systolic CHF with ejection fraction of 40-45% with severe pulmonary hypertension. 5. Left lower extremity osteomyelitis. Maintained on antibiotics. 6. Chronic kidney disease stage II with baseline creatinine 1-1.1. 7. Diabetes mellitus. 8. Acute hypercapnic respiratory failure. Better. 9. Hypokalemia secondary to diuresis. Better post replacement. 10. Anemia of chronic kidney disease maintained on Aranesp. Plan: Hemodialysis tomorrow. Continue to monitor for renal recovery. Currently oliguric.
[2020-03-02 11:47] LABS: Glucose,Whole Blood 198 mg/dL (75-99)
--- NOTE | 2020-03-02 12:49 | P.PN ---
Subjective Progress Note Date: 03/02/20 Principal diagnosis: Acute hypoxic and hypercapnic respiratory failure secondary to fluid overload/interstitial edema secondary to chronic end-stage renal disease requiring hemodialysis. This is a 49-year-old white male patient that we saw in consultation on 02/11/2020 last week for hypoxic respiratory failure related to sepsis, secondary to left calcaneal osteomyelitis, acute kidney injury, and patient was having neurological abnormalities that included global aphasia, and left upper extremity weakness, with a concern of meningoencephalitis, however LP was not performed because the patient's sister declined any aggressive medical treatment. CT of the brain did not show evidence of aneurysm or acute ischemia. Patient's was treated medically, his breathing was supported with BiPAP, he was receiving broad-spectrum antibiotics for osteomyelitis of the left calcaneus s tatus post debridement. Patient codes status was DO NOT RESUSCITATE, per his next of kin, who is his sister, clinically patient was not improving, and she decided to place the patient in hospice comfort and initiate comfort care protocol. He was discharged into hospice care on 02/16/2020. Today we're asked to see the patient again on 02/17/2020. In the last 24 hours his mentation has significantly improved, is awake and alert, he remembered Dr. Brown from previously seen him in the pulmonary clinic on an outpatient basis where Dr. Brown treats him for history of COPD obstructive sleep apnea. Appears to be in no acute distress, resting comfortably in bed, we seen the [facility] floor. He is currently on 2 L of oxygen the pulse ox of 99%, hemodynamically stable, breathing is comfortable, nonlabored, he is afebrile. Today's labs have been reviewed, his white count is 5.0, hemoglobin is 8.0, sodium is 139, potassium is 4.7, chloride is 112, CO2 is 21, BUN of 97, creatinine is 5.24. His right leg and culture was positive for Diann, and left leg wound culture was Diann albicans. His blood culture from previous admission was negative. His antibiotics have been restarted with cefepime and Flagyl. Patient is edematous, and he has been started on IV Lasix at 40 mg every 12 hours. Appears stable right now, he is tolerating oral diet. The patient is seen today 02/18/2020 in follow-up on the oncology unit. He is awake and alert in no acute distress. He is maintaining good O2 saturations in the upper 90s on 2 L/m per nasal cannula. He is afebrile. White count 4.8. Hemoglobin 8.2. Platelets 102,000. Sodium 139. Potassium 4.7. Creatinine 5.13. He remains on IV diuretics. Cefepime. Flagyl. The patient is seen today 02/19/2020 in follow-up on the oncology unit. He is currently sitting up in a chair at the bedside. Awake and alert in no acute distress. Maintaining good O2 saturations in the 90s on 2 L/m per nasal cannula. He is afebrile. Hemodynamically stable. White count 4.9. Hemoglobin 8.1. Sodium 131. Potassium 4.7. Creatinine 5.18. Glucose 159. C. difficile screen negative. He remains on cefepime and Flagyl. Remains on IV diuretics. On 02/23/2020 patient was seen again at the request of the nursing staff on the regular medical surgical floor. The nursing staff was concerned about patient being hypothermic, and his temperature was only registering at 93.7F axillary, however on physical examination patient feels warm, including his lower extremities, he is sleepy however she is easily arousable to verbal stimuli, and he is able to provide simple answers. We'll obtain rectal temp, blood pressures 124/79, no worsening shortness of breath. He is on 3 L of oxygen his pulse ox is 95%, today's chest x-ray shows cardiomegaly, CHF with interstitial pulmonary edema, suspect small pleural effusions, patient is scheduled for hemodialysis catheter insertion today with Dr. Hernández, and hemodialysis will be initiated. Patient has generalized edema, including upper and lower extremities, Josue cat heter is in place and there has been 500 mL of urine in the last 24 hours. No nausea vomiting or diarrhea. Today's labs have been reviewed, showing serum sodium of 140, potassium is 5.2, chloride is 110, CO2 is 18, BUN is 110, and creatinine is 5.9, nephrology is following, anxiety initiate the patient on hemodialysis for severe fluid volume overload the worsening renal function. Patient remains on cefepime for antibiotic coverage, and oral Flagyl. He is on Lasix 80 mg every 12 hours. On 02/24/2020 patient seen in follow-up on general medical surgical floor. Yesterday he had left groin hemodialysis placed, hemodialysis was started and a 2 L of fluid was removed, patient remains on IV Lasix at 80 mg every 12 hours. And he is in -2010 mL over the last 24 hours. Significantly fluid overloaded, and upper and lower extremities, abdomen. Mentation seems to be better, patient is awake, he is answering simple questions, he denies any shortness of breath he is on 4 L of oxygen a pulse ox of 100%. Blood pressure is stable 127/72, temperature has improved, with the 96 axillary last night, and this morning oral temperature is 90.4, however this probably inaccurate reading, as the p franklin is a mouth breather, and physical exam reveals dry and warm skin. Yesterday lactic acid was drawn and sent back normal at 0.8, blood cultures were sent. Lung sounds are clear, diminished at the bases, abdomen is nontender, obese, edematous, no nausea or vomiting. Lower extremities are wrapped, local wound care is being done per ID service recommendations. Today's labs have been reviewed showing sodium of 140, potassium is 4.9, chloride is 108, CO2 is 17, B1 is 90 and creatinine is 5.36. On 02/25/2020 patient is seen in follow-up on the regular medical surgical floor, he is awake and alert, somewhat slow to respond, but providing simple answers, denies any acute distress, no shortness of breath, he is on 2 L of oxygen with a pulse ox of 96%, hemodynamically stable, normothermic, with a temp of 98.5F, respirations are nonlabored, lung sounds are clear, diminished at the bases, patient is having a hemodialysis treatment again today, his blood dialyzed every day for last 3 days, yesterday he had 3 L of fluid removed, today the posterior removing on 3 L of fluid. His generalized edema is improving, today's labs have been reviewed, showing improving renal function, with the BUN down to 66 and creatinine of 4.28. Blood cultures have shown no growth, he has had no fever or chills. He is receiving local wound care to his lower extremity wounds, ID service is following, antibiotic coverage is in the form of cefepime and Flagyl. He is on oral Lasix 80 mg every 12 hours, he is in -2000 ML fluid balance over the last 24 hours. Overall patient's weight is down by 15 kg in the last few days. On 02/26/2020 patient seen in follow-up on the regular medical surgical floor. Early this morning patient was found to be less responsive, rapid response team was called, blood gas was obtained showing pO2 of 98, pCO2 of 66, and pH of 7.19, consistent with acute respiratory acidosis, patient was placed on beta BiPAP with pressures of 14/7, and FiO2 of 30%. On today's exam patient more arousable, he opens eyes to voice, he is nodding his head yes or no appropriately to verbal questioning, he denies any acute distress, lung sounds reveal a few scattered rhonchi bilaterally, repeat blood gas has been ordered, and it showed pO2 of 103, pCO2 48 and pH of 7.29 improving respiratory acidosis. Patient has been dialyzed every day for last 3 days, he is scheduled for a hem odialysis treatment today, overall fluid balance status is improving, yesterday 3. liters of fluid was removed with dialysis. Generalized edema has improved significantly. Patient has been afebrile, hemodynamically patient is stable, he remains on antibiotics for cefepime and Flagyl for antibiotic coverage for left lower extremity osteomyelitis, ID service is following. Nephrology is following, patient is also receiving IV Lasix at 80 mg every 12 hours, Josue catheter is in place and patient has produced 600 mL and urine output in the last 24 hours. A 2019, the patient is being seen for a follow-up. He is lethargic but she is awake and alert and responsive. He is having hemodialysis this morning. Overnight, he was placed on BiPAP therapy at a pressure of 14/7 cm of water with an FiO2 of 30%. He did quite well in the setting he did not have any major respiratory difficulties. We'll generating tidal volume which was above 800 mL and the patient's ventilation was at 12.3 L. He was taken off the BiPAP this morning and was placed on 3 L of oxygen by nasal cannula. The goal is to do another ultrafiltration of 3.5 L on today's hemodialysis session. His blood work shows a potassium level of 2.[address] Creatinine is down to 2.9. His body weight is down as the patient is having ultrafiltration. Hemoglobin remains stable at 7.4. He has generalized weakness which is global and there is no focal neurological deficit. The patient remains on IV cefepime and Flagyl.. The patient remains on oral bicarb. The most recent chest x-ray shows small lung volumes. There was a component of pulmonary vessel congestion. This was a limited portable examination an examination somewhat limited due to his morbidly obese body habitus. 02/28/2020, I'm seeing the patient for a follow-up. Doing well per no new complaints. Undergoing another session of hemodialysis. Has lost significant amount of weight and he remains in a negative fluid balance and there is i mprovement in the anasarca and diffuse edema that the patient had earlier. The chest x-ray also showing improvement in volume status and the patient is currently on 2 L of oxygen by nasal cannula and his resting comfortably in bed. He is tolerating the dialysis or the major difficulties through a temporary Vas- Cath in his left groin. He remains also on IV Lasix 80 mg IV push every 12 hours. He is receiving a combination of cefepime and Flagyl regarding his lower extremity wounds. He is awake and alert. No specific complaints otherwise for now. I may consider transferring him out of the intensive care unit once dialysis is completed. The WBC count is at 5.6 with a hemoglobin of 7.2. Creatinine is at 2.65. A 32,020, the patient doing well. No specific complaints. The only issue for nausea and diarrhea that has evolved over the past 24-48 hours and the patient has a fecal management system in place. He remains on IV cefepime. He remains also on Flagyl. ID is on the case. Stool for C. diff was negative 1. No dialysis today. His last dialysis session was yesterday. He is a negative fluid balance. No signs of any respiratory distress. He is awake and alert. Infectious disease even with this patient and asked for another debridement and/or possible amputation of the left lower extremity based on the extensive disease/wound involving the left leg which seems to be nonsalvageable at this point in time. No altered mentation. No chest pain. No shortness of breath. No aspiration. He is resting comfortably in bed at 2 L of oxygen by nasal cannula. Patient was reevaluated today on 03/01/20, remains in the ICU. Presently on 2 L nasal cannula, he is receiving hemodialysis. Intermittently on BiPAP with IPAP 14 EPAP of 7 and FiO2 of 30%. Patient is about the same. Remains on IV antibiotics in the form of cefepime and Flagyl. His C. difficile screening was negative. And his antibiotics are managed by infectious disease on the case. Patient is not in any form of respiratory distress. CBC showed a hemoglobin of 8.3 WBC count of 7.3 left lites are normal BUN is 21 creatinine 3.10. Patient was reevaluated today on 03/02/20, remains in the ICU as an overflow he is on room air with O2 saturation 96%. Did not use his BiPAP last night. Patient is in sinus rhythm, remains on IV fluid at 10 mL per hour. On dialysis 3 days a week. Vascular surgery is addressing his wounds in lower extremities and recommending debridement. Overall the patient is basically about the same compared to yesterday. He is basically asymptomatic. CBC is relatively normal hemoglobin is 8.3. Basic metabolic profile is normal BUN is 21 creatinine is 3.10. No chest x-ray was done today. Objective - Vital Signs Vital signs: Vital Signs Temp 98.5 F 03/02/20 05:00 Pulse 71 03/02/20 05:00 Resp 18 03/02/20 05:00 BP 112/76 03/02/20 05:00 Pulse Ox 98 03/02/20 05:00 Intake & Output 03/01/20 03/02/20 03/02/20 18:59 06:59 18:59 Intake Total 360 760 Output Total 2545 80 Balance -2185 680 Weight 110.178 kg 109.55 kg Intake: IV 110 240 0.9 110 190 Cefepime 1 gm In Sodium 50 Chloride 0.9% 50 ml @ 12. 5 mls/hr IVPB Q12HR [facility] Rx#:[id number] Oral 250 520 Output: Urine 45 80 Hemodialysis 2500 Other: Voiding Method Indwelling Catheter Indwelling Catheter Indwelling Catheter # Bowel Movements 1 1 - Exam GENERAL EXAM: Revealed 49-year-old white male, awake, in no distress. HEENT: PERRLA, EOMI, no icterus, neck masses, no JVD, no stridor. CHEST: No chest wall deformity. Symmetrical expansion. LUNGS: Symmetrical chest expansion minimal crackles at the bases. CVS: Regular rate and rhythm, normal S1 and S2, no gallops, no murmurs, no rubs ABDOMEN: Soft, nontender. No hepatosplenomegaly, normal bowel sounds, no guarding or rigidity. EXTREMITIES: No clubbing, significant edema involving upper and lower extremities, no cyanosis, 2+ pulses and upper and lower extremities. bilateral lower extremities covered with dressings MUSCULOSKELETAL: Muscle strength and tone normal. SPINE: No scoliosis or deformity SKIN: No rashes CENTRAL NERVOUS SYSTEM: Awake and alert, oriented times person, no facial asymmetry - Labs CBC & Chem 7: 03/01/20 04:35 03/01/20 04:35 Labs: Abnormal Lab Results - Last 24 Hours (Table) 03/01/20 03/01/20 03/02/20 Range/Units 17:13 20:39 06:46 POC Glucose (mg/dL) 187 H 188 H 189 H (75-99) mg/dL 03/02/20 Range/Units 11:45 POC Glucose (mg/dL) 198 H (75-99) mg/dL Assessment and Plan Assessment: Impression: Acute hypoxic and hypercapnic respiratory failure secondary to interstitial edema secondary to end-stage renal disease and fluid overload from renal failure/chronic. Global aphasia, resolved. Acute metabolic encephalopathy and sepsis, resolved. Acute non-anion gap metabolic acidosis, improving with dialysis. Severe pulmonary hypertension Hypothyroidism Osteomyelitis of the left calcaneus History of chronic cellulitis of both lower extremities. Chronic diastolic congestive heart failure Previous history of MRSA infection Obstructive sleep apnea syndrome Medical debility and gait dysfunction Recommendation: Continue hemodialysis/ultrafiltration. Continue antibiotics. Continue BiPAP as needed Continue dialysis Continue Lasix Will transfer to a regular medical floor once a bed becomes available. Overall long-term prognosis remains poor and guarded. Time with Patient: Less than 30
[2020-03-02 16:59] LABS: Glucose,Whole Blood 268 mg/dL (75-99)
--- NOTE | 2020-03-02 17:19 | PN ---
PROGRESS NOTE DATE OF SERVICE: 03/02/2020 REASON FOR FOLLOWUP: Left heel osteomyelitis. INTERVAL HISTORY: The patient is currently afebrile. The patient is breathing comfortably. The patient denies having any chest pain or shortness of breath or cough. No nausea, vomiting or abdominal pain or pain to the left heel. PHYSICAL EXAMINATION: Blood pressure 104/64 with a pulse of 75, temperature 98. He is 95% on 2 L nasal cannula. General description is a middle-aged male lying in bed in no distress. RESPIRATORY SYSTEM: Unlabored breathing. Clear to auscultation anteriorly. HEART: S1, S2. Regular rate and rhythm. ABDOMEN: Soft. No tenderness. LABS: No new labs have been obtained today. DIAGNOSTIC IMPRESSION AND PLAN: Patient with left heel osteomyelitis and cultures were positive at that time for Morganella, strep and anaerobes. Patient is covered with cefepime and Flagyl. Continue local care with [facility]. Continue supportive care. MMODL / IJN: [id number] /
--- NOTE | 2020-03-02 18:56 | P.PN ---
Subjective This 49 years old male with multiple medical problems who was admitted on 02/01 for bilateral leg cellulitis and sepsis, patient history of wound and debridement of the heel and possible osteomyelitis per Bone scan. Patient hospital course was complicated by "stroke which was called on 02/08, patient had global aphasia with negative CT of the brain and CTA of the brain which were nondiagnostic. No MRI could be done because of his body habitus. Patient also found to have severe tricuspid regurgitation and severe pulmonary hypertension. Patient developed acute hypoxic respiratory failure and he was in the ICU treated with BiPAP. Increase intercranial pressure was suspected but the guardian did not approve lumbar puncture to be done, eventually patient was made DO NOT RESUSCITATE and guardian and family opted for no procedure, eventually patient was already accepted by [facility] hospice team , however the last 2 days patient started waking up and he was alert awake and oriented to time place and person, he was short of breath and complaining from pain in his left leg, after discussion with the family and the patient they wanted to revoke hospice care and they want patient to be treated therefore patient will be discharged from hospice care and will be admitted under medicine Currently patient is awake and alert to time, place and person, he no at least [facility] in [place] and it is January 2020, and he noted name of the president troponin Patient is short of breath and he has difficulty finishing his sentences, how ever he is on 2 L oxygen via nasal cannula with oxygen saturation in 90s. Chest x-ray showing bilateral pulmonary congestion and patient is provided with Lasix 40 mg twice daily. His antibiotics including cefepime and Flagyl resumed and infectious disease were consulted for further recommendation. His creatinine has trended up to 5.24, compared to 1.9 on 02/01, [facility] [employer] team consulted. Also pulmonary team were consulted as they have evaluated him before. Consult has been placed for murray Gr as he is known to the service and has been evaluated by Dr. Mcgraw. Patient was on insulin at home, we'll start him on Levemir 5 units at bedtime plus insulin sliding scale Patient is with Josue catheter 02/28/2020 patient was started on hemodialysis on 02/22 and his swelling has significantly improved, however his speech is still interrupted and lagging when he talks, most likely related to previous stroke rather than shortness of breath He still have wounds and cellulitis in the left lower extremity which is improving. No abdominal pain or chest pain. Nephrology on the case for his acute kidney injury and he is already started on dialysis. Still has diarrhea. Labs reviewed, Vitals stable Physical on cefepime and Flagyl. His sugars controlled on Levemir 5 units plus insulin sliding scale 02/29/2020 Patient remains in the ICU, he is awake and alert with no dyspnea, no cough or phlegm, no chest pain Still has diarrhea with brown stool, he has rectal tube with backfill already in the morning and needs to be changed He denies abdominal pain, no nausea vomiting and he is tolerating diet well. Patient continued to be on hemodialysis 03/01/2020 Patient in the ICU, awake and alert, no much change clinically from yesterday. He's afebrile and blood pressure is 111/63. He was hypoxic at 89% on room air this morning, was placed back on 2 L oxygen via nasal cannula. Were un remarkable this morning include a CBC and BMP and liver enzymes, his creatinine is stable at 3.1 and his sugars controlled. He is on Lasix 60 mg IV twice daily We are going to re-consult vascular surgery Dr. Hernández for reevaluation of his left lower extremity for any possible surgical intervention 03/02/2020 Patient is seen in the ICU as placement overflow to the general medical floor. Clinically stable with no change. He still have significant infection in the left lower extremity and is still on antibiotics with Flagyl and cefepime as per ID team recommendation. Today I discussed the case with Dr. Hernández who did debridement for him earlier and his debridement went down to the bone, patient probably will need palpitation at some point however as per Dr. Hernández patient can be discharged and follow-up with him in the office in one week. Patient is getting hemodialysis tomorrow. We will discuss plan with other consultants. Possible discharge in 24-48 hours if remains stable Objective - Vital Signs Vital signs: Vital Signs Temp 98.0 F 03/02/20 16:00 Pulse 75 03/02/20 16:00 Resp 20 03/02/20 16:00 BP 104/64 03/02/20 16:00 Pulse Ox 95 03/02/20 16:00 Intake & Output 03/01/20 03/02/20 03/02/20 18:59 06:59 18:59 Intake Total 360 760 430 Output Total 2545 80 45 Balance -2185 680 385 Weight 110.178 kg 109.55 kg Intake: IV 110 240 130 0.9 110 190 80 Cefepime 1 gm In Sodium 50 50 Chloride 0.9% 50 ml @ 12. 5 mls/hr IVPB Q12HR [facility] Rx#:[id number] Oral 250 520 300 Output: Urine 45 80 45 Hemodialysis 2500 Other: Voiding Method Indwelling Catheter Indwelling Catheter Indwelling Catheter # Bowel Movements 1 1 2 - Exam GENERAL: The patient is alert and oriented x3, not in any acute distress. Morbidly obese HEENT: Pupils are round and equally reacting to light. EOMI. No scleral icterus. No conjunctival pallor. Normocephalic, atraumatic. No pharyngeal erythema. No thyromegaly. CARDIOVASCULAR: S1 and S2 present. No murmurs, rubs, or gallops. PULMONARY: Chest is clear to auscultation, no wheezing or crackles. ABDOMEN: Soft, nontender, nondistended, normoactive bowel sounds. No palpable organomegaly. MUSCULOSKELETAL: No joint swelling or deformity. -EXTREMITIES: No cyanosis, clubbing, or pedal edema. Bilateral heel wounds and especially with black eschar on the left heel, dressing is in place NEUROLOGICAL: Gross neurological examination did not reveal any focal deficits. SKIN: No rashes. no petechiae. - Labs CBC & Chem 7: 03/01/20 04:35 03/01/20 04:35 Labs: Abnormal Lab Results - Last 24 Hours (Table) 03/01/20 03/02/20 03/02/20 Range/Units 20:39 06:46 11:45 POC Glucose (mg/dL) 188 H 189 H 198 H (75-99) mg/dL 03/02/20 Range/Units 16:57 POC Glucose (mg/dL) 268 H (75-99) mg/dL Assessment and Plan Assessment: Bilateral lower extremity cellulitis and osteomyelitis of the left calcaneal bone, with Left heel diabetic ulcer, status post debridement Acute hypoxic hypercapnic respiratory failure, secondary to pulmonary congestion as well as sepsis from his bilateral leg cellulitis and osteomyelitis, and severe pulmonary hypertension Acute kidney injury Altered mental status, secondary to metabolic encephalopathy with suspected stroke, also significantly improved patient is awake and oriented Anion gap metabolic acidosis Hypothyroidism Acute on chronic Systolic CHF , ejection fraction 45-50% Severe Pulmonary HTN History of Blood in the stool Type 2 diabetes mellitus poorly controlled with hyperglycemia Peripheral neuropathy CKD stage III Obstructive sleep apnea Possible obesity hypoventilation syndrome History of MRSA of the right shoulder Degenerative joint disease Morbid obesity with BMI 47.1 Plan: This is a pleasant 49 years old male who presents with left heel diabetic ulcer and osteomyelitis, renal failure and pulmonary congestion. Continue with antibi otics per ID team. Continue with IV Lasix. Nephrology and pulmonary consult. Continue with oxygen as needed, Patient is undergoing hemodialysis. Also Labs and medication were reviewed.. Continue same treatment. Continue with symptomatic treatment. Resume home medication. Monitor lytes and vitals. DVT and GI prophylaxis. Further recommendations of the clinical course of the patient DVT prophylaxis: Subcutaneous heparin GI Prophylaxis: Pepcid Prognosis is guarded
[2020-03-02 20:37] LABS: Glucose,Whole Blood 258 mg/dL (75-99)
[2020-03-02] MEDS: INSULIN DETEMIR (LEVEMIR) 100 UNIT/ML SYR SQ SCH (21:06)
[2020-03-03 06:31] LABS: Glucose,Whole Blood 202 mg/dL (75-99)
[2020-03-03] MEDS: carvediloL 12.5 MG TAB PO SCH ×2 (06:44→17:13)
[2020-03-03] MEDS: LEVOTHYROXINE 75 MCG TAB PO SCH (06:44)
[2020-03-03] MEDS: INSULIN ASPART (NovoLOG) 100 UNIT/ML VIAL SQ SCH ×4 (06:44→21:20)
[2020-03-03] MEDS: FUROSEMIDE 10 MG/ML 10 ML VIAL IV SCH ×2 (11:50→21:19)
[2020-03-03] MEDS: metroNIDAZOLE 500 MG TAB PO SCH ×3 (11:57→23:54)
[2020-03-03] MEDS: SODIUM BICARBONATE TAB 650 MG TAB PO SCH ×4 (11:57→21:19)
[2020-03-03] MEDS: MULTIVITAMINS, THERA 1 EACH TAB PO SCH (11:57)
[2020-03-03] MEDS: FAMOTIDINE 20 MG TAB PO SCH (11:57)
[2020-03-03] MEDS: CEFEPIME 1 GM in SODIUM CHLORIDE 0.9% 50 ML IVPB SCH ×2 (11:57→22:01)
[2020-03-03] MEDS: COLLAGENASE 250 UNIT/GM OINTMENT 30 GM TUBE TOPICAL SCH (12:01)
[2020-03-03] MEDS: HEPARIN SODIUM,PORCINE 5,000 UNIT/ML 1 ML VIAL SQ SCH ×2 (12:02→21:19)
[2020-03-03 12:12] LABS: Glucose,Whole Blood 195 mg/dL (75-99)
--- NOTE | 2020-03-03 13:45 | P.PN ---
Subjective This 49 years old male with multiple medical problems who was admitted on 02/01 for bilateral leg cellulitis and sepsis, patient history of wound and debridement of the heel and possible osteomyelitis per Bone scan. Patient hospital course was complicated by "stroke which was called on 02/08, patient had global aphasia with negative CT of the brain and CTA of the brain which were nondiagnostic. No MRI could be done because of his body habitus. Patient also found to have severe tricuspid regurgitation and severe pulmonary hypertension. Patient developed acute hypoxic respiratory failure and he was in the ICU treated with BiPAP. Increase intercranial pressure was suspected but the guardian did not approve lumbar puncture to be done, eventually patient was made DO NOT RESUSCITATE and guardian and family opted for no procedure, eventually patient was already accepted by [facility] hospice team , however the last 2 days patient started waking up and he was alert awake and oriented to time place and person, he was short of breath and complaining from pain in his left leg, after discussion with the family and the patient they wanted to revoke hospice care and they want patient to be treated therefore patient will be discharged from hospice care and will be admitted under medicine Currently patient is awake and alert to time, place and person, he no at least [facility] in [place] and it is January 2020, and he noted name of the president troponin Patient is short of breath and he has difficulty finishing his sentences, how ever he is on 2 L oxygen via nasal cannula with oxygen saturation in 90s. Chest x-ray showing bilateral pulmonary congestion and patient is provided with Lasix 40 mg twice daily. His antibiotics including cefepime and Flagyl resumed and infectious disease were consulted for further recommendation. His creatinine has trended up to 5.24, compared to 1.9 on 02/01, Collar Stay Fuser Tender team consulted. Also pulmonary team were consulted as they have evaluated him before. Consult has been placed for murray Gr as he is known to the service and has been evaluated by Dr. Mcgraw. Patient was on insulin at home, we'll start him on Levemir 5 units at bedtime plus insulin sliding scale Patient is with Josue catheter 02/28/2020 patient was started on hemodialysis on 02/22 and his swelling has significantly improved, however his speech is still interrupted and lagging when he talks, most likely related to previous stroke rather than shortness of breath He still have wounds and cellulitis in the left lower extremity which is improving. No abdominal pain or chest pain. Nephrology on the case for his acute kidney injury and he is already started on dialysis. Still has diarrhea. Labs reviewed, Vitals stable Physical on cefepime and Flagyl. His sugars controlled on Levemir 5 units plus insulin sliding scale 02/29/2020 Patient remains in the ICU, he is awake and alert with no dyspnea, no cough or phlegm, no chest pain Still has diarrhea with brown stool, he has rectal tube with backfill already in the morning and needs to be changed He denies abdominal pain, no nausea vomiting and he is tolerating diet well. Patient continued to be on hemodialysis 03/01/2020 Patient in the ICU, awake and alert, no much change clinically from yesterday. He's afebrile and blood pressure is 111/63. He was hypoxic at 89% on room air this morning, was placed back on 2 L oxygen via nasal cannula. Were un remarkable this morning include a CBC and BMP and liver enzymes, his creatinine is stable at 3.1 and his sugars controlled. He is on Lasix 60 mg IV twice daily We are going to re-consult vascular surgery Dr. Hernández for reevaluation of his left lower extremity for any possible surgical intervention 03/02/2020 Patient is seen in the ICU as placement overflow to the general medical floor. Clinically stable with no change. He still have significant infection in the left lower extremity and is still on antibiotics with Flagyl and cefepime as per ID team recommendation. Today I discussed the case with Dr. Hernández who did debridement for him earlier and his debridement went down to the bone, patient probably will need palpitation at some point however as per Dr. Hernández patient can be discharged and follow-up with him in the office in one week. Patient is getting hemodialysis tomorrow. We will discuss plan with other consultants. Possible discharge in 24-48 hours if remains stable 03/03/2020 Patient clinically stable, no new complaints. Vital signs labs are stable as well. There were discussed and discharge plans with other consultants however nephrology team will prefer placement of permanent dialysis catheter and his IJ, vascular surgery were consulted for this reason as well and Dr. Hernández is aware as per staff. Patient will need to follow-up with Dr. Hernández for evaluation of his left foot infection which might need further debridement and he agrees. Patient currently on Lasix 60 mg IV twice daily 2. Possible discharge in 24-48 hours after dialysis Objective - Vital Signs Vital signs: Vital Signs Temp 97.4 F L 03/03/20 12:19 Pulse 77 03/03/20 12:19 Resp 18 03/03/20 12:19 BP 96/71 03/03/20 12:19 Pulse Ox 97 03/03/20 07:00 Intake & Output 03/02/20 03/03/20 03/03/20 18:59 06:59 18:59 Intake Total 430 380 472 Output Total 45 260 1999 Balance 385 120 -1528 Weight 109.5 kg Intake: IV 130 130 0.9 80 80 Cefepime 1 gm In Sodium 50 50 Chloride 0.9% 50 ml @ 12. 5 mls/hr IVPB Q12HR [facility] Rx#:[id number] Oral 300 250 472 Output: Urine 45 260 Hemodialysis 1999 Other: Voiding Method Indwelling Catheter Indwelling Catheter Indwelling Catheter # Bowel Movements 2 3 4 - Exam GENERAL: The patient is alert and oriented x3, not in any acute distress. Morbidly obese HEENT: Pupils are round and equally reacting to light. EOMI. No scleral icterus. No conjunctival pallor. Normocephalic, atraumatic. No pharyngeal erythema. No thyromegaly. CARDIOVASCULAR: S1 and S2 present. No murmurs, rubs, or gallops. PULMONARY: Chest is clear to auscultation, no wheezing or crackles. ABDOMEN: Soft, nontender, nondistended, normoactive bowel sounds. No palpable organomegaly. MUSCULOSKELETAL: No joint swelling or deformity. -EXTREMITIES: No cyanosis, clubbing, or pedal edema. Bilateral heel wounds and especially with black eschar on the left heel, dressing is in place NEUROLOGICAL: Gross neurological examination did not reveal any focal deficits. SKIN: No rashes. no petechiae. - Labs CBC & Chem 7: 03/01/20 04:35 03/01/20 04:35 Labs: Abnormal Lab Results - Last 24 Hours (Table) 03/02/20 03/02/20 03/03/20 Range/Units 16:57 20:36 06:30 POC Glucose (mg/dL) 268 H 258 H 202 H (75-99) mg/dL 03/03/20 Range/Units 12:11 POC Glucose (mg/dL) 195 H (75-99) mg/dL Assessment and Plan Assessment: Bilateral lower extremity cellulitis and osteomyelitis of the left calcaneal bone, with Left heel diabetic ulcer, status post debridement Acute hypoxic hypercapnic respiratory failure, secondary to pulmonary congestion as well as sepsis from his bilateral leg cellulitis and osteomyelitis, and severe pulmonary hypertension Acute kidney injury Altered mental status, secondary to metabolic encephalopathy with suspected stroke, also significantly improved patient is awake and oriented Anion gap metabolic acidosis Hypothyroidism Acute on chronic Systolic CHF , ejection fraction 45-50% Severe Pulmonary HTN History of Blood in the stool Type 2 diabetes mellitus poorly controlled with hyperglycemia Peripheral neuropathy CKD stage III Obstructive sleep apnea Possible obesity hypoventilation syndrome History of MRSA of the right shoulder Degenerative joint disease Morbid obesity with BMI 47.1 Plan: This is a pleasant 49 years old male who presents with left heel diabetic ulcer and osteomyelitis, renal failure and pulmonary congestion. Continue with antibiotics per ID team. Continue with IV Lasix. Nephrology and pulmonary consult. Continue with oxygen as needed, Patient is undergoing hemodialysis. Also Labs and medication were reviewed.. Continue same treatment. Continue with symptomatic treatment. Resume home medication. Monitor lytes and vitals. DVT and GI prophylaxis. Further recommendations of the clinical course of the patient DVT prophylaxis: Subcutaneous heparin GI Prophylaxis: Pepcid Prognosis is guarded
[2020-03-03] MEDS: ASPIRIN 81 MG PO SCH (14:14)
[2020-03-03 14:48] VITALS: BMI 38.9
[2020-03-03] MEDS ORDERED: fentaNYL (PF) 50 MCG/ML 2 ML AMP IVP ONE (15:09)
[2020-03-03] MEDS ORDERED: MIDAZOLAM 2 MG/2 ML VIAL IVP ONE (15:09)
[2020-03-03] MEDS ORDERED: LIDOCAINE 1% INJ 10MG/ML (20 ML MDV) SQ ONE ×2 (15:09→15:18)
[2020-03-03] MEDS ORDERED: IV FLUID CONTINUATION 200 ML IV ONE (15:20)
--- NOTE | 2020-03-03 15:23 | PN ---
PROGRESS NOTE Patient is seen for followup for acute kidney injury on top of chronic kidney disease. The patient is currently seen on dialysis. He is tolerating his treatment well. PHYSICAL EXAMINATION: Patient is comfortable, awake, not in any acute distress. Blood pressure was 96/71, heart rate 77 per minute. Patient is afebrile. EXAMINATION OF THE HEART: S1 and S2. EXAMINATION OF LUNGS: Bilateral breath sounds are heard. ABDOMEN: Soft, non-tender. Examination of lower extremities shows bilateral extremities to be wrapped. Chronic skin changes noted. No edema is seen. EXECUTIVE COMPENSATION ANALYST exam is grossly intact. LABS: Labs from 03/01 show hemoglobin 8.3, sodium 137, potassium 3.7, creatinine 3.1. ASSESSMENT: 1. Acute kidney injury, acute tubular necrosis, currently oliguric, maintained on dialysis. We will continue with outpatient hemodialysis and monitor recovery of renal function as outpatient. 2. Volume overload, currently significantly improved. 3. Encephalopathy, possible cerebrovascular accident/transient ischemic attack, currently improved. 4. Left heel diabetic ulcer, status post debridement, with bilateral lower extremity cellulitis and osteomyelitis of the left calcaneal bone. 5. Metabolic acidosis. 6. Cardiomyopathy, ejection fraction 45% to 50%. 7. Severe pulmonary hypertension. 8. Chronic kidney disease, stage 3. Previous creatinine as low as 1.0. 9. History of dialysis-dependent acute kidney injury previously. PLAN: Proceed with outpatient chair time placement and placement of permanent dialysis catheter. We will monitor recovery of renal function as outpatient. MMODL / IJN: [id number] /
[2020-03-03 16:29] LABS: Glucose,Whole Blood 156 mg/dL (75-99)
--- NOTE | 2020-03-03 16:29 | PN ---
PROGRESS NOTE DATE OF SERVICE: 03/03/2020 REASON FOR FOLLOWUP: Left heel osteomyelitis. INTERVAL HISTORY: The patient is currently afebrile. The patient is undergoing hemodialysis. The patient denies having any chest pain or shortness of breath or cough. No nausea, no vomiting, no abdominal pain or pain to the left heel area. PHYSICAL EXAMINATION: Blood pressure is 91/59 with a pulse of 71, temperature 96.7. He is 97% on room air. General description is a middle-aged male lying in bed in no distress. RESPIRATORY SYSTEM: Unlabored breathing. Clear to auscultation anteriorly. HEART: S1, S2. Regular rate and rhythm. ABDOMEN: Soft. No tenderness. Left heel is currently dressed up. No obvious drainage on the dressing. LABS: No new labs have been obtained today. DIAGNOSTIC IMPRESSION AND PLAN: Patient with a left heel chronic nonhealing wound with underlying osteomyelitis. The patient is currently covered with cefepime and Flagyl based on previous culture. Local care with [facility]. Await surgical debridement. Continue with supportive care. MMODL / IJN: [id number] /
--- NOTE | 2020-03-03 17:49 | XR ---
EXAMINATION TYPE: XR chest 1V confirm [facility] DATE OF EXAM: 03/03/2020 COMPARISON: 02/29/2020 HISTORY: Check line placement TECHNIQUE: Single view FINDINGS: There is dual-lumen left side central venous catheter with tip in the right atrium. There i s minimal pulmonary interstitial edema in the lower lung hameed. There is no pneumothorax. Trachea is midline. IMPRESSION: Catheter in good position. There is improvement in the pulmonary edema compared to recent exam.
--- NOTE | 2020-03-03 18:13 | OP ---
OPERATIVE REPORT PREOPERATIVE DIAGNOSIS: Acute on chronic renal failure. PROCEDURE: 1. Attempted right IJ catheter which is occluded. Then left IJ 28 cm dialysis catheter. 2. Removal of the left femoral dialysis catheter. SEDATION TIME: 42 minutes. DESCRIPTION OF PROCEDURE: This patient was brought to the laboratory mechanical technician. Right and left sides of the neck were prepped and draped in a sterile manner. Lidocaine 1% was infiltrated into the neck area. Ultrasound-guided micropuncture was introduced into into the right jugular vein and micropuncture guidewire was passed. We could not advance the guidewire. The patient had a dialysis catheter in the past. Another attempt was made, but we could not advance the guidewire. Then we decided to go on the left side. Lidocaine 1% was infiltrated into the left side. Ultrasound-guided micropuncture was introduced into the left jugular vein. Micropuncture guidewire was passed and 4-Setswana dilator advanced on the top of the guidewire. Then we passed a regular guidewire, which was parked in the inferior vena cava. A tunnel was created. Through the tunnel we brought a 28 cm dialysis catheter. Dilators were advanced and sheath was advanced on the top of the guidewire. Through the sheath we introduced the dialysis catheter. Tip of the catheter was in the superior vena cavoatrial junction. Guidewire was removed flushed with heparin saline and hep-locked and secured with 3-0 nylon. Then the left groin was prepped and temporary dialysis catheter was removed. Pressure was held. Patient tolerated the procedure well. MMODL / IJN: [id number] /
[2020-03-03 19:39] LABS: Glucose,Whole Blood 201 mg/dL (75-99)
[2020-03-03] MEDS: INSULIN DETEMIR (LEVEMIR) 100 UNIT/ML SYR SQ SCH (21:19)
[2020-03-04 06:36] LABS: Glucose,Whole Blood 151 mg/dL (75-99)
[2020-03-04] MEDS: carvediloL 12.5 MG TAB PO SCH ×2 (06:47→16:57)
[2020-03-04] MEDS: INSULIN ASPART (NovoLOG) 100 UNIT/ML VIAL SQ SCH ×4 (06:47→20:24)
[2020-03-04] MEDS: LEVOTHYROXINE 75 MCG TAB PO SCH (06:47)
[2020-03-04] MEDS: metroNIDAZOLE 500 MG TAB PO SCH ×3 (10:46→23:08)
[2020-03-04] MEDS: CEFEPIME 1 GM in SODIUM CHLORIDE 0.9% 50 ML IVPB SCH ×2 (10:46→20:24)
[2020-03-04] MEDS: MULTIVITAMINS, THERA 1 EACH TAB PO SCH (10:46)
[2020-03-04] MEDS: ASPIRIN 81 MG PO SCH (10:46)
[2020-03-04] MEDS: SODIUM BICARBONATE TAB 650 MG TAB PO SCH ×4 (10:46→23:08)
[2020-03-04] MEDS: FAMOTIDINE 20 MG TAB PO SCH (10:46)
[2020-03-04] MEDS: HEPARIN SODIUM,PORCINE 5,000 UNIT/ML 1 ML VIAL SQ SCH ×2 (10:47→20:24)
--- NOTE | 2020-03-04 11:13 | PN ---
PROGRESS NOTE Patient is seen for followup for acute kidney injury, currently hemodialysis dependent. Patient had an IJ catheter placed with a left IJ catheter. He is scheduled for hemodialysis tomorrow. He is set up for outpatient chair time for dialysis. PHYSICAL EXAMINATION: Patient is comfortable, awake, not in any acute distress. Blood pressure is 100/65, heart rate of 65 per minute, he is afebrile. Examination of the heart, S1, S2. Examination of the lungs, bilateral breath sounds are heard. Abdomen is soft, obese. Examination of the lower extremities shows much improved edema. The legs are wrapped. Chronic skin changes noted BOOT LINER MAKER exam grossly intact. LABS: Not available from today. ASSESSMENT: 1. Acute kidney injury ATN currently oliguric, maintained on dialysis. Continue outpatient dialysis and monitor for recovery of renal function as outpatient. 2. Chronic kidney disease stage 3 baseline creatinine about 1.0. 3. History of dialysis dependent acute renal failure about 3-4 months ago. 4. Mental status changes, now resolved. 5. Status post cardiac arrest. 6. Left heel diabetic ulcer, status post debridement with bilateral lower extremity cellulitis and osteomyelitis of the left heel and bone. 7. Cardiomyopathy, ejection fraction 45% to 50%. 8. Severe pulmonary hypertension. PLAN: Hemodialysis in a.m. Proceed with outpatient placement. MMODL / IJN: [id number] /
[2020-03-04 12:04] LABS: Glucose,Whole Blood 185 mg/dL (75-99)
[2020-03-04] MEDS: FUROSEMIDE 10 MG/ML 10 ML VIAL IV SCH ×2 (12:37→20:24)
--- NOTE | 2020-03-04 14:18 | IR ---
EXAMINATION TYPE: IR cvc insert central tunneled DATE OF EXAM: 03/03/2020 COMPARISON: NONE HISTORY: Dialysis catheter placement, renal failure Fluoroscopy support supplied to the referring clinician. See dictated report from vascular surgery, 2.9 minutes fluoroscopy time, 222 intraoperative images
--- NOTE | 2020-03-04 14:44 | P.PN ---
Subjective This 49 years old male with multiple medical problems who was admitted on 02/01 for bilateral leg cellulitis and sepsis, patient history of wound and debridement of the heel and possible osteomyelitis per Bone scan. Patient hospital course was complicated by "stroke which was called on 02/08, patient had global aphasia with negative CT of the brain and CTA of the brain which were nondiagnostic. No MRI could be done because of his body habitus. Patient also found to have severe tricuspid regurgitation and severe pulmonary hypertension. Patient developed acute hypoxic respiratory failure and he was in the ICU treated with BiPAP. Increase intercranial pressure was suspected but the guardian did not approve lumbar puncture to be done, eventually patient was made DO NOT RESUSCITATE and guardian and family opted for no procedure, eventually patient was already accepted by [facility] hospice team , however the last 2 days patient started waking up and he was alert awake and oriented to time place and person, he was short of breath and complaining from pain in his left leg, after discussion with the family and the patient they wanted to revoke hospice care and they want patient to be treated therefore patient will be discharged from hospice care and will be admitted under medicine Currently patient is awake and alert to time, place and person, he no at least [facility] in [place] and it is January 2020, and he noted name of the president troponin Patient is short of breath and he has difficulty finishing his sentences, how ever he is on 2 L oxygen via nasal cannula with oxygen saturation in 90s. Chest x-ray showing bilateral pulmonary congestion and patient is provided with Lasix 40 mg twice daily. His antibiotics including cefepime and Flagyl resumed and infectious disease were consulted for further recommendation. His creatinine has trended up to 5.24, compared to 1.9 on 02/01, Silk Screen Repairer team consulted. Also pulmonary team were consulted as they have evaluated him before. Consult has been placed for murray Gr as he is known to the service and has been evaluated by Dr. Mcgraw. Patient was on insulin at home, we'll start him on Levemir 5 units at bedtime plus insulin sliding scale Patient is with Josue catheter 02/28/2020 patient was started on hemodialysis on 02/22 and his swelling has significantly improved, however his speech is still interrupted and lagging when he talks, most likely related to previous stroke rather than shortness of breath He still have wounds and cellulitis in the left lower extremity which is improving. No abdominal pain or chest pain. Nephrology on the case for his acute kidney injury and he is already started on dialysis. Still has diarrhea. Labs reviewed, Vitals stable Physical on cefepime and Flagyl. His sugars controlled on Levemir 5 units plus insulin sliding scale 02/29/2020 Patient remains in the ICU, he is awake and alert with no dyspnea, no cough or phlegm, no chest pain Still has diarrhea with brown stool, he has rectal tube with backfill already in the morning and needs to be changed He denies abdominal pain, no nausea vomiting and he is tolerating diet well. Patient continued to be on hemodialysis 03/01/2020 Patient in the ICU, awake and alert, no much change clinically from yesterday. He's afebrile and blood pressure is 111/63. He was hypoxic at 89% on room air this morning, was placed back on 2 L oxygen via nasal cannula. Were un remarkable this morning include a CBC and BMP and liver enzymes, his creatinine is stable at 3.1 and his sugars controlled. He is on Lasix 60 mg IV twice daily We are going to re-consult vascular surgery Dr. Hernández for reevaluation of his left lower extremity for any possible surgical intervention 03/02/2020 Patient is seen in the ICU as placement overflow to the general medical floor. Clinically stable with no change. He still have significant infection in the left lower extremity and is still on antibiotics with Flagyl and cefepime as per ID team recommendation. Today I discussed the case with Dr. Hernández who did debridement for him earlier and his debridement went down to the bone, patient probably will need palpitation at some point however as per Dr. Hernández patient can be discharged and follow-up with him in the office in one week. Patient is getting hemodialysis tomorrow. We will discuss plan with other consultants. Possible discharge in 24-48 hours if remains stable 03/03/2020 Patient clinically stable, no new complaints. Vital signs labs are stable as well. There were discussed and discharge plans with other consultants however nephrology team will prefer placement of permanent dialysis catheter and his IJ, vascular surgery were consulted for this reason as well and Dr. Hernández is aware as per staff. Patient will need to follow-up with Dr. Hernández for evaluation of his left foot infection which might need further debridement and he agrees. Patient currently on Lasix 60 mg IV twice daily 2. Possible discharge in 24-48 hours after dialysis 03/04/20 patient has doses catheter placed in his left upper chest yesterday and hysterectomy that well, also has left PICC line which probably he needs to keep because he needs IV antibiotics. Patient still need to be evaluated by Dr. Hernández tomorrow for his left heel wound for possible more debridement versus outpatient follow-up, so patient is medically stable for discharge. Possible discharge in 24-40 at hours if his problems solved and he is keeping stable Objective - Vital Signs Vital signs: Vital Signs Temp 97.7 F 03/04/20 13:41 Pulse 69 03/04/20 13:41 Resp 16 03/04/20 13:41 BP 88/51 03/04/20 13:41 Pulse Ox 100 03/04/20 13:41 Intake & Output 03/03/20 03/04/20 03/04/20 18:59 06:59 18:59 Intake Total 1033 120 Output Total 1999 2 Balance -967 118 Weight 109.5 kg Intake: IV 325 0.9 200 Cefepime 1 gm In Sodium 50 Chloride 0.9% 50 ml @ 12. 5 mls/hr IVPB Q12HR [facility] Rx#:[id number] Oral 708 120 Output: Stool 2 Hemodialysis 1999 Other: Voiding Method Indwelling Catheter Indwelling Catheter # Voids 1 1 # Bowel Movements 2 1 - Exam GENERAL: The patient is alert and oriented x3, not in any acute distress. Morbidly obese HEENT: Pupils are round and equally reacting to light. EOMI. No scleral icterus. No conjunctival pallor. Normocephalic, atraumatic. No pharyngeal erythema. No thyromegaly. CARDIOVASCULAR: S1 and S2 present. No murmurs, rubs, or gallops. PULMONARY: Chest is clear to auscultation, no wheezing or crackles. ABDOMEN: Soft, nontender, nondistended, normoactive bowel sounds. No palpable organomegaly. MUSCULOSKELETAL: No joint swelling or deformity. -EXTREMITIES: No cyanosis, clubbing, or pedal edema. Bilateral heel wounds and especially with black eschar on the left heel, dressing is in place NEUROLOGICAL: Gross neurological examination did not reveal any focal deficits. SKIN: No rashes. no petechiae. - Labs CBC & Chem 7: 03/01/20 04:35 03/01/20 04:35 Labs: Abnormal Lab Results - Last 24 Hours (Table) 03/03/20 03/03/20 03/04/20 Range/Units 16:27 19:33 06:31 POC Glucose (mg/dL) 156 H 201 H 151 H (75-99) mg/dL 03/04/20 Range/Units 11:39 POC Glucose (mg/dL) 185 H (75-99) mg/dL Assessment and Plan Assessment: Bilateral lower extremity cellulitis and osteomyelitis of the left calcaneal bone, with Left heel diabetic ulcer, status post debridement Acute hypoxic hypercapnic respiratory failure, secondary to pulmonary congestion as well as sepsis from his bilateral leg cellulitis and osteomyelitis, and severe pulmonary hypertension Acute kidney injury Altered mental status, secondary to metabolic encephalopathy with suspected stroke, also significantly improved patient is awake and oriented Anion gap metabolic acidosis Hypothyroidism Acute on chronic Systolic CHF , ejection fraction 45-50% Severe Pulmonary HTN History of Blood in the stool Type 2 diabetes mellitus poorly controlled with hyperglycemia Peripheral neuropathy CKD stage III Obstructive sleep apnea Possible obesity hypoventilation syndrome History of MRSA of the right shoulder Degenerative joint disease Morbid obesity with BMI 47.1 Plan: This is a pleasant 49 years old male who presents with left heel diabetic ulcer and osteomyelitis, renal failure and pulmonary congestion. Continue with antibiotics per ID team. Continue with IV Lasix. Nephrology and pulmonary consult. Continue with oxygen as needed, Patient is undergoing hemodialysis. Also Labs and medication were reviewed.. Continue same treatment. Continue with symptomatic treatment. Resume home medication. Monitor lytes and vitals. DVT and GI prophylaxis. Further recommendations of the clinical course of the patient DVT prophylaxis: Subcutaneous heparin GI Prophylaxis: Pepcid Prognosis is guarded
[2020-03-04] MEDS: ACETAMINOPHEN TAB 325 MG TAB PO PRN ×2 (15:28→23:31)
[2020-03-04] MEDS: COLLAGENASE 250 UNIT/GM OINTMENT 30 GM TUBE TOPICAL SCH ×2 (16:34→21:31)
[2020-03-04 17:09] LABS: Glucose,Whole Blood 344 mg/dL (75-99)
--- NOTE | 2020-03-04 19:55 | PN ---
PROGRESS NOTE DATE OF SERVICE: 03/04/2020 REASON FOR FOLLOWUP: Left heel osteomyelitis. INTERVAL HISTORY: The patient is currently afebrile. The patient is breathing comfortably. The patient denies having any chest pain or cough. No nausea, no vomiting, no abdominal pain or diarrhea. The patient did have debridement early this morning by Surgery. PHYSICAL EXAMINATION: Blood pressure is 108/65 with a pulse of 75, temperature 98.4. He is 95% on room air. General description is a middle-aged male lying in bed in no distress. RESPIRATORY SYSTEM: Unlabored breathing. Clear to auscultation anteriorly. HEART: S1, S2. Regular rate and rhythm. ABDOMEN: Soft. No tenderness. Left heel is currently dressed. No obvious drainage on the dressing. LABS: No new labs have been obtained today. DIAGNOSTIC IMPRESSION AND PLAN: Patient with left heel osteomyelitis. Previous culture and debridement did show Morganella, streptococcus and anaerobes. Patient is covered with cefepime, vancomycin and Flagyl; to continue for a total of 6 weeks. Local wound care per Surgery. Continue with supportive care. MMODL / IJN: [id number] /
[2020-03-04 20:06] LABS: Glucose,Whole Blood 250 mg/dL (75-99)
[2020-03-04] MEDS: INSULIN DETEMIR (LEVEMIR) 100 UNIT/ML SYR SQ SCH (20:23)
[2020-03-04] MEDS ORDERED: INSULIN DETEMIR (LEVEMIR) 100 UNIT/ML SYR SQ ONE (22:00)
[2020-03-05] MEDS: LEVOTHYROXINE 75 MCG TAB PO SCH (05:29)
[2020-03-05 07:06] LABS: Glucose,Whole Blood 228 mg/dL (75-99)
[2020-03-05] MEDS: SODIUM BICARBONATE TAB 650 MG TAB PO SCH ×4 (08:32→21:41)
[2020-03-05] MEDS: FAMOTIDINE 20 MG TAB PO SCH (08:32)
[2020-03-05] MEDS: carvediloL 12.5 MG TAB PO SCH ×2 (08:32→17:21)
[2020-03-05] MEDS: HEPARIN SODIUM,PORCINE 5,000 UNIT/ML 1 ML VIAL SQ SCH ×2 (08:32→21:11)
[2020-03-05] MEDS: ASPIRIN 81 MG PO SCH (08:32)
[2020-03-05] MEDS: MULTIVITAMINS, THERA 1 EACH TAB PO SCH (08:32)
[2020-03-05] MEDS: FUROSEMIDE 10 MG/ML 10 ML VIAL IV SCH ×2 (08:32→21:11)
[2020-03-05] MEDS: INSULIN ASPART (NovoLOG) 100 UNIT/ML VIAL SQ SCH ×4 (08:32→21:56)
[2020-03-05] MEDS: metroNIDAZOLE 500 MG TAB PO SCH ×3 (08:32→23:34)
[2020-03-05] MEDS: CEFEPIME 1 GM in SODIUM CHLORIDE 0.9% 50 ML IVPB SCH ×2 (10:40→21:12)
[2020-03-05 11:23] LABS: Glucose,Whole Blood 174 mg/dL (75-99)
--- NOTE | 2020-03-05 14:58 | PN ---
PROGRESS NOTE Patient is seen for followup for acute kidney injury, currently hemodialysis dependent. Patient is being dialyzed today. He is seen on hemodialysis, tolerating his treatment well. The plan is for discharge to [facility] on a TTS schedule. PHYSICAL EXAMINATION: Blood pressure is 124/79, heart rate 72 per minute, patient is afebrile. Examination of the heart S1, S2. Examination of the lungs, bilateral breath sounds are heard. Abdomen is soft, obese. Examination of lower extremities shows no significant edema. Legs are wrapped. Chronic skin changes noted. RECRUITMENT ASSISTANT exam grossly intact, patient is moving all 4 extremities. ASSESSMENT: 1. Acute kidney injury, ATN currently hemodialysis dependent. The patient is nonoliguric; however, urine output is on the lower side. We will continue to monitor for recovery of renal function. 2. Chronic kidney disease stage 3, baseline creatinine about 1. 3. Recent acute kidney injury about 3-4 months ago requiring dialysis with complete recovery of renal function. 4. Status post cardiac arrest. 5. Left heel diabetic ulcer, status post debridement with bilateral lower extremity cellulitis and osteomyelitis of the left heel. 6. Cardiomyopathy, ejection fraction 45% to 50%. 7. Severe pulmonary hypertension. 8. Volume overload, currently improved. PLAN: Repeat a short treatment of hemodialysis tomorrow, prior to discharge and patient can be dialyzed on Sunday as outpatient. MMODL / IJN: [id number] /
[2020-03-05 17:02] LABS: Glucose,Whole Blood 198 mg/dL (75-99)
[2020-03-05 17:08] LABS: Glucose,Whole Blood 214 mg/dL (75-99)
[2020-03-05] MEDS: DARBEPOETIN ALFA 40 MCG/0.4 ML SYRINGE SQ SCH (17:21)
--- NOTE | 2020-03-05 18:37 | PN ---
PROGRESS NOTE DATE OF SERVICE: 03/05/2020 REASON FOR FOLLOWUP: Left heel osteomyelitis. INTERVAL HISTORY: The patient is currently afebrile. The patient is breathing comfortably. The patient denies having any chest pain or shortness of breath or cough. No nausea or vomiting. No abdominal pain or pain to the left heel. PHYSICAL EXAMINATION: Blood pressure 110/67 with a pulse of 72, temperature 97.6. He is 100% on 2 L nasal cannula. General description is a middle-aged male lying in bed in no distress. RESPIRATORY SYSTEM: Unlabored breathing. Clear to auscultation anteriorly. HEART: S1, S2. Regular rate and rhythm. ABDOMEN: Soft. No tenderness. Left heel is currently dressed. No obvious drainage on the dressing. LABS: No new labs have been obtained today. DIAGNOSTIC IMPRESSION AND PLAN: Patient with left heel osteomyelitis with previous surgical debridement. Cultures were positive for Morganella, strep and anaerobes. Patient is covered with cefepime and Flagyl. Continue local wound care per Surgery. Keep the area off pressure. Continue with supportive care. MMODL / IJN: [id number] /
[2020-03-05] MEDS ORDERED: INSULIN DETEMIR (LEVEMIR) 100 UNIT/ML SYR SQ SCH (21:00)
[2020-03-05 21:05] LABS: Glucose,Whole Blood 286 mg/dL (75-99)
--- NOTE | 2020-03-05 21:31 | P.PN ---
Subjective This 49 years old male with multiple medical problems who was admitted on 02/01 for bilateral leg cellulitis and sepsis, patient history of wound and debridement of the heel and possible osteomyelitis per Bone scan. Patient hospital course was complicated by "stroke which was called on 02/08, patient had global aphasia with negative CT of the brain and CTA of the brain which were nondiagnostic. No MRI could be done because of his body habitus. Patient also found to have severe tricuspid regurgitation and severe pulmonary hypertension. Patient developed acute hypoxic respiratory failure and he was in the ICU treated with BiPAP. Increase intercranial pressure was suspected but the guardian did not approve lumbar puncture to be done, eventually patient was made DO NOT RESUSCITATE and guardian and family opted for no procedure, eventually patient was already accepted by [facility] hospice team , however the last 2 days patient started waking up and he was alert awake and oriented to time place and person, he was short of breath and complaining from pain in his left leg, after discussion with the family and the patient they wanted to revoke hospice care and they want patient to be treated therefore patient will be discharged from hospice care and will be admitted under medicine Currently patient is awake and alert to time, place and person, he no at least [facility] in [place] and it is January 2020, and he noted name of the president troponin Patient is short of breath and he has difficulty finishing his sentences, how ever he is on 2 L oxygen via nasal cannula with oxygen saturation in 90s. Chest x-ray showing bilateral pulmonary congestion and patient is provided with Lasix 40 mg twice daily. His antibiotics including cefepime and Flagyl resumed and infectious disease were consulted for further recommendation. His creatinine has trended up to 5.24, compared to 1.9 on 02/01, Fashion Styling Intern team consulted. Also pulmonary team were consulted as they have evaluated him before. Consult has been placed for murray Gr as he is known to the service and has been evaluated by Dr. Mcgraw. Patient was on insulin at home, we'll start him on Levemir 5 units at bedtime plus insulin sliding scale Patient is with Josue catheter 02/28/2020 patient was started on hemodialysis on 02/22 and his swelling has significantly improved, however his speech is still interrupted and lagging when he talks, most likely related to previous stroke rather than shortness of breath He still have wounds and cellulitis in the left lower extremity which is improving. No abdominal pain or chest pain. Nephrology on the case for his acute kidney injury and he is already started on dialysis. Still has diarrhea. Labs reviewed, Vitals stable Physical on cefepime and Flagyl. His sugars controlled on Levemir 5 units plus insulin sliding scale 02/29/2020 Patient remains in the ICU, he is awake and alert with no dyspnea, no cough or phlegm, no chest pain Still has diarrhea with brown stool, he has rectal tube with backfill already in the morning and needs to be changed He denies abdominal pain, no nausea vomiting and he is tolerating diet well. Patient continued to be on hemodialysis 03/01/2020 Patient in the ICU, awake and alert, no much change clinically from yesterday. He's afebrile and blood pressure is 111/63. He was hypoxic at 89% on room air this morning, was placed back on 2 L oxygen via nasal cannula. Were un remarkable this morning include a CBC and BMP and liver enzymes, his creatinine is stable at 3.1 and his sugars controlled. He is on Lasix 60 mg IV twice daily We are going to re-consult vascular surgery Dr. Hernández for reevaluation of his left lower extremity for any possible surgical intervention 03/02/2020 Patient is seen in the ICU as placement overflow to the general medical floor. Clinically stable with no change. He still have significant infection in the left lower extremity and is still on antibiotics with Flagyl and cefepime as per ID team recommendation. Today I discussed the case with Dr. Hernández who did debridement for him earlier and his debridement went down to the bone, patient probably will need palpitation at some point however as per Dr. Hernández patient can be discharged and follow-up with him in the office in one week. Patient is getting hemodialysis tomorrow. We will discuss plan with other consultants. Possible discharge in 24-48 hours if remains stable 03/03/2020 Patient clinically stable, no new complaints. Vital signs labs are stable as well. There were discussed and discharge plans with other consultants however nephrology team will prefer placement of permanent dialysis catheter and his IJ, vascular surgery were consulted for this reason as well and Dr. Hernández is aware as per staff. Patient will need to follow-up with Dr. Hernández for evaluation of his left foot infection which might need further debridement and he agrees. Patient currently on Lasix 60 mg IV twice daily 2. Possible discharge in 24-48 hours after dialysis 03/04/20 patient has doses catheter placed in his left upper chest yesterday and hysterectomy that well, also has left PICC line which probably he needs to keep because he needs IV antibiotics. Patient still need to be evaluated by Dr. Hernández tomorrow for his left heel wound for possible more debridement versus outpatient follow-up, so patient is medically stable for discharge. Possible discharge in 24-40 at hours if his problems solved and he is keeping stable 03/05/20 Patient clinically stable, I discussed the case with consultants and cleared him for discharge however machine feed operator for elective patient to get hemodialysis tomorrow prior to discharge. Hemodynamically stable and left subacute Objective - Vital Signs Vital signs: Vital Signs Temp 98.1 F 03/05/20 19:58 Pulse 67 03/05/20 20:01 Resp 20 03/05/20 20:01 BP 121/81 03/05/20 19:58 Pulse Ox 100 03/05/20 19:58 Intake & Output 03/05/20 03/05/20 03/06/20 06:59 18:59 06:59 Intake Total 1610 1130 Output Total 1600 Balance 1610 -470 Intake: IV 60 50 Cefepime 1 gm In Sodium 50 50 Chloride 0.9% 50 ml @ 12. 5 mls/hr IVPB Q12HR [facility] Rx#:[id number] Invasive Line 1 10 Oral 1550 1080 Output: Urine 100 Hemodialysis 1500 Other: Voiding Method Indwelling Catheter Indwelling Catheter # Bowel Movements 2 3 - Exam GENERAL: The patient is alert and oriented x3, not in any acute distress. Morbidly obese HEENT: Pupils are round and equally reacting to light. EOMI. No scleral icterus. No conjunctival pallor. Normocephalic, atraumatic. No pharyngeal erythema. No thyromegaly. CARDIOVASCULAR: S1 and S2 present. No murmurs, rubs, or gallops. PULMONARY: Chest is clear to auscultation, no wheezing or crackles. ABDOMEN: Soft, nontender, nondistended, normoactive bowel sounds. No palpable organomegaly. MUSCULOSKELETAL: No joint swelling or deformity. -EXTREMITIES: No cyanosis, clubbing, or pedal edema. Bilateral heel wounds and especially with black eschar on the left heel, dressing is in place NEUROLOGICAL: Gross neurological examination did not reveal any focal deficits. SKIN: No rashes. no petechiae. - Labs CBC & Chem 7: 03/01/20 04:35 03/01/20 04:35 Labs: Abnormal Lab Results - Last 24 Hours (Table) 03/05/20 03/05/20 03/05/20 Range/Units 07:02 11:21 17:00 POC Glucose (mg/dL) 228 H 174 H 198 H (75-99) mg/dL 03/05/20 03/05/20 Range/Units 17:07 21:02 POC Glucose (mg/dL) 214 H 286 H (75-99) mg/dL Assessment and Plan Assessment: Bilateral lower extremity cellulitis and osteomyelitis of the left calcaneal bone, with Left heel diabetic ulcer, status post debridement Acute hypoxic hypercapnic respiratory failure, secondary to pulmonary congestion as well as sepsis from his bilateral leg cellulitis and osteomyelitis, and severe pulmonary hypertension Acute kidney injury Altered mental status, secondary to metabolic encephalopathy with suspected stroke, also significantly improved patient is awake and oriented Anion gap metabolic acidosis Hypothyroidism Acute on chronic Systolic CHF , ejection fraction 45-50% Severe Pulmonary HTN History of Blood in the stool Type 2 diabetes mellitus poorly controlled with hyperglycemia Peripheral neuropathy CKD stage III Obstructive sleep apnea Possible obesity hypoventilation syndrome History of MRSA of the right shoulder Degenerative joint disease Morbid obesity with BMI 47.1 Plan: This is a pleasant 49 years old male who presents with left heel diabetic ulcer and osteomyelitis, renal failure and pulmonary congestion. Continue with antibiotics per ID team. Continue with IV Lasix. Nephrology and pulmonary consult. Continue with oxygen as needed, Patient is undergoing hemodialysis. Also Labs and medication were reviewed.. Continue same treatment. Continue with symptomatic treatment. Resume home medication. Monitor lytes and vitals. DVT and GI prophylaxis. Further recommendations of the clinical course of the patient DVT prophylaxis: Subcutaneous heparin GI Prophylaxis: Pepcid Prognosis is guarded
[2020-03-05] MEDS ORDERED: INSULIN DETEMIR (LEVEMIR) 100 UNIT/ML SYR SQ ONE (22:49)
[2020-03-05] MEDS: COLLAGENASE 250 UNIT/GM OINTMENT 30 GM TUBE TOPICAL SCH (23:31)
[2020-03-06] MEDS: LEVOTHYROXINE 75 MCG TAB PO SCH (05:58)
[2020-03-06 07:14] LABS: Glucose,Whole Blood 225 mg/dL (75-99)
[2020-03-06] MEDS: INSULIN ASPART (NovoLOG) 100 UNIT/ML VIAL SQ SCH ×2 (08:26→13:08)
[2020-03-06] MEDS: SODIUM BICARBONATE TAB 650 MG TAB PO SCH ×2 (09:21→13:07)
--- NOTE | 2020-03-06 10:53 | P.DS ---
Providers Date of admission: 02/16/20 15:38 Attending physician: Juan Diego De La Torre Consults: 02/16/20 18:57 Consult Physician Urgent Consulting Provider: Yasemin Ohara Consult Reason/Comments: osteomyelitis/known to patient Do you want consulting provider notified?: Yes Placement Type Exists?: Yes 02/16/20 19:01 Consult Physician Routine Consulting Provider: Alta Barfield Consult Reason/Comments: renal failure Do you want consulting provider notified?: Yes Consult Physician Urgent Consulting Provider: Etienne Brown Consult Reason/Comments: shortness of breath Do you want consulting provider notified?: Yes 02/23/20 09:33 Consult Physician Urgent Consulting Provider: Caleb Hernández Consult Reason/Comments: permacath placement today please for hemodialysis Do you want consulting provider notified?: Yes 03/01/20 08:39 Consult Physician Routine Consulting Provider: Caleb Hernández Consult Reason/Comments: evaluate left foot/leg for potential further intervention Do you want consulting provider notified?: Yes Primary care physician: Edson Urias Hospital Course: Diagnoses: Bilateral lower extremity cellulitis and osteomyelitis of the left calcaneal bone, with Left heel diabetic ulcer, status post debridement Acute systolic CHF with ejection fraction 45-50% Acute hypoxic hypercapnic respiratory failure, secondary to pulmonary congestion as well as sepsis from his bilateral leg cellulitis and osteomyelitis, and severe pulmonary hypertension Acute kidney injury, patient was started on hemodialysis, with dialysis catheter lives in the left upper chest prior to discharge Altered mental status, secondary to metabolic encephalopathy with suspected stroke, also significantly improved patient is awake and oriented upon discharge Anion gap metabolic acidosis Hypothyroidism Acute on chronic Systolic CHF , ejection fraction 45-50% Severe Pulmonary HTN History of Blood in the stool Type 2 diabetes mellitus poorly controlled with hyperglycemia Peripheral neuropathy CKD stage III Obstructive sleep apnea Possible obesity hypoventilation syndrome History of MRSA of the right shoulder Degenerative joint disease Morbid obesity with BMI 47.1 Hospital course: This 49 years old male with multiple medical problems who was admitted on 02/01 for bilateral leg cellulitis and sepsis, patient history of lower ext wound and debridement of the heel and possible osteomyelitis per Bone scan. Patient hospital course was complicated by "stroke with code stroke was called on 02/08, patient had global aphasia with negative CT of the brain and CTA of the brain which were nondiagnostic. No MRI could be done because of his body habitus. Patient also found to have severe tricuspid regurgitation and severe pulmonary hypertension. Patient developed acute hypoxic respiratory failure and he was in the ICU treated with BiPAP. Increase intercranial pressure was suspected but the guardian did not approve lumbar puncture to be done, eventually patient was made DO NOT RESUSCITATE and guardian and family opted for no procedure, eventually patient was already accepted by [facility] hospice team , however a few days later patient started waking up and he was alert awake and oriented to time place and person, he was short of breath and complaining from pain in his left leg, after discussion with the family and the patient they wanted to revoke hospice care and they want patient to be treated therefore patient will be discharged from hospice care and will be admitted under medicine service. Repeat labs showed creatinine has trended up to 5.24, compared to 1.9 on 02/01, Nurse Transplant team consulted. And eventually patient needing to start hemodialysis. Infectious disease was on the case and his been treated his left lower extremity infection and osteomyelitis with cefepime and Flagyl based on the culture results as per infectious disease recommendation. Vascular surgery did debridement of his left lower extremity which is showing infection as deep as the bone, patient is at-risk of foot amputation if no improvement. However patient states that he was nonambulatory for several months prior to this admission. Also needed admission to the ICU for short time because of his hypercapnic hypoxic respiratory failure however he did not need intubation and eventually his breathing improved and he is back to his baseline. Where he is alert awake and oriented to time place and person, his speech is a little bit delayed and interrupted and that was since I saw him when he was at hospice and woke up from his possible stroke. No other new complaint and patient eventually was cleared for discharge by all consultants including pulmonary, infectious disease, nephrology and vascular surgery services Problems and management plan were discussed with the patient and he verbalized understanding and acceptance Patient was found stable and can be discharged home however he needs follow-up as an outpatient. Patient was instructed to follow up with PCP within one week and patient agrees Gen: patient is a AAOx3, no distress. Morbidly obese CVS: S1-S2, RRR, no murmur Lungs: B/L CTA, no wheezing Abdomen: soft, no distention, no tenderness, positive bowel sounds Extremity: Bilateral leg swelling with left heel deep wound, and cellulitis improving Time spent more than 35 minutes Plan - Discharge Summary Discharge Rx Participant: No New Discharge Prescriptions: New Heparin Sodium,Porcine [Heparin Sodium] 5,000 unit SQ Q12HR vial INSULIN ASPART (NovoLOG) [NovoLOG (formulary)] 0 unit SQ ACHS vial Collagenase [Santyl] 1 applic TOPICAL HS applic Furosemide [Lasix] 60 mg PO BID #60 tablet Insulin Detemir (Levemir) [Levemir] 13 unit SQ HS syr Sodium Bicarbonate Tab 650 mg PO QID tab Continue Aspirin [[place] Aspirin EC] 81 mg PO DAILY Famotidine [Pepcid] 20 mg PO Q12HR 30 Days #60 tab metroNIDAZOLE [Flagyl] 500 mg PO Q8HR #90 tab Acetaminophen [Tylenol] 650 mg PO Q8H PRN PRN Reason: Pain Levothyroxine Sodium [Synthroid] 150 mcg PO DAILY Carvedilol [Coreg] 12.5 mg PO BID Insulin Regular, Human [humulin R U-500 Kwikpen] 110 unit SQ BID Cefepime [Maxipime] 2 gm IVPB Q12HR Discontinued Multivitamins, Thera [Multivitamin (formulary)] 1 tab PO DAILY Spironolactone [Aldactone] 25 mg PO DAILY Lisinopril [Zestril] 10 mg PO DAILY Furosemide [Lasix] 20 mg PO DAILY Discharge Medication List Aspirin [[place] Aspirin EC] 81 mg PO DAILY 01/24/20 [History] Famotidine [Pepcid] 20 mg PO Q12HR 30 Days #60 tab 01/30/20 [Rx] metroNIDAZOLE [Flagyl] 500 mg PO Q8HR #90 tab 01/30/20 [Rx] Acetaminophen [Tylenol] 650 mg PO Q8H PRN 02/02/20 [History] Carvedilol [Coreg] 12.5 mg PO BID 02/13/20 [History] Cefepime [Maxipime] 2 gm IVPB Q12HR 02/13/20 [History] Insulin Regular, Human [humulin R U-500 Kwikpen] 110 unit SQ BID 02/13/20 [History] Levothyroxine Sodium [Synthroid] 150 mcg PO DAILY 02/13/20 [History] Collagenase [Santyl] 1 applic TOPICAL HS applic 03/05/20 [Rx] Heparin Sodium,Porcine [Heparin Sodium] 5,000 unit SQ Q12HR vial 03/05/20 [Rx] INSULIN ASPART (NovoLOG) [NovoLOG (formulary)] 0 unit SQ ACHS vial 03/05/20 [Rx] Furosemide [Lasix] 60 mg PO BID #60 tablet 03/06/20 [Rx] Insulin Detemir (Levemir) [Levemir] 13 unit SQ HS syr 03/06/20 [Rx] Sodium Bicarbonate Tab 650 mg PO QID tab 03/06/20 [Rx] Follow up Appointment(s)/Referral(s): Edwin,Sandee Martin [NON-STAFF] - [facility],[place] [NON-STAFF] - 1 Week Caleb Hernández MD [STAFF PHYSICIAN] - 03/15/20 10:00 am (at the wound center ) Yasemin Ohara MD [STAFF PHYSICIAN] - 1 Week (Patient needs to call in a few days to schedule f/u. Office is unable to accomodate scheduling at this time. ) Patient Instructions/Handouts: Heart Failure (DC), Type 2 Diabetes in Adults: New Diagnosis (DC) Activity/Diet/Wound Care/Special Instructions: heart healthy and renal diet activity is limited per Dr. Hernández: To BLE wounds Daily: Santyl, wet to dry dressing, wrap with kerlix Discharge Disposition: TRANSFER TO SNF/ECF
[2020-03-06 11:22] LABS: Glucose,Whole Blood 152 mg/dL (75-99)
[2020-03-06 11:31] VITALS: PULSE 74; RESP 16
[2020-03-06] MEDS: metroNIDAZOLE 500 MG TAB PO SCH ×2 (13:07→15:34)
[2020-03-06] MEDS: carvediloL 12.5 MG TAB PO SCH (13:07)
[2020-03-06] MEDS: ASPIRIN 81 MG PO SCH (13:07)
[2020-03-06] MEDS: FUROSEMIDE 10 MG/ML 10 ML VIAL IV SCH (13:08)
[2020-03-06] MEDS: MULTIVITAMINS, THERA 1 EACH TAB PO SCH (13:08)
[2020-03-06] MEDS: FAMOTIDINE 20 MG TAB PO SCH (13:08)
[2020-03-06] MEDS: HEPARIN SODIUM,PORCINE 5,000 UNIT/ML 1 ML VIAL SQ SCH (13:08)
[2020-03-06] MEDS: CEFEPIME 1 GM in SODIUM CHLORIDE 0.9% 50 ML IVPB SCH (13:31)
[2020-03-06 14:26] VITALS: BP 117/77; TEMP 98
--- NOTE | 2020-03-06 16:10 | PN ---
PROGRESS NOTE DATE OF SERVICE: 03/06/2020 REASON FOR FOLLOWUP: Left heel osteomyelitis. INTERVAL HISTORY: Patient is currently afebrile, has been breathing comfortably. Denies having any chest pain or shortness of breath. No cough. No nausea. No abdominal pain. No pain to the left heel. PHYSICAL EXAMINATION: Blood pressure is 117/77, pulse 74, temperature 98. He is 100% on 2 L nasal cannula. General description is a middle-aged male lying in bed in no distress. Respiratory system: Unlabored breathing, clear to auscultation anteriorly. Heart S1, S2. Regular rate and rhythm. Abdomen is soft, no tenderness. Left heel is dressed with no obvious drainage on the dressing. LABS: No new labs have been obtained today. DIAGNOSTIC IMPRESSION AND PLAN: Patient with left heel osteomyelitis in this patient who is status post debridement of his left heel. Wound is currently covered with cefepime 1 g q.12h. Plan is to continue for another 3-4 weeks. Local wound care with Santyl and close outpatient follow up. MMODL / IJN: [id number] /
--- NOTE | 2020-03-06 16:34 | P.PN ---
Subjective Progress Note Date: 03/06/20 Follow-up for acute kidney injury hemodialysis. Hemodialysis today. Objective - Vital Signs Vital signs: Vital Signs Temp 98.0 F 03/06/20 12:05 Pulse 74 03/06/20 12:05 Resp 16 03/06/20 12:05 BP 117/77 03/06/20 12:05 Pulse Ox 100 03/06/20 12:05 Intake & Output 03/05/20 03/06/20 03/06/20 18:59 06:59 18:59 Intake Total 1130 Output Total 1600 1600 Balance -470 -1600 Intake: IV 50 Cefepime 1 gm In Sodium 50 Chloride 0.9% 50 ml @ 12. 5 mls/hr IVPB Q12HR [facility] Rx#:[id number] Oral 1080 Output: Urine 100 100 Hemodialysis 1500 1500 Other: Voiding Method Indwelling Catheter Indwelling Catheter Indwelling Catheter # Bowel Movements 3 2 3 - Exam No acute distress S1-S2 heard Decreased breath sounds Abdomen soft Left jugular permacath - Labs CBC & Chem 7: 03/01/20 04:35 03/01/20 04:35 Labs: Abnormal Lab Results - Last 24 Hours (Table) 03/05/20 03/05/20 03/05/20 Range/Units 17:00 17:07 21:02 POC Glucose (mg/dL) 198 H 214 H 286 H (75-99) mg/dL 03/06/20 03/06/20 Range/Units 07:12 11:19 POC Glucose (mg/dL) 225 H 152 H (75-99) mg/dL Assessment and Plan Assessment: #1 oliguric acute kidney injury secondary to ischemic ATN currently dialysis dep endent. #2 chronic kidney disease stage III suspect nephrosclerosis #3 status post cardiopulmonary arrest #4 left heel diabetic ulcer status post debridement #5 cardiomyopathy with EF of 50% and severe pulmonary hypertension #6 volume overload Plan: #1 had hemodialysis today. Next treatment on Sunday at [facility] dialysis unit. #2 monitor closely for recovery of renal function.
[2020-03-06] MEDS ORDERED: INSULIN DETEMIR (LEVEMIR) 100 UNIT/ML SYR SQ SCH (21:00)
--- NOTE | 2020-03-10 02:40 | CDI ---
Documentation Clarification Form Date: 03/10/2020 From: Cristopher Oliver Phone: If you have a question about this query, please contact Divya Aragon, Sealing Machine Operator at [phone] between 8am and 5pm. Admit Date: 02/16/2020 Discharge Date: 03/06/2020 Patient Name: Brown Lopez Visit Number: [id number] ATTENTION: The Clinical Documentation Specialists (CDI) and [facility] Coding Staff appreciate your assistance in clarifying documentation. Please respond to the clarification below the line at the bottom and electronically sign. The CDI & [facility] Coding staff will review the response and follow-up if needed. Please note: Queries are made part of the Legal Health Record. If you have any questions, please contact the author of this message via ITS. Dear Binh Gonzales MD., Bilateral lower extremity cellulitis and osteomyelitis of the left calcaneal bone, with Left heel diabetic ulcer, status post debridement Acute hypoxic hypercapnic respiratory failure, secondary to pulmonary congestion as well as sepsis from his bilateral leg cellulitis and osteomyelitis, andsevere pulmonary hypertension. History/risk factors : CKD, ESRD, hemodialysis DM with foot ulcer Clinical indicators: Foot pain ,osteomyelitis, debridement on 01/30/202003/04 progress note stated as "Patient still need to be evaluated by Dr. Hernández tomorrow for his left heel wound for possible more debridement versus outpatient follow-up, so patient is medically stable for discharge. 03/06 Dr. Lev Hazel mentioned as "Patient with left heel osteomyelitis in this patient who is status post debridement of his left heel". Per DS note "Vascular surgery did debridement of his left lower extremity which is showing infection as deep as the bone, patient is at-risk of foot amputation if no improvement". In your professional opinion,Whether Debridement is performed in this visit? YES(Please specify depth and type(excisional or Non excisional Left Heel) NO (Not in this Visit) Other, please specify i did not do any debridement , the vascular surgery team were following the case MTDD
== END 2020-03-06 17:36 | DRG 871 ==
LOC: 5NMEDONC 15:38 → 2SICU 02-26 13:44 → 3SCARD 03-02 23:01 → 6NMEDSUR 03-04 17:15
PROVIDERS: ADMIT Hospitalist; ATTEND Hospitalist
PROC: 02HV33Z Insertion of Infusion Device into Superior Vena Cava, Percutaneous Approach (ICD-10-PCS; 2020-02-24)
PROC: 5A1D70Z Performance of Urinary Filtration, Intermittent, Less than 6 Hours Per Day (ICD-10-PCS; 2020-02-24)
PROC: 0JHM3XZ Insertion of Tunneled Vascular Access Device into Left Upper Leg Subcutaneous Tissue and Fascia, Percutaneous Approach (ICD-10-PCS; 2020-02-24)
PROC: 5A09557 Assistance with Respiratory Ventilation, Greater than 96 Consecutive Hours, Continuous Positive Airway Pressure (ICD-10-PCS; 2020-02-24)
PROC: 02HV33Z Insertion of Infusion Device into Superior Vena Cava, Percutaneous Approach (ICD-10-PCS; principal; 2020-03-03 18:20)
PROC: 0JH63XZ Insertion of Tunneled Vascular Access Device into Chest Subcutaneous Tissue and Fascia, Percutaneous Approach (ICD-10-PCS; principal; 2020-03-03 18:20)
PROC: 0JPW3XZ Removal of Tunneled Vascular Access Device from Lower Extremity Subcutaneous Tissue and Fascia, Percutaneous Approach (ICD-10-PCS; principal; 2020-03-03 18:20)
DX: A41.4 Sepsis due to anaerobes (principal); G93.41 Metabolic encephalopathy; J96.21 Acute and chronic respiratory failure with hypoxia; J96.22 Acute and chronic respiratory failure with hypercapnia; N17.0 Acute kidney failure with tubular necrosis; I50.43 Acute on chronic combined systolic (congestive) and diastolic (congestive) heart failure; I63.9 Cerebral infarction, unspecified; N18.6 End stage renal disease; Z68.42 Body mass index [BMI] 45.0-49.9, adult; I42.9 Cardiomyopathy, unspecified; M86.172 Other acute osteomyelitis, left ankle and foot; E87.2 Acidosis; I13.2 Hypertensive heart and chronic kidney disease with heart failure and with stage 5 chronic kidney disease, or end stage renal disease; R47.01 Aphasia; L03.115 Cellulitis of right lower limb; L03.116 Cellulitis of left lower limb; K52.1 Toxic gastroenteritis and colitis; E66.2 Morbid (severe) obesity with alveolar hypoventilation; E03.9 Hypothyroidism, unspecified; G47.33 Obstructive sleep apnea (adult) (pediatric); I27.20 Pulmonary hypertension, unspecified; E11.69 Type 2 diabetes mellitus with other specified complication; E11.621 Type 2 diabetes mellitus with foot ulcer; E11.22 Type 2 diabetes mellitus with diabetic chronic kidney disease; M19.90 Unspecified osteoarthritis, unspecified site; R40.2363 Coma scale, best motor response, obeys commands, at hospital admission; R40.2143 Coma scale, eyes open, spontaneous, at hospital admission; R40.2253 Coma scale, best verbal response, oriented, at hospital admission; E11.42 Type 2 diabetes mellitus with diabetic polyneuropathy; R53.81 Other malaise; L89.322 Pressure ulcer of left buttock, stage 2; L89.312 Pressure ulcer of right buttock, stage 2; L89.612 Pressure ulcer of right heel, stage 2; L89.622 Pressure ulcer of left heel, stage 2; A41.59 Other Gram-negative sepsis; L89.892 Pressure ulcer of other site, stage 2; Z20.828 Contact with and (suspected) exposure to other viral communicable diseases; R26.9 Unspecified abnormalities of gait and mobility; D63.1 Anemia in chronic kidney disease; E11.65 Type 2 diabetes mellitus with hyperglycemia; N50.89 Other specified disorders of the male genital organs; T36.8X5A Adverse effect of other systemic antibiotics, initial encounter; R65.20 Severe sepsis without septic shock; E87.6 Hypokalemia; J44.9 Chronic obstructive pulmonary disease, unspecified; R13.10 Dysphagia, unspecified; I07.1 Rheumatic tricuspid insufficiency; T50.2X5A Adverse effect of carbonic-anhydrase inhibitors, benzothiadiazides and other diuretics, initial encounter; T68.XXXA Hypothermia, initial encounter; T36.95XA Adverse effect of unspecified systemic antibiotic, initial encounter; Z86.73 Personal history of transient ischemic attack (TIA), and cerebral infarction without residual deficits; Z99.2 Dependence on renal dialysis; Z86.14 Personal history of Methicillin resistant Staphylococcus aureus infection; Z98.890 Other specified postprocedural states; Z80.8 Family history of malignant neoplasm of other organs or systems; Z80.1 Family history of malignant neoplasm of trachea, bronchus and lung; Z83.79 Family history of other diseases of the digestive system; Z79.890 Hormone replacement therapy; Z79.82 Long term (current) use of aspirin; Z79.4 Long term (current) use of insulin; Z79.899 Other long term (current) drug therapy; Z88.0 Allergy status to penicillin; Z88.2 Allergy status to sulfonamides; Z87.19 Personal history of other diseases of the digestive system; Z86.74 Personal history of sudden cardiac arrest; Z88.1 Allergy status to other antibiotic agents
CPT/HCPCS: 36558; 36600; 71045; 76937; 77001; 80048; 80053; 82728; 82805; 83540; 83550; 83605; 83735; 84132; 85025; 86704; 86706; 87040; 87324; 87340; 90935; 94660